=== PATIENT | male | born 1935 | race Caucasian/White ===

== ENCOUNTER → 2017-07-13 | Outpatient (CLI) | payer MEDICARE, OTHER ==
[~2017-07-13] MED LIST: ACTOS15 MG; ALPHA LIPOIC ACID; COD LIVER OIL; ERYTHROMYCIN500 M1 PO; HYDR-3720 PO; IRBE75TA31; ITRA100C; LIDOCAINE JELLY 2% (XYLOCAINE) 5 ML TUBE TOP ONE; MAGNESIUM; MULT-418; NFAMINITAB; OIL OF OREGANO; OMG1KC; TRIVITA; UBID100C8; ZOLP12.5
--- NOTE | 2017-07-13 14:23 | Diagnostic Imaging Report ---
EXAM: Retrograde urethrogram INDICATION: Ureteric stricture Fluoroscopy time: One minute and one second 25 cc of Omnipaque 300 is administered retrogradely show the external meatus. FINDINGS: There are multiple strictures seen in the penile urethra with severe focal strictures in the distal aspect of the penile urethra and areas of dilatation in between. In the posterior aspect of the penile urethra there is a long moderately severe stricture approximately 7 cm in length. The bulbar urethra appears patent. No contrast is seen through the valve in the prostatic urethra segment. 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 Report was faxed to office of Dr. Darden by landen at 2:25 p.m. Dictated by: Dictated on workstation # [id number]
== END ==
LOC: RAD 08:47
PROVIDERS: ATTEND Urology
DX: N35.9 Urethral stricture, unspecified (principal)
CPT/HCPCS: 74450

== ENCOUNTER 2020-01-12 18:52 | Inpatient (IN) | payer MEDICARE, OTHER ==
[~2020-01-12] VITALS: Ht 180.3 cm; Wt 90.5 kg
[2020-01-12] VITALS (11 sets, daily range): BP systolic 101–126; BP diastolic 55–71
[~2020-01-12 18:52] MED LIST changes: -LIDOCAINE JELLY 2% (XYLOCAINE) 5 ML TUBE TOP ONE
--- OUTSIDE RECORDS SUMMARY | 2020-01-12 18:58 | XMS REPORT ---
Author Author Igor FAROOQ Organization [facility] Address [address] [place] [address] Care Team Providers Care [employer] Licensee Name Role Phone PRANAV FAROOQ Unavailable PROBLEMS Unknown Problems ALLERGIES No Information ENCOUNTERS Encounter Location Date Diagnosis [facility] [address] [facility] [id number], [place] [address] Dec, Encounter for immunization Z 23 IMMUNIZATIONS Vaccine Route Administration Date Status TDAP (BOOSTRIX) IM Intramuscular January 17, 2017 Administered SOCIAL HISTORY Never Assessed REASON FOR VISIT Tdap -- jonathan xiao PLAN OF CARE VITAL SIGNS MEDICATIONS Unknown Medications RESULTS No Results PROCEDURES Procedure Date Ordered Result Body Site TDAP (BOOSTRIX) January 17, 2017 SINGLE IMMUNIZATION ADMIN January 17, 2017 INSTRUCTIONS MEDICATIONS ADMINISTERED No Known Medications
--- OUTSIDE RECORDS SUMMARY | 2020-01-12 18:59 | XMS REPORT | Continuity of Care Document ---
Author Organization Unknown Address Unknown Phone Unavailable Allergies Active Description Code Type Severity Reaction Onset Reported/Identified Relationship to Patient Clinical Status Yes NO KNOWN DRUG ALLERGIES UNKNOWN NO KNOWN DRUG ALLERG Yes NO KNOWN DRUG ALLERGIES UNKNOWN UNKNOWN Yes No Known Drug Allergies [id number] Drug Allergy Unknown N/A 07/13/2017 Medications Medication Packaging Start Date St op Date Route Dosage Sig NORMAL SALINE 1000CC IV BAG INJ 0.9 % (NS 1000CC IV BAG) ml 11/27/2018 12/12/2018 CONTINUOUSEVERY 0 Hour Problems Date Dx Coded Attending Type Code Diagnosis Diagnosed By 02/22/2017 Brittani KAY 715.16 OSTEOARTHROSIS, LOCALIZED, PRIMARY, INVOLVING LOWER LEG 02/22/2017 Brittani KAY M17.11 UNILATERAL PRIMARY OSTEOARTHRITIS, RIGHT KNEE 02/22/2017 Brittani KAY V43.65 KNEE JOINT REPLACED BY OTHER MEANS 02/22/2017 Brittani KAY V54.89 OTHER ORTHOPEDIC AFTERCARE 02/22/2017 Brittani KAY Z47.89 ENCOUNTER FOR OTHER ORTHOPEDIC AFTERCARE 02/22/2017 Brittani KAY Z96.651 PRESENCE OF RIGHT ARTIFICIAL KNEE JOINT 07/14/2017 CELINE WREN MD Ot N35.9 URETHRAL STRICTURE, UNSPECIFIED 08/04/2017 CELINE WREN MD Ot N35.9 URETHRAL STRICTURE, UNSPECIFIED 04/19/2018 W 724.2 LUMBAGO 04/19/2018 W M54.5 LOW BACK PAIN 02/09/2019 AYLEEN HIDALGO APRN 780 .2 SYNCOPE AND COLLAPSE 02/09/2019 AYLEEN HIDALGO APRN R55 SYNCOPE AND COLLAPSE 12/19/2019 CELINE WREN MD Ot N35.9 URETHRAL STRICTURE, UNSPECIFIED Procedures There is no data. Results Test Result Range Lipid Panel - 07/03/16 06:33 C/HDL 4.8 3.7-6.7 Cholesterol 168 mg/dL 100-240 HDL 35 mg/dL 30-85 LDL-Calculated 107 mg/dL 0-100 Trig 132 mg/dL 35-160 VLDL 26 mg/dL 0-42 Thyroid Stimulating Hormone - 07/05/17 0 7:11 TSH 2.45 mIU/mL 0.32-5.00 Holter Montor 24 Hour - 08/26/17 15:23 Holter Monitor 24 Hour Complete Thyroid Stimulating Hormone - 12/26/17 0 6:24 TSH 1.41 mIU/mL 0.32-5.00 Testosterone - 10/31/18 07:20 Testosterone 431.52 ng/dL 127.18-1020.36 Thyroid Stimulating Hormone - 10/31/18 0 7:20 TSH 2.32 mIU/mL 0.32-5.00 MRSA Screen - 11/23/18 12:02 FINAL CULTURE RESULTS MRSA Negative Nasal Culture MEDIA PLATED Setup at 12:10 on 11/23/2018 EKG - 11/23/18 12:02 EKG Complete Surgical Pathology - 11/27/18 12:13 Surg Path Sent to [facility] Pathology Cardiac Panel - 02/09/19 11:20 CK 159 U/L 26-174 CK-MB 2.7 ng/ml 0.0-9.2 Myoglobin 134.7 ng/ml 1.6-154.9 Troponin <0.020 ng/mL 0.0-0.4 Encounters ACCT No. Visit Date/Time Discharge Status Pt. Type Provider Facility Loc./Unit Complaint [id number] 01/11/2020 15:40:00 [facility] [id number] 07/13/2017 08:47:00 017 23:59:59 CLS Outpatient SIENA HANSEN, CELINE Mckeon [facility] RAD STRICTURES [id number] 05/21/2019 12:03:00 05/21/2019 23:59: 00 DIS Outpatient JOHN LAWRENCE [id number] 05/21/2019 12:01:00 05/21/2019 23:59: 00 DIS Outpatient JOHN LAWRENCE [id number] 04/02/2019 07:19:00 04/02/2019 23:59: 00 DIS Outpatient JOHN LAWRENCE [id number] 02/09/2019 10:56:00 02/09/2019 13:17: 00 DIS Outpatient AYLEEN HIDALGO APRN [facility] [id number] 11/27/2018 00:00:00 11/27/2018 13:35: 00 DIS Outpatient Viridiana Newsomevanessa [id number] 11/23/2018 10:30:00 11/23/2018 23:59: 00 DIS Outpatient Viridiana Newsomevanessa [id number] 10/31/2018 07:14:00 10/31/2018 23:59: 00 DIS Outpatient NATHANIEL OLIVA [id number] 04/11/2018 08:18:00 04/11/2018 23:59: 00 DIS Outpatient NATHANIEL OLIVA [id number] 12/26/2017 06:08:00 12/26/2017 23:59: 00 DIS Outpatient NATHANIEL OLIVA [id number] 08/26/2017 15:15:00 08/26/2017 23:59: 00 DIS Outpatient Igor Clements [id number] 07/05/2017 07:08:00 07/05/2017 23:59: 00 DIS Outpatient NATHANIEL OLIVA [id number] 02/25/2017 13:41:00 04/19/2017 09:45: 00 DIS Outpatient Brittani KAY [id number] 10/01/2016 07:23:00 10/01/2016 23:59: 00 DIS Outpatient NATHANIEL OLIVA [id number] 07/03/2016 06:32:00 07/03/2016 23:59: 00 DIS Outpatient NATHANIEL OLIVA [id number] 11/23/2018 12:43:19 Document Registration [id number] 04/13/2018 12:43:00 Document Registration
[2020-01-12] MEDS ORDERED: LACTATED RINGERS 1,000 ML IV ONE (19:07)
--- NOTE | 2020-01-12 19:15 | NUR ---
NASAL SWAB COMPLETED FOR COVID TESTING PER DR HANEY
[2020-01-12 19:24] LABS: BASOPHILS % (AUTO) 0 % (0-10); EOSINOPHILS % (AUTO) 0 % (0-10); HEMATOCRIT 36 % (40-54); HEMOGLOBIN 12.1 G/DL (13.3-17.7); LYMPHOCYTES # (AUTO) 0.3 X 10^3 (1.0-4.0); LYMPHOCYTES % (AUTO) 3 % (12-44); MEAN CORPUSCULAR HEMOGLOBIN 30 PG (25-34); MEAN CORPUSCULAR HGB CONC 34 G/DL (32-36); MEAN CORPUSCULAR VOLUME 90 FL (80-99); MONOCYTES # (AUTO) 0.6 X 10^3 (0.0-1.0); MONOCYTES % (AUTO) 6 % (0-12); NEUTROPHILS # (AUTO) 8.2 X 10^3 (1.8-7.8); NEUTROPHILS % (AUTO) 90 % (42-75); PLATELET COUNT 157 10^3/uL (130-400); RED CELL DISTRIBUTION WIDTH 14.9 % (10.0-14.5)
[2020-01-12] MEDS ORDERED: ACETAMINOPHEN 500 MG TAB (TYLENOL) PO ONE (19:30)
[2020-01-12 19:37] LABS: ALBUMIN 3.6 GM/DL (3.2-4.5); POTASSIUM 4.2 MMOL/L (3.6-5.0)
[2020-01-12 19:38] LABS: CALCIUM 8.7 MG/DL (8.5-10.1)
[2020-01-12 19:39] LABS: TOTAL PROTEIN 6.8 GM/DL (6.4-8.2)
[2020-01-12 19:41] LABS: BILIRUBIN,TOTAL 1.4 MG/DL (0.1-1.0)
[2020-01-12 19:43] LABS: CREATININE SERUM 2.23 MG/DL (0.60-1.30)
[2020-01-12 19:46] LABS: MAGNESIUM 2.1 MG/DL (1.6-2.4)
[2020-01-12 19:47] LABS: ERYTHROCYTE SEDIMENTATION RATE 76 MM/HR (0-30)
--- NOTE | 2020-01-12 19:48 | ED General ---
General Chief Complaint: Trauma-Non Activation Stated Complaint: COUGH,FALL Nursing Triage Note: PATIENT FELL BACKWARDS HIT TV, DENIES PAIN Nursing Sepsis Screen: No Definite Risk Source of Information: Patient (VERY LIMITED HISTORIAN AND HARD OF HEARING) History of Present Illness Date Seen by Provider: Jan 12, 2020 Time Seen by Provider: 19:00 Initial Comments PT ARRIVES VIA POV FROM HOME PT HAS NOT FELT WELL FOR THE LAST FEW DAYS STARTED OUT WITH LOW GRADE TEMP OF 99 THAT IS NOW 102.8 HAS HAD A NON-PRODUCTIVE COUGH HAS HAD INCREASING DIZZINESS AND GENERALIZED WEAKNESS, WORSE TODAY\\ TODAY, HE HAD BEEN SITTING IN HIS CHAIR, AND STOOD UP, GOT DIZZY, LOST BALANCE/GOT WEAK AND "FELL BACKWARD"--FAMILY DESCRIBES NEAR-SYNCOPAL EPISODE. PT CANNOT RECALL EVENTS. PT WITH GENERALIZED WEAKNESS AND WAS NOT ABLE TO GET UP FROM THE FLOOR--MULTI-PERSON ASSIST TO GET UP. NO HEAD INJURY NO INCONTINENCE NO HEADACHE NO VISION CHANGES NO CHEST PAIN NO SHORTNESS OF BREATH NO NAUSEA/VOMITING NO PARESTHESIAS OR MOTOR DEFICITS NO SEIZURE ACTIVITY PT HAD AN APPOINTMENT WITH DR. OLIVA ON TUESDAY, BUT WAS ADVISED TO GO TO [facility] AND BE TESTED FOR COVID, WHICH HE DID YESTERDAY. RESULTS ARE NOT BACK OF YET. 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 PT IS NON INSULIN DEPENDENT DIABETIC, AND HAS HAD A BOVINE AORTIC VALVE REPLACEMENT--ON ASPIRIN HAD "MILD" DE IN --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/NO INTERVENTION NO CARDIAC STENTS OR ANGIOPLASTY PCP: DR. OLIVA PROVER: [facility]--REPLACED DR. Magalys BRANDT. Allergies and Home Medications Allergies Coded Allergies: No Known Drug Allergies (Unverified , 07/13/17) Patient Home Medication List Home Medication List Reviewed: Yes Review of Systems Review of Systems Constitutional: see HPI, fever, malaise, weakness EENTM: no symptoms reported Respiratory: see HPI, cough; No short of breath Cardiovascular: see HPI; No chest pain, No edema; other (NEAR-SYNCOPE) Gastrointestinal: no symptoms reported Genitourinary: no symptoms reported Musculoskeletal: no symptoms reported Skin: other (SKIN TEAR ON RIGHT ELBOW) Psychiatric/Neurological: See HPI (NEAR-SYNCOPE); Denies Headache, Denies Numbness, Denies Paresthesia, Denies Seizure, Denies Tingling Past Nckdftz-Wojvnc-Fuacmy Hx Past Med/Social Hx: Reviewed and Corrections made Patient Social History Alcohol Use: Rarely Uses Recreational Drug Use: No Smoking Status: Former Smoker Type Used: Cigarettes 2nd Hand Smoke Exposure: No Recent Foreign Travel: No Contact w/Someone Who Travel: No Recent Infectious Disease Expo: No Recent Hopitalizations: No Physical Abuse: No Sexual Abuse: No Mistreated: No Fear: No Immunizations Up To Date Tetanus Booster (TDap): Unknown Past Medical History Surgeries: Yes (BOVINE AORTIC VALVE REPLACEMENT; CARDIAC CATHS; APPY; KNEE REPLACEMENT) Appendectomy, Joint Replacement, Orthopedic, Valve Replacement Respiratory: No Cardiac: Yes (MILD DE -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;CARDIAC CATHS-NO INTERVENTION;BOVINE AORTIC RAKEL) High Cholesterol, Hypertension, Valvular Heart Disease Neurological: Yes (POSSIBLE TIA YEARS AGO) Genitourinary: Yes Prostate Problems Gastrointestinal: No Musculoskeletal: Yes (KNEE REPLACEMENT) Arthritis Endocrine: Yes Diabetes, 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 oz. kg; 31.00 BMI Method: General Appearance: No Apparent Distress, WD/WN, Other (GENERALIZED WEAKNESS) HEENT: PERRL/EOMI, Normal ENT Inspection Neck: Full Range of Motion, Normal Inspection, Non Tender, Supple; No Carotid Bruit; JVD Respiratory: Normal Breath Sounds, No Accessory Muscle Use, No Respiratory Distress Cardiovascular: No Edema, No JVD, Normal Peripheral Pulses, Systolic Murmur (2/6), Irregularly Irregular Gastrointestinal: Normal Bowel Sounds, No Organomegaly, No Pulsatile Mass, Non Tender, Soft Back: No CVA Tenderness Extremity: Normal Capillary Refill, Normal Inspection, Normal Range of Motion, Non Tender, No Calf Tenderness, No Pedal Edema, Other (MINOR ABRASION/SKIN TEAR RIGHT ELBOW) Neurologic/Psychiatric: Alert, Oriented x3 (BUT POOR MEMORY), No Motor/Sensory Deficits, 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 Norm as Tested Skin: Normal Color, Warm/Dry; No Rash Focused Exam Sepsis Stage: Sepsis Possible Source: Pulmonary Lactate Level 01/12/20 19:10: Lactic Acid Level 1.43 01/12/20 23:10: Lactic Acid Level 0.84 Time of Focused Exam: 20:00 Respiratory: Normal Breath Sounds, No Accessory Muscle Use, No Respiratory Distress Cardiovascular: Regular Rate, Rhythm, Normal Peripheral Pulses Peripheral Pulses: 2+ Dorsalis Pedis (R), 2+ Left Dors-Pedis (L) Skin: normal color, warm/dry Lactic Acid Level Laboratory Tests Test 01/12/20 23:10 Lactic Acid Level 0.84 MMOL/L (0.50-2.00) Within 3hrs of presentation: Admin fluids, Admin ABX, Blood cultures prior to ABX's, Focus exam, Lactate level Progress/Results/Core Measures Suspected Sepsis Recent Fever Within 48 Hours: Yes Infection Criteria Present: Suspected New Infection New/Unexplained Altered Menta: No Sepsis Screen: No Definite Risk SIRS Temperature: Pulse: 60 Respiratory Rate: 20 Laboratory Tests 01/12/20 19:10: White Blood Count 9.0 Blood Pressure 99 /46 Mean: 63 01/12/20 19:10: Lactic Acid Level 1.43 01/12/20 23:10: Lactic Acid Level 0.84 Laboratory Tests 01/12/20 19:10: Creatinine 2.23H, INR Comment 1.1, Platelet Count 157, Total Bilirubin 1.4H Results/Orders Lab Results Laboratory Tests Test 01/12/20 19:10 01/12/20 19:15 01/12/20 19:20 01/12/20 23:10 Range/Units White Blood Count 9.0 4.3-11.0 10^3/uL Red Blood Count 4.03 L 4.35-5.85 10^6/uL Hemoglobin 12.1 L 13.3-17.7 G/DL Hematocrit 36 L 40-54 % Mean Corpuscular Volume 90 80-99 FL Mean Corpuscular Hemoglobin 30 25-34 PG Mean Corpuscular Hemoglobin Concent 34 32-36 G/DL Red Cell Distribution Width 14.9 H 10.0-14.5 % Platelet Count 157 130-400 10^3/uL Mean Platelet Volume 11.0 H 7.4-10.4 FL Neutrophils (%) (Auto) 90 H 42-75 % Lymphocytes (%) (Auto) 3 L 12-44 % Monocytes (%) (Auto) 6 0-12 % Eosinophils (%) (Auto) 0 0-10 % Basophils (%) (Auto) 0 0-10 % Neutrophils # (Auto) 8.2 H 1.8-7.8 X 10^3 Lymphocytes # (Auto) 0.3 L 1.0-4.0 X 10^3 Monocytes # (Auto) 0.6 0.0-1.0 X 10^3 Eosinophils # (Auto) 0.0 0.0-0.3 10^3/uL Basophils # (Auto) 0.0 0.0-0.1 10^3/uL Erythrocyte Sedimentation Rate 76 H 0-30 MM/HR Prothrombin Time 14.5 12.2-14.7 SEC INR Comment 1.1 0.8-1.4 Activated Partial Thromboplast Time 40 H 24-35 SEC D-Dimer 1.42 H 0.00-0.49 UG/ML Sodium Level 135 135-145 MMOL/L Potassium Level 4.2 3.6-5.0 MMOL/L Chloride Level 103 98-107 MMOL/L Carbon Dioxide Level 22 21-32 MMOL/L Anion Gap 10 5-14 MMOL/L Blood Urea Nitrogen 38 H 7-18 MG/DL Creatinine 2.23 H 0.60-1.30 MG/DL Estimat Glomerular Filtration Rate 28 BUN/Creatinine Ratio 17 Glucose Level 163 H 70-105 MG/DL Lactic Acid Level 1.43 0.84 0.50-2.00 MMOL/L Calcium Level 8.7 8.5-10.1 MG/DL Corrected Calcium 9.0 8.5-10.1 MG/DL Magnesium Level 2.1 1.6-2.4 MG/DL Total Bilirubin 1.4 H 0.1-1.0 MG/DL Aspartate Amino Transf (AST/SGOT) 22 5-34 U/L Alanine Aminotransferase (ALT/SGPT) 14 0-55 U/L Alkaline Phosphatase 60 40-136 U/L Lactate Dehydrogenase 200 125-220 U/L Total Creatine Kinase 227 H 30-200 U/L Creatine Kinase MB 1.9 <6.6 NG/ML Myoglobin 353.5 H 10.0-92.0 NG/ML Troponin I 0.190 H <0.028 NG/ML C-Reactive Protein High Sensitivity 15.84 H 0.00-0.50 MG/DL B-Type Natriuretic Peptide 924.7 H <100.0 PG/ML Total Protein 6.8 6.4-8.2 GM/DL Albumin 3.6 3.2-4.5 GM/DL Procalcitonin 0.40 H <0.10 NG/ML TSH Warren Testing 2.46 0.35-4.94 UIU/ML Glucometer 161 H 70-110 MG/DL My Orders Orders - BENJAMÍN HANEY DO Accucheck Stat ONCE (01/12/20 19:07) Ed Iv/Invasive Line Start (01/12/20:07) Ekg Tracing (01/12/20:07) Monitor-Rhythm Ecg Trace Only (01/12/20:07) Chest 1 View, Ap/Pa Only (01/12/20:07) BNP (01/12/20:07) Cbc With Automated Diff (01/12/20:07) Comprehensive Metabolic Panel (01/12/20:07) Creatine Kinase (01/12/20 19:07) Creatine Kinase Mb (01/12/20:07) Lactic Acid Analyzer (01/12/20 19:07) Magnesium (01/12/20 19:07) Procalcitonin (Pct) (01/12/20 19:07) Protime With Inr (01/12/20:07) Partial Thromboplastin Time (01/12/20:07) Thyroid Analyzer (01/12/20 19:07) Ua Culture If Indicated (01/12/20 19:07) Blood Culture (01/12/20 19:07) Myoglobin Serum (01/12/20 19:07) Troponin I (01/12/20 19:07) Ed Iv/Invasive Line Start (01/12/20 19:07) Lactated Ringers (Lr 1000 Ml Iv Solution (01/12/20 19:07) Fibrin Degradation Products (01/12/20 19:07) Hs C Reactive Protein (01/12/20 19:07) Erythrocyte Sedimentation Rate (01/12/20 19:07) LDH (01/12/20 19:07) Coronavirus Sars-Cov-2 So 2019 (01/12/20 19:07) Acetaminophen Tablet (Tylenol Tablet) (01/12/20 19:30) Ekg Tracing (01/12/20 19:25) Ekg Tracing (01/12/20 20:00) Ekg Tracing (01/12/20 20:00) Ekg Tracing (01/12/20 20:00) Vital Signs Adult Sepsis Patie Q15M (01/12/20 20:13) Remove Rings In Anticipation O (01/12/20 20:13) Ceftriaxone For Iv Use (Rocephin For I (01/12/20 20:15) Azithromycin Injection (Zithromax Inject (01/12/20 20:15) Magnesium 1 Gm/100 Ml Ivpb (Magnesium Vasquez (01/12/20 20:30) Enoxaparin Injection (Lovenox Injection) (01/12/20 20:30) Ed Iv/Invasive Line Start (01/12/20 20:56) Ns Iv 1000 Ml (Sodium Chloride 0.9%) (01/12/20 20:56) 1/2 Ns Iv Solution (0.45% Sodium Chlorid (01/12/20 22:00) Medications Given in ED Current Medications Medications Dose Ordered Sig/Mary Kate Route Start Time Stop Time Status Last Admin Dose Admin Acetaminophen 1,000 mg ONCE ONCE PO 01/12/20 19:30 01/12/20 19:31 DC 01/12/20 19:35 1,000 MG Azithromycin 500 mg/Sodium Chloride 250 ml @ 250 mls/hr ONCE ONCE IV 01/12/20 20:15 01/12/20 21:14 DC 01/12/20 20:35 250 MLS/HR Ceftriaxone Sodium 1000 mg/ Sterile Water 10 ml @ 200 mls/hr ONCE ONCE IV 01/12/20 20:15 01/12/20 20:17 DC 01/12/20 20:24 200 MLS/HR Enoxaparin Sodium 100 mg ONCE ONCE SC 01/12/20 20:30 01/12/20 20:31 DC 01/12/20 20:35 100 MG Lactated Ringer's 1,000 ml @ 0 mls/hr Q0M ONCE IV 01/12/20 19:07 01/12/20 19:11 DC 01/12/20 19:22 0 MLS/HR Vital Signs/I&O 01/12/20 01/12/20 01/12/20 01/12/20 18:58 19:35 19:50 20:13 Temp 39.3 39.3 38.0 Pulse 60 61 59 Resp 20 22 18 B/P (MAP) 99/46 (63) 126/64 (84) 113/56 (75) Pulse Ox 97 95 93 O2 Delivery Room Air Room Air Room Air 01/12/20 01/12/20 01/12/20 01/12/20 20:30 20:53 21:00 21:30 Temp 36.9 Pulse 57 62 54 58 Resp 18 21 23 18 B/P (MAP) 114/59 (77) 107/68 (81) 110/55 (73) 103/57 (72) Pulse Ox 94 96 94 95 O2 Delivery Room Air Room Air Room Air Room Air 01/12/20 01/12/20 01/12/20 01/12/20 22:11 22:15 22:21 22:30 Temp 36.9 37.0 Pulse 50 60 60 60 Resp 24 B/P (MAP) 96/41 107/61 (76) 102/60 (74) Pulse Ox 94 91 91 O2 Delivery Room Air Room Air Room Air 01/12/20 01/12/20 01/12/20 01/12/20 22:45 23:00 23:13 23:30 Pulse 54 53 52 Resp 10 26 25 B/P (MAP) 105/64 (78) 101/64 (76) 108/71 (83) Pulse Ox 94 90 93 O2 Delivery Room Air Room Air Room Air Room Air 01/13/20 01/13/20 01/13/20 00:21 01:00 02:25 Temp 39.3 36.4 Pulse 60 51 Pulse Ox 97 O2 Delivery Room Air 01/13/20 00:00 Intake Total 10 ml Balance 10 ml Capillary Refill : Less Than 3 Seconds Blood Pressure Mean: 63 Point of Care Testing Finger Stick Blood Glucose: 161 Progress Note : Progress Note PT SEEN IN COVID UNIT. PPE WORN AT ALL TIMES GIVEN IV FLUIDS AND TYLENOL--TEMP DOWN NO DETERIORATION IN PT'S CONDITION VITALS STABLE--O2 SATS IN MID 90'S ON ROOM AIR THROUGHOUT STAY. PT APPEARS TO HAVE NSR WITH INTERMITTENT TYPE 2 HEART BLOCK ECG Initial ECG Impression Date: Jan 12, 2020 Initial ECG Impression Time: 18:57 Initial ECG Rate: 64 Initial ECG Comparisson: No Previous ECG Available Comment SECOND DEGREE HEART BLOCK EKG : EKG Time: 19:14 Rate: 62 Rhythm: Normal Sinus Comment EKG #3 AT 1949--RATE 60--IRREGULAR RATE, NO P-WAVES VISIBLE. NO ST SEGMENT CHANGES EKG #4 AT 1950--RATE 63--IRREGULAR RATE, NO P-WAVES VISIBLE. NO ST SEGMENT CHANGES EKG #5 AT 1951--RATE 60--IRREGULAR RATE, NO P WAVES VISIBLE, NO ST SEGMENT CHANGES Diagnostic Imaging Comments CXR--PER RADIOLOGIST REPORT AT 2009 IMPRESSION: There is cardiomegaly and evidence of prior cardiac surgery. There also appears to be mild pneumonia/atelectasis in the left retrocardiac region and there may be a small amount of fluid in the right lung base. If further study is desired, then a follow-up PA and lateral chest would be recommended. Reviewed: Reviewed by Me Departure Communication (Admissions) Family Conversation SPOKE WITH PT'S DAUGHTER, GRAHAM NICE, AND UPDATED HER ON PT'S CONDITION AND SHE WAS ABLE TO GIVE ADDITIONAL PAST MEDICAL HISTORY 2032--SPOKE WITH PT'S , INFORMED HER OF NEED FOR ADMIT AND UPDATED HER ON PT'S CONDITION. 2019--SPOKE WITH DR. ESCALANTE, PROVER, WILL SEE PT IN CONSULT. NO ADDITIONAL RECOMMENDATIONS AT THIS TIME 2026--SPOKE WITH DR. MOSES, HOSPITALIST. ACCEPTS PT FOR ADMIT. Impression Primary Impression: COVID P.U.I. Additional Impressions: LLL pneumonia Sepsis Elevated troponin Arrhythmia RENAL FAILURE/INSUFFICIENCY Near syncope Generalized weakness Disposition: ADMITTED INPATIENT Condition: Stable Admissions Decision to Admit Reason: Admit from ER (General) Decision to Admit/Date: Jan 12, 2020 Time/Decision to Admit Time: 20:20 Departure-Patient Inst. Referrals: NATHANIEL OLIVA MD (PCP/Family) Primary Care Physician BENJAMÍN HANEY DO Jan 12, 2020 19:48
[2020-01-12 19:55] LABS: CREATINE KINASE MB 1.9 NG/ML (<6.6)
--- NOTE | 2020-01-12 20:01 | Diagnostic Imaging Report ---
INDICATION: Cough. EXAMINATION: Portable erect AP chest at 7:33 p.m. COMPARISON: There is no prior study available for comparison. FINDINGS: The heart is enlarged and there are sternotomy wires and surgical clips evident consistent with prior coronary artery bypass procedure. There is elevation of the right hemidiaphragm and there may be a small amount of fluid and/or pleural thickening involving the right lung base. The right lung, where visualized, is clear. There are a few crowded bronchovascular markings in the left retrocardiac region. There could be an element of mild pneumonia/atelectasis in this area as well. The left upper lung is generally clear. The mediastinum is not widened. The osseous structures are intact. There is an orthopedic plate and screw fixation device overlying the mid cervical spine. IMPRESSION: There is cardiomegaly and evidence of prior cardiac surgery. There also appears to be mild pneumonia/atelectasis in the left retrocardiac region and there may be a small amount of fluid in the right lung base. If further study is desired, then a follow-up PA and lateral chest would be recommended. Dictated by: Dictated on workstation # [id number]
[2020-01-12 20:07] LABS: TSH (THYROID ANALYZER) 2.46 UIU/ML (0.35-4.94)
[2020-01-12] MEDS ORDERED: cefTRIAXone FOR IV USE 1,000 MG in WATER (STERILE) FOR INJECTION 10 ML IV ONE (20:15)
[2020-01-12] MEDS ORDERED: AZITHROMYCIN INJECTION 500 MG in NS (IVPB) 250 ML IV ONE (20:15)
[2020-01-12] MEDS ORDERED: MAGNESIUM 1 GM/100 ML IVPB 100 ML IV SCH (20:30)
[2020-01-12] MEDS ORDERED: ENOXAPARIN 100 MG/1 ML (LOVENOX) SYR SC ONE (20:30)
[2020-01-12 20:44] LABS: FIBRIN DEGRADATION PRODUCTS 1.42 UG/ML (0.00-0.49); INR 1.1 (0.8-1.4); PROTHROMBIN TIME PATIENT 14.5 SEC (12.2-14.7)
[2020-01-12] MEDS ORDERED: NS IV 1000 ML 1,000 ML IV SCH (20:56)
[2020-01-12] MEDS ORDERED: 1/2 NS IV SOLUTION 1,000 ML IV ONE (22:00)
--- OUTSIDE RECORDS SUMMARY | 2020-01-12 22:16 | XMS REPORT | Continuity of Care Document ---
Author Organization Unknown Address Unknown Phone Unavailable Allergies Active Description Code Type Severity Reaction Onset Reported/Identified Relationship to Patient Clinical Status Yes NO KNOWN DRUG ALLERGIES UNKNOWN NO KNOWN DRUG ALLERG Yes NO KNOWN DRUG ALLERGIES UNKNOWN UNKNOWN Yes No Known Drug Allergies [id number] Drug Allergy Unknown N/A 07/13/2017 Medications Medication [...] - 11/27/18 12:13 Surg Path Sent to [facility] Pathology Cardiac Panel - 02/09/19 11:20 CK 159 U/L 26-174 CK-MB 2.7 ng/ml 0.0-9.2 Myoglobin 134.7 ng/ml 1.6-154.9 Troponin <0.020 ng/mL 0.0-0.4 Complete blood count (CBC) with automate d white blood cell (WBC) differential - 01/12/20 19:10 Blood leukocytes automated count (number/volume) 9.0 10*3/uL 4.3-11.0 Blood erythrocytes automated count (number/volume) 4.03 10*6/uL 4.35-5.85 Venous blood hemoglobin measurement (mass/volume) 12.1 g/dL 13.3-17.7 Blood hematocrit (volume fraction) 36 % 40-54 Automated erythrocyte mean corpuscular volume 90 [ foz_us] 80-99 Automated erythrocyte mean corpuscular h emoglobin (mass per erythrocyte) 30 pg 25-34 Automated erythrocyte mean corpuscular h emoglobin concentration measurement (mass/volume) 34 g/dL 32-36 Automated erythrocyte distribution width ratio 14. 9 % 10.0- 14.5 Automated blood platelet count (count/volume) 157 10*3/uL 130-400 Automated blood platelet mean volume measurement 11.0 [foz_us] 7.4-10.4 Automated blood neutrophils/100 leukocytes 90 % 42-75 Automated blood lymphocytes/100 leukocytes 3 % 12-44 Blood monocytes/100 leukocytes 6 % 0-12 Automated blood eosinophils/100 leukocytes 0 % 0-10 Automated blood basophils/100 leukocytes 0 % 0-10 Blood neutrophils automated count (number/volume) 8.2 10*3 1.8-7.8 Blood lymphocytes automated count (number/volume) 0.3 10*3 1.0-4.0 Blood monocytes automated count (number/volume) 0. 6 10*3 0.0-1.0 Automated eosinophil count 0.0 10*3/uL 0 .0-0.3 Automated blood basophil count (count/volume) 0.0 10*3/uL 0.0-0.1 Comprehensive metabolic panel - 01/12/20 19:10 Serum or plasma sodium measurement (moles/volume) 135 mmol/L 135-145 Serum or plasma potassium measurement (moles/volume) 4.2 mmol/L 3.6-5.0 Serum or plasma chloride measurement (moles/volume) 103 mmol/L 98-107 Carbon dioxide 22 mmol/L 21-32 Serum or plasma anion gap determination (moles/volume) 10 mmol/L 5-14 Serum or plasma urea nitrogen measurement (mass/volume ) 38 mg/dL 7-18 Serum or plasma creatinine measurement (mass/volume) 2.23 mg/dL 0.60-1.30 Serum or plasma urea nitrogen/creatinine mass ratio 17 NRG Serum or plasma creatinine measurement w ith calculation of estimated glomerular filtration rate 28 NRG Serum or plasma glucose measurement (mass/volume) 163 mg/dL 70-105 Serum or plasma calcium measurement (mass/volume) 8.7 mg/dL 8.5-10.1 Serum or plasma total bilirubin measurement (mass/volu me) 1.4 mg/dL 0.1-1.0 Serum or plasma alkaline phosphatase nancy surement (enzymatic activity/volume) 60 U/L 40-136 Serum or plasma aspartate aminotransfera se measurement (enzymatic activity/volume) 22 U/L 5-34 Serum or plasma alanine aminotransferase measurement (enzymatic activity/volume) 14 U/L 0-55 Serum or plasma protein measurement (mass/volume) 6.8 g/dL 6.4-8.2 Serum or plasma albumin measurement (mass/volume) 3.6 g/dL 3.2-4.5 CALCIUM CORRECTED 9.0 mg/dL 8.5-10.1 Magnesium - 01/12/20 19:10 Magnesium 2.1 mg/dL 1.6-2.4 Serum ragweed IgE antibody assay - 01/11 19:10 Serum ragweed IgE antibody assay 200 U/L 125-220 PROCALCITONIN (PCT) - 01/12/20 19:10 PROCALCITONIN (PCT) 0.40 ng/mL <0.10 Erythrocyte sedimentation rate by roxanne gren method - 01/12/20 19:10 Erythrocyte sedimentation rate by westergren method 76 mm 0- 30 Blood lactic acid measurement (moles/vol ume) - 01/12/20 19:10 Blood lactic acid measurement (moles/volume) 1.43 mmol/L 0.50-2.00 Serum or plasma creatine kinase measurem ent (enzymatic activity/volume) - 01/12/20 19:10 Serum or plasma creatine kinase measurem ent (enzymatic activity/volume) 227 U/L 30-200 Serum or plasma creatine kinase MB measu rement (enzymatic activity/volume) - 01/12/20 19:10 Serum or plasma creatine kinase MB measu rement (enzymatic activity/volume) 1.9 ng/mL <6.6 Serum or plasma troponin i.cardiac measu rement (mass/volume) - 01/12/20 19:10 Serum or plasma troponin i.cardiac measurement (mass/v olume) 0.190 ng/mL <0.028 Myoglobin, serum - 01/12/20 19:10 Myoglobin, serum 353.5 ng/mL 10.0-92.0 Serum or plasma lithium measurement (mol es/volume) - 01/12/20 19:10 BNP PT 924.7 pg/mL <100.0 Serum or plasma thyrotropin measurement by detection limit <=0.05 miu/l (units/volume) - 01/12/20 19:10 Serum or plasma thyrotropin measurement by detection limit <=0.05 miu/l (units/volume) 2.46 u[iU]/mL 0.35-4.94 Serum or plasma C reactive protein measu rement (mass/volume) - 01/12/20 19:10 Serum or plasma C reactive protein measurement (mass/v olume) 15.84 mg/dL 0.00-0.50 PT panel in platelet poor plasma by coag ulation assay - 01/12/20 19:10 Prothrombin time (PT) in platelet poor plasma by coagu lation assay 14.5 s 12.2-14.7 INR in platelet poor plasma or blood by coagulation as say 1.1 0.8-1.4 Activated partial thromboplastin time (a PTT) in platelet poor plasma bycoagulation assay - 01/12/20 19:10 Activated partial thromboplastin time (a PTT) in platelet poor plasma bycoagulation assay 40 s 24-35 Fibrin D-dimer FEU measurement in platel et poor plasma (mass/volume) - 01/12/20 19:10 Fibrin D-dimer FEU measurement in platelet poor plasma (mass/volume) 1.42 ug/mL 0.00-0.49 Capillary blood glucose measurement by g lucometer (mass/volume) - 01/12/20 19:20 Capillary blood glucose measurement by glucometer (mas s/volume) 161 mg/dL 70-110 Encounters ACCT No. Visit Date/Time Discharge Status Pt. Type Provider Facility Loc./Unit Complaint [id number] 01/11/2020 15:40:00 ACT [facility] [id number] 07/13/2017 08:47:00 017 23:59:59 CLS Outpatient CELINE WREN MD [facility] RAD CHRISTIANACARES [id number] 01/12/2020 19:31:00 Document Registration [id number] 05/21/2019 12:03:00 05/21/2019 23:59: 00 DIS Outpatient JOHN LAWRENCE [id number] 05/21/2019 12:01:00 05/21/2019 23:59: 00 DIS Outpatient JOHN LAWRENCE [id number] 04/02/2019 07:19:00 04/02/2019 23:59: 00 DIS Outpatient JOHN LAWRENCE [id number] 02/09/2019 10:56:00 02/09/2019 13:17: 00 DIS Outpatient AYLEEN HIDALGO APRN [facility] [id number] 11/27/2018 00:00:00 11/27/2018 13:35: 00 DIS Outpatient Aryan Newsome [id number] 11/23/2018 10:30:00 11/23/2018 23:59: 00 DIS Outpatient Aryan Newsome [id number] 10/31/2018 07:14:00 10/31/2018 23:59: 00 DIS Outpatient NATHANIEL OLIVA [id number] 04/11/2018 08:18:00 04/11/2018 23:59: 00 DIS Outpatient NATHANIEL OLIVA [id number] 12/26/2017 06:08:00 12/26/2017 23:59: 00 DIS Outpatient NATHANIEL OLIVA [id number] 08/26/2017 15:15:00 08/26/2017 23:59: 00 DIS Outpatient Igor Clements [id number] 07/05/2017 07:08:00 07/05/2017 23:59: 00 DIS Outpatient NATHANIEL OLIVA [id number] 02/25/2017 13:41:00 04/19/2017 09:45: 00 DIS Outpatient Brittani KAY [id number] 10/01/2016 07:23:00 10/01/2016 23:59: 00 DIS Outpatient NATHANIEL OLIVA [id number] 07/03/2016 06:32:00 07/03/2016 23:59: 00 DIS Outpatient NATHANIEL OLIVA [id number] 11/23/2018 12:43:19 Document Registration [id number] 04/13/2018 12:43:00 Document Registration
[2020-01-12] MEDS: 1/2 NS IV SOLUTION 1,000 ML IV SCH (22:41)
[2020-01-12] MEDS ORDERED: VANCOMYCIN INJECTION 1,000 MG in NS (IVPB) 250 ML IV SCH (22:45)
[2020-01-13] VITALS (25 sets, daily range): BP systolic 89–162; BP diastolic 46–97
[2020-01-13] MEDS ORDERED: RT-ALBUTEROL INHALER HFA (VENTOLIN HFA) 8 GM IH PRN (00:45)
[2020-01-13] MEDS ORDERED: VANCOMYCIN 1000 MG/VIAL ONE (02:22)
[2020-01-13] MEDS ORDERED: NS (IVPB) 250 ML ONE (02:23)
[2020-01-13 02:55] LABS: BASOPHILS % (AUTO) 0 % (0-10); EOSINOPHILS % (AUTO) 0 % (0-10); HEMATOCRIT 35 % (40-54); HEMOGLOBIN 11.7 G/DL (13.3-17.7); LYMPHOCYTES # (AUTO) 0.5 X 10^3 (1.0-4.0); LYMPHOCYTES % (AUTO) 7 % (12-44); MEAN CORPUSCULAR HEMOGLOBIN 30 PG (25-34); MEAN CORPUSCULAR HGB CONC 33 G/DL (32-36); MEAN CORPUSCULAR VOLUME 91 FL (80-99); MEAN PLATELET VOLUME 11.3 FL (7.4-10.4); MONOCYTES # (AUTO) 0.6 X 10^3 (0.0-1.0); MONOCYTES % (AUTO) 7 % (0-12); NEUTROPHILS % (AUTO) 87 % (42-75); PLATELET COUNT 149 10^3/uL (130-400); RED CELL DISTRIBUTION WIDTH 14.9 % (10.0-14.5); WHITE BLOOD COUNT 8.1 10^3/uL (4.3-11.0)
[2020-01-13] MEDS ORDERED: RT-ALBUTEROL SULF 2.5 MG/3 ML PRE-MIX VIAL IH PRN (03:00)
[2020-01-13 03:07] LABS: ALBUMIN 3.3 GM/DL (3.2-4.5)
[2020-01-13 03:08] LABS: POTASSIUM 3.9 MMOL/L (3.6-5.0)
[2020-01-13 03:09] LABS: CALCIUM 8.4 MG/DL (8.5-10.1)
[2020-01-13 03:10] LABS: TOTAL PROTEIN 6.3 GM/DL (6.4-8.2)
[2020-01-13 03:12] LABS: BILIRUBIN,TOTAL 1.1 MG/DL (0.1-1.0)
[2020-01-13 03:13] LABS: PHOSPHORUS 3.7 MG/DL (2.3-4.7)
[2020-01-13 03:14] LABS: CREATININE SERUM 1.86 MG/DL (0.60-1.30)
[2020-01-13 03:16] LABS: MAGNESIUM 2.1 MG/DL (1.6-2.4)
[2020-01-13] MEDS: MAGNESIUM 1 GM/100 ML IVPB 100 ML IV SCH (05:50)
[2020-01-13] MEDS: POTASSIUM CL 10MEQ/50ML IVPB 50 ML IV SCH (05:50)
[2020-01-13] MEDS: KCL 20 MEQ TAB (K-DUR) PO SCH (05:51)
[2020-01-13] MEDS: inSUlin ASPART (NovoLOG) 1 UNIT/0.01 ML (CHARGE PER UNIT) SC SCH ×4 (05:51→20:04)
--- NOTE | 2020-01-13 07:09 | NUR ---
pt is in the bathroom. 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 pt is on room air with a o2 saturation of 98% Addendum: 01/13/20 at 0710 by MITCHELL CASTLE RT Amended: Links added.
[2020-01-13] MEDS ORDERED: ENOXAPARIN 100 MG/1 ML (LOVENOX) SYR SC SCH (08:00)
[2020-01-13] MEDS: AZITHROMYCIN 250 MG TAB (ZITHROMAX) PO SCH (09:13)
[2020-01-13] MEDS: CEFEPIME INJECTION 2,000 MG in WATER (STERILE) FOR INJECTION 20 ML IV SCH ×2 (09:13→20:06)
[2020-01-13] MEDS: 1/2 NS IV SOLUTION 1,000 ML IV SCH ×2 (09:14→20:04)
--- NOTE | 2020-01-13 09:23 | NUR ---
PATIENT HEIGHT ENTERED 71.00CM (PREVIOUSLY ENTERED 180.30CM) REQUESTED CORRECTION FROM RN 01/11 APPROX [id number] Addendum: 01/13/20 at 0926 by STEPHANIE COOLEY [facility] 01/12
--- NOTE | 2020-01-13 09:52 | History & Physical-Hospitalist ---
History of Present Illness HPI/Chief Complaint Pt is an 84yoCm with a PMH of HTN, aortic valve replacement, and NIDDMII who presented to the ER due to weakness. He is very hard of hearing and unfortunately with all of the COVID precautions conversation with patient is limited. He seems slightly confused as he did not know that he was in the hospital. I did speak to his daughter who is an RN here. All history if obtained from her and the ER note. Apparently he has not felt well for the past few days and yesterday was more weak and had a near syncopal episode. It took multiple family members to get him up so he was brought in for evaluation. He was found to be febrile and had a LLL PNA on CXR along with a mild RUSTAM. He does have an indirect exposure to COVID19 and per his daughter has been going to the grocery store and out regularly. She believes he does wear a mask and wash his hands though. Today he denies any complaints and is feeling a bit better. Source: patient Date Seen 01/13/20 Time Seen by a Provider: 09:38 Attending Physician Cleve Keating MD PCP Rosario Barrientos MD Referring Physician Date of Admission Jan 12, 2020 at 20:30 Home Medications & Allergies Home Medications Reviewed patient Home Medication Reconciliation performed by pharmacy medication reconciliations iv technician and/or nursing. Patients Allergies have been reviewed. Allergies Allergies Coded Allergies No Known Drug Allergies (Crlrkubefc06/20/17) Past Hjhgekk-Vxnupi-Yzblfw Hx Past Med/Social Hx: Reviewed and Corrections made Patient Social History Marrital Status: Alcohol Use: Rarely Uses Recreational Drug Use: No Smoking Status: Former Smoker Type Used: Cigarettes 2nd Hand Smoke Exposure: No Recent Foreign Travel: No Contact w/other who traveled: No Recent Hopitalizations: No Recent Infectious Disease Expo: No Immunizations Up To Date Tetanus Booster (TDap): Unknown Past Medical History Surgeries: Appendectomy, Joint Replacement, Orthopedic, Valve Replacement Cardiac: High Cholesterol, Hypertension, Valvular Heart Disease Genitourinary: Prostate Problems Musculoskeletal: Arthritis Endocrine: Diabetes, Non-Insulin dep Hearing Impairment: Hard of Hearing History of Blood Disorders: No Family History Reviewed Nursing Family Hx No Pertinent Family Hx Review of Systems ROS-Unable to Obtain: limited due to difficulty hearing Constitutional: fever, weakness Cardiovascular: No chest pain Gastrointestinal: No abdominal pain; loss of appetite Physical Exam Physical Exam Vital Signs Vital Signs - First Documented 01/12/20 18:58 Temp 39.3 Pulse 60 Resp 20 B/P (MAP) 99/46 (63) Pulse Ox 97 O2 Delivery Room Air Capillary Refill : Less Than 3 Seconds Height, Weight, BMI Height: '" Weight: lbs. oz. kg; 201.74 BMI Method: General Appearance: No Apparent Distress, WD/WN Eyes: Bilateral Eye PERRL HEENT: Moist Mucous Membranes, Other (hard of hearing) Neck: Normal Inspection, Supple Respiratory: Lungs Clear, No Accessory Muscle Use, No Respiratory Distress Cardiovascular: Systolic Murmur, Irregularly Irregular Gastrointestinal: Normal Bowel Sounds, Soft Extremity: Normal Capillary Refill, No Calf Tenderness, No Pedal Edema Neurologic/Psychiatric: Alert; No Facial Droop; Other (oriented to person and situation) Skin: Normal Color, Warm/Dry Results Results/Procedures Labs Laboratory Tests 01/12/20 19:10 01/13/20 02:45 Patient resulted labs reviewed. Imaging: Reviewed Imaging Report Imaging [facility], [place] NAME: AGUSTÍN BARAKAT [facility] REC#: [id number] PT STATUS: REG ER : 1935 PHYSICIAN: BENJAMÍN HANEY DO ADMIT DATE: 01/12/20/ER Signed Date of Exam:01/12/20 CHEST 1 VIEW, AP/PA ONLY INDICATION: Cough. EXAMINATION: Portable erect AP chest at 7:33 p.m. COMPARISON: There is no prior study available for comparison. FINDINGS: The heart is enlarged and there are sternotomy wires and surgical clips evident consistent with prior coronary artery bypass procedure. There is elevation of the right hemidiaphragm and there may be a small amount of fluid and/or pleural thickening involving the right lung base. The right lung, where visualized, is clear. There are a few crowded bronchovascular markings in the left retrocardiac region. There could be an element of mild pneumonia/atelectasis in this area as well. The left upper lung is generally clear. The mediastinum is not widened. The osseous structures are intact. There is an orthopedic plate and screw fixation device overlying the mid cervical spine. IMPRESSION: There is cardiomegaly and evidence of prior cardiac surgery. There also appears to be mild pneumonia/atelectasis in the left retrocardiac region and there may be a small amount of fluid in the right lung base. If further study is desired, then a follow-up PA and lateral chest would be recommended. Dictated by: Dictated on workstation # [id number] Dict: 01/12/201943 Trans: 01/12/202120 PJE [id number] Interpreted by: LAYO PRUETT MD Electronically signed by: LAYO PRUETT MD 01/12/202120 Assessment/Plan Admission Diagnosis Severe Sepsis (present on arrival) RUSTAM LLL PNA PNA noted on CXR Febrile and tachypneic/tachycardiac Lactic normal MAP of 63 on arrival and RUSTAM- meets severe criteria- received 30cc/kg bolus per IBW (which would be 2250ml) Continue on broad spectrum abx Await cultures had indirect COVID exposure and is febrile and lymphopenic so PCR sent, also had testing done as an outpatient on 01/10, maintain in isolation until results back HTN Bovine Aortic valve Replacement ?heart block Cardiology consulted, appreciate recs DC therapeutic Lovenox as daughter confirmed he is not on anticoagulation resume ASA tomorrow NIDDMII SSI DVT ppx: Received therapeutic dose of lovenox today already, resume ppx dose tomorrow Admission Status: Inpatient Order (span 2 midnights) Reason for Inpatient Admission: Svere sepsis, IV abx needed, will take more than two midnights to stabilize for DC Clinical Quality Measures DVT/VTE Risk/Contraindication: Risk Factor Score Per Nursin RFS Level Per Nursing on Admit: 3=High CLEVE KEATING MD Jan 13, 2020 09:52
--- NOTE | 2020-01-13 10:46 | Consultation-Cardiology ---
HPI-Cardiology Cardiology Consultation Date of Consultation 01/13/20 Date of Admission Time Seen by Provider: 09:38 Indication: Shortness of breath HPI 84 years old gentleman with history of aortic valve replacement using porcine valve, diabetes mellitus, hypertension. Patient presented to the emergency room then he was admitted, it was reported that he did not feel well for the past few days. Became more weak and had an episode where he fell backward while trying to stand up. He has been having low-grade fever became worse when he was checked in the hospital, appeared to have left lower lobe pneumonia on chest x- ray, he had exposure indirectly to COVID 19 patients, he was noted to have elevated BNP and minimal elevation in troponin. I was called for evaluation of his cardiac status, during my evaluation patient denied any active chest pain, no significant dyspnea, generalized malaise Home Medications & Allergies Allergies: Coded Allergies: No Known Drug Allergies (Unverified , 07/13/17) Home Medication List Reviewed: Yes IVN-Hnpjrj-Hsawcz Hx Patient Social History Marital Status: Alcohol Use: Rarely Uses Recreational Drug Use: No Smoking Status: Former Smoker Type Used: Cigarettes 2nd Hand Smoke Exposure: No Recent Foreign Travel: No Recent Infectious Disease Expo: No Recent Hopitalizations: No Immunizations Up To Date Tetanus Booster (TDap): Unknown Past Medical History Discussed below Family Medical History Significant Family History: No Pertinent Family Hx Family Medical Hx Noncontributory to his current condition Review of Systems-General Review of Systems Constitutional: see HPI, fever, weakness EENTM: see HPI, no symptoms reported Respiratory: see HPI, cough; No dyspnea on exertion, No hemoptysis, No orthopnea, No phlegm; short of breath; No stridor, No wheezing, No other Cardiovascular: see HPI; No chest pain, No edema, No Hx of Intervention, No palpitations, No syncope, No vascular heart diseas, No other Gastrointestinal: see HPI; No abdominal pain; loss of appetite Genitourinary: no symptoms reported, see HPI Musculoskeletal: no symptoms reported, see HPI Skin: see HPI, other (SKIN TEAR ON RIGHT ELBOW) Psychiatric/Neurological: See HPI (NEAR-SYNCOPE); Denies Headache, Denies Numbness, Denies Paresthesia, Denies Seizure, Denies Tingling Reviewed Test Results Reviewed Test Results Lab Laboratory Tests Test 01/12/20 19:10 01/12/20 19:15 01/12/20 19:20 01/12/20 23:10 Range/Units White Blood Count 9.0 4.3-11.0 10^3/uL Red Blood Count 4.03 L 4.35-5.85 10^6/uL Hemoglobin 12.1 L 13.3-17.7 G/DL Hematocrit 36 L 40-54 % Mean Corpuscular Volume 90 80-99 FL Mean Corpuscular Hemoglobin 30 25-34 PG Mean Corpuscular Hemoglobin Concent 34 32-36 G/DL Red Cell Distribution Width 14.9 H 10.0-14.5 % Platelet Count 157 130-400 10^3/uL Mean Platelet Volume 11.0 H 7.4-10.4 FL Neutrophils (%) (Auto) 90 H 42-75 % Lymphocytes (%) (Auto) 3 L 12-44 % Monocytes (%) (Auto) 6 0-12 % Eosinophils (%) (Auto) 0 0-10 % Basophils (%) (Auto) 0 0-10 % Neutrophils # (Auto) 8.2 H 1.8-7.8 X 10^3 Lymphocytes # (Auto) 0.3 L 1.0-4.0 X 10^3 Monocytes # (Auto) 0.6 0.0-1.0 X 10^3 Eosinophils # (Auto) 0.0 0.0-0.3 10^3/uL Basophils # (Auto) 0.0 0.0-0.1 10^3/uL Erythrocyte Sedimentation Rate 76 H 0-30 MM/HR Prothrombin Time 14.5 12.2-14.7 SEC INR Comment 1.1 0.8-1.4 Activated Partial Thromboplast Time 40 H 24-35 SEC D-Dimer 1.42 H 0.00-0.49 UG/ML Sodium Level 135 135-145 MMOL/L Potassium Level 4.2 3.6-5.0 MMOL/L Chloride Level 103 98-107 MMOL/L Carbon Dioxide Level 22 21-32 MMOL/L Anion Gap 10 5-14 MMOL/L Blood Urea Nitrogen 38 H 7-18 MG/DL Creatinine 2.23 H 0.60-1.30 MG/DL Estimat Glomerular Filtration Rate 28 BUN/Creatinine Ratio 17 Glucose Level 163 H 70-105 MG/DL Lactic Acid Level 1.43 0.84 0.50-2.00 MMOL/L Calcium Level 8.7 8.5-10.1 MG/DL Corrected Calcium 9.0 8.5-10.1 MG/DL Magnesium Level 2.1 1.6-2.4 MG/DL Total Bilirubin 1.4 H 0.1-1.0 MG/DL Aspartate Amino Transf (AST/SGOT) 22 5-34 U/L Alanine Aminotransferase (ALT/SGPT) 14 0-55 U/L Alkaline Phosphatase 60 40-136 U/L Lactate Dehydrogenase 200 125-220 U/L Total Creatine Kinase 227 H 30-200 U/L Creatine Kinase MB 1.9 <6.6 NG/ML Myoglobin 353.5 H 10.0-92.0 NG/ML Troponin I 0.190 H <0.028 NG/ML C-Reactive Protein High Sensitivity 15.84 H 0.00-0.50 MG/DL B-Type Natriuretic Peptide 924.7 H <100.0 PG/ML Total Protein 6.8 6.4-8.2 GM/DL Albumin 3.6 3.2-4.5 GM/DL Procalcitonin 0.40 H <0.10 NG/ML TSH [place] Testing 2.46 0.35-4.94 UIU/ML Coronavirus (COVID-19)(PCR) Negative Negative Glucometer 161 H 70-110 MG/DL Test 01/13/20 02:45 01/13/20 12:02 Range/Units White Blood Count 8.1 4.3-11.0 10^3/uL Red Blood Count 3.90 L 4.35-5.85 10^6/uL Hemoglobin 11.7 L 13.3-17.7 G/DL Hematocrit 35 L 40-54 % Mean Corpuscular Volume 91 80-99 FL Mean Corpuscular Hemoglobin 30 25-34 PG Mean Corpuscular Hemoglobin Concent 33 32-36 G/DL Red Cell Distribution Width 14.9 H 10.0-14.5 % Platelet Count 149 130-400 10^3/uL Mean Platelet Volume 11.3 H 7.4-10.4 FL Neutrophils (%) (Auto) 87 H 42-75 % Lymphocytes (%) (Auto) 7 L 12-44 % Monocytes (%) (Auto) 7 0-12 % Eosinophils (%) (Auto) 0 0-10 % Basophils (%) (Auto) 0 0-10 % Neutrophils # (Auto) 7.0 1.8-7.8 X 10^3 Lymphocytes # (Auto) 0.5 L 1.0-4.0 X 10^3 Monocytes # (Auto) 0.6 0.0-1.0 X 10^3 Eosinophils # (Auto) 0.0 0.0-0.3 10^3/uL Basophils # (Auto) 0.0 0.0-0.1 10^3/uL Sodium Level 136 135-145 MMOL/L Potassium Level 3.9 3.6-5.0 MMOL/L Chloride Level 105 98-107 MMOL/L Carbon Dioxide Level 19 L 21-32 MMOL/L Anion Gap 12 5-14 MMOL/L Blood Urea Nitrogen 36 H 7-18 MG/DL Creatinine 1.86 H 0.60-1.30 MG/DL Estimat Glomerular Filtration Rate 35 BUN/Creatinine Ratio 19 Glucose Level 128 H 70-105 MG/DL Calcium Level 8.4 L 8.5-10.1 MG/DL Corrected Calcium 9.0 8.5-10.1 MG/DL Phosphorus Level 3.7 2.3-4.7 MG/DL Magnesium Level 2.1 1.6-2.4 MG/DL Total Bilirubin 1.1 H 0.1-1.0 MG/DL Aspartate Amino Transf (AST/SGOT) 24 5-34 U/L Alanine Aminotransferase (ALT/SGPT) 15 0-55 U/L Alkaline Phosphatase 55 40-136 U/L Total Protein 6.3 L 6.4-8.2 GM/DL Albumin 3.3 3.2-4.5 GM/DL Glucometer 118 H 70-110 MG/DL Physical Exam Physical Exam Vital Signs Vital Signs - First Documented 01/12/20 18:58 Temp 39.3 Pulse 60 Resp 20 B/P (MAP) 99/46 (63) Pulse Ox 97 O2 Delivery Room Air Capillary Refill : Less Than 3 Seconds Height, Weight, BMI Height: '" Weight: lbs. oz. kg; 31.28 BMI Method: General Appearance: No Apparent Distress, WD/WN Eyes: Bilateral Eye PERRL HEENT: Moist Mucous Membranes, Other (hard of hearing) Neck: Normal Inspection, Supple Respiratory: Lungs Clear, No Accessory Muscle Use, No Respiratory Distress Cardiovascular: Regular Rate, Rhythm, Systolic Murmur, Irregularly Irregular Gastrointestinal: Normal Bowel Sounds, Soft Back: No CVA Tenderness Extremity: Normal Capillary Refill, No Calf Tenderness, No Pedal Edema Neurologic/Psychiatric: Alert; No Facial Droop; Other (oriented to person and situation) Skin: Normal Color, Warm/Dry A/P-Cardiology Admission Diagnosis Pneumonia Type II NV Sepsis Acute renal failure Assessment/Plan Pneumonia, shortness of breath, improving. Receiving antibiotic. 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 Mild elevation in troponin level. Probably secondary to hypoxemia and sepsis. Type II NV. Continue to monitor the trend. History of bovine aortic valve replacement. Planning to evaluate echocardiogram Acute on chronic renal failure. Continue with hydration and monitor renal function Hypertension, monitor blood pressure Questionable history of second-degree [place] 1 block. Asymptomatic at this time. COVID exposure, tested negative, being repeated Clinical Quality Measures DVT/VTE Risk/Contraindication: Risk Factor Score Per Nursin RFS Level Per Nursing on Admit: 3=High WHIT ESCALANTE MD Jan 13, 2020 10:46
[2020-01-13] MEDS ORDERED: VANCOMYCIN INJECTION 0.1 MG in NS (IVPB) 250 ML IV SCH (11:00)
--- NOTE | 2020-01-13 11:44 | NUR ---
pt is unable to perform IS and Aerobika due to hearing loss. Addendum: 01/13/20 at 1145 by MITCHELL CASTLE RT Amended: Links added.
--- NOTE | 2020-01-13 11:56 | NUR ---
PHARMACY TO DOSE VANCOMYCIN: PATIENT WEIGHT 101.7KG, SCr 1.86, CrCl 35.9, BMI 31.3; E-ICU ORDER: PATIENT RECEIVED 1G LOADING DOSE (INSTEAD OF 2G) 01/10 @ 0230; MAINTENANCE DOSE 15MG/KG X 101.7KG = 1525.5 ~ 1500MG Q24H STARTING 01/13 @ 0230; VANCOMYCIN TROUGH DUE 01/15 @ 0130; IF TROUGH IS <20, HOLD DOSE AND CONTACT PHARMACY FOR ADJUSTMENTS.
[2020-01-13] MEDS ORDERED: cefTRIAXone 1,000 MG/SWFI 10 ML IV PUSH IV SCH ×2 (21:00)
[2020-01-13 23:24] LABS: BILIRUBIN,URINE NEGATIVE (NEGATIVE); CLARITY,URINE CLEAR; COLOR,URINE YELLOW; GLUCOSE, URINE (UA) NEGATIVE (NEGATIVE); KETONES,URINE 1+ (NEGATIVE); LEUKOCYTE ESTERASE ,URINE NEGATIVE (NEGATIVE); NITRITE,URINE NEGATIVE (NEGATIVE); PH,URINE 5.5 (5-9); PROTEIN,URINE 1+ (NEGATIVE)
[2020-01-13 23:46] LABS: BACTERIA,URINE TRACE /HPF; RBC,URINE 0-2 /HPF; SQUAMOUS EPITHELIAL CELL,UR RARE /HPF; WBC,URINE 0-2 /HPF
[2020-01-13 23:47] LABS: GRANULAR CASTS,URINE 0-2 /LPF
[2020-01-13] MEDS ORDERED: RX-ALBUTEROL INHALER 8 GM HFA (VENTOLIN) IH ONE (23:48)
[2020-01-14] VITALS (29 sets, daily range): BP systolic 104–160; BP diastolic 52–150
[2020-01-14] MEDS: RT-ALBUTEROL INHALER HFA (VENTOLIN HFA) 8 GM IH PRN
[2020-01-14 00:30] LABS: ABG OXYGEN SATURATION 93 % (94-100); ABG PCO2 31 MMHG (35-45); ABG PO2 66 MMHG (79-93); ABG TCO2 19.8 MMOL/L (21.0-31.0)
--- NOTE | 2020-01-14 00:30 | NUR ---
TeleICU doctor notified of patient's increased work of breathing as well as increase in oxygen needs. Order for Bipap given. Patient refused to keep bipap on, patient is very [place] and has to be redirected to keep on. ABG done and discussed with teleICU doctor. Patient placed on high flow NC, as patient keeps it on. Will continue to monitor.
[2020-01-14 00:32] LABS: ALLENS TEST POSITIVE; INSPIRED O2 7; PATIENT TEMP 37.1; VENTILATOR NO
[2020-01-14] MEDS: ACETAMINOPHEN 500 MG TAB (TYLENOL) PO PRN (00:45)
[2020-01-14] MEDS ORDERED: HALOPERIDOL 5 MG/ML (HALDOL) VIAL ONE (01:45)
[2020-01-14] MEDS: VANCOMYCIN 1500 MG/NS 500 ML IVPB IV SCH ×2 (01:59)
[2020-01-14] MEDS ORDERED: HALOPERIDOL 5 MG/ML (HALDOL) VIAL IV ONE (02:00)
--- NOTE | 2020-01-14 02:00 | NUR ---
Patient consistently taking oxygen off and sats drop to 85%. TeleICU notified and order received for 5mg haldol given one time. Will continue to monitor.
[2020-01-14 03:49] LABS: BASOPHILS % (AUTO) 0 % (0-10); EOSINOPHILS % (AUTO) 0 % (0-10); HEMATOCRIT 33 % (40-54); HEMOGLOBIN 10.9 G/DL (13.3-17.7); LYMPHOCYTES # (AUTO) 0.5 X 10^3 (1.0-4.0); LYMPHOCYTES % (AUTO) 5 % (12-44); MEAN CORPUSCULAR HEMOGLOBIN 30 PG (25-34); MEAN CORPUSCULAR HGB CONC 33 G/DL (32-36); MEAN CORPUSCULAR VOLUME 90 FL (80-99); MEAN PLATELET VOLUME 11.9 FL (7.4-10.4); MONOCYTES % (AUTO) 11 % (0-12); NEUTROPHILS % (AUTO) 84 % (42-75); PLATELET COUNT 159 10^3/uL (130-400); WHITE BLOOD COUNT 9.4 10^3/uL (4.3-11.0)
[2020-01-14 04:08] LABS: POTASSIUM 3.9 MMOL/L (3.6-5.0)
[2020-01-14 04:10] LABS: CALCIUM 8.3 MG/DL (8.5-10.1)
[2020-01-14 04:14] LABS: CREATININE SERUM 1.55 MG/DL (0.60-1.30); PHOSPHORUS 3.1 MG/DL (2.3-4.7)
[2020-01-14 04:16] LABS: MAGNESIUM 2.1 MG/DL (1.6-2.4)
[2020-01-14] MEDS: MAGNESIUM 1 GM/100 ML IVPB 100 ML IV SCH (04:59)
[2020-01-14] MEDS: KCL 20 MEQ TAB (K-DUR) PO SCH (04:59)
[2020-01-14] MEDS: POTASSIUM CL 10MEQ/50ML IVPB 50 ML IV SCH (04:59)
[2020-01-14] MEDS: 1/2 NS IV SOLUTION 1,000 ML IV SCH ×3 (05:00→16:03)
--- NOTE | 2020-01-14 05:08 | Pulmonary Consultation ---
History of Present Illness History of Present Illness Date Seen by Provider: Jan 14, 2020 Time Seen by Provider: 05:01 Date of Admission Reason for Visit: Shortness of breath History of Present Illness 84 years old with history of aortic valve replacement using porcine valve, and DM patient presented to secondary to progressive weakness, low grade fevers, and not feeling well for the past few days. Pt was dx with left lower lobe pneumonia in ED and has had exposure indirectly to COVID 19 patients, he was noted to have elevated BNP and minimal elevation in troponin. Allergies and Home Medications Allergies Coded Allergies: No Known Drug Allergies (Unverified , 07/13/17) Home Medications Aspirin 81 Mg Tablet.dr, 81 MG PO BID, (Reported) Lactobac Cmb #3/Fos/Pantethine 1 Each Capsule, 1 EACH PO HS, (Reported) Lorazepam 0.5 Mg Tablet, 0.25 MG PO TID PRN for ANXIETY Prescribed by: NATHANIEL OLIVA on 01/28/20 09 Melatonin 5 Mg Tablet, 5 MG PO HS Prescribed by: NATHANIEL OLIVA on 01/28/20 0904 Mirabegron 50 Mg Tab.er.24h, 50 MG PO HS, (Reported) Omeprazole 20 Mg Capsule.dr, 20 MG PO DAILY, (Reported) Tamsulosin HCl 0.4 Mg Cap, 0.4 MG PO HS, (Reported) Past Fviuwiv-Txjnyf-Kzclyh Hx Past Med/Social Hx: Reviewed and Corrections made Patient Social History Alcohol Use: Rarely Uses Recreational Drug Use: No Smoking Status: Former Smoker Type Used: Cigarettes 2nd Hand Smoke Exposure: No Recent Foreign Travel: No Contact w/Someone Who Travel: No Recent Infectious Disease Expo: No Recent Hopitalizations: No Physical Abuse: No Sexual Abuse: No Mistreated: No Fear: No Immunizations Up To Date Tetanus Booster (TDap): Unknown Past Medical History Surgeries: Yes (BOVINE AORTIC VALVE REPLACEMENT; CARDIAC CATHS; APPY; KNEE REPLACEMENT) Appendectomy, Joint Replacement, Orthopedic, Valve Replacement Respiratory: No Cardiac: Yes (MILD [place] -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;CARDIAC CATHS-NO INTERVENTION;BOVINE AORTIC RAKEL) High Cholesterol, Hypertension, Valvular Heart Disease Neurological: Yes (POSSIBLE TIA YEARS AGO) Genitourinary: Yes Prostate Problems Gastrointestinal: No Musculoskeletal: Yes (KNEE REPLACEMENT) Arthritis Endocrine: Yes Diabetes, 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) Hearing Impairment: Hard of Hearing Cancer: No Psychosocial: No Integumentary: No Blood Disorders: No Family Medical History Reviewed Nursing Family Hx No Pertinent Family Hx Review of Systems Time Seen by Provider: 05:13 Constitutional: Fever, Chills, Sweats, Weakness, Malaise, Other Eyes: No: Pain, Vision change, Conjunctivae inflammation, Eyelid inflammation, Other, Redness ENT: Nose congestion; No: Ear pain, Ear discharge, Nose pain, Nose discharge, Mouth pain, Mouth swelling, Throat pain, Throat swelling, Other Respiratory: Cough, Dry, Shortness of breath, SOB with excertion, Wheezing Cardiovascular: No: Chest Pain, Palpitations, Orthopnea, Paroxysmal Noc. Dyspnea, Edema, Lt Headedness, Other Gastrointestinal: No: Nausea, Vomiting, Abdominal Pain, Diarrhea, Constipation, Melena, Hematochezia, Other Sepsis Event Evaluation Height, Weight, BMI Height: '" Weight: lbs. oz. kg; 31.28 BMI Method: Exam Exam Vital Signs Date Time Temp Pulse Resp B/P (MAP) Pulse Ox O2 Delivery O2 Flow Rate FiO2 01/14/20 02:00 79 23 110/78 (89) 95 High Flow N/C 6.00 01/14/20 01:15 37.0 01/14/20 01:00 89 01/14/20 01:00 89 146/65 (92) 89 High Flow N/C 6.00 01/14/20 00:45 37.9 01/14/20 00:04 91 21 146/99 (115) 94 NIV Bilevel 30.00 01/14/20 00:01 90 34 95 30.00 01/14/20 00:00 89 15 95 NIV Bilevel 30.00 01/14/20 00:00 94 High Flow N/C 6.00 01/13/20 23:15 37.7 01/13/20 23:00 110 15 162/80 (107) Nasal Cannula 3.00 01/13/20 22:38 96 19 92 Nasal Cannula 3.00 01/13/20 22:00 96 15 145/76 (99) 92 Nasal Cannula 2.00 01/13/20 21:00 98 145/56 (85) 89 Nasal Cannula 2.00 01/13/20 20:11 36.2 95 24 145/76 (99) 91 Nasal Cannula 2.00 01/13/20 20:00 91 Nasal Cannula 2.00 01/13/20 19:00 84 37 161/97 (118) 92 Nasal Cannula 2.00 01/13/20 19:00 84 01/13/20 18:00 90 40 102/95 (97) 92 Room Air 01/13/20 18:00 Nasal Cannula 2.00 01/13/20 17:00 89 22 156/86 (109) 90 Room Air 01/13/20 16:21 37.0 01/13/20 16:00 86 36 109/75 (86) 90 Room Air 01/13/20 15:00 74 27 133/76 (95) 92 Room Air 01/13/20 14:00 68 28 140/59 (86) 94 Room Air 01/13/20 13:17 76 01/13/20 13:00 81 10 137/62 (87) 93 Room Air 01/13/20 12:09 37.4 01/13/20 12:00 73 9 137/62 (87) 93 Room Air 01/13/20 11:00 60 29 130/69 (89) 97 Room Air 01/13/20 10:00 56 17 127/75 (92) 92 Room Air 01/13/20 09:00 58 14 124/55 (78) Room Air 01/13/20 09:00 37.2 01/13/20 08:00 76 29 119/59 (79) 95 Room Air 01/13/20 07:03 117 01/13/20 07:00 66 27 134/96 (109) 91 Room Air 01/13/20 06:00 89/65 (73) 96 Room Air I & O 01/14/20 07:00 Intake Total 1050 ml Output Total 50 ml Balance 1000 ml Height & Weight Height: '" Weight: lbs. oz. kg; 31.28 BMI Method: General Appearance: No Apparent Distress, WD/WN HEENT: Moist Mucous Membranes, Other (hard of hearing) Neck: Normal Inspection, Supple Respiratory: Lungs Clear, No Accessory Muscle Use, No Respiratory Distress Cardiovascular: Regular Rate, Rhythm, Systolic Murmur, Irregularly Irregular Capillary Refill: Less Than 3 Seconds Peripheral Pulses: 2+ Dorsalis Pedis (R), 2+ Left Dors-Pedis (L) Extremity: Normal Capillary Refill, No Calf Tenderness, No Pedal Edema Neurologic/Psychiatric: Alert; No Facial Droop; Other (oriented to person and situation) Skin: Normal Color, Warm/Dry Results Lab Laboratory Tests 01/12/20 19:10 01/13/20 02:45 01/14/20 01:55 Assessment/Plan Assessment/Plan Acute respiratory failure Severe sepsis with bacteremia probably strep pneumonia -Repeat COVID testing -Mckeon cultures pending -had indirect COVID exposure and is febrile and lymphopenic. Maintain in isolation until results back NSTEMI -Cardiology following RUSTAM -IVF -Monitor Bovine Aortic valve Replacement NIDDMII MYKE JACKSON DO Jan 14, 2020 05:08
[2020-01-14] MEDS: inSUlin ASPART (NovoLOG) 1 UNIT/0.01 ML (CHARGE PER UNIT) SC SCH ×4 (06:15→21:00)
[2020-01-14] MEDS: DEXAMETHASONE 4 MG/ML SDV (DECADRON) IV SCH ×3 (06:26→21:00)
[2020-01-14] MEDS: FLUTICASONE 110 MCG INHALER (FLOVENT) 12 GM INH SCH ×2 (07:14→19:12)
[2020-01-14] MEDS: ALBUTEROL/IPRATROP (COMBIVENT RESPIMAT) 4 GM INHALER IH SCH ×5 (07:14→21:45)
[2020-01-14] MEDS: AZITHROMYCIN 250 MG TAB (ZITHROMAX) PO SCH (08:08)
[2020-01-14] MEDS: CEFEPIME INJECTION 2,000 MG in WATER (STERILE) FOR INJECTION 20 ML IV SCH (08:08)
--- NOTE | 2020-01-14 08:28 | Progress Note ---
Subjective Subjective Date Seen by Provider: Jan 14, 2020 Time Seen by Provider: 08:20 PER STAFF, PT HAS BEEN UNABLE TO LEAVE ON HIS OXYGEN, BIPAP, AND JUST CLIMBED OVER THE RAILING TO GET UP TO USE THE RESTROOM AT THE SIDE OF HIS BED. HE USED THE TRASH CAN TO HAVE A BOWEL MOVEMENT EARLIER TODAY. THE PATIENT IS HARD OF HEARING AND I HAD TO WRITE DOWN MY QUESTIONS. HE DENIES CHEST PAIN, SHORTNESS OF BREATH, ABDOMINAL PAIN, OR ANY CONCERNS OTHER THAN HE WANTS TO GO HOME. Review of Systems ROS Unable to Obtain: limited due to difficulty hearing General: No Chills; Fatigue HEENT: No Dysphasia, No Sore Throat Pulmonary: No Dyspnea, No Cough Cardiovascular: No: Chest Pain, Palpitations Gastrointestinal: No: Nausea, Abdominal Pain Genitourinary: Frequency Musculoskeletal: No: back pain Neurological: Weakness, Confusion All Other Systems Reviewed All Other Systems Reviewed: Yes Objective Exam Vital Signs Vital Signs - First Documented 01/12/20 18:58 Temp 39.3 Pulse 60 Resp 20 B/P (MAP) 99/46 (63) Pulse Ox 97 O2 Delivery Room Air Capillary Refill : Less Than 3 Seconds General Appearance: No Apparent Distress, WD/WN Eyes: Bilateral Eye PERRL HEENT: Moist Mucous Membranes, Other (hard of hearing) Neck: Normal Inspection, Supple Respiratory: Accessory Muscle Use, Decreased Breath Sounds, Other (CONVERSATIONAL DYSPNEA) Cardiovascular: Regular Rate, Rhythm, Systolic Murmur, Irregularly Irregular Gastrointestinal: Normal Bowel Sounds, Soft, Other (ROUNDED, PROTUBERANT, USING ABD MUSCLES TO BREATHE) Back: No CVA Tenderness Extremity: Normal Capillary Refill, No Calf Tenderness, No Pedal Edema Neurologic/Psychiatric: Alert; No Facial Droop; Other (ORIENTED TO PERSON AND PLACE, NOT TIME) Skin: Normal Color, Warm/Dry Results Lab Laboratory Tests 01/13/20 12:02: Glucometer 118H 01/13/20 16:21: Glucometer 126H 01/13/20 19:56: Glucometer 112H 01/13/20 23:10: Urine Color YELLOW, Urine Clarity CLEAR, Urine pH 5.5, Urine Specific [place] >=1.030, Urine Protein 1+H, Urine Glucose (UA) NEGATIVE, Urine Ketones 1+H, Urine Nitrite NEGATIVE, Urine Bilirubin NEGATIVE, Urine Urobilinogen 1.0, Urine Leukocyte Esterase NEGATIVE, Urine RBC (Auto) 1+H, Urine RBC 0-2, Urine WBC 0-2, Urine Squamous Epithelial Cells RARE, Urine Crystals NONE, Urine Bacteria TRACE, Urine Casts PRESENT, Urine Granular Casts 0-2H, Urine Mucus SMALLH, Urine Culture Indicated NO 01/14/20 00:10: Blood Gas Puncture Site LEFT BRACHIAL, Blood Gas Patient Temperature 37.1, Arterial Blood pH 7.40, Arterial Blood Partial Pressure CO2 31L, Arterial Blood Partial Pressure O2 66L, Arterial Blood HCO3 19L, Arterial Blood Total CO2 19.8L , Arterial Blood Oxygen Saturation 93L, Arterial Blood Base Excess -5.0L, Ramses Test POSITIVE, Blood Gas Ventilator Setting NO, Blood Gas Inspired Oxygen 7 01/14/20 01:55: White Blood Count 9.4, Red Blood Count 3.63L, Hemoglobin 10.9L, Hematocrit 33L, Mean Corpuscular Volume 90, Mean Corpuscular Hemoglobin 30, Mean Corpuscular Hemoglobin Concent 33, Red Cell Distribution Width 15.0H, Platelet Count 159, Mean Platelet Volume 11.9H, Neutrophils (%) (Auto) 84H, Lymphocytes (%) (Auto) 5L, Monocytes (%) (Auto) 11, Eosinophils (%) (Auto) 0, Basophils (%) (Auto) 0, Neutrophils # (Auto) 8.0H, Lymphocytes # (Auto) 0.5L, Monocytes # (Auto) 1.0, Eosinophils # (Auto) 0.0, Basophils # (Auto) 0.0, Sodium Level 135, Potassium Level 3.9, Chloride Level 105, Carbon Dioxide Level 18L, Anion Gap 12, Blood Urea Nitrogen 37H, Creatinine 1.55H, Estimat Glomerular Filtration Rate 43, BUN/Creatinine Ratio 24, Glucose Level 110H, Calcium Level 8.3L, Phosphorus Level 3.1, Magnesium Level 2.1, Troponin I 1.073*H 01/14/20 05:30: Microbiology 01/12/20 MRSA Screen - Final, Complete MRSA not isolated 01/12/20 Blood Culture - Preliminary, Resulted Gram Positive Cocci in Chains Assessment/Plan Assessment/Plan Admission Dx RESPIRATORY DISTRESS LYMPHOCYTOSIS ACUTE ON CHRONIC RENAL INSUFFICIENCY ELEVATED TROPONIN ANEMIA HYPERTENSION DIABETES MELLITUS HARD OF HEARING RESPIRATORY DISTRESS - DISCUSSED WITH PT AND DR. CORREIA - PT TO BE PLACED ON BIPAP WITH PRECEDEX FOR MILD SEDATION SINCE PT IS HAVING INCREASE IN ACCESSORY MUSCLE USE WITH INCREASED WORK OF BREATHING, WILL MONITOR SYMPTOMS CLOSELY. - USE OF PRECEDEX DUE TO PT'S INABILITY TO LEAVE BIPAP IN PLACE AND PT PUTTING HIMSELF AT RISK BY CLIMBING OVER BED RAILS. LYMPHOCYTOSIS - SLIGHTLY IMPROVED - CONTINUE TO MONITOR ACUTE ON CHRONIC RENAL INSUFFICIENCY - SUPPORTIVE CARE WITH FLUIDS - RENAL FUNCTION IMPROVED. ELEVATED TROPONIN - TROPONIN - INCREASING - CONTINUE WITH SUPPORTIVE CARE, WAITING ON COVID TESTING PRIOR TO FURTHER WORK-UP. ANEMIA - CONTINUE TO MONITOR. HYPERTENSION - STABLE - CONTINUE TO MONITOR DIABETES MELLITUS - PT ON SLIDING SCALE HARD OF HEARING - COULD USE WHITE BOARD IN ROOM FOR PATIENT TO HELP FACILITATE COMMUNICATION. COVID-19 STATUS PENDING - INITIAL TEST NEGATIVE, PATIENT'S ANTIBODY TEST PENDING -REPEAT ANTIGEN PENDING WELL. Clinical Quality Measures DVT/VTE Risk/Contraindication: Risk Factor Score Per Nursin RFS Level Per Nursing on Admit: 3=High NATHANIEL OLIVA MD Jan 14, 2020 08:28
--- NOTE | 2020-01-14 09:02 | Physical Therapy Progress Note ---
Therapy Progress Note Per Dr. Barrientos, hold off on seeing this patient for PT/OT this date. Re check tomorrow. VANITA MIRANDA PT Jan 14, 2020 09:02
[2020-01-14] MEDS ORDERED: DexMEDEtomidine 250 ML DRIP 250 ML IV SCH (09:15)
[2020-01-14] MEDS ORDERED: DexMEDEtomidine 250 ML DRIP 250 ML IV ONE (09:27)
--- NOTE | 2020-01-14 10:04 | Cardiology Progress Note ---
Subjective Date Seen by Provider: Jan 14, 2020 Time Seen by Provider: 09:59 Subjective/Events-last exam Patient is laying down in bed on BiPAP, has been having shortness of breath, denied any chest pain Review of Systems General: No Chills, No Night Sweats; Fatigue; No Malaise, No Appetite, No Other HEENT: No Head Aches, No Visual Changes, No Eye Pain, No Ear Pain, No Dysphasia, No Sinus Congestion, No Post Nasal Drip, No Sore Throat, No Other Pulmonary: Dyspnea; No Cough, No Pleuritic Chest Pain, No Other Cardiovascular: Chest Pain; No: Palpitations, Orthopnea, Paroxysmal Noc. Dyspnea, Edema, Lt Headedness, Other Focused Exam Lactate Level 01/12/20 19:10: Lactic Acid Level 1.43 01/12/20 23:10: Lactic Acid Level 0.84 Time of Focused Exam: 20:00 Objective-Cardiology Exam Last Set of Vital Signs Vital Signs 01/14/20 01/14/20 01/14/20 01/14/20 08:13 08:45 09:00 09:37 Temp 35.2 Pulse 73 Resp 28 B/P (MAP) 142/95 Pulse Ox 97 O2 Delivery NIV Bilevel O2 Flow Rate 30.00 FiO2 30 Capillary Refill : Less Than 3 Seconds I&O Intake and Output 01/14/20 00:00 Intake Total 1100 ml Balance 1100 ml Intake Oral 100 ml IV Total 1000 ml # Voids 6 # Urine Diapers 2 # Bowel Movements 5 General: Alert, Oriented X3, Cooperative HEENT: Atraumatic, PERRLA Neck: Supple, No JVD, No Thyromegaly Lungs: Normal Air Movement, Other (Bilateral rhonchi) Heart: Regular Rate, Normal S1, Normal S2, No Murmurs Abdomen: Normal Bowel Sounds, Soft, No Tenderness, No Hepatosplenomegaly, No Masses Extremities: No Clubbing, No Cyanosis, No Edema, Normal Pulses, No Tenderness/Swelling Skin: No Rashes, No Breakdown, No Significant Lesion Neuro: Normal Speech, Normal Tone, Sensation Intact Psych/Mental Status: Mood NL Results Lab Laboratory Tests 01/14/20 01:55 A/P-Cardiology Admission Diagnosis Pneumonia Type II NH Sepsis Acute renal failure Assessment/Plan Acute respiratory failure on BiPAP at this time due to decompensation Pneumonia, Streptococcus in the blood culture, managed by primary care team Sepsis, managed by primary care team and editor dictionary. Mild elevation in troponin level, worsening today, patient has worsening respiratory failure and shortness of breath no active chest pain. Continue with conservative management for now and monitor. History of bovine aortic valve replacement, gram-positive in chains that his blood culture, on empiric treatment for endocarditis and once COVID is ruled out we will need to do MARCY Acute on chronic renal failure. Continue with hydration and monitor renal function Hypertension, monitor blood pressure Questionable history of second-degree Mobitz 1 block. Asymptomatic at this time. COVID exposure, tested negative, being repeated, I will evaluate IgG Clinical Quality Measures DVT/VTE Risk/Contraindication: Risk Factor Score Per Nursin RFS Level Per Nursing on Admit: 3=High WHIT ESCALANTE MD Jan 14, 2020 10:04
--- NOTE | 2020-01-14 12:00 | NUR ---
PT UP TO BSC TO URINATE, BECAME SOB WHILE ON BIPAP, BREATHING LABORED AND PT BECOMING MORE ANXIOUS. PRECEDEX INFUSING-SEE IV SPREADSHEET. O2 SATS DURING THIS TIME HIGH 80'S-LOW 90'S. PT ASSISTED BACK TO BED, THIS RN INQUIRED ABOUT [facility] CATHETER D/T RESP STATUS WHILE GETTING UP. PT REPORTS URINARY SURGERY IN PAST AND DOES NOT KNOW IF HE CAN HAVE CATHETER. THIS RN SPOKE TO PT'S AND DAUGHTER, PER FAMILY, SURGERY WAS DONE AT W/ DR BRUCE. THIS RN FAXED [facility] AND LEFT MESSAGE W/ 'S OFFICE FOR CALL BACK. DURING THIS TIME PT WAS RESTING IN BED W/ BIPAP ON, HEART RATE DECREASED TO LOW 40'S AND PT WENT INTO A FLUTTER. PRECEDEX PUT ON STANDBY. BOTH DR OLIVA AND DR ESCALANTE NOTIFIED. PT CONVERTED BACK TO SB WHILE ON THE PHONE W/ DR ESCALANTE. NO FURTHER ORDERS RECEIVED.
--- NOTE | 2020-01-14 12:57 | Physician Query Clarification ---
"Physician Query-General Query to Physician: The medical record reflects the following clinical scenario: History/Risk factors: Pneumonia, Clinical Findings: Pos blood cultures, elevated temp and WBC, RUSTAM, NSTEMI Treatment: IVF and IV ABX, ICU monitoring Question: Do you agree with the impression of Severe Sepsis per Dr. Arvizu? If you agree, please document in Progress Notes or Discharge Summary. 1. Yes; will document Severe Sepsis in the Progress Notes 2. No; will continue to document Lymphocytosis in the Progress Notes 3. Other; will document explanation of clinical findings 4. Clinically undetermined; no explanation for clinical findings Please remember a lack of response to the above will prompt a phone page by CDI/coding staff. In responding to this query, please exercise your independent professional judgment. The purpose of this communication is to more accurately reflect the complexity of your patients condition. The fact that a question is asked does not imply that any particular answer is desired or expected. Thank you for timely response to this clarification. Melvina Gonzalez, MSN, RN RN Specialist-Clinical Doc Improvement CD -Health Info Mgmt Operations [address] [facility] t: [phone] | f: [phone] If you are unable to reach me at my extension, I may be working from home. Satish oakes contact me at [phone] PHYSICIAN RESPONSE: Based on the clinical findings in the record, please respond to the query above on this document as an addendum. Physician Response: Physician Response yes If you have questions please contact: Leaf Coverer: Ext: Thank you for your time and cooperation. Clinical Soils Analyst/Leaf Coverer This is a permanent part of the medical record MELVINA GONZALEZ Jan 14, 2020 12:57 NATHANIEL OLIVA MD Jan 18, 2020 12:39"
[2020-01-14] MEDS ORDERED: PIOG45TA65 PO (15:06)
[2020-01-14] MEDS ORDERED: MIRA50TA PO (15:06)
[2020-01-14] MEDS ORDERED: TMSL.4C PO (15:06)
[2020-01-14] MEDS ORDERED: OMEP20CA18 PO (15:06)
[2020-01-14] MEDS ORDERED: PRAV10TA PO (15:06)
[2020-01-14] MEDS ORDERED: ZOLP6.2525 PO (15:06)
[2020-01-14] MEDS ORDERED: VITA10007 PO (15:08)
[2020-01-14] MEDS ORDERED: CHOL10007 PO (15:08)
[2020-01-14] MEDS ORDERED: MULT-1136 PO (15:08)
[2020-01-14] MEDS ORDERED: LACT1CAP57 PO (15:08)
[2020-01-14] MEDS ORDERED: ASPI-983 PO (15:08)
--- NOTE | 2020-01-14 15:09 | NUR ---
SPOKE WITH THE PATIENTS JOAO AND WENT THRU THE EXT MED HISTORY TO COMPLETE THE MED REC ALL PRESCRIPTIONS ARE ON THE EXT MED HISTORY AND THE PTS SETS THEM UP IN A MED ORGANIZER- ALL INFORMATION SHE GAVE ME MATCHED THE EXT MED HISTORY OTC MEDS: VIT D3 MTV VIT E ASPIRIN 81 PROBIOTIC
--- NOTE | 2020-01-14 21:30 | NUR ---
Spoke with Dr. Barrientos and informed her that COVID-19 and Antibody test both came back negative. Received the okay to take pt out of airborne precautions and place in standard precautions at this time.
[2020-01-15] VITALS (26 sets, daily range): BP systolic 96–160; BP diastolic 60–91
[2020-01-15] MEDS: ALBUTEROL/IPRATROP (COMBIVENT RESPIMAT) 4 GM INHALER IH SCH ×6 (02:05→21:40)
[2020-01-15] MEDS: VANCOMYCIN 1500 MG/NS 500 ML IVPB IV SCH ×2 (02:30)
[2020-01-15] MEDS: 1/2 NS IV SOLUTION 1,000 ML IV SCH ×2 (02:54→14:55)
[2020-01-15 02:58] LABS: BASOPHILS % (AUTO) 0 % (0-10); EOSINOPHILS % (AUTO) 0 % (0-10); HEMATOCRIT 31 % (40-54); HEMOGLOBIN 10.2 G/DL (13.3-17.7); LYMPHOCYTES # (AUTO) 0.3 X 10^3 (1.0-4.0); LYMPHOCYTES % (AUTO) 4 % (12-44); MEAN CORPUSCULAR HEMOGLOBIN 29 PG (25-34); MEAN CORPUSCULAR HGB CONC 33 G/DL (32-36); MEAN CORPUSCULAR VOLUME 89 FL (80-99); MEAN PLATELET VOLUME 11.1 FL (7.4-10.4); MONOCYTES # (AUTO) 0.4 X 10^3 (0.0-1.0); MONOCYTES % (AUTO) 5 % (0-12); NEUTROPHILS # (AUTO) 6.4 X 10^3 (1.8-7.8); NEUTROPHILS % (AUTO) 90 % (42-75); PLATELET COUNT 160 10^3/uL (130-400); RED CELL DISTRIBUTION WIDTH 15.1 % (10.0-14.5); WHITE BLOOD COUNT 7.1 10^3/uL (4.3-11.0)
[2020-01-15 02:59] LABS: ABG BASE EXCESS -4.3 MMOL/L (-2.5-2.5); ABG OXYGEN SATURATION 98 % (94-100); ABG PCO2 33 MMHG (35-45); ABG PH 7.39 (7.37-7.43); ABG PO2 106 MMHG (79-93); ABG TCO2 20.9 MMOL/L (21.0-31.0)
[2020-01-15 03:00] LABS: ALLENS TEST POSITIVE; INSPIRED O2 30; PATIENT TEMP 36.7; VENTILATOR NO
[2020-01-15 03:10] LABS: POTASSIUM 4.3 MMOL/L (3.6-5.0)
[2020-01-15 03:11] LABS: CALCIUM 8.7 MG/DL (8.5-10.1)
[2020-01-15 03:15] LABS: PHOSPHORUS 3.4 MG/DL (2.3-4.7)
[2020-01-15 03:16] LABS: CREATININE SERUM 1.17 MG/DL (0.60-1.30)
[2020-01-15 03:18] LABS: MAGNESIUM 2.5 MG/DL (1.6-2.4)
[2020-01-15] MEDS: inSUlin ASPART (NovoLOG) 1 UNIT/0.01 ML (CHARGE PER UNIT) SC SCH ×4 (03:21→20:25)
[2020-01-15] MEDS: MAGNESIUM 1 GM/100 ML IVPB 100 ML IV SCH (03:21)
[2020-01-15] MEDS: POTASSIUM CL 10MEQ/50ML IVPB 50 ML IV SCH (03:21)
[2020-01-15] MEDS: KCL 20 MEQ TAB (K-DUR) PO SCH (03:21)
[2020-01-15 03:31] LABS: BAND NEUTROPHILS 6 %; LYMPHOCYTES % (MANUAL) 4 %; MONOCYTES % (MANUAL) 3 %; NEUTROPHILS % (MANUAL) 87 %
[2020-01-15 03:32] LABS: ANISOCYTOSIS SLIGHT
[2020-01-15] MEDS: DEXAMETHASONE 4 MG/ML SDV (DECADRON) IV SCH ×3 (05:58→20:25)
[2020-01-15] MEDS: FLUTICASONE 110 MCG INHALER (FLOVENT) 12 GM INH SCH ×2 (06:55→18:08)
--- NOTE | 2020-01-15 07:29 | Cardiology Progress Note ---
Subjective Date Seen by Provider: Jan 15, 2020 Time Seen by Provider: 07:27 Subjective/Events-last exam Patient is sitting in bed, eating breakfast, feeling better, on Vapotherm. Review of Systems General: No Chills, No Night Sweats, No Fatigue, No Malaise, No Appetite, No Other HEENT: No Head Aches, No Visual Changes, No Eye Pain, No Ear Pain, No Dysphasia, No Sinus Congestion, No Post Nasal Drip, No Sore Throat, No Other Pulmonary: Dyspnea; No Cough, No Pleuritic Chest Pain, No Other Cardiovascular: No: Chest Pain, Palpitations, Orthopnea, Paroxysmal Noc. Dyspnea, Edema, Lt Headedness, Other Focused Exam Lactate Level 01/12/20 19:10: Lactic Acid Level 1.43 01/12/20 23:10: Lactic Acid Level 0.84 Time of Focused Exam: 20:00 Objective-Cardiology Exam Last Set of Vital Signs Vital Signs 01/15/20 01/15/20 01/15/20 01/15/20 02:56 06:00 06:56 07:11 Temp 36.7 Pulse 63 Resp 24 B/P (MAP) 119/82 (94) Pulse Ox 97 O2 Delivery Vapotherm O2 Flow Rate 20.00 FiO2 35 Capillary Refill : Less Than 3 Seconds I&O Intake and Output 01/15/20 00:00 Intake Total 2685 ml Output Total 253 ml Balance 2432 ml Intake Oral 150 ml IV Total 2535 ml Output Urine Total 250 ml Stool Total 3 ml # Voids 7 # Urine Diapers 1 General: Alert, Oriented X3, Cooperative HEENT: Atraumatic, PERRLA Neck: Supple, No JVD, No Thyromegaly Lungs: Normal Air Movement, Other (Bilateral rhonchi) Heart: Regular Rate, Normal S1, Normal S2, No Murmurs Abdomen: Normal Bowel Sounds, Soft, No Tenderness, No Hepatosplenomegaly, No Masses Extremities: No Clubbing, No Cyanosis, No Edema, Normal Pulses, No Tenderness/Swelling Skin: No Rashes, No Breakdown, No Significant Lesion Neuro: Normal Speech, Normal Tone, Sensation Intact Psych/Mental Status: Mood NL Results Lab Laboratory Tests 01/15/20 02:48 A/P-Cardiology Admission Diagnosis Pneumonia Type II ID Sepsis Acute renal failure Assessment/Plan Status post respiratory failure, currently on Vapotherm, feeling better. Gram-positive bacteremia, on empiric antibiotic, I will evaluate MARCY tomorrow Pneumonia, Streptococcus in the blood culture, managed by primary care team Sepsis, managed by primary care team and teachers aide. Mild elevation in troponin level, worsening today, patient has worsening respiratory failure and shortness of breath no active chest pain. Type II ID, secondary to respiratory failure. Continue with conservative management History of bovine aortic valve replacement, gram-positive in chains that his blood culture, on empiric treatment for endocarditis, planning for MARCY tomorrow Acute on chronic renal failure. Continue with hydration and monitor renal function Hypertension, monitor blood pressure Questionable history of second-degree Mobitz 1 block. Asymptomatic at this time. COVID exposure, tested negative Clinical Quality Measures DVT/VTE Risk/Contraindication: Risk Factor Score Per Nursin RFS Level Per Nursing on Admit: 3=High WHIT ESCALANTE MD Jan 15, 2020 07:29
--- NOTE | 2020-01-15 08:10 | Pulmonary Progress Note ---
Subjective Date Seen by a Provider: Jan 15, 2020 Time Seen by a Provider: 08:07 Sepsis Event Evaluation Height, Weight, BMI Height: '" Weight: lbs. oz. kg; 31.28 BMI Method: Focused Exam Lactate Level 01/12/20 19:10: Lactic Acid Level 1.43 01/12/20 23:10: Lactic Acid Level 0.84 Time of Focused Exam: 20:00 Exam Exam Vital Signs Date Time Temp Pulse Resp B/P (MAP) Pulse Ox O2 Delivery O2 Flow Rate FiO2 01/15/20 07:11 97 Vapotherm 20.00 35 01/15/20 07:00 71 24 134/78 (96) 93 NIV Bilevel 30.00 01/15/20 06:56 63 24 94 30.00 01/15/20 06:00 56 24 119/82 (94) 97 NIV Bilevel 30.00 01/15/20 05:00 61 26 124/71 (88) 96 NIV Bilevel 30.00 01/15/20 04:00 70 38 139/79 (99) 97 NIV Bilevel 30.00 01/15/20 04:00 NIV Bilevel 30 01/15/20 03:00 64 22 124/79 (94) 95 NIV Bilevel 30.00 01/15/20 02:56 36.7 NIV Bilevel 30.00 01/15/20 02:05 64 25 95 30.00 01/15/20 02:00 53 23 117/82 (94) 94 NIV Bilevel 30.00 01/15/20 01:00 55 25 117/60 (79) 94 NIV Bilevel 30.00 01/15/20 01:00 55 01/15/20 00:00 67 23 100/73 (82) 97 NIV Bilevel 30.00 01/14/20 23:34 NIV Bilevel 30 01/14/20 23:33 36.2 NIV Bilevel 30.00 01/14/20 23:00 56 19 113/62 (79) 94 NIV Bilevel 30.00 01/14/20 22:08 61 24 122/63 (82) 93 NIV Bilevel 30.00 01/14/20 21:45 68 25 95 30.00 01/14/20 21:03 37.0 NIV Bilevel 30.00 01/14/20 21:00 79 16 137/68 (91) 95 NIV Bilevel 30.00 01/14/20 21:00 NIV Bilevel 30 01/14/20 20:00 59 24 122/66 (84) 96 NIV Bilevel 30.00 01/14/20 19:13 66 26 96 30.00 01/14/20 19:00 67 32 144/92 (109) 94 NIV Bilevel 30.00 01/14/20 19:00 67 01/14/20 18:00 79 25 129/85 (100) 95 NIV Bilevel 30.00 01/14/20 17:00 79 25 121/71 (88) 96 NIV Bilevel 30.00 01/14/20 16:13 NIV Bilevel 30 01/14/20 16:00 56 24 120/73 (89) 94 NIV Bilevel 30.00 01/14/20 15:06 36.6 01/14/20 15:04 54 23 96 30.00 01/14/20 15:00 69 22 113/52 (72) 95 NIV Bilevel 30.00 01/14/20 14:00 77 36 127/84 (98) 96 NIV Bilevel 30.00 01/14/20 13:00 54 27 104/68 (80) 93 NIV Bilevel 30.00 01/14/20 12:53 35.3 01/14/20 12:34 41 01/14/20 12:00 59 25 104/65 (78) 96 NIV Bilevel 30.00 01/14/20 12:00 NIV Bilevel 30 01/14/20 11:00 60 23 124/76 (92) 95 NIV Bilevel 30.00 01/14/20 10:58 61 22 95 30.00 01/14/20 10:00 64 22 132/75 (94) 96 NIV Bilevel 30.00 01/14/20 09:37 73 142/95 01/14/20 09:00 85 28 142/95 (111) 97 NIV Bilevel 30.00 01/14/20 08:52 NIV Bilevel 30.00 01/14/20 08:45 NIV Bilevel 30 01/14/20 08:13 35.2 I & O 01/15/20 07:00 Intake Total 2190 ml Output Total 452 ml Balance 1738 ml Height & Weight Height: '" Weight: lbs. oz. kg; 31.28 BMI Method: General Appearance: No Apparent Distress, WD/WN HEENT: Moist Mucous Membranes, Other (hard of hearing) Neck: Normal Inspection, Supple Respiratory: Accessory Muscle Use, Decreased Breath Sounds, Other (CONV ERSATIONAL DYSPNEA) Cardiovascular: Regular Rate, Rhythm, Systolic Murmur, Irregularly Irregular Capillary Refill: Less Than 3 Seconds Peripheral Pulses: 2+ Dorsalis Pedis (R), 2+ Left Dors-Pedis (L) Extremity: Normal Capillary Refill, No Calf Tenderness, No Pedal Edema Neurologic/Psychiatric: Alert; No Facial Droop; Other (ORIENTED TO PERSON AND PLACE, NOT TIME) Skin: Normal Color, Warm/Dry Results Lab Laboratory Tests 01/14/20 01:55 01/15/20 02:48 Assessment/Plan Assessment/Plan Acute respiratory failure Severe sepsis with bacteremia with suspected endocarditis -Vanco and rocephin -Repeat COVID testing- Negative -Mckeon cultures pending NSTEMI -Cardiology following RUSTAM -IVF -Monitor 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
--- NOTE | 2020-01-15 08:19 | Progress Note ---
Subjective Subjective Date Seen by Provider: Jan 15, 2020 Time Seen by Provider: 08:10 PT ALERT, LYING IN BED, DTR AT BEDSIDE. PATIENT IS ON VAPOTHERM HE DENIES FEELING SHORT OF BREATH, HAVING CHEST PAIN, HAVING ABDOMINAL PAIN. HOWEVER UPON LITTLE MOVEMENT TO SIT UP IN BED, PT OBVIOUSLY QUITE SHORT OF BREATH AND RED IN THE FACE. Review of Systems General: No Chills, No Night Sweats; Fatigue; No Malaise, No Appetite, No Other HEENT: No Head Aches, No Visual Changes, No Eye Pain, No Ear Pain, No Dysphasia, No Sinus Congestion, No Post Nasal Drip, No Sore Throat; Other (HARD OF HEARING) Pulmonary: Dyspnea; No Cough, No Pleuritic Chest Pain, No Other Cardiovascular: No: Chest Pain, Palpitations, Orthopnea, Edema Gastrointestinal: No: Nausea, Abdominal Pain, Diarrhea, Constipation Genitourinary: Frequency Musculoskeletal: No: back pain Neurological: Weakness, Confusion All Other Systems Reviewed All Other Systems Reviewed: Yes Objective Exam Vital Signs Vital Signs - First Documented 01/12/20 01/14/20 18:58 08:45 Temp 39.3 Pulse 60 Resp 20 B/P (MAP) 99/46 (63) Pulse Ox 97 O2 Delivery Room Air FiO2 30 Capillary Refill : Less Than 3 Seconds General Appearance: No Apparent Distress, WD/WN Eyes: Bilateral Eye PERRL HEENT: Moist Mucous Membranes, Other (hard of hearing) Neck: Normal Inspection, Supple Respiratory: Accessory Muscle Use, Decreased Breath Sounds, Other (CONVERSATIONAL DYSPNEA) Cardiovascular: Regular Rate, Rhythm, Systolic Murmur, Irregularly Irregular Gastrointestinal: Normal Bowel Sounds, Soft, Other (ROUNDED, PROTUBERANT, USING ABD MUSCLES TO BREATHE) Back: No CVA Tenderness Extremity: Normal Capillary Refill, No Calf Tenderness, No Pedal Edema Neurologic/Psychiatric: Alert, Oriented x3, Normal Mood/Affect; No Facial Droop Skin: Normal Color, Warm/Dry Results Lab Laboratory Tests 01/14/20 11:24: Glucometer 133H 01/14/20 14:58: Glucometer 163H 01/14/20 20:52: Glucometer 114H 01/15/20 02:48: White Blood Count 7.1, Red Blood Count 3.47L, Hemoglobin 10.2L, Hematocrit 31L, Mean Corpuscular Volume 89, Mean Corpuscular Hemoglobin 29, Mean Corpuscular H emoglobin Concent 33, Red Cell Distribution Width 15.1H, Platelet Count 160, Mean Platelet Volume 11.1H, Neutrophils (%) (Auto) 90H, Lymphocytes (%) (Auto) 4L, Monocytes (%) (Auto) 5, Eosinophils (%) (Auto) 0, Basophils (%) (Auto) 0, Neutrophils # (Auto) 6.4, Lymphocytes # (Auto) 0.3L, Monocytes # (Auto) 0.4, Eosinophils # (Auto) 0.0, Basophils # (Auto) 0.0, Neutrophils % (Manual) 87, Lymphocytes % (Manual) 4, Monocytes % (Manual) 3, Band Neutrophils 6, Anisocytosis SLIGHT, Blood Gas Puncture Site RIGHT RADIAL, Blood Gas Patient Temperature 36.7, Arterial Blood pH 7.39, Arterial Blood Partial Pressure CO2 33L, Arterial Blood Partial Pressure O2 106H, Arterial Blood HCO3 20L, Arterial Blood Total CO2 20.9L, Arterial Blood Oxygen Saturation 98, Arterial Blood Base Excess -4.3L, Ramses Test POSITIVE, Blood Gas Ventilator Setting NO, Blood Gas Inspired Oxygen 30, Sodium Level 135, Potassium Level 4.3, Chloride Level 107, C arbon Dioxide Level 17L, Anion Gap 11, Blood Urea Nitrogen 34H, Creatinine 1.17, Estimat Glomerular Filtration Rate 59, BUN/Creatinine Ratio 29, Glucose Level 126H, Calcium Level 8.7, Phosphorus Level 3.4, Magnesium Level 2.5H Microbiology 01/12/20 Blood Culture - Preliminary, Resulted No growth 01/12/20 MRSA Screen - Final, Complete MRSA not isolated Assessment/Plan Assessment/Plan Admission Dx RESPIRATORY DISTRESS LYMPHOCYTOSIS PNEUMONIA ACUTE ON CHRONIC RENAL INSUFFICIENCY POSSIBLE ENDOCARDITIS ELEVATED TROPONIN ANEMIA HYPERTENSION DIABETES MELLITUS HARD OF HEARING RESPIRATORY DISTRESS WITH PNEUMONIA ON CXR - ON IV ANTIBIOTICS, CONTINUE WITH SERIAL CHEST XRAYS - IMPROVED SLIGHTLY- PT NOW ON VAPOTHERM, BUT GETS QUITE SHORT OF BREATH AND IS IN SLIGHT DISTRESS WITH ANY MOVEMENT IN BED LYMPHOCYTOSIS - SLIGHTLY IMPROVED - CONTINUE TO MONITOR POSSIBLE ENDOCARDITIS - ON BROAD SPECTRUM ANTIBIOTICS - MARCY PLANNED FOR TOMORROW ACUTE ON CHRONIC RENAL INSUFFICIENCY - SUPPORTIVE CARE WITH FLUIDS - RENAL FUNCTION IMPROVED. ELEVATED TROPONIN - DEFER TO CARDIOLOGY - WORK-UP PENDING. ANEMIA - CONTINUE TO MONITOR. HYPERTENSION - STABLE - CONTINUE TO MONITOR DIABETES MELLITUS - PT ON SLIDING SCALE HARD OF HEARING - COULD USE WHITE BOARD IN ROOM FOR PATIENT TO HELP FACILITATE COMMUNICATION. COVID-19 STATUS PENDING - INITIAL TEST NEGATIVE, ANTIBODY TEST AND REPEAT ANTIGEN NEGATIVE. Admission Dx RESPIRATORY DISTRESS LYMPHOCYTOSIS ACUTE ON CHRONIC RENAL INSUFFICIENCY ELEVATED TROPONIN ANEMIA HYPERTENSION DIABETES MELLITUS HARD OF HEARING RESPIRATORY DISTRESS - DISCUSSED WITH PT AND DR. CORREIA - PT TO BE PLACED ON BIPAP WITH PRECEDEX FOR MILD SEDATION SINCE PT IS HAVING INCREASE IN ACCESSORY MUSCLE USE WITH INCREASED WORK OF BREATHING, WILL MONITOR SYMPTOMS CLOSELY. - USE OF PRECEDEX DUE TO PT'S INABILITY TO LEAVE BIPAP IN PLACE AND PT PUTTING HIMSELF AT RISK BY CLIMBING OVER BED RAILS. LYMPHOCYTOSIS - SLIGHTLY IMPROVED - CONTINUE TO MONITOR ACUTE ON CHRONIC RENAL INSUFFICIENCY - SUPPORTIVE CARE WITH FLUIDS - RENAL FUNCTION IMPROVED. ELEVATED TROPONIN - TROPONIN - INCREASING - CONTINUE WITH SUPPORTIVE CARE, WAITING ON COVID TESTING PRIOR TO FURTHER WORK-UP. ANEMIA - CONTINUE TO MONITOR. HYPERTENSION - STABLE - CONTINUE TO MONITOR DIABETES MELLITUS - PT ON SLIDING SCALE HARD OF HEARING - COULD USE WHITE BOARD IN ROOM FOR PATIENT TO HELP FACILITATE COMMUNICATION. COVID-19 STATUS PENDING - INITIAL TEST NEGATIVE, PATIENT'S ANTIBODY TEST PENDING -REPEAT ANTIGEN PENDING WELL. Clinical Quality Measures Admission Status Admission Dx RESPIRATORY DISTRESS LYMPHOCYTOSIS ACUTE ON CHRONIC RENAL INSUFFICIENCY ELEVATED TROPONIN ANEMIA HYPERTENSION DIABETES MELLITUS HARD OF HEARING RESPIRATORY DISTRESS - DISCUSSED WITH PT AND DR. CORREIA - PT TO BE PLACED ON BIPAP WITH PRECEDEX FOR MILD SEDATION SINCE PT IS HAVING INCREASE IN ACCESSORY MUSCLE USE WITH INCREASED WORK OF BREATHING, WILL MONITOR SYMPTOMS CLOSELY. - USE OF PRECEDEX DUE TO PT'S INABILITY TO LEAVE BIPAP IN PLACE AND PT PUTTING HIMSELF AT RISK BY CLIMBING OVER BED RAILS. LYMPHOCYTOSIS - SLIGHTLY IMPROVED - CONTINUE TO MONITOR ACUTE ON CHRONIC RENAL INSUFFICIENCY - SUPPORTIVE CARE WITH FLUIDS - RENAL FUNCTION IMPROVED. ELEVATED TROPONIN - TROPONIN - INCREASING - CONTINUE WITH SUPPORTIVE CARE, WAITING ON COVID TESTING PRIOR TO FURTHER WORK-UP. ANEMIA - CONTINUE TO MONITOR. HYPERTENSION - STABLE - CONTINUE TO MONITOR DIABETES MELLITUS - PT ON SLIDING SCALE HARD OF HEARING - COULD USE WHITE BOARD IN ROOM FOR PATIENT TO HELP FACILITATE COMMUNICATION. COVID-19 STATUS PENDING - INITIAL TEST NEGATIVE, PATIENT'S ANTIBODY TEST PENDING -REPEAT ANTIGEN PENDING WELL. DVT/VTE Risk/Contraindication: Risk Factor Score Per Nursin RFS Level Per Nursing on Admit: 3=High NATHANIEL OLIVA MD Jan 15, 2020 08:19
--- NOTE | 2020-01-15 08:30 | Diagnostic Imaging Report ---
INDICATION: Sepsis, pneumonia. TECHNIQUE: Single view chest 3:18 AM. CORRELATION STUDY: 01/12/2020 FINDINGS: Poststernotomy changes. Cardiac enlargement and prominent mediastinum are stable. Some degree of vascular congestion appears slightly increased from prior study. Additionally, there is increased density over the lateral left mid lung field. Continued infiltrate left lung base. Question minimal developing infiltrate right perihilar region. IMPRESSION: 1. Cardiac enlargement with pulmonary vascular congestion appearing slightly increased from prior study. 2. Continued infiltrate left lung base with new area of density at the lateral left mid lung field perhaps developing infiltrate in the right perihilar region as well. Follow-up imaging recommended. Dictated by: Dictated on workstation # [id number]
[2020-01-15] MEDS ORDERED: CEFEPIME INJECTION 2,000 MG in WATER (STERILE) FOR INJECTION 20 ML IV SCH (09:00)
[2020-01-15] MEDS: AZITHROMYCIN 250 MG TAB (ZITHROMAX) PO SCH (09:04)
--- NOTE | 2020-01-15 10:19 | Physical Therapy Evaluation ---
PT Evaluation-General Medical Diagnosis Admission Date Jan 12, 2020 at 20:30 Medical Diagnosis: pneumonia/sepsis Onset Date: Jan 12, 2020 Therapy Diagnosis Therapy Diagnosis: debility/weakness Precautions Precautions/Isolations: Airborne Isolation, Fall Prevention Weight Bear Status Right Lower Extremity: Right Weight Bearing/Tolerated Left Lower Extremity: Left Weight Bearing/Tolerated Referral Physician: Rishabh Reason for Referral: Evaluation/Treatment Medical History Pertinent Medical History: DM, HTN, [place], Renal Insufficiency Current History ER secondary to fell backward secondary to dizziness/cough/fever Reviewed History: Yes Social History Home: Single Level Current Living Status: Spouse Prior Prior Level of Function SCALE: Activities may be completed with or without assistive devices. 4-Cjxlbdjqzf-pcxiple completes the activity by him/herself with no assistance from a helper. 5-Set-up or Clean-up Assistance-helper sets up or cleans up; patient completes activity. [place] assists only prior to or following the activity. 4-Supervision or Touching Assistance-helper provides verbal cues and/or touching/steadying and/or contact guard assistance as patient completes activity. Assistance may be provided throughout the activity or intermittently. 3-Partial/Moderate Assistance-helper does LESS THAN HALF the effort. [place] lifts, holds or supports trunk or limbs, but provides less than half the effort. 2-Substantial/Maximal Assistance-helper does MORE THAN HALF the effort. [place] lifts or holds trunk or limbs and provides more than half the effort. 2-Rgyaustal-rjqtdy does ALL the effort. Patient does none of the effort to complete the activity. Or, the assistance of 2 or more helpers is required for the patient to complete the activity. If activity was not attempted, code reason: 7-Patient Refused. 9-Not Applicable-not attempted and the patient did not perform the activity before the current illness, exacerbation or injury. 10-Not Attempted due to Environmental Limitations-(lack of equipment, weather restraints, etc.). 88-Not Attempted due to Medical Conditions or Safety Concerns. Bed Mobility: 6 Transfers (B,C,W/C): 6 Gait: 6 Indoor Mobility (Ambulation): Independent Stairs: Independent Prior Devices Use: None PT Evaluation-Current Subjective Patient is in bed and agrees to PT. Currently on Vapotherm 35%/20L. Pain Numeric Pain Scale: 0-No Pain Location: No Pain Reported Objective Patient Orientation: Normal For Age Attachments: Oxygen (Vapotherm) ROM/Strength ROM Lower Extremities bilateral LE WFL Strength Lower Extremities 4-/5 grossly bilateral LE Integumentary/Posture Integumentary refer to nursing notes Bladder Incontinence: Yes Posture WFL Neuromuscular (Tone, Coordination, Reflexes) grossly intact Sensory Vision: Functional Hearing: Impaired Sensation Right Lower Extremit: Impaired Sensation Left Lower Extremity: Impaired Transfers Roll Left to Right (QC): 5 Sit to Lying (QC): 5 Lying to Sitting/Side of Bed(Q: 5 Patient is able to perform bed mobility without difficulty, however, he does hold his breath and SAO2 decrease to 80% on Vapotherm. Patient sat EOB x 5 min independently for recovery. Unable to perform sit to stand due to decreased SAO2 at rest. Gait Does the Patient Walk?: No and Walking Goal IS indicated Balance Sitting Static: Normal Sitting Dynamic: Normal Assessment/Needs 84 y.o. male, with severe pulmonary issued, will benefit from skilled PT to address pulmonary function with functional mobility and strengthening. From a PT standpoint, patient would benefit from ARU when medically stable and able to participate off of vapotherm. Rehab Potential: Guarded PT Custodial Goals Sales Correspondent Goals PT Custodial Goals Time Frame: Feb 02, 2020 Roll Left & Right (QC): 6 Sit to Lying (QC): 6 Lying-Sitting on Side/Bed(QC): 6 Sit to Stand (QC): 6 Chair/Zrw-oq-Mqpyx Xfer(QC): 6 Toilet Transfer (QC): 6 Does the Patient Walk: Yes Walk 10 feet (QC): 6 Walk 50ft with 2 Turns (QC): 6 Walk 150 ft (QC): 6 Walking 10ft on Uneven Surface: 6 1 Step (curb) (QC): 6 4 Steps (QC): 6 PT Plan Problem List Problem List: Activity Tolerance, Gait, Transfer, Other (pulmonary function) Treatment/Plan Treatment Plan: Continue Plan of Care Treatment Plan: Bed Mobility, Education, Functional Activity Jean, Functional Strength, Gait, Safety, Therapeutic Exercise, Transfers Treatment Duration: Feb 02, 2020 Frequency: 6 times per week Estimated Hrs Per Day: .25 hour per day Patient and/or Family Agrees t: Yes Discharge Recommendations Therapy Discharge Recommendati: Other, See Comments (ARU) Time/GCodes Time In: 930 Time Out: 947 Total Billed Treatment Time: 17 Total Billed Treatment 1 visit [facility] 17 min TORI OLIVAS PT Jan 15, 2020 10:19
[2020-01-15] MEDS: cefTRIAXone FOR IV USE 2,000 MG in WATER (STERILE) FOR INJECTION 20 ML IV SCH (14:58)
--- NOTE | 2020-01-15 15:06 | Occupational Therapy Eval ---
OT Evaluation-General/PLF Medical Diagnosis Admission Date Jan 12, 2020 at 20:30 Medical Diagnosis: pneumonia/sepsis Onset Date: Jan 12, 2020 Therapy Diagnosis Therapy Diagnosis: Weakness Precautions Precautions/Isolations: Airborne Isolation, Fall Prevention Weight Bear Status Weight Bearing Restriction: Weight Bearing/Tolerated Referral Physician: Rishabh Referral Reason: Activity Tolerance, Self Care, Evaluation/Treatment, Strengthening/ROM Medical History Pertinent Medical History: DM, HTN, [place], Renal Insufficiency Additional Medical History Joint replacement, valve replacement. Current History Pt. came to hospital with pneumonia, ARF. COVID test negative. Reviewed History: Yes Social History Home: Single Level Current Living Status: Spouse ADL-Prior Level of Function SCALE: Activities may be completed with or without assistive devices. 7-Ohimhnhwaa-ybpibfm completes the activity by him/herself with no assistance from a helper. 5-Set-up or Clean-up Assistance-helper sets up or cleans up; patient completes activity. [place] assists only prior to or following the activity. 4-Supervision or Touching Assistance-helper provides verbal cues and/or touching/steadying and/or contact guard assistance as patient completes activity. Assistance may be provided throughout the activity or intermittently. 3-Partial/Moderate Assistance-helper does LESS THAN HALF the effort. [place] lifts, holds or supports trunk or limbs, but provides less than half the effort. 2-Substantial/Maximal Assistance-helper does MORE THAN HALF the effort. [place] lifts or holds trunk or limbs and provides more than half the effort. 1-Xyohmvnzj-ncrjej does ALL the effort. Patient does none of the effort to complete the activity. Or, the assistance of 2 or more helpers is required for the patient to complete the activity. If activity was not attempted, code reason: 7-Patient Refused. 9-Not Applicable-not attempted and the patient did not perform the activity before the current illness, exacerbation or injury. 10-Not Attempted due to Environmental Limitations-(lack of equipment, weather restraints, etc.). 88-Not Attempted due to Medical Conditions or Safety Concerns. ADL PLOF Comments Pt. is able to indicate that he is independent at home. Self Care: Unknown Functional Cognition: Unknown OT Current Status Subjective No pain reported. Pt. very [place]. Difficult to communicate. Current Upper Extremity ROM WFL ADL-Treatment Toileting Hygiene (QC): 4 (CGA) Other Treatments Pt. on BSC when OT entered room. Pt. able to indicate that he was done using toilet. Pt. handed wipes and is able to cleanse rear marvin area after BM. OT attempts to communicate with pt, but this is very difficult due to hearing. Pt. requests to transfer back to bed. Pt. stands with CGA, and transfers to bed. Pt. able to transfer into bed with SBA. All needs met. Education OT Patient Education: Correct positioning, Modified ADL techniques, Progress toward Goal/Update tx plan, Purpose of tx/functional activities, Reviewed precautions, Rehab process, Transfer techniques Teaching Recipient: Patient Teaching Methods: Demonstration, Discussion Response to Teaching: Verbalize Understanding, Return Demonstration OT Locate Technician Goals Intermediate Goals Time Frame: Jan 22, 2020 Eating (QC): 6 Oral Hygiene (QC): 6 Toileting Hygiene (QC): 6 Shower/Bathe Self (QC): 4 Upper Body Dressing (QC): 5 Lower Body Dressing (QC): 5 On/Off Footwear (QC): 5 Additional Goals: 1-Demonstrate ADL Tasks, 2-Verbalize Understanding, 3- ImproveStrength/Jean 1=Demonstrate adherence to instructed precautions during ADL tasks. 2=Patient will verbalize/demonstrate understanding of assistive de vices/modifications for ADL. 3=Patient will improve strength/tolerance for activity to enable patient to perform ADL's. OT Education/Plan Problem List/Assessment Assessment: Decreased Activ Tolerance, Impaired I ADL's, Impaired Self-Care Skills Discharge Recommendations Plan/Recommendations: Continue POC Treatment Plan/Plan of Care Treatment,Training & Education: Yes Patient would benefit from OT for education, treatment and training to promote independence in ADL's, mobility, safety and/or upper extremity function for A DL's. Plan of Care: ADL Retraining, Functional Mobility Treatment Duration: Jan 22, 2020 Frequency: 5 times per week Estimated Hrs Per Day: .25 hour per day Agreement: Yes Rehab Potential: Fair Time/GCodes Start Time: 10:35 Stop Time: 10:50 Total Time Billed (hr/min): 15 Billed Treatment Time 1, AMANDA LEONE OT Jan 15, 2020 15:06
--- NOTE | 2020-01-15 18:00 | NUR ---
PT TAKING VITAL LINES OFF REGULAR. SOME VITALS NOT OBTAINED DUE TO PT REMOVING LINES.
--- NOTE | 2020-01-15 18:50 | NUR ---
DURING REPORT WITH NOC SHIFT RN, PATIENT HAD REMOVED ALL LINES ET MONITORING DEVICES ET WAS WALKING UP TO UNIT DESK WITH ALL BELONGINGS. THIS NURSE, ET 2 NOC SHIFT RN'S RAN TO PATIENT. PATIENT STATED HE WAS LEAVING. PATIENT WAS REORIENTED, PLACED IN WHEELCHAIR ET ASSISTED BACK TO ROOM. PATIENT CONFUSED, BUT IN GOOD SPIRITS, JOKING WITH NURSES. PATIENT WAS HOOKED BACK UP TO OXYGEN, IV, ET MONITORING. PATIENT WAS COMFORTABLE WITH NO COMPLAINTS AT THIS TIME. PATIENT WAS PLACED ON BIPAP, GIVEN WARM BLANKETS. BED ALARM SET.
--- NOTE | 2020-01-15 22:20 | NUR ---
PT HAS TAKEN OF BIPAP MULTIPLE TIMES. PT TRYING TO GET OUT OF BED AT THIS TIME. VAPOTHERM PLACED ON PT AT THIS TIME. PT APPEARS ANXIOUS, SOB AND WHEEZING. PRECEDEX STARTED AT THIS TIME. PCT AT BEDSIDE WHILE PT SITS ON SIDE OF BED TO CATCH HIS BREATH. WILL CONTINUE TO MONITOR PT.
[2020-01-15] MEDS: RT-ALBUTEROL INHALER HFA (VENTOLIN HFA) 8 GM IH PRN (23:00)
[2020-01-16] VITALS (23 sets, daily range): BP systolic 108–171; BP diastolic 65–114
[2020-01-16] MEDS: 1/2 NS IV SOLUTION 1,000 ML IV SCH (01:11)
[2020-01-16] MEDS ORDERED: TROUGH ORDER-PHARMACY XX NR (01:30)
[2020-01-16] MEDS: ALBUTEROL/IPRATROP (COMBIVENT RESPIMAT) 4 GM INHALER IH SCH ×5 (01:50→22:11)
[2020-01-16 03:39] LABS: BASOPHILS % (AUTO) 0 % (0-10); EOSINOPHILS % (AUTO) 0 % (0-10); HEMATOCRIT 31 % (40-54); HEMOGLOBIN 10.4 G/DL (13.3-17.7); LYMPHOCYTES # (AUTO) 0.4 X 10^3 (1.0-4.0); LYMPHOCYTES % (AUTO) 5 % (12-44); MEAN CORPUSCULAR HEMOGLOBIN 30 PG (25-34); MEAN CORPUSCULAR HGB CONC 33 G/DL (32-36); MEAN CORPUSCULAR VOLUME 90 FL (80-99); MEAN PLATELET VOLUME 11.3 FL (7.4-10.4); MONOCYTES # (AUTO) 0.4 X 10^3 (0.0-1.0); MONOCYTES % (AUTO) 5 % (0-12); NEUTROPHILS # (AUTO) 7.1 X 10^3 (1.8-7.8); NEUTROPHILS % (AUTO) 90 % (42-75); PLATELET COUNT 194 10^3/uL (130-400); RED CELL DISTRIBUTION WIDTH 14.9 % (10.0-14.5); WHITE BLOOD COUNT 7.9 10^3/uL (4.3-11.0)
[2020-01-16 03:55] LABS: POTASSIUM 4.5 MMOL/L (3.6-5.0)
[2020-01-16 03:56] LABS: CALCIUM 8.6 MG/DL (8.5-10.1)
[2020-01-16 04:00] LABS: PHOSPHORUS 3.6 MG/DL (2.3-4.7)
[2020-01-16 04:01] LABS: CREATININE SERUM 1.31 MG/DL (0.60-1.30)
[2020-01-16] MEDS: RT-ALBUTEROL INHALER HFA (VENTOLIN HFA) 8 GM IH PRN (04:02)
[2020-01-16 04:03] LABS: MAGNESIUM 2.8 MG/DL (1.6-2.4)
[2020-01-16] MEDS: inSUlin ASPART (NovoLOG) 1 UNIT/0.01 ML (CHARGE PER UNIT) SC SCH ×4 (04:40→20:48)
[2020-01-16] MEDS: MAGNESIUM 1 GM/100 ML IVPB 100 ML IV SCH (04:40)
[2020-01-16] MEDS: POTASSIUM CL 10MEQ/50ML IVPB 50 ML IV SCH (04:40)
[2020-01-16] MEDS: KCL 20 MEQ TAB (K-DUR) PO SCH (04:40)
[2020-01-16 04:58] LABS: ABG BASE EXCESS -4.4 MMOL/L (-2.5-2.5); ABG OXYGEN SATURATION 97 % (94-100); ABG PCO2 33 MMHG (35-45); ABG PH 7.39 (7.37-7.43); ABG PO2 95 MMHG (79-93); ABG TCO2 20.8 MMOL/L (21.0-31.0)
[2020-01-16 05:00] LABS: ALLENS TEST POSITIVE; INSPIRED O2 35; PATIENT TEMP 36.5; VENTILATOR NO
[2020-01-16] MEDS: DEXAMETHASONE 4 MG/ML SDV (DECADRON) IV SCH ×3 (05:17→19:45)
[2020-01-16] MEDS ORDERED: FUROSEMIDE 40 MG/4 ML INJ (LASIX) IVP NR (06:00)
--- NOTE | 2020-01-16 06:00 | Pulmonary Progress Note ---
Subjective Time Seen by a Provider: 05:55 Subjective/Events-last exam Pt is on Precedex. Plan is for MARCY today. Sepsis Event Evaluation Height, Weight, BMI Height: '" Weight: lbs. oz. kg; 31.28 BMI Method: Focused Exam Time of Focused Exam: 20:00 Exam Exam Vital Signs Date Time Temp Pulse Resp B/P (MAP) Pulse Ox O2 Delivery O2 Flow Rate FiO2 01/16/20 05:00 61 26 124/71 (88) 96 Vapotherm 25.00 35.00 01/16/20 04:03 Vapotherm 25.00 35 01/16/20 04:00 70 139/88 (105) 97 Vapotherm 25.00 35.00 01/16/20 03:55 36.3 01/16/20 03:47 60 116/80 (92) 97 Vapotherm 25.00 35.00 01/16/20 02:00 53 128/86 (100) 95 Vapotherm 25.00 35.00 01/16/20 01:50 97 Vapotherm 25.00 35 01/16/20 01:00 48 123/71 (88) 96 Vapotherm 25.00 35.00 01/16/20 01:00 48 01/16/20 00:00 50 118/76 (90) 96 Vapotherm 25.00 35.00 01/15/20 23:17 Vapotherm 25.00 35 01/15/20 23:14 36.0 01/15/20 23:00 70 130/76 (94) 95 Vapotherm 25.00 35.00 01/15/20 23:00 95 Vapotherm 20.00 35 01/15/20 22:50 64 96 Vapotherm 25.00 35.00 01/15/20 22:00 59 28 123/79 (94) 97 NIV Bilevel 30.00 01/15/20 21:23 57 27 98 30.00 01/15/20 21:00 70 19 126/72 (90) 94 NIV Bilevel 30.00 01/15/20 20:01 36.0 01/15/20 20:00 59 26 137/79 (98) 98 NIV Bilevel 30.00 01/15/20 20:00 NIV Bilevel 30 01/15/20 19:05 62 01/15/20 19:00 80 160/86 (110) NIV Bilevel 30.00 01/15/20 18:12 94 Vapotherm 20.00 35 01/15/20 18:08 94 Vapotherm 20.00 35 01/15/20 18:00 82 22 96/ 92 Vapotherm 20.00 35.00 01/15/20 17:00 81 11 6 Vapotherm 20.00 35.00 01/15/20 16:00 80 27 141/81 (101) 99 Vapotherm 20.00 35.00 01/15/20 15:49 35.6 01/15/20 15:08 Vapotherm 35 01/15/20 15:00 91 23 144/70 (94) 96 Vapotherm 20.00 35.00 01/15/20 14:19 94 Vapotherm 20.00 35 01/15/20 14:00 88 126/68 (87) 98 Vapotherm 20.00 35.00 01/15/20 13:00 69 136/86 (103) 98 NIV Bilevel 30.00 01/15/20 12:24 82 01/15/20 12:00 75 35 143/72 (95) 95 NIV Bilevel 30.00 01/15/20 12:00 35.8 01/15/20 12:00 Vapotherm 35 01/15/20 11:00 71 37 141/80 (100) 98 NIV Bilevel 30.00 01/15/20 10:55 96 Vapotherm 20.00 35 01/15/20 10:00 87 24 146/80 (102) 97 NIV Bilevel 30.00 01/15/20 09:45 01/15/20 09:00 88 32 92 NIV Bilevel 30.00 01/15/20 08:00 Vapotherm 35 01/15/20 08:00 36.2 01/15/20 08:00 75 27 121/66 (84) 93 NIV Bilevel 30.00 01/15/20 07:11 97 Vapotherm 20.00 35 01/15/20 07:00 71 24 134/78 (96) 93 NIV Bilevel 30.00 01/15/20 07:00 72 01/15/20 06:56 63 24 94 30.00 01/15/20 06:00 56 24 119/82 (94) 97 NIV Bilevel 30.00 I & O 01/16/20 07:00 Intake Total 2070 ml Output Total 300 ml Balance 1770 ml Height & Weight Height: '" Weight: lbs. oz. kg; 31.28 BMI Method: General Appearance: No Apparent Distress, WD/WN HEENT: Moist Mucous Membranes, Other (hard of hearing) Neck: Normal Inspection, Supple Respiratory: Accessory Muscle Use, Decreased Breath Sounds, Other (CONVERSATIONAL DYSPNEA) Cardiovascular: Regular Rate, Rhythm, Systolic Murmur, Irregularly Irregular Capillary Refill: Less Than 3 Seconds Peripheral Pulses: 2+ Dorsalis Pedis (R), 2+ Left Dors-Pedis (L) Extremity: Normal Capillary Refill, No Calf Tenderness, No Pedal Edema Neurologic/Psychiatric: Alert; No Facial Droop; Other (ORIENTED TO PERSON AND PLACE, NOT TIME) Skin: Normal Color, Warm/Dry Results Lab Laboratory Tests 01/15/20 02:48 01/16/20 03:05 Assessment/Plan Assessment/Plan Acute respiratory failure - improved -CXR shows improvement -ABG reviewed -Give Lasix x 1 and check BNP -Change IVF to LR at 30cc/hr Severe sepsis with Strep bacteremia with suspected endocarditis -rocephin 2gms IV daily, and azithromycin -Repeat COVID testing- Negative -Mckeon cultures pending Anxiety -Start Respiradol -Morphine PRN for air hunger -d/c precedex gtt Metabolic acidosis -Give 1 amp of bicarb secondary to air hunger NSTEMI -Cardiology following RUSTAM -IVF -Monitor Bovine Aortic valve Replacement -suspected endocarditis -MARCY is planned for today NIDDMII MYKE JACKSNO DO Jan 16, 2020 06:00
[2020-01-16] MEDS ORDERED: SODIUM BICARB 8.4% 50 MEQ/50 ML VIAL IV NR (06:15)
[2020-01-16] MEDS: LACTATED RINGERS 1,000 ML IV SCH (06:38)
--- NOTE | 2020-01-16 08:20 | Progress Note ---
Subjective Subjective Date Seen by Provider: Jan 16, 2020 Time Seen by Provider: 08:10 PT ALERT, LYING IN BED,PATIENT IS ON VAPOTHERM. HE DENIES CONCERNS AT THIS TIME. HE DENIES CHEST PAIN, SHORTNESS OF BREATH, ABDOMINAL PAIN, NAUSEA, GI UPSET. Review of Systems General: No Chills, No Night Sweats; Fatigue; No Malaise, No Appetite, No Other HEENT: No Head Aches, No Visual Changes, No Eye Pain, No Ear Pain, No Dysphasia, No Sinus Congestion, No Post Nasal Drip, No Sore Throat; Other (HARD OF HEARING) Pulmonary: Dyspnea; No Cough, No Pleuritic Chest Pain, No Other Cardiovascular: No: Chest Pain, Palpitations, Orthopnea, Edema Gastrointestinal: No: Nausea, Abdominal Pain, Diarrhea, Constipation Genitourinary: Frequency Musculoskeletal: No: back pain Neurological: Weakness, Confusion All Other Systems Reviewed All Other Systems Reviewed: Yes Objective Exam Vital Signs Vital Signs - First Documented 01/12/20 01/14/20 18:58 08:45 Temp 39.3 Pulse 60 Resp 20 B/P (MAP) 99/46 (63) Pulse Ox 97 O2 Delivery Room Air FiO2 30 Capillary Refill : Less Than 3 Seconds General Appearance: No Apparent Distress, WD/WN Eyes: Bilateral Eye PERRL HEENT: Moist Mucous Membranes, Other (hard of hearing) Neck: Normal Inspection, Supple Respiratory: Accessory Muscle Use, Decreased Breath Sounds, Other (CONVERSATIONAL DYSPNEA) Cardiovascular: Regular Rate, Rhythm, Systolic Murmur, Irregularly Irregular Gastrointestinal: Normal Bowel Sounds, Soft, Other (ROUNDED, PROTUBERANT, USING ABD MUSCLES TO BREATHE) Back: No CVA Tenderness Extremity: Normal Capillary Refill, No Calf Tenderness, No Pedal Edema Neurologic/Psychiatric: Alert, Oriented x3, Normal Mood/Affect; No Facial Droop Skin: Normal Color, Warm/Dry Results Lab Laboratory Tests 01/15/20 10:50: Glucometer 136H 01/15/20 15:12: Glucometer 119H 01/15/20 20:24: Glucometer 133H 01/16/20 03:05: White Blood Count 7.9, Red Blood Count 3.49L, Hemoglobin 10.4L, Hematocrit 31L, Mean Corpuscular Volume 90, Mean Corpuscular Hemoglobin 30, Mean Corpuscular Hemoglobin Concent 33, Red Cell Distribution Width 14.9H, Platelet Count 194, Mean Platelet Volume 11.3H, Neutrophils (%) (Auto) 90H, Lymphocytes (%) (Auto) 5L, Monocytes (%) (Auto) 5, Eosinophils (%) (Auto) 0, Basophils (%) (Auto) 0, Neutrophils # (Auto) 7.1, Lymphocytes # (Auto) 0.4L, Monocytes # (Auto) 0.4, Eosinophils # (Auto) 0.0, Basophils # (Auto) 0.0, Sodium Level 137, Potassium Level 4.5, Chloride Level 107, Carbon Dioxide Level 20L, Anion Gap 10, Blood Urea Nitrogen 41H, Creatinine 1.31H, Estimat Glomerular Filtration Rate 52, BUN/Creatinine Ratio 31, Glucose Level 135H, Calcium Level 8.6, Phosphorus Level 3.6, Magnesium Level 2.8H, B-Type Natriuretic Peptide 948.5H 01/16/20 04:50: Blood Gas Puncture Site RIGHT RADIAL, Blood Gas Patient Temperature 36.5, Arterial Blood pH 7.39, Arterial Blood Partial Pressure CO2 33L, Arterial Blood Partial Pressure O2 95H, Arterial Blood HCO3 20L, Arterial Blood Total CO2 20.8L , Arterial Blood Oxygen Saturation 97, Arterial Blood Base Excess -4.4L, Ramses Test POSITIVE, Blood Gas Ventilator Setting NO, Blood Gas Inspired Oxygen 35 Microbiology 01/14/20 MRSA Screen - Final, Complete MRSA not isolated 01/12/20 Blood Culture - Preliminary, Resulted No growth Assessment/Plan Assessment/Plan Admission Dx RESPIRATORY DISTRESS LYMPHOCYTOSIS SEPSIS PNEUMONIA ACUTE ON CHRONIC RENAL INSUFFICIENCY POSSIBLE ENDOCARDITIS ELEVATED TROPONIN ANEMIA HYPERTENSION DIABETES MELLITUS HARD OF HEARING RESPIRATORY DISTRESS WITH PNEUMONIA ON CXR - ON IV ANTIBIOTICS, CONTINUE WITH SERIAL CHEST XRAYS - IMPROVED SLIGHTLY- PT NOW ON VAPOTHERM, BUT GETS QUITE SHORT OF BREATH AND IS IN SLIGHT DISTRESS WITH ANY MOVEMENT IN BED LYMPHOCYTOSIS SEPSIS - SLIGHTLY IMPROVED - CONTINUE TO MONITOR POSSIBLE ENDOCARDITIS - ON BROAD SPECTRUM ANTIBIOTICS - MARCY PLANNED FOR TOMORROW ACUTE ON CHRONIC RENAL INSUFFICIENCY - SUPPORTIVE CARE WITH FLUIDS - RENAL FUNCTION IMPROVED. ELEVATED TROPONIN - DEFER TO CARDIOLOGY - WORK-UP PENDING. ANEMIA - CONTINUE TO MONITOR. HYPERTENSION - STABLE - CONTINUE TO MONITOR DIABETES MELLITUS - PT ON SLIDING SCALE HARD OF HEARING - COULD USE WHITE BOARD IN ROOM FOR PATIENT TO HELP FACILITATE COMMUNICATION. COVID-19 STATUS PENDING - INITIAL TEST NEGATIVE, ANTIBODY TEST AND REPEAT ANTIGEN NEGATIVE. Admission Dx RESPIRATORY DISTRESS LYMPHOCYTOSIS PNEUMONIA ACUTE ON CHRONIC RENAL INSUFFICIENCY POSSIBLE ENDOCARDITIS ELEVATED TROPONIN ANEMIA HYPERTENSION DIABETES MELLITUS HARD OF HEARING RESPIRATORY DISTRESS WITH PNEUMONIA ON CXR - ON IV ANTIBIOTICS, CONTINUE WITH SERIAL CHEST XRAYS - IMPROVED SLIGHTLY- PT NOW ON VAPOTHERM, BUT GETS QUITE SHORT OF BREATH AND IS IN SLIGHT DISTRESS WITH ANY MOVEMENT IN BED LYMPHOCYTOSIS - SLIGHTLY IMPROVED - CONTINUE TO MONITOR POSSIBLE ENDOCARDITIS - ON BROAD SPECTRUM ANTIBIOTICS - MARCY PLANNED FOR TOMORROW ACUTE ON CHRONIC RENAL INSUFFICIENCY - SUPPORTIVE CARE WITH FLUIDS - RENAL FUNCTION IMPROVED. ELEVATED TROPONIN - DEFER TO CARDIOLOGY - WORK-UP PENDING. ANEMIA - CONTINUE TO MONITOR. HYPERTENSION - STABLE - CONTINUE TO MONITOR DIABETES MELLITUS - PT ON SLIDING SCALE HARD OF HEARING - COULD USE WHITE BOARD IN ROOM FOR PATIENT TO HELP FACILITATE COMMUNICATION. COVID-19 STATUS PENDING - INITIAL TEST NEGATIVE, ANTIBODY TEST AND REPEAT ANTIGEN NEGATIVE. Clinical Quality Measures Admission Status Admission Dx RESPIRATORY DISTRESS LYMPHOCYTOSIS PNEUMONIA ACUTE ON CHRONIC RENAL INSUFFICIENCY POSSIBLE ENDOCARDITIS ELEVATED TROPONIN ANEMIA HYPERTENSION DIABETES MELLITUS HARD OF HEARING RESPIRATORY DISTRESS WITH PNEUMONIA ON CXR - ON IV ANTIBIOTICS, CONTINUE WITH SERIAL CHEST XRAYS - IMPROVED SLIGHTLY- PT NOW ON VAPOTHERM, BUT GETS QUITE SHORT OF BREATH AND IS IN SLIGHT DISTRESS WITH ANY MOVEMENT IN BED LYMPHOCYTOSIS - SLIGHTLY IMPROVED - CONTINUE TO MONITOR POSSIBLE ENDOCARDITIS - ON BROAD SPECTRUM ANTIBIOTICS - MARCY PLANNED FOR TOMORROW ACUTE ON CHRONIC RENAL INSUFFICIENCY - SUPPORTIVE CARE WITH FLUIDS - RENAL FUNCTION IMPROVED. ELEVATED TROPONIN - DEFER TO CARDIOLOGY - WORK-UP PENDING. ANEMIA - CONTINUE TO MONITOR. HYPERTENSION - STABLE - CONTINUE TO MONITOR DIABETES MELLITUS - PT ON SLIDING SCALE HARD OF HEARING - COULD USE WHITE BOARD IN ROOM FOR PATIENT TO HELP FACILITATE COMMUNICATION. COVID-19 STATUS PENDING - INITIAL TEST NEGATIVE, ANTIBODY TEST AND REPEAT ANTIGEN NEGATIVE. DVT/VTE Risk/Contraindication: Risk Factor Score Per Nursin RFS Level Per Nursing on Admit: 3=High NATHANIEL OLIVA MD Jan 16, 2020 08:20
--- NOTE | 2020-01-16 08:33 | Diagnostic Imaging Report ---
INDICATION: Sepsis and pneumonia. Time of exam 4:13 AM Correlation is made with prior chest from one day earlier. The heart size is stable. There are changes of median sternotomy. There is some patchy airspace infiltrate left mid to upper lung field, improved since yesterday. Right lung is fairly clear. No effusion or pneumothorax is seen. IMPRESSION: There is mild improved aeration left lung when compared to examination one day earlier. Dictated by: Dictated on workstation # [id number]
[2020-01-16] MEDS ORDERED: fentaNYL INJECTION 100 MCG/2 ML AMP ONE (08:40)
[2020-01-16] MEDS ORDERED: MIDAZOLAM 5 MG/5 ML (VERSED) VIAL ONE (08:40)
[2020-01-16] MEDS ORDERED: LIDOCAINE 2% VISCOUS 15 ML UDC ONE (08:41)
--- NOTE | 2020-01-16 09:18 | Physical Therapy Progress Note ---
Therapy Progress Note Nurse states patient just got through with a medical procedure and cannot participate in physical therapy for a while. Will check back this afternoon. AMINTA ANDRADE PT Jan 16, 2020 09:18
--- NOTE | 2020-01-16 09:23 | Occ Therapy Progress Note ---
Therapy Progress Note Pt. had medical procedure this a.m. Will check back later for therapy. [id number] AMANDA ARAUJO OT Jan 16, 2020 09:23
--- NOTE | 2020-01-16 09:47 | Cardiac Procedure Note-CS/ASA ---
Pre-Procedure Note Pre-Op Procedure Note H&P Reviewed The H&P was reviewed, patient examined and no changes noted. Date H&P Reviewed: Jan 16, 2020 Time H&P Reviewed: 08:00 Conscious Sedation Pre-Proced Time 08:00 ASA Score 3 For ASA 3 and 4: Consider anesthesia and medical clearance. Also, for patients with a history of failed moderate sedation consider anesthesia. Airway Lungs Heart ASA score ASA 1: a normal healthy patient ASA 2: a patient with a mild systemic disease (mid diabetes, controlled hypertension, obesity x ASA 3: a patient with a severe systemic disease that limits activity (angina, COPD, prior Myocardial infarction) ASA 4: a patient with an incapacitating disease that is a constant threat to life (CHF, renal failure) ASA 5: a moribund patient not expected to survive 24 hrs. (ruptured aneurysm) ASA 6: a declared brain- patient whose organs are being harvested. For emergent operations, add the letter E after the classification Mallampati Classification Grade 3 Sedation Plan Analgesia, Amnesia, Plan communicated to team members, Discussed options with patient/fam, Discussed risks with patient/fam The patient is an appropriate candidate to undergo the planned procedure, sedation, and anesthesia. The patient immediately re-assessed prior to indication. WIHT ESCALANTE MD Jan 16, 2020 09:47
--- NOTE | 2020-01-16 09:51 | Cardiology Progress Note ---
Subjective Date Seen by Provider: Jan 16, 2020 Time Seen by Provider: 09:49 Subjective/Events-last exam Patient was seen at bedside laying down comfortably no new complaint Review of Systems General: No Chills, No Night Sweats, No Fatigue, No Malaise, No Appetite, No Other HEENT: No Head Aches, No Visual Changes, No Eye Pain, No Ear Pain, No Dysphasia, No Sinus Congestion, No Post Nasal Drip, No Sore Throat, No Other Pulmonary: Dyspnea; No Cough, No Pleuritic Chest Pain, No Other Cardiovascular: No: Chest Pain, Palpitations, Orthopnea, Paroxysmal Noc. Dyspnea, Edema, Lt Headedness, Other Focused Exam Time of Focused Exam: 20:00 Objective-Cardiology Exam Last Set of Vital Signs Vital Signs 01/16/20 01/16/20 01/16/20 01/16/20 04:03 07:17 08:00 09:00 Temp 35.7 Pulse 62 Resp 41 B/P (MAP) 146/75 (98) Pulse Ox 89 O2 Delivery Vapotherm O2 Flow Rate 25.00 35.00 FiO2 35 Capillary Refill : Less Than 3 Seconds I&O Intake and Output 01/16/20 00:00 Intake Total 2040 ml Output Total 250 ml Balance 1790 ml Intake Oral 1020 ml IV Total 1020 ml Output Urine Total 250 ml # Urine Diapers 8 # Bowel Movements 2 General: Alert, Oriented X3, Cooperative HEENT: Atraumatic, PERRLA Neck: Supple, No JVD, No Thyromegaly Lungs: Normal Air Movement, Other (Bilateral rhonchi) Heart: Regular Rate, Normal S1, Normal S2 Abdomen: Normal Bowel Sounds, Soft, No Tenderness, No Hepatosplenomegaly, No Masses Extremities: No Clubbing, No Cyanosis, No Edema, Normal Pulses, No Tenderness/Swelling Skin: No Rashes, No Breakdown, No Significant Lesion Neuro: Normal Speech, Normal Tone, Sensation Intact Psych/Mental Status: Mood NL Results Lab Laboratory Tests 01/16/20 03:05 A/P-Cardiology Admission Diagnosis Pneumonia Type II CT Sepsis Acute renal failure Assessment/Plan Status post respiratory failure, improving, receiving antibiotics. Gram-positive bacteremia, MARCY was done on January 16, 2020 showing normal LV size and function, no vegetation on any valvular structure, heavily calcified mitral valve with moderate to severe mitral regurgitation, prosthetic valve in the aortic position functioning normally with no vegetation, tricuspid and pulmonic valve are normal, normal aorta Pneumonia, Streptococcus in the blood culture, managed by primary care team Sepsis, managed by primary care team and program proposals coordinator. Type II CT, secondary to respiratory failure. Continue with conservative management History of bovine aortic valve replacement, MARCY was done on January 16, 2020, prosthetic valve is functioning normally. Congestive heart failure, acute on chronic left ventricular diastolic dysfunction, normal systolic function. Acute on chronic renal failure. Continue with hydration and monitor renal function Hypertension, monitor blood pressure Questionable history of second-degree Mobitz 1 block. Asymptomatic at this time. COVID exposure, tested negative Clinical Quality Measures DVT/VTE Risk/Contraindication: Risk Factor Score Per Nursin RFS Level Per Nursing on Admit: 3=High WHIT ESCALANTE MD Jan 16, 2020 09:51
[2020-01-16] MEDS: FLUTICASONE 110 MCG INHALER (FLOVENT) 12 GM INH SCH ×2 (09:52→18:29)
[2020-01-16] MEDS: risperiDONE 1 MG (RisperDAL) TAB PO SCH ×2 (10:03→19:45)
[2020-01-16] MEDS: AZITHROMYCIN 250 MG TAB (ZITHROMAX) PO SCH (10:03)
--- NOTE | 2020-01-16 11:20 | NUR ---
Pastoral care visit.
--- NOTE | 2020-01-16 13:04 | NUR ---
RD ASSESSMENT PMHx: HTN; DM; hypercholesterolemia; PT INTERACTION: Pt was awake and pleasant during nutrition assessment. Note pt has had states of confusion and is hard of hearing, per chart review. Pt states current appetite is not great and has been this way for about 1w. Note pt has been refusing meals, and avg PO intake of meals consumed is 62% x2meal, per chart review. Pt states following a regular diet at home, and has no issues with chewing/swallowing food. Pt states no recent issues with nausea, vomiting, constipation, or diarrhea. Note last BM was 01/14, and pt not currently on bowel regimen per chart review. Pt states recent wt loss, but unsure of amount/timeframe. Note unable to determine recent wt hx, per chart review. Pt states current DM management is "fairly good" and he is unsure of avg blood glucose levels. Note unable to determine recent HbA1c, per chart review. ABNORMAL NUTRITION-RELATED LAB VALUES LOW: HIGH: BUN 41; cr 1.31; glu 135; Mg 2.8 Est. kcal needs: 4211-1631 kcal | 15-20 kcal/kg Est. Pro needs: 83-104 g Pro | 0.8-1.0 g Pro/kg PES STATEMENT: Inadequate oral intake (NI-2.1) related to loss of appetite as evidenced by pt interview | pt refusing meals | avg PO intake 62% x2meal INTERVENTION: Continue with current diet order of CHO 45g/m 1snack diet. Add Glucerna (vary) to meals TID, for increased kcal intake. Provides 220 kcal and 10 g Pro per serving. Did not offer diet education on DM management at this time d/t pt confusion. May attempt to offer again with family present at bedside. Will continue to follow and reassess as pt needs, intake, and status change. MONITOR/EVALUATE: PO Intake; Plan of Care; Hydration Status; Weight Status; Lab Values Haylee Acuña, MS, RD, LD
--- NOTE | 2020-01-16 14:47 | Physical Therapy Daily Note ---
PT Daily Note-Current Subjective Pt laying Supine in bed upon arrival. Pt agrees to PT. Mental Status Patient Orientation: Person, Confused Attachments: Oxygen, Other-See Comments (Telelmetry & Purewick) Transfers SCALE: Activities may be completed with or without assistive devices. 7-[id number] completes the activity by him/herself with no assistance from a helper. 5-Set-up or Clean-up Assistance-helper sets up or cleans up; patient completes activity. [place] assists only prior to or following the activity. 4-Supervision or Touching Assistance-helper provides verbal cues and/or touching/steadying and/or contact guard assistance as patient completes activity. Assistance may be provided throughout the activity or intermittently. 3-Partial/Moderate Assistance-helper does LESS THAN HALF the effort. Montgomery lifts, holds or supports trunk or limbs, but provides less than half the effort. 2-Substantial/Maximal Assistance-helper does MORE THAN HALF the effort. [place] lifts or holds trunk or limbs and provides more than half the effort. 0-[id number] does ALL the effort. Patient does none of the effort to complete the activity. Or, the assistance of 2 or more helpers is required for the patient to complete the activity. If activity was not attempted, code reason: 7-Patient Refused. 9-Not Applicable-not attempted and the patient did not perform the activity before the current illness, exacerbation or injury. 10-Not Attempted due to Environmental Limitations-(lack of equipment, weather restraints, etc.). 88-Not Attempted due to Medical Conditions or Safety Concerns. Sit to Lying (QC): 5 Lying to Sitting/Side of Bed(Q: 5 Pt is able to complete Supine to Sit TF and vice versa but is very confused and not safe, needing VC. Weight Bearing Right Lower Extremity: Right Weight Bearing/Tolerated Left Lower Extremity: Left Weight Bearing/Tolerated Treatments Pt transfers from Supine to EOB then O2 Sats drop to 74% so SOLAR SALES REPRESENTATIVE lets pt rest before continuing. O2 jumps from 74-88% and in between but does not get above 88%. Pt returns to bed after sitting ~ 7m. Pt resting in bed at end of Rx. Pt has all needs met, call light next to pt. Assessment Current Status: Fair Progress Pt cannot tolerate extended time sitting. O2 level does not stay at appropriate level to continue. PT Fdc Goals Corporate Strategist Goals PT Fdc Goals Time Frame: Feb 02, 2020 Roll Left & Right (QC): 6 Sit to Lying (QC): 6 Lying-Sitting on Side/Bed(QC): 6 Sit to Stand (QC): 6 Chair/[id number] Xfer(QC): 6 Toilet Transfer (QC): 6 Does the Patient Walk: Yes Walk 10 feet (QC): 6 Walk 50ft with 2 Turns (QC): 6 Walk 150 ft (QC): 6 Walking 10ft on Uneven Surface: 6 1 Step (curb) (QC): 6 4 Steps (QC): 6 PT Plan Problem List Problem List: Activity Tolerance, Functional Strength, Safety, Balance Treatment/Plan Treatment Plan: Continue Plan of Care Treatment Plan: Bed Mobility, Education, Functional Activity Jean, Functional Strength, Gait, Safety, Therapeutic Exercise, Transfers Treatment Duration: Feb 02, 2020 Frequency: 6 times per week Estimated Hrs Per Day: .25 hour per day Patient and/or Family Agrees t: Yes Safety Risks/Education Patient Education: Correct Positioning, Safety Issues Teaching Recipient: Patient Teaching Methods: Discussion Response to Teaching: Reinforcement Needed Time/GCodes Time In: 1410 Time Out: 1420 Total Billed Treatment Time: 10 Total Billed Treatment 1, FA (10m) LUIS FELIPE MCGRAW PTA Jan 16, 2020 14:47
--- NOTE | 2020-01-16 14:56 | Occupational Ther Daily Note ---
OT Current Status-Daily Note Subjective No pain reported. Appearance Pt. in bed. Nursing reports that pt. has been trying to undo cords and lines. Mental Status/Objective Patient Orientation: Unable to Assess Attachments: IV, Oxygen, Telemetry ADL-Treatment Therapy Code Descriptions/Definitions Functional [place] Measure: 0=Not Assessed/NA 4=Minimal Assistance 1=Total Assistance 5=Supervision or Setup 2=Maximal Assistance 6=Modified [place] 3=Moderate Assistance 7=Complete IndependenceSCALE: Activities may be completed with or without assistive devices. 3-Vrxkvzytby-wijsqhk completes the activity by him/herself with no assistance from a helper. 5-Set-up or Clean-up Assistance-helper sets up or cleans up; patient completes activity. Okay assists only prior to or following the activity. 4-Supervision or Touching Assistance-helper provides verbal cues and/or touching/steadying and/or contact guard assistance as patient completes activity. Assistance may be provided throughout the activity or intermittently. 3-Partial/Moderate Assistance-helper does LESS THAN HALF the effort. Okay lifts, holds or supports trunk or limbs, but provides less than half the effort. 2-Substantial/Maximal Assistance-helper does MORE THAN HALF the effort. Okay lifts or holds trunk or limbs and provides more than half the effort. 7-Lmbxyonkm-dxurpz does ALL the effort. Patient does none of the effort to complete the activity. Or, the assistance of 2 or more helpers is required for the patient to complete the activity. If activity was not attempted, code reason: 7-Patient Refused. 9-Not Applicable-not attempted and the patient did not perform the activity before the current illness, exacerbation or injury. 10-Not Attempted due to Environmental Limitations-(lack of equipment, weather restraints, etc.). 88-Not Attempted due to Medical Conditions or Safety Concerns. Other Treatment PT/OT co-treated briefly due to reported confusion and need for two clinicians. OT addressed sitting balance and endurance while PT focused on transfer. Pt. is very [place]. OT talked in loud, low voice. Pt. able to understand some questions. Pt. transferred supine-sit with min assist. Multiple lines in place and had to be adjusted. Pt. on vapotherm and oxygen sats monitored. Saturation levels waivered between 82% and 75%. Pt. encouraged to breathe deep. Pt. was offered to be assisted to chair, but he declines. OT gave pt. warm washcloth to wash face, but he said, "I don't need that." Pt. requests to lay down. Transferred sit-supine with SBA. Pt. requests for lights to be turned out. Bed alarm set and nursing notified that pt. back in bed. All needs met. Education OT Patient Education: Correct positioning, Modified ADL techniques, Progress toward Goal/Update tx plan, Purpose of tx/functional activities, Reviewed precautions, Rehab process, Transfer techniques Teaching Recipient: Patient Teaching Methods: Demonstration, Discussion Response to Teaching: Verbalize Understanding, Return Demonstration OT Blackjack Supervisor Goals [facility] Goals Time Frame: Jan 22, 2020 Eating (QC): 6 Oral Hygiene (QC): 6 Toileting Hygiene (QC): 6 Shower/Bathe Self (QC): 4 Upper Body Dressing (QC): 5 Lower Body Dressing (QC): 5 On/Off Footwear (QC): 5 Additional Goals: 1-Demonstrate ADL Tasks, 2-Verbalize Understanding, 3- ImproveStrength/Jean 1=Demonstrate adherence to instructed precautions during ADL tasks. 2=Patient will verbalize/demonstrate understanding of assistive devices/modifications for ADL. 3=Patient will improve strength/tolerance for activity to enable patient to perform ADL's. OT Education/Plan Problem List/Assessment Assessment: Decreased Activ Tolerance, Decreased Safety Aware, Dependent Transf ers, Impaired I ADL's, Impaired Self-Care Skills Discharge Recommendations Plan/Recommendations: Continue POC Therapy Discharge Recommendati: 24 Hour Supervision Treatment Plan/Plan of Care Treatment,Training & Education: Yes Patient would benefit from OT for education, treatment and training to promote independence in ADL's, mobility, safety and/or upper extremity function for ADL's. Plan of Care: ADL Retraining, Functional Mobility, UE Funct Exercise/Act Treatment Duration: Jan 22, 2020 Frequency: 5 times per week Estimated Hrs Per Day: .25 hour per day Agreement: Yes Rehab Potential: Fair Time/GCodes Start Time: 14:10 Stop Time: 14:30 Total Time Billed (hr/min): 10 (Co-treatment 20 minutes) Billed Treatment Time Co-treatment with PT. Please see above note for designated roles. AMANDA ARAUJO OT Jan 16, 2020 14:56
[2020-01-16 15:30] LABS: ABG BASE EXCESS -2.3 MMOL/L (-2.5-2.5); ABG OXYGEN SATURATION 97 % (94-100); ABG PCO2 37 MMHG (35-45); ABG PH 7.39 (7.37-7.43); ABG PO2 102 MMHG (79-93); ABG TCO2 22.9 MMOL/L (21.0-31.0)
[2020-01-16 15:32] LABS: INSPIRED O2 30%; PATIENT TEMP 37.1; VENTILATOR NO
[2020-01-16] MEDS ORDERED: diphenhydrAMINE 50 MG/ML INJ (BENADRYL) IVP NR (15:45)
--- NOTE | 2020-01-16 15:46 | NUR ---
PATIENT BECAME AGITATED ET ANXIOUS. STAFF IN ROOM WITH PATIENT FOR 1 HOUR, ATTEMPTING TO CALM PATIENT, ASSIST PATIENT WITH NEEDS. RECEIVED ORDERS FOR ABG BLOOD DRAW FROM EICU. LAB RESULTS WNL, RECEIVED NEW ORDERS FOR MEDICATION. SEE EMAR. DR. OLIVA NOTIFIED OF PATIENT CHANGES ET AGITATION. GRAHAM, PT DAUGHTER IN ROOM WITH PATIENT AT THIS TIME.
[2020-01-16] MEDS ORDERED: diphenhydrAMINE 50 MG/ML INJ (BENADRYL) ONE (15:48)
[2020-01-16] MEDS: cefTRIAXone FOR IV USE 2,000 MG in WATER (STERILE) FOR INJECTION 20 ML IV SCH (16:00)
[2020-01-16] MEDS ORDERED: HALOPERIDOL 5 MG/ML (HALDOL) VIAL IM NR (17:00)
[2020-01-16] MEDS: morphine INJ 4 MG/ML 1 ML (VIAL/SYRINGE) IVP PRN (19:45)
[2020-01-16] MEDS: LORazepam INJ 2 MG/ML (ATIVAN) VIAL IVP PRN (22:04)
[2020-01-17] VITALS (20 sets, daily range): BP systolic 90–150; BP diastolic 61–112
[2020-01-17] MEDS: ALBUTEROL/IPRATROP (COMBIVENT RESPIMAT) 4 GM INHALER IH SCH ×2 (02:11→02:13)
[2020-01-17 03:19] LABS: BASOPHILS % (AUTO) 0 % (0-10); EOSINOPHILS % (AUTO) 0 % (0-10); HEMATOCRIT 31 % (40-54); HEMOGLOBIN 10.2 G/DL (13.3-17.7); LYMPHOCYTES # (AUTO) 0.3 X 10^3 (1.0-4.0); LYMPHOCYTES % (AUTO) 4 % (12-44); MEAN CORPUSCULAR HEMOGLOBIN 30 PG (25-34); MEAN CORPUSCULAR HGB CONC 33 G/DL (32-36); MEAN CORPUSCULAR VOLUME 90 FL (80-99); MEAN PLATELET VOLUME 11.3 FL (7.4-10.4); MONOCYTES # (AUTO) 0.5 X 10^3 (0.0-1.0); MONOCYTES % (AUTO) 6 % (0-12); NEUTROPHILS # (AUTO) 6.6 X 10^3 (1.8-7.8); NEUTROPHILS % (AUTO) 90 % (42-75); PLATELET COUNT 226 10^3/uL (130-400); RED CELL DISTRIBUTION WIDTH 15.2 % (10.0-14.5); WHITE BLOOD COUNT 7.4 10^3/uL (4.3-11.0)
[2020-01-17] MEDS: morphine INJ 4 MG/ML 1 ML (VIAL/SYRINGE) IVP PRN ×2 (03:22→14:41)
[2020-01-17 03:33] LABS: POTASSIUM 4.3 MMOL/L (3.6-5.0)
[2020-01-17 03:34] LABS: CALCIUM 8.4 MG/DL (8.5-10.1)
[2020-01-17 03:38] LABS: CREATININE SERUM 1.31 MG/DL (0.60-1.30); PHOSPHORUS 3.5 MG/DL (2.3-4.7)
[2020-01-17 03:40] LABS: MAGNESIUM 2.8 MG/DL (1.6-2.4)
[2020-01-17] MEDS: KCL 20 MEQ TAB (K-DUR) PO SCH ×2 (04:08→06:26)
[2020-01-17] MEDS: POTASSIUM CL 10MEQ/50ML IVPB 50 ML IV SCH (04:08)
[2020-01-17] MEDS: MAGNESIUM 1 GM/100 ML IVPB 100 ML IV SCH (04:08)
[2020-01-17] MEDS: inSUlin ASPART (NovoLOG) 1 UNIT/0.01 ML (CHARGE PER UNIT) SC SCH ×4 (04:09→21:02)
[2020-01-17] MEDS: LACTATED RINGERS 1,000 ML IV SCH (05:11)
[2020-01-17] MEDS: DEXAMETHASONE 4 MG/ML SDV (DECADRON) IV SCH ×3 (05:11→20:44)
--- NOTE | 2020-01-17 06:02 | Pulmonary Progress Note ---
Subjective Time Seen by a Provider: 05:54 Subjective/Events-last exam PT has been agitated through the night. Sepsis Event Evaluation Height, Weight, BMI Height: '" Weight: lbs. oz. kg; 31.28 BMI Method: Focused Exam Time of Focused Exam: 20:00 Exam Exam Vital Signs Date Time Temp Pulse Resp B/P (MAP) Pulse Ox O2 Delivery O2 Flow Rate FiO2 01/17/20 05:00 57 18 105/68 (80) 93 Vapotherm 25.00 50.00 01/17/20 04:01 36.1 01/17/20 04:00 70 95 Vapotherm 25.00 50.00 01/17/20 04:00 Vapotherm 25.00 50 01/17/20 03:00 60 109/85 (93) 95 Vapotherm 25.00 50.00 01/17/20 02:14 35.8 Vapotherm 25.00 50.00 01/17/20 02:14 96 Vapotherm 25.00 50 01/17/20 02:00 64 90/61 (71) 96 NIV Bilevel 35.00 01/17/20 01:00 60 133/81 (98) 97 NIV Bilevel 35.00 01/17/20 01:00 67 01/17/20 00:24 35.4 01/17/20 00:00 65 125/85 (98) 97 NIV Bilevel 35.00 01/16/20 23:56 NIV Bilevel 35 01/16/20 23:00 68 112/77 (89) 95 NIV Bilevel 35.00 01/16/20 22:23 NIV Bilevel 35.00 01/16/20 22:18 73 26 35.00 01/16/20 22:00 63 89 Vapotherm 25.00 50.00 01/16/20 21:00 69 127/71 (89) 93 Vapotherm 25.00 50.00 01/16/20 20:00 Vapotherm 25.00 50.00 01/16/20 20:00 65 128/67 (87) 97 Vapotherm 25.00 50.00 01/16/20 20:00 35.6 01/16/20 19:57 Vapotherm 25.00 50 01/16/20 19:00 64 01/16/20 19:00 66 114/80 (91) 95 Vapotherm 25.00 35.00 01/16/20 18:38 97 Vapotherm 25.00 50 01/16/20 18:32 97 Vapotherm 25.00 50 01/16/20 18:00 70 35 118/70 (86) 89 Vapotherm 25.00 35.00 01/16/20 17:00 62 31 121/72 (88) Vapotherm 25.00 35.00 01/16/20 16:00 36.7 01/16/20 16:00 63 27 123/69 (87) 97 Vapotherm 25.00 35.00 01/16/20 16:00 Vapotherm 25.00 35 01/16/20 15:00 62 27 119/114 (116) 98 Vapotherm 25.00 35.00 01/16/20 14:00 67 39 108/98 (101) 90 Vapotherm 25.00 35.00 01/16/20 13:00 78 37 124/83 (97) 100 Vapotherm 25.00 35.00 01/16/20 12:44 77 01/16/20 12:00 70 27 171/97 (121) 100 Vapotherm 25.00 35.00 01/16/20 12:00 Vapotherm 25.00 35 01/16/20 11:10 35.7 01/16/20 11:00 54 123/90 (101) 99 NIV Bilevel 30.00 01/16/20 10:00 64 123/65 (84) 98 Vapotherm 25.00 35.00 01/16/20 09:54 96 Vapotherm 25.00 35 01/16/20 09:54 96 Vapotherm 25.00 35 01/16/20 09:00 62 146/75 (98) 89 Vapotherm 25.00 35.00 01/16/20 08:00 58 41 117/74 (88) 96 Vapotherm 25.00 35.00 01/16/20 08:00 Vapotherm 25.00 35 01/16/20 07:17 35.7 01/16/20 07:00 51 22 145/71 (95) 94 Vapotherm 25.00 35.00 01/16/20 06:38 50 01/16/20 06:00 58 26 132/77 (95) 95 Vapotherm 25.00 35.00 I & O 01/17/20 07:00 Intake Total 2140 ml Output Total 2000 ml Balance 140 ml Height & Weight Height: '" Weight: lbs. oz. kg; 31.28 BMI Method: General Appearance: No Apparent Distress, WD/WN HEENT: Moist Mucous Membranes, Other (hard of hearing) Neck: Normal Inspection, Supple Respiratory: Accessory Muscle Use, Decreased Breath Sounds, Other (CONVERSATIONAL DYSPNEA) Cardiovascular: Regular Rate, Rhythm, Systolic Murmur, Irregularly Irregular Capillary Refill: Less Than 3 Seconds Peripheral Pulses: 2+ Dorsalis Pedis (R), 2+ Left Dors-Pedis (L) Extremity: Normal Capillary Refill, No Calf Tenderness, No Pedal Edema Neurologic/Psychiatric: Alert, Oriented x3, Normal Mood/Affect; No Facial Droop Skin: Normal Color, Warm/Dry Results Lab Laboratory Tests 01/16/20 03:05 01/17/20 02:51 Assessment/Plan Assessment/Plan Acute respiratory failure - improved -CXR shows improvement -ABG does not look bad, SP02 is good. -Continue to titrate oxygen down -Pt has increased WOB however Sp02 and ABG look good. 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
[2020-01-17] MEDS: FUROSEMIDE 40 MG/4 ML INJ (LASIX) IVP SCH (06:26)
[2020-01-17] MEDS ORDERED: RT-ALBUTEROL/IPRATROPIUM 3 ML (DUONEB) VIAL ONE (06:52)
[2020-01-17] MEDS: RT-ALBUTEROL/IPRATROPIUM 3 ML (DUONEB) VIAL INH SCH ×4 (07:01→22:34)
--- NOTE | 2020-01-17 07:24 | Diagnostic Imaging Report ---
INDICATION: Sepsis. Comparison made with prior examination 01/16/2020. FINDINGS: There is a left upper lobe pneumonia. There is cardiomegaly. There has been previous median sternotomy. There is no pleural effusion or pneumothorax. IMPRESSION: Increasing left upper lobe pneumonia. Cardiomegaly. Dictated by: Dictated on workstation # [id number]
--- NOTE | 2020-01-17 07:42 | Cardiology Progress Note ---
Subjective Date Seen by Provider: Jan 17, 2020 Time Seen by Provider: 07:41 Subjective/Events-last exam Patient is sitting in a chair, short of breath on Vapotherm. Still in respiratory failure Review of Systems General: No Chills, No Night Sweats, No Fatigue, No Malaise, No Appetite, No Other HEENT: No Head Aches, No Visual Changes, No Eye Pain, No Ear Pain, No Dy sphasia, No Sinus Congestion, No Post Nasal Drip, No Sore Throat, No Other Pulmonary: Dyspnea; No Cough, No Pleuritic Chest Pain, No Other Cardiovascular: No: Chest Pain, Palpitations, Orthopnea, Paroxysmal Noc. Dyspnea, Edema, Lt Headedness, Other Focused Exam Time of Focused Exam: 20:00 Objective-Cardiology Exam Last Set of Vital Signs Vital Signs 01/17/20 01/17/20 01/17/20 05:00 07:02 07:05 Temp 35.6 Pulse 57 Resp 18 B/P (MAP) 105/68 (80) Pulse Ox 90 O2 Delivery Vapotherm O2 Flow Rate 25.00 FiO2 50 Capillary Refill : Less Than 3 Seconds I&O Intake and Output 01/17/20 00:00 Intake Total 3690 ml Output Total 2100 ml Balance 1590 ml Intake Oral 2190 ml IV Total 1500 ml Output Urine Total 2100 ml # Urine Diapers 5 General: Alert, Oriented X3, Cooperative HEENT: Atraumatic, PERRLA Neck: Supple, No JVD, No Thyromegaly Lungs: Normal Air Movement, Other (Bilateral rhonchi) Heart: Regular Rate, Normal S1, Normal S2 Abdomen: Normal Bowel Sounds, Soft, No Tenderness, No Hepatosplenomegaly, No M asses Extremities: No Clubbing, No Cyanosis, No Edema, Normal Pulses, No Tende rness/Swelling Skin: No Rashes, No Breakdown, No Significant Lesion Neuro: Normal Speech, Normal Tone, Sensation Intact Psych/Mental Status: Mood NL Results Lab Laboratory Tests 01/17/20 02:51 A/P-Cardiology Admission Diagnosis Pneumonia Type II CT Sepsis Acute renal failure Assessment/Plan Status post respiratory failure, improving, back on Vapotherm, managed by primary care team Gram-positive bacteremia, MARCY was done on January 16, 2020 showing normal LV size and function, no vegetation on any valvular structure, heavily calcified mitral valve with moderate to severe mitral regurgitation, prosthetic valve in the aortic position functioning normally with no vegetation, tricuspid and pulmonic valve are normal, normal aorta Pneumonia, Streptococcus in the blood culture, managed by primary care team Sepsis, managed by primary care team and carpet jack. Type II CT, secondary to respiratory failure. Continue with conservative manag ement History of bovine aortic valve replacement, MARCY was done on January 16, 2020, prosthetic valve is functioning normally. Congestive heart failure, acute on chronic left ventricular diastolic dysfu nction, normal systolic function. Acute on chronic renal failure. Continue with hydration and monitor renal function Hypertension, monitor blood pressure Questionable history of second-degree Mob[place] 1 block. Asymptomatic at this time. COVID exposure, tested negative Dr. Parikh is covering starting tomorrow Clinical Quality Measures DVT/VTE Risk/Contraindication: Risk Factor Score Per Nursin RFS Level Per Nursing on Admit: 3=High WHIT ESCALANTE MD Jan 17, 2020 07:42
[2020-01-17] MEDS: risperiDONE 1 MG (RisperDAL) TAB PO SCH ×3 (07:44→20:44)
--- NOTE | 2020-01-17 08:50 | Progress Note ---
Subjective Subjective Date Seen by Provider: Jan 17, 2020 Time Seen by Provider: 08:50 PT IS AGITATED, HE DENIES CHEST PAIN, SHORTNESS OF BREATH, ABDOMINAL PAIN, HOWEVER HE IS MORE CONFUSED THAN ON PREVIOUS DAYS. HE HAS HAD TO HAVE A SITTER INTERMITTENTLY DUE TO HIS CONFUSION. STAFF NOTES MORE ABDOMINAL BREATHING WELL. Review of Systems General: No Chills, No Night Sweats; Fatigue, Malaise; No Appetite, No Other HEENT: No Head Aches, No Visual Changes, No Eye Pain, No Ear Pain, No Dysphasia, No Sinus Congestion, No Post Nasal Drip, No Sore Throat, No Other Pulmonary: Dyspnea; No Cough, No Pleuritic Chest Pain, No Other Cardiovascular: No: Chest Pain, Palpitations, Orthopnea, Paroxysmal Noc. Dyspnea, Edema, Lt Headedness, Other Gastrointestinal: No: Nausea, Abdominal Pain, Diarrhea, Constipation Genitourinary: Frequency Musculoskeletal: No: back pain Neurological: Weakness, Confusion All Other Systems Reviewed All Other Systems Reviewed: Yes Objective Exam Vital Signs Vital Signs - First Documented 01/12/20 01/14/20 18:58 08:45 Temp 39.3 Pulse 60 Resp 20 B/P (MAP) 99/46 (63) Pulse Ox 97 O2 Delivery Room Air FiO2 30 Capillary Refill : Less Than 3 Seconds General Appearance: WD/WN, Mild Distress (RESPIRATORY) Eyes: Bilateral Eye PERRL HEENT: Moist Mucous Membranes, Other (hard of hearing) Neck: Normal Inspection, Supple Respiratory: Accessory Muscle Use, Decreased Breath Sounds, Other (CONVERSA TIONAL DYSPNEA, USE OF ACCESSORY MUSCLES, ABDOMINAL BREATHING) Cardiovascular: Regular Rate, Rhythm, Systolic Murmur, Irregularly Irregular Gastrointestinal: Normal Bowel Sounds, Soft, Other (ROUNDED, PROTUBERANT, USING ABD MUSCLES TO BREATHE) Back: No CVA Tenderness Extremity: Normal Capillary Refill, No Calf Tenderness, No Pedal Edema Neurologic/Psychiatric: Alert, Oriented x3, Normal Mood/Affect; No Facial Droop Skin: Normal Color, Warm/Dry Results Lab Laboratory Tests 01/16/20 11:12: Glucometer 131H 01/16/20 15:20: Blood Gas Puncture Site UNK, Blood Gas Patient Temperature 37.1, Arterial Blood pH 7.39, Arterial Blood Partial Pressure CO2 37, Arterial Blood Partial Pressure O2 102H, Arterial Blood HCO3 22L, Arterial Blood Total CO2 22.9, Arterial Blood Oxygen Saturation 97, Arterial Blood Base Excess -2.3, Ramses Test UNK, Blood Gas Ventilator Setting NO, Blood Gas Inspired Oxygen 30% 01/16/20 16:09: Glucometer 165H 01/16/20 20:39: Glucometer 207H 01/17/20 02:51: White Blood Count 7.4, Red Blood Count 3.43L, Hemoglobin 10.2L, Hematocrit 31L, Mean Corpuscular Volume 90, Mean Corpuscular Hemoglobin 30, Mean Corpuscular Hemoglobin Concent 33, Red Cell Distribution Width 15.2H, Platelet Count 226, M mara Platelet Volume 11.3H, Neutrophils (%) (Auto) 90H, Lymphocytes (%) (Auto) 4L , Monocytes (%) (Auto) 6, Eosinophils (%) (Auto) 0, Basophils (%) (Auto) 0, Neutrophils # (Auto) 6.6, Lymphocytes # (Auto) 0.3L, Monocytes # (Auto) 0.5, Eosinophils # (Auto) 0.0, Basophils # (Auto) 0.0, Sodium Level 139, Potassium Level 4.3, Chloride Level 108H, Carbon Dioxide Level 22, Anion Gap 9, Blood Urea Nitrogen 45H, Creatinine 1.31H, Estimat Glomerular Filtration Rate 52, BUN/Creatinine Ratio 34, Glucose Level 186H, Calcium Level 8.4L, Phosphorus Level 3.5, Magnesium Level 2.8H Microbiology 01/14/20 MRSA Screen - Final, Complete MRSA not isolated 01/12/20 Blood Culture - Preliminary, Resulted No growth Assessment/Plan Assessment/Plan Admission Dx RESPIRATORY DISTRESS LYMPHOCYTOSIS SEPSIS PNEUMONIA ACUTE ON CHRONIC RENAL INSUFFICIENCY POSSIBLE ENDOCARDITIS ELEVATED TROPONIN ANEMIA HYPERTENSION DIABETES MELLITUS HARD OF HEARING RESPIRATORY DISTRESS WITH PNEUMONIA ON CXR - ON IV ANTIBIOTICS - CHANGED TO ZOSYN, PT ON STEROIDS, CONTINUE WITH INHALED TREATMENTS, LASIX GIVEN TO PATIENT IV WELL. - HE CONTINUES TO BE TENUOUS FROM A RESPIRATORY STANDPOINT. LYMPHOCYTOSIS SEPSIS - SLIGHTLY IMPROVED - CONTINUE TO MONITOR ACUTE ON CHRONIC RENAL INSUFFICIENCY - SUPPORTIVE CARE WITH FLUIDS - RENAL FUNCTION IMPROVED. ELEVATED TROPONIN - DEFER TO CARDIOLOGY - WORK-UP PENDING. ANEMIA - CONTINUE TO MONITOR. HYPERTENSION - STABLE - CONTINUE TO MONITOR DIABETES MELLITUS - PT ON SLIDING SCALE HARD OF HEARING - COULD USE WHITE BOARD IN ROOM FOR PATIENT TO HELP FACILITATE COMMUNICATION. COVID-19 STATUS PENDING - INITIAL TEST NEGATIVE, ANTIBODY TEST AND REPEAT ANTIGEN NEGATIVE. Admission Dx RESPIRATORY DISTRESS LYMPHOCYTOSIS PNEUMONIA ACUTE ON CHRONIC RENAL INSUFFICIENCY POSSIBLE ENDOCARDITIS ELEVATED TROPONIN ANEMIA HYPERTENSION DIABETES MELLITUS HARD OF HEARING RESPIRATORY DISTRESS WITH PNEUMONIA ON CXR - ON IV ANTIBIOTICS, CONTINUE WITH SERIAL CHEST XRAYS - IMPROVED SLIGHTLY- PT NOW ON VAPOTHERM, BUT GETS QUITE SHORT OF BREATH AND IS IN SLIGHT DISTRESS WITH ANY MOVEMENT IN BED LYMPHOCYTOSIS - SLIGHTLY IMPROVED - CONTINUE TO MONITOR POSSIBLE ENDOCARDITIS - ON BROAD SPECTRUM ANTIBIOTICS - MARCY PLANNED FOR TOMORROW ACUTE ON CHRONIC RENAL INSUFFICIENCY - SUPPORTIVE CARE WITH FLUIDS - RENAL FUNCTION IMPROVED. ELEVATED TROPONIN - DEFER TO CARDIOLOGY - WORK-UP PENDING. ANEMIA - CONTINUE TO MONITOR. HYPERTENSION - STABLE - CONTINUE TO MONITOR DIABETES MELLITUS - PT ON SLIDING SCALE HARD OF HEARING - COULD USE WHITE BOARD IN ROOM FOR PATIENT TO HELP FACILITATE COMMUNICATION. COVID-19 STATUS PENDING - INITIAL TEST NEGATIVE, ANTIBODY TEST AND REPEAT ANTIGEN NEGATIVE. Clinical Quality Measures Admission Status Admission Dx RESPIRATORY DISTRESS LYMPHOCYTOSIS PNEUMONIA ACUTE ON CHRONIC RENAL INSUFFICIENCY POSSIBLE ENDOCARDITIS ELEVATED TROPONIN ANEMIA HYPERTENSION DIABETES MELLITUS HARD OF HEARING RESPIRATORY DISTRESS WITH PNEUMONIA ON CXR - ON IV ANTIBIOTICS, CONTINUE WITH SERIAL CHEST XRAYS - IMPROVED SLIGHTLY- PT NOW ON VAPOTHERM, BUT GETS QUITE SHORT OF BREATH AND IS IN SLIGHT DISTRESS WITH ANY MOVEMENT IN BED LYMPHOCYTOSIS - SLIGHTLY IMPROVED - CONTINUE TO MONITOR POSSIBLE ENDOCARDITIS - ON BROAD SPECTRUM ANTIBIOTICS - MARCY PLANNED FOR TOMORROW ACUTE ON CHRONIC RENAL INSUFFICIENCY - SUPPORTIVE CARE WITH FLUIDS - RENAL FUNCTION IMPROVED. ELEVATED TROPONIN - DEFER TO CARDIOLOGY - WORK-UP PENDING. ANEMIA - CONTINUE TO MONITOR. HYPERTENSION - STABLE - CONTINUE TO MONITOR DIABETES MELLITUS - PT ON SLIDING SCALE HARD OF HEARING - COULD USE WHITE BOARD IN ROOM FOR PATIENT TO HELP FACILITATE COMMUNICATION. COVID-19 STATUS PENDING - INITIAL TEST NEGATIVE, ANTIBODY TEST AND REPEAT ANTIGEN NEGATIVE. DVT/VTE Risk/Contraindication: Risk Factor Score Per Nursin RFS Level Per Nursing on Admit: 3=High NATHANIEL OLIVA MD Jan 17, 2020 08:50
[2020-01-17] MEDS ORDERED: PIPERACILLIN/TAZOBACTAM (BULK) 4.5 GM in NS (IVPB) 100 ML IV ONE (09:32)
[2020-01-17] MEDS: LACTOBACILLUS ACIDOPHILUS (PROBIOTIC) CAPSULE PO SCH ×3 (09:45→18:12)
--- NOTE | 2020-01-17 10:24 | Physical Therapy Daily Note ---
PT Daily Note-Current Subjective Patient in recliner with chair alarm and sitter present due to increase confusion. Pain Numeric Pain Scale: 0-No Pain Location: No Pain Reported Mental Status Patient Orientation: Confused Attachments: Oxygen (vapotherm) Transfers SCALE: Activities may be completed with or without assistive devices. 3-Dpkfwsrrbm-vbehxop completes the activity by him/herself with no assistance from a helper. 5-Set-up or Clean-up Assistance-helper sets up or cleans up; patient completes activity. [place] assists only prior to or following the activity. 4-Supervision or Touching Assistance-helper provides verbal cues and/or touching/steadying and/or contact guard assistance as patient completes activity. Assistance may be provided throughout the activity or intermittently. 3-Partial/Moderate Assistance-helper does LESS THAN HALF the effort. [place] lifts, holds or supports trunk or limbs, but provides less than half the effort. 2-Substantial/Maximal Assistance-helper does MORE THAN HALF the effort. [place] lifts or holds trunk or limbs and provides more than half the effort. 6-Whiwmewyg-lfysqr does ALL the effort. Patient does none of the effort to complete the activity. Or, the assistance of 2 or more helpers is required for the patient to complete the activity. If activity was not attempted, code reason: 7-Patient Refused. 9-Not Applicable-not attempted and the patient did not perform the activity before the current illness, exacerbation or injury. 10-Not Attempted due to Environmental Limitations-(lack of equipment, weather restraints, etc.). 88-Not Attempted due to Medical Conditions or Safety Concerns. Sit to Stand (QC): 5 Weight Bearing Right Lower Extremity: Right Weight Bearing/Tolerated Left Lower Extremity: Left Weight Bearing/Tolerated Exercises Standing: Marching, Sit to Stand (3 sets) Standing Reps: 15 (3 sets) Assessment SAO2 decreases to 77% on Vapotherm 50%/20L with standing activity. Patient does recover in sit after 1 min to 98%. Patient appears lethargic due to medications due to agitation in night. PT to increase activity as tolerated by patient. 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 Metalizing Machine Operator Goals 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 Time Frame: Feb 02, 2020 Roll Left & Right (QC): 6 Sit to Lying (QC): 6 Lying-Sitting on Side/Bed(QC): 6 Sit to Stand (QC): 6 Chair/Gbd-uh-Gctve Xfer(QC): 6 Toilet Transfer (QC): 6 Does the Patient Walk: Yes Walk 10 feet (QC): 6 Walk 50ft with 2 Turns (QC): 6 Walk 150 ft (QC): 6 Walking 10ft on Uneven Surface: 6 1 Step (curb) (QC): 6 4 Steps (QC): 6 PT Plan Treatment/Plan Treatment Plan: Continue Plan of Care Treatment Plan: Bed Mobility, Education, Functional Activity Jean, Functional Strength, Gait, Safety, Therapeutic Exercise, Transfers Treatment Duration: Feb 02, 2020 Frequency: 6 times per week Estimated Hrs Per Day: .25 hour per day Patient and/or Family Agrees t: Yes Time/GCodes Time In: 942 Time Out: 955 Total Billed Treatment Time: 13 Total Billed Treatment 1 visit EX 15 min TORI OLIVAS PT Jan 17, 2020 10:24
[2020-01-17] MEDS: FLUTICASONE 110 MCG INHALER (FLOVENT) 12 GM INH SCH ×2 (10:25→18:44)
[2020-01-17] MEDS ORDERED: PIPERACILLIN/TAZOBACTAM (BULK) 4.5 GM in NS (IVPB) 100 ML IV NR (10:27)
[2020-01-17] MEDS: LORazepam INJ 2 MG/ML (ATIVAN) VIAL IVP PRN ×2 (11:13→20:44)
--- NOTE | 2020-01-17 13:26 | Occupational Ther Daily Note ---
OT Current Status-Daily Note Subjective No pain reported. Appearance Pt. is sitting up in room. Sitter is in room with him. Mental Status/Objective Patient Orientation: Unable to Assess ADL-Treatment Therapy Code Descriptions/Definitions Functional Bibb Measure: 0=Not Assessed/NA 4=Minimal Assistance 1=Total Assistance 5=Supervision or Setup 2=Maximal Assistance 6=Modified Bibb 3=Moderate Assistance 7=Complete IndependenceSCALE: Activities may be completed with or without assistive devices. 5-Yuzqvqrwvq-qopqvqr completes the activity by him/herself with no assistance from a helper. 5-Set-up or Clean-up Assistance-helper sets up or cleans up; patient completes activity. [place] assists only prior to or following the activity. 4-Supervision or Touching Assistance-helper provides verbal cues and/or touching/steadying and/or contact guard assistance as patient completes activity. Assistance may be provided throughout the activity or intermittently. 3-Partial/Moderate Assistance-helper does LESS THAN HALF the effort. [place] lifts, holds or supports trunk or limbs, but provides less than half the effort. 2-Substantial/Maximal Assistance-helper does MORE THAN HALF the effort. [place] lifts or holds trunk or limbs and provides more than half the effort. 1-Vfpdjxcnh-qaoejb does ALL the effort. Patient does none of the effort to complete the activity. Or, the assistance of 2 or more helpers is required for the patient to complete the activity. If activity was not attempted, code reason: 7-Patient Refused. 9-Not Applicable-not attempted and the patient did not perform the activity before the current illness, exacerbation or injury. 10-Not Attempted due to Environmental Limitations-(lack of equipment, weather restraints, etc.). 88-Not Attempted due to Medical Conditions or Safety Concerns. Shower/Bathe Self (QC): 3 (Min assist to thoroughly cleanse rear marvin area in stance. Pt. able to cleanse all other parts.) On/Off Footwear: 4 (SBA to don slipper socks.) Toileting Hygiene (QC): 1 (Pt. has brief on and pure wick in place due to incontinence. Sitter reports that pt. had been incontinent of urine earlier in brief, and changed/cleansed.) Other Treatment Pt. sitting in chair. Agrees to work with OT. Pt. very [place]. Sponge bathes to best of ability. Pt. has ear pulse ox on, which does not stay on well. Difficulty determining oxygen saturations during ADLs. Pt. on vapotherm and required cues to keep it on during ADLs. After tasks, pt. up in chair with all needs met. Education OT Patient Education: Correct positioning, Modified ADL techniques, Progress toward Goal/Update tx plan, Purpose of tx/functional activities, Reviewed precautions, Rehab process, Transfer techniques Teaching Recipient: Patient Teaching Methods: Demonstration, Discussion Response to Teaching: Verbalize Understanding, Return Demonstration OT [employer] Goals [employer] Goals Time Frame: Jan 22, 2020 Eating (QC): 6 Oral Hygiene (QC): 6 Toileting Hygiene (QC): 6 Shower/Bathe Self (QC): 4 Upper Body Dressing (QC): 5 Lower Body Dressing (QC): 5 On/Off Footwear (QC): 5 Additional Goals: 1-Demonstrate ADL Tasks, 2-Verbalize Understanding, 3- ImproveStrength/Jean 1=Demonstrate adherence to instructed precautions during ADL tasks. 2=Patient will verbalize/demonstrate understanding of assistive devices/modifications for ADL. 3=Patient will improve strength/tolerance for activity to enable patient to perform ADL's. OT Education/Plan Problem List/Assessment Assessment: Decreased Activ Tolerance, Impaired Cognition, Impaired I ADL's, Impaired Self-Care Skills Discharge Recommendations Plan/Recommendations: Continue POC Therapy Discharge Recommendati: 24 Hour Supervision Treatment Plan/Plan of Care Treatment,Training & Education: Yes Patient would benefit from OT for education, treatment and training to promote independence in ADL's, mobility, safety and/or upper extremity function for ADL's. Plan of Care: ADL Retraining, Functional Mobility, UE Funct Exercise/Act Treatment Duration: Jan 22, 2020 Frequency: 5 times per week Estimated Hrs Per Day: .25 hour per day Agreement: Yes Rehab Potential: Fair Time/GCodes Start Time: 08:35 Stop Time: 09:00 Total Time Billed (hr/min): 25 Billed Treatment Time 1, ADL x 2 AMANDA ARAUJO OT Jan 17, 2020 13:26
[2020-01-17] MEDS ORDERED: HALOPERIDOL 5 MG/ML (HALDOL) VIAL IM/IV NR (15:00)
--- NOTE | 2020-01-17 15:30 | NUR ---
Pt anxious et increased work of breathing. Dr. Arvizu in to see pt et new orders received
[2020-01-17] MEDS ORDERED: FUROSEMIDE 40 MG/4 ML INJ (LASIX) IVP NR (16:15)
[2020-01-17 16:56] LABS: ABG BASE EXCESS -0.1 MMOL/L (-2.5-2.5); ABG OXYGEN SATURATION 98 % (94-100); ABG PCO2 42 MMHG (35-45); ABG PH 7.38 (7.37-7.43); ABG PO2 99 MMHG (79-93); ABG TCO2 25.6 MMOL/L (21.0-31.0)
[2020-01-17 16:58] LABS: ALLENS TEST YES-POS
[2020-01-17 16:59] LABS: INSPIRED O2 50%; PATIENT TEMP 36.9; VENTILATOR NO
[2020-01-17] MEDS: PIPERACILLIN/TAZO 4.5 GM/NS 100 ML IV SCH ×2 (17:50)
[2020-01-18] VITALS (28 sets, daily range): BP systolic 105–163; BP diastolic 63–109
[2020-01-18] MEDS: PIPERACILLIN/TAZO 4.5 GM/NS 100 ML IV SCH ×6 (00:16→16:47)
[2020-01-18] MEDS: RT-ALBUTEROL/IPRATROPIUM 3 ML (DUONEB) VIAL INH SCH ×6 (02:49→22:49)
[2020-01-18 03:39] LABS: BASOPHILS % (AUTO) 0 % (0-10); EOSINOPHILS % (AUTO) 0 % (0-10); HEMATOCRIT 36 % (40-54); HEMOGLOBIN 11.6 G/DL (13.3-17.7); LYMPHOCYTES # (AUTO) 0.5 X 10^3 (1.0-4.0); LYMPHOCYTES % (AUTO) 5 % (12-44); MEAN CORPUSCULAR HEMOGLOBIN 30 PG (25-34); MEAN CORPUSCULAR HGB CONC 32 G/DL (32-36); MEAN CORPUSCULAR VOLUME 92 FL (80-99); MEAN PLATELET VOLUME 11.5 FL (7.4-10.4); MONOCYTES # (AUTO) 0.5 X 10^3 (0.0-1.0); MONOCYTES % (AUTO) 5 % (0-12); NEUTROPHILS # (AUTO) 8.9 X 10^3 (1.8-7.8); NEUTROPHILS % (AUTO) 89 % (42-75); PLATELET COUNT 244 10^3/uL (130-400); RED CELL DISTRIBUTION WIDTH 15.2 % (10.0-14.5); WHITE BLOOD COUNT 9.9 10^3/uL (4.3-11.0)
[2020-01-18 03:59] LABS: CALCIUM 8.9 MG/DL (8.5-10.1); CREATININE SERUM 1.52 MG/DL (0.60-1.30); MAGNESIUM 2.6 MG/DL (1.6-2.4); PHOSPHORUS 3.9 MG/DL (2.3-4.7)
--- NOTE | 2020-01-18 05:28 | Diagnostic Imaging Report ---
Indication: Sepsis Portable chest 3:30 AM There are postoperative changes from median sternotomy. Heart is enlarged but stable. There is been interval clearing of the left upper lobe infiltrate. There are no effusions or pneumothoraces. IMPRESSION: Interval clearing of left upper lobe consolidation. There is a mild underlying interstitial prominence remaining. Dictated by: Dictated on workstation # [id number]
[2020-01-18] MEDS: DEXAMETHASONE 4 MG/ML SDV (DECADRON) IV SCH (05:30)
[2020-01-18] MEDS: POTASSIUM CL 10MEQ/50ML IVPB 50 ML IV SCH (06:07)
[2020-01-18] MEDS: MAGNESIUM 1 GM/100 ML IVPB 100 ML IV SCH (06:07)
[2020-01-18] MEDS: inSUlin ASPART (NovoLOG) 1 UNIT/0.01 ML (CHARGE PER UNIT) SC SCH ×4 (06:08→21:47)
[2020-01-18] MEDS: KCL 20 MEQ TAB (K-DUR) PO SCH ×2 (06:08→08:11)
--- NOTE | 2020-01-18 06:15 | NUR ---
This RN clarified when solu-medrol is to start. 0600 dose of decadron given previously to solu-medrol order. Per Dr Arvizu, begin solu-medrol at 1200.
[2020-01-18] MEDS: methylPREDNISolone 40 MG/ML (Solu-MEDROL) VIAL IV SCH ×3 (06:22→18:36)
[2020-01-18] MEDS: FLUTICASONE 110 MCG INHALER (FLOVENT) 12 GM INH SCH ×2 (06:47→20:00)
[2020-01-18] MEDS: FUROSEMIDE 40 MG/4 ML INJ (LASIX) IVP SCH (08:12)
[2020-01-18] MEDS: risperiDONE 1 MG (RisperDAL) TAB PO SCH ×3 (08:12→21:00)
[2020-01-18] MEDS: LACTOBACILLUS ACIDOPHILUS (PROBIOTIC) CAPSULE PO SCH ×3 (08:12→18:36)
--- NOTE | 2020-01-18 08:30 | NUR ---
Called Dr. Barrientos regarding assessment this Am. Noted increased work of breathing, increased abd muscle use, and lungs are tight et diminshed with decreased air movement since the last time this RN did an assessment yesterday, also noted increased confusion. Floyd Gonzalez stated to give ativan et attempt to put BiPAP on, she will be here to see pt shortly.
[2020-01-18] MEDS: LORazepam INJ 2 MG/ML (ATIVAN) VIAL IVP PRN ×2 (08:46→18:56)
--- NOTE | 2020-01-18 09:20 | NUR ---
Dr. Barrientos here, stated she will order abd x-ray et may place NG due to abd distention. Dr. Barrientos gave verbal order for soft wrist restraints if needed to maintain BiPAP and NG
--- NOTE | 2020-01-18 09:23 | Progress Note ---
Subjective Subjective Date Seen by Provider: Jan 18, 2020 Time Seen by Provider: 10:00 PT SITTING IN CHAIR AT BEDSIDE WITH SITTER IN ATTENDANCE. HE IS CONFUSED AND HE IS UNABLE TO ANSWER QUESTIONS TODAY. I HAVE TALKED HIS DTR - GRAHAM - AND INFORMED HER OF HIS DECLINING STATUS. HIS NUMBERS DO NOT LOOK WORSE, BUT HIS AGITATION AND CONFUSION WITH WORSENING WORK OF BREATHING IS CONCERNING. SHE HAS VOCALIZED THAT SHE IS GOING TO TALK TO HER MOM ABOUT HIM AND SHE WILL DISCUSS HIS CODE STATUS WITH FAMILY WELL. HER MOM IS GOING TO VISIT HIM TODAY AFTER 3PM. Review of Systems General: No Chills, No Night Sweats; Fatigue, Malaise; No Appetite, No Other HEENT: No Head Aches, No Visual Changes, No Eye Pain, No Ear Pain, No Dysphasia, No Sinus Congestion, No Post Nasal Drip, No Sore Throat, No Other Pulmonary: Dyspnea; No Cough, No Pleuritic Chest Pain, No Other Cardiovascular: Edema; No: Chest Pain, Palpitations, Orthopnea, Paroxysmal Noc. Dyspnea, Lt Headedness, Other Gastrointestinal: Other (DISTENDED ABDOMEN); No: Nausea, Abdominal Pain, Diarrhea, Constipation Genitourinary: Frequency, Incontinence Musculoskeletal: No: back pain Neurological: Weakness, Confusion All Other Systems Reviewed All Other Systems Reviewed: Yes Objective Exam Vital Signs Vital Signs - First Documented 01/12/20 01/14/20 18:58 08:45 Temp 39.3 Pulse 60 Resp 20 B/P (MAP) 99/46 (63) Pulse Ox 97 O2 Delivery Room Air FiO2 30 Capillary Refill : Less Than 3 Seconds General Appearance: WD/WN, Moderate Distress (INCREASED WORK OF BREATHING) Eyes: Bilateral Eye PERRL HEENT: Moist Mucous Membranes, Other (hard of hearing) Neck: Normal Inspection, Supple Respiratory: Accessory Muscle Use, Decreased Breath Sounds, Other (INCREASED WORK OF BREATHING, USE OF ABDOMINAL MUSCLES ) Cardiovascular: Regular Rate, Rhythm, Systolic Murmur, Irregularly Irregular Gastrointestinal: Normal Bowel Sounds, Soft, Other (ROUNDED, PROTUBERANT, USING ABD MUSCLES TO BREATHE) Back: No CVA Tenderness Extremity: Normal Capillary Refill, Pedal Edema Neurologic/Psychiatric: No Facial Droop; Other (CONFUSION, WEAKNESS, AGITATED) Skin: Normal Color, Warm/Dry Results Lab Laboratory Tests 01/17/20 11:45: Glucometer 190H 01/17/20 15:56: Glucometer 183H 01/17/20 16:43: Blood Gas Puncture Site R RAD, Blood Gas Patient Temperature 36.9, Arterial Blood pH 7.38, Arterial Blood Partial Pressure CO2 42, Arterial Blood Partial Pressure O2 99H, Arterial Blood HCO3 24, Arterial Blood Total CO2 25.6, Arterial Blood Oxygen Saturation 98, Arterial Blood Base Excess -0.1, Ramses Test YES-POS, Blood Gas Ventilator Setting NO, Blood Gas Inspired Oxygen 50% 01/17/20 20:34: Glucometer 179H 01/18/20 02:42: White Blood Count 9.9, Red Blood Count 3.92L, Hemoglobin 11.6L, Hematocrit 36L, Mean Corpuscular Volume 92, Mean Corpuscular Hemoglobin 30, Mean Corpuscular Hemoglobin Concent 32, Red Cell Distribution Width 15.2H, Platelet Count 244, Mean Platelet Volume 11.5H, Neutrophils (%) (Auto) 89H, Lymphocytes (%) (Auto) 5L, Monocytes (%) (Auto) 5, Eosinophils (%) (Auto) 0, Basophils (%) (Auto) 0, Neutrophils # (Auto) 8.9H, Lymphocytes # (Auto) 0.5L, Monocytes # (Auto) 0.5, Eosinophils # (Auto) 0.0, Basophils # (Auto) 0.0, Sodium Level 140, Potassium Level 4.0, Chloride Level 102, Carbon Dioxide Level 26, Anion Gap 12, Blood Urea Nitrogen 44H, Creatinine 1.52H, Estimat Glomerular Filtration Rate 44, BUN/Creatinine Ratio 29, Glucose Level 176H, Calcium Level 8.9, Phosphorus Level 3.9, Magnesium Level 2.6H, B-Type Natriuretic Peptide 678.0H, Procalcitonin 0.08 Microbiology 01/14/20 MRSA Screen - Final, Complete MRSA not isolated 01/12/20 Blood Culture - Preliminary, Resulted No growth Assessment/Plan Assessment/Plan Admission Dx RESPIRATORY DISTRESS LYMPHOCYTOSIS SEPSIS PNEUMONIA ACUTE ON CHRONIC RENAL INSUFFICIENCY ELEVATED TROPONIN ANEMIA HYPERTENSION DIABETES MELLITUS HARD OF HEARING RESPIRATORY DISTRESS WITH PNEUMONIA ON CXR - ON IV ZOSYN, CONTINUE WITH SERIAL CHEST XRAYS - ON BIPAP, ON STEROIDS, DISCUSSED WITH HIS DTR - WILL HAVE THEM PLACE NG TUBE TO DECREASE GASTRIC DISTENTION AHND HOPEFULLY EASE SOME OF THE TROUBLE WITH BREATHING. - CONTINUE WITH SUPPORTIVE CARE - FAMILY TO REPEAT DISCUSSION OF THE PATIENT'S CODE STATUS. LYMPHOCYTOSIS SEPSIS - SLIGHTLY IMPROVED - CONTINUE TO MONITOR ACUTE ON CHRONIC RENAL INSUFFICIENCY - SUPPORTIVE CARE WITH FLUIDS - RENAL FUNCTION IMPROVED. ELEVATED TROPONIN - DEFER TO CARDIOLOGY - WORK-UP PENDING. ANEMIA - CONTINUE TO MONITOR. HYPERTENSION - STABLE - CONTINUE TO MONITOR DIABETES MELLITUS - PT ON SLIDING SCALE COVID-19 NEGATIVE. Admission Dx RESPIRATORY DISTRESS LYMPHOCYTOSIS PNEUMONIA ACUTE ON CHRONIC RENAL INSUFFICIENCY POSSIBLE ENDOCARDITIS ELEVATED TROPONIN ANEMIA HYPERTENSION DIABETES MELLITUS HARD OF HEARING RESPIRATORY DISTRESS WITH PNEUMONIA ON CXR - ON IV ANTIBIOTICS, CONTINUE WITH SERIAL CHEST XRAYS - IMPROVED SLIGHTLY- PT NOW ON VAPOTHERM, BUT GETS QUITE SHORT OF BREATH AND IS IN SLIGHT DISTRESS WITH ANY MOVEMENT IN BED LYMPHOCYTOSIS - SLIGHTLY IMPROVED - CONTINUE TO MONITOR POSSIBLE ENDOCARDITIS - ON BROAD SPECTRUM ANTIBIOTICS - MARCY PLANNED FOR TOMORROW ACUTE ON CHRONIC RENAL INSUFFICIENCY - SUPPORTIVE CARE WITH FLUIDS - RENAL FUNCTION IMPROVED. ELEVATED TROPONIN - DEFER TO CARDIOLOGY - WORK-UP PENDING. ANEMIA - CONTINUE TO MONITOR. HYPERTENSION - STABLE - CONTINUE TO MONITOR DIABETES MELLITUS - PT ON SLIDING SCALE HARD OF HEARING - COULD USE WHITE BOARD IN ROOM FOR PATIENT TO HELP FACILITATE COMMUNICATION. COVID-19 STATUS PENDING - INITIAL TEST NEGATIVE, ANTIBODY TEST AND REPEAT ANTIGEN NEGATIVE. Clinical Quality Measures Admission Status Admission Dx RESPIRATORY DISTRESS LYMPHOCYTOSIS PNEUMONIA ACUTE ON CHRONIC RENAL INSUFFICIENCY POSSIBLE ENDOCARDITIS ELEVATED TROPONIN ANEMIA HYPERTENSION DIABETES MELLITUS HARD OF HEARING RESPIRATORY DISTRESS WITH PNEUMONIA ON CXR - ON IV ANTIBIOTICS, CONTINUE WITH SERIAL CHEST XRAYS - IMPROVED SLIGHTLY- PT NOW ON VAPOTHERM, BUT GETS QUITE SHORT OF BREATH AND IS IN SLIGHT DISTRESS WITH ANY MOVEMENT IN BED LYMPHOCYTOSIS - SLIGHTLY IMPROVED - CONTINUE TO MONITOR POSSIBLE ENDOCARDITIS - ON BROAD SPECTRUM ANTIBIOTICS - MARCY PLANNED FOR TOMORROW ACUTE ON CHRONIC RENAL INSUFFICIENCY - SUPPORTIVE CARE WITH FLUIDS - RENAL FUNCTION IMPROVED. ELEVATED TROPONIN - DEFER TO CARDIOLOGY - WORK-UP PENDING. ANEMIA - CONTINUE TO MONITOR. HYPERTENSION - STABLE - CONTINUE TO MONITOR DIABETES MELLITUS - PT ON SLIDING SCALE HARD OF HEARING - COULD USE WHITE BOARD IN ROOM FOR PATIENT TO HELP FACILITATE COMMUNICATION. COVID-19 STATUS PENDING - INITIAL TEST NEGATIVE, ANTIBODY TEST AND REPEAT ANTIGEN NEGATIVE. DVT/VTE Risk/Contraindication: Risk Factor Score Per Nursin RFS Level Per Nursing on Admit: 3=High NATHANIEL OLIVA MD Jan 18, 2020 09:23
--- NOTE | 2020-01-18 10:12 | Physical Therapy Progress Note ---
Therapy Progress Note Patient is currently on Bipap and very confused and agitated. Per RN, patient is declined in pulmonary function. Patient on hold per RN due to decline in status. PT will continue to monitor patient status and resume when medically stable and able to actively participate with skilled therapy. TORI OLIVAS PT Jan 18, 2020 10:12
--- NOTE | 2020-01-18 10:38 | Diagnostic Imaging Report ---
EXAM: Abdomen, flat and upright at 10:25 AM INDICATION: Abdominal distention COMPARISON: There are no prior studies available for comparison. FINDINGS: There is some gas in both the large and small bowel in a nonspecific fashion. There is no evidence for a bowel obstruction. There is no mass, organomegaly or pathological calcification evident. There is no sign of a pneumoperitoneum on the erect film. The osseous structures are intact. There is fairly severe degenerative disc and bone disease at L4-L5. IMPRESSION: 1. The bowel gas pattern is nonspecific. There is no acute abnormality identified. Dictated by: Dictated on workstation # [id number]
--- NOTE | 2020-01-18 10:38 | Occ Therapy Progress Note ---
Therapy Progress Note Hold per nursing on this date due to decline in pulmonary status. OT to continue to monitor and initiate tx on later date. FERMIN REID OTR Jan 18, 2020 10:38
--- NOTE | 2020-01-18 11:00 | NUR ---
NG placed to Rt nare. Texted Dr. Barrientos et asked if we could start pt on Geodon or Zyprexa prior to placing soft wrist restraints if pt started pulling at BiPAP et NG. Dr. Barrientos replied that she did not feel this is helpful becaucse he already had haldol as a prn et to utilize soft wrist restraints if needed.
--- NOTE | 2020-01-18 11:53 | Cardiology Progress Note ---
Cardiology SOAP Progress Note Subjective: Still shortness of breath. Objective: I&O/Vital Signs 01/20/20 01/20/20 01/20/20 01/20/20 06:42 07:30 10:03 11:27 Temp 36.6 36.8 Pulse 98 80 Resp 16 16 B/P (MAP) 141/65 (90) 126/58 (80) Pulse Ox 97 97 97 95 O2 Delivery Vapotherm Vapotherm Vapotherm Vapotherm O2 Flow Rate 30.00 30.00 30.00 30.00 40.00 40.00 FiO2 40 40 01/20/20 01/20/20 13:54 15:11 Temp 36.2 Pulse 98 Resp 18 B/P (MAP) 162/73 (102) Pulse Ox 87 97 O2 Delivery Vapotherm Vapotherm O2 Flow Rate 30.00 30.00 40.00 FiO2 40 01/20/20 00:00 Intake Total 0 ml Output Total 450 ml Balance -450 ml Constitutional: AAO x 3, apparent distress Respiratory: accessory muscle use, respiratory distress, chest is bilaterally symmetric, other (decreased breath sounds bilaterally.) Cardiovascular: regular rate-rhythm, S1 and S2 Gastrointestional: soft, audible bowel sounds Extremities: normal inspection, pedal edema Neurologic/Psychiatric: no motor/sensory deficits, alert, normal mood/affect, oriented x 3 Skin: normal color, warm/dry Results/Procedures: Labs Laboratory Tests 01/19/20 17:49: Glucometer 191H 01/20/20 00:11: Glucometer 217H 01/20/20 05:35: White Blood Count 11.2H, Red Blood Count 3.87L, Hemoglobin 11.7L, Hematocrit 36L , Mean Corpuscular Volume 93, Mean Corpuscular Hemoglobin 30, Mean Corpuscular Hemoglobin Concent 33, Red Cell Distribution Width 15.7H, Platelet Count 232, Mean Platelet Volume 11.1H, Neutrophils (%) (Auto) 91H, Lymphocytes (%) (Auto) 4L, Monocytes (%) (Auto) 5, Eosinophils (%) (Auto) 0, Basophils (%) (Auto) 0, Neutrophils # (Auto) 10.2H, Lymphocytes # (Auto) 0.4L, Monocytes # (Auto) 0.6, Eosinophils # (Auto) 0.0, Basophils # (Auto) 0.0, Sodium Level 145, Potassium Level 3.9, Chloride Level 104, Carbon Dioxide Level 28, Anion Gap 13, Blood Urea Nitrogen 43H, Creatinine 1.53H, Estimat Glomerular Filtration Rate 44, BUN/Creatinine Ratio 28, Glucose Level 210H, Calcium Level 8.5, Phosphorus Level 3.4, Magnesium Level 2.7H 01/20/20 11:11: Glucometer 184H 01/20/20 11:26: Glucometer 169H Microbiology 01/14/20 MRSA Screen - Final, Complete MRSA not isolated 01/12/20 Blood Culture - Final, Complete No growth A/P: Assessment/Dx: Pneumonia Type II ME Sepsis Acute renal failure Plan: Status post respiratory failure, improving, back on Vapotherm, managed by primary care team Gram-positive bacteremia, MARCY was done on January 16, 2020 showing normal LV size and function, no vegetation on any valvular structure, heavily calcified mitral valve with moderate to severe mitral regurgitation, prosthetic valve in the aortic position functioning normally with no vegetation, tricuspid and pulmonic valve are normal, normal aorta Pneumonia, Streptococcus in the blood culture, managed by primary care team Sepsis, 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 Type II ME, secondary to respiratory failure. Continue with conservative management History of bovine aortic valve replacement, MARCY was done on January 16, 2020, prosthetic valve is functioning normally. Congestive heart failure, acute on chronic left ventricular diastolic dysfunction, normal systolic function. Acute on chronic renal failure. Continue with hydration and monitor renal function Hypertension, monitor blood pressure Questionable history of second-degree Mobitz 1 block. Asymptomatic at this time. COVID exposure, tested negative Thank you for your consultation. Please call me if you have any questions. Dontrell Parikh MD, FACP, FACC, FSCAI, FHRS, CCDS Interventional Cardiology Cardiac Electrophysiology Vascular Medicine and Endovascular Interventions Focused Exam Time of Focused Exam: 20:00 Phyllis PARIKH MD Jan 18, 2020 11:53
--- NOTE | 2020-01-18 12:43 | Diagnostic Imaging Report ---
Clinical indication: Evaluate nasogastric tube placement. Exam: Limited portable supine x-ray of the abdomen. Comparison: X-ray chest and abdomen dated 01/18/2020. Findings and impression: 1: There is interval placement of a nasogastric tube with tip overlying the expected region of the gastric fundus. 2: The remainder of this exam shows no significant interval change compared to the prior study of comparison. Dictated by: Dictated on workstation # [id number]
[2020-01-18] MEDS: HALOPERIDOL 5 MG/ML (HALDOL) VIAL IM PRN (13:51)
--- NOTE | 2020-01-18 16:30 | NUR ---
Pt at bedside. She expressed she has spoken with the pt in the past et he does not want to be intubated. wants to honor these wishes and make pt DNI. does still want compressions and medications given if pt codes, but states she is going to have a "meeting of the minds" with her children and that may change. She will let us know if that changes.
[2020-01-18] MEDS: morphine INJ 4 MG/ML 1 ML (VIAL/SYRINGE) IVP PRN (21:00)
[2020-01-19] VITALS (16 sets, daily range): BP systolic 125–156; BP diastolic 75–95
[2020-01-19] MEDS: methylPREDNISolone 40 MG/ML (Solu-MEDROL) VIAL IV SCH ×4 (00:26→16:50)
[2020-01-19] MEDS: PIPERACILLIN/TAZO 4.5 GM/NS 100 ML IV SCH ×6 (00:27→17:06)
[2020-01-19] MEDS: RT-ALBUTEROL/IPRATROPIUM 3 ML (DUONEB) VIAL INH SCH ×6 (02:30→21:32)
[2020-01-19 03:18] LABS: BASOPHILS % (AUTO) 0 % (0-10); EOSINOPHILS % (AUTO) 0 % (0-10); HEMATOCRIT 36 % (40-54); HEMOGLOBIN 11.6 G/DL (13.3-17.7); LYMPHOCYTES # (AUTO) 0.6 X 10^3 (1.0-4.0); LYMPHOCYTES % (AUTO) 6 % (12-44); MEAN CORPUSCULAR HEMOGLOBIN 30 PG (25-34); MEAN CORPUSCULAR HGB CONC 32 G/DL (32-36); MEAN CORPUSCULAR VOLUME 92 FL (80-99); MEAN PLATELET VOLUME 10.8 FL (7.4-10.4); MONOCYTES # (AUTO) 0.7 X 10^3 (0.0-1.0); MONOCYTES % (AUTO) 7 % (0-12); NEUTROPHILS # (AUTO) 8.6 X 10^3 (1.8-7.8); NEUTROPHILS % (AUTO) 87 % (42-75); PLATELET COUNT 237 10^3/uL (130-400); RED CELL DISTRIBUTION WIDTH 15.4 % (10.0-14.5); WHITE BLOOD COUNT 9.9 10^3/uL (4.3-11.0)
[2020-01-19 03:36] LABS: CALCIUM 8.6 MG/DL (8.5-10.1); CREATININE SERUM 1.48 MG/DL (0.60-1.30); MAGNESIUM 2.8 MG/DL (1.6-2.4); PHOSPHORUS 3.5 MG/DL (2.3-4.7); POTASSIUM 3.9 MMOL/L (3.6-5.0)
[2020-01-19] MEDS: POTASSIUM CL 10MEQ/50ML IVPB 50 ML IV SCH (06:12)
[2020-01-19] MEDS: MAGNESIUM 1 GM/100 ML IVPB 100 ML IV SCH (06:13)
[2020-01-19] MEDS: inSUlin ASPART (NovoLOG) 1 UNIT/0.01 ML (CHARGE PER UNIT) SC SCH ×3 (06:13→16:49)
[2020-01-19] MEDS: KCL 20 MEQ TAB (K-DUR) PO SCH ×2 (06:13→09:15)
[2020-01-19] MEDS: FLUTICASONE 110 MCG INHALER (FLOVENT) 12 GM INH SCH ×2 (06:45→21:32)
--- NOTE | 2020-01-19 07:49 | Diagnostic Imaging Report ---
INDICATION: Pneumonia COMPARISON: 01/18/2020 FINDINGS: Single view of the chest demonstrates continued cardiac enlargement with central vascular congestion. Infiltrates in the left upper lobe and hilum persists but has decreased significantly. There is no pneumothorax. Sternal wires midline. An NG tube is seen folded on itself in the distal esophagus GE junction. IMPRESSION: 1. Improving aeration as described. 2. NG tube distal esophagus GE junction. Dictated by: Dictated on workstation # [id number]
[2020-01-19] MEDS: risperiDONE 1 MG (RisperDAL) TAB PO SCH ×4 (09:15→21:00)
[2020-01-19] MEDS: LACTOBACILLUS ACIDOPHILUS (PROBIOTIC) CAPSULE PO SCH ×3 (09:15→16:49)
[2020-01-19] MEDS: FUROSEMIDE 40 MG/4 ML INJ (LASIX) IVP SCH (09:16)
[2020-01-19] MEDS: HALOPERIDOL 5 MG/ML (HALDOL) VIAL IM PRN ×2 (10:21→17:26)
--- NOTE | 2020-01-19 11:26 | Progress Note ---
Subjective Subjective Date Seen by Provider: Jan 19, 2020 Time Seen by Provider: 10:45 No overnight events- still restless- tries to get up. Takes the BiPAP off. Sitter at bedtime redirecting. -Family agreed to make him DNI last night. -He does follow simple commands such as open your eyes, move your feet. Review of Systems General: No Chills, No Night Sweats; Fatigue, Malaise; No Appetite, No Other HEENT: No Head Aches, No Visual Changes, No Eye Pain, No Ear Pain, No Dysphasia, No Sinus Congestion, No Post Nasal Drip, No Sore Throat, No Other Pulmonary: Dyspnea; No Cough, No Pleuritic Chest Pain, No Other Cardiovascular: Edema; No: Chest Pain, Palpitations, Orthopnea, Paroxysmal Noc. Dyspnea, Lt Headedness, Other Gastrointestinal: Other (DISTENDED ABDOMEN); No: Nausea, Abdominal Pain, Diarrhea, Constipation Genitourinary: Frequency, Incontinence Musculoskeletal: No: back pain Neurological: Weakness, Confusion All Other Systems Reviewed All Other Systems Reviewed: Yes Objective Exam Vital Signs Vital Signs Date Time Temp Pulse Resp B/P (MAP) Pulse Ox O2 Delivery O2 Flow Rate FiO2 01/19/20 11:00 77 12 87 NIV Bilevel 24.00 01/19/20 10:23 NIV Bilevel 24.00 01/19/20 10:18 81 19 100 30.00 01/19/20 10:00 70 14 133/95 (108) 92 NIV Bilevel 30.00 01/19/20 09:00 75 16 156/85 (108) 75 NIV Bilevel 30.00 01/19/20 08:00 74 12 137/89 (105) 94 NIV Bilevel 30.00 01/19/20 07:48 36.4 01/19/20 07:32 NIV Bilevel 30 01/19/20 07:00 77 13 141/91 (108) 95 NIV Bilevel 30.00 01/19/20 07:00 84 01/19/20 06:47 68 18 95 30.00 01/19/20 06:00 75 14 138/89 (105) 95 NIV Bilevel 30.00 01/19/20 05:00 75 7 134/75 (94) 96 NIV Bilevel 30.00 01/19/20 04:00 75 16 126/85 (99) 93 NIV Bilevel 30.00 01/19/20 04:00 NIV Bilevel 30 01/19/20 03:57 36.2 01/19/20 03:00 86 24 155/92 (113) 96 NIV Bilevel 30.00 01/19/20 02:30 65 18 95 30.00 01/19/20 02:00 60 15 138/78 (98) 93 NIV Bilevel 30.00 01/19/20 01:00 69 01/19/20 01:00 79 16 133/86 (102) 97 NIV Bilevel 30.00 01/19/20 00:00 67 13 145/77 (99) 98 NIV Bilevel 30.00 01/19/20 00:00 NIV Bilevel 30 01/18/20 23:42 36.0 01/18/20 23:00 64 17 120/75 (90) 96 NIV Bilevel 30.00 01/18/20 22:50 65 17 95 30.00 01/18/20 22:00 67 25 115/74 (88) 93 NIV Bilevel 30.00 01/18/20 21:00 73 18 105/63 (77) 93 NIV Bilevel 30.00 01/18/20 20:00 35.8 01/18/20 20:00 80 31 135/90 (105) 97 NIV Bilevel 30.00 01/18/20 20:00 NIV Bilevel 30 01/18/20 19:19 74 18 94 30.00 01/18/20 19:00 80 16 132/80 (97) 95 NIV Bilevel 30.00 01/18/20 19:00 70 01/18/20 18:00 76 24 125/74 (91) 98 NIV Bilevel 30.00 01/18/20 17:00 76 13 147/84 (105) 94 NIV Bilevel 30.00 01/18/20 16:00 67 12 129/100 (110) 92 NIV Bilevel 30.00 01/18/20 16:00 36.3 01/18/20 15:55 NIV Bilevel 35 01/18/20 15:00 87 16 106/91 (96) 98 NIV Bilevel 30.00 01/18/20 14:00 82 16 149/90 (109) 94 NIV Bilevel 30.00 01/18/20 13:51 83 18 98 30.00 01/18/20 13:00 84 28 163/98 (119) 90 NIV Bilevel 30.00 01/18/20 12:25 82 01/18/20 12:12 NIV Bilevel 35 01/18/20 12:00 82 16 157/92 (113) 92 NIV Bilevel 30.00 I & O 01/19/20 07:00 Intake Total 460 ml Output Total 2400 ml Balance -1940 ml General Appearance: WD/WN, Moderate Distress (INCREASED WORK OF BREATHING- better with BIPAP) Eyes: Bilateral Eye PERRL HEENT: Moist Mucous Membranes, Other (hard of hearing) Neck: Normal Inspection, Supple Respiratory: Accessory Muscle Use, Decreased Breath Sounds, Other Cardiovascular: Regular Rate, Rhythm, Systolic Murmur Gastrointestinal: Normal Bowel Sounds, Soft, Other (ROUNDED, PROTUBERANT, USING ABD MUSCLES TO BREATHE) Back: No CVA Tenderness Extremity: Normal Capillary Refill, Pedal Edema Neurologic/Psychiatric: No Facial Droop; Other (CONFUSION, WEAKNESS, AGITATED) Skin: Normal Color, Warm/Dry Results Lab Laboratory Tests 01/18/20 15:23: Glucometer 185H 01/18/20 20:20: Glucometer 202H 01/19/20 02:55: White Blood Count 9.9, Red Blood Count 3.90L, Hemoglobin 11.6L, Hematocrit 36L, Mean Corpuscular Volume 92, Mean Corpuscular Hemoglobin 30, Mean Corpuscular Hemoglobin Concent 32, Red Cell Distribution Width 15.4H, Platelet Count 237, Mean Platelet Volume 10.8H, Neutrophils (%) (Auto) 87H, Lymphocytes (%) (Auto) 6L, Monocytes (%) (Auto) 7, Eosinophils (%) (Auto) 0, Basophils (%) (Auto) 0, Neutrophils # (Auto) 8.6H, Lymphocytes # (Auto) 0.6L, Monocytes # (Auto) 0.7, Eosinophils # (Auto) 0.0, Basophils # (Auto) 0.0, Sodium Level 143, Potassium Level 3.9, Chloride Level 103, Carbon Dioxide Level 29, Anion Gap 11, Blood Urea Nitrogen 43H, Creatinine 1.48H, Estimat Glomerular Filtration Rate 45, BUN/Crea tinine Ratio 29, Glucose Level 159H, Calcium Level 8.6, Phosphorus Level 3.5, Magnesium Level 2.8H 01/19/20 05:46: Glucometer 166H Microbiology 01/14/20 MRSA Screen - Final, Complete MRSA not isolated 01/12/20 Blood Culture - Final, Complete No growth Assessment/Plan Assessment/Plan Problems: (1) Acute respiratory failure with hypoxia Assessment & Plan: due to pneumonia and pulmonary congestion -improved (2) Sepsis (3) Generalized weakness (4) Acute on chronic kidney failure (5) DMII (diabetes mellitus, type 2) (6) HTN (hypertension) Clinical Quality Measures DVT/VTE Risk/Contraindication: Risk Factor Score Per Nursin RFS Level Per Nursing on Admit: 3=High KEHINDE KITCHEN MD Jan 19, 2020 11:26
--- NOTE | 2020-01-19 12:14 | Physical Therapy Daily Note ---
PT Daily Note-Current Subjective Pt non verbal. Pt had sitter present. Transfers SCALE: Activities may be completed with or without assistive devices. 4-Dgdrlvardt-jandppi completes the activity by him/herself with no assistance from a helper. 5-Set-up or Clean-up Assistance-helper sets up or cleans up; patient completes activity. [place] assists only prior to or following the activity. 4-Supervision or Touching Assistance-helper provides verbal cues and/or touching/steadying and/or contact guard assistance as patient completes activity. Assistance may be provided throughout the activity or intermittently. 3-Partial/Moderate Assistance-helper does LESS THAN HALF the effort. [place] lifts, holds or supports trunk or limbs, but provides less than half the effort. 2-Substantial/Maximal Assistance-helper does MORE THAN HALF the effort. [place] lifts or holds trunk or limbs and provides more than half the effort. 7-Qxrlrtetv-pnqkxa does ALL the effort. Patient does none of the effort to complete the activity. Or, the assistance of 2 or more helpers is required for the patient to complete the activity. If activity was not attempted, code reason: 7-Patient Refused. 9-Not Applicable-not attempted and the patient did not perform the activity before the current illness, exacerbation or injury. 10-Not Attempted due to Environmental Limitations-(lack of equipment, weather restraints, etc.). 88-Not Attempted due to Medical Conditions or Safety Concerns. Weight Bearing Right Lower Extremity: Right Weight Bearing/Tolerated Left Lower Extremity: Left Weight Bearing/Tolerated Treatments Pt seen for ABIODUN HANSEN (Venu) LE all planes all joints x 20 each. Hands continually pulling at attachments, control of hands necessary at times. Pt was rolled and changed, repositioned on side with assist of 2. Assessment Current Status: Poor Progress, Fair Progress Pt appeared to altagracia treatment well. His hands were busy pulling at attachments until he was changed and repositioned. Pt appeared to be resting comfortably at end of treatment. PT Prison Goals Prison Goals PT Prison Goals Time Frame: Feb 02, 2020 Roll Left & Right (QC): 6 Sit to Lying (QC): 6 Lying-Sitting on Side/Bed(QC): 6 Sit to Stand (QC): 6 Chair/Rjw-tk-Vgktv Xfer(QC): 6 Toilet Transfer (QC): 6 Does the Patient Walk: Yes Walk 10 feet (QC): 6 Walk 50ft with 2 Turns (QC): 6 Walk 150 ft (QC): 6 Walking 10ft on Uneven Surface: 6 1 Step (curb) (QC): 6 4 Steps (QC): 6 PT Plan Treatment/Plan Treatment Plan: Continue Plan of Care Treatment Plan: Bed Mobility, Education, Functional Activity Jean, Functional Strength, Gait, Safety, Therapeutic Exercise, Transfers Treatment Duration: Feb 02, 2020 Frequency: 6 times per week Estimated Hrs Per Day: .25 hour per day Patient and/or Family Agrees t: Yes Time/GCodes Time In: 1030 Time Out: 1050 Total Billed Treatment Time: 20 Total Billed Treatment 1, ther ex 20' IVETTE JOHNSON CPTA Jan 19, 2020 12:14
--- NOTE | 2020-01-19 12:30 | NUR ---
PATIENT ARRIVED TO ROOM FROM ICU 9. LIVE SITTER AT BEDSIDE. I AGREE WITH PREVIOUS RN'S ASSESSMENT AND WILL ASSUME CARE AT THIS TIME.
[2020-01-19] MEDS: LORazepam INJ 2 MG/ML (ATIVAN) VIAL IVP PRN ×2 (13:46→21:12)
--- NOTE | 2020-01-19 17:20 | NUR ---
ASSISTED PTS NURSE NICKOLAS RN. PT AGITATED AND PULLING AT TUBES. ARMS HELD BY 2 STAFF TO PREVENT REMOVAL OF NG TUBE AND OXYGEN. UNABLE TO REORIENT OR CALM. MS AND HALDOL GIVEN ORDERED. CONTINUES TO FIGHT STAFF AND PULL AT TUBES. ABLE TO GRAB NG TUBE AND PULL OUT. DR. KITCHEN CALLED AND ORDER FOR LIMB RESTRAINTS X 24 HOURS NEEDED TO PREVENT SELF INJURY. RESTRAINTS APPLIED PER PROTOCOL AND SITTER REMAINS AT BEDSIDE TO MONITOR.
[2020-01-19] MEDS: morphine INJ 4 MG/ML 1 ML (VIAL/SYRINGE) IVP PRN (17:26)
--- NOTE | 2020-01-19 21:54 | Cardiology Progress Note ---
Cardiology SOAP Progress Note Subjective: Mild shortness of breath. Objective: I&O/Vital Signs 01/20/20 01/20/20 01/20/20 01/20/20 06:42 07:30 10:03 11:27 Temp 36.6 36.8 Pulse 98 80 Resp 16 16 B/P (MAP) 141/65 (90) 126/58 (80) Pulse Ox 97 97 97 95 O2 Delivery Vapotherm Vapotherm Vapotherm Vapotherm O2 Flow Rate 30.00 30.00 30.00 30.00 40.00 40.00 FiO2 40 40 01/20/20 01/20/20 13:54 15:11 Temp 36.2 Pulse 98 Resp 18 B/P (MAP) 162/73 (102) Pulse Ox 87 97 O2 Delivery Vapotherm Vapotherm O2 Flow Rate 30.00 30.00 40.00 FiO2 40 01/20/20 00:00 Intake Total 0 ml Output Total 450 ml Balance -450 ml Constitutional: AAO x 3, apparent distress Respiratory: respiratory distress, chest is bilaterally symmetric, other (decreased breath sounds bilaterally.) Cardiovascular: regular rate-rhythm, S1 and S2; No diastolic murmur, No systolic murmur Gastrointestional: soft, audible bowel sounds Extremities: normal inspection, pedal edema Neurologic/Psychiatric: no motor/sensory deficits, alert, normal mood/affect, oriented x 3 Skin: normal color, warm/dry Results/Procedures: Labs Laboratory Tests 01/19/20 17:49: Glucometer 191H 01/20/20 00:11: Glucometer 217H 01/20/20 05:35: White Blood Count 11.2H, Red Blood Count 3.87L, Hemoglobin 11.7L, Hematocrit 36L , Mean Corpuscular Volume 93, Mean Corpuscular Hemoglobin 30, Mean Corpuscular Hemoglobin Concent 33, Red Cell Distribution Width 15.7H, Platelet Count 232, Mean Platelet Volume 11.1H, Neutrophils (%) (Auto) 91H, Lymphocytes (%) (Auto) 4L, Monocytes (%) (Auto) 5, Eosinophils (%) (Auto) 0, Basophils (%) (Auto) 0, Neutrophils # (Auto) 10.2H, Lymphocytes # (Auto) 0.4L, Monocytes # (Auto) 0.6, Eosinophils # (Auto) 0.0, Basophils # (Auto) 0.0, Sodium Level 145, Potassium Level 3.9, Chloride Level 104, Carbon Dioxide Level 28, Anion Gap 13, Blood Urea Nitrogen 43H, Creatinine 1.53H, Estimat Glomerular Filtration Rate 44, BUN/Creatinine Ratio 28, Glucose Level 210H, Calcium Level 8.5, Phosphorus Level 3.4, Magnesium Level 2.7H 01/20/20 11:11: Glucometer 184H 01/20/20 11:26: Glucometer 169H Microbiology 01/14/20 MRSA Screen - Final, Complete MRSA not isolated 01/12/20 Blood Culture - Final, Complete No growth A/P: Assessment/Dx: Pneumonia Type II SD Sepsis Acute renal failure Plan: Status post respiratory failure, improving, back on Vapotherm, managed by primary care team Gram-positive bacteremia, MARCY was done on January 16, 2020 showing normal LV size and function, no vegetation on any valvular structure, heavily calcified mitral valve with moderate to severe mitral regurgitation, prosthetic valve in the aortic position functioning normally with no vegetation, tricuspid and pulmonic valve are normal, normal aorta Pneumonia, Streptococcus in the blood culture, managed by primary care team Sepsis, managed by primary care team and service center specialist. Type II SD, secondary to respiratory failure. Continue with conservative management History of bovine aortic valve replacement, MARCY was done on January 16, 2020, prosthetic valve is functioning normally. Congestive heart failure, acute on chronic left ventricular diastolic dysfunction, normal systolic function. Acute on chronic renal failure. Continue with hydration and monitor renal function Hypertension, monitor blood pressure Questionable history of second-degree Mobitz 1 block. Asymptomatic at this time. COVID exposure, tested negative Thank you for your consultation. Please call me if you have any questions. Dontrell Parikh MD, FACP, FACC, FSCAI, FHRS, CCDS Interventional Cardiology Cardiac Electrophysiology Vascular Medicine and Endovascular Interventions Focused Exam Time of Focused Exam: 20:00 Phyllis PARIKH MD Jan 19, 2020 21:54
[2020-01-20] VITALS (7 sets, daily range): BP systolic 126–164; BP diastolic 58–88
[2020-01-20] MEDS: methylPREDNISolone 40 MG/ML (Solu-MEDROL) VIAL IV SCH ×4 (00:14→17:11)
[2020-01-20] MEDS: PIPERACILLIN/TAZO 4.5 GM/NS 100 ML IV SCH ×6 (00:14→16:58)
[2020-01-20] MEDS: inSUlin ASPART (NovoLOG) 1 UNIT/0.01 ML (CHARGE PER UNIT) SC SCH ×4 (00:24→18:28)
[2020-01-20] MEDS: RT-ALBUTEROL/IPRATROPIUM 3 ML (DUONEB) VIAL INH SCH ×6 (02:57→23:18)
[2020-01-20 05:52] LABS: BASOPHILS % (AUTO) 0 % (0-10); EOSINOPHILS % (AUTO) 0 % (0-10); HEMATOCRIT 36 % (40-54); HEMOGLOBIN 11.7 G/DL (13.3-17.7); LYMPHOCYTES # (AUTO) 0.4 X 10^3 (1.0-4.0); LYMPHOCYTES % (AUTO) 4 % (12-44); MEAN CORPUSCULAR HEMOGLOBIN 30 PG (25-34); MEAN CORPUSCULAR HGB CONC 33 G/DL (32-36); MEAN CORPUSCULAR VOLUME 93 FL (80-99); MEAN PLATELET VOLUME 11.1 FL (7.4-10.4); MONOCYTES # (AUTO) 0.6 X 10^3 (0.0-1.0); MONOCYTES % (AUTO) 5 % (0-12); NEUTROPHILS # (AUTO) 10.2 X 10^3 (1.8-7.8); NEUTROPHILS % (AUTO) 91 % (42-75); PLATELET COUNT 232 10^3/uL (130-400); RED CELL DISTRIBUTION WIDTH 15.7 % (10.0-14.5); WHITE BLOOD COUNT 11.2 10^3/uL (4.3-11.0)
[2020-01-20 06:11] LABS: POTASSIUM 3.9 MMOL/L (3.6-5.0)
[2020-01-20 06:12] LABS: CALCIUM 8.5 MG/DL (8.5-10.1)
[2020-01-20 06:16] LABS: CREATININE SERUM 1.53 MG/DL (0.60-1.30); PHOSPHORUS 3.4 MG/DL (2.3-4.7)
[2020-01-20] MEDS: KCL 20 MEQ TAB (K-DUR) PO SCH ×2 (06:16→06:46)
[2020-01-20] MEDS: POTASSIUM CL 10MEQ/50ML IVPB 50 ML IV SCH (06:16)
[2020-01-20 06:19] LABS: MAGNESIUM 2.7 MG/DL (1.6-2.4)
[2020-01-20] MEDS: MAGNESIUM 1 GM/100 ML IVPB 100 ML IV SCH (06:23)
[2020-01-20] MEDS: morphine INJ 4 MG/ML 1 ML (VIAL/SYRINGE) IVP PRN ×3 (06:33→22:10)
[2020-01-20] MEDS: FLUTICASONE 110 MCG INHALER (FLOVENT) 12 GM INH SCH ×2 (06:39→18:32)
[2020-01-20] MEDS: HALOPERIDOL 5 MG/ML (HALDOL) VIAL IM PRN ×2 (06:46→18:21)
[2020-01-20] MEDS: risperiDONE 1 MG (RisperDAL) TAB PO SCH ×3 (08:11→23:17)
--- NOTE | 2020-01-20 08:12 | NUR ---
Pt refusing to take oral medication at this time.
[2020-01-20] MEDS: LACTOBACILLUS ACIDOPHILUS (PROBIOTIC) CAPSULE PO SCH ×3 (08:15→17:11)
[2020-01-20] MEDS: FUROSEMIDE 40 MG/4 ML INJ (LASIX) IVP SCH (08:16)
[2020-01-20] MEDS: LORazepam INJ 2 MG/ML (ATIVAN) VIAL IVP PRN ×3 (10:35→22:11)
--- NOTE | 2020-01-20 10:42 | Progress Note ---
Subjective Subjective Date Seen by Provider: Jan 20, 2020 Time Seen by Provider: 11:10 Yesterday afternoon patient became active and pulled out his NG tube despite 2 staff trying to re-orient and stop him. He can move and has strength when he wants to. Today he is asleep in his bed- he refused to take his risperidone today. Nursing to try again when he wakes up. Review of Systems ROS Unable to Obtain: asleep Gastrointestinal: Other (DISTENDED ABDOMEN) Musculoskeletal: No: back pain All Other Systems Reviewed All Other Systems Reviewed: Yes Objective Exam Vital Signs Vital Signs Date Time Temp Pulse Resp B/P (MAP) Pulse Ox O2 Delivery O2 Flow Rate FiO2 01/20/20 10:03 97 Vapotherm 30.00 40 01/20/20 07:30 36.6 98 16 141/65 (90) 97 Vapotherm 30.00 40.00 01/20/20 06:42 97 Vapotherm 30.00 40 01/20/20 03:59 35.8 87 22 164/73 (103) 95 Vapotherm 30.00 01/20/20 02:57 94 Vapotherm 30.00 40 01/20/20 00:00 35.8 95 24 148/80 (102) 94 Vapotherm 30.00 01/19/20 21:34 94 Vapotherm 30.00 40 01/19/20 20:55 94 Vapotherm 30.00 40 01/19/20 19:12 36.2 110 22 139/88 (105) 96 Vapotherm 30.00 01/19/20 18:42 94 Vapotherm 30.00 40 01/19/20 15:33 35.9 94 24 125/79 (94) 95 Vapotherm 30.00 01/19/20 14:53 91 Vapotherm 30.00 40 01/19/20 11:32 35.2 01/19/20 11:00 77 12 87 NIV Bilevel 24.00 I & O 01/20/20 07:00 Intake Total 0 ml Output Total 600 ml Balance -600 ml General Appearance: WD/WN Eyes: Bilateral Eye PERRL HEENT: Moist Mucous Membranes, Other (hard of hearing) Neck: Normal Inspection, Supple Respiratory: Accessory Muscle Use, Decreased Breath Sounds, Other Cardiovascular: Systolic Murmur, Other (irregular) Gastrointestinal: Normal Bowel Sounds, Soft, Other (distended, soft) Back: No CVA Tenderness Extremity: Normal Capillary Refill, Pedal Edema Neurologic/Psychiatric: No Facial Droop; Other (CONFUSION, WEAKNESS, AGITATED) Skin: Normal Color, Warm/Dry Results Lab Laboratory Tests 01/19/20 11:34: Glucometer 202H 01/19/20 15:29: Glucometer 204H 01/19/20 17:49: Glucometer 191H 01/20/20 00:11: Glucometer 217H 01/20/20 05:35: White Blood Count 11.2H, Red Blood Count 3.87L, Hemoglobin 11.7L, Hematocrit 36L , Mean Corpuscular Volume 93, Mean Corpuscular Hemoglobin 30, Mean Corpuscular Hemoglobin Concent 33, Red Cell Distribution Width 15.7H, Platelet Count 232, Mean Platelet Volume 11.1H, Neutrophils (%) (Auto) 91H, Lymphocytes (%) (Auto) 4L, Monocytes (%) (Auto) 5, Eosinophils (%) (Auto) 0, Basophils (%) (Auto) 0, Neutrophils # (Auto) 10.2H, Lymphocytes # (Auto) 0.4L, Monocytes # (Auto) 0.6, Eosinophils # (Auto) 0.0, Basophils # (Auto) 0.0, Sodium Level 145, Potassium Level 3.9, Chloride Level 104, Carbon Dioxide Level 28, Anion Gap 13, Blood Urea Nitrogen 43H, Creatinine 1.53H, Estimat Glomerular Filtration Rate 44, BUN/Creatinine Ratio 28, Glucose Level 210H, Calcium Level 8.5, Phosphorus Level 3.4, Magnesium Level 2.7H Microbiology 01/14/20 MRSA Screen - Final, Complete MRSA not isolated 01/12/20 Blood Culture - Final, Complete No growth Assessment/Plan Assessment/Plan Assessment and Plan 01/20/20- monitor abdomen distention and respiratory status- may need to place the NG tube again. Continue current medication regimen. -Continue zosyn, continue steroids. Dispo: continue to monitor- not currently making much improvement. Problems: (1) Acute respiratory failure with hypoxia Assessment & Plan: due to pneumonia and pulmonary congestion -improved (2) Sepsis (3) Generalized weakness (4) Acute on chronic kidney failure (5) DMII (diabetes mellitus, type 2) (6) HTN (hypertension) Clinical Quality Measures DVT/VTE Risk/Contraindication: Risk Factor Score Per Nursin RFS Level Per Nursing on Admit: 3=High KEHINDE KITCHEN MD Jan 20, 2020 10:42
--- NOTE | 2020-01-20 17:22 | Cardiology Progress Note ---
Cardiology SOAP Progress Note Subjective: My shortness of breath. Gradually improving. Still on Vapotherm. Objective: I&O/Vital Signs 01/20/20 01/20/20 01/20/20 01/20/20 06:42 07:30 10:03 11:27 Temp 36.6 36.8 Pulse 98 80 Resp 16 16 B/P (MAP) 141/65 (90) 126/58 (80) Pulse Ox 97 97 97 95 O2 Delivery Vapotherm Vapotherm Vapotherm Vapotherm O2 Flow Rate 30.00 30.00 30.00 30.00 40.00 40.00 FiO2 40 40 01/20/20 01/20/20 13:54 15:11 Temp 36.2 Pulse 98 Resp 18 B/P (MAP) 162/73 (102) Pulse Ox 87 97 O2 Delivery Vapotherm Vapotherm O2 Flow Rate 30.00 30.00 40.00 FiO2 40 01/20/20 00:00 Intake Total 0 ml Output Total 450 ml Balance -450 ml Constitutional: AAO x 3, apparent distress Respiratory: respiratory distress, chest is bilaterally symmetric, other (decreased breath sounds bilaterally.) Cardiovascular: regular rate-rhythm, S1 and S2; No diastolic murmur, No systolic murmur Gastrointestional: soft, audible bowel sounds Extremities: normal inspection, pedal edema Neurologic/Psychiatric: no motor/sensory deficits, alert, normal mood/affect, oriented x 3 Skin: normal color, warm/dry Results/Procedures: Labs Laboratory Tests 01/19/20 17:49: Glucometer 191H 01/20/20 00:11: Glucometer 217H 01/20/20 05:35: White Blood Count 11.2H, Red Blood Count 3.87L, Hemoglobin 11.7L, Hematocrit 36L , Mean Corpuscular Volume 93, Mean Corpuscular Hemoglobin 30, Mean Corpuscular Hemoglobin Concent 33, Red Cell Distribution Width 15.7H, Platelet Count 232, Mean Platelet Volume 11.1H, Neutrophils (%) (Auto) 91H, Lymphocytes (%) (Auto) 4L, Monocytes (%) (Auto) 5, Eosinophils (%) (Auto) 0, Basophils (%) (Auto) 0, Neutrophils # (Auto) 10.2H, Lymphocytes # (Auto) 0.4L, Monocytes # (Auto) 0.6, Eosinophils # (Auto) 0.0, Basophils # (Auto) 0.0, Sodium Level 145, Potassium L evel 3.9, Chloride Level 104, Carbon Dioxide Level 28, Anion Gap 13, Blood Urea Nitrogen 43H, Creatinine 1.53H, Estimat Glomerular Filtration Rate 44, BUN/Creatinine Ratio 28, Glucose Level 210H, Calcium Level 8.5, Phosphorus Level 3.4, Magnesium Level 2.7H 01/20/20 11:11: Glucometer 184H 01/20/20 11:26: Glucometer 169H Microbiology 01/14/20 MRSA Screen - Final, Complete MRSA not isolated 01/12/20 Blood Culture - Final, Complete No growth A/P: Assessment/Dx: Pneumonia Type II GA Sepsis Acute renal failure Plan: Status post respiratory failure, gradually improving. On Vapotherm, FiO2 40 percent. Managed by primary care team Gram-positive bacteremia, MARCY was done on January 16, 2020 showing normal LV size and function, no vegetation on any valvular structure, heavily calcified mitral valve with moderate to severe mitral regurgitation, prosthetic valve in the aortic position functioning normally with no vegetation, tricuspid and pulmonic valve are normal, normal aorta Pneumonia, Streptococcus in the blood culture, managed by primary care team Sepsis, managed by primary care team and provider engagement executive. Type II GA, secondary to respiratory failure. Continue with conservative management History of bovine aortic valve replacement, MARCY was done on January 16, 2020, prosthetic valve is functioning normally. Congestive heart failure, acute on chronic left ventricular diastolic dysfunction, normal systolic function. Acute on chronic renal failure. Continue with hydration and monitor renal function Hypertension, monitor blood pressure Questionable history of second-degree Mobitz 1 block. Asymptomatic at this time. COVID exposure, tested negative Thank you for your consultation. Please call me if you have any questions. Dontrell Parikh MD, FACP, FACC, FSCAI, FHRS, CCDS Interventional Cardiology Cardiac Electrophysiology Vascular Medicine and Endovascular Interventions Focused Exam Time of Focused Exam: 20:00 Phyllis PARIKH MD Jan 20, 2020 17:22
--- NOTE | 2020-01-20 21:00 | NUR ---
RECEIVED CALL FROM PT'S . WOULD LIKE IT NOTED THAT SHE FEELS THAT GIVING THE PT HALDOL IS NOT IN HIS BEST INTEREST. SHE STATES, "I WOULD LIKE TO HAVE HIS AGITATION CONTROLLED USING SOMETHING OTHER THAN HALDOL." THIS RN ASSURES THAT HER CONCERNS WILL BE PASSED ON TO THE PHYSICIAN.
--- NOTE | 2020-01-20 21:02 | NUR ---
PT IS "FIGHTING" THE VAPOTHERM AT THIS TIME. PT CONTINUALLY PULLS VAPOTHERM CANULA OFF. THIS RN AND PCT AT BEDSIDE ATTEMPT TO REDIRECT PT MULTIPLE TIME WITH NO SUCCESS. THIS RN THEN PUTS PT ON BIPAP TO SEE IF HE WILL TOLERATE THIS BETTER. PT STILL ATTEMPTS TO PULL BIPAP MASK OFF. 02 SATS ARE MONITORED VIA VITALS MACHINE PT'S SATS REMAIN BETWEEN 91-95%. DURING AUSCULTATION OF HEART THIS RN NOTES THAT PT'S HEARTBEAT IS IRREGULAR AND PT'S LIPS APPEAR TO BE SLIGHTLY CYANOTIC. IMTIAZ NOTIFIED OF ALL THE ABOVE VIA PHONE. NEW ORDERS OBTAINED AT THIS TIME.
[2020-01-20 21:27] LABS: ABG BASE EXCESS 10.4 MMOL/L (-2.5-2.5); ABG OXYGEN SATURATION 93 % (94-100); ABG PCO2 46 MMHG (35-45); ABG PH 7.48 (7.37-7.43); ABG PO2 73 MMHG (79-93); ABG TCO2 35.8 MMOL/L (21.0-31.0); ALLENS TEST YES-POS
[2020-01-20 21:28] LABS: INSPIRED O2 NOT INDICATED; PATIENT TEMP 36.4; VENTILATOR NO
--- NOTE | 2020-01-20 21:38 | Diagnostic Imaging Report ---
EXAMINATION: Chest 1 view. HISTORY: Shortness of breath, atrial fibrillation. COMPARISON: 01/19/2020. FINDINGS: Median sternotomy wires are aligned. Aortic valve replacement is present. There is cervical spine fusion. There is new moderate pulmonary edema. No pleural effusion or pneumothorax. Heart is enlarged. IMPRESSION: New moderate pulmonary edema. Dictated by: Dictated on workstation # [id number]
--- NOTE | 2020-01-20 22:02 | NUR ---
IMTIAZ NOTIFIED OF ABG AND EKG RESULTS. THIS RN ALSO NOTIFIES IMTIAZ THAT OF PT REQUESTS NO HALDOL BE GIVEN. ORDERS TO CHANGE CURRENT ATIVAN DOSE AND TIME OBTAINED AT THIS TIME.
--- NOTE | 2020-01-20 22:30 | NUR ---
PT RESTING PEACEFULLY AFTER MORPHINE GIVEN. THIS RN SWITCHES PT FROM VAPOTHER TO BIPAP AT THIS TIME. PT TOLERATED WELL. WILL CONTINUE TO MONITOR.
--- NOTE | 2020-01-20 23:30 | NUR ---
PT CONTINUES TO REST PEACEFULLY ON THE BIPAP AT THIS TIME. NO S/S OF DISTRESS NOTED. WILL CONTINUE TO MONITOR.
[2020-01-21] VITALS (12 sets, daily range): BP systolic 121–161; BP diastolic 60–95
[2020-01-21] MEDS: methylPREDNISolone 40 MG/ML (Solu-MEDROL) VIAL IV SCH ×5 (00:57→23:50)
[2020-01-21] MEDS: inSUlin ASPART (NovoLOG) 1 UNIT/0.01 ML (CHARGE PER UNIT) SC SCH ×5 (00:57→23:43)
[2020-01-21] MEDS: PIPERACILLIN/TAZO 4.5 GM/NS 100 ML IV SCH ×6 (00:58→17:37)
[2020-01-21] MEDS: RT-ALBUTEROL/IPRATROPIUM 3 ML (DUONEB) VIAL INH SCH ×6 (01:11→20:59)
[2020-01-21] MEDS: LORazepam INJ 2 MG/ML (ATIVAN) VIAL IVP PRN ×4 (03:29→23:54)
[2020-01-21] MEDS: morphine INJ 4 MG/ML 1 ML (VIAL/SYRINGE) IVP PRN ×2 (03:37→10:26)
--- NOTE | 2020-01-21 04:35 | NUR ---
PCT NOTIFIED THIS RN THAT PT'S ABDOMINAL RETRACTIONS WERE WORSENING. UPON ASSESSMENT THIS RN NOTES MULTIPLE 15-30SEC APNEIC EPISODES AND WILL NOT LEAVE BIPAP IN PLACE. PRN MEDS HAVE ALREADY BEEN GIVEN.
--- NOTE | 2020-01-21 04:41 | NUR ---
RT NOTIFIED OF PT'S RESPIRATORY CONDITION AT THIS TIME.
--- NOTE | 2020-01-21 04:43 | NUR ---
RT AT BEDSIDE ASSESSING PT AT THIS TIME. Dontrell RODRIGUES RN, THIS RN, AND PCT ESMER AT BEDSIDE ATTEMPTING TO REDIRECT PT SO THAT RT CAN ADJUST BIPAP MASK.
--- NOTE | 2020-01-21 04:45 | NUR ---
PT NOT TOLERATING BIPAP WELL AND SEEMS TO BE HOLDING MOUTH SHUT PREVENTING INSPIRATORY PRESSURE FROM OPENING AIRWAY. BIPAP SETTINGS INCREASED TO 20/10 RR15 BY RT AT THIS TIME TO ATTEMPT TO COMBAT PT HOLDING MOUTH CLOSED.
--- NOTE | 2020-01-21 04:51 | NUR ---
IMTIAZ NOTIFIED OF CHANGE IN PT'S CONDITION, CHEST XRAY RESULTS, AND NEW BIPAP SETTINGS AT THIS TIME. ORDERS TO MOVE PT TO UNIT FOR HIGHER LEVEL OF CARE.
--- NOTE | 2020-01-21 05:00 | NUR ---
[employer]BER [employer] OPERATOR NOTIFIED OF NEED FOR BED IN ICU AT THIS TIME.
[2020-01-21 05:27] LABS: BASOPHILS % (AUTO) 0 % (0-10); EOSINOPHILS % (AUTO) 0 % (0-10); HEMATOCRIT 37 % (40-54); LYMPHOCYTES # (AUTO) 0.5 X 10^3 (1.0-4.0); LYMPHOCYTES % (AUTO) 5 % (12-44); MEAN CORPUSCULAR HEMOGLOBIN 30 PG (25-34); MEAN CORPUSCULAR HGB CONC 32 G/DL (32-36); MEAN CORPUSCULAR VOLUME 93 FL (80-99); MEAN PLATELET VOLUME 10.5 FL (7.4-10.4); MONOCYTES # (AUTO) 0.4 X 10^3 (0.0-1.0); MONOCYTES % (AUTO) 4 % (0-12); NEUTROPHILS # (AUTO) 9.6 X 10^3 (1.8-7.8); NEUTROPHILS % (AUTO) 91 % (42-75); PLATELET COUNT 229 10^3/uL (130-400); WHITE BLOOD COUNT 10.5 10^3/uL (4.3-11.0)
[2020-01-21] MEDS ORDERED: FUROSEMIDE 40 MG/4 ML INJ (LASIX) IVP ONE (05:30)
--- NOTE | 2020-01-21 05:40 | NUR ---
pt transferred to icu at this time. this rn to assume care. pt resting comfortably and vitals stable. sitter at bedside. will continue to monitor
[2020-01-21 05:46] LABS: POTASSIUM 3.8 MMOL/L (3.6-5.0)
[2020-01-21 05:47] LABS: CALCIUM 8.8 MG/DL (8.5-10.1)
--- NOTE | 2020-01-21 05:47 | Pulmonary Progress Note ---
Subjective Time Seen by a Provider: 05:42 Subjective/Events-last exam Pt is currently sedated on BiPAP. Sepsis Event Evaluation Height, Weight, BMI Height: '" Weight: lbs. oz. kg; 31.28 BMI Method: Focused Exam Time of Focused Exam: 20:00 Exam Exam Vital Signs Date Time Temp Pulse Resp B/P (MAP) Pulse Ox O2 Delivery O2 Flow Rate FiO2 01/21/20 05:32 36.3 98 12 146/85 (105) 98 NIV Bilevel 24.00 01/21/20 04:27 35.7 91 12 123/60 (81) 93 NIV Bilevel 01/21/20 01:11 88 14 100 24.00 01/20/20 23:10 36.6 97 14 136/67 (90) 95 NIV Bilevel 01/20/20 19:52 36.4 96 20 127/88 (101) 94 Vapotherm 30.00 40.00 01/20/20 18:32 92 Vapotherm 30.00 40 01/20/20 15:11 36.2 98 18 162/73 (102) 97 Vapotherm 30.00 40.00 01/20/20 13:54 87 Vapotherm 30.00 40 01/20/20 11:27 36.8 80 16 126/58 (80) 95 Vapotherm 30.00 40.00 01/20/20 10:03 97 Vapotherm 30.00 40 01/20/20 07:30 36.6 98 16 141/65 (90) 97 Vapotherm 30.00 40.00 01/20/20 06:42 97 Vapotherm 30.00 40 I & O 01/21/20 07:00 Intake Total 0 ml Output Total 120 ml Balance -120 ml Height & Weight Height: '" Weight: lbs. oz. kg; 31.28 BMI Method: General Appearance: WD/WN, Other (Pt is currenlty sedated. ) HEENT: Moist Mucous Membranes, Other (hard of hearing) Neck: Normal Inspection, Supple Respiratory: Accessory Muscle Use, Decreased Breath Sounds, Other Cardiovascular: Systolic Murmur, Other (irregular) Capillary Refill: Less Than 3 Seconds Peripheral Pulses: 2+ Dorsalis Pedis (R), 2+ Left Dors-Pedis (L) Extremity: Normal Capillary Refill, Pedal Edema Neurologic/Psychiatric: No Facial Droop; Other (CONFUSION, WEAKNESS, AGITATED) Skin: Normal Color, Warm/Dry Results Lab Laboratory Tests 01/20/20 05:35 01/21/20 05:15 Assessment/Plan Assessment/Plan Acute respiratory failure -transferred to ICU this AM -I suspect respiratory distress was mostly from agitation secondary to Vapotherm and BiPAP. -Labs, ABG, and vitals reviewed -Last ABG shows respiratory alkalosis. Repeat ABG and will probably need to decrease BiPAP settings. -Currently pt is sedated from meds -Once pt is awake and fighting change to high flow NC to keep sp02 90- 94% -Lasix -Repeat CXR, BNP, PCT and ABG -Labs pending -BiPAP PRN CHF with pulmonary edema -Continue Lasix Severe sepsis with Strep -Currently on Zosyn -Repeat COVID testing- Negative -Mckeon cultures pending Anxiety/agitation -Risperadol -Haldol PRN, Morphine PRN Metabolic acidosis-- resolved NSTEMI -Cardiology following Acute on chronic renal failure -Monitor Bovine Aortic valve Replacement -No signs of endocarditits noted on MARCY NIDDMII MYKE JACKSON DO Jan 21, 2020 05:47
[2020-01-21 05:51] LABS: CREATININE SERUM 1.71 MG/DL (0.60-1.30); PHOSPHORUS 2.9 MG/DL (2.3-4.7)
[2020-01-21 05:54] LABS: MAGNESIUM 2.9 MG/DL (1.6-2.4)
[2020-01-21] MEDS: MAGNESIUM 1 GM/100 ML IVPB 100 ML IV SCH (06:21)
[2020-01-21] MEDS: POTASSIUM CL 10MEQ/50ML IVPB 50 ML IV SCH (06:21)
[2020-01-21] MEDS: KCL 20 MEQ TAB (K-DUR) PO SCH ×2 (06:21)
[2020-01-21 06:22] LABS: ABG BASE EXCESS 10.8 MMOL/L (-2.5-2.5); ABG OXYGEN SATURATION 97 % (94-100); ABG PCO2 41 MMHG (35-45); ABG PH 7.53 (7.37-7.43); ABG PO2 85 MMHG (79-93); ABG TCO2 35.8 MMOL/L (21.0-31.0)
[2020-01-21 06:28] LABS: ALLENS TEST YES-POS; INSPIRED O2 24%; PATIENT TEMP 36.1; VENTILATOR NO
[2020-01-21] MEDS: FLUTICASONE 110 MCG INHALER (FLOVENT) 12 GM INH SCH ×2 (06:40→17:58)
--- NOTE | 2020-01-21 06:56 | Diagnostic Imaging Report ---
INDICATION: Shortness of air COMPARISON: 01/20/2020 Sternal wires midline. Elevation of the right diaphragm present. There is cardiomegaly. There is some vascular congestion. Pulmonary opacities bilaterally substantially improved from the prior. Unclear if this is resolving edema or pneumonia. Correlate clinically. No effusion or pneumothorax. IMPRESSION: Substantial clearing of the chest with decreased vascular distention and likely improvements in pulmonary edema resolved. Resolving pneumonia could not be excluded. There is no adverse development or convincing pleural fluid. Dictated by: Dictated on workstation # [id number]
[2020-01-21] MEDS: LACTOBACILLUS ACIDOPHILUS (PROBIOTIC) CAPSULE PO SCH ×3 (08:07→17:38)
[2020-01-21] MEDS: risperiDONE 1 MG (RisperDAL) TAB PO SCH ×3 (08:07→23:38)
--- NOTE | 2020-01-21 08:46 | Progress Note ---
Subjective Subjective Date Seen by Provider: Jan 21, 2020 Time Seen by Provider: 08:20 NURSING STAFF REPORTS THAT THE PATIENT HAD BEEN ON 4TH FLOOR, AND WAS TRANSFERRED BACK UP TO THE ICU DUE TO RESPIRATORY DISTRESS AND SEVERE AGITATION. HE WAS ON BIPAP AND THIS WAS WEANED DOWN TO 5 LITERS HIGH FLOW NASAL CANULA. NURSING STAFF REPORTS THAT THEY DO NOT FEEL IF HE CONTINUES TO NEED TO BE IN THE ICU. Review of Systems General: Fatigue, Malaise HEENT: No Head Aches Pulmonary: Dyspnea; No Cough Cardiovascular: No: Chest Pain, Palpitations Gastrointestinal: Other (DISTENDED ABDOMEN); No: Nausea, Abdominal Pain Genitourinary: No Dysuria Musculoskeletal: No: back pain Neurological: Weakness, Confusion All Other Systems Reviewed All Other Systems Reviewed: Yes Objective Exam Vital Signs Vital Signs - First Documented 01/15/20 01/15/20 01/15/20 00:00 02:56 04:00 Temp 36.7 Pulse 67 Resp 23 B/P (MAP) 100/73 (82) Pulse Ox 97 O2 Delivery NIV Bilevel O2 Flow Rate 30.00 FiO2 30 Capillary Refill : Less Than 3 Seconds General Appearance: WD/WN, Other (PT WEAK, PT CONFUSED, OBTUNDED) Eyes: Bilateral Eye PERRL HEENT: Moist Mucous Membranes, Other (hard of hearing) Neck: Normal Inspection, Supple Respiratory: Accessory Muscle Use, Decreased Breath Sounds, Other Cardiovascular: Systolic Murmur, Other (irregular) Gastrointestinal: Normal Bowel Sounds, Soft Extremity: Normal Capillary Refill, Pedal Edema Neurologic/Psychiatric: No Facial Droop; Other (CONFUSION, WEAKNESS, AGITATED) Skin: Normal Color, Warm/Dry Results Lab Laboratory Tests 01/20/20 11:11: Glucometer 184H 01/20/20 11:26: Glucometer 169H 01/20/20 17:36: Glucometer 208H 01/20/20 21:20: Blood Gas Puncture Site LEFT RADIAL, Blood Gas Patient Temperature 36.4, Arterial Blood pH 7.48H, Arterial Blood Partial Pressure CO2 46H, Arterial Blood Partial Pressure O2 73L, Arterial Blood HCO3 34H, Arterial Blood Total CO2 35.8H , Arterial Blood Oxygen Saturation 93L, Arterial Blood Base Excess 10.4H, Ramses Test YES-POS, Blood Gas Ventilator Setting NO, Blood Gas Inspired Oxygen NOT INDICATED 01/20/20 23:14: Glucometer 214H 01/21/20 05:05: Glucometer 195H 01/21/20 05:15: White Blood Count 10.5, Red Blood Count 4.01L, Hemoglobin 12.0L, Hematocrit 37L, Mean Corpuscular Volume 93, Mean Corpuscular Hemoglobin 30, Mean Corpuscular Hemoglobin Concent 32, Red Cell Distribution Width 16.0H, Platelet Count 229, Mean Platelet Volume 10.5H, Neutrophils (%) (Auto) 91H, Lymphocytes (%) (Auto) 5L, Monocytes (%) (Auto) 4, Eosinophils (%) (Auto) 0, Basophils (%) (Auto) 0, Neutrophils # (Auto) 9.6H, Lymphocytes # (Auto) 0.5L, Monocytes # (Auto) 0.4, Eosinophils # (Auto) 0.0, Basophils # (Auto) 0.0, Sodium Level 148H, Potassium Level 3.8, Chloride Level 104, Carbon Dioxide Level 31, Anion Gap 13, Blood Urea Nitrogen 49H, Creatinine 1.71H, Estimat Glomerular Filtration Rate 38, BUN/Creatinine Ratio 29, Glucose Level 213H, Calcium Level 8.8, Phosphorus Level 2.9, Magnesium Level 2.9H, B-Type Natriuretic Peptide 296.0H, Procalcitonin 0.05 01/21/20 06:03: Blood Gas Puncture Site RIGHT RADIAL, Blood Gas Patient Temperature 36.1, Arterial Blood pH 7.53H, Arterial Blood Partial Pressure CO2 41, Arterial Blood Partial Pressure O2 85, Arterial Blood HCO3 35H, Arterial Blood Total CO2 35.8H, Arterial Blood Oxygen Saturation 97, Arterial Blood Base Excess 10.8H, Ramses Test YES-POS, Blood Gas Ventilator Setting NO, Blood Gas Inspired Oxygen 24% Microbiology 01/14/20 MRSA Screen - Final, Complete MRSA not isolated 01/12/20 Blood Culture - Final, Complete No growth Assessment/Plan Assessment/Plan Admission Dx RESPIRATORY DISTRESS LYMPHOCYTOSIS SEPSIS PNEUMONIA ACUTE ON CHRONIC RENAL INSUFFICIENCY ELEVATED TROPONIN ANEMIA HYPERTENSION DIABETES MELLITUS HARD OF HEARING RESPIRATORY DISTRESS WITH PNEUMONIA ON CXR - ON IV ZOSYN, - ON HIGH FLOW OXYGEN VIA NASAL CANNULA, PT IS ON STEROIDS - CONTINUE WITH SUPPORTIVE CARE LYMPHOCYTOSIS SEPSIS - SLIGHTLY IMPROVED - CONTINUE TO MONITOR ACUTE ON CHRONIC RENAL INSUFFICIENCY - SUPPORTIVE CARE WITH FLUIDS - RENAL FUNCTION IMPROVED. ELEVATED TROPONIN - DEFER TO CARDIOLOGY - WORK-UP PENDING. ANEMIA - CONTINUE TO MONITOR. HYPERTENSION - STABLE - CONTINUE TO MONITOR DIABETES MELLITUS - PT ON SLIDING SCALE PT NEEDS THERAPY - I HAVE DISCUSSED WITH THE PATIENT'S DTR THE NEED FOR HIM TO GO TO THE [facility] ON DISCHARGE. HIS WANTS HIM TO GO TO SWING BED STATUS AT [facility]. COVID-19 NEGATIVE. Problems: (1) Acute respiratory failure with hypoxia Assessment & Plan: due to pneumonia and pulmonary congestion -improved (2) Sepsis (3) Generalized weakness (4) Acute on chronic kidney failure (5) DMII (diabetes mellitus, type 2) (6) HTN (hypertension) Admission Dx RESPIRATORY DISTRESS LYMPHOCYTOSIS SEPSIS PNEUMONIA ACUTE ON CHRONIC RENAL INSUFFICIENCY ELEVATED TROPONIN ANEMIA HYPERTENSION DIABETES MELLITUS HARD OF HEARING RESPIRATORY DISTRESS WITH PNEUMONIA ON CXR - ON IV ZOSYN, CONTINUE WITH SERIAL CHEST XRAYS - ON BIPAP, ON STEROIDS, DISCUSSED WITH HIS DTR - WILL HAVE THEM PLACE NG TUBE TO DECREASE GASTRIC DISTENTION AHND HOPEFULLY EASE SOME OF THE TROUBLE WITH BREATHING. - CONTINUE WITH SUPPORTIVE CARE - FAMILY TO REPEAT DISCUSSION OF THE PATIENT'S CODE STATUS. LYMPHOCYTOSIS SEPSIS - SLIGHTLY IMPROVED - CONTINUE TO MONITOR ACUTE ON CHRONIC RENAL INSUFFICIENCY - SUPPORTIVE CARE WITH FLUIDS - RENAL FUNCTION IMPROVED. ELEVATED TROPONIN - DEFER TO CARDIOLOGY - WORK-UP PENDING. ANEMIA - CONTINUE TO MONITOR. HYPERTENSION - STABLE - CONTINUE TO MONITOR DIABETES MELLITUS - PT ON SLIDING SCALE COVID-19 NEGATIVE. Clinical Quality Measures Admission Status Admission Dx RESPIRATORY DISTRESS LYMPHOCYTOSIS SEPSIS PNEUMONIA ACUTE ON CHRONIC RENAL INSUFFICIENCY ELEVATED TROPONIN ANEMIA HYPERTENSION DIABETES MELLITUS HARD OF HEARING RESPIRATORY DISTRESS WITH PNEUMONIA ON CXR - ON IV ZOSYN, CONTINUE WITH SERIAL CHEST XRAYS - ON BIPAP, ON STEROIDS, DISCUSSED WITH HIS DTR - WILL HAVE THEM PLACE NG TUBE TO DECREASE GASTRIC DISTENTION AHND HOPEFULLY EASE SOME OF THE TROUBLE WITH BREATHING. - CONTINUE WITH SUPPORTIVE CARE - FAMILY TO REPEAT DISCUSSION OF THE PATIENT'S CODE STATUS. LYMPHOCYTOSIS SEPSIS - SLIGHTLY IMPROVED - CONTINUE TO MONITOR ACUTE ON CHRONIC RENAL INSUFFICIENCY - SUPPORTIVE CARE WITH FLUIDS - RENAL FUNCTION IMPROVED. ELEVATED TROPONIN - DEFER TO CARDIOLOGY - WORK-UP PENDING. ANEMIA - CONTINUE TO MONITOR. HYPERTENSION - STABLE - CONTINUE TO MONITOR DIABETES MELLITUS - PT ON SLIDING SCALE COVID-19 NEGATIVE. DVT/VTE Risk/Contraindication: Risk Factor Score Per Nursin RFS Level Per Nursing on Admit: 3=High NATHANIEL OLIVA MD Jan 21, 2020 08:46
[2020-01-21] MEDS: FUROSEMIDE 40 MG/4 ML INJ (LASIX) IVP SCH (08:52)
--- NOTE | 2020-01-21 08:54 | NUR ---
This RN spoke with Dr. Barrientos regarding 0900 Lasix order. Pt received 40 of lasix at 0530 as a one time order. Pt labs elevated. Dr. Barrientos gave order to hold 0900 lasix. This RN non-admin medication per
--- NOTE | 2020-01-21 09:35 | Cardiology Progress Note ---
Subjective Date Seen by Provider: Jan 21, 2020 Time Seen by Provider: 09:34 Subjective/Events-last exam Patient asleep in bed, appears to be in NAD. Review of Systems General: No Chills, No Night Sweats, No Fatigue, No Malaise, No Appetite, No Other HEENT: No Head Aches, No Visual Changes, No Eye Pain, No Ear Pain, No Dysphasia, No Sinus Congestion, No Post Nasal Drip, No Sore Throat, No Other Pulmonary: No Dyspnea, No Cough, No Pleuritic Chest Pain, No Other Cardiovascular: No: Chest Pain, Palpitations, Orthopnea, Paroxysmal Noc. Dyspnea, Edema, Lt Headedness, Other Focused Exam Time of Focused Exam: 20:00 Objective-Cardiology Exam Last Set of Vital Signs Vital Signs 01/21/20 05:40 FiO2 24 Capillary Refill : Less Than 3 Seconds I&O Intake and Output 01/21/20 00:00 Intake Total 0 ml Output Total 270 ml Balance -270 ml Intake Oral 0 ml Output Urine Total 270 ml # Voids 4 General: Alert, Oriented X3, Cooperative HEENT: Atraumatic, PERRLA Neck: Supple, No JVD, No Thyromegaly Lungs: Normal Air Movement, Other (Bilateral rhonchi) Heart: Regular Rate, Normal S1, Normal S2 Abdomen: Normal Bowel Sounds, Soft, No Tenderness, No Hepatosplenomegaly, No Masses Extremities: No Clubbing, No Cyanosis, No Edema, Normal Pulses, No Tenderness/Swelling Skin: No Rashes, No Breakdown, No Significant Lesion Neuro: Normal Speech, Normal Tone, Sensation Intact Psych/Mental Status: Mood NL Results Lab Laboratory Tests 01/21/20 05:15 A/P-Cardiology Admission Diagnosis Pneumonia Type II AK Sepsis Acute renal failure Assessment/Plan Status post respiratory failure, improving, managed by primary care team Gram-positive bacteremia, MARCY was done on January 16, 2020 showing normal LV size and function, no vegetation on any valvular structure, heavily calcified mitral valve with moderate to severe mitral regurgitation, prosthetic valve in the aortic position functioning normally with no vegetation, tricuspid and pulmonic valve are normal, normal aorta Pneumonia, Streptococcus in the blood culture, managed by primary care team Sepsis, managed by primary care team and training assistant. Type II AK, secondary to respiratory failure. Continue with conservative management History of bovine aortic valve replacement, MARCY was done on January 16, 2020, prosthetic valve is functioning normally. Congestive heart failure, acute on chronic left ventricular diastolic dysfunction, normal systolic function. Acute on chronic renal failure. Continue with hydration and monitor renal function Hypertension, monitor blood pressure Questionable history of second-degree Mobitz 1 block. Asymptomatic at this time. COVID exposure, tested negative Patient was seen and evaluated with Ember, examination performed, management plan was discussed, agree with the current scribed note, I made few changes to the note using Italic font Patient is laying down in bed, sleepy, arousable, still confused On nasal cannula at this time Bilateral rhonchi, Gram-positive bacteremia with Streptococcus, no signs of endocarditis Still having significant hypoxemia waxing and waning in addition to anxiety on the BiPAP, managed by primary care team Clinical Quality Measures DVT/VTE Risk/Contraindication: Risk Factor Score Per Nursin RFS Level Per Nursing on Admit: 3=High EBMER ORNELAS Jan 21, 2020 9:35 am WHIT ESCALANTE MD Jan 21, 2020 12:57 pm
--- NOTE | 2020-01-21 09:47 | Physical Therapy Progress Note ---
Therapy Progress Note No PT per Dr. Barrientos due to patient current status. Physician is aware of need for new orders when deemed appropriate. TORI OLIVAS PT Jan 21, 2020 09:47
--- NOTE | 2020-01-21 12:03 | NUR ---
CM DISCHARGE PLANNING: Visited with patient's daughter Arely askew then his reached out to also visit about his POC. Dr. Barrientos has visited with the patient's Gwen. Gwen has indicated that she would like to have a referral sent to [facility]. Referral faxed as requested. We also visited about the possibility of needing short term [facility] home placement. Gwen has indicated that she would like a referral sent to [facility] if Jonnathan is unable to go to [facility] in [place]. Awaiting determination.
--- NOTE | 2020-01-21 12:55 | NUR ---
PATIENT TO ROOM 409 VIA BED ACCOMPANIED BY PIANO MAKER CALLIE AND PCT HEIKE. PATIENT HAS A SITTER(HEIKE) AT BEDSIDE. VITALS TAKEN. PATIENT DRESSED IN GOWN. WILL CONTINUE TO MONITOR.
--- NOTE | 2020-01-21 13:20 | Occupational Ther Daily Note ---
OT Current Status-Daily Note Subjective Pt. has sitter in room. Sitter/nurse report that pt. has had sedation medication, but okay to attempt treatment. No pain reported. Appearance Pt. in bed asleep. Does awaken with cueing. Mental Status/Objective Patient Orientation: Unable to Assess Attachments: IV, Oxygen, Telemetry ADL-Treatment Therapy Code Descriptions/Definitions Functional [place] Measure: 0=Not Assessed/NA 4=Minimal Assistance 1=Total Assistance 5=Supervision or Setup 2=Maximal Assistance 6=Modified [place] 3=Moderate Assistance 7=Complete IndependenceSCALE: Activities may be completed with or without assistive devices. 4-Nvkedjsmal-ksfojtc completes the activity by him/herself with no assistance from a helper. 5-Set-up or Clean-up Assistance-helper sets up or cleans up; patient completes activity. [place] assists only prior to or following the activity. 4-Supervision or Touching Assistance-helper provides verbal cues and/or touching/steadying and/or contact guard assistance as patient completes activity. Assistance may be provided throughout the activity or intermittently. 3-Partial/Moderate Assistance-helper does LESS THAN HALF the effort. [place] lifts, holds or supports trunk or limbs, but provides less than half the effort. 2-Substantial/Maximal Assistance-helper does MORE THAN HALF the effort. [place] lifts or holds trunk or limbs and provides more than half the effort. 1-Mxqsrxfui-uvxuxj does ALL the effort. Patient does none of the effort to complete the activity. Or, the assistance of 2 or more helpers is required for the patient to complete the activity. If activity was not attempted, code reason: 7-Patient Refused. 9-Not Applicable-not attempted and the patient did not perform the activity before the current illness, exacerbation or injury. 10-Not Attempted due to Environmental Limitations-(lack of equipment, weather restraints, etc.). 88-Not Attempted due to Medical Conditions or Safety Concerns. Other Treatment Pt. asleep but does wake up. Pt. does participate briefly in UE AROM, but becomes distracted with IV lines. Pt. is handed warm washcloth and cued to wash face. Pt. attempts to, but stops. OT washes face for him. Pt. closes eyes and says, "no" when asked if he can participate more. Pt. rolls self over. Pt. is m klaus comfortable with blankets and lines. All needs met and sitter in room when OT left. Education OT Patient Education: Correct positioning, Exercise program Teaching Recipient: Patient Teaching Methods: Demonstration, Discussion Response to Teaching: Reinforcement Needed OT Yard Assistant Goals Prison Goals Time Frame: Jan 22, 2020 Eating (QC): 6 Oral Hygiene (QC): 6 Toileting Hygiene (QC): 6 Shower/Bathe Self (QC): 4 Upper Body Dressing (QC): 5 Lower Body Dressing (QC): 5 On/Off Footwear (QC): 5 Additional Goals: 1-Demonstrate ADL Tasks, 2-Verbalize Understanding, 3- ImproveStrength/Jean 1=Demonstrate adherence to instructed precautions during ADL tasks. 2=Patient will verbalize/demonstrate understanding of assistive devices/modifications for ADL. 3=Patient will improve strength/tolerance for activity to enable patient to perform ADL's. OT Education/Plan Problem List/Assessment Assessment: Decreased Activ Tolerance, Decreased Safety Aware, Decreased UE Strength, Dependent Transfers, Impaired Bed Mobility, Impaired I ADL's, Impaired Self-Care Skills Discharge Recommendations Plan/Recommendations: Continue POC Therapy Discharge Recommendati: 24 Hour Supervision, Post Acute OT Treatment Plan/Plan of Care Treatment,Training & Education: Yes Patient would benefit from OT for education, treatment and training to promote independence in ADL's, mobility, safety and/or upper extremity function for ADL's. Plan of Care: ADL Retraining, Functional Mobility, UE Funct Exercise/Act Treatment Duration: Jan 29, 2020 Frequency: 5 times per week Estimated Hrs Per Day: .25 hour per day Agreement: Yes Rehab Potential: Fair Time/GCodes Start Time: 09:20 Stop Time: 09:30 Total Time Billed (hr/min): 10 Billed Treatment Time 1, EX AMANDA ARAUJO OT Jan 21, 2020 13:20
--- NOTE | 2020-01-21 16:42 | NUR ---
Called [facility] to get an update on acceptance/denial. Message left will f/u with them tomorrow morning.
[2020-01-22] VITALS: BP 159/77
[2020-01-22] MEDS: morphine INJ 4 MG/ML 1 ML (VIAL/SYRINGE) IVP PRN ×4 (01:07→18:32)
[2020-01-22] MEDS: PIPERACILLIN/TAZO 4.5 GM/NS 100 ML IV SCH ×6 (01:23→17:21)
[2020-01-22] MEDS: RT-ALBUTEROL/IPRATROPIUM 3 ML (DUONEB) VIAL INH SCH ×6 (01:57→21:39)
[2020-01-22 03:45] VITALS: BP 128/80
--- NOTE | 2020-01-22 05:05 | Diagnostic Imaging Report ---
Indication: Sepsis Portable chest 3:47 AM There is a patchy wedge-shaped infiltrate in the right upper lobe. There may be a patchy wedge-shaped infiltrate in the mid left lung and left lung base. There is no effusion or pneumothorax IMPRESSION: Postoperative changes from a median sternotomy. Patchy infiltrates of the lungs consistent with pneumonia. Dictated by: Dictated on workstation # [id number]
[2020-01-22] MEDS: inSUlin ASPART (NovoLOG) 1 UNIT/0.01 ML (CHARGE PER UNIT) SC SCH ×4 (05:21→23:39)
[2020-01-22] MEDS: methylPREDNISolone 40 MG/ML (Solu-MEDROL) VIAL IV SCH ×4 (06:18→23:39)
--- NOTE | 2020-01-22 07:24 | Pulmonary Progress Note ---
Subjective Time Seen by a Provider: 07:18 Subjective/Events-last exam No complications noted. Sepsis Event Evaluation Height, Weight, BMI Height: '" Weight: lbs. oz. kg; 31.28 BMI Method: Focused Exam Time of Focused Exam: 20:00 Exam Exam Vital Signs Date Time Temp Pulse Resp B/P (MAP) Pulse Ox O2 Delivery O2 Flow Rate FiO2 01/22/20 03:45 88 19 128/80 (96) 94 NIV Bilevel 01/22/20 02:14 77 23 93 30.00 01/22/20 01:57 89 Nasal Cannula 5.00 01/22/20 00:00 81 16 159/77 (104) 91 High Flow N/C 6.00 01/21/20 21:00 91 Nasal Cannula 5.00 01/21/20 19:55 High Flow N/C 5.00 01/21/20 19:06 36.8 93 15 161/73 (102) 97 High Flow N/C 6.00 01/21/20 18:04 99 6.00 01/21/20 17:58 94 Nasal Cannula 5.00 01/21/20 15:14 36.0 108 15 142/71 (94) 99 High Flow N/C 6.00 01/21/20 14:30 97 Nasal Cannula 5.00 01/21/20 12:00 36.2 85 18 149/89 (109) 98 High Flow N/C 5.00 01/21/20 12:00 95 High Flow N/C 5.00 01/21/20 10:45 94 Nasal Cannula 5.00 01/21/20 10:00 77 12 126/82 (97) 95 High Flow N/C 5.00 01/21/20 09:00 92 13 149/89 (109) 96 High Flow N/C 5.00 01/21/20 08:21 High Flow N/C 5.00 01/21/20 08:01 95 High Flow N/C 6.00 01/21/20 08:00 87 14 148/92 (110) 97 High Flow N/C 6.00 01/21/20 08:00 36.6 I & O 01/22/20 07:00 Intake Total 100 ml Balance 100 ml Height & Weight Height: '" Weight: lbs. oz. kg; 31.28 BMI Method: General Appearance: WD/WN, Other (PT WEAK, PT CONFUSED, OBTUNDED) HEENT: Moist Mucous Membranes, Other (hard of hearing) Neck: Normal Inspection, Supple Respiratory: Accessory Muscle Use, Decreased Breath Sounds, Other Cardiovascular: Systolic Murmur, Other (irregular) Capillary Refill: Less Than 3 Seconds Peripheral Pulses: 2+ Dorsalis Pedis (R), 2+ Left Dors-Pedis (L) Extremity: Normal Capillary Refill, Pedal Edema Neurologic/Psychiatric: No Facial Droop; Other (CONFUSION, WEAKNESS, AGITATED) Skin: Normal Color, Warm/Dry Results Lab Laboratory Tests 01/21/20 05:15 Assessment/Plan Assessment/Plan Acute respiratory failure -BiPAP -- D/C -NC and titrate for Sp02 90-92%. CHF with pulmonary edema - Lasix Severe sepsis with Strep -Currently on Zosyn -Repeat COVID testing- Negative -Mckeon cultures pending Anxiety/agitation -Risperadol -Haldol PRN, Morphine PRN Metabolic acidosis-- resolved NSTEMI -Cardiology following Acute on chronic renal failure -Monitor Bovine Aortic valve Replacement -No signs of endocarditits noted on MARCY NIDDMII MYKE JACKSON DO Jan 22, 2020 07:24
[2020-01-22] MEDS: FLUTICASONE 110 MCG INHALER (FLOVENT) 12 GM INH SCH ×2 (07:33→18:04)
[2020-01-22] MEDS: LORazepam INJ 2 MG/ML (ATIVAN) VIAL IVP PRN ×3 (07:42→18:27)
[2020-01-22] MEDS: KCL 20 MEQ TAB (K-DUR) PO SCH (07:45)
[2020-01-22 08:00] VITALS: BP 169/89
[2020-01-22] MEDS: LACTOBACILLUS ACIDOPHILUS (PROBIOTIC) CAPSULE PO SCH ×3 (08:00→17:52)
--- NOTE | 2020-01-22 08:42 | Cardiology Progress Note ---
Subjective Date Seen by Provider: Jan 22, 2020 Time Seen by Provider: 08:41 Subjective/Events-last exam Patient asleep in bed, NAD. Review of Systems General: Other (unable to provide review of systems) Focused Exam Time of Focused Exam: 20:00 Objective-Cardiology Exam Last Set of Vital Signs Vital Signs 01/21/20 01/22/20 01/22/20 05:40 08:00 08:15 Temp 36.0 Pulse 93 Resp 15 B/P (MAP) 169/89 (115) Pulse Ox 90 O2 Delivery High Flow N/C O2 Flow Rate 3.00 FiO2 24 Capillary Refill : Less Than 3 Seconds I&O Intake and Output 01/22/20 00:00 Intake Total 100 ml Balance 100 ml Intake Oral 100 ml # Voids 5 # Urine Diapers 1 General: Alert, Oriented X3, Cooperative HEENT: Atraumatic, PERRLA Neck: Supple, No JVD, No Thyromegaly Lungs: Clear to Auscultation, Normal Air Movement Heart: Regular Rate, Normal S1, Normal S2, Other (systolic murmur at the left sternal border) Abdomen: Normal Bowel Sounds, Soft, No Tenderness, No Hepatosplenomegaly, No Masses Extremities: No Clubbing, No Cyanosis, No Edema, Normal Pulses, No Tenderness/Swelling Skin: No Rashes, No Breakdown, No Significant Lesion Neuro: Normal Speech, Normal Tone, Sensation Intact Psych/Mental Status: Mood NL Results Lab Laboratory Tests Test 01/21/20 10:40 01/21/20 18:00 01/21/20 23:42 01/22/20 05:20 Range/Units Glucometer 200 H 173 H 192 H 190 H 70-110 MG/DL A/P-Cardiology Admission Diagnosis Pneumonia Type II MT Sepsis Acute renal failure Assessment/Plan Agitation, currently sedated. Sleeping. Probably due to hypoxemia. Managed by primary care team Status post respiratory failure, improving, managed by primary care team Gram-positive bacteremia, MARCY was done on January 16, 2020 showing normal LV size and function, no vegetation on any valvular structure, heavily calcified mitral valve with moderate to severe mitral regurgitation, prosthetic valve in the aortic position functioning normally with no vegetation, tricuspid and pulmonic valve are normal, normal aorta Pneumonia, Streptococcus in the blood culture, managed by primary care team Sepsis, managed by primary care team and cyber special agent. Type II MT, secondary to respiratory failure. Continue with conservative management History of bovine aortic valve replacement, MARCY was done on January 16, 2020, prosthetic valve is functioning normally. Congestive heart failure, acute on chronic left ventricular diastolic dysfunction, normal systolic function. Acute on chronic renal failure. Continue to monitor renal function Hypertension, monitor blood pressure Questionable history of second-degree Mobitz 1 block. Asymptomatic at this time. COVID exposure, tested negative Patient was seen and evaluated with Ember, examination performed, management plan was discussed, agree with the current scribed note, I made few changes to the note using Italic font Patient was seen and evaluated with Ember, he was sleeping. Examination did not show any significant abnormality other than the heart murmur of the prosthetic valve. He is sedated, his mental status change and agitation is probably due to hypoxemia, currently on nasal cannula. Continue current medication and continue to monitor Clinical Quality Measures DVT/VTE Risk/Contraindication: Risk Factor Score Per Nursin RFS Level Per Nursing on Admit: 3=High EMBER ORNELAS Jan 22, 2020 08:42 WHIT ESCALANTE MD Jan 22, 2020 09:01
[2020-01-22 09:12] LABS: BASOPHILS % (AUTO) 0 % (0-10); EOSINOPHILS % (AUTO) 0 % (0-10); HEMATOCRIT 39 % (40-54); LYMPHOCYTES # (AUTO) 0.3 X 10^3 (1.0-4.0); LYMPHOCYTES % (AUTO) 3 % (12-44); MEAN CORPUSCULAR HEMOGLOBIN 29 PG (25-34); MEAN CORPUSCULAR HGB CONC 31 G/DL (32-36); MEAN CORPUSCULAR VOLUME 95 FL (80-99); MEAN PLATELET VOLUME 10.9 FL (7.4-10.4); MONOCYTES # (AUTO) 0.7 X 10^3 (0.0-1.0); MONOCYTES % (AUTO) 6 % (0-12); NEUTROPHILS # (AUTO) 10.7 X 10^3 (1.8-7.8); NEUTROPHILS % (AUTO) 91 % (42-75); PLATELET COUNT 227 10^3/uL (130-400); RED CELL DISTRIBUTION WIDTH 16.1 % (10.0-14.5); WHITE BLOOD COUNT 11.8 10^3/uL (4.3-11.0)
[2020-01-22 09:35] LABS: ALBUMIN 3.4 GM/DL (3.2-4.5); CALCIUM 8.8 MG/DL (8.5-10.1); CREATININE SERUM 1.57 MG/DL (0.60-1.30); PHOSPHORUS 3.4 MG/DL (2.3-4.7); POTASSIUM 4.3 MMOL/L (3.6-5.0)
[2020-01-22 09:58] LABS: BAND NEUTROPHILS 2 %; BASOPHILS % (MANUAL) 0 %; EOSINOPHILS % (MANUAL) 0 %; LYMPHOCYTES % (MANUAL) 2 %; MONOCYTES % (MANUAL) 2 %; NEUTROPHILS % (MANUAL) 94 %
[2020-01-22 09:59] LABS: ANISOCYTOSIS SLIGHT
[2020-01-22] MEDS: risperiDONE 1 MG (RisperDAL) TAB PO SCH ×3 (10:08→23:39)
[2020-01-22] MEDS: FUROSEMIDE 40 MG/4 ML INJ (LASIX) IVP SCH (10:08)
--- NOTE | 2020-01-22 10:42 | Progress Note ---
Subjective Subjective Date Seen by Provider: Jan 22, 2020 Time Seen by Provider: 07:35 Restless until he got ativan which helped calm him down. Review of Systems General: Other (unable to provide review of systems) HEENT: No Head Aches Pulmonary: Dyspnea; No Cough Cardiovascular: No: Chest Pain, Palpitations Gastrointestinal: Other; No: Nausea, Abdominal Pain Genitourinary: No Dysuria Musculoskeletal: No: back pain Neurological: Weakness, Confusion All Other Systems Reviewed All Other Systems Reviewed: Yes Objective Exam Vital Signs Vital Signs Date Time Temp Pulse Resp B/P (MAP) Pulse Ox O2 Delivery O2 Flow Rate FiO2 01/22/20 08:15 36.0 01/22/20 08:00 36.0 93 15 169/89 (115) 90 High Flow N/C 3.00 01/22/20 07:33 99 Nasal Cannula 5.00 01/22/20 03:45 88 19 128/80 (96) 94 NIV Bilevel 01/22/20 02:14 77 23 93 30.00 01/22/20 01:57 89 Nasal Cannula 5.00 01/22/20 00:00 81 16 159/77 (104) 91 High Flow N/C 6.00 01/21/20 21:00 91 Nasal Cannula 5.00 01/21/20 19:55 High Flow N/C 5.00 01/21/20 19:06 36.8 93 15 161/73 (102) 97 High Flow N/C 6.00 01/21/20 18:04 99 6.00 01/21/20 17:58 94 Nasal Cannula 5.00 01/21/20 15:14 36.0 108 15 142/71 (94) 99 High Flow N/C 6.00 01/21/20 14:30 97 Nasal Cannula 5.00 01/21/20 12:00 36.2 85 18 149/89 (109) 98 High Flow N/C 5.00 01/21/20 12:00 95 High Flow N/C 5.00 01/21/20 10:45 94 Nasal Cannula 5.00 I & O 01/22/20 07:00 Intake Total 100 ml Balance 100 ml General Appearance: WD/WN, Other (PT WEAK, PT CONFUSED, OBTUNDED) Eyes: Bilateral Eye PERRL HEENT: Moist Mucous Membranes, Other (hard of hearing) Neck: Normal Inspection, Supple Respiratory: Accessory Muscle Use, Decreased Breath Sounds, Other Cardiovascular: Systolic Murmur, Other (irregular) Gastrointestinal: Normal Bowel Sounds, Soft, Distended Extremity: Normal Capillary Refill, Pedal Edema Neurologic/Psychiatric: No Facial Droop; Other (CONFUSION, WEAKNESS, AGITATED) Skin: Normal Color, Warm/Dry Results Lab Laboratory Tests 01/21/20 18:00: Glucometer 173H 01/21/20 23:42: Glucometer 192H 01/22/20 05:20: Glucometer 190H 01/22/20 09:03: White Blood Count 11.8H, Red Blood Count 4.10L, Hemoglobin 12.0L, Hematocrit 39L , Mean Corpuscular Volume 95, Mean Corpuscular Hemoglobin 29, Mean Corpuscular Hemoglobin Concent 31L, Red Cell Distribution Width 16.1H, Platelet Count 227, Mean Platelet Volume 10.9H, Neutrophils (%) (Auto) 91H, Lymphocytes (%) (Auto) 3L, Monocytes (%) (Auto) 6, Eosinophils (%) (Auto) 0, Basophils (%) (Auto) 0, Neutrophils # (Auto) 10.7H, Lymphocytes # (Auto) 0.3L, Monocytes # (Auto) 0.7, Eosinophils # (Auto) 0.0, Basophils # (Auto) 0.0, Neutrophils % (Manual) 94, Lymphocytes % (Manual) 2, Monocytes % (Manual) 2, Eosinophils % (Manual) 0, Basophils % (Manual) 0, Band Neutrophils 2, Anisocytosis SLIGHT, Sodium Level 149H, Potassium Level 4.3, Chloride Level 106, Carbon Dioxide Level 32, Anion Gap 11, Blood Urea Nitrogen 53H, Creatinine 1.57H, Estimat Glomerular Filtration Rate 42, BUN/Creatinine Ratio 34, Glucose Level 181H, Calcium Level 8.8, Phosphorus Level 3.4, Albumin 3.4 Microbiology 01/14/20 MRSA Screen - Final, Complete MRSA not isolated 01/12/20 Blood Culture - Final, Complete No growth Assessment/Plan Assessment/Plan Assessment and Plan 01/20/20- monitor abdomen distention and respiratory status- may need to place the NG tube again. Continue current medication regimen. -Continue zosyn, continue steroids. 01/22/20- no significant changes- not improving though so prognosis is worsening. Cr about the same- Lasix is causing his sodium level to increase. Dispo: consider making him DNR as he is not likely to recover if he codes. continue to monitor- plan for NH placement or transfer to Swing Bed. Problems: (1) Acute respiratory failure with hypoxia Assessment & Plan: due to pneumonia and pulmonary congestion -improved (2) Sepsis (3) Generalized weakness (4) Acute on chronic kidney failure (5) DMII (diabetes mellitus, type 2) (6) HTN (hypertension) Clinical Quality Measures DVT/VTE Risk/Contraindication: Risk Factor Score Per Nursin RFS Level Per Nursing on Admit: 3=High KEHINDE KITCHEN MD Jan 22, 2020 10:42
--- NOTE | 2020-01-22 11:09 | Occ Therapy Progress Note ---
Therapy Progress Note Pt. in room asleep. Pt. has sitter with him. Sitter reports that pt. has had medication. OT attempts treatment. Pt. keeps eyes closed. Attempts PROM to bilateral UE. Pt. allows this briefly, but then rolls over. Keeps eyes closed. Unable to engage pt. Sitter came back into room. All needs met. 1, visit x 10minutes [id number] AMANDA ARAUJO OT Jan 22, 2020 11:09
[2020-01-22 12:00] VITALS: BP 161/86
--- NOTE | 2020-01-22 14:30 | NUR ---
CM/SS follow up. CM/SS contacted [facility] to follow up on referral made by MARIUSZ Funk. CM/SS spoke with Radha ([phone]) at [facility] who stated they have looked over the referral and felt that the patient is not ready to discharge to them. This is based from his ICU observation stay, Bipap, and Vapotherm recent use. CM/SS informed Radha that patient was on 5L nasal canula but they were still concerned and reported that he would need his sitter discharged and be medically stable. CM/SS contacted the patients Shyla who appeared to be very upset with this information. She stated that if "we" cannot get him medically ready to go and into a facility she is going to have him transferred to . CM/SS asked if patient has or wanted to speak with physician regarding this. She stated she hasn't but will tomorrow. CM/SS asked if she wanted this ss to send a referral to a skilled facility. [facility] CM/SS contacted [facility] and faxed a referral. Awaiting acceptance/denial. CM/SS will continue to follow.
--- NOTE | 2020-01-22 15:08 | NUR ---
NOTE THAT PT'S CALLED AND DEMANDED THAT THIS RN PUT IN NURSING NOTE THAT IF PT HAVING RESP. PROBLEMS AND CAN NOT BE TRANSFERRED TO [facility] FOR REHAP SHE WILL BE CALLED DR OLIVA'S OFFICE TO REQUEST PT BE TRANSFERRED TO
[2020-01-22 15:26] VITALS: BP 146/82
--- NOTE | 2020-01-22 16:00 | NUR ---
CM/SS: Qiana Joshi, [facility], [facility] had called and denied pt for placement. Upon calling back to determine reason for denial. Qiana reports pt is on bipap and they are unable to meet his needs. Clarification is given that pt is on 5 liters of oxygen per nasal cannula. Qiana request new information on the 5 liters of oxygen be faxed to her. Information faxed to her for reconsideration for placement.
[2020-01-22 20:02] VITALS: BP 172/95
[2020-01-23] VITALS (7 sets, daily range): BP systolic 127–155; BP diastolic 59–96
[2020-01-23] MEDS: LORazepam INJ 2 MG/ML (ATIVAN) VIAL IVP PRN ×5 (00:21→23:55)
[2020-01-23] MEDS: PIPERACILLIN/TAZO 4.5 GM/NS 100 ML IV SCH ×6 (01:26→17:26)
[2020-01-23] MEDS: RT-ALBUTEROL/IPRATROPIUM 3 ML (DUONEB) VIAL INH SCH ×7 (01:43→21:46)
[2020-01-23] MEDS: methylPREDNISolone 40 MG/ML (Solu-MEDROL) VIAL IV SCH (05:39)
[2020-01-23] MEDS: inSUlin ASPART (NovoLOG) 1 UNIT/0.01 ML (CHARGE PER UNIT) SC SCH ×3 (06:38→18:38)
[2020-01-23] MEDS: FLUTICASONE 110 MCG INHALER (FLOVENT) 12 GM INH SCH ×2 (07:03→18:49)
[2020-01-23] MEDS: morphine INJ 4 MG/ML 1 ML (VIAL/SYRINGE) IVP PRN ×2 (07:13→22:13)
--- NOTE | 2020-01-23 08:49 | Pulmonary Progress Note ---
Subjective Time Seen by a Provider: 08:46 Subjective/Events-last exam pt is doing better. Sepsis Event Evaluation Height, Weight, BMI Height: '" Weight: lbs. oz. kg; 31.28 BMI Method: Focused Exam Time of Focused Exam: 20:00 Exam Exam Vital Signs Date Time Temp Pulse Resp B/P (MAP) Pulse Ox O2 Delivery O2 Flow Rate FiO2 01/23/20 07:30 35.7 100 20 142/96 (111) 94 High Flow N/C 3.00 01/23/20 07:06 Nasal Cannula 2.00 01/23/20 07:03 93 Nasal Cannula 2.00 01/23/20 04:00 36.1 98 18 155/76 (102) 95 High Flow N/C 3.00 01/23/20 01:43 93 Nasal Cannula 3.00 01/23/20 00:00 35.7 94 18 148/80 (102) 92 High Flow N/C 3.00 01/22/20 21:39 91 Nasal Cannula 3.00 01/22/20 20:02 36.0 85 18 172/95 (120) 95 High Flow N/C 3.00 01/22/20 19:20 High Flow N/C 3.00 01/22/20 18:32 35.8 01/22/20 18:04 93 Nasal Cannula 3.00 01/22/20 15:26 35.8 93 16 146/82 (103) 93 High Flow N/C 3.00 01/22/20 13:47 94 Nasal Cannula 3.00 01/22/20 12:35 36.0 01/22/20 12:00 35.8 92 16 161/86 (111) 90 High Flow N/C 3.00 01/22/20 10:56 92 Nasal Cannula 3.00 I & O 01/23/20 07:00 Intake Total 480 ml Balance 480 ml Height & Weight Height: '" Weight: lbs. oz. kg; 31.28 BMI Method: General Appearance: WD/WN, Other (PT WEAK, PT CONFUSED, OBTUNDED) HEENT: Moist Mucous Membranes, Other (hard of hearing) Neck: Normal Inspection, Supple Respiratory: Accessory Muscle Use, Decreased Breath Sounds, Other Cardiovascular: Systolic Murmur, Other (irregular) Capillary Refill: Less Than 3 Seconds Peripheral Pulses: 2+ Dorsalis Pedis (R), 2+ Left Dors-Pedis (L) Extremity: Normal Capillary Refill, Pedal Edema Neurologic/Psychiatric: No Facial Droop; Other (CONFUSION, WEAKNESS, AGITATED) Skin: Normal Color, Warm/Dry Results Lab Laboratory Tests 01/22/20 09:03 Assessment/Plan Assessment/Plan Acute respiratory failure -NC and titrate for Sp02 90-92%. -Repeat CXR CHF with pulmonary edema - Lasix Severe sepsis with Strep -Currently on Zosyn -Repeat COVID testing- Negative -Mckeon cultures pending Anxiety/agitation -Risperadol -Haldol PRN, Morphine PRN Metabolic acidosis-- resolved NSTEMI -Cardiology following Acute on chronic renal failure -Monitor Bovine Aortic valve Replacement -No signs of endocarditits noted on MARCY NIDDMII SSI Pt is doing better I am going to sign off please call with any questions. MYKE CORREIA DO Jan 23, 2020 08:49
--- NOTE | 2020-01-23 08:56 | Cardiology Progress Note ---
Subjective Date Seen by Provider: Jan 23, 2020 Time Seen by Provider: 08:54 Subjective/Events-last exam Patient is resting at bedside. NAD. Review of Systems General: Other (unable to provide review of systems) Focused Exam Time of Focused Exam: 20:00 Objective-Cardiology Exam Last Set of Vital Signs Vital Signs 01/21/20 01/23/20 01/23/20 05:40 12:00 14:41 Temp 36.0 Pulse 95 Resp 18 B/P (MAP) 151/80 (103) Pulse Ox 95 O2 Delivery Nasal Cannula O2 Flow Rate 2.00 FiO2 24 Capillary Refill : Less Than 3 Seconds I&O Intake and Output 01/23/20 00:00 Intake Total 480 ml Balance 480 ml IV Total 480 ml # Voids 13 General: Cooperative, No Acute Distress HEENT: Atraumatic, PERRLA Neck: Supple, No JVD, No Thyromegaly Lungs: Clear to Auscultation, Normal Air Movement Heart: Regular Rate, Normal S1, Normal S2, Other (systolic murmur at the left sternal border) Abdomen: Normal Bowel Sounds, Soft, No Tenderness, No Hepatosplenomegaly, No Masses Extremities: No Clubbing, No Cyanosis, No Edema, Normal Pulses, No Tenderness/Swelling Skin: No Rashes, No Breakdown, No Significant Lesion Neuro: Normal Speech, Normal Tone, Sensation Intact Results Lab A/P-Cardiology Admission Diagnosis Pneumonia Type II IL Sepsis Acute renal failure Assessment/Plan Agitation, currently sedated. Sleeping. Probably due to hypoxemia. Managed by primary care team Status post respiratory failure, improving, managed by primary care team Gram-positive bacteremia, MARCY was done on January 16, 2020 showing normal LV size and function, no vegetation on any valvular structure, heavily calcified mitral valve with moderate to severe mitral regurgitation, prosthetic valve in the aortic position functioning normally with no vegetation, tricuspid and pulmonic valve are normal, normal aorta Pneumonia, Streptococcus in the blood culture, managed by primary care team Sepsis, managed by primary care team and ehs engineer. Type II IL, secondary to respiratory failure. Continue with conservative management History of bovine aortic valve replacement, MARCY was done on January 16, 2020, prosthetic valve is functioning normally. Congestive heart failure, acute on chronic left ventricular diastolic dysfunction, normal systolic function. Hypernatremia, I will decrease lasix, continue to monitor. Acute on chronic renal failure. Continue to monitor renal function Hypertension, monitor blood pressure Questionable history of second-degree Mobitz 1 block. Asymptomatic at this time . COVID exposure, tested negative Patient was seen and evaluated with Ember, examination performed, management plan was discussed, agree with the current scribed note, I made few changes to the note using Italic font Patient was laying down in bed, not following commands, not responding to verbal stimuli Awaiting snf placement. Continue on current treatment continue to monitor Clinical Quality Measures DVT/VTE Risk/Contraindication: Risk Factor Score Per Nursin RFS Level Per Nursing on Admit: 3=High EMBER ORNELAS Jan 23, 2020 8:56 am WHIT ESCALANTE MD Jan 23, 2020 3:21 pm
[2020-01-23] MEDS ORDERED: BISACODYL 10 MG SUPP (DULCOLAX) PR NR (09:15)
--- NOTE | 2020-01-23 09:17 | Progress Note ---
Subjective Subjective Date Seen by Provider: Jan 23, 2020 Time Seen by Provider: 08:45 PT'S FAMILY REPORTS THAT HE IS PRETTY SOMNOLENT. HE REPORTEDLY HAS BEEN QUITE COMBATIVE IN THE EVENINGS AND MORE SOMNOLENT DURING THE DAY. HE HAS NOT HAD A BOWEL MOVEMENT SINCE 01/15/2020 Review of Systems General: Other (unable to provide review of systems) HEENT: No Head Aches Pulmonary: No Dyspnea, No Cough Cardiovascular: No: Chest Pain, Palpitations Gastrointestinal: Constipation; No: Nausea, Abdominal Pain Genitourinary: No Dysuria Musculoskeletal: No: back pain Neurological: Weakness, Confusion All Other Systems Reviewed All Other Systems Reviewed: Yes Objective Exam Vital Signs Vital Signs - First Documented 01/17/20 01/17/20 01/17/20 00:00 00:24 05:00 Temp 35.4 Pulse 65 Resp 18 B/P (MAP) 125/85 (98) Pulse Ox 97 O2 Delivery NIV Bilevel O2 Flow Rate 35.00 Capillary Refill : Less Than 3 Seconds General Appearance: WD/WN, Other (PT WEAK, PT CONFUSED) Eyes: Bilateral Eye PERRL HEENT: Moist Mucous Membranes, Other (hard of hearing) Neck: Normal Inspection, Supple Respiratory: Accessory Muscle Use, Decreased Breath Sounds Cardiovascular: Systolic Murmur, Other (irregular) Gastrointestinal: Soft, Abnormal Bowel Sounds (DECREASED BOWEL SOUNDS) Extremity: Normal Capillary Refill, No Pedal Edema; No Pedal Edema Neurologic/Psychiatric: No Facial Droop; Other (CONFUSION, WEAKNESS) Skin: Normal Color, Warm/Dry Results Lab Laboratory Tests 01/22/20 11:28: Glucometer 175H 01/22/20 17:33: Glucometer 166H 01/22/20 23:37: Glucometer 182H 01/23/20 05:44: Glucometer 184H Microbiology 01/14/20 MRSA Screen - Final, Complete MRSA not isolated 01/12/20 Blood Culture - Final, Complete No growth Assessment/Plan Assessment/Plan Admission Dx RESPIRATORY DISTRESS LYMPHOCYTOSIS SEPSIS PNEUMONIA ACUTE ON CHRONIC RENAL INSUFFICIENCY ELEVATED TROPONIN ANEMIA HYPERTENSION DIABETES MELLITUS HARD OF HEARING HYPERNATREMIA RESPIRATORY DISTRESS WITH PNEUMONIA ON CXR - ON IV ZOSYN, - ON HIGH FLOW OXYGEN VIA NASAL CANNULA, PT IS ON STEROIDS - STOPPING TODAY - CONTINUE WITH SUPPORTIVE CARE LYMPHOCYTOSIS SEPSIS - SLIGHTLY IMPROVED - CONTINUE TO MONITOR ACUTE ON CHRONIC RENAL INSUFFICIENCY - SUPPORTIVE CARE WITH FLUIDS - RENAL FUNCTION IMPROVED. HYPERNATREMIA - HOLD LASIX TODAY - DISCUSSED WITH DR. ESCALANTE'S PA - WILL HOLD TODAY AND MONITOR NEED - IF NEEDS LASIX WILL DECREASE TO 20MG DAILY. ANEMIA -STABLE - CONTINUE TO MONITOR. HYPERTENSION - STABLE - CONTINUE TO MONITOR DIABETES MELLITUS - PT ON SLIDING SCALE PT NEEDS THERAPY - I HAVE DISCUSSED WITH THE PATIENT'S DTR THE NEED FOR HIM TO GO TO THE HALF-WAY ON DISCHARGE. HIS WANTS HIM TO GO TO SWING BED STATUS AT [facility]. - BUT [facility] DECLINED ACCEPTANCE OF PATIENT. WAITING ON [facility] TO DETERMINE ACCEPTANCE - PT'S DTR - GRAHAM - REPORTS THAT SHE AND HER BROTHER TALKED TO THEIR MOM - CECILIA - AND THEY ARE ALL IN AGREEMENT THAT HE NEEDS TO GO TO THE HALF-WAY. COVID-19 NEGATIVE. Problems: (1) Acute respiratory failure with hypoxia Assessment & Plan: due to pneumonia and pulmonary congestion -improved (2) Sepsis (3) Generalized weakness (4) Acute on chronic kidney failure (5) DMII (diabetes mellitus, type 2) (6) HTN (hypertension) Admission Dx RESPIRATORY DISTRESS LYMPHOCYTOSIS SEPSIS PNEUMONIA ACUTE ON CHRONIC RENAL INSUFFICIENCY ELEVATED TROPONIN ANEMIA HYPERTENSION DIABETES MELLITUS HARD OF HEARING RESPIRATORY DISTRESS WITH PNEUMONIA ON CXR - ON IV ZOSYN, - ON HIGH FLOW OXYGEN VIA NASAL CANNULA, PT IS ON STEROIDS - CONTINUE WITH SUPPORTIVE CARE LYMPHOCYTOSIS SEPSIS - SLIGHTLY IMPROVED - CONTINUE TO MONITOR ACUTE ON CHRONIC RENAL INSUFFICIENCY - SUPPORTIVE CARE WITH FLUIDS - RENAL FUNCTION IMPROVED. ELEVATED TROPONIN - DEFER TO CARDIOLOGY - WORK-UP PENDING. ANEMIA - CONTINUE TO MONITOR. HYPERTENSION - STABLE - CONTINUE TO MONITOR DIABETES MELLITUS - PT ON SLIDING SCALE PT NEEDS THERAPY - I HAVE DISCUSSED WITH THE PATIENT'S DTR THE NEED FOR HIM TO GO TO THE HALF-WAY ON DISCHARGE. HIS WANTS HIM TO GO TO SWING BED STATUS AT [facility]. COVID-19 NEGATIVE. Clinical Quality Measures Admission Status Admission Dx RESPIRATORY DISTRESS LYMPHOCYTOSIS SEPSIS PNEUMONIA ACUTE ON CHRONIC RENAL INSUFFICIENCY ELEVATED TROPONIN ANEMIA HYPERTENSION DIABETES MELLITUS HARD OF HEARING RESPIRATORY DISTRESS WITH PNEUMONIA ON CXR - ON IV ZOSYN, - ON HIGH FLOW OXYGEN VIA NASAL CANNULA, PT IS ON STEROIDS - CONTINUE WITH SUPPORTIVE CARE LYMPHOCYTOSIS SEPSIS - SLIGHTLY IMPROVED - CONTINUE TO MONITOR ACUTE ON CHRONIC RENAL INSUFFICIENCY - SUPPORTIVE CARE WITH FLUIDS - RENAL FUNCTION IMPROVED. ELEVATED TROPONIN - DEFER TO CARDIOLOGY - WORK-UP PENDING. ANEMIA - CONTINUE TO MONITOR. HYPERTENSION - STABLE - CONTINUE TO MONITOR DIABETES MELLITUS - PT ON SLIDING SCALE PT NEEDS THERAPY - I HAVE DISCUSSED WITH THE PATIENT'S DTR THE NEED FOR HIM TO GO TO THE HALF-WAY ON DISCHARGE. HIS WANTS HIM TO GO TO SWING BED STATUS AT [facility]. COVID-19 NEGATIVE. DVT/VTE Risk/Contraindication: Risk Factor Score Per Nursin RFS Level Per Nursing on Admit: 3=High NATHANIEL OLIVA MD Jan 23, 2020 09:17
--- NOTE | 2020-01-23 09:21 | Diagnostic Imaging Report ---
INDICATION: Short of breath Upright portable chest shows cardiomegaly with mild pulmonary venous distention. There remains peribronchial infiltrates in the left infrahilar region similar to the 01/22/2020 study. There is no effusion or pneumothorax. IMPRESSION: Stable chest. Dictated by: Dictated on workstation # [id number]
[2020-01-23] MEDS: KCL 20 MEQ TAB (K-DUR) PO SCH (09:45)
--- NOTE | 2020-01-23 13:27 | NUR ---
"RD ASSESSMENT PMHx: HTN; DM; hypercholesterolemia; PT INTERACTION: Note pt has confusion, per chart review. All diet information is per chart review. Note avg PO intake <25% x1d. Note last BM was 01/14, and pt not currently on bowel regimen. Note recent 28# wt loss x4d, which could be attributed to fluid losses, per chart review. ABNORMAL NUTRITION-RELATED LAB VALUES LOW: HIGH: Na 149; BUN 53; cr 1.57; glu 181 Est. kcal needs: 3441-7478 kcal | 20-25 kcal/kg Est. Pro needs: 72-90 g Pro | 0.8-1.0 g Pro/kg PES STATEMENT: Inadequate oral intake (NI-2.1) related to loss of appetite | confusion as evidenced by chart review | avg PO intake <25% x1d INTERVENTION: Continue with current diet order of DYS1 Pureed diet, with modifier of Gustavus-Thick Liquids. Continue with current supplementation order of Ensure HP, for increased kcal intake. Provides 160 kcal and 16 g Pro per serving. Will continue to follow and reassess as pt needs, intake, and status change. MONITOR/EVALUATE: PO Intake; Plan of Care; Hydration Status; Weight Status; Lab Values Haylee Acuña, MS, RD, LD"
--- NOTE | 2020-01-23 13:58 | Occ Therapy Progress Note ---
Therapy Progress Note OT entered room to complete treatment. Pt. in bed with sitter present. Pt. asleep but is moving in bed. Sitter reports that pt. was agitated this morning, and is starting to become agitated again. Will hold therapy at this time as to not agitate further. Will allow pt. to rest. 1, visit [id number] AMANDA ARAUJO OT Jan 23, 2020 13:58
--- NOTE | 2020-01-23 14:49 | NUR ---
CM/SS follow up. CM/SS contacted [facility] this a.m. and left a message for Qiana regarding acceptance/denial for skilled admission. Qiana contacted this back with follow up questions (combative, confused, oxygen need, NG tube) in regards to acceptance. The answers were provided to the best of this ability. Qiana stated that due to his combativeness and need for a sitter he was denied admissions to the facility. CM/SS contacted the patients Shyla ([phone]) to inform her of patients denial. CM/SS asked if she would like a referral sent to a locked skilled facility at [facility] [place]. Shyla stated, "no" and she would like to talk with family and discuss options. Shyla contacted this back stating she would like the patient to be sent to [facility]. SEBASTIAN/SS informed the patients physician of long-term denial and request by Shyla. She verbalized understanding and gave permission for this to send referral. CM/SS contacted [facility] and faxed referral. Awaiting acceptance or denial. The patients daughter gave this sw her cell number of [phone]. CM/SS will continue to follow for discharge planning. Addendum: 01/24/20 at 1045 by HANNAH VAN Late Entry: SEBASTIAN/RAOUL was contacted by Kaelyn at [facility] regarding placement. She stated that after reviewing the clinical information they are denying patient due to combative behaviors and medical needs.
--- NOTE | 2020-01-23 15:10 | NUR ---
Pastoral care visit.
[2020-01-24] MEDS: inSUlin ASPART (NovoLOG) 1 UNIT/0.01 ML (CHARGE PER UNIT) SC SCH ×4 (00:41→17:14)
[2020-01-24] MEDS: PIPERACILLIN/TAZO 4.5 GM/NS 100 ML IV SCH ×4 (01:46→08:16)
[2020-01-24] MEDS: morphine INJ 4 MG/ML 1 ML (VIAL/SYRINGE) IVP PRN (02:00)
[2020-01-24] MEDS: RT-ALBUTEROL/IPRATROPIUM 3 ML (DUONEB) VIAL INH SCH ×6 (02:51→21:08)
[2020-01-24 03:47] VITALS: BP 142/81
[2020-01-24] MEDS: KCL 20 MEQ TAB (K-DUR) PO SCH (07:41)
--- NOTE | 2020-01-24 07:54 | Progress Note ---
Subjective Subjective Date Seen by Provider: Jan 24, 2020 Time Seen by Provider: 07:05 PT REMAINS SOMNOLENT AND DOES NOT RESPOND TO QUESTIONS. SITTER REPORTS HE GETS AGITATED AT TIMES TRYING TO GET OUT OF BED, BUT THEN RETURNS TO A SLEEPING STATE AFTER. HE HAD A SMALL BOWEL MOVEMENT YESTERDAY AND WAS ABLE TO DRINK WITHOUT COUGHING WHEN SAT UP IN BED. Review of Systems General: Other (unable to provide review of systems) HEENT: No Head Aches Pulmonary: No Dyspnea, No Cough Cardiovascular: No: Chest Pain, Palpitations Gastrointestinal: Constipation (IMPROVING, SMALL BOWEL MOVEMENT YESTERADAY); No: Nausea, Abdominal Pain Genitourinary: No Dysuria Musculoskeletal: No: back pain Neurological: Weakness, Confusion All Other Systems Reviewed All Other Systems Reviewed: Yes Objective Exam Vital Signs Vital Signs - First Documented 01/18/20 01/18/20 00:00 07:10 Temp 35.1 Pulse 73 Resp 17 B/P (MAP) 129/101 (110) Pulse Ox 90 O2 Delivery Vapotherm O2 Flow Rate 25.00 40.00 FiO2 40 Capillary Refill : Less Than 3 Seconds General Appearance: WD/WN, Other (PT WEAK, PT CONFUSED) Eyes: Bilateral Eye PERRL HEENT: Moist Mucous Membranes, Other (hard of hearing) Neck: Normal Inspection, Supple Respiratory: Accessory Muscle Use, Decreased Breath Sounds Cardiovascular: Systolic Murmur, Other (irregular WITH 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) Gastrointestinal: Soft, Abnormal Bowel Sounds (DECREASED BOWEL SOUNDS) Extremity: Normal Capillary Refill, No Pedal Edema; No Pedal Edema Neurologic/Psychiatric: No Facial Droop; Other (CONFUSION, WEAKNESS) Skin: Normal Color, Warm/Dry Results Lab Laboratory Tests 01/23/20 11:33: Glucometer 197H 01/23/20 18:25: Glucometer 180H 01/23/20 23:07: Glucometer 109 01/23/20 23:36: Glucometer 100 01/24/20 05:28: Glucometer 127H Microbiology 01/14/20 MRSA Screen - Final, Complete MRSA not isolated 01/12/20 Blood Culture - Final, Complete No growth Assessment/Plan Assessment/Plan Assessment and Plan RESPIRATORY DISTRESS WITH PNEUMONIA ON CXR - ON IV ZOSYN, - ON HIGH FLOW OXYGEN VIA NASAL CANNULA, ATTEMPTING TO WEAN O2 LEVEL CURRENTLY DOWN TO 3L - CONTINUE WITH SUPPORTIVE CARE LYMPHOCYTOSIS SEPSIS - SLIGHTLY IMPROVED - CONTINUE TO MONITOR ACUTE ON CHRONIC RENAL INSUFFICIENCY - SUPPORTIVE CARE WITH FLUIDS - RENAL FUNCTION IMPROVED. HYPERNATREMIA - CONTINUE TO HOLD LASIX, WILL MONITOR FOR FLUID OVERLOAD CHANGES - IF NEEDED LASIX WILL INITIATE 20MG DAILY. ANEMIA -STABLE - CONTINUE TO MONITOR. HYPERTENSION - STABLE - CONTINUE TO MONITOR DIABETES MELLITUS - PT ON SLIDING SCALE PT NEEDS THERAPY - I HAVE DISCUSSED WITH THE PATIENT'S DTR THE NEED FOR HIM TO GO TO THE [facility] ON DISCHARGE. HIS WANTS HIM TO GO TO SWING BED STATUS AT [facility]. - BUT [facility] DECLINED ACCEPTANCE OF PATIENT. [facility]- PT WAS DENIED [facility] CONTACTED [facility] AND WILL ACCEPT PT IF FAMILY IS WILLING TO PROVIDE A SITTER WILL PLAN FOR DISCHARGE TOMORROW TO [facility] COVID-19 NEGATIVE. Problems: (1) Acute respiratory failure with hypoxia Assessment & Plan: due to pneumonia and pulmonary congestion -improved (2) Sepsis (3) Generalized weakness (4) Acute on chronic kidney failure (5) DMII (diabetes mellitus, type 2) (6) HTN (hypertension) Clinical Quality Measures DVT/VTE Risk/Contraindication: Risk Factor Score Per Nursin RFS Level Per Nursing on Admit: 3=High Supervisory-Addendum Brief Verification & Attestation Participated in pt care: history, MDM, physical Personally performed: exam, MDM, supervision of care Care discussed with: Medical Student Procedures: n/a Results interpretation: Verified all documentation THE PATIENT IS GROGGY FROM SEDATIVE MEDICATION GIVEN LAST NIGHT. I HAVE TALKED TO [facility] AND SAWING MACHINE OPERATOR AND THEY HAVE CONDITIONALLY ACCEPTED THE PATIENT IF THE FAMILY CAN PROVIDE SITTER COVERAGE. WE WILL WORK TOWARD DISCHARGE ON TUESDAY IF THE SITTERS CAN BE ARRANGED IN TIME. I AM CONCERNED ABOUT OVER SEDATION AND HAVE STOPPED THE HIGHER DOSE ATIVAN AND GIVEN ORDERS FOR 0.25MG Q 12 HOURS PRN ANXIETY WITH ORDERS FOR NURSING STAFF TO CALL ME PRIOR TO ADMINISTRATION OF THE ATIVAN. HALDOL HAS BEEN DC'D - LAST USE ON 01/19. LABS TO BE DRAWN TODAY. ENCOURAGE INTAKE WELL. I AGREE WITH MED STUDENT DOCUMENTATION. CASIMIRO MITCHELL STUDMINESH Jan 24, 2020 07:54 NATHANIEL OLIVA MD Jan 24, 2020 09:11
[2020-01-24 08:08] VITALS: BP 138/72
--- NOTE | 2020-01-24 08:35 | Cardiology Progress Note ---
Subjective Date Seen by Provider: Jan 24, 2020 Time Seen by Provider: 08:32 Subjective/Events-last exam Patient is asleep in bed, no apparent distress. Review of Systems General: Fatigue, Malaise, Other (unable to provide review of systems) Focused Exam Time of Focused Exam: 20:00 Objective-Cardiology Exam Last Set of Vital Signs Vital Signs 01/21/20 01/24/20 05:40 08:08 Temp 36.2 Pulse 90 Resp 16 B/P (MAP) 138/72 (94) Pulse Ox 94 O2 Delivery High Flow N/C O2 Flow Rate 3.00 FiO2 24 Capillary Refill : Less Than 3 Seconds I&O Intake and Output 01/23/20 23:59 Intake Total 2160 ml Balance 2160 ml Intake Oral 1920 ml IV Total 240 ml # Voids 11 # Bowel Movements 2 General: Cooperative, No Acute Distress HEENT: Atraumatic, PERRLA Neck: Supple, No JVD, No Thyromegaly Lungs: Clear to Auscultation, Normal Air Movement Heart: Regular Rate, Normal S1, Normal S2, Other (systolic murmur at the left sternal border) Abdomen: Normal Bowel Sounds, Soft, No Tenderness, No Hepatosplenomegaly, No Masses Extremities: No Clubbing, No Cyanosis, No Edema, Normal Pulses, No Tenderness/Swelling Skin: No Rashes, No Breakdown, No Significant Lesion Neuro: Normal Speech, Normal Tone, Sensation Intact A/P-Cardiology Admission Diagnosis Pneumonia Type II [place] Sepsis Acute renal failure Assessment/Plan Agitation, currently sedated. Sleeping. Probably due to hypoxemia. Managed by primary care team Status post respiratory failure, improving, managed by primary care team Gram-positive bacteremia, AMRCY was done on January 16, 2020 showing normal LV size and function, no vegetation on any valvular structure, heavily calcified mitral valve with moderate to severe mitral regurgitation, prosthetic valve in the aortic position functioning normally with no vegetation, tricuspid and pulmonic valve are normal, normal aorta Pneumonia, Streptococcus in the blood culture, managed by primary care team Sepsis, managed by primary care team and put in beat adjuster. Type II ME, secondary to respiratory failure. Continue with conservative management History of bovine aortic valve replacement, MARCY was done on January 16, 2020, prosthetic valve is functioning normally. Congestive heart failure, acute on chronic left ventricular diastolic dysfunction, normal systolic function. Hypernatremia, continue to hold lasix, continue to monitor. Acute on chronic renal failure. Continue to monitor renal function Hypertension, monitor blood pressure Questionable history of second-degree Mobitz 1 block. Asymptomatic at this time. COVID exposure, tested negative Patient was seen and evaluated with Ember, examination performed, management plan was discussed, agree with the current scribed note, I made few changes to the note using Italic font Patient is in bed, lethargic, no change in status Awaiting transfer to long-term facility Clinical Quality Measures DVT/VTE Risk/Contraindication: Risk Factor Score Per Nursin RFS Level Per Nursing on Admit: 3=High EMBER ORNELAS Jan 24, 2020 8:35 am WHIT ESCALANTE MD Jan 24, 2020 8:59 am
--- NOTE | 2020-01-24 09:30 | NUR ---
Patient lying in bed with eyes closed at this time. Sitter at bedside. Sitter reports she was unable to awaken patient enough to get patient to eat breakfast. Sitter reports patient frequently tosses and turns in bed, hangs legs out of bed, and pulls off oxygen tubing. Patient becomes slightly agitated with staff redirection but does not become combative at this time. Will continue to monitor.
[2020-01-24] MEDS: FLUTICASONE 110 MCG INHALER (FLOVENT) 12 GM INH SCH ×2 (10:07→21:08)
[2020-01-24 10:12] LABS: HEMOGLOBIN 11.9 G/DL (13.3-17.7); RED CELL DISTRIBUTION WIDTH 15.6 % (10.0-14.5); WHITE BLOOD COUNT 12.5 10^3/uL (4.3-11.0)
--- NOTE | 2020-01-24 10:26 | NUR ---
CM/SS follow up. CM/SS received notice from patients physician that [facility] is now willing to accept patient after the physician called them and spoke with ABNER Edwards. They discussed having the family hire a private sitter due to low staffing at [facility]. CM/SS emailed the patients daughter Arely with private caregivers and companies. She stated she would call this morning. CM/SS contacted [facility] and spoke with Grace regarding admission to skilled facility. She stated that after further discussion they have decided an outside sitter would not be allowed. Grace reports she will call daughter Arely to inform her on this. Grace was also setting up a meeting with Arely and Shyla to sign paper work for admission. Grace and this sw discussed what would be needed for planned discharge tomorrow 01/24. She stated they will need pending skilled discharge orders, ambulance set up, and family to sign paper work today. CM/SS notified the patients physician. CM/SS filled out the Non-emergent EMS transport paperwork with face sheet and insurance card present. residential mental health worker Florentino will contact EMS tomorrow to set up pickle solution maker for patient. CM/SS will contact [facility] with update. CM/SS faxed progress notes and labs. Addendum: 01/24/20 at 1414 by HANNAH VAN CM/SS spoke with Qiana from [facility]. They will accept patient for Tuesday01/28/20. The patients family and physician are notified.
[2020-01-24 10:27] LABS: POTASSIUM 3.5 MMOL/L (3.6-5.0)
[2020-01-24 10:28] LABS: CALCIUM 8.2 MG/DL (8.5-10.1)
[2020-01-24 10:29] LABS: TOTAL PROTEIN 5.1 GM/DL (6.4-8.2)
[2020-01-24 10:33] LABS: CREATININE SERUM 1.22 MG/DL (0.60-1.30)
[2020-01-24 10:36] LABS: MAGNESIUM 2.7 MG/DL (1.6-2.4)
--- NOTE | 2020-01-24 10:36 | Occ Therapy Progress Note ---
Therapy Progress Note Nrsg reports that pt. has been agitated this morning and is now sleeping. Also reports all meds are put on hold so nrsg request to hold therapy at this time as to not agitate further. Will allow pt. to rest. [id number] VANITA ELLINGTON Jan 24, 2020 10:36
[2020-01-24 11:44] VITALS: BP 146/88
--- NOTE | 2020-01-24 13:00 | NUR ---
Sitter reports patient consumed 25% of noon meal and took sips of ensure.
[2020-01-24 15:28] VITALS: BP 151/69
--- NOTE | 2020-01-24 18:13 | NUR ---
Patient's son at bedside. Patient is more alert and responsive to son. Son was asking multiple questions to assess patient's orientation, patient answered son but most of his answers were not correct. For example when asked what his address was patient responded with address he resided at previously but not currently. Son was able to get patient to eat 30% of meal. Patient now resting with eyes closed.
[2020-01-24 20:11] VITALS: BP 139/65
--- NOTE | 2020-01-24 20:30 | NUR ---
pt currently has a live sitter at bedside. however the pt is very combative with sitter and other staff. pt has been changed offered the urinal and did void, lotion applied and backrub given.. po fluids given. lights have been turned off and left on.. same with the tv.. nothing has worked to calm the pt.. pt has tried to climb out of bed.. dr vaca notified and she okayed giving the ativan.. this was given as ordered. 2129 pt has settled down some however pt still continues to be impulsive and angry at staff.. siderails up x4 bed in low position and sitter at bedside. pt will not do the is q2h and will not leave the o2 in place.. pox is 93 on room air and is in no resp distress noted. we will leave off at this time sl patent and is wrapped with kerlex so the pt will not bother.. pt is frequently offered po fluids and did eat 25% of evening meal.
[2020-01-24] MEDS: LORazepam INJ 2 MG/ML (ATIVAN) VIAL IVP PRN (20:51)
[2020-01-24 23:19] VITALS: BP 154/78
[2020-01-25] MEDS: RT-ALBUTEROL/IPRATROPIUM 3 ML (DUONEB) VIAL INH SCH ×3 (02:00→10:42)
[2020-01-25 04:06] VITALS: BP 164/79
[2020-01-25 07:26] LABS: CHLORIDE 112 MMOL/L (98-107); POTASSIUM 3.4 MMOL/L (3.6-5.0); SODIUM 150 MMOL/L (135-145)
[2020-01-25 07:27] LABS: CALCIUM 8.7 MG/DL (8.5-10.1)
[2020-01-25 07:28] LABS: GLUCOSE 108 MG/DL (70-105)
[2020-01-25 07:29] LABS: CARBON DIOXIDE 27 MMOL/L (21-32)
[2020-01-25 07:32] LABS: CREATININE SERUM 1.02 MG/DL (0.60-1.30); GFR ESTIMATED > 60
[2020-01-25 07:33] LABS: BUN/CREATININE RATIO 37
[2020-01-25] MEDS: inSUlin ASPART (NovoLOG) 1 UNIT/0.01 ML (CHARGE PER UNIT) SC SCH ×4 (07:38→18:38)
[2020-01-25 08:11] VITALS: BP 137/86
--- NOTE | 2020-01-25 08:28 | Progress Note ---
Subjective Subjective Date Seen by Provider: Jan 25, 2020 Time Seen by Provider: 08:10 PT REQUIRED SOME MEDICATION LAST NIGHT TO HELP CALM HIM DOWN - STAFF REPORTS THAT LATE LAST NIGHT HE GOT A DOSE OF ATIVAN AND HAS BEEN A LITTLE GROGGY THIS MORNING, BUT IT HAS BEEN BETTER COMPARED TO PREVIOUS DAY. HE ATE A LITTLE LAST NIGHT WITH HIS SON FEEDING. JAKE WOKE UP A LITTLE WHEN I SAW HIM THIS MORNING, DID NOT IMMEDIATELY RECOGNIZE ME, BUT DID KNOW I WAS A DOCTOR. Review of Systems General: Other (GROGGY, BUT MORE ALERT THAN 01/24/2020) HEENT: No Head Aches Pulmonary: No Dyspnea, No Cough Cardiovascular: No: Chest Pain, Palpitations Gastrointestinal: Constipation (IMPROVING, SMALL BOWEL MOVEMENT YESTERADAY); No: Nausea, Abdominal Pain Genitourinary: No Dysuria Musculoskeletal: No: back pain Neurological: Weakness, Confusion All Other Systems Reviewed All Other Systems Reviewed: Yes Objective Exam Vital Signs Vital Signs - First Documented 01/19/20 01/19/20 00:00 03:57 Temp 36.2 Pulse 67 Resp 13 B/P (MAP) 145/77 (99) Pulse Ox 98 O2 Delivery NIV Bilevel O2 Flow Rate 30.00 FiO2 30 Capillary Refill : Less Than 3 SecondsLess Than 3 Seconds General Appearance: No Apparent Distress, WD/WN, Other (PT WEAK, PT CONFUSED) Eyes: Bilateral Eye PERRL HEENT: Moist Mucous Membranes, Other (hard of hearing) Neck: Normal Inspection, Supple Respiratory: Accessory Muscle Use, Decreased Breath Sounds Cardiovascular: Systolic Murmur, Other (irregular WITH 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) Gastrointestinal: Normal Bowel Sounds, Non Tender, Soft Extremity: Normal Capillary Refill, No Pedal Edema; No Pedal Edema Neurologic/Psychiatric: No Facial Droop; Other (CONFUSION, WEAKNESS) Skin: Normal Color, Warm/Dry Results Lab Laboratory Tests 01/24/20 10:04: White Blood Count 12.5H, Red Blood Count 4.03L, Hemoglobin 11.9L, Hematocrit 38L , Mean Corpuscular Volume 95, Mean Corpuscular Hemoglobin 30, Mean Corpuscular Hemoglobin Concent 31L, Red Cell Distribution Width 15.6H, Platelet Count 143, Mean Platelet Volume 11.0H, Sodium Level 150H, Potassium Level 3.5L, Chloride Level 110H, Carbon Dioxide Level 29, Anion Gap 11, Blood Urea Nitrogen 47H, Creatinine 1.22, Estimat Glomerular Filtration Rate 57, BUN/Creatinine Ratio 39, Glucose Level 132H, Calcium Level 8.2L, Corrected Calcium 9.0, Magnesium Level 2.7H, Total Bilirubin 2.0H, Aspartate Amino Transf (AST/SGOT) 69H, Alanine Aminotransferase (ALT/SGPT) 153H, Alkaline Phosphatase 54, Total Protein 5.1L, Albumin 3.0L 01/24/20 11:49: Glucometer 128H 01/24/20 17:13: Glucometer 113H 01/24/20 23:14: Glucometer 114H 01/25/20 05:25: Sodium Level 150H, Potassium Level 3.4L, Chloride Level 112H, Carbon Dioxide Level 27, Anion Gap 11, Blood Urea Nitrogen 38H, Creatinine 1.02, Estimat Glomerular Filtration Rate > 60, BUN/Creatinine Ratio 37, Glucose Level 108H, Calcium Level 8.7 Microbiology 01/14/20 MRSA Screen - Final, Complete MRSA not isolated 01/12/20 Blood Culture - Final, Complete No growth Assessment/Plan Assessment/Plan Admission Dx RESPIRATORY DISTRESS LYMPHOCYTOSIS SEPSIS PNEUMONIA ACUTE ON CHRONIC RENAL INSUFFICIENCY ELEVATED TROPONIN ANEMIA HYPERTENSION DIABETES MELLITUS HARD OF HEARING HYPERNATREMIA ELEVATED LIVER ENZYMES RESPIRATORY DISTRESS WITH PNEUMONIA AND SEPSIS - COMPLETED COURSE OF IV ZOSYN WITH MEDICATION ENDING ON 01/24/2020 WITH CLEARING OF CHEST XRAY. - CONTINUE WITH SUPPORTIVE CARE LYMPHOCYTOSIS - SLIGHTLY IMPROVED - CONTINUE TO MONITOR ACUTE ON CHRONIC RENAL INSUFFICIENCY - SUPPORTIVE CARE WITH FLUIDS - RENAL FUNCTION STABLE HYPERNATREMIA - LASIX ON HOLD - START D5 1/2 NS WITH 20MEQK ANEMIA -STABLE - CONTINUE TO MONITOR. HYPERTENSION - STABLE - CONTINUE TO MONITOR DIABETES MELLITUS - PT ON SLIDING SCALE - POOR PO INTAKE ELEVATED LIVER ENZYMES - START FLUIDS, INCREASE FOOD INTAKE, MONITOR LABS PT NEEDS THERAPY - I HAVE DISCUSSED WITH THE PATIENT'S DTR THE NEED FOR HIM TO GO TO THE [facility] ON DISCHARGE. WILL PLAN ON DISCHARGE TO [facility] ON TUESDAY - DUE TO THIS BEING A HOLIDAY WEEKEND PATIENT WILL BE HELD AT HOSPITAL UNTIL TUESDAY. COVID-19 NEGATIVE. Problems: (1) Acute respiratory failure with hypoxia Assessment & Plan: due to pneumonia and pulmonary congestion -improved (2) Sepsis (3) Generalized weakness (4) Acute on chronic kidney failure (5) DMII (diabetes mellitus, type 2) (6) HTN (hypertension) Admission Dx RESPIRATORY DISTRESS LYMPHOCYTOSIS SEPSIS PNEUMONIA ACUTE ON CHRONIC RENAL INSUFFICIENCY ELEVATED TROPONIN ANEMIA HYPERTENSION DIABETES MELLITUS HARD OF HEARING HYPERNATREMIA RESPIRATORY DISTRESS WITH PNEUMONIA ON CXR - ON IV ZOSYN, - ON HIGH FLOW OXYGEN VIA NASAL CANNULA, PT IS ON STEROIDS - STOPPING TODAY - CONTINUE WITH SUPPORTIVE CARE LYMPHOCYTOSIS SEPSIS - SLIGHTLY IMPROVED - CONTINUE TO MONITOR ACUTE ON CHRONIC RENAL INSUFFICIENCY - SUPPORTIVE CARE WITH FLUIDS - RENAL FUNCTION IMPROVED. HYPERNATREMIA - HOLD LASIX TODAY - DISCUSSED WITH DR. ESCALANTE'S PA - WILL HOLD TODAY AND MONITOR NEED - IF NEEDS LASIX WILL DECREASE TO 20MG DAILY. ANEMIA -STABLE - CONTINUE TO MONITOR. HYPERTENSION - STABLE - CONTINUE TO MONITOR DIABETES MELLITUS - PT ON SLIDING SCALE PT NEEDS THERAPY - I HAVE DISCUSSED WITH THE PATIENT'S DTR THE NEED FOR HIM TO GO TO THE [facility] ON DISCHARGE. HIS WANTS HIM TO GO TO SWING BED STATUS AT [facility]. - BUT [facility] DECLINED ACCEPTANCE OF PATIENT. [facility] - PT'S DTR - GRAHAM - REPORTS THAT SHE AND HER BROTHER TALKED TO THEIR MOM - CECILIA - AND THEY ARE ALL IN AGREEMENT THAT HE NEEDS TO GO TO THE [facility]. COVID-19 NEGATIVE. Clinical Quality Measures Admission Status Admission Dx RESPIRATORY DISTRESS LYMPHOCYTOSIS SEPSIS PNEUMONIA ACUTE ON CHRONIC RENAL INSUFFICIENCY ELEVATED TROPONIN ANEMIA HYPERTENSION DIABETES MELLITUS HARD OF HEARING HYPERNATREMIA RESPIRATORY DISTRESS WITH PNEUMONIA ON CXR - ON IV ZOSYN, - ON HIGH FLOW OXYGEN VIA NASAL CANNULA, PT IS ON STEROIDS - STOPPING TODAY - CONTINUE WITH SUPPORTIVE CARE LYMPHOCYTOSIS SEPSIS - SLIGHTLY IMPROVED - CONTINUE TO MONITOR ACUTE ON CHRONIC RENAL INSUFFICIENCY - SUPPORTIVE CARE WITH FLUIDS - RENAL FUNCTION IMPROVED. HYPERNATREMIA - HOLD LASIX TODAY - DISCUSSED WITH DR. ESCALANTE'S PA - WILL HOLD TODAY AND MONITOR NEED - IF NEEDS LASIX WILL DECREASE TO 20MG DAILY. ANEMIA -STABLE - CONTINUE TO MONITOR. HYPERTENSION - STABLE - CONTINUE TO MONITOR DIABETES MELLITUS - PT ON SLIDING SCALE PT NEEDS THERAPY - I HAVE DISCUSSED WITH THE PATIENT'S DTR THE NEED FOR HIM TO GO TO THE [facility] ON DISCHARGE. HIS WANTS HIM TO GO TO SWING BED STATUS AT [facility]. - BUT [facility] DECLINED ACCEPTANCE OF PATIENT. [facility] - PT'S DTR - GRAHAM - REPORTS THAT SHE AND HER BROTHER TALKED TO THEIR MOM - CECILIA - AND THEY ARE ALL IN AGREEMENT THAT HE NEEDS TO GO TO THE [facility]. COVID-19 NEGATIVE. DVT/VTE Risk/Contraindication: Risk Factor Score Per Nursin RFS Level Per Nursing on Admit: 3=High NATHANIEL OLIVA MD Jan 25, 2020 08:28
[2020-01-25 08:36] LABS: ALBUMIN 3.2 GM/DL (3.2-4.5)
[2020-01-25 08:38] LABS: TOTAL PROTEIN 5.5 GM/DL (6.4-8.2)
[2020-01-25 08:40] LABS: BILIRUBIN,TOTAL 2.1 MG/DL (0.1-1.0)
[2020-01-25 08:44] LABS: BILIRUBIN,DIRECT 0.8 MG/DL (0.0-0.3); BILIRUBIN,INDIRECT 1.3 MG/DL
[2020-01-25] MEDS: D5 1/2 NS W/KCL 20 MEQ/L 1,000 ML IV SCH ×2 (08:50→19:43)
[2020-01-25] MEDS: FLUTICASONE 110 MCG INHALER (FLOVENT) 12 GM INH SCH (10:49)
[2020-01-25] MEDS: LORazepam INJ 2 MG/ML (ATIVAN) VIAL IVP PRN ×2 (10:50→23:43)
--- NOTE | 2020-01-25 10:53 | Cardiology Progress Note ---
Subjective Date Seen by Provider: Jan 25, 2020 Time Seen by Provider: 10:52 Subjective/Events-last exam Patient is laying down in bed, lethargic, not using oxygen at this time. No new complaint. Review of Systems General: Fatigue, Malaise Pulmonary: Dyspnea Cardiovascular: Edema; No: Chest Pain, Palpitations, Orthopnea, Paroxysmal Noc. Dyspnea, Lt Headedness, Other Focused Exam Time of Focused Exam: 20:00 Objective-Cardiology Exam Last Set of Vital Signs Vital Signs 01/21/20 01/24/20 01/25/20 01/25/20 05:40 21:19 08:11 10:42 Temp 35.0 Pulse 100 Resp 20 B/P (MAP) 137/86 (103) Pulse Ox 98 O2 Delivery Room Air O2 Flow Rate 2.00 FiO2 24 Capillary Refill : Less Than 3 SecondsLess Than 3 Seconds I&O Intake and Output 01/25/20 00:00 Intake Total 640 ml Output Total 5 ml Balance 635 ml Intake Oral 400 ml IV Total 240 ml Output Urine Total 5 ml # Voids 7 # Bowel Movements 1 General: Cooperative, No Acute Distress HEENT: Atraumatic, PERRLA Neck: Supple, No JVD, No Thyromegaly Lungs: Clear to Auscultation, Normal Air Movement Heart: Regular Rate, Normal S1, Normal S2, Other (systolic murmur at the left sternal border) Abdomen: Normal Bowel Sounds, Soft, No Tenderness, No Hepatosplenomegaly, No Masses Extremities: No Clubbing, No Cyanosis, No Edema, Normal Pulses, No Tenderness/Swelling Skin: No Rashes, No Breakdown, No Significant Lesion Neuro: Normal Speech, Normal Tone, Sensation Intact Results Lab Laboratory Tests 01/25/20 05:25 A/P-Cardiology Admission Diagnosis Pneumonia Type II [place] Sepsis Acute renal failure Assessment/Plan Agitation, receiving sedation, better at this time. Managed by primary care team Status post respiratory failure, improving, managed by primary care team Mild elevation in liver enzymes. Continue to monitor, followed by primary care team Gram-positive bacteremia, MARCY was done on January 16, 2020 showing normal LV size and function, no vegetation on any valvular structure, heavily calcified mitral valve with moderate to severe mitral regurgitation, prosthetic valve in the aortic position functioning normally with no vegetation, tricuspid and pulmonic valve are normal, normal aorta Pneumonia, Streptococcus in the blood culture, managed by primary care team Sepsis, managed by primary care team and equipment service lead. Type II [place], secondary to respiratory failure. Continue with conservative management History of bovine aortic valve replacement, MARCY was done on January 16, 2020, pro sthetic valve is functioning normally. Congestive heart failure, acute on chronic left ventricular diastolic dysfunction, normal systolic function. Hypernatremia, continue to hold lasix, continue to monitor. Acute on chronic renal failure. Continue to monitor renal function Hypertension, monitor blood pressure Questionable history of second-degree Mobitz 1 block. Asymptomatic at this time . COVID exposure, tested negative Clinical Quality Measures DVT/VTE Risk/Contraindication: Risk Factor Score Per Nursin RFS Level Per Nursing on Admit: 3=High WHIT ESCALANTE MD Jan 25, 2020 10:53 am
--- NOTE | 2020-01-25 10:53 | NUR ---
PRN Ativan given at this time due to patient kicking, swinging at staff. Yelling at staff to leave him alone and attempting to crawl out of bed. Continuously trying to pull out IV. Prior to administering PRN medication staff attempted to change patient, reposition, use of soft velcro arm splint, and offered food and liquids none of which were effective.
--- NOTE | 2020-01-25 11:39 | Occ Therapy Progress Note ---
Therapy Progress Note 1113 Pt agitated and unable to participate with OT. Will continue to follow. MARCO BRIGGS OT Jan 25, 2020 11:38
[2020-01-25 12:00] VITALS: BP 139/82
--- NOTE | 2020-01-25 13:25 | NUR ---
Shyla spoke to this RN at this time and requested for patient to have an MRI of brain due to changes in mentation. I contacted Dr. Barrientos and received telephone orders for MRI of brain w/o contrast. Radiology called this RN after orders placed, no MRI staff available until Tuesday. Orders changed to have MRI done Tuesday at 0700.
[2020-01-25] MEDS ORDERED: RT-ALBUTEROL/IPRATROPIUM 3 ML (DUONEB) VIAL INH PRN (14:45)
[2020-01-25] MEDS ORDERED: FLUTICASONE 110 MCG INHALER (FLOVENT) 12 GM INH PRN (14:45)
[2020-01-25 15:06] VITALS: BP 139/78
[2020-01-25 19:06] VITALS: BP 147/72
[2020-01-25] MEDS: ACETAMINOPHEN 500 MG TAB (TYLENOL) PO PRN (19:43)
--- NOTE | 2020-01-26 00:06 | NUR ---
1215 pt trying to get out of bed hitting at staff no attempts to reorientate or given care successful in settling pt down. pt also pulling at iv tubing and iv site.. pr ativan given as ordered sitter at bedisde
[2020-01-26 05:46] LABS: HEMOGLOBIN 12.4 G/DL (13.3-17.7); MEAN PLATELET VOLUME 11.5 FL (7.4-10.4); RED CELL DISTRIBUTION WIDTH 15.2 % (10.0-14.5); WHITE BLOOD COUNT 10.9 10^3/uL (4.3-11.0)
[2020-01-26] MEDS: inSUlin ASPART (NovoLOG) 1 UNIT/0.01 ML (CHARGE PER UNIT) SC SCH ×4 (05:53→17:40)
[2020-01-26 05:59] LABS: CHLORIDE 114 MMOL/L (98-107); POTASSIUM 3.4 MMOL/L (3.6-5.0); SODIUM 147 MMOL/L (135-145)
[2020-01-26 06:00] LABS: CALCIUM 8.2 MG/DL (8.5-10.1)
[2020-01-26 06:01] LABS: GLUCOSE 129 MG/DL (70-105); TOTAL PROTEIN 5.1 GM/DL (6.4-8.2)
[2020-01-26 06:02] LABS: CARBON DIOXIDE 24 MMOL/L (21-32)
[2020-01-26 06:03] LABS: BILIRUBIN,TOTAL 2.2 MG/DL (0.1-1.0)
[2020-01-26 06:04] LABS: ALKALINE PHOSPHATASE 50 U/L (40-136)
[2020-01-26 06:05] LABS: CREATININE SERUM 0.95 MG/DL (0.60-1.30); GFR ESTIMATED > 60
[2020-01-26 06:06] LABS: BUN/CREATININE RATIO 36
[2020-01-26 06:08] LABS: ALANINE AMINOTRANSFERASE 122 U/L (0-55)
[2020-01-26] MEDS: D5 1/2 NS W/KCL 20 MEQ/L 1,000 ML IV SCH ×2 (06:11→18:49)
[2020-01-26 08:09] VITALS: BP 148/84
--- NOTE | 2020-01-26 11:18 | Progress Note - Hospitalist ---
Subjective HPI/CC On Admission Date Seen by Provider: Jan 26, 2020 Time Seen by Provider: 09:00 Pt is an 84yoCm with a PMH of HTN, aortic valve replacement, and NIDDMII who presented to the ER due to weakness. He is very hard of hearing and unfortunately with all of the COVID precautions conversation with patient is limited. He seems slightly confused as he did not know that he was in the hospital. I did speak to his daughter who is an RN here. All history if obtained from her and the ER note. Apparently he has not felt well for the past few days and yesterday was more weak and had a near syncopal episode. It took multiple family members to get him up so he was brought in for evaluation. He was found to be febrile and had a LLL PNA on CXR along with a mild RUSTAM. He does have an indirect exposure to COVID19 and per his daughter has been going to the grocery store and out regularly. She believes he does wear a mask and wash his hands though. Today he denies any complaints and is feeling a bit better. Subjective/Events-last exam He is sleeping upon my arrival but is easily aroused. He denies any complaints this morning. He denies any pain. He denies any shortness of breath. He seems to be in an agreeable mood. Focused Exam Time of Focused Exam: 20:00 Objective Exam Vital Signs Vital Signs Date Time Temp Pulse Resp B/P (MAP) Pulse Ox O2 Delivery O2 Flow Rate FiO2 01/26/20 08:09 36.2 88 20 148/84 (105) 94 Room Air 01/26/20 08:00 2.00 01/21/20 05:40 24 Capillary Refill : Less Than 3 SecondsLess Than 3 Seconds General Appearance: No Apparent Distress, WD/WN, Chronically ill Respiratory: Lungs Clear, Normal Breath Sounds, No Respiratory Distress Cardiovascular: Regular Rate, Rhythm, No Edema, No Murmur Gastrointestinal: Normal Bowel Sounds, Non Tender, Soft Extremity: Normal Inspection, Non Tender, No Pedal Edema Neurologic/Psychiatric: Alert, Normal Mood/Affect, Disoriented Skin: Normal Color, Warm/Dry Results/Procedures Lab Laboratory Tests 01/26/20 05:30 Patient resulted labs reviewed. Imaging: Reviewed Imaging Report Assessment/Plan Assessment and Plan Assess & Plan/Chief Complaint Debility PT/OT Planning for transfer to long-term on Tuesday Pneumonia completed course of Zosyn Leukocytosis WBC 10.9 today Resolved RUSTAM on CKD Creatinine 0.95 RUSTAM resolved Hypernatremia Improving, continue IV fluids Elevated LFTs Improving, continue to monitor Anemia Hemoglobin 12.4, stable Type II diabetes mellitus Sliding scale insulin Hypertension BP well-controlled on no meds, continue to monitor DVT prophylaxis: SCDs Diagnosis/Problems Diagnosis/Problems (1) Debility Status: Acute (2) Hypernatremia Status: Acute (3) Anemia Status: Chronic (4) Elevated LFTs Status: Acute (5) T2DM (type 2 diabetes mellitus) Status: Chronic (6) Pneumonia Status: Chronic (7) Leukocytosis Status: Resolved Resolution Date/Time: 01/26/20 @ 11:18 (8) Acute kidney injury superimposed on chronic kidney disease Status: Acute Clinical Quality Measures DVT/VTE Risk/Contraindication: Risk Factor Score Per Nursin RFS Level Per Nursing on Admit: 3=High HEATHER VALDEZ MD Jan 26, 2020 11:18
[2020-01-26 11:29] VITALS: BP 128/70
--- NOTE | 2020-01-26 11:57 | Cardiology Progress Note ---
Subjective Date Seen by Provider: Jan 26, 2020 Time Seen by Provider: 11:56 Subjective/Events-last exam Patient is more awake, still confused Review of Systems General: No Chills, No Night Sweats, No Fatigue, No Malaise, No Appetite, No Other HEENT: No Head Aches, No Visual Changes, No Eye Pain, No Ear Pain, No Dysphasia, No Sinus Congestion, No Post Nasal Drip, No Sore Throat, No Other Pulmonary: No Dyspnea, No Cough, No Pleuritic Chest Pain, No Other Cardiovascular: No: Chest Pain, Palpitations, Orthopnea, Paroxysmal Noc. Dyspnea, Edema, Lt Headedness, Other Focused Exam Time of Focused Exam: 20:00 Objective-Cardiology Exam Last Set of Vital Signs Vital Signs 01/21/20 01/26/20 01/26/20 05:40 08:00 11:29 Temp 36.0 Pulse 90 Resp 22 B/P (MAP) 128/70 (89) Pulse Ox 95 O2 Delivery Room Air O2 Flow Rate 2.00 FiO2 24 Capillary Refill : Less Than 3 SecondsLess Than 3 Seconds I&O Intake and Output 01/26/20 00:00 Intake Total 750 ml Balance 750 ml Intake Oral 750 ml # Voids 8 # Urine Diapers 5 # Bowel Movements 1 General: Cooperative, No Acute Distress, Other (confused) HEENT: Atraumatic, PERRLA Neck: Supple, No JVD, No Thyromegaly Lungs: Clear to Auscultation, Normal Air Movement Heart: Regular Rate, Normal S1, Normal S2, Other (systolic murmur at the left sternal border) Abdomen: Normal Bowel Sounds, Soft, No Tenderness, No Hepatosplenomegaly, No Masses Extremities: No Clubbing, No Cyanosis, No Edema, Normal Pulses, No Tenderness/Swelling Skin: No Rashes, No Breakdown, No Significant Lesion Neuro: Normal Speech, Normal Tone, Sensation Intact, Other (confused) Results Lab Laboratory Tests 01/26/20 05:30 A/P-Cardiology Admission Diagnosis Pneumonia Type II [place] Sepsis Acute renal failure Assessment/Plan Confusion, agitation, receiving sedation, some improvement today, managed by primary care team Status post respiratory failure, improving, managed by primary care team Mild elevation in liver enzymes. Continue to monitor, followed by primary care team Gram-positive bacteremia, MARCY was done on January 16, 2020 showing normal LV size and function, no vegetation on any valvular structure, heavily calcified mitral valve with moderate to severe mitral regurgitation, prosthetic valve in the aortic position functioning normally with no vegetation, tricuspid and pulmonic valve are normal, normal aorta Pneumonia, Streptococcus in the blood culture, managed by primary care team Sepsis, managed by primary care team and auto technician. Type II [place], secondary to respiratory failure. Continue with conservative management History of bovine aortic valve replacement, MARCY was done on January 16, 2020, p rosthetic valve is functioning normally. Congestive heart failure, acute on chronic left ventricular diastolic dysfunction, normal systolic function. Hypernatremia, continue to hold lasix, continue to monitor. Acute on chronic renal failure. Continue to monitor renal function Hypertension, monitor blood pressure Questionable history of second-degree Mobitz 1 block. Asymptomatic at this ti me. COVID exposure, tested negative Clinical Quality Measures DVT/VTE Risk/Contraindication: Risk Factor Score Per Nursin RFS Level Per Nursing on Admit: 3=High WHIT ESCALANTE MD Jan 26, 2020 11:57 am
[2020-01-26 15:35] VITALS: BP 146/69
[2020-01-26] MEDS: LORazepam INJ 2 MG/ML (ATIVAN) VIAL IVP PRN (18:45)
[2020-01-26] MEDS: ACETAMINOPHEN 500 MG TAB (TYLENOL) PO PRN (20:10)
[2020-01-26 23:28] VITALS: BP 145/84
[2020-01-27] MEDS: LORazepam INJ 2 MG/ML (ATIVAN) VIAL IVP PRN (01:28)
[2020-01-27 05:48] LABS: HEMOGLOBIN 11.6 G/DL (13.3-17.7); MEAN PLATELET VOLUME 11.9 FL (7.4-10.4); RED CELL DISTRIBUTION WIDTH 15.3 % (10.0-14.5); WHITE BLOOD COUNT 12.4 10^3/uL (4.3-11.0)
[2020-01-27] MEDS: inSUlin ASPART (NovoLOG) 1 UNIT/0.01 ML (CHARGE PER UNIT) SC SCH ×4 (06:00→17:46)
[2020-01-27 06:01] LABS: ALBUMIN 2.7 GM/DL (3.2-4.5)
[2020-01-27 06:02] LABS: CHLORIDE 111 MMOL/L (98-107); POTASSIUM 3.9 MMOL/L (3.6-5.0); SODIUM 139 MMOL/L (135-145)
[2020-01-27 06:03] LABS: CALCIUM 7.8 MG/DL (8.5-10.1)
[2020-01-27 06:04] LABS: GLUCOSE 143 MG/DL (70-105); TOTAL PROTEIN 4.7 GM/DL (6.4-8.2)
[2020-01-27 06:05] LABS: CARBON DIOXIDE 20 MMOL/L (21-32)
[2020-01-27 06:06] LABS: BILIRUBIN,TOTAL 1.8 MG/DL (0.1-1.0)
[2020-01-27 06:07] LABS: ALKALINE PHOSPHATASE 50 U/L (40-136)
[2020-01-27 06:08] LABS: GFR ESTIMATED > 60
[2020-01-27 06:09] LABS: BUN/CREATININE RATIO 30
[2020-01-27 06:10] LABS: ALANINE AMINOTRANSFERASE 95 U/L (0-55)
[2020-01-27 08:01] VITALS: BP 144/90
--- NOTE | 2020-01-27 12:26 | Progress Note - Hospitalist ---
Subjective HPI/CC On Admission Date Seen by Provider: Jan 27, 2020 Time Seen by Provider: 09:20 Pt is an 84yoCm with a PMH of HTN, aortic valve replacement, and NIDDMII who presented to the ER due to weakness. He is very hard of hearing and unfortunately with all of the COVID precautions conversation with patient is limited. He seems slightly confused as he did not know that he was in the hospital. I did speak to his daughter who is an RN here. All history if obtained from her and the ER note. Apparently he has not felt well for the past few days and yesterday was more weak and had a near syncopal episode. It took multiple family members to get him up so he was brought in for evaluation. He was found to be febrile and had a LLL PNA on CXR along with a mild RUSTAM. He does have an indirect exposure to COVID19 and per his daughter has been going to the grocery store and out regularly. She believes he does wear a mask and wash his hands though. Today he denies any complaints and is feeling a bit better. Subjective/Events-last exam he denies any complaints or concerns. He was sleeping upon my arrival but easily awakens. He denies any pain. Focused Exam Time of Focused Exam: 20:00 Objective Exam Vital Signs Vital Signs Date Time Temp Pulse Resp B/P (MAP) Pulse Ox O2 Delivery O2 Flow Rate FiO2 01/27/20 08:01 35.7 81 24 144/90 (108) 95 Room Air 01/27/20 08:00 2.00 01/21/20 05:40 24 Capillary Refill : Less Than 3 SecondsLess Than 3 Seconds General Appearance: No Apparent Distress, Chronically ill Respiratory: Lungs Clear, Normal Breath Sounds, No Respiratory Distress Cardiovascular: Regular Rate, Rhythm, No Edema, No Murmur Gastrointestinal: Normal Bowel Sounds, Non Tender, Soft Extremity: Normal Inspection, Non Tender, No Pedal Edema Neurologic/Psychiatric: Alert, Normal Mood/Affect Skin: Warm/Dry, Pallor Results/Procedures Lab Laboratory Tests 01/27/20 05:12 Patient resulted labs reviewed. Imaging: Reviewed Imaging Report Assessment/Plan Assessment and Plan Assess & Plan/Chief Complaint Debility PT/OT Planning for transfer to nursing home on Tuesday Anemia Hemoglobin trending down slowly, 11.6 this morning Delirium reorient as needed Ativan as needed Leukocytosis mild, WBC stable CKD Creatinine 0.95 RUSTAM resolved Elevated LFTs Improving, near normal Type II diabetes mellitus Sliding scale insulin Hypertension BP well-controlled on no meds, continue to monitor DVT prophylaxis: SCDs Pneumonia, resolved Hypernatremia, resolved RUSTAM on CKD, resolved Diagnosis/Problems Diagnosis/Problems (1) Debility Status: Acute (2) Hypernatremia Status: Acute (3) Anemia Status: Chronic (4) Elevated LFTs Status: Acute (5) T2DM (type 2 diabetes mellitus) Status: Chronic (6) Pneumonia Status: Resolved Resolution Date/Time: 01/27/20 @ 12:25 (7) Leukocytosis Status: Resolved Resolution Date/Time: 01/26/20 @ 11:18 (8) Acute kidney injury superimposed on chronic kidney disease Status: Acute Clinical Quality Measures DVT/VTE Risk/Contraindication: Risk Factor Score Per Nursin RFS Level Per Nursing on Admit: 3=High HEATHER VALDEZ MD Jan 27, 2020 12:26
[2020-01-27] MEDS ORDERED: LORazepam INJ 2 MG/ML (ATIVAN) VIAL IM PRN (12:30)
--- NOTE | 2020-01-27 12:47 | Cardiology Progress Note ---
Subjective Date Seen by Provider: Jan 27, 2020 Time Seen by Provider: 12:46 Subjective/Events-last exam Patient is sitting in bed, eating lunch, still confused but overall appeared to be improving Review of Systems General: No Chills, No Night Sweats, No Fatigue, No Malaise, No Appetite, No Other HEENT: No Head Aches, No Visual Changes, No Eye Pain, No Ear Pain, No D ysphasia, No Sinus Congestion, No Post Nasal Drip, No Sore Throat, No Other Pulmonary: No Dyspnea, No Cough, No Pleuritic Chest Pain, No Other Cardiovascular: No: Chest Pain, Palpitations, Orthopnea, Paroxysmal Noc. Dyspnea, Edema, Lt Headedness, Other Focused Exam Time of Focused Exam: 20:00 Objective-Cardiology Exam Last Set of Vital Signs Vital Signs 01/21/20 01/27/20 01/27/20 05:40 08:00 08:01 Temp 35.7 Pulse 81 Resp 24 B/P (MAP) 144/90 (108) Pulse Ox 95 O2 Delivery Room Air O2 Flow Rate 2.00 FiO2 24 Capillary Refill : Less Than 3 SecondsLess Than 3 Seconds I&O Intake and Output 01/27/20 00:00 Intake Total 2940 ml Balance 2940 ml Intake Oral 1940 ml IV Total 1000 ml # Voids 12 # Bowel Movements 1 General: Alert, Cooperative, No Acute Distress, Other (confused) HEENT: Atraumatic, PERRLA Neck: Supple, No JVD, No Thyromegaly Lungs: Clear to Auscultation, Normal Air Movement Heart: Regular Rate, Normal S1, Normal S2, Other (systolic murmur at the left sternal border) Abdomen: Normal Bowel Sounds, Soft, No Tenderness, No Hepatosplenomegaly, No Masses Extremities: No Clubbing, No Cyanosis, No Edema, Normal Pulses, No Tenderness/Swelling Skin: No Rashes, No Breakdown, No Significant Lesion Neuro: Normal Speech, Normal Tone, Sensation Intact, Other (confused) Results Lab Laboratory Tests 01/27/20 05:12 A/P-Cardiology Admission Diagnosis Pneumonia Type II [place] Sepsis Acute renal failure Assessment/Plan Confusion, agitation, receiving sedation, continue to have some improvement today, managed by primary care team Status post respiratory failure, better at this time, managed by primary care team Mild elevation in liver enzymes. Some improvement today. Continue to monitor Gram-positive bacteremia, MARCY was done on January 16, 2020 showing normal LV size and function, no vegetation on any valvular structure, heavily calcified mitral valve with moderate to severe mitral regurgitation, prosthetic valve in the aortic position functioning normally with no vegetation, tricuspid and pulmonic valve are normal, normal aorta Pneumonia, Streptococcus in the blood culture, managed by primary care team Sepsis, managed by primary care team and painter plate. Type II [place], secondary to respiratory failure. Continue with conservative m anagement History of bovine aortic valve replacement, MARCY was done on January 16, 2020, prosthetic valve is functioning normally. Congestive heart failure, acute on chronic left ventricular diastolic d ysfunction, normal systolic function. Hypernatremia, continue to hold lasix, continue to monitor. Acute on chronic renal failure. Continue to monitor renal function Hypertension, monitor blood pressure Questionable history of second-degree Mobitz 1 block. Asymptomatic at this time. COVID exposure, tested negative Clinical Quality Measures DVT/VTE Risk/Contraindication: Risk Factor Score Per Nursin RFS Level Per Nursing on Admit: 3=High WHIT ESCALANTE MD Jan 27, 2020 12:47 pm
[2020-01-27 15:54] VITALS: BP 133/80
[2020-01-27 19:08] VITALS: BP 103/58
[2020-01-28 04:47] VITALS: BP 130/78
[2020-01-28 05:43] LABS: HEMOGLOBIN 11.8 G/DL (13.3-17.7); MEAN PLATELET VOLUME 12.1 FL (7.4-10.4); RED CELL DISTRIBUTION WIDTH 15.4 % (10.0-14.5); WHITE BLOOD COUNT 12.2 10^3/uL (4.3-11.0)
[2020-01-28] MEDS: inSUlin ASPART (NovoLOG) 1 UNIT/0.01 ML (CHARGE PER UNIT) SC SCH ×3 (06:00→12:45)
[2020-01-28 06:07] LABS: ALBUMIN 2.9 GM/DL (3.2-4.5); CHLORIDE 109 MMOL/L (98-107); POTASSIUM 3.6 MMOL/L (3.6-5.0); SODIUM 139 MMOL/L (135-145)
[2020-01-28 06:08] LABS: CALCIUM 8.3 MG/DL (8.5-10.1)
[2020-01-28 06:09] LABS: GLUCOSE 109 MG/DL (70-105)
[2020-01-28 06:10] LABS: TOTAL PROTEIN 5.1 GM/DL (6.4-8.2)
[2020-01-28 06:11] LABS: BILIRUBIN,TOTAL 2.1 MG/DL (0.1-1.0); CARBON DIOXIDE 21 MMOL/L (21-32)
[2020-01-28 06:13] LABS: ALKALINE PHOSPHATASE 57 U/L (40-136); CREATININE SERUM 0.99 MG/DL (0.60-1.30); GFR ESTIMATED > 60
[2020-01-28 06:14] LABS: BUN/CREATININE RATIO 25
[2020-01-28 06:16] LABS: ALANINE AMINOTRANSFERASE 109 U/L (0-55)
--- NOTE | 2020-01-28 08:00 | Progress Note ---
Subjective Subjective Date Seen by Provider: Jan 28, 2020 Time Seen by Provider: 07:56 PT WAS RESTING BUT EASILY AROUSED. HE DID RESPOND TO A FEW QUESTIONS DENYING ANY PAIN. SITTER REPORTS HE GETS AGITATED AT TIMES TRYING TO GET OUT OF BED, AND IS RESTLESS THROUGH THE NIGHT. HE HAS HAD SEVERAL BOWEL MOVEMENTS AND HAS BEEN ABLE TO EAT SMALL PORTIONS OF HIS MEALS. SITTER REPORTS THAT HE WAS SITTING IN THE CHAIR YESTERDAY AND A NURSE REPORTS THAT HE WAS ABLE TO TALK SOME WITH HIS SON LAST NIGHT. THE NURSE REPORTS THAT HE GETS AGGRESSIVE IN THE EVENING AND NIGHTS. SHE STATES THAT THE ATIVAN HAS NOT HELPED MUCH. Review of Systems ROS Unable to Obtain: PT CONFUSED, BUT DENIES ANY ISSUES Neurological: Weakness, Confusion All Other Systems Reviewed All Other Systems Reviewed: Yes Objective Exam Vital Signs Vital Signs - First Documented 01/22/20 01/22/20 00:00 08:00 Temp 36.0 Pulse 81 Resp 16 B/P (MAP) 159/77 (104) Pulse Ox 91 O2 Delivery High Flow N/C O2 Flow Rate 6.00 Capillary Refill : Less Than 3 SecondsLess Than 3 Seconds General Appearance: WD/WN, Other (PT WEAK, PT CONFUSED,) Eyes: Bilateral Eye PERRL HEENT: Moist Mucous Membranes, Other (hard of hearing) Neck: Normal Inspection, Supple Respiratory: Lungs Clear, Decreased Breath Sounds, Other Cardiovascular: Regular Rate, Rhythm, Normal Peripheral Pulses, Systolic Murmur, Other (irregular) Gastrointestinal: Normal Bowel Sounds, Non Tender, Soft Extremity: Normal Capillary Refill Neurologic/Psychiatric: No Facial Droop; Other (CONFUSION, WEAKNESS, AGITATED) Skin: Normal Color, Warm/Dry Results Lab Laboratory Tests 01/27/20 12:19: Glucometer 103 01/27/20 17:38: Glucometer 108 01/28/20 05:07: White Blood Count 12.2H, Red Blood Count 3.89L, Hemoglobin 11.8L, Hematocrit 36L , Mean Corpuscular Volume 91, Mean Corpuscular Hemoglobin 30, Mean Corpuscular Hemoglobin Concent 33, Red Cell Distribution Width 15.4H, Platelet Count 152, Mean Platelet Volume 12.1H, Sodium Level 139, Potassium Level 3.6, Chloride Level 109H, Carbon Dioxide Level 21, Anion Gap 9, Blood Urea Nitrogen 25H, Creatinine 0.99, Estimat Glomerular Filtration Rate > 60, BUN/Creatinine Ratio 25, Glucose Level 109H, Calcium Level 8.3L, Corrected Calcium 9.2, Total Bilirubin 2.1H, Aspartate Amino Transf (AST/SGOT) 65H, Alanine Aminotransferase (ALT/SGPT) 109H, Alkaline Phosphatase 57, Total Protein 5.1L, Albumin 2.9L Microbiology 01/14/20 MRSA Screen - Final, Complete MRSA not isolated 01/12/20 Blood Culture - Final, Complete No growth Assessment/Plan Assessment/Plan Assessment and Plan RESPIRATORY DISTRESS WITH PNEUMONIA ON CXR - ON IV ZOSYN, - OXYGEN DISCONTINUED, PT O2 SATURATION GOOD ON ROOM AIR - CONTINUE WITH SUPPORTIVE CARE LYMPHOCYTOSIS SEPSIS - IMPROVED - CONTINUE TO MONITOR ACUTE ON CHRONIC RENAL INSUFFICIENCY - SUPPORTIVE CARE WITH FLUIDS - RENAL FUNCTION IMPROVED. HYPERNATREMIA - CONTINUE TO HOLD LASIX, WILL MONITOR FOR FLUID OVERLOAD CHANGES - IF NEEDED LASIX WILL INITIATE 20MG DAILY. ANEMIA -STABLE - CONTINUE TO MONITOR. HYPERTENSION - STABLE - CONTINUE TO MONITOR DIABETES MELLITUS - PT ON SLIDING SCALE CONFUSION -MEDICATIONS WERE DISCONTINUED WITH SLIGHT IMPROVEMENT IN MENTATION SINCE -PT APPEARS TO BE SUNDOWNING AND MAY REQUIRE SCHEDULED MEDICATION -CONSIDER MRI TO RULE OUT NEUROLOGICAL CAUSES PT NEEDS THERAPY - TO BE DISCHARGED TODAY TO [facility] WITH FAMILY PROVIDED SITTER FOR PT UNTIL CONFUSION AND AGITATION IMPROVE. COVID-19 NEGATIVE. Problems: (1) Debility (2) Hypernatremia (3) Anemia (4) Elevated LFTs (5) T2DM (type 2 diabetes mellitus) (6) Pneumonia Qualifiers: Qualified Codes: J18.1 - Lobar pneumonia, unspecified organism (7) Leukocytosis Qualifiers: Qualified Codes: D72.823 - Leukemoid reaction (8) Acute kidney injury superimposed on chronic kidney disease Clinical Quality Measures DVT/VTE Risk/Contraindication: Risk Factor Score Per Nursin RFS Level Per Nursing on Admit: 3=High [facility] Jan 28, 2020 08:00
[2020-01-28 08:38] VITALS: BP 148/86
--- NOTE | 2020-01-28 08:47 | Cardiology Progress Note ---
Subjective Date Seen by Provider: Jan 28, 2020 Time Seen by Provider: 08:46 Subjective/Events-last exam Patient is resting comfortably in bed, NAD. Review of Systems General: No Chills, No Night Sweats; Fatigue, Malaise; No Appetite, No Other HEENT: No Head Aches, No Visual Changes, No Eye Pain, No Ear Pain, No Dysphasia, No Sinus Congestion, No Post Nasal Drip, No Sore Throat, No Other Pulmonary: Dyspnea; No Cough, No Pleuritic Chest Pain, No Other Cardiovascular: No: Chest Pain, Palpitations, Orthopnea, Paroxysmal Noc. Dyspnea, Edema, Lt Headedness, Other Focused Exam Time of Focused Exam: 20:00 Objective-Cardiology Exam Last Set of Vital Signs Vital Signs 01/27/20 01/28/20 01/28/20 19:16 08:38 08:48 Temp 36.1 Pulse 84 Resp 22 B/P (MAP) 148/86 (106) Pulse Ox 95 O2 Delivery Room Air O2 Flow Rate 2.00 Capillary Refill : Less Than 3 SecondsLess Than 3 Seconds I&O Intake and Output 01/28/20 00:00 Intake Total 900 ml Balance 900 ml Intake Oral 900 ml # Voids 11 # Bowel Movements 1 General: Alert, Cooperative, No Acute Distress, Other (confused) HEENT: Atraumatic, PERRLA Neck: Supple, No JVD, No Thyromegaly Lungs: Clear to Auscultation, Normal Air Movement Heart: Regular Rate, Normal S1, Normal S2, Other (systolic murmur at the left sternal border) Abdomen: Normal Bowel Sounds, Soft, No Tenderness, No Hepatosplenomegaly, No Masses Extremities: No Clubbing, No Cyanosis, No Edema, Normal Pulses, No Tenderness/Swelling Skin: No Rashes, No Breakdown, No Significant Lesion Neuro: Normal Speech, Normal Tone, Sensation Intact, Other (confused) Results Lab Laboratory Tests 01/28/20 05:07 A/P-Cardiology Admission Diagnosis Pneumonia Type II [place] Sepsis Acute renal failure Assessment/Plan Confusion, agitation, continue to have some improvement, managed by primary care team Status post respiratory failure, better at this time, managed by primary care team Mild elevation in liver enzymes. Continue to monitor Gram-positive bacteremia, MARCY was done on January 16, 2020 showing normal LV size and function, no vegetation on any valvular structure, heavily calcified mitral valve with moderate to severe mitral regurgitation, prosthetic valve in the aortic position functioning normally with no vegetation, tricuspid and pulmonic valve are normal, normal aorta Pneumonia, Streptococcus in the blood culture, improving, managed by primary care team Sepsis, improved, managed by primary care team and principal biostatistician. Type II [place], secondary to respiratory failure. Continue with conservative management History of bovine aortic valve replacement, MARCY was done on January 16, 2020, prosthetic valve is functioning normally. Congestive heart failure, acute on chronic left ventricular diastolic dysfunction, normal systolic function. Hypernatremia, improved, continue to hold lasix, continue to monitor. Acute on chronic renal failure. Continue to monitor renal function Hypertension, monitor blood pressure Questionable history of second-degree Mobitz 1 block. Asymptomatic at this time. COVID exposure, tested negative Clinical Quality Measures DVT/VTE Risk/Contraindication: Risk Factor Score Per Nursin RFS Level Per Nursing on Admit: 3=High RHONA ORNELAS Jan 28, 2020 8:47 am WHIT ESCALANTE MD Jan 28, 2020 9:58 am
[2020-01-28] MEDS ORDERED: MELA5TAB14 PO (09:04)
[2020-01-28] MEDS ORDERED: LORA-404 PO (09:04)
--- NOTE | 2020-01-28 09:07 | Discharge Inst-Skilled Nursing ---
Discharge Inst-Skilled NF Reconcile Patient Problems Problems Reviewed?: Yes Patient Instructions Patient Problems: DELIRIUM DIABETES INSOMNIA SUNDOWNING HX AORTIC STENOSIS WITH VALVE REPLACEMENT ADVANCED AGE WEAKNESS Consult/Follow Up/Orders Follow Up Appt.: 1 WK [employer] [facility] Skilled NF [facility]: [facility] (SNF) I certify that SNF services are required to be given on an inpatient basis because of the above named patient's need for long term care on a continuing basis for the conditions(s) for which he/she was receiving inpatient hospital services prior to his/her transfer to the SNF. [facility] Facility Order: Nursing Services, Director Technical-Evaluate & Treat, Physical Therapy-Evaluate & Treat, Speech Language-Evaluate & Treat Oxygen Delivery Method: Room Air Discharge Diet: Regular Diet Daily Activity as Tolerated: Yes Resuscitation Status: Partial Code (DO NOT INTUBATE) New & Resume Previous Orders Nathaniel A Floyd Jan 28, 2020 09:05 Pneu Vac Indicated: Yes Medication List: Active Scripts Active Melatonin 5 Mg Tablet 5 Mg PO HS Ativan (Lorazepam) 0.5 Mg Tablet 0.25 Mg PO TID PRN Reported Vitamin E 1,000 Unit Capsule 1,000 Unit PO HS Probiotic & Acidophilus Cap (Lactobac Cmb #3/Fos/Pantethine) 1 Each Capsule 1 Each PO HS Aspirin EC (Aspirin) 81 Mg Tablet. 81 Mg PO BID Multivitamin 1 Each Tablet 1 Each PO DAILY Vitamin D3 (Cholecalciferol (Vitamin D3)) 25 Mcg Capsule 25 Mcg PO DAILY Pravastatin Sodium 10 Mg Tablet 10 Mg PO HS Pioglitazone HCl 45 Mg Tablet 45 Mg PO DAILY Flomax (Tamsulosin HCl) 0.4 Mg Cap 0.4 Mg PO HS Myrbetriq (Mirabegron) 50 Mg Tab.er.24h 50 Mg PO HS Omeprazole 20 Mg Capsule. 20 Mg PO DAILY Zolpidem Tartrate ER (Zolpidem Tartrate) 6.25 Mg Tab.mphase 6.25 Mg PO HS Lab results: Laboratory Tests Test 01/27/20 12:19 01/27/20 17:38 01/28/20 05:07 Range/Units Glucometer 103 108 70-110 MG/DL White Blood Count 12.2 H 4.3-11.0 10^3/uL Red Blood Count 3.89 L 4.35-5.85 10^6/uL Hemoglobin 11.8 L 13.3-17.7 G/DL Hematocrit 36 L 40-54 % Mean Corpuscular Volume 91 80-99 FL Mean Corpuscular Hemoglobin 30 25-34 PG Mean Corpuscular Hemoglobin Concent 33 32-36 G/DL Red Cell Distribution Width 15.4 H 10.0-14.5 % Platelet Count 152 130-400 10^3/uL Mean Platelet Volume 12.1 H 7.4-10.4 FL Sodium Level 139 135-145 MMOL/L Potassium Level 3.6 3.6-5.0 MMOL/L Chloride Level 109 H 98-107 MMOL/L Carbon Dioxide Level 21 21-32 MMOL/L Anion Gap 9 5-14 MMOL/L Blood Urea Nitrogen 25 H 7-18 MG/DL Creatinine 0.99 0.60-1.30 MG/DL Estimat Glomerular Filtration Rate > 60 BUN/Creatinine Ratio 25 Glucose Level 109 H 70-105 MG/DL Calcium Level 8.3 L 8.5-10.1 MG/DL Corrected Calcium 9.2 8.5-10.1 MG/DL Total Bilirubin 2.1 H 0.1-1.0 MG/DL Aspartate Amino Transf (AST/SGOT) 65 H 5-34 U/L Alanine Aminotransferase (ALT/SGPT) 109 H 0-55 U/L Alkaline Phosphatase 57 40-136 U/L Total Protein 5.1 L 6.4-8.2 GM/DL Albumin 2.9 L 3.2-4.5 GM/DL My orders: Orders - NATHANIEL OLIVA MD Attending Discharge Inpt/Inobs (01/28/20 09:01) NATHANIEL OLIVA MD Jan 28, 2020 09:07
--- NOTE | 2020-01-28 09:09 | Discharge Summary ---
Diagnosis/Chief Complaint Date of Admission Jan 12, 2020 at 20:30 Date of Discharge Discharge Date: Jan 28, 2020 Discharge Time: 1300 Discharge Summary Discharge Physical Examination Allergies: Coded Allergies: No Known Drug Allergies (Unverified , 07/13/17) Vitals & I&Os Vital Signs Date Time Temp Pulse Resp B/P (MAP) Pulse Ox O2 Delivery O2 Flow Rate FiO2 01/28/20 08:48 Room Air 01/28/20 08:38 36.1 84 22 148/86 (106) 95 01/27/20 19:16 2.00 Hospital Course Pending Labs Laboratory Tests 01/28/20 05:07: White Blood Count 12.2, Red Blood Count 3.89, Hemoglobin 11.8, Hematocrit 36, Mean Corpuscular Volume 91, Mean Corpuscular Hemoglobin 30, Mean Corpuscular Hemoglobin Concent 33, Red Cell Distribution Width 15.4, Platelet Count 152, Mean Platelet Volume 12.1, Sodium Level 139, Potassium Level 3.6, Chloride Level 109, Carbon Dioxide Level 21, Anion Gap 9, Blood Urea Nitrogen 25, Creatinine 0. 99, Estimat Glomerular Filtration Rate > 60, BUN/Creatinine Ratio 25, Glucose Level 109, Calcium Level 8.3, Corrected Calcium 9.2, Total Bilirubin 2.1, Aspartate Amino Transf (AST/SGOT) 65, Alanine Aminotransferase (ALT/SGPT) 109, Alkaline Phosphatase 57, Total Protein 5.1, Albumin 2.9 Discharge Instructions to patient/family Please see electronic discharge instructions given to patient. Discharge Medications Reviewed and agree with Discharge Medication list on patient's Discharge Instruction sheet Clinical Quality Measures DVT/VTE Risk/Contraindication: Risk Factor Score Per Nursin RFS Level Per Nursing on Admit: 3=High NATHANIEL OLIVA MD Jan 28, 2020 09:09
[2020-01-28] MEDS ORDERED: LORazepam INJ 2 MG/ML (ATIVAN) VIAL IM ONE (11:30)
--- NOTE | 2020-01-28 11:42 | NUR ---
FLORENTIN discharge. Plan: [facility]emergent EMS. SEBASTIAN/RAOUL faxed finalized discharge, updated clinical, and script to the facility. FLORENTIN spoke with Qiana and informed her of patient getting an MRI today; therefore, discharge may happen later in the afternoon. She verbalized understanding and asked for a call when patient will be heading over. SEBASTIAN/RAOUL contacted the patients Shyla to inform her of plans for discharge. She verbalized understanding and wanted to discuss skilled Medicare benefits. FLORENTIN answered questions to best ability. Shyla reports she would like a call at time of discharge to meet patient at facility. Addendum: 01/28/20 at 1324 by HANNAH VAN Non-emergent EMS was contacted for pharmacy picking technician. SEBASTIAN/RAOUL contacted [facility] and patients Shyla to give update. No further needs at this time.
--- NOTE | 2020-01-28 12:48 | NUR ---
CALLED KRISTY HERNANDEZ AT [facility].
--- NOTE | 2020-01-28 13:09 | Diagnostic Imaging Report ---
PROCEDURE: MR imaging of the brain without contrast. TECHNIQUE: Multiplanar, multisequence MR imaging of the brain was performed without contrast. INDICATION: Altered mental status. FINDINGS: The study is extremely compromised and nearly uninterpretable due to patient motion. There is a questionable tiny area of diffusion restriction in the high left posterior parietal lobe. No large territory diffusion restriction is seen. No midline shift is identified. Normal expected flow-voids in the carotid siphons are noted. Only limited sequences were performed. No gradient sequences were obtained to evaluate for hemorrhage. IMPRESSION: Extremely compromised and limited noncontrast MRI of the brain. There are findings suspicious for an acute/subacute microinfarcts in the high left posterior parietal lobe. Repeat MRI could be performed once the patient is more clinically able to tolerate. Results were discussed with Dr. Barrientos prior to this dictation. Dictated by: Dictated on workstation # [id number]
[2020-01-28 13:20] VITALS: BP 148/86
[2020-01-29] MEDS ORDERED: CARVEDILOL 12.5 MG (COREG) TABLET ONE (00:36)
== END 2020-01-28 13:10 | DRG 871 ==
LOC: EDUNIT# 18:52 → ER 18:53 → ICU 20:30 → 4TH 01-19 12:28 → ICU 01-21 05:18 → 4TH 01-21 12:52
PROVIDERS: ADMIT Family Medicine; ATTEND Family Medicine
DX: A41.9 Sepsis, unspecified organism (principal); J96.00 Acute respiratory failure, unspecified whether with hypoxia or hypercapnia; J13 Pneumonia due to Streptococcus pneumoniae; I21.A1 Myocardial infarction type 2; I50.33 Acute on chronic diastolic (congestive) heart failure; N17.9 Acute kidney failure, unspecified; E87.0 Hyperosmolality and hypernatremia; E87.2 Acidosis; I13.0 Hypertensive heart and chronic kidney disease with heart failure and stage 1 through stage 4 chronic kidney disease, or unspecified chronic kidney disease; R65.20 Severe sepsis without septic shock; N18.9 Chronic kidney disease, unspecified; R55 Syncope and collapse; E78.00 Pure hypercholesterolemia, unspecified; E11.22 Type 2 diabetes mellitus with diabetic chronic kidney disease; M19.91 Primary osteoarthritis, unspecified site; H91.90 Unspecified hearing loss, unspecified ear; Z20.828 Contact with and (suspected) exposure to other viral communicable diseases; S51.011A Laceration without foreign body of right elbow, initial encounter; F41.9 Anxiety disorder, unspecified; W19.XXXA Unspecified fall, initial encounter; Y92.009 Unspecified place in unspecified non-institutional (private) residence as the place of occurrence of the external cause; I25.2 Old myocardial infarction; Z95.2 Presence of prosthetic heart valve; Z87.891 Personal history of nicotine dependence
CPT/HCPCS: 36415; 36600; 70551; 71045; 74018; 74019; 80048; 80053; 80069; 80076; 81000; 82550; 82553; 82805; 82962; 83605; 83615; 83735; 83874; 83880; 84100; 84145; 84443; 84484; 85007; 85025; 85027; 85379; 85610; 85652; 85730; 86141; 86769; 87040; 87077; 87081; 87181; 87184; 87635; 93005; 93041; 93312; 93320; 93325; 94640; 94660; 94664; 94760; 96361; 96365; 96372; 96375

== ENCOUNTER 2020-02-13 08:45 | Inpatient (IN) | payer MEDICARE, OTHER ==
[~2020-02-13] VITALS: Ht 180.3 cm; Wt 91.6 kg
[~2020-02-13 08:45] MED LIST changes: +ASPI-983 PO; +CHOL10007 PO; +LACT1CAP57 PO; +LORA-404 PO; +MELA5TAB14 PO; +MIRA50TA PO; +MULT-1136 PO; +OMEP20CA18 PO; +PIOG45TA65 PO; +PRAV10TA PO; +TMSL.4C PO; +VITA10007 PO; +ZOLP6.2525 PO
[2020-02-13] MEDS ORDERED: BISACODYL 10 MG SUPP (DULCOLAX) PR PRN (09:45)
[2020-02-13] MEDS ORDERED: ONDANSETRON 4 MG (ZOFRAN) ORAL DISSOLVE TAB PO PRN (09:45)
[2020-02-13] MEDS ORDERED: LOPERAMIDE 2 MG (IMODIUM) TABLET PO PRN (09:45)
[2020-02-13] MEDS ORDERED: DOCUSATE SODIUM 100 MG (COLACE) CAP PO PRN (09:45)
[2020-02-13] MEDS ORDERED: MELATONIN 3 MG TABLET PO PRN (09:45)
[2020-02-13] MEDS ORDERED: diphenhydrAMINE 25 MG TAB (BENADRYL) PO PRN (09:45)
[2020-02-13] MEDS ORDERED: CALCIUM CARBONATE 500 MG (TUMS) TAB.CHEW PO PRN (09:45)
[2020-02-13] MEDS ORDERED: LACTULOSE SYRUP 10GM/15ML (ENULOSE) 30ML UDC PO PRN (09:45)
[2020-02-13] MEDS ORDERED: guaiFENesin/CODEINE (ROBITUSSIN AC) 10ML UDC PO PRN (09:45)
[2020-02-13] MEDS ORDERED: ALPRAZolam 0.25 MG (XANAX) TAB PO PRN (09:45)
[2020-02-13] MEDS ORDERED: FLEET ENEMA ADULT 1 EA BTL PR PRN (09:45)
[2020-02-13] MEDS ORDERED: ACETAMINOPHEN 500 MG TAB (TYLENOL) PO PRN (09:45)
--- NOTE | 2020-02-13 10:35 | NUR ---
RigobertoIgor rodriguez admitted to room 229-1, with an admitting diagnosis of critical illness myopathy, on 02/13/20 from [facility] via private vehicle, accompanied by . IGOR BARAKAT introduced to surroundings, call light, bed controls, phone, TV, temperature control, lights, meal times, smoking policy, visitor policy, side rail policy, bathrooms and showers. Patient Rights given to patient in the handbook.IGOR BARAKAT verbalizes understanding that [facility] is not responsible for the loss or damage to any personal effects or valuables that are kept in the patients posession during their hospitalization. IGOR BARAKAT verbalizes understanding of Interdisciplinary Patient Education. Patient and/or family were informed about the Rapid Response Team and its purpose. Patient received Patient Rights Booklet, which includes Privacy Act Statement and Data Collection Information Summary.
[2020-02-13 10:57] VITALS: BP 104/58
--- NOTE | 2020-02-13 11:21 | Physical Therapy Evaluation ---
PT Evaluation-General Medical Diagnosis Admission Date Medical Diagnosis: critical illness myopathy Onset Date: Feb 13, 2020 Therapy Diagnosis Therapy Diagnosis: impaired mobility, strength, endurane, balance Referral Physician: Little Adamson DO Reason for Referral: Evaluation/Treatment Medical History Pertinent Medical History: DM, HTN, [place], Renal Insufficiency Additional Medical History aortic valve replacement Reviewed History: Yes Social History Home: [facility] Current Living Status: Spouse Entry Into Home: Stairs With Railing PT Steps Into Home: 5 Prior Prior Level of Function SCALE: Activities may be completed with or without assistive devices. 0-Rhlcboefnt-jfcyxry completes the activity by him/herself with no assistance from a helper. 5-Set-up or Clean-up Assistance-helper sets up or cleans up; patient completes activity. [place] assists only prior to or following the activity. 4-Supervision or Touching Assistance-helper provides verbal cues and/or touching/steadying and/or contact guard assistance as patient completes activity. Assistance may be provided throughout the activity or intermittently. 3-Partial/Moderate Assistance-helper does LESS THAN HALF the effort. [place] lifts, holds or supports trunk or limbs, but provides less than half the effort. 2-Substantial/Maximal Assistance-helper does MORE THAN HALF the effort. [place] lifts or holds trunk or limbs and provides more than half the effort. 6-Wisocdnlw-hdhxnp does ALL the effort. Patient does none of the effort to com plete the activity. Or, the assistance of 2 or more helpers is required for the patient to complete the activity. If activity was not attempted, code reason: 7-Patient Refused. 9-Not Applicable-not attempted and the patient did not perform the activity before the current illness, exacerbation or injury. 10-Not Attempted due to Environmental Limitations-(lack of equipment, weather restraints, etc.). 88-Not Attempted due to Medical Conditions or Safety Concerns. Bed Mobility: 6 Transfers (B,C,W/C): 6 Gait: 6 Stairs: 6 Indoor Mobility (Ambulation): Independent Stairs: Independent Patient was previously independent with mobility but has been in a facility for an extended time with impaired mobility. PT Evaluation-Current Subjective Patient in WC pre tx, agrees to PT, has no complaints of pain. Pt/Family Goals to be independent at home Objective Patient Orientation: Person, Confused, Place Patient has trouble answering questions about his health or history, wants his to answer. ROM/Strength ROM Lower Extremities WNL Strength Lower Extremities 4/5 gross BLE Sensory Hearing: Impaired Sensation Right Lower Extremit: Intact Sensation Left Lower Extremity: Intact Transfers Roll Left to Right (QC): 4 Sit to Lying (QC): 4 Lying to Sitting/Side of Bed(Q: 4 Sit to Stand (QC): 4 Chair/Whi-mg-Kvlgd Xfer(QC): 4 Toilet Transfer (QC): 4 Car Transfer (QC): 4 Patient performs bed mobility with SBA, supine <-> sit CGA, sit <-> stand CGA, transfers CGA, car transfer CGA. Patient needs occasional cues for direction or safety, some unsteadiness. Gait Does the Patient Walk?: Yes Mode of Locomotion: Walk Anticipated Mode of Locomotion: Walk Walk 10 feet (QC): 4 Walk 50 ft with 2 Turns(QC): 4 Walk 150 ft (QC): 4 Walking 10ft/uneven surface-QC: 4 Distance: 120', 150' Gait Assistive Device: FWW Comments/Gait Description Patient can ambulate 150' with a rolling walker with CGA (including 50' with at least 2 turns of 90 degrees and 10' over an uneven surface). Ambulation is slow and slightly unsteady but had no simon LOB. Wheelchair Training Does the Pt Use a Wheelchair?: No Wheel 50 ft with 2 turns (QC): 9 Wheel 150 ft (QC): 9 Stairs #of Steps: 1 1 Step (curb) (QC): 4 4 Steps (QC): 88 12 Steps (QC): 88 Walking Assistive Device: Walker Patient can go up and down 1 step using a rolling walker with CGA. Cues for foot placement and safety. Balance Sitting Static: Normal Sitting Dynamic: Normal Standing Static: Fair Standing Dynamic: Fair Picking up an Object (QC): 88 Assessment/Needs Patient has impaired mobility, strength, endurance, balance. He is unsteady with ambulation, needs CGA and a rolling walker. OT here to perform eval right after PT. Rehab Potential: Fair PT Short Term Goals Short Term Goals Time Frame: Feb 20, 2020 Roll Left & Right: 5 Sit to lyin Lying to sitting on side of be: 5 Sit to stand: 5 Chair/asd-us-ayetk transfer: 5 Walk 10 feet: 5 Walk 50 feet with two turns: 5 Walk 150 feet: 5 PT Custodial Goals Custodial Goals PT Custodial Goals Time Frame: Mar 05, 2020 Roll Left & Right (QC): 6 Sit to Lying (QC): 6 Lying-Sitting on Side/Bed(QC): 6 Sit to Stand (QC): 6 Chair/Dca-bl-Skkxk Xfer(QC): 6 Toilet Transfer (QC): 6 Car Transfer (QC): 6 Does the Patient Walk: Yes Walk 10 feet (QC): 6 Walk 50ft with 2 Turns (QC): 6 Walk 150 ft (QC): 6 Walking 10ft on Uneven Surface: 6 1 Step (curb) (QC): 4 4 Steps (QC): 4 12 Steps (QC): 4 Picking up an Object (QC): 4 Wheel 50 feet with 2 turns (QC: 9 Wheel 150 feet: 9 PT Plan Problem List Problem List: Activity Tolerance, Functional Strength, Safety, Balance, Gait, Transfer, Bed Mobility, ROM Treatment/Plan Treatment Plan: Continue Plan of Care Treatment Plan: Bed Mobility, Education, Functional Activity Jean, Functional Strength, Group Therapy, Gait, Safety, Therapeutic Exercise, Transfers Treatment Duration: Mar 05, 2020 Frequency: At least 5 of 7 days/Wk (IRF) Estimated Hrs Per Day: 1.5 hours per day Patient and/or Family Agrees t: Yes Safety Risks/Education Patient Education: Gait Training, Transfer Techniques, Steps, Correct Positioning, Safety Issues Teaching Recipient: Patient Teaching Methods: Demonstration, Discussion Response to Teaching: Reinforcement Needed Discharge Recommendations Plan Patient will perform bed mobility and transfer training, balance and endurance training, functional strengthening, stair training, gait training, and education, to improve functional mobility and independence at home. Therapy Discharge Recommendati: Home & Family Time/GCodes Time In: 1035 Time Out: 1045 Total Billed Treatment Time: 10 Total Billed Treatment 1 visit AMINTA CARBAJAL PT Feb 13, 2020 11:21
--- NOTE | 2020-02-13 11:45 | Occupational Therapy Eval ---
OT Evaluation-General/PLF Medical Diagnosis Admission Date Medical Diagnosis: critical illness myopathy Onset Date: Feb 13, 2020 Therapy Diagnosis Therapy Diagnosis: Decreased ADL status Precautions Precautions/Isolations: Fall Prevention, Standard Precautions Referral Physician: Little Adamson DO Referral Reason: Activity Tolerance, Self Care, Evaluation/Treatment, Strengthening/ROM Medical History Pertinent Medical History: DM, HTN, DC, Renal Insufficiency Additional Medical History sizure disorder, high cholesterol, HTN, valvular heart disease, CHF, CBP, neuropathy, DMII, OA, aortic valve replacement. Current History Pt admitted to ER from home 01/11 with c/o weakness. Pt admitted to [facility] post-acute care, admits to ARU 02/12 with critical illness myopathy. Reviewed History: Yes Social History Home: Multilevel Current Living Status: Spouse Entry Into Home: Stairs With Railing Steps Into Home: 5 Steps Inside Home: 17 states must learn to take 17 steps to bedroom. ADL-Prior Level of Function SCALE: Activities may be completed with or without assistive devices. 1-Fxwyyaktsg-lrwbfkq completes the activity by him/herself with no assistance from a helper. 5-Set-up or Clean-up Assistance-helper sets up or cleans up; patient completes activity. [place] assists only prior to or following the activity. 4-Supervision or Touching Assistance-helper provides verbal cues and/or touching/steadying and/or contact guard assistance as patient completes activity. Assistance may be provided throughout the activity or intermittently. 3-Partial/Moderate Assistance-helper does LESS THAN HALF the effort. [place] lifts, holds or supports trunk or limbs, but provides less than half the effort. 2-Substantial/Maximal Assistance-helper does MORE THAN HALF the effort. [place] lifts or holds trunk or limbs and provides more than half the effort. 3-Zrhwyjmar-oozobn does ALL the effort. Patient does none of the effort to comp lete the activity. Or, the assistance of 2 or more helpers is required for the patient to complete the activity. If activity was not attempted, code reason: 7-Patient Refused. 9-Not Applicable-not attempted and the patient did not perform the activity before the current illness, exacerbation or injury. 10-Not Attempted due to Environmental Limitations-(lack of equipment, weather restraints, etc.). 88-Not Attempted due to Medical Conditions or Safety Concerns. ADL PLOF Comments Pt states IND with I/ADLs with use of walker "sometimes". Self Care: Independent Functional Cognition: Independent DME/Equipment: Bath Chair, Grab Bars, Tub/Shower DME/Equipment Comments walker, tub/shower down stairs with sc and gbs. Upstairs= master bedroom. 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 Drive Self: Yes OT Current Status Subjective Pt brought to ARU by therapy/ accompanies. Pt admits from [facility] with myopathy. Pt denies pain, agreeable to OT/ PT co-treat. Pt alert/ oriented. Pt has word finding problems through session, states tired and requests to lay down 3x during treatment. Pt very SAMISH. PT eval: [id number] OT eval: [id number] OT/ PT cotreat: [id number] OT individual tx: [id number] OT individual tx: [id number]: Pt seen in bed asleep. Pt wakes with verbal entry. Pt reluctantly agreeable to therapy, requires reeducation on purpose of therpy. Pt oriented, though not able to remember what OT/ pt did this am. Pt is reminded of activities, pt states, "Oh ya," and requests back to bed. Pt given schedule for OT tx session for reminder of time remaining and this is referenced 2x during session. Mental Status/Objective Patient Orientation: Person, Place, Situation Current Glasses/Contacts: Yes (reading) Hearing Aids: Yes (bilateral, not wearing but encouraged to wear.) Dentures/Partials: Yes (at home.) Hand Dominance: Right Upper Extremity ROM WFL BUE Upper Extremity Coordination WFL BUE Upper Extremity Sensation WFL BUE per pt. Upper Extremity Strength WFL BUE (4/5) ADL-Treatment Eating (QC): 6 (completes drinking/ bringing items to mouth with IND.) Oral Hygiene (QC): 7 (denies at this time due to no dentation. ) Shower/Bathe Self (QC): 7 (denies at this time as he "doesn't feel like showering right now," due to fatigue. ) Upper Body Dressing (QC): 5 (based on clinical judgmenet and UE movement, pt s/u for shirt don/ doffing. ) Lower Body Dressing (QC): 3 (Pt requires Jass for UB jacket donning EOB. ) On/Off Footwear (QC): 4 (Pt is SBA with sock/ shoe donning and doffing. ) Toileting Hygiene (QC): 4 (Pt completes BM during session (CGA for toilet transfer with cues for safety), pt states "I think I got it all wiped up," requires cues for continuation.) Other Treatments Pt pushed from ER entrance to ARU. Pt educated on OT role and ARU expectations. Pt denies pain. Pt agrees to tx. PT eval: [id number] OT eval: [id number]: Pt completes ambulation with CGA/ use of 4WW. Pt has minimal episodes of LOB. Pt provides hx with accuracy, assists with some environmental details of home. Pt's ROM/ MMT WFL. Pt becomes slightly SOB with ambulation tasks. OT/ PT cotreat: [id number]: Pt requests to lie down, denies dizziness. Pt's BP assessed in supine: 130/64, in sit: 128/59, and in stance: 90/51. Pt denies dizzy/ lightheadedness. Pt returns to sit. completes LB/ UE ther ex. Pt educated on use of theraband for functional activity strengthening and endurance training. Pt understands, completes 15 reps bilaterally of back flies and bicep curls. Pt able to maintain attention with min cues in distractible environment. Pt has glasses and hearing aides in room. OT requests pt utilizes hearing aides. Pt attempts to place without batteries in. Pt educated on no batteries, pt given with batteries in- pt denies use. Pt maintains conversation during session, searches for words multiple times, stating, "You'll have to ask ()." Pt requests to lie down again, returns to supine on mat. Pt states he takes multiple naps during the day, does not abide by set sleeping schedule. Pt states, "I'm 84, I don't need anyone telling me what to do. I do whatever." Pt educated on continued benefits of therapy and ultimate goals of returning to PLOF and home. pt nods, then later states, "If you tell me what your job includes, I may do something." Pt re-educated on therapy role and goals. Pt requests bed, pt's standing BP assessed once more: 85/55. Pt wheeled back to room. OT individual tx: [id number]: Pt completes BM (CGA for toilet transfer, education on safety and use of call light for use of bathroom/ standing." Pt nods, present. provides additional environmental barriers, states must learn to take 17 steps to bedroom. Pt returns to bed with SBA, immediately closes eyes. All needs met, call light in reach. Pt educated on OT return at 1. 5381-1149: Pt seen in bed. Completes bed mob with SBA, dons jacket with min A. Pt sits EOB to complete functional cognitive task: pt is asked to find what he is eating for dinner on menu. Pt able to scan menu, then states, "I don't know what I'm doing." Pt asked to see what was for dinner for Tuesday night. Pt states, "where?" Gestural cues given to "Dinner" menu. Pt able to locate and state what is for dinner tonight. Pt educated on alternate menu if desire different meal. Pt given theraband and cues; pt completes horizontal ab/ adduction ex with cues and back flies bilaterally (15 reps each). Pt states he is tired and wants to go back to sleep. pt encouraged to participate in skilled session as he needs to get stronger to return home. Pt is agreeable. pt states desire to walk to "door and back," completes 2x with CGA and walker. pt denies bathroom need at this time. Placement of chair alarm in chair, pt sits in chair. Pt completes 2 sets of 15 reps of BUE exercises with cues for continuation of task throughout. Pt able to maintain conversation but requires increased time for though process. Pt left in chair with call light in reach, all needs met, chair alarm on, pt educated on use of call light again. Education OT Patient Education: Correct positioning, Exercise program, Home exercise program, Modified ADL techniques, Purpose of tx/functional activities, Rehab process, Safety issues, Transfer techniques Teaching Recipient: Patient Teaching Methods: Demonstration, Discussion Response to Teaching: Verbalize Understanding, Return Demonstration, Reinforcement Needed OT Short Term Goals Short Term Goals Time Frame: Feb 20, 2020 Upper body dressin Lower body dressin Putting on/taking off footwear: 6 OT Water Regulator And Valve Repairer Goals Water Regulator And Valve Repairer Goals Time Frame: Feb 27, 2020 Eating (QC): 6 Oral Hygiene (QC): 6 Toileting Hygiene (QC): 6 Shower/Bathe Self (QC): 6 Upper Body Dressing (QC): 6 Lower Body Dressing (QC): 6 On/Off Footwear (QC): 6 Additional Goals: 1-Demonstrate ADL Tasks, 2-Verbalize Understanding, 3- ImproveStrength/Jean 1=Demonstrate adherence to instructed precautions during ADL tasks. 2=Patient will verbalize/demonstrate understanding of assistive devices/modifications for ADL. 3=Patient will improve strength/tolerance for activity to enable patient to perform ADL's. OT Education/Plan Problem List/Assessment Assessment: Decreased Activ Tolerance, Decreased UE Strength, Impaired Funct Balance, Impaired I ADL's, Impaired Self-Care Skills Discharge Recommendations Plan/Recommendations: Continue POC Therapy Discharge Recommendati: Home & Family Treatment Plan/Plan of Care Treatment,Training & Education: Yes Patient would benefit from OT for education, treatment and training to promote independence in ADL's, mobility, safety and/or upper extremity function for ADL's. Plan of Care: ADL Retraining, Caregiver Training, Concurrent Therapy, Functional Mobility, Group Exercise/Act as Ind, UE Funct Exercise/Act, UE Neurom us Re-Ed/Coord Treatment Duration: Feb 27, 2020 Frequency: At least 5 of 7 days/Wk (IRF) Estimated Hrs Per Day: 1.5 hours per day Rehab Potential: Fair Time/GCodes Start Time: 10:45 Stop Time: 11:40 Total Time Billed (hr/min): 55 Billed Treatment Time PT eval: [id number] OT eval: 0532-8392 (10) OT/ PT cotreat: 6284-8388 (35) OT individual tx: 5689-4561 (10) 1, EVL (10), ADL (15), FA 2 (30)= 55 OT individual tx: 1448-1618 (35) 1, ADL, EX (35) Total: 90 min. FERMIN REID OTR Feb 13, 2020 11:45
--- NOTE | 2020-02-13 12:13 | Progress Note ---
CHRISTOPHER FRANCISCO MED STUDENT 02/13/20 1213: Progress Note History: Mr. Glez is an 84 year old male arriving in the IRF after being transferred from [facility]. He has a past medical history of HTN, bovine aortic valve replacement, and non insulin dependent DMII. He was transferred from [facility] to [facility] 01/27 after initially being admitted to [facility] 01/11 with fever and non-productive cough, dizziness, weakness, and a near-syncopal episode. He was admitted and diagnosed with pneumonia, acute respiratory failure, sepsis, and RUSTAM, and confusion was noted. He was found to have strep bacteremia. Tested negative for COVID. 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 He had abdominal distension requiring NG tube, which was removed 01/17. He was agitated and at times aggressive, particularly in the evenings and night time, requiring a sitter, and he was diagnosed with delirium prior to discharge. While at [facility], his delirium improved, but he experienced multiple falls. Several times he was found lying on the floor, and did not recall how he got there, but on one occasion he recalled sliding to the floor off the bed. He sustained no injuries due to these falls. [facility] reports that his cognition and strength improved during his stay, he advanced to a PO diet with good appetite, and he is able to ambulate with a walker. When seen today, he was alert and oriented, but hard of hearing leading to some confusion. He has no complaints, denies any fever, chills, CP, SOB, cough, abdominal pain, constipation, diarrhea, dysuria, hematuria, numbness, tingling, or paresthesias. Physical Exam: Alert and oriented, in no apparent distress -Eyes- PERRL/EOMI bilaterally -ENT- no neck tenderness, no lymphadenopathy -Cardiac- RRR, no murmur -Pulmonary- CTAB, no wheezes, no crackles -GI- normal bowel sounds, no abdominal tenderness, no masses palpated -Extremity- 2+ radial and pedal pulses, no LE edema -Neuro- special effects person strength 5+, 5+ strength pushing and pulling, 5+ ankle flexion/extension Assessment/Plan: Critical illness myopathy continue OT/PT DMII not on any medications at home at this time, monitor glucose HTN hypotensive today, not on any medications at home at this time CKD3 RUSTAM from prior hospitalization resolved, most recent creatinine at acceptable range. monitor kidney function HLPD not on any lipid lowering medication at this time Anemia stable when discharged, monitor if symptoms such as fatigue/pallor develop GERD taking omeprazole at home, consider giving as needed Neuropathy no complaints today Aortic valve replacement on aspirin 81 mg, MARCY January 15 showed valve was functioning appropriately hx of type II WA on aspirin 81 mg, monitor CP, SOB hx of near-syncopal event monitor BP, monitor for signs of orthostatic hypotension leading to dizziness, syncope LITTLE KOWALSKI DO 02/13/205: Supervisory-Addendum Brief Verification & Attestation Participated in pt care: history, MDM, physical Personally performed: exam, history, MDM, supervision of care Care discussed with: Medical Student Procedures: n/a Results interpretation: Verified all documentation Verification and Attestation of Medical Student E/M Service A medical student performed and documented this service in my presence. I reviewed and verified all information documented by the medical student and made modifications to such information, when appropriate. I personally performed the physical exam and medical decision making. Little Kowalski, Feb 13, 2020,21:34 CHRISTOPHER FRANCISCO MED STUDENT Feb 13, 2020 12:13 LITTLE KOWALSKI DO Feb 13, 2020 21:35
--- NOTE | 2020-02-13 12:59 | Physical Therapy Daily Note ---
PT Daily Note-Current Subjective Pt in therapy gym with OT upon arrival and agrees to co-treat. Pt is extremely tired, repeatedly stating he wants to nap. Pt very hard of hearing and didn't want to put in hearing aids. Mental Status Patient Orientation: Person, Place, Time, Situation Transfers SCALE: Activities may be completed with or without assistive devices. 8-Jlfrgcjrbx-anripsj completes the activity by him/herself with no assistance from a helper. 5-Set-up or Clean-up Assistance-helper sets up or cleans up; patient completes activity. [place] assists only prior to or following the activity. 4-Supervision or Touching Assistance-helper provides verbal cues and/or touching/steadying and/or contact guard assistance as patient completes activity. Assistance may be provided throughout the activity or intermittently. 3-Partial/Moderate Assistance-helper does LESS THAN HALF the effort. [place] lifts, holds or supports trunk or limbs, but provides less than half the effort. 2-Substantial/Maximal Assistance-helper does MORE THAN HALF the effort. [place] lifts or holds trunk or limbs and provides more than half the effort. 8-Kmoyjfgib-clcjte does ALL the effort. Patient does none of the effort to complete the activity. Or, the assistance of 2 or more helpers is required for the patient to complete the activity. If activity was not attempted, code reason: 7-Patient Refused. 9-Not Applicable-not attempted and the patient did not perform the activity before the current illness, exacerbation or injury. 10-Not Attempted due to Environmental Limitations-(lack of equipment, weather restraints, etc.). 88-Not Attempted due to Medical Conditions or Safety Concerns. Sit to Lying (QC): 5 Lying to Sitting/Side of Bed(Q: 5 Sit to Stand (QC): 5 Toilet Transfer (QC): 5 Wheelchair Training Does the Pt Use a Wheelchair?: Yes Exercises Seated Therapy Exercises: Long arc quads, Hip flexion Seated Reps: 12 Treatments Pt in gym upon arrival. Pt laid down on mat and BP was taken reading 130/64. Pt then sat up and BP was taken again reading at 128/59. Pt began UE and LE seated exercises. Pt doffed/donned shoe and sock as instructed by OT. Pt sit to stand, BP taken a third time reading at 90/51. Pt instructed to sit back down, pt per formed rest of seated exercises followed by standing again. BP was taken a final time at 88/55. Pt then transferred to SBA to be taken back to room instead of amb d/t decreased BP reading in stance. Co-treating OT decided this was best at this time. Pt uses restroom SBA then goes to bed at end of tx. PT focused on LE strengthening, positioning, and balance. OT focused on UE strengthening, positioning, and dressing. Assessment Current Status: Good Progress Pt has fair standing balance, strength, and endurance. Pt displayed orthostatic hypotension in standing and tx was stopped at that time. PT Short Term Goals Short Term Goals Time Frame: Feb 20, 2020 Roll Left & Right: 5 Sit to lyin Lying to sitting on side of be: 5 Sit to stand: 5 Chair/tzk-kj-lisuq transfer: 5 Walk 10 feet: 5 Walk 50 feet with two turns: 5 Walk 150 feet: 5 PT Panel Cutter Goals Panel Cutter Goals PT Panel Cutter Goals Time Frame: Mar 05, 2020 Roll Left & Right (QC): 6 Sit to Lying (QC): 6 Lying-Sitting on Side/Bed(QC): 6 Sit to Stand (QC): 6 Chair/Pvp-jn-Hernv Xfer(QC): 6 Toilet Transfer (QC): 6 Car Transfer (QC): 6 Does the Patient Walk: Yes Walk 10 feet (QC): 6 Walk 50ft with 2 Turns (QC): 6 Walk 150 ft (QC): 6 Walking 10ft on Uneven Surface: 6 1 Step (curb) (QC): 4 4 Steps (QC): 4 12 Steps (QC): 4 Picking up an Object (QC): 4 Wheel 50 feet with 2 turns (QC: 9 Wheel 150 feet: 9 PT Plan Problem List Problem List: Activity Tolerance, Functional Strength, Balance Treatment/Plan Treatment Plan: Continue Plan of Care Treatment Plan: Bed Mobility, Education, Functional Activity Jean, Functional Strength, Group Therapy, Gait, Safety, Therapeutic Exercise, Transfers Treatment Duration: Mar 05, 2020 Frequency: At least 5 of 7 days/Wk (IRF) Estimated Hrs Per Day: 1.5 hours per day Patient and/or Family Agrees t: Yes Safety Risks/Education Patient Education: Gait Training, Transfer Techniques, Correct Positioning, Safety Issues Teaching Recipient: Patient Teaching Methods: Demonstration, Discussion Response to Teaching: Verbalize Understanding, Return Demonstration Time/GCodes Time In: 1055 Time Out: 1130 Total Billed Treatment Time: 35 Total Billed Treatment 1, Ex (15m), FA (20m) EVELIA VALERIO GAS OR WATER METER INSTALLER Feb 13, 2020 12:58
--- OUTSIDE RECORDS SUMMARY | 2020-02-13 13:18 | XMS REPORT | Continuity of Care Document ---
Author Organization Unknown Address Unknown Phone Unavailable Allergies Active Description Code Type Severity Reaction Onset Reported/Identified Relationship to Patient Clinical Status Yes NO KNOWN DRUG ALLERGIES UNKNOWN NO KNOWN DRUG ALLERG Yes NO KNOWN DRUG ALLERGIES UNKNOWN UNKNOWN Yes No Known Drug Allergies [id number] Drug Allergy Unknown N/A 07/13/2017 Medications Medication [...] N35.9 URETHRAL STRICTURE, UNSPECIFIED 08/04/2017 CELINE WREN MD, Ot N35.9 URETHRAL STRICTURE, UNSPECIFIED 04/19/2018 W 724.2 LUMBAGO 04/19/2018 W M54.5 LOW BACK PAIN 02/09/2019 AYLEEN HIDALGO APRN 780 .2 SYNCOPE AND COLLAPSE 02/09/2019 AYLEEN HIDALGO APRN R55 SYNCOPE AND COLLAPSE 12/19/2019 CELINE WREN MD, Ot N35.9 URETHRAL STRICTURE, UNSPECIFIED 01/12/2020 CELINE WREN MD, Ot N35.9 URETHRAL STRICTURE, UNSPECIFIED 01/14/2020 SIENA MD, CELINE A Ot N35.9 URETHRAL STRICTURE, UNSPECIFIED 01/14/2020 PJ HANSEN, NATHANIEL Machado Ot A41.9 SEPSIS, UNSPECIFIED ORGANISM 01/14/2020 PJ HANSEN, NATHANIEL Machado Ot E11.9 TYPE 2 DIABETES MELLITUS WITHOUT COMPLIC 01/14/2020 PJ HANSEN, NATHANIEL Machado Ot E78.00 PURE HYPERCHOLESTEROLEMIA, UNSPECIFIED 01/14/2020 PJ HANSEN, NATHANIEL Machado Ot H91.90 UNSPECIFIED HEARING LOSS, UNSPECIFIED EA 01/14/2020 PJ HANSEN, NATHANIEL Machado Ot I12.9 HYPERTENSIVE CHRONIC KIDNEY DISEASE W ST 01/14/2020 PJ HANSEN, NATHANIEL Machado Ot I25.2 OLD MYOCARDIAL INFARCTION 01/14/2020 PJ HANSEN, NATHANIEL Machado Ot J18.9 PNEUMONIA, UNSPECIFIED ORGANISM 01/14/2020 PJ HANSEN, NATHANIEL Machado Ot M19.91 PRIMARY OSTEOARTHRITIS, UNSPECIFIED SITE 01/14/2020 NATHANIEL OLIVA MD Ot N17.9 ACUTE KIDNEY FAILURE, UNSPECIFIED 01/14/2020 PJ HANESN, NATHANIEL Machado Ot N18.9 CHRONIC KIDNEY DISEASE, UNSPECIFIED 01/14/2020 NATHANIEL OLIVA MD Ot R5 5 SYNCOPE AND COLLAPSE 01/14/2020 PJ HANSEN, NATHANIEL Machado Ot R65.20 SEVERE SEPSIS WITHOUT SEPTIC SHOCK 01/14/2020 NATHANIEL OLIVA MD Ot S51.011A LACERATION WITHOUT FOREIGN BODY OF RIGHT 01/14/2020 NATHANIEL OLIVA MD Ot W19.XXXA UNSPECIFIED FALL, INITIAL ENCOUNTER 01/14/2020 NATHANIEL OLIVA MD Ot Y92.009 [facility] PLACE IN [facility] NON-INSTITUT (PRIVATE 01/14/2020 NATHANIEL OLIVA MD Ot Z20.828 CONTACT W AND EXPOSURE TO OTH VIRAL COMM 01/14/2020 NATHANIEL OLIVA MD Ot Z87.891 PERSONAL HISTORY OF NICOTINE DEPENDENCE 01/14/2020 NATHANIEL OLIVA MD Ot Z95.2 PRESENCE OF PROSTHETIC HEART VALVE 01/15/2020 NATHANIEL OLIVA MD Ot A41.9 SEPSIS, UNSPECIFIED ORGANISM 01/15/2020 NATHANIEL OLIVA MD Ot E11.9 TYPE 2 DIABETES MELLITUS WITHOUT COMPLIC 01/15/2020 NATHANIEL OLIVA MD Ot E78.00 PURE HYPERCHOLESTEROLEMIA, UNSPECIFIED 01/15/2020 NATHANIEL OLIVA MD Ot H91.90 UNSPECIFIED HEARING LOSS, UNSPECIFIED EA 01/15/2020 NATHANIEL OLIVA MD Ot I12.9 HYPERTENSIVE CHRONIC KIDNEY DISEASE W ST 01/15/2020 NATHANIEL OLIVA MD Ot I25.2 OLD MYOCARDIAL INFARCTION 01/15/2020 NATHANIEL OLIVA MD Ot J18.9 PNEUMONIA, UNSPECIFIED ORGANISM 01/15/2020 NATHANIEL OLIVA MD Ot M19.91 PRIMARY OSTEOARTHRITIS, UNSPECIFIED SITE 01/15/2020 NATHANIEL OLIVA MD Ot N17.9 ACUTE KIDNEY FAILURE, UNSPECIFIED 01/15/2020 NATHANIEL OLIVA MD Ot N18.9 CHRONIC KIDNEY DISEASE, UNSPECIFIED 01/15/2020 NATHANIEL OLIVA MD Ot R5 5 SYNCOPE AND COLLAPSE 01/15/2020 NATHANIEL OLIVA MD Ot R65.20 SEVERE SEPSIS WITHOUT SEPTIC SHOCK 01/15/2020 NATHANIEL OLIVA MD Ot S51.011A LACERATION WITHOUT FOREIGN BODY OF RIGHT 01/15/2020 NATHANIEL OLIVA MD Ot W19.XXXA UNSPECIFIED FALL, INITIAL ENCOUNTER 01/15/2020 NATHANIEL OLIVA MD Ot Y92.009 [facility] PL[facility] IN [facility] NON-INSTITUT (PRIVATE 01/15/2020 NATHANIEL OLIVA MD Ot Z20.828 CONTACT W AND EXPOSURE TO OTH VIRAL COMM 01/15/2020 NATHANIEL OLIVA MD Ot Z87.891 PERSONAL HISTORY OF NICOTINE DEPENDENCE 01/15/2020 NATHANIEL OLIVA MD Ot Z95.2 PRESENCE OF PROSTHETIC HEART VALVE 01/15/2020 NATHANIEL OLIVA MD Ot A41.9 SEPSIS, UNSPECIFIED ORGANISM 01/15/2020 NATHANIEL OLIVA MD Ot E11.9 TYPE 2 DIABETES MELLITUS WITHOUT COMPLIC 01/15/2020 NATHANIEL OLIVA MD Ot E78.00 PURE HYPERCHOLESTEROLEMIA, UNSPECIFIED 01/15/2020 NATHANIEL OLIVA MD Ot H91.90 UNSPECIFIED HEARING LOSS, UNSPECIFIED EA 01/15/2020 NATHANIEL OLIVA MD Ot I12.9 HYPERTENSIVE CHRONIC KIDNEY DISEASE W ST 01/15/2020 NATHANIEL OLIVA MD Ot I25.2 OLD MYOCARDIAL INFARCTION 01/15/2020 NATHANIEL OLIVA MD Ot J18.9 PNEUMONIA, UNSPECIFIED ORGANISM 01/15/2020 NATHANIEL OLIVA MD Ot M19.91 PRIMARY OSTEOARTHRITIS, UNSPECIFIED SITE 01/15/2020 NATHANIEL OLIVA MD Ot N17.9 ACUTE KIDNEY FAILURE, UNSPECIFIED 01/15/2020 NATHANIEL OLIVA MD Ot N18.9 CHRONIC KIDNEY DISEASE, UNSPECIFIED 01/15/2020 NATHANIEL OLIVA MD Ot R5 5 SYNCOPE AND COLLAPSE 01/15/2020 NATHANIEL OLIVA MD Ot R65.20 SEVERE SEPSIS WITHOUT SEPTIC SHOCK 01/15/2020 NATHANIEL OLIVA MD Ot S51.011A LACERATION WITHOUT FOREIGN BODY OF RIGHT 01/15/2020 NATHANIEL OLIVA MD Ot W19.XXXA UNSPECIFIED FALL, INITIAL ENCOUNTER 01/15/2020 NATHANIEL OLIVA MD Ot Y92.009 [facility] PL[facility] IN [facility] NON-INSTITUT (PRIVATE 01/15/2020 NATHANIEL OLIVA MD Ot Z20.828 CONTACT W AND EXPOSURE TO OTH VIRAL COMM 01/15/2020 NATHANIEL OLIVA MD Ot Z87.891 PERSONAL HISTORY OF NICOTINE DEPENDENCE 01/15/2020 NATHANIEL OLIVA MD Ot Z95.2 PRESENCE OF PROSTHETIC HEART VALVE 01/16/2020 NATHANIEL OLIVA MD Ot A41.9 SEPSIS, UNSPECIFIED ORGANISM 01/16/2020 NATHANIEL OLIVA MD Ot E11.9 TYPE 2 DIABETES MELLITUS WITHOUT COMPLIC 01/16/2020 NATHANIEL OLIVA MD Ot E78.00 PURE HYPERCHOLESTEROLEMIA, UNSPECIFIED 01/16/2020 NATHANIEL OLIVA MD Ot H91.90 UNSPECIFIED HEARING LOSS, UNSPECIFIED EA 01/16/2020 NATHANIEL OLIVA MD Ot I12.9 HYPERTENSIVE CHRONIC KIDNEY DISEASE W ST 01/16/2020 NATHANIEL OLIVA MD Ot I25.2 OLD MYOCARDIAL INFARCTION 01/16/2020 NATHANIEL OLIVA MD Ot J18.9 PNEUMONIA, UNSPECIFIED ORGANISM 01/16/2020 NATHANIEL OLIVA MD Ot M19.91 PRIMARY OSTEOARTHRITIS, UNSPECIFIED SITE 01/16/2020 NATHANIEL OLIVA MD Ot N17.9 ACUTE KIDNEY FAILURE, UNSPECIFIED 01/16/2020 NATHANILE OLIVA MD Ot N18.9 CHRONIC KIDNEY DISEASE, UNSPECIFIED 01/16/2020 NATHANIEL OLIVA MD Ot R5 5 SYNCOPE AND COLLAPSE 01/16/2020 NATHANIEL OLIVA MD Ot R65.20 SEVERE SEPSIS WITHOUT SEPTIC SHOCK 01/16/2020 NATHANIEL OLIVA MD Ot S51.011A LACERATION WITHOUT FOREIGN BODY OF RIGHT 01/16/2020 NATHANIEL OLIVA MD Ot W19.XXXA UNSPECIFIED FALL, INITIAL ENCOUNTER 01/16/2020 NATHANIEL OLIVA MD Ot Y92.[address] IN [facility] NON-INSTITUT (PRIVATE 01/16/2020 NATHANIEL OLIVA MD Ot Z20.828 CONTACT W AND EXPOSURE TO OTH VIRAL COMM 01/16/2020 NATHANIEL OLIVA MD Ot Z87.891 PERSONAL HISTORY OF NICOTINE DEPENDENCE 01/16/2020 NATHANIEL OLIVA MD Ot Z95.2 PRESENCE OF PROSTHETIC HEART VALVE 01/17/2020 NATHANIEL OLIVA MD Ot A41.9 SEPSIS, UNSPECIFIED ORGANISM 01/17/2020 NATHANIEL OLIVA MD Ot E11.9 TYPE 2 DIABETES MELLITUS WITHOUT COMPLIC 01/17/2020 NATHANIEL OLIVA MD Ot E78.00 PURE HYPERCHOLESTEROLEMIA, UNSPECIFIED 01/17/2020 NATHANIEL OLIVA MD Ot H91.90 UNSPECIFIED HEARING LOSS, UNSPECIFIED EA 01/17/2020 NATHANIEL OLIVA MD Ot I12.9 HYPERTENSIVE CHRONIC KIDNEY DISEASE W ST 01/17/2020 NATHANIEL OLIVA MD Ot I25.2 OLD MYOCARDIAL INFARCTION 01/17/2020 NATHANIEL OLIVA MD Ot J18.9 PNEUMONIA, UNSPECIFIED ORGANISM 01/17/2020 NATHANIEL OLIVA MD Ot M19.91 PRIMARY OSTEOARTHRITIS, UNSPECIFIED SITE 01/17/2020 NATHANIEL OLIVA MD Ot N17.9 ACUTE KIDNEY FAILURE, UNSPECIFIED 01/17/2020 NATHANIEL OLIVA MD Ot N18.9 CHRONIC KIDNEY DISEASE, UNSPECIFIED 01/17/2020 NATHANIEL OLIVA MD Ot R5 5 SYNCOPE AND COLLAPSE 01/17/2020 NATHANIEL OLIVA MD Ot R65.20 SEVERE SEPSIS WITHOUT SEPTIC SHOCK 01/17/2020 NATHANIEL OLIVA MD Ot S51.011A LACERATION WITHOUT FOREIGN BODY OF RIGHT 01/17/2020 NATHANIEL OLIVA MD Ot W19.XXXA UNSPECIFIED FALL, INITIAL ENCOUNTER 01/17/2020 NATHANIEL OLIVA MD Ot Y92.009 [facility] PL[facility] IN [facility] NON-INSTITUT (PRIVATE 01/17/2020 NATHANIEL OLIVA MD Ot Z20.828 CONTACT W AND EXPOSURE TO OTH VIRAL COMM 01/17/2020 NATHANIEL OLIVA MD Ot Z87.891 PERSONAL HISTORY OF NICOTINE DEPENDENCE 01/17/2020 NATHANIEL OLIVA MD Ot Z95.2 PRESENCE OF PROSTHETIC HEART VALVE 01/17/2020 NATHANIEL OLIVA MD Ot A41.9 SEPSIS, UNSPECIFIED ORGANISM 01/17/2020 PJ HANSEN, NATHANIEL Machado Ot E11.9 TYPE 2 DIABETES MELLITUS WITHOUT COMPLIC 01/17/2020 PJ HANSEN, NATHANIEL Machado Ot E78.00 PURE HYPERCHOLESTEROLEMIA, UNSPECIFIED 01/17/2020 PJ HANSEN, NATHANIEL Machado Ot H91.90 UNSPECIFIED HEARING LOSS, UNSPECIFIED EA 01/17/2020 PJ HANSEN, NATHANIEL Machado Ot I12.9 HYPERTENSIVE CHRONIC KIDNEY DISEASE W ST 01/17/2020 PJ HANSEN, NATHANIEL Machado Ot I25.2 OLD MYOCARDIAL INFARCTION 01/17/2020 NATHANIEL OLIVA MD Ot J18.9 PNEUMONIA, UNSPECIFIED ORGANISM 01/17/2020 PJ HANSEN, NATHANIEL Machado Ot M19.91 PRIMARY OSTEOARTHRITIS, UNSPECIFIED SITE 01/17/2020 NATHANIEL OLIVA MD Ot N17.9 ACUTE KIDNEY FAILURE, UNSPECIFIED 01/17/2020 NATHANIEL OLIVA MD Ot N18.9 CHRONIC KIDNEY DISEASE, UNSPECIFIED 01/17/2020 NATHANIEL OLIVA MD Ot R5 5 SYNCOPE AND COLLAPSE 01/17/2020 NATHANIEL OLIVA MD Ot R65.20 SEVERE SEPSIS WITHOUT SEPTIC SHOCK 01/17/2020 NATHANIEL OLIVA MD Ot S51.011A LACERATION WITHOUT FOREIGN BODY OF RIGHT 01/17/2020 NATHANIEL OLIVA MD Ot W19.XXXA UNSPECIFIED FALL, INITIAL ENCOUNTER 01/17/2020 NATHANIEL OLIVA MD Ot Y92.009 [facility] PLACE IN [facility] NON-INSTITUT (PRIVATE 01/17/2020 NATHANIEL OLIVA MD Ot Z20.828 CONTACT W AND EXPOSURE TO OTH VIRAL COMM 01/17/2020 NATHANIEL OLIVA MD Ot Z87.891 PERSONAL HISTORY OF NICOTINE DEPENDENCE 01/17/2020 NATHANIEL OLIVA MD Ot Z95.2 PRESENCE OF PROSTHETIC HEART VALVE 01/19/2020 PJ HANSEN, NATHANIEL Machado Ot A41.9 SEPSIS, UNSPECIFIED ORGANISM 01/19/2020 PJ HANSEN, NATHANIEL Machado Ot E11.9 TYPE 2 DIABETES MELLITUS WITHOUT COMPLIC 01/19/2020 PJ HANSEN, NATHANIEL Machado Ot E78.00 PURE HYPERCHOLESTEROLEMIA, UNSPECIFIED 01/19/2020 PJ HANSEN, NATHANIEL aMchado Ot H91.90 UNSPECIFIED HEARING LOSS, UNSPECIFIED EA 01/19/2020 PJ HANSEN, NATHANIEL Machado Ot I12.9 HYPERTENSIVE CHRONIC KIDNEY DISEASE W ST 01/19/2020 PJ HANSEN, NATHANIEL Machado Ot I25.2 OLD MYOCARDIAL INFARCTION 01/19/2020 PJ HANSEN, NATHANIEL Machado Ot J18.9 PNEUMONIA, UNSPECIFIED ORGANISM 01/19/2020 PJ HANSEN, NATHANIEL Machado Ot M19.91 PRIMARY OSTEOARTHRITIS, UNSPECIFIED SITE 01/19/2020 PJ HANSEN, NATHANIEL Machado Ot N17.9 ACUTE KIDNEY FAILURE, UNSPECIFIED 01/19/2020 NATHANIEL OLIVA MD Ot N18.9 CHRONIC KIDNEY DISEASE, UNSPECIFIED 01/19/2020 NATHANIEL OLIVA MD Ot R5 5 SYNCOPE AND COLLAPSE 01/19/2020 NATHANIEL OLIVA MD Ot R65.20 SEVERE SEPSIS WITHOUT SEPTIC SHOCK 01/19/2020 NATHANIEL OLIVA MD Ot S51.011A LACERATION WITHOUT FOREIGN BODY OF RIGHT 01/19/2020 NATHANIEL OLIVA MD Ot W19.XXXA UNSPECIFIED FALL, INITIAL ENCOUNTER 01/19/2020 NATHANIEL OLIVA MD Ot Y92.009 [facility] PLACE IN [facility] NON-INSTITUT (PRIVATE 01/19/2020 NATHANIEL OLIVA MD Ot Z20.828 CONTACT W AND EXPOSURE TO OTH VIRAL COMM 01/19/2020 NATHANIEL OLIVA MD Ot Z87.891 PERSONAL HISTORY OF NICOTINE DEPENDENCE 01/19/2020 NATHANIEL OLIVA MD Ot Z95.2 PRESENCE OF PROSTHETIC HEART VALVE 01/19/2020 NATHANIEL OLIVA MD Ot A41.9 SEPSIS, UNSPECIFIED ORGANISM 01/19/2020 NATHANIEL OLIVA MD Ot E11.9 TYPE 2 DIABETES MELLITUS WITHOUT COMPLIC 01/19/2020 NATHANIEL OLIVA MD Ot E78.00 PURE HYPERCHOLESTEROLEMIA, UNSPECIFIED 01/19/2020 NATHANIEL OLIVA MD Ot H91.90 UNSPECIFIED HEARING LOSS, UNSPECIFIED EA 01/19/2020 NATHANIEL OLIVA MD Ot I12.9 HYPERTENSIVE CHRONIC KIDNEY DISEASE W ST 01/19/2020 NATHANIEL OLIVA MD Ot I25.2 OLD MYOCARDIAL INFARCTION 01/19/2020 NATHANIEL OLIVA MD Ot J18.9 PNEUMONIA, UNSPECIFIED ORGANISM 01/19/2020 NATHANIEL OLIVA MD Ot M19.91 PRIMARY OSTEOARTHRITIS, UNSPECIFIED SITE 01/19/2020 NATHANIEL OLIVA MD Ot N17.9 ACUTE KIDNEY FAILURE, UNSPECIFIED 01/19/2020 NATHANIEL OLIVA MD Ot N18.9 CHRONIC KIDNEY DISEASE, UNSPECIFIED 01/19/2020 NATHANIEL OLIVA MD Ot R5 5 SYNCOPE AND COLLAPSE 01/19/2020 NATHANIEL OLIVA MD Ot R65.20 SEVERE SEPSIS WITHOUT SEPTIC SHOCK 01/19/2020 NATHANIEL OLIVA MD Ot S51.011A LACERATION WITHOUT FOREIGN BODY OF RIGHT 01/19/2020 NATHANIEL OLIVA MD Ot W19.XXXA UNSPECIFIED FALL, INITIAL ENCOUNTER 01/19/2020 NATHANIEL OLIVA MD Ot Y92.009 [facility] PLACE IN [facility] NON-INSTITUT (PRIVATE 01/19/2020 ANTHANIEL OLIVA MD Ot Z20.828 CONTACT W AND EXPOSURE TO OTH VIRAL COMM 01/19/2020 NATHANIEL OLIVA MD Ot Z87.891 PERSONAL HISTORY OF NICOTINE DEPENDENCE 01/19/2020 NATHANIEL OLIVA MD Ot Z95.2 PRESENCE OF PROSTHETIC HEART VALVE 01/20/2020 NATHANIEL OLIVA MD Ot A41.9 SEPSIS, UNSPECIFIED ORGANISM 01/20/2020 NATHANIEL OLIVA MD Ot E11.9 TYPE 2 DIABETES MELLITUS WITHOUT COMPLIC 01/20/2020 NATHANIEL OLIVA MD Ot E78.00 PURE HYPERCHOLESTEROLEMIA, UNSPECIFIED 01/20/2020 NATHANIEL OLIVA MD Ot H91.90 UNSPECIFIED HEARING LOSS, UNSPECIFIED EA 01/20/2020 NATHANIEL OLIVA MD Ot I12.9 HYPERTENSIVE CHRONIC KIDNEY DISEASE W ST 01/20/2020 NATHANIEL OLIVA MD Ot I25.2 OLD MYOCARDIAL INFARCTION 01/20/2020 NATHANIEL OLIVA MD Ot J18.9 PNEUMONIA, UNSPECIFIED ORGANISM 01/20/2020 NATHANIEL OLIVA MD Ot M19.91 PRIMARY OSTEOARTHRITIS, UNSPECIFIED SITE 01/20/2020 NATHANIEL OLIVA MD Ot N17.9 ACUTE KIDNEY FAILURE, UNSPECIFIED 01/20/2020 NATHANIEL OLIVA MD Ot N18.9 CHRONIC KIDNEY DISEASE, UNSPECIFIED 01/20/2020 NATHANIEL OLIVA MD Ot R5 5 SYNCOPE AND COLLAPSE 01/20/2020 NATHANIEL OLIVA MD Ot R65.20 SEVERE SEPSIS WITHOUT SEPTIC SHOCK 01/20/2020 NATHANIEL OLIVA MD Ot S51.011A LACERATION WITHOUT FOREIGN BODY OF RIGHT 01/20/2020 NATHANIEL OLIVA MD Ot W19.XXXA UNSPECIFIED FALL, INITIAL ENCOUNTER 01/20/2020 NATHANIEL OLIVA MD Ot Y92.[address] [facility] [address] IN [facility] NON-INSTITUT (PRIVATE 01/20/2020 NATHANIEL OLIVA MD Ot Z20.828 CONTACT W AND EXPOSURE TO OTH VIRAL COMM 01/20/2020 NATHANIEL OLIVA MD Ot Z87.891 PERSONAL HISTORY OF NICOTINE DEPENDENCE 01/20/2020 NATHANIEL OLIVA MD Ot Z95.2 PRESENCE OF PROSTHETIC HEART VALVE 01/21/2020 NATHANIEL OLIVA MD Ot A41.9 SEPSIS, UNSPECIFIED ORGANISM 01/21/2020 NATHANIEL OLIVA MD Ot E11.9 TYPE 2 DIABETES MELLITUS WITHOUT COMPLIC 01/21/2020 NATHANIEL OLIVA MD Ot E78.00 PURE HYPERCHOLESTEROLEMIA, UNSPECIFIED 01/21/2020 NATHANIEL OLIVA MD Ot H91.90 UNSPECIFIED HEARING LOSS, UNSPECIFIED EA 01/21/2020 NATHANIEL OLIVA MD Ot I12.9 HYPERTENSIVE CHRONIC KIDNEY DISEASE W ST 01/21/2020 NATHANIEL OLIVA MD Ot I25.2 OLD MYOCARDIAL INFARCTION 01/21/2020 NATHANIEL OLIVA MD Ot J18.9 PNEUMONIA, UNSPECIFIED ORGANISM 01/21/2020 NATHANIEL OLIVA MD Ot M19.91 PRIMARY OSTEOARTHRITIS, UNSPECIFIED SITE 01/21/2020 NATHANIEL OLIVA MD Ot N17.9 ACUTE KIDNEY FAILURE, UNSPECIFIED 01/21/2020 NATHANIEL OLIVA MD Ot N18.9 CHRONIC KIDNEY DISEASE, UNSPECIFIED 01/21/2020 NATHANIEL OLIVA MD Ot R5 5 SYNCOPE AND COLLAPSE 01/21/2020 NATHANIEL OLIVA MD Ot R65.20 SEVERE SEPSIS WITHOUT SEPTIC SHOCK 01/21/2020 NATHANIEL OLIVA MD Ot S51.011A LACERATION WITHOUT FOREIGN BODY OF RIGHT 01/21/2020 NATHANIEL OLIVA MD Ot W19.XXXA UNSPECIFIED FALL, INITIAL ENCOUNTER 01/21/2020 NATHANIEL OLIVA MD Ot Y92.[address] IN [facility] NON-[facility] (PRIVATE 01/21/2020 NATHANIEL OLIVA MD Ot Z20.828 CONTACT W AND EXPOSURE TO OTH VIRAL COMM 01/21/2020 NATHANIEL OLIVA MD Ot Z87.891 PERSONAL HISTORY OF NICOTINE DEPENDENCE 01/21/2020 NATHANIEL OLIVA MD Ot Z95.2 PRESENCE OF PROSTHETIC HEART VALVE 01/21/2020 NATHANIEL OLIVA MD Ot A41.9 SEPSIS, UNSPECIFIED ORGANISM 01/21/2020 NATHANIEL OLIVA MD Ot E11.9 TYPE 2 DIABETES MELLITUS WITHOUT COMPLIC 01/21/2020 NATHANIEL OLIVA MD Ot E78.00 PURE HYPERCHOLESTEROLEMIA, UNSPECIFIED 01/21/2020 NATHANIEL OLIVA MD Ot H91.90 UNSPECIFIED HEARING LOSS, UNSPECIFIED EA 01/21/2020 NATHANIEL OLIVA MD Ot I12.9 HYPERTENSIVE CHRONIC KIDNEY DISEASE W ST 01/21/2020 NATHANIEL OLIVA MD Ot I25.2 OLD MYOCARDIAL INFARCTION 01/21/2020 NATHANIEL OLIVA MD Ot J18.9 PNEUMONIA, UNSPECIFIED ORGANISM 01/21/2020 NATHANIEL OLIVA MD Ot M19.91 PRIMARY OSTEOARTHRITIS, UNSPECIFIED SITE 01/21/2020 NATHANIEL OLIVA MD Ot N17.9 ACUTE KIDNEY FAILURE, UNSPECIFIED 01/21/2020 NATHANIEL OLIVA MD Ot N18.9 CHRONIC KIDNEY DISEASE, UNSPECIFIED 01/21/2020 NATHANIEL OLIVA MD Ot R5 5 SYNCOPE AND COLLAPSE 01/21/2020 NATHANIEL OLIVA MD Ot R65.20 SEVERE SEPSIS WITHOUT SEPTIC SHOCK 01/21/2020 NATHANIEL OLIVA MD Ot S51.011A LACERATION WITHOUT FOREIGN BODY OF RIGHT 01/21/2020 NATHANIEL OLIVA MD Ot W19.XXXA UNSPECIFIED FALL, INITIAL ENCOUNTER 01/21/2020 NATHANIEL OLIVA MD Ot Y92.[address] IN [facility] NON-[facility] (PRIVATE 01/21/2020 NATHANIEL OLIVA MD Ot Z20.828 CONTACT W AND EXPOSURE TO OTH VIRAL COMM 01/21/2020 NATHANIEL OLIVA MD Ot Z87.891 PERSONAL HISTORY OF NICOTINE DEPENDENCE 01/21/2020 NATHANIEL OLIVA MD Ot Z95.2 PRESENCE OF PROSTHETIC HEART VALVE 01/21/2020 NATHANIEL OLIVA MD Ot A41.9 SEPSIS, UNSPECIFIED ORGANISM 01/21/2020 PJ HANSEN, NATHANIEL Machado Ot E11.9 TYPE 2 DIABETES MELLITUS WITHOUT COMPLIC 01/21/2020 NATHANIEL OLIVA MD Ot E78.00 PURE HYPERCHOLESTEROLEMIA, UNSPECIFIED 01/21/2020 NATHANIEL OLIVA MD Ot H91.90 UNSPECIFIED HEARING LOSS, UNSPECIFIED EA 01/21/2020 NATHANIEL OLIVA MD Ot I12.9 HYPERTENSIVE CHRONIC KIDNEY DISEASE W ST 01/21/2020 NATHANIEL OLIVA MD Ot I25.2 OLD MYOCARDIAL INFARCTION 01/21/2020 NATHANIEL OLIVA MD Ot J18.9 PNEUMONIA, UNSPECIFIED ORGANISM 01/21/2020 NATHANIEL OLIVA MD Ot M19.91 PRIMARY OSTEOARTHRITIS, UNSPECIFIED SITE 01/21/2020 NATHANIEL OLIVA MD Ot N17.9 ACUTE KIDNEY FAILURE, UNSPECIFIED 01/21/2020 NATHANIEL OLIVA MD Ot N18.9 CHRONIC KIDNEY DISEASE, UNSPECIFIED 01/21/2020 NATHANIEL OLIVA MD Ot R5 5 SYNCOPE AND COLLAPSE 01/21/2020 NATHANIEL OLIVA MD Ot R65.20 SEVERE SEPSIS WITHOUT SEPTIC SHOCK 01/21/2020 NATHANIEL OLIVA MD Ot S51.011A LACERATION WITHOUT FOREIGN BODY OF RIGHT 01/21/2020 NATHANIEL OLIVA MD Ot W19.XXXA UNSPECIFIED FALL, INITIAL ENCOUNTER 01/21/2020 NATHANIEL OLIVA MD Ot Y92.009 [facility] PLACE IN [facility] NON-INSTITUT (PRIVATE 01/21/2020 NATHANIEL OLIVA MD Ot Z20.828 CONTACT W AND EXPOSURE TO OTH VIRAL COMM 01/21/2020 NATHANIEL OLIVA MD Ot Z87.891 PERSONAL HISTORY OF NICOTINE DEPENDENCE 01/21/2020 NATHANIEL OLIVA MD Ot Z95.2 PRESENCE OF PROSTHETIC HEART VALVE 01/21/2020 NATHANIEL OLIVA MD Ot A41.9 SEPSIS, UNSPECIFIED ORGANISM 01/21/2020 PJ HANSEN, NATHANIEL Machado Ot E11.9 TYPE 2 DIABETES MELLITUS WITHOUT COMPLIC 01/21/2020 PJ HANSEN, NATHANIEL Machado Ot E78.00 PURE HYPERCHOLESTEROLEMIA, UNSPECIFIED 01/21/2020 PJ HANSEN, NATHANIEL Machado Ot H91.90 UNSPECIFIED HEARING LOSS, UNSPECIFIED EA 01/21/2020 PJ HANSEN, NATHANIEL Machado Ot I12.9 HYPERTENSIVE CHRONIC KIDNEY DISEASE W ST 01/21/2020 PJ HANSEN, NATHANIEL Machado Ot I25.2 OLD MYOCARDIAL INFARCTION 01/21/2020 PJ HANSEN, NATHANIEL Machado Ot J18.9 PNEUMONIA, UNSPECIFIED ORGANISM 01/21/2020 PJ HANSEN, NATHANIEL Machado Ot M19.91 PRIMARY OSTEOARTHRITIS, UNSPECIFIED SITE 01/21/2020 PJ HANSEN, NATHANIEL Machado Ot N17.9 ACUTE KIDNEY FAILURE, UNSPECIFIED 01/21/2020 PJ HANSEN, NATHANIEL Macahdo Ot N18.9 CHRONIC KIDNEY DISEASE, UNSPECIFIED 01/21/2020 NATHANIEL OLIVA MD Ot R5 5 SYNCOPE AND COLLAPSE 01/21/2020 PJ HANSEN, NATHANIEL Machado Ot R65.20 SEVERE SEPSIS WITHOUT SEPTIC SHOCK 01/21/2020 NATHANIEL OLIVA MD Ot S51.011A LACERATION WITHOUT FOREIGN BODY OF RIGHT 01/21/2020 NATHANIEL OLIVA MD Ot W19.XXXA UNSPECIFIED FALL, INITIAL ENCOUNTER 01/21/2020 NATHANIEL OLIVA MD Ot Y92.009 [facility] PL[facility] IN [facility] NON-INSTITUT (PRIVATE 01/21/2020 NATHANIEL OLIVA MD Ot Z20.828 CONTACT W AND EXPOSURE TO OTH VIRAL COMM 01/21/2020 NATHANIEL OLIVA MD Ot Z87.891 PERSONAL HISTORY OF NICOTINE DEPENDENCE 01/21/2020 NATHANIEL OLIVA MD Ot Z95.2 PRESENCE OF PROSTHETIC HEART VALVE 01/22/2020 NATHANIEL OLIVA MD Ot A41.9 SEPSIS, UNSPECIFIED ORGANISM 01/22/2020 NATHANIEL OLIVA MD Ot E11.9 TYPE 2 DIABETES MELLITUS WITHOUT COMPLIC 01/22/2020 NATHANIEL OLIVA MD Ot E78.00 PURE HYPERCHOLESTEROLEMIA, UNSPECIFIED 01/22/2020 NATHANIEL OLIVA MD Ot H91.90 UNSPECIFIED HEARING LOSS, UNSPECIFIED EA 01/22/2020 NATHANIEL OLIVA MD Ot I12.9 HYPERTENSIVE CHRONIC KIDNEY DISEASE W ST 01/22/2020 NATHANIEL OLIVA MD Ot I25.2 OLD MYOCARDIAL INFARCTION 01/22/2020 NATHANIEL OLIVA MD Ot J18.9 PNEUMONIA, UNSPECIFIED ORGANISM 01/22/2020 NATHANIEL OLIVA MD Ot M19.91 PRIMARY OSTEOARTHRITIS, UNSPECIFIED SITE 01/22/2020 NATHANIEL OLIVA MD Ot N17.9 ACUTE KIDNEY FAILURE, UNSPECIFIED 01/22/2020 NATHANIEL OLIVA MD Ot N18.9 CHRONIC KIDNEY DISEASE, UNSPECIFIED 01/22/2020 NATHANIEL OLIVA MD Ot R5 5 SYNCOPE AND COLLAPSE 01/22/2020 NATHANIEL OLIVA MD Ot R65.20 SEVERE SEPSIS WITHOUT SEPTIC SHOCK 01/22/2020 NATHANIEL OLIVA MD Ot S51.011A LACERATION WITHOUT FOREIGN BODY OF RIGHT 01/22/2020 NATHANIEL OLIVA MD Ot W19.XXXA UNSPECIFIED FALL, INITIAL ENCOUNTER 01/22/2020 NATHANIEL OLIVA MD Ot Y92.009 [facility] PL[facility] IN [facility] NON-INSTITUT (PRIVATE 01/22/2020 NATHANIEL OLIVA MD Ot Z20.828 CONTACT W AND EXPOSURE TO OTH VIRAL COMM 01/22/2020 NATHANIEL OLIVA MD Ot Z87.891 PERSONAL HISTORY OF NICOTINE DEPENDENCE 01/22/2020 NATHANIEL OLIVA MD Ot Z95.2 PRESENCE OF PROSTHETIC HEART VALVE 01/23/2020 NATHANIEL OLIVA MD Ot A41.9 SEPSIS, UNSPECIFIED ORGANISM 01/23/2020 NATHANIEL OLIVA MD Ot E11.9 TYPE 2 DIABETES MELLITUS WITHOUT COMPLIC 01/23/2020 NATHANIEL OLIVA MD Ot E78.00 PURE HYPERCHOLESTEROLEMIA, UNSPECIFIED 01/23/2020 NATHANIEL OLIVA MD Ot H91.90 UNSPECIFIED HEARING LOSS, UNSPECIFIED EA 01/23/2020 NATHANIEL OLIVA MD Ot I12.9 HYPERTENSIVE CHRONIC KIDNEY DISEASE W ST 01/23/2020 NATHANIEL OLIVA MD Ot I25.2 OLD MYOCARDIAL INFARCTION 01/23/2020 NATHANIEL OLIVA MD Ot J18.9 PNEUMONIA, UNSPECIFIED ORGANISM 01/23/2020 NATHANIEL OLIVA MD Ot M19.91 PRIMARY OSTEOARTHRITIS, UNSPECIFIED SITE 01/23/2020 NATHANIEL OLIVA MD Ot N17.9 ACUTE KIDNEY FAILURE, UNSPECIFIED 01/23/2020 NATHANIEL OLIVA MD Ot N18.9 CHRONIC KIDNEY DISEASE, UNSPECIFIED 01/23/2020 NATHANIEL OLIVA MD Ot R5 5 SYNCOPE AND COLLAPSE 01/23/2020 NATHANIEL OLIVA MD Ot R65.20 SEVERE SEPSIS WITHOUT SEPTIC SHOCK 01/23/2020 NATHANIEL OLIVA MD Ot S51.011A LACERATION WITHOUT FOREIGN BODY OF RIGHT 01/23/2020 NATHANIEL OLIVA MD Ot W19.XXXA UNSPECIFIED FALL, INITIAL ENCOUNTER 01/23/2020 NATHANIEL OLIVA MD Ot Y92.[address] IN [facility] NON-[facility] (PRIVATE 01/23/2020 NATHANIEL OLIVA MD Ot Z20.828 CONTACT W AND EXPOSURE TO OTH VIRAL COMM 01/23/2020 NATHANIEL OLIVA MD Ot Z87.891 PERSONAL HISTORY OF NICOTINE DEPENDENCE 01/23/2020 NATHANIEL OLIVA MD Ot Z95.2 PRESENCE OF PROSTHETIC HEART VALVE 01/24/2020 NATHANIEL OLIVA MD Ot A41.9 SEPSIS, UNSPECIFIED ORGANISM 01/24/2020 NATHANIEL OLIVA MD Ot E11.9 TYPE 2 DIABETES MELLITUS WITHOUT COMPLIC 01/24/2020 NATHANIEL OLIVA MD Ot E78.00 PURE HYPERCHOLESTEROLEMIA, UNSPECIFIED 01/24/2020 NATHANIEL OLIVA MD Ot H91.90 UNSPECIFIED HEARING LOSS, UNSPECIFIED EA 01/24/2020 NATHANIEL OLIVA MD Ot I12.9 HYPERTENSIVE CHRONIC KIDNEY DISEASE W ST 01/24/2020 NATHANIEL OLIVA MD Ot I25.2 OLD MYOCARDIAL INFARCTION 01/24/2020 NATHANIEL OLIVA MD Ot J18.9 PNEUMONIA, UNSPECIFIED ORGANISM 01/24/2020 NATHANIEL OLIVA MD Ot M19.91 PRIMARY OSTEOARTHRITIS, UNSPECIFIED SITE 01/24/2020 NATHANIEL OLIVA MD Ot N17.9 ACUTE KIDNEY FAILURE, UNSPECIFIED 01/24/2020 NATHANIEL OLIVA MD Ot N18.9 CHRONIC KIDNEY DISEASE, UNSPECIFIED 01/24/2020 NATHANIEL OLIVA MD Ot R5 5 SYNCOPE AND COLLAPSE 01/24/2020 NATHANIEL OLIVA MD Ot R65.20 SEVERE SEPSIS WITHOUT SEPTIC SHOCK 01/24/2020 NATHANIEL OLIVA MD Ot S51.011A LACERATION WITHOUT FOREIGN BODY OF RIGHT 01/24/2020 NATHANIEL OLIVA MD Ot W19.XXXA UNSPECIFIED FALL, INITIAL ENCOUNTER 01/24/2020 NATHANIEL OLIVA MD Ot Y92.[address] IN [facility] NON-INSTITUT (PRIVATE 01/24/2020 PJ HANSEN, NATHANIEL Machado Ot Z20.828 CONTACT W AND EXPOSURE TO OTH VIRAL COMM 01/24/2020 PJ HANSEN, NATHANIEL Machado Ot Z87.891 PERSONAL HISTORY OF NICOTINE DEPENDENCE 01/24/2020 PJ HANSEN, NATHANIEL Machado Ot Z95.2 PRESENCE OF PROSTHETIC HEART VALVE 01/24/2020 PJ HANSEN, NATHANIEL Machado Ot A41.9 SEPSIS, UNSPECIFIED ORGANISM 01/24/2020 PJ HANSEN, NATHANIEL Machado Ot E11.9 TYPE 2 DIABETES MELLITUS WITHOUT COMPLIC 01/24/2020 PJ HANSEN, NATHANIEL Machado Ot E78.00 PURE HYPERCHOLESTEROLEMIA, UNSPECIFIED 01/24/2020 PJ HANSEN, NATHANIEL Machado Ot H91.90 UNSPECIFIED HEARING LOSS, UNSPECIFIED EA 01/24/2020 PJ HANSEN, NATHANIEL Machado Ot I12.9 HYPERTENSIVE CHRONIC KIDNEY DISEASE W ST 01/24/2020 PJ HANSEN, NATHANIEL Machado Ot I25.2 OLD MYOCARDIAL INFARCTION 01/24/2020 PJ HANSEN, NATHANIEL Machado Ot J18.9 PNEUMONIA, UNSPECIFIED ORGANISM 01/24/2020 PJ HANSEN, NATHANIEL Machado Ot M19.91 PRIMARY OSTEOARTHRITIS, UNSPECIFIED SITE 01/24/2020 NATHANIEL OLIVA MD Ot N17.9 ACUTE KIDNEY FAILURE, UNSPECIFIED 01/24/2020 NATHANIEL OLIVA MD Ot N18.9 CHRONIC KIDNEY DISEASE, UNSPECIFIED 01/24/2020 NATHANIEL OLIVA MD Ot R5 5 SYNCOPE AND COLLAPSE 01/24/2020 NATHANIEL OLIVA MD Ot R65.20 SEVERE SEPSIS WITHOUT SEPTIC SHOCK 01/24/2020 NATHANIEL OLIVA MD Ot S51.011A LACERATION WITHOUT FOREIGN BODY OF RIGHT 01/24/2020 NATHANIEL OLIVA MD Ot W19.XXXA UNSPECIFIED FALL, INITIAL ENCOUNTER 01/24/2020 NATHANIEL OLIVA MD Ot Y92.[address] IN [facility] NON-INSTITUT (PRIVATE 01/24/2020 NATHANIEL OLIVA MD Ot Z20.828 CONTACT W AND EXPOSURE TO OTH VIRAL COMM 01/24/2020 NATHANIEL OLIVA MD Ot Z87.891 PERSONAL HISTORY OF NICOTINE DEPENDENCE 01/24/2020 NATHANIEL OLIVA MD Ot Z95.2 PRESENCE OF PROSTHETIC HEART VALVE 01/25/2020 NATHANIEL OLIVA MD Ot A41.9 SEPSIS, UNSPECIFIED ORGANISM 01/25/2020 PJ HANSEN, NATHANIEL Machado Ot E11.9 TYPE 2 DIABETES MELLITUS WITHOUT COMPLIC 01/25/2020 PJ HANSEN, NATHANIEL Machado Ot E78.00 PURE HYPERCHOLESTEROLEMIA, UNSPECIFIED 01/25/2020 PJ HANSEN, NATHANIEL Machado Ot H91.90 UNSPECIFIED HEARING LOSS, UNSPECIFIED EA 01/25/2020 NATHANIEL OLIVA MD Ot I12.9 HYPERTENSIVE CHRONIC KIDNEY DISEASE W ST 01/25/2020 PJ HANSEN, NATHANIEL Machado Ot I25.2 OLD MYOCARDIAL INFARCTION 01/25/2020 NATHANIEL OLIVA MD Ot J18.9 PNEUMONIA, UNSPECIFIED ORGANISM 01/25/2020 PJ HANSEN, NATHANIEL Machado Ot M19.91 PRIMARY OSTEOARTHRITIS, UNSPECIFIED SITE 01/25/2020 NATHANIEL OLIVA MD Ot N17.9 ACUTE KIDNEY FAILURE, UNSPECIFIED 01/25/2020 NATHANIEL OLIVA MD Ot N18.9 CHRONIC KIDNEY DISEASE, UNSPECIFIED 01/25/2020 NATHANIEL OLIVA MD Ot R5 5 SYNCOPE AND COLLAPSE 01/25/2020 NATHANIEL OLIVA MD Ot R65.20 SEVERE SEPSIS WITHOUT SEPTIC SHOCK 01/25/2020 NATHANIEL OLIVA MD Ot S51.011A LACERATION WITHOUT FOREIGN BODY OF RIGHT 01/25/2020 NATHANIEL OLIVA MD Ot W19.XXXA UNSPECIFIED FALL, INITIAL ENCOUNTER 01/25/2020 NATHANIEL OLIVA MD Ot Y92.009 [facility] PL[facility] IN [facility] NON-INSTITUT (PRIVATE 01/25/2020 NATHANIEL OLIVA MD Ot Z20.828 CONTACT W AND EXPOSURE TO OTH VIRAL COMM 01/25/2020 NATHANIEL OLIVA MD Ot Z87.891 PERSONAL HISTORY OF NICOTINE DEPENDENCE 01/25/2020 NATHANIEL OLIVA MD Ot Z95.2 PRESENCE OF PROSTHETIC HEART VALVE 01/26/2020 NATHANIEL OLIVA MD Ot A41.9 SEPSIS, UNSPECIFIED ORGANISM 01/26/2020 PJ HANSEN, NATHANIEL Machado Ot E11.9 TYPE 2 DIABETES MELLITUS WITHOUT COMPLIC 01/26/2020 PJ HANSEN, NATHANIEL Machado Ot E78.00 PURE HYPERCHOLESTEROLEMIA, UNSPECIFIED 01/26/2020 PJ HANSEN, NATHANIEL Machado Ot H91.90 UNSPECIFIED HEARING LOSS, UNSPECIFIED EA 01/26/2020 PJ HANSEN, NATHANEIL Machado Ot I12.9 HYPERTENSIVE CHRONIC KIDNEY DISEASE W ST 01/26/2020 PJ HANSEN, NATHANIEL Machado Ot I25.2 OLD MYOCARDIAL INFARCTION 01/26/2020 PJ HANSEN, NATHANIEL Machado Ot J18.9 PNEUMONIA, UNSPECIFIED ORGANISM 01/26/2020 PJ HANSEN, NATHANIEL Machado Ot M19.91 PRIMARY OSTEOARTHRITIS, UNSPECIFIED SITE 01/26/2020 NATHANIEL OLIVA MD Ot N17.9 ACUTE KIDNEY FAILURE, UNSPECIFIED 01/26/2020 NATHANIEL OLIVA MD Ot N18.9 CHRONIC KIDNEY DISEASE, UNSPECIFIED 01/26/2020 NATHANIEL OLIVA MD Ot R5 5 SYNCOPE AND COLLAPSE 01/26/2020 NATHANIEL OLIVA MD Ot R65.20 SEVERE SEPSIS WITHOUT SEPTIC SHOCK 01/26/2020 NATHANIEL OLIVA MD Ot S51.011A LACERATION WITHOUT FOREIGN BODY OF RIGHT 01/26/2020 NATHANIEL OLIVA MD Ot W19.XXXA UNSPECIFIED FALL, INITIAL ENCOUNTER 01/26/2020 NATHANIEL OLIVA MD Ot Y92.009 [facility] PL[facility] IN [facility] NON-INSTITUT (PRIVATE 01/26/2020 NATHANIEL OLIVA MD Ot Z20.828 CONTACT W AND EXPOSURE TO OTH VIRAL COMM 01/26/2020 NATHANIEL OLIVA MD Ot Z87.891 PERSONAL HISTORY OF NICOTINE DEPENDENCE 01/26/2020 NATHANIEL OLIVA MD Ot Z95.2 PRESENCE OF PROSTHETIC HEART VALVE 01/26/2020 NATHANIEL OLIVA MD Ot A41.9 SEPSIS, UNSPECIFIED ORGANISM 01/26/2020 NATHANIEL OLIVA MD Ot E11.9 TYPE 2 DIABETES MELLITUS WITHOUT COMPLIC 01/26/2020 NATHANIEL OLIVA MD Ot E78.00 PURE HYPERCHOLESTEROLEMIA, UNSPECIFIED 01/26/2020 NATHANIEL OLIVA MD Ot H91.90 UNSPECIFIED HEARING LOSS, UNSPECIFIED EA 01/26/2020 NATHANIEL OLIVA MD Ot I12.9 HYPERTENSIVE CHRONIC KIDNEY DISEASE W ST 01/26/2020 PJ HANSEN, NATHANIEL Machado Ot I25.2 OLD MYOCARDIAL INFARCTION 01/26/2020 PJ HANSEN, NATHANIEL Machado Ot J18.9 PNEUMONIA, UNSPECIFIED ORGANISM 01/26/2020 PJ HANSEN, NATHANIEL Machado Ot M19.91 PRIMARY OSTEOARTHRITIS, UNSPECIFIED SITE 01/26/2020 NATHANIEL OLIVA MD Ot N17.9 ACUTE KIDNEY FAILURE, UNSPECIFIED 01/26/2020 PJ HANSEN, NATHANIEL Machado Ot N18.9 CHRONIC KIDNEY DISEASE, UNSPECIFIED 01/26/2020 NATHANIEL OLIVA MD Ot R5 5 SYNCOPE AND COLLAPSE 01/26/2020 NATHANIEL OLIVA MD Ot R65.20 SEVERE SEPSIS WITHOUT SEPTIC SHOCK 01/26/2020 NATHANIEL OLIVA MD Ot S51.011A LACERATION WITHOUT FOREIGN BODY OF RIGHT 01/26/2020 NATHANIEL OLIVA MD Ot W19.XXXA UNSPECIFIED FALL, INITIAL ENCOUNTER 01/26/2020 NATHANIEL OLIVA MD Ot Y92.009 [facility] PL[facility] IN [facility] NON-INSTITUT (PRIVATE 01/26/2020 NATHANIEL OLIVA MD Ot Z20.828 CONTACT W AND EXPOSURE TO OTH VIRAL COMM 01/26/2020 NATHANIEL OLIVA MD Ot Z87.891 PERSONAL HISTORY OF NICOTINE DEPENDENCE 01/26/2020 NATHANIEL OLIVA MD Ot Z95.2 PRESENCE OF PROSTHETIC HEART VALVE 01/27/2020 NATHANIEL OLIVA MD Ot A41.9 SEPSIS, UNSPECIFIED ORGANISM 01/27/2020 NATHANIEL OLIVA MD Ot E11.9 TYPE 2 DIABETES MELLITUS WITHOUT COMPLIC 01/27/2020 NATHANIEL OLIVA MD Ot E78.00 PURE HYPERCHOLESTEROLEMIA, UNSPECIFIED 01/27/2020 NATHANIEL OLIVA MD Ot H91.90 UNSPECIFIED HEARING LOSS, UNSPECIFIED EA 01/27/2020 NATHANIEL OLIVA MD Ot I12.9 HYPERTENSIVE CHRONIC KIDNEY DISEASE W ST 01/27/2020 NATHANIEL OLIVA MD Ot I25.2 OLD MYOCARDIAL INFARCTION 01/27/2020 NATHANIEL OLIVA MD Ot J18.9 PNEUMONIA, UNSPECIFIED ORGANISM 01/27/2020 NATHANIEL OLIVA MD Ot M19.91 PRIMARY OSTEOARTHRITIS, UNSPECIFIED SITE 01/27/2020 NATHANIEL OLIVA MD Ot N17.9 ACUTE KIDNEY FAILURE, UNSPECIFIED 01/27/2020 NATHANIEL OLIVA MD Ot N18.9 CHRONIC KIDNEY DISEASE, UNSPECIFIED 01/27/2020 NATHANIEL OLIVA MD Ot R5 5 SYNCOPE AND COLLAPSE 01/27/2020 NATHANIEL OLIVA MD Ot R65.20 SEVERE SEPSIS WITHOUT SEPTIC SHOCK 01/27/2020 NATHANIEL OLIVA MD Ot S51.011A LACERATION WITHOUT FOREIGN BODY OF RIGHT 01/27/2020 NATHANIEL OLIVA MD Ot W19.XXXA UNSPECIFIED FALL, INITIAL ENCOUNTER 01/27/2020 NATHANIEL OLIVA MD Ot Y92.[address] IN [facility] NON-INSTITUT (PRIVATE 01/27/2020 NATHANIEL OLIVA MD Ot Z20.828 CONTACT W AND EXPOSURE TO OTH VIRAL COMM 01/27/2020 NATHANIEL OLIVA MD Ot Z87.891 PERSONAL HISTORY OF NICOTINE DEPENDENCE 01/27/2020 NATHANIEL OLIVA MD Ot Z95.2 PRESENCE OF PROSTHETIC HEART VALVE 01/28/2020 NATHANIEL OLIVA MD Ot A41.9 SEPSIS, UNSPECIFIED ORGANISM 01/28/2020 NATHANIEL OLIVA MD Ot E11.9 TYPE 2 DIABETES MELLITUS WITHOUT COMPLIC 01/28/2020 NATHANIEL OLIVA MD Ot E78.00 PURE HYPERCHOLESTEROLEMIA, UNSPECIFIED 01/28/2020 NATHANIEL OLIVA MD Ot H91.90 UNSPECIFIED HEARING LOSS, UNSPECIFIED EA 01/28/2020 NATHANIEL OLIVA MD Ot I12.9 HYPERTENSIVE CHRONIC KIDNEY DISEASE W ST 01/28/2020 NATHANIEL OLIVA MD Ot I25.2 OLD MYOCARDIAL INFARCTION 01/28/2020 NATHANIEL OLIVA MD Ot J18.9 PNEUMONIA, UNSPECIFIED ORGANISM 01/28/2020 NATHANIEL OLIVA MD Ot M19.91 PRIMARY OSTEOARTHRITIS, UNSPECIFIED SITE 01/28/2020 NATHANIEL OLIVA MD Ot N17.9 ACUTE KIDNEY FAILURE, UNSPECIFIED 01/28/2020 NATHANIEL OLIVA MD Ot N18.9 CHRONIC KIDNEY DISEASE, UNSPECIFIED 01/28/2020 NATHANIEL OLIVA MD Ot R5 5 SYNCOPE AND COLLAPSE 01/28/2020 NATHANIEL OLIVA MD Ot R65.20 SEVERE SEPSIS WITHOUT SEPTIC SHOCK 01/28/2020 NATHANIEL OLIVA MD Ot S51.011A LACERATION WITHOUT FOREIGN BODY OF RIGHT 01/28/2020 NATHANIEL OLIVA MD Ot W19.XXXA UNSPECIFIED FALL, INITIAL ENCOUNTER 01/28/2020 NATHANIEL OLIVA MD Ot Y92.[address] IN [facility] NON-INSTITUT (PRIVATE 01/28/2020 NATHANIEL OLIVA MD Ot Z20.828 CONTACT W AND EXPOSURE TO OTH VIRAL COMM 01/28/2020 NATHANIEL OLIVA MD Ot Z87.891 PERSONAL HISTORY OF NICOTINE DEPENDENCE 01/28/2020 PJ HANSEN, NATHANIEL Machado Ot Z95.2 PRESENCE OF PROSTHETIC HEART VALVE 01/28/2020 NATHANIEL OLIVA MD Ot A41.9 SEPSIS, UNSPECIFIED ORGANISM 01/28/2020 NATHANIEL OLIVA MD Ot E11.9 TYPE 2 DIABETES MELLITUS WITHOUT COMPLIC 01/28/2020 NATHANIEL OLIVA MD Ot E78.00 PURE HYPERCHOLESTEROLEMIA, UNSPECIFIED 01/28/2020 NATHANIEL OLIVA MD Ot H91.90 UNSPECIFIED HEARING LOSS, UNSPECIFIED EA 01/28/2020 NATHANIEL OLIVA MD Ot I12.9 HYPERTENSIVE CHRONIC KIDNEY DISEASE W ST 01/28/2020 PJ HANSEN, NATHANIEL Machado Ot I25.2 OLD MYOCARDIAL INFARCTION 01/28/2020 NATHANIEL OLIVA MD Ot J18.9 PNEUMONIA, UNSPECIFIED ORGANISM 01/28/2020 PJ HANSEN, NATHANIEL Machado Ot M19.91 PRIMARY OSTEOARTHRITIS, UNSPECIFIED SITE 01/28/2020 NATHANIEL OLIVA MD Ot N17.9 ACUTE KIDNEY FAILURE, UNSPECIFIED 01/28/2020 NATHANIEL OLIVA MD Ot N18.9 CHRONIC KIDNEY DISEASE, UNSPECIFIED 01/28/2020 NATHANIEL OLIVA MD Ot R5 5 SYNCOPE AND COLLAPSE 01/28/2020 NATHANIEL OLIVA MD Ot R65.20 SEVERE SEPSIS WITHOUT SEPTIC SHOCK 01/28/2020 NATHANIEL OLIVA MD Ot S51.011A LACERATION WITHOUT FOREIGN BODY OF RIGHT 01/28/2020 NATHANIEL OLIVA MD Ot W19.XXXA UNSPECIFIED FALL, INITIAL ENCOUNTER 01/28/2020 NATHANIEL OLIVA MD Ot Y92.[address] IN [facility] NON-INSTITUT (PRIVATE 01/28/2020 NATHANIEL OLIVA MD Ot Z20.828 CONTACT W AND EXPOSURE TO OTH VIRAL COMM 01/28/2020 PJ HANSEN, NATHANIEL Machado Ot Z87.891 PERSONAL HISTORY OF NICOTINE DEPENDENCE 01/28/2020 PJ HANSEN, NATHANIEL Machado Ot Z95.2 PRESENCE OF PROSTHETIC HEART VALVE 01/28/2020 PJ HANSEN, NATHANIEL Machado Ot A41.9 SEPSIS, UNSPECIFIED ORGANISM 01/28/2020 PJ HANSEN, NATHANIEL Machado Ot 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 01/28/2020 PJ HANSEN, NATHANIEL Machado Ot E11.9 TYPE 2 DIABETES MELLITUS WITHOUT COMPLIC 01/28/2020 PJ HANSEN, NATHANIEL Machado Ot E78.00 PURE HYPERCHOLESTEROLEMIA, UNSPECIFIED 01/28/2020 NATHANIEL OLIVA MD Ot E87.0 HYPEROSMOLALITY AND HYPERNATREMIA 01/28/2020 NATHANIEL OLIVA MD Ot E87.2 ACIDOSIS 01/28/2020 NATHANIEL OLIVA MD Ot F41.9 ANXIETY DISORDER, UNSPECIFIED 01/28/2020 PJ HANSEN, NATHANIEL Machado Ot H91.90 UNSPECIFIED HEARING LOSS, UNSPECIFIED EA 01/28/2020 NATHANIEL OLIVA MD Ot I12.9 HYPERTENSIVE CHRONIC KIDNEY DISEASE W ST 01/28/2020 PJ HANSEN, NATHANIEL Machado Ot I13.0 HYP HRT CHR KDNY DIS W HRT FAIL AND ST 01/28/2020 NATHANIEL OLIVA MD Ot I21.A1 MYOCARDIAL INFARCTION TYPE 2 01/28/2020 NATHANIEL OLIVA MD Ot I25.2 OLD MYOCARDIAL INFARCTION 01/28/2020 NATHANIEL OLIVA MD Ot I50.33 ACUTE ON CHRONIC DIASTOLIC (CONGESTIVE) 01/28/2020 NATHANIEL OLIVA MD Ot J1 3 PNEUMONIA DUE TO STREPTOCOCCUS PNEUMONIA 01/28/2020 NATHANIEL OLIVA MD Ot J18.9 PNEUMONIA, UNSPECIFIED ORGANISM 01/28/2020 NATHANIEL OLIVA MD Ot J96.00 ACUTE RESPIRATORY FAILURE, UNSP W HYPOXI 01/28/2020 NATHANIEL OLIVA MD Ot M19.91 PRIMARY OSTEOARTHRITIS, UNSPECIFIED SITE 01/28/2020 NATHANIEL OLIVA MD Ot N17.9 ACUTE KIDNEY FAILURE, UNSPECIFIED 01/28/2020 NATHANIEL OLIVA MD Ot N18.9 CHRONIC KIDNEY DISEASE, UNSPECIFIED 01/28/2020 NATHANIEL OLIVA MD Ot R5 5 SYNCOPE AND COLLAPSE 01/28/2020 NATHANIEL OLIVA MD Ot R65.20 SEVERE SEPSIS WITHOUT SEPTIC SHOCK 01/28/2020 NATHANIEL OLIVA MD Ot S51.011A LACERATION WITHOUT FOREIGN BODY OF RIGHT 01/28/2020 NATHANIEL OLIVA MD Ot W19.XXXA UNSPECIFIED FALL, INITIAL ENCOUNTER 01/28/2020 NATHANIEL OLIVA MD Ot Y92.009 [facility] PLACE IN [facility] NON-INSTITUT (PRIVATE 01/28/2020 NATHANIEL OLIVA MD Ot Z20.828 CONTACT W AND EXPOSURE TO OTH VIRAL COMM 01/28/2020 NATHANIEL OLIVA MD Ot Z87.891 PERSONAL HISTORY OF NICOTINE DEPENDENCE 01/28/2020 NATHANIEL OLIVA MD Ot Z95.2 PRESENCE OF PROSTHETIC HEART VALVE Procedures There is no data. Results Test [...] - 11/27/18 12:13 Surg Path Sent to [facility] Pathology Cardiac Panel - 02/09/19 11:20 CK 159 U/L 26-174 CK-MB 2.7 ng/ml 0.0-9.2 Myoglobin 134.7 ng/ml 1.6-154.9 Troponin <0.020 ng/mL 0.0-0.4 COVID-19 ([facility]) - 01/11/20 16:01 Complete blood count (CBC) with automate d [...] platelet poor plasma (mass/volume) 1.42 ug/mL 0.00-0.49 Bacterial blood culture - 01/12/20 19:13 QUANTITY OF GROWTH Isolated NRG Bacterial blood culture [id number] NRG SUSCEPTIBILITY SUSCEPTIBILITY REPORTED 01/14 ON OTH ER NRG MRSA SCREEN OTHER BLOOD CULTURE OF 6/20 NRG Coronavirus SARS-CoV-2 SO 2019 - 0 19:15 Coronavirus Ab [Units/volume] in Serum Negative Negative Capillary blood glucose measurement by g lucometer (mass/volume) - 01/12/20 19:20 Capillary blood glucose measurement by glucometer (mas s/volume) 161 mg/dL 70-110 Bacterial blood culture - 01/12/20 19:35 QUANTITY OF GROWTH Isolated NRG Bacterial blood culture [id number] NR SUSCEPTIBILITY KB (DISC) SUSCEPTIBILITY REPORTED NRG RAPID ID ID CONFIRMED BY [facility] 01-14-20, [id number] NR Methicillin resistant Staphylococcus aur eus (MRSA) screening culture - 01/12/20 22:30 Methicillin resistant Staphylococcus aureus (MRSA) scr eening culture NEG NRG Blood lactic acid measurement (moles/vol ume) - 01/12/20 23:10 Blood lactic acid measurement (moles/volume) 0.84 mmol/L 0.50-2.00 Bacterial blood culture - 01/12/20 23:12 Bacterial blood culture NG NRG Complete blood count (CBC) with automate d white blood cell (WBC) differential - 01/13/20 02:45 Blood leukocytes automated count (number/volume) 8.1 10*3/uL 4.3-11.0 Blood erythrocytes automated count (number/volume) 3.90 10*6/uL 4.35-5.85 Venous blood hemoglobin measurement (mass/volume) 11.7 g/dL 13.3-17.7 Blood hematocrit (volume fraction) 35 % 40-54 Automated erythrocyte mean corpuscular volume 91 [ foz_us] 80-99 Automated erythrocyte mean corpuscular h emoglobin (mass per erythrocyte) 30 pg 25-34 Automated erythrocyte mean corpuscular h emoglobin concentration measurement (mass/volume) 33 g/dL 32-36 Automated erythrocyte distribution width ratio 14. 9 % 10.0- 14.5 Automated blood platelet count (count/volume) 149 10*3/uL 130-400 Automated blood platelet mean volume measurement 11.3 [foz_us] 7.4-10.4 Automated blood neutrophils/100 leukocytes 87 % 42-75 Automated blood lymphocytes/100 leukocytes 7 % 12-44 Blood monocytes/100 leukocytes 7 % 0-12 Automated blood eosinophils/100 leukocytes 0 % 0-10 Automated blood basophils/100 leukocytes 0 % 0-10 Blood neutrophils automated count (number/volume) 7.0 10*3 1.8-7.8 Blood lymphocytes automated count (number/volume) 0.5 10*3 1.0-4.0 Blood monocytes automated count (number/volume) 0. 6 10*3 0.0-1.0 Automated eosinophil count 0.0 10*3/uL 0 .0-0.3 Automated blood basophil count (count/volume) 0.0 10*3/uL 0.0-0.1 Comprehensive metabolic panel - 01/13/20 02:45 Serum or plasma sodium measurement (moles/volume) 136 mmol/L 135-145 Serum or plasma potassium measurement (moles/volume) 3.9 mmol/L 3.6-5.0 Serum or plasma chloride measurement (moles/volume) 105 mmol/L 98-107 Carbon dioxide 19 mmol/L 21-32 Serum or plasma anion gap determination (moles/volume) 12 mmol/L 5-14 Serum or plasma urea nitrogen measurement (mass/volume ) 36 mg/dL 7-18 Serum or plasma creatinine measurement (mass/volume) 1.86 mg/dL 0.60-1.30 Serum or plasma urea nitrogen/creatinine mass ratio 19 NRG Serum or plasma creatinine measurement w ith calculation of estimated glomerular filtration rate 35 NRG Serum or plasma glucose measurement (mass/volume) 128 mg/dL 70-105 Serum or plasma calcium measurement (mass/volume) 8.4 mg/dL 8.5-10.1 Serum or plasma total bilirubin measurement (mass/volu me) 1.1 mg/dL 0.1-1.0 Serum or plasma alkaline phosphatase nancy surement (enzymatic activity/volume) 55 U/L 40-136 Serum or plasma aspartate aminotransfera se measurement (enzymatic activity/volume) 24 U/L 5-34 Serum or plasma alanine aminotransferase measurement (enzymatic activity/volume) 15 U/L 0-55 Serum or plasma protein measurement (mass/volume) 6.3 g/dL 6.4-8.2 Serum or plasma albumin measurement (mass/volume) 3.3 g/dL 3.2-4.5 CALCIUM CORRECTED 9.0 mg/dL 8.5-10.1 Serum or plasma phosphate measurement (m ass/volume) - 01/13/20 02:45 Serum or plasma phosphate measurement (mass/volume) 3.7 mg/dL 2.3-4.7 Magnesium - 01/13/20 02:45 Magnesium 2.1 mg/dL 1.6-2.4 Capillary blood glucose measurement by g lucometer (mass/volume) - 01/13/20 12:02 Capillary blood glucose measurement by glucometer (mas s/volume) 118 mg/dL 70-110 Capillary blood glucose measurement by g lucometer (mass/volume) - 01/13/20 16:21 Capillary blood glucose measurement by glucometer (mas s/volume) 126 mg/dL 70-110 Capillary blood glucose measurement by g lucometer (mass/volume) - 01/13/20 19:56 Capillary blood glucose measurement by glucometer (mas s/volume) 112 mg/dL 70-110 Complete urinalysis with reflex to cultu re - 01/13/20 23:10 Urine color determination YELLOW NRG Urine clarity determination CLEAR NR G Urine pH measurement by test strip 5.5 5-9 Specific gravity of urine by test strip >= 1.016-1.022 Urine protein assay by test strip, semi-quantitative 1+ NEGATIVE Urine glucose detection by automated test strip NE GATIVE NEGATIVE Erythrocytes detection in urine sediment by light micr oscopy 1+ NEGATIVE Urine ketones detection by automated test strip 1+ NEGATIVE Urine nitrite detection by test strip NEGATIVE NEGATIVE Urine total bilirubin detection by test strip NEGA TIVE NEGATIVE Urine urobilinogen measurement by automated test strip (mass/volume) 1.0 mg/dL < = 1.0 Urine leukocyte esterase detection by dipstick NEG ATIVE NEGATIVE Automated urine sediment erythrocyte cou nt by microscopy (number/high power field) [HPF] NRG Automated urine sediment leukocyte count by microscopy (number/high power field) [HPF] NRG Bacteria detection in urine sediment by light microsco py TRACE NRG Squamous epithelial cells detection in u rine sediment by light microscopy RARE NRG Crystals detection in urine sediment by light microsco py NONE NRG Casts detection in urine sediment by light microscopy PRESENT NRG Mucus detection in urine sediment by light microscopy SMALL NRG Complete urinalysis with reflex to culture NO NRG Granular casts detection in urine sediment by light mi croscopy 0-2 NRG Arterial blood gas measurement - 0 00:10 Blood pCO2 31 mm[Hg] 35-45 Blood pO2 66 mm[Hg] 79-93 Arterial blood bicarbonate measurement (moles/volume) 19 mmol/L 23-27 Arterial blood base excess by calculation -5.0 mmo l/L -2.5-2.5 Arterial blood oxygen saturation measurement 93 % 94-100 * Inhaled oxygen flow rate 7 NRG Arterial blood pH measurement with patient temperature correction 7.40 7.37-7.43 Arterial blood carbon dioxide, total measurement (mole s/volume) 19.8 mmol/L 21.0-31.0 Body site LEFT BRACHIAL NRG Assessment of wrist artery patency prior to arterial p uncture POSITIVE NRG Setting of ventilation mode NO NR G Measurement of body temperature 37.1 NRG Complete blood count (CBC) with automate d white blood cell (WBC) differential - 01/14/20 01:55 Blood leukocytes automated count (number/volume) 9.4 10*3/uL 4.3-11.0 Blood erythrocytes automated count (number/volume) 3.63 10*6/uL 4.35-5.85 Venous blood hemoglobin measurement (mass/volume) 10.9 g/dL 13.3-17.7 Blood hematocrit (volume fraction) 33 % 40-54 Automated erythrocyte mean corpuscular volume 90 [ foz_us] 80-99 Automated erythrocyte mean corpuscular h emoglobin (mass per erythrocyte) 30 pg 25-34 Automated erythrocyte mean corpuscular h emoglobin concentration measurement (mass/volume) 33 g/dL 32-36 Automated erythrocyte distribution width ratio 15. 0 % 10.0- 14.5 Automated blood platelet count (count/volume) 159 10*3/uL 130-400 Automated blood platelet mean volume measurement 11.9 [foz_us] 7.4-10.4 Automated blood neutrophils/100 leukocytes 84 % 42-75 Automated blood lymphocytes/100 leukocytes 5 % 12-44 Blood monocytes/100 leukocytes 11 % 0-12 Automated blood eosinophils/100 leukocytes 0 % 0-10 Automated blood basophils/100 leukocytes 0 % 0-10 Blood neutrophils automated count (number/volume) 8.0 10*3 1.8-7.8 Blood lymphocytes automated count (number/volume) 0.5 10*3 1.0-4.0 Blood monocytes automated count (number/volume) 1. 0 10*3 0.0-1.0 Automated eosinophil count 0.0 10*3/uL 0 .0-0.3 Automated blood basophil count (count/volume) 0.0 10*3/uL 0.0-0.1 Whole blood basic metabolic panel - 12/24 09/13 01:55 Serum or plasma sodium measurement (moles/volume) 135 mmol/L 135-145 Serum or plasma potassium measurement (moles/volume) 3.9 mmol/L 3.6-5.0 Serum or plasma chloride measurement (moles/volume) 105 mmol/L 98-107 Carbon dioxide 18 mmol/L 21-32 Serum or plasma anion gap determination (moles/volume) 12 mmol/L 5-14 Serum or plasma urea nitrogen measurement (mass/volume ) 37 mg/dL 7-18 Serum or plasma creatinine measurement (mass/volume) 1.55 mg/dL 0.60-1.30 Serum or plasma urea nitrogen/creatinine mass ratio 24 NRG Serum or plasma creatinine measurement w ith calculation of estimated glomerular filtration rate 43 NRG Serum or plasma glucose measurement (mass/volume) 110 mg/dL 70-105 Serum or plasma calcium measurement (mass/volume) 8.3 mg/dL 8.5-10.1 Serum or plasma phosphate measurement (m ass/volume) - 01/14/20 01:55 Serum or plasma phosphate measurement (mass/volume) 3.1 mg/dL 2.3-4.7 Magnesium - 01/14/20 01:55 Magnesium 2.1 mg/dL 1.6-2.4 Serum or plasma troponin i.cardiac measu rement (mass/volume) - 01/14/20 01:55 Serum or plasma troponin i.cardiac measurement (mass/v olume) 1.073 ng/mL <0.028 Coronavirus SARS-CoV-2 SO 2018 0 05:30 Coronavirus Ab [Units/volume] in Serum Negative Negative COVID-19 IgG Only SO - 01/14/20 05:30 Coronavirus Ab [Units/volume] in Serum Negative Negative Methicillin resistant Staphylococcus aur eus (MRSA) screening culture - 01/14/20 05:30 Methicillin resistant Staphylococcus aureus (MRSA) scr eening culture NEG NRG Capillary blood glucose measurement by g lucometer (mass/volume) - 01/14/20 11:24 Capillary blood glucose measurement by glucometer (mas s/volume) 133 mg/dL 70-110 Capillary blood glucose measurement by g lucometer (mass/volume) - 01/14/20 14:58 Capillary blood glucose measurement by glucometer (mas s/volume) 163 mg/dL 70-110 Capillary blood glucose measurement by g lucometer (mass/volume) - 01/14/20 20:52 Capillary blood glucose measurement by glucometer (mas s/volume) 114 mg/dL 70-110 Complete blood count (CBC) with automate d white blood cell (WBC) differential - 01/15/20 02:48 Blood leukocytes automated count (number/volume) 7.1 10*3/uL 4.3-11.0 Blood erythrocytes automated count (number/volume) 3.47 10*6/uL 4.35-5.85 Venous blood hemoglobin measurement (mass/volume) 10.2 g/dL 13.3-17.7 Blood hematocrit (volume fraction) 31 % 40-54 Automated erythrocyte mean corpuscular volume 89 [ foz_us] 80-99 Automated erythrocyte mean corpuscular h emoglobin (mass per erythrocyte) 29 pg 25-34 Automated erythrocyte mean corpuscular h emoglobin concentration measurement (mass/volume) 33 g/dL 32-36 Automated erythrocyte distribution width ratio 15. 1 % 10.0- 14.5 Automated blood platelet count (count/volume) 160 10*3/uL 130-400 Automated blood platelet mean volume measurement 11.1 [foz_us] 7.4-10.4 Automated blood neutrophils/100 leukocytes 90 % 42-75 Automated blood lymphocytes/100 leukocytes 4 % 12-44 Blood monocytes/100 leukocytes 5 % 0-12 Automated blood eosinophils/100 leukocytes 0 % 0-10 Automated blood basophils/100 leukocytes 0 % 0-10 Blood neutrophils automated count (number/volume) 6.4 10*3 1.8-7.8 Blood lymphocytes automated count (number/volume) 0.3 10*3 1.0-4.0 Blood monocytes automated count (number/volume) 0. 4 10*3 0.0-1.0 Automated eosinophil count 0.0 10*3/uL 0 .0-0.3 Automated blood basophil count (count/volume) 0.0 10*3/uL 0.0-0.1 Arterial blood gas measurement - 0 02:48 Blood pCO2 33 mm[Hg] 35-45 Blood pO2 106 mm[Hg] 79-93 Arterial blood bicarbonate measurement (moles/volume) 20 mmol/L 23-27 Arterial blood base excess by calculation -4.3 mmo l/L -2.5-2.5 Arterial blood oxygen saturation measurement 98 % 94-100 * Inhaled oxygen flow rate 30 NRG Arterial blood pH measurement with patient temperature correction 7.39 7.37-7.43 Arterial blood carbon dioxide, total measurement (mole s/volume) 20.9 mmol/L 21.0-31.0 Body site RIGHT RADIAL NRG Assessment of wrist artery patency prior to arterial p uncture POSITIVE NRG Setting of ventilation mode NO NR G Measurement of body temperature 36.7 NRG Whole blood basic metabolic panel - 12/24 10/11 02:48 Serum or plasma sodium measurement (moles/volume) 135 mmol/L 135-145 Serum or plasma potassium measurement (moles/volume) 4.3 mmol/L 3.6-5.0 Serum or plasma chloride measurement (moles/volume) 107 mmol/L 98-107 Carbon dioxide 17 mmol/L 21-32 Serum or plasma anion gap determination (moles/volume) 11 mmol/L 5-14 Serum or plasma urea nitrogen measurement (mass/volume ) 34 mg/dL 7-18 Serum or plasma creatinine measurement (mass/volume) 1.17 mg/dL 0.60-1.30 Serum or plasma urea nitrogen/creatinine mass ratio 29 NRG Serum or plasma creatinine measurement w ith calculation of estimated glomerular filtration rate 59 NRG Serum or plasma glucose measurement (mass/volume) 126 mg/dL 70-105 Serum or plasma calcium measurement (mass/volume) 8.7 mg/dL 8.5-10.1 Serum or plasma phosphate measurement (m ass/volume) - 01/15/20 02:48 Serum or plasma phosphate measurement (mass/volume) 3.4 mg/dL 2.3-4.7 Magnesium - 01/15/20 02:48 Magnesium 2.5 mg/dL 1.6-2.4 Manual absolute plasma cell count - 12/24 10/11 02:48 Blood monocytes/100 leukocytes 3 % NRG Manual blood segmented neutrophils/100 leukocytes 87 % NRG Blood band neutrophils/100 leukocytes 6 % NRG Manual blood lymphocytes/100 leukocytes 4 % NRG Blood anisocytosis detection by light microscopy S LIGHT NRG Capillary blood glucose measurement by g lucometer (mass/volume) - 01/15/20 10:50 Capillary blood glucose measurement by glucometer (mas s/volume) 136 mg/dL 70-110 Capillary blood glucose measurement by g lucometer (mass/volume) - 01/15/20 15:12 Capillary blood glucose measurement by glucometer (mas s/volume) 119 mg/dL 70-110 Capillary blood glucose measurement by g lucometer (mass/volume) - 01/15/20 20:24 Capillary blood glucose measurement by glucometer (mas s/volume) 133 mg/dL 70-110 Complete blood count (CBC) with automate d white blood cell (WBC) differential - 01/16/20 03:05 Blood leukocytes automated count (number/volume) 7.9 10*3/uL 4.3-11.0 Blood erythrocytes automated count (number/volume) 3.49 10*6/uL 4.35-5.85 Venous blood hemoglobin measurement (mass/volume) 10.4 g/dL 13.3-17.7 Blood hematocrit (volume fraction) 31 % 40-54 Automated erythrocyte mean corpuscular volume 90 [ foz_us] 80-99 Automated erythrocyte mean corpuscular h emoglobin (mass per erythrocyte) 30 pg 25-34 Automated erythrocyte mean corpuscular h emoglobin concentration measurement (mass/volume) 33 g/dL 32-36 Automated erythrocyte distribution width ratio 14. 9 % 10.0- 14.5 Automated blood platelet count (count/volume) 194 10*3/uL 130-400 Automated blood platelet mean volume measurement 11.3 [foz_us] 7.4-10.4 Automated blood neutrophils/100 leukocytes 90 % 42-75 Automated blood lymphocytes/100 leukocytes 5 % 12-44 Blood monocytes/100 leukocytes 5 % 0-12 Automated blood eosinophils/100 leukocytes 0 % 0-10 Automated blood basophils/100 leukocytes 0 % 0-10 Blood neutrophils automated count (number/volume) 7.1 10*3 1.8-7.8 Blood lymphocytes automated count (number/volume) 0.4 10*3 1.0-4.0 Blood monocytes automated count (number/volume) 0. 4 10*3 0.0-1.0 Automated eosinophil count 0.0 10*3/uL 0 .0-0.3 Automated blood basophil count (count/volume) 0.0 10*3/uL 0.0-0.1 Whole blood basic metabolic panel - 12/24 11/11 03:05 Serum or plasma sodium measurement (moles/volume) 137 mmol/L 135-145 Serum or plasma potassium measurement (moles/volume) 4.5 mmol/L 3.6-5.0 Serum or plasma chloride measurement (moles/volume) 107 mmol/L 98-107 Carbon dioxide 20 mmol/L 21-32 Serum or plasma anion gap determination (moles/volume) 10 mmol/L 5-14 Serum or plasma urea nitrogen measurement (mass/volume ) 41 mg/dL 7-18 Serum or plasma creatinine measurement (mass/volume) 1.31 mg/dL 0.60-1.30 Serum or plasma urea nitrogen/creatinine mass ratio 31 NRG Serum or plasma creatinine measurement w ith calculation of estimated glomerular filtration rate 52 NRG Serum or plasma glucose measurement (mass/volume) 135 mg/dL 70-105 Serum or plasma calcium measurement (mass/volume) 8.6 mg/dL 8.5-10.1 Serum or plasma phosphate measurement (m ass/volume) - 01/16/20 03:05 Serum or plasma phosphate measurement (mass/volume) 3.6 mg/dL 2.3-4.7 Magnesium - 01/16/20 03:05 Magnesium 2.8 mg/dL 1.6-2.4 Serum or plasma lithium measurement (mol es/volume) - 01/16/20 03:05 BNP PT 948.5 pg/mL <100.0 Arterial blood gas measurement - 0 04:50 Blood pCO2 33 mm[Hg] 35-45 Blood pO2 95 mm[Hg] 79-93 Arterial blood bicarbonate measurement (moles/volume) 20 mmol/L 23-27 Arterial blood base excess by calculation -4.4 mmo l/L -2.5-2.5 Arterial blood oxygen saturation measurement 97 % 94-100 * Inhaled oxygen flow rate 35 NRG Arterial blood pH measurement with patient temperature correction 7.39 7.37-7.43 Arterial blood carbon dioxide, total measurement (mole s/volume) 20.8 mmol/L 21.0-31.0 Body site RIGHT RADIAL NRG Assessment of wrist artery patency prior to arterial p uncture POSITIVE NRG Setting of ventilation mode NO NR G Measurement of body temperature 36.5 NRG Capillary blood glucose measurement by g lucometer (mass/volume) - 01/16/20 11:12 Capillary blood glucose measurement by glucometer (mas s/volume) 131 mg/dL 70-110 Arterial blood gas measurement - 0 15:20 Blood pCO2 37 mm[Hg] 35-45 Blood pO2 102 mm[Hg] 79-93 Arterial blood bicarbonate measurement (moles/volume) 22 mmol/L 23-27 Arterial blood base excess by calculation -2.3 mmo l/L -2.5-2.5 Arterial blood oxygen saturation measurement 97 % 94-100 * Inhaled oxygen flow rate 30% NRG Arterial blood pH measurement with patient temperature correction 7.39 7.37-7.43 Arterial blood carbon dioxide, total measurement (mole s/volume) 22.9 mmol/L 21.0-31.0 Body site UNK NRG Assessment of wrist artery patency prior to arterial p uncture UNK NRG Setting of ventilation mode NO NR G Measurement of body temperature 37.1 NRG Capillary blood glucose measurement by g lucometer (mass/volume) - 01/16/20 16:09 Capillary blood glucose measurement by glucometer (mas s/volume) 165 mg/dL 70-110 Capillary blood glucose measurement by g lucometer (mass/volume) - 01/16/20 20:39 Capillary blood glucose measurement by glucometer (mas s/volume) 207 mg/dL 70-110 Complete blood count (CBC) with automate d white blood cell (WBC) differential - 01/17/20 02:51 Blood leukocytes automated count (number/volume) 7.4 10*3/uL 4.3-11.0 Blood erythrocytes automated count (number/volume) 3.43 10*6/uL 4.35-5.85 Venous blood hemoglobin measurement (mass/volume) 10.2 g/dL 13.3-17.7 Blood hematocrit (volume fraction) 31 % 40-54 Automated erythrocyte mean corpuscular volume 90 [ foz_us] 80-99 Automated erythrocyte mean corpuscular h emoglobin (mass per erythrocyte) 30 pg 25-34 Automated erythrocyte mean corpuscular h emoglobin concentration measurement (mass/volume) 33 g/dL 32-36 Automated erythrocyte distribution width ratio 15. 2 % 10.0- 14.5 Automated blood platelet count (count/volume) 226 10*3/uL 130-400 Automated blood platelet mean volume measurement 11.3 [foz_us] 7.4-10.4 Automated blood neutrophils/100 leukocytes 90 % 42-75 Automated blood lymphocytes/100 leukocytes 4 % 12-44 Blood monocytes/100 leukocytes 6 % 0-12 Automated blood eosinophils/100 leukocytes 0 % 0-10 Automated blood basophils/100 leukocytes 0 % 0-10 Blood neutrophils automated count (number/volume) 6.6 10*3 1.8-7.8 Blood lymphocytes automated count (number/volume) 0.3 10*3 1.0-4.0 Blood monocytes automated count (number/volume) 0. 5 10*3 0.0-1.0 Automated eosinophil count 0.0 10*3/uL 0 .0-0.3 Automated blood basophil count (count/volume) 0.0 10*3/uL 0.0-0.1 Whole blood basic metabolic panel - 12/24 12/11 02:51 Serum or plasma sodium measurement (moles/volume) 139 mmol/L 135-145 Serum or plasma potassium measurement (moles/volume) 4.3 mmol/L 3.6-5.0 Serum or plasma chloride measurement (moles/volume) 108 mmol/L 98-107 Carbon dioxide 22 mmol/L 21-32 Serum or plasma anion gap determination (moles/volume) 9 mmol/L 5-14 Serum or plasma urea nitrogen measurement (mass/volume ) 45 mg/dL 7-18 Serum or plasma creatinine measurement (mass/volume) 1.31 mg/dL 0.60-1.30 Serum or plasma urea nitrogen/creatinine mass ratio 34 NRG Serum or plasma creatinine measurement w ith calculation of estimated glomerular filtration rate 52 NRG Serum or plasma glucose measurement (mass/volume) 186 mg/dL 70-105 Serum or plasma calcium measurement (mass/volume) 8.4 mg/dL 8.5-10.1 Serum or plasma phosphate measurement (m ass/volume) - 01/17/20 02:51 Serum or plasma phosphate measurement (mass/volume) 3.5 mg/dL 2.3-4.7 Magnesium - 01/17/20 02:51 Magnesium 2.8 mg/dL 1.6-2.4 Capillary blood glucose measurement by g lucometer (mass/volume) - 01/17/20 11:45 Capillary blood glucose measurement by glucometer (mas s/volume) 190 mg/dL 70-110 Capillary blood glucose measurement by g lucometer (mass/volume) - 01/17/20 15:56 Capillary blood glucose measurement by glucometer (mas s/volume) 183 mg/dL 70-110 Arterial blood gas measurement - 0 16:43 Blood pCO2 42 mm[Hg] 35-45 Blood pO2 99 mm[Hg] 79-93 Arterial blood bicarbonate measurement (moles/volume) 24 mmol/L 23-27 Arterial blood base excess by calculation -0.1 mmo l/L -2.5-2.5 Arterial blood oxygen saturation measurement 98 % 94-100 * Inhaled oxygen flow rate 50% NRG Arterial blood pH measurement with patient temperature correction 7.38 7.37-7.43 Arterial blood carbon dioxide, total measurement (mole s/volume) 25.6 mmol/L 21.0-31.0 Body site R RAD NRG Assessment of wrist artery patency prior to arterial p uncture YES-POS NRG Setting of ventilation mode NO NR G Measurement of body temperature 36.9 NRG Capillary blood glucose measurement by g lucometer (mass/volume) - 01/17/20 20:34 Capillary blood glucose measurement by glucometer (mas s/volume) 179 mg/dL 70-110 Complete blood count (CBC) with automate d white blood cell (WBC) differential - 01/18/20 02:42 Blood leukocytes automated count (number/volume) 9.9 10*3/uL 4.3-11.0 Blood erythrocytes automated count (number/volume) 3.92 10*6/uL 4.35-5.85 Venous blood hemoglobin measurement (mass/volume) 11.6 g/dL 13.3-17.7 Blood hematocrit (volume fraction) 36 % 40-54 Automated erythrocyte mean corpuscular volume 92 [ foz_us] 80-99 Automated erythrocyte mean corpuscular h emoglobin (mass per erythrocyte) 30 pg 25-34 Automated erythrocyte mean corpuscular h emoglobin concentration measurement (mass/volume) 32 g/dL 32-36 Automated erythrocyte distribution width ratio 15. 2 % 10.0- 14.5 Automated blood platelet count (count/volume) 244 10*3/uL 130-400 Automated blood platelet mean volume measurement 11.5 [foz_us] 7.4-10.4 Automated blood neutrophils/100 leukocytes 89 % 42-75 Automated blood lymphocytes/100 leukocytes 5 % 12-44 Blood monocytes/100 leukocytes 5 % 0-12 Automated blood eosinophils/100 leukocytes 0 % 0-10 Automated blood basophils/100 leukocytes 0 % 0-10 Blood neutrophils automated count (number/volume) 8.9 10*3 1.8-7.8 Blood lymphocytes automated count (number/volume) 0.5 10*3 1.0-4.0 Blood monocytes automated count (number/volume) 0. 5 10*3 0.0-1.0 Automated eosinophil count 0.0 10*3/uL 0 .0-0.3 Automated blood basophil count (count/volume) 0.0 10*3/uL 0.0-0.1 Whole blood basic metabolic panel - 12/24 01/11 02:42 Serum or plasma sodium measurement (moles/volume) 140 mmol/L 135-145 Serum or plasma potassium measurement (moles/volume) 4.0 mmol/L 3.6-5.0 Serum or plasma chloride measurement (moles/volume) 102 mmol/L 98-107 Carbon dioxide 26 mmol/L 21-32 Serum or plasma anion gap determination (moles/volume) 12 mmol/L 5-14 Serum or plasma urea nitrogen measurement (mass/volume ) 44 mg/dL 7-18 Serum or plasma creatinine measurement (mass/volume) 1.52 mg/dL 0.60-1.30 Serum or plasma urea nitrogen/creatinine mass ratio 29 NRG Serum or plasma creatinine measurement w ith calculation of estimated glomerular filtration rate 44 NRG Serum or plasma glucose measurement (mass/volume) 176 mg/dL 70-105 Serum or plasma calcium measurement (mass/volume) 8.9 mg/dL 8.5-10.1 Serum or plasma phosphate measurement (m ass/volume) - 01/18/20 02:42 Serum or plasma phosphate measurement (mass/volume) 3.9 mg/dL 2.3-4.7 Magnesium - 01/18/20 02:42 Magnesium 2.6 mg/dL 1.6-2.4 Serum or plasma lithium measurement (mol es/volume) - 01/18/20 02:42 BNP PT 678.0 pg/mL <100.0 PROCALCITONIN (PCT) - 01/18/20 02:42 PROCALCITONIN (PCT) 0.08 ng/mL <0.10 Capillary blood glucose measurement by g lucometer (mass/volume) - 01/18/20 11:18 Capillary blood glucose measurement by glucometer (mas s/volume) 183 mg/dL 70-110 Capillary blood glucose measurement by g lucometer (mass/volume) - 01/18/20 15:23 Capillary blood glucose measurement by glucometer (mas s/volume) 185 mg/dL 70-110 Capillary blood glucose measurement by g lucometer (mass/volume) - 01/18/20 20:20 Capillary blood glucose measurement by glucometer (mas s/volume) 202 mg/dL 70-110 Complete blood count (CBC) with automate d white blood cell (WBC) differential - 01/19/20 02:55 Blood leukocytes automated count (number/volume) 9.9 10*3/uL 4.3-11.0 Blood erythrocytes automated count (number/volume) 3.90 10*6/uL 4.35-5.85 Venous blood hemoglobin measurement (mass/volume) 11.6 g/dL 13.3-17.7 Blood hematocrit (volume fraction) 36 % 40-54 Automated erythrocyte mean corpuscular volume 92 [ foz_us] 80-99 Automated erythrocyte mean corpuscular h emoglobin (mass per erythrocyte) 30 pg 25-34 Automated erythrocyte mean corpuscular h emoglobin concentration measurement (mass/volume) 32 g/dL 32-36 Automated erythrocyte distribution width ratio 15. 4 % 10.0- 14.5 Automated blood platelet count (count/volume) 237 10*3/uL 130-400 Automated blood platelet mean volume measurement 10.8 [foz_us] 7.4-10.4 Automated blood neutrophils/100 leukocytes 87 % 42-75 Automated blood lymphocytes/100 leukocytes 6 % 12-44 Blood monocytes/100 leukocytes 7 % 0-12 Automated blood eosinophils/100 leukocytes 0 % 0-10 Automated blood basophils/100 leukocytes 0 % 0-10 Blood neutrophils automated count (number/volume) 8.6 10*3 1.8-7.8 Blood lymphocytes automated count (number/volume) 0.6 10*3 1.0-4.0 Blood monocytes automated count (number/volume) 0. 7 10*3 0.0-1.0 Automated eosinophil count 0.0 10*3/uL 0 .0-0.3 Automated blood basophil count (count/volume) 0.0 10*3/uL 0.0-0.1 Whole blood basic metabolic panel - 12/24 02/10 02:55 Serum or plasma sodium measurement (moles/volume) 143 mmol/L 135-145 Serum or plasma potassium measurement (moles/volume) 3.9 mmol/L 3.6-5.0 Serum or plasma chloride measurement (moles/volume) 103 mmol/L 98-107 Carbon dioxide 29 mmol/L 21-32 Serum or plasma anion gap determination (moles/volume) 11 mmol/L 5-14 Serum or plasma urea nitrogen measurement (mass/volume ) 43 mg/dL 7-18 Serum or plasma creatinine measurement (mass/volume) 1.48 mg/dL 0.60-1.30 Serum or plasma urea nitrogen/creatinine mass ratio 29 NRG Serum or plasma creatinine measurement w ith calculation of estimated glomerular filtration rate 45 NRG Serum or plasma glucose measurement (mass/volume) 159 mg/dL 70-105 Serum or plasma calcium measurement (mass/volume) 8.6 mg/dL 8.5-10.1 Serum or plasma phosphate measurement (m ass/volume) - 01/19/20 02:55 Serum or plasma phosphate measurement (mass/volume) 3.5 mg/dL 2.3-4.7 Magnesium - 01/19/20 02:55 Magnesium 2.8 mg/dL 1.6-2.4 Capillary blood glucose measurement by g lucometer (mass/volume) - 01/19/20 05:46 Capillary blood glucose measurement by glucometer (mas s/volume) 166 mg/dL 70-110 Capillary blood glucose measurement by g lucometer (mass/volume) - 01/19/20 11:34 Capillary blood glucose measurement by glucometer (mas s/volume) 202 mg/dL 70-110 Capillary blood glucose measurement by g lucometer (mass/volume) - 01/19/20 15:29 Capillary blood glucose measurement by glucometer (mas s/volume) 204 mg/dL 70-110 Capillary blood glucose measurement by g lucometer (mass/volume) - 01/19/20 17:49 Capillary blood glucose measurement by glucometer (mas s/volume) 191 mg/dL 70-110 Capillary blood glucose measurement by g lucometer (mass/volume) - 01/20/20 00:11 Capillary blood glucose measurement by glucometer (mas s/volume) 217 mg/dL 70-110 Complete blood count (CBC) with automate d white blood cell (WBC) differential - 01/20/20 05:35 Blood leukocytes automated count (number/volume) 11.2 10*3/uL 4.3-11.0 Blood erythrocytes automated count (number/volume) 3.87 10*6/uL 4.35-5.85 Venous blood hemoglobin measurement (mass/volume) 11.7 g/dL 13.3-17.7 Blood hematocrit (volume fraction) 36 % 40-54 Automated erythrocyte mean corpuscular volume 93 [ foz_us] 80-99 Automated erythrocyte mean corpuscular h emoglobin (mass per erythrocyte) 30 pg 25-34 Automated erythrocyte mean corpuscular h emoglobin concentration measurement (mass/volume) 33 g/dL 32-36 Automated erythrocyte distribution width ratio 15. 7 % 10.0- 14.5 Automated blood platelet count (count/volume) 232 10*3/uL 130-400 Automated blood platelet mean volume measurement 11.1 [foz_us] 7.4-10.4 Automated blood neutrophils/100 leukocytes 91 % 42-75 Automated blood lymphocytes/100 leukocytes 4 % 12-44 Blood monocytes/100 leukocytes 5 % 0-12 Automated blood eosinophils/100 leukocytes 0 % 0-10 Automated blood basophils/100 leukocytes 0 % 0-10 Blood neutrophils automated count (number/volume) 10.2 10*3 1.8-7.8 Blood lymphocytes automated count (number/volume) 0.4 10*3 1.0-4.0 Blood monocytes automated count (number/volume) 0. 6 10*3 0.0-1.0 Automated eosinophil count 0.0 10*3/uL 0 .0-0.3 Automated blood basophil count (count/volume) 0.0 10*3/uL 0.0-0.1 Whole blood basic metabolic panel - 12/24 03/13 05:35 Serum or plasma sodium measurement (moles/volume) 145 mmol/L 135-145 Serum or plasma potassium measurement (moles/volume) 3.9 mmol/L 3.6-5.0 Serum or plasma chloride measurement (moles/volume) 104 mmol/L 98-107 Carbon dioxide 28 mmol/L 21-32 Serum or plasma anion gap determination (moles/volume) 13 mmol/L 5-14 Serum or plasma urea nitrogen measurement (mass/volume ) 43 mg/dL 7-18 Serum or plasma creatinine measurement (mass/volume) 1.53 mg/dL 0.60-1.30 Serum or plasma urea nitrogen/creatinine mass ratio 28 NRG Serum or plasma creatinine measurement w ith calculation of estimated glomerular filtration rate 44 NRG Serum or plasma glucose measurement (mass/volume) 210 mg/dL 70-105 Serum or plasma calcium measurement (mass/volume) 8.5 mg/dL 8.5-10.1 Serum or plasma phosphate measurement (m ass/volume) - 01/20/20 05:35 Serum or plasma phosphate measurement (mass/volume) 3.4 mg/dL 2.3-4.7 Magnesium - 01/20/20 05:35 Magnesium 2.7 mg/dL 1.6-2.4 Capillary blood glucose measurement by g lucometer (mass/volume) - 01/20/20 11:11 Capillary blood glucose measurement by glucometer (mas s/volume) 184 mg/dL 70-110 Capillary blood glucose measurement by g lucometer (mass/volume) - 01/20/20 11:26 Capillary blood glucose measurement by glucometer (mas s/volume) 169 mg/dL 70-110 Capillary blood glucose measurement by g lucometer (mass/volume) - 01/20/20 17:36 Capillary blood glucose measurement by glucometer (mas s/volume) 208 mg/dL 70-110 Arterial blood gas measurement - 0 21:20 Blood pCO2 46 mm[Hg] 35-45 Blood pO2 73 mm[Hg] 79-93 Arterial blood bicarbonate measurement (moles/volume) 34 mmol/L 23-27 Arterial blood base excess by calculation 10.4 mmo l/L -2.5-2.5 Arterial blood oxygen saturation measurement 93 % 94-100 * Inhaled oxygen flow rate NOT INDICATED NRG Arterial blood pH measurement with patient temperature correction 7.48 7.37-7.43 Arterial blood carbon dioxide, total measurement (mole s/volume) 35.8 mmol/L 21.0-31.0 Body site LEFT RADIAL NRG Assessment of wrist artery patency prior to arterial p uncture YES-POS NRG Setting of ventilation mode NO NR G Measurement of body temperature 36.4 NRG Capillary blood glucose measurement by g lucometer (mass/volume) - 01/20/20 23:14 Capillary blood glucose measurement by glucometer (mas s/volume) 214 mg/dL 70-110 Capillary blood glucose measurement by g lucometer (mass/volume) - 01/21/20 05:05 Capillary blood glucose measurement by glucometer (mas s/volume) 195 mg/dL 70-110 Complete blood count (CBC) with automate d white blood cell (WBC) differential - 01/21/20 05:15 Blood leukocytes automated count (number/volume) 10.5 10*3/uL 4.3-11.0 Blood erythrocytes automated count (number/volume) 4.01 10*6/uL 4.35-5.85 Venous blood hemoglobin measurement (mass/volume) 12.0 g/dL 13.3-17.7 Blood hematocrit (volume fraction) 37 % 40-54 Automated erythrocyte mean corpuscular volume 93 [ foz_us] 80-99 Automated erythrocyte mean corpuscular h emoglobin (mass per erythrocyte) 30 pg 25-34 Automated erythrocyte mean corpuscular h emoglobin concentration measurement (mass/volume) 32 g/dL 32-36 Automated erythrocyte distribution width ratio 16. 0 % 10.0- 14.5 Automated blood platelet count (count/volume) 229 10*3/uL 130-400 Automated blood platelet mean volume measurement 10.5 [foz_us] 7.4-10.4 Automated blood neutrophils/100 leukocytes 91 % 42-75 Automated blood lymphocytes/100 leukocytes 5 % 12-44 Blood monocytes/100 leukocytes 4 % 0-12 Automated blood eosinophils/100 leukocytes 0 % 0-10 Automated blood basophils/100 leukocytes 0 % 0-10 Blood neutrophils automated count (number/volume) 9.6 10*3 1.8-7.8 Blood lymphocytes automated count (number/volume) 0.5 10*3 1.0-4.0 Blood monocytes automated count (number/volume) 0. 4 10*3 0.0-1.0 Automated eosinophil count 0.0 10*3/uL 0 .0-0.3 Automated blood basophil count (count/volume) 0.0 10*3/uL 0.0-0.1 Whole blood basic metabolic panel - 12/24 04/13 05:15 Serum or plasma sodium measurement (moles/volume) 148 mmol/L 135-145 Serum or plasma potassium measurement (moles/volume) 3.8 mmol/L 3.6-5.0 Serum or plasma chloride measurement (moles/volume) 104 mmol/L 98-107 Carbon dioxide 31 mmol/L 21-32 Serum or plasma anion gap determination (moles/volume) 13 mmol/L 5-14 Serum or plasma urea nitrogen measurement (mass/volume ) 49 mg/dL 7-18 Serum or plasma creatinine measurement (mass/volume) 1.71 mg/dL 0.60-1.30 Serum or plasma urea nitrogen/creatinine mass ratio 29 NRG Serum or plasma creatinine measurement w ith calculation of estimated glomerular filtration rate 38 NRG Serum or plasma glucose measurement (mass/volume) 213 mg/dL 70-105 Serum or plasma calcium measurement (mass/volume) 8.8 mg/dL 8.5-10.1 Serum or plasma phosphate measurement (m ass/volume) - 01/21/20 05:15 Serum or plasma phosphate measurement (mass/volume) 2.9 mg/dL 2.3-4.7 Magnesium - 01/21/20 05:15 Magnesium 2.9 mg/dL 1.6-2.4 Serum or plasma lithium measurement (mol es/volume) - 01/21/20 05:15 BNP PT 296.0 pg/mL <100.0 PROCALCITONIN (PCT) - 01/21/20 05:15 PROCALCITONIN (PCT) 0.05 ng/mL <0.10 Arterial blood gas measurement - 0 06:03 Blood pCO2 41 mm[Hg] 35-45 Blood pO2 85 mm[Hg] 79-93 Arterial blood bicarbonate measurement (moles/volume) 35 mmol/L 23-27 Arterial blood base excess by calculation 10.8 mmo l/L -2.5-2.5 Arterial blood oxygen saturation measurement 97 % 94-100 * Inhaled oxygen flow rate 24% NRG Arterial blood pH measurement with patient temperature correction 7.53 7.37-7.43 Arterial blood carbon dioxide, total measurement (mole s/volume) 35.8 mmol/L 21.0-31.0 Body site RIGHT RADIAL NRG Assessment of wrist artery patency prior to arterial p uncture YES-POS NRG Setting of ventilation mode NO NR G Measurement of body temperature 36.1 NRG Capillary blood glucose measurement by g lucometer (mass/volume) - 01/21/20 10:40 Capillary blood glucose measurement by glucometer (mas s/volume) 200 mg/dL 70-110 Capillary blood glucose measurement by g lucometer (mass/volume) - 01/21/20 18:00 Capillary blood glucose measurement by glucometer (mas s/volume) 173 mg/dL 70-110 Capillary blood glucose measurement by g lucometer (mass/volume) - 01/21/20 23:42 Capillary blood glucose measurement by glucometer (mas s/volume) 192 mg/dL 70-110 Capillary blood glucose measurement by g lucometer (mass/volume) - 01/22/20 05:20 Capillary blood glucose measurement by glucometer (mas s/volume) 190 mg/dL 70-110 Blood CBC with ordered manual differenti al panel - 01/22/20 09:03 Blood leukocytes automated count (number/volume) 11.8 10*3/uL 4.3-11.0 Blood erythrocytes automated count (number/volume) 4.10 10*6/uL 4.35-5.85 Venous blood hemoglobin measurement (mass/volume) 12.0 g/dL 13.3-17.7 Blood hematocrit (volume fraction) 39 % 40-54 Automated erythrocyte mean corpuscular volume 95 [ foz_us] 80-99 Automated erythrocyte mean corpuscular h emoglobin (mass per erythrocyte) 29 pg 25-34 Automated erythrocyte mean corpuscular h emoglobin concentration measurement (mass/volume) 31 g/dL 32-36 Automated erythrocyte distribution width ratio 16. 1 % 10.0- 14.5 Automated blood platelet count (count/volume) 227 10*3/uL 130-400 Automated blood platelet mean volume measurement 10.9 [foz_us] 7.4-10.4 Automated blood neutrophils/100 leukocytes 91 % 42-75 Automated blood lymphocytes/100 leukocytes 3 % 12-44 Blood monocytes/100 leukocytes 2 % NRG Automated blood eosinophils/100 leukocytes 0 % 0-10 Automated blood basophils/100 leukocytes 0 % 0-10 Blood neutrophils automated count (number/volume) 10.7 10*3 1.8-7.8 Blood lymphocytes automated count (number/volume) 0.3 10*3 1.0-4.0 Blood monocytes automated count (number/volume) 0. 7 10*3 0.0-1.0 Automated eosinophil count 0.0 10*3/uL 0 .0-0.3 Automated blood basophil count (count/volume) 0.0 10*3/uL 0.0-0.1 Manual blood segmented neutrophils/100 leukocytes 94 % NRG Blood band neutrophils/100 leukocytes 2 % NRG Manual blood lymphocytes/100 leukocytes 2 % NRG Manual eosinophils/100 leukocytes in nose 0 % NRG Manual blood basophils/100 leukocytes 0 % NRG Blood anisocytosis detection by light microscopy S LIGHT NRG Serum or plasma renal function panel (Na , K, Cl, CO2, BUN, Cr, glucose,Ca, phos, alb) - 01/22/20 09:03 Serum or plasma sodium measurement (moles/volume) 149 mmol/L 135-145 Serum or plasma potassium measurement (moles/volume) 4.3 mmol/L 3.6-5.0 Serum or plasma chloride measurement (moles/volume) 106 mmol/L 98-107 Carbon dioxide 32 mmol/L 21-32 Serum or plasma anion gap determination (moles/volume) 11 mmol/L 5-14 Serum or plasma urea nitrogen measurement (mass/volume ) 53 mg/dL 7-18 Serum or plasma creatinine measurement (mass/volume) 1.57 mg/dL 0.60-1.30 Serum or plasma urea nitrogen/creatinine mass ratio 34 NRG Serum or plasma creatinine measurement w ith calculation of estimated glomerular filtration rate 42 NRG Serum or plasma glucose measurement (mass/volume) 181 mg/dL 70-105 Serum or plasma calcium measurement (mass/volume) 8.8 mg/dL 8.5-10.1 Serum or plasma albumin measurement (mass/volume) 3.4 g/dL 3.2-4.5 Serum or plasma phosphate measurement (mass/volume) 3.4 mg/dL 2.3-4.7 Capillary blood glucose measurement by g lucometer (mass/volume) - 01/22/20 11:28 Capillary blood glucose measurement by glucometer (mas s/volume) 175 mg/dL 70-110 Capillary blood glucose measurement by g lucometer (mass/volume) - 01/22/20 17:33 Capillary blood glucose measurement by glucometer (mas s/volume) 166 mg/dL 70-110 Capillary blood glucose measurement by g lucometer (mass/volume) - 01/22/20 23:37 Capillary blood glucose measurement by glucometer (mas s/volume) 182 mg/dL 70-110 Capillary blood glucose measurement by g lucometer (mass/volume) - 01/23/20 05:44 Capillary blood glucose measurement by glucometer (mas s/volume) 184 mg/dL 70-110 Capillary blood glucose measurement by g lucometer (mass/volume) - 01/23/20 11:33 Capillary blood glucose measurement by glucometer (mas s/volume) 197 mg/dL 70-110 Capillary blood glucose measurement by g lucometer (mass/volume) - 01/23/20 18:25 Capillary blood glucose measurement by glucometer (mas s/volume) 180 mg/dL 70-110 Capillary blood glucose measurement by g lucometer (mass/volume) - 01/23/20 23:07 Capillary blood glucose measurement by glucometer (mas s/volume) 109 mg/dL 70-110 Capillary blood glucose measurement by g lucometer (mass/volume) - 01/23/20 23:36 Capillary blood glucose measurement by glucometer (mas s/volume) 100 mg/dL 70-110 Capillary blood glucose measurement by g lucometer (mass/volume) - 01/24/20 05:28 Capillary blood glucose measurement by glucometer (mas s/volume) 127 mg/dL 70-110 Automated blood complete blood count (he mogram) panel - 01/24/20 10:04 Blood leukocytes automated count (number/volume) 12.5 10*3/uL 4.3-11.0 Blood erythrocytes automated count (number/volume) 4.03 10*6/uL 4.35-5.85 Venous blood hemoglobin measurement (mass/volume) 11.9 g/dL 13.3-17.7 Blood hematocrit (volume fraction) 38 % 40-54 Automated erythrocyte mean corpuscular volume 95 [ foz_us] 80-99 Automated erythrocyte mean corpuscular h emoglobin (mass per erythrocyte) 30 pg 25-34 Automated erythrocyte mean corpuscular h emoglobin concentration measurement (mass/volume) 31 g/dL 32-36 Automated erythrocyte distribution width ratio 15. 6 % 10.0- 14.5 Automated blood platelet count (count/volume) 143 10*3/uL 130-400 Automated blood platelet mean volume measurement 11.0 [foz_us] 7.4-10.4 Comprehensive metabolic panel - 01/24/20 10:04 Serum or plasma sodium measurement (moles/volume) 150 mmol/L 135-145 Serum or plasma potassium measurement (moles/volume) 3.5 mmol/L 3.6-5.0 Serum or plasma chloride measurement (moles/volume) 110 mmol/L 98-107 Carbon dioxide 29 mmol/L 21-32 Serum or plasma anion gap determination (moles/volume) 11 mmol/L 5-14 Serum or plasma urea nitrogen measurement (mass/volume ) 47 mg/dL 7-18 Serum or plasma creatinine measurement (mass/volume) 1.22 mg/dL 0.60-1.30 Serum or plasma urea nitrogen/creatinine mass ratio 39 NRG Serum or plasma creatinine measurement w ith calculation of estimated glomerular filtration rate 57 NRG Serum or plasma glucose measurement (mass/volume) 132 mg/dL 70-105 Serum or plasma calcium measurement (mass/volume) 8.2 mg/dL 8.5-10.1 Serum or plasma total bilirubin measurement (mass/volu me) 2.0 mg/dL 0.1-1.0 Serum or plasma alkaline phosphatase nancy surement (enzymatic activity/volume) 54 U/L 40-136 Serum or plasma aspartate aminotransfera se measurement (enzymatic activity/volume) 69 U/L 5-34 Serum or plasma alanine aminotransferase measurement (enzymatic activity/volume) 153 U/L 0-55 Serum or plasma protein measurement (mass/volume) 5.1 g/dL 6.4-8.2 Serum or plasma albumin measurement (mass/volume) 3.0 g/dL 3.2-4.5 CALCIUM CORRECTED 9.0 mg/dL 8.5-10.1 Magnesium - 01/24/20 10:04 Magnesium 2.7 mg/dL 1.6-2.4 Capillary blood glucose measurement by g lucometer (mass/volume) - 01/24/20 11:49 Capillary blood glucose measurement by glucometer (mas s/volume) 128 mg/dL 70-110 Capillary blood glucose measurement by g lucometer (mass/volume) - 01/24/20 17:13 Capillary blood glucose measurement by glucometer (mas s/volume) 113 mg/dL 70-110 Capillary blood glucose measurement by g lucometer (mass/volume) - 01/24/20 23:14 Capillary blood glucose measurement by glucometer (mas s/volume) 114 mg/dL 70-110 Whole blood basic metabolic panel - 10/11 05:25 Serum or plasma sodium measurement (moles/volume) 150 mmol/L 135-145 Serum or plasma potassium measurement (moles/volume) 3.4 mmol/L 3.6-5.0 Serum or plasma chloride measurement (moles/volume) 112 mmol/L 98-107 Carbon dioxide 27 mmol/L 21-32 Serum or plasma anion gap determination (moles/volume) 11 mmol/L 5-14 Serum or plasma urea nitrogen measurement (mass/volume ) 38 mg/dL 7-18 Serum or plasma creatinine measurement (mass/volume) 1.02 mg/dL 0.60-1.30 Serum or plasma urea nitrogen/creatinine mass ratio 37 NRG Serum or plasma creatinine measurement w ith calculation of estimated glomerular filtration rate > NRG Serum or plasma glucose measurement (mass/volume) 108 mg/dL 70-105 Serum or plasma calcium measurement (mass/volume) 8.7 mg/dL 8.5-10.1 Liver function panel (serum or plasma al k phos, alb, total and direct bili, total protein, ALT, AST) - 01/25/20 05:25 Serum or plasma total bilirubin measurement (mass/volu me) 2.1 mg/dL 0.1-1.0 Serum or plasma alkaline phosphatase nancy surement (enzymatic activity/volume) 53 U/L 40-136 Serum or plasma aspartate aminotransfera se measurement (enzymatic activity/volume) 69 U/L 5-34 Serum or plasma alanine aminotransferase measurement (enzymatic activity/volume) 151 U/L 0-55 Serum or plasma protein measurement (mass/volume) 5.5 g/dL 6.4-8.2 Serum or plasma albumin measurement (mass/volume) 3.2 g/dL 3.2-4.5 Bilirubin direct 0.8 mg/dL 0.0-0.3 Serum or plasma indirect bilirubin measurement (mass/v olume) 1.3 mg/dL NRG Capillary blood glucose measurement by g lucometer (mass/volume) - 01/25/20 11:58 Capillary blood glucose measurement by glucometer (mas s/volume) 128 mg/dL 70-110 Capillary blood glucose measurement by g lucometer (mass/volume) - 01/25/20 18:03 Capillary blood glucose measurement by glucometer (mas s/volume) 121 mg/dL 70-110 Capillary blood glucose measurement by g lucometer (mass/volume) - 01/25/20 23:56 Capillary blood glucose measurement by glucometer (mas s/volume) 143 mg/dL 70-110 Capillary blood glucose measurement by g lucometer (mass/volume) - 01/26/20 05:29 Capillary blood glucose measurement by glucometer (mas s/volume) 128 mg/dL 70-110 Automated blood complete blood count (he mogram) panel - 01/26/20 05:30 Blood leukocytes automated count (number/volume) 10.9 10*3/uL 4.3-11.0 Blood erythrocytes automated count (number/volume) 4.19 10*6/uL 4.35-5.85 Venous blood hemoglobin measurement (mass/volume) 12.4 g/dL 13.3-17.7 Blood hematocrit (volume fraction) 39 % 40-54 Automated erythrocyte mean corpuscular volume 92 [ foz_us] 80-99 Automated erythrocyte mean corpuscular h emoglobin (mass per erythrocyte) 30 pg 25-34 Automated erythrocyte mean corpuscular h emoglobin concentration measurement (mass/volume) 32 g/dL 32-36 Automated erythrocyte distribution width ratio 15. 2 % 10.0- 14.5 Automated blood platelet count (count/volume) 115 10*3/uL 130-400 Automated blood platelet mean volume measurement 11.5 [foz_us] 7.4-10.4 Comprehensive metabolic panel - 01/26/20 05:30 Serum or plasma sodium measurement (moles/volume) 147 mmol/L 135-145 Serum or plasma potassium measurement (moles/volume) 3.4 mmol/L 3.6-5.0 Serum or plasma chloride measurement (moles/volume) 114 mmol/L 98-107 Carbon dioxide 24 mmol/L 21-32 Serum or plasma anion gap determination (moles/volume) 9 mmol/L 5-14 Serum or plasma urea nitrogen measurement (mass/volume ) 34 mg/dL 7-18 Serum or plasma creatinine measurement (mass/volume) 0.95 mg/dL 0.60-1.30 Serum or plasma urea nitrogen/creatinine mass ratio 36 NRG Serum or plasma creatinine measurement w ith calculation of estimated glomerular filtration rate > NRG Serum or plasma glucose measurement (mass/volume) 129 mg/dL 70-105 Serum or plasma calcium measurement (mass/volume) 8.2 mg/dL 8.5-10.1 Serum or plasma total bilirubin measurement (mass/volu me) 2.2 mg/dL 0.1-1.0 Serum or plasma alkaline phosphatase nancy surement (enzymatic activity/volume) 50 U/L 40-136 Serum or plasma aspartate aminotransfera se measurement (enzymatic activity/volume) 50 U/L 5-34 Serum or plasma alanine aminotransferase measurement (enzymatic activity/volume) 122 U/L 0-55 Serum or plasma protein measurement (mass/volume) 5.1 g/dL 6.4-8.2 Serum or plasma albumin measurement (mass/volume) 3.0 g/dL 3.2-4.5 CALCIUM CORRECTED 9.0 mg/dL 8.5-10.1 Capillary blood glucose measurement by g lucometer (mass/volume) - 01/26/20 11:27 Capillary blood glucose measurement by glucometer (mas s/volume) 146 mg/dL 70-110 Capillary blood glucose measurement by g lucometer (mass/volume) - 01/26/20 17:20 Capillary blood glucose measurement by glucometer (mas s/volume) 129 mg/dL 70-110 Capillary blood glucose measurement by g lucometer (mass/volume) - 01/26/20 23:36 Capillary blood glucose measurement by glucometer (mas s/volume) 162 mg/dL 70-110 Automated blood complete blood count (he mogram) panel - 01/27/20 05:12 Blood leukocytes automated count (number/volume) 12.4 10*3/uL 4.3-11.0 Blood erythrocytes automated count (number/volume) 4.03 10*6/uL 4.35-5.85 Venous blood hemoglobin measurement (mass/volume) 11.6 g/dL 13.3-17.7 Blood hematocrit (volume fraction) 37 % 40-54 Automated erythrocyte mean corpuscular volume 91 [ foz_us] 80-99 Automated erythrocyte mean corpuscular h emoglobin (mass per erythrocyte) 29 pg 25-34 Automated erythrocyte mean corpuscular h emoglobin concentration measurement (mass/volume) 32 g/dL 32-36 Automated erythrocyte distribution width ratio 15. 3 % 10.0- 14.5 Automated blood platelet count (count/volume) 108 10*3/uL 130-400 Automated blood platelet mean volume measurement 11.9 [foz_us] 7.4-10.4 Comprehensive metabolic panel - 01/27/20 05:12 Serum or plasma sodium measurement (moles/volume) 139 mmol/L 135-145 Serum or plasma potassium measurement (moles/volume) 3.9 mmol/L 3.6-5.0 Serum or plasma chloride measurement (moles/volume) 111 mmol/L 98-107 Carbon dioxide 20 mmol/L 21-32 Serum or plasma anion gap determination (moles/volume) 8 mmol/L 5-14 Serum or plasma urea nitrogen measurement (mass/volume ) 27 mg/dL 7-18 Serum or plasma creatinine measurement (mass/volume) 0.90 mg/dL 0.60-1.30 Serum or plasma urea nitrogen/creatinine mass ratio 30 NRG Serum or plasma creatinine measurement w ith calculation of estimated glomerular filtration rate > NRG Serum or plasma glucose measurement (mass/volume) 143 mg/dL 70-105 Serum or plasma calcium measurement (mass/volume) 7.8 mg/dL 8.5-10.1 Serum or plasma total bilirubin measurement (mass/volu me) 1.8 mg/dL 0.1-1.0 Serum or plasma alkaline phosphatase nancy surement (enzymatic activity/volume) 50 U/L 40-136 Serum or plasma aspartate aminotransfera se measurement (enzymatic activity/volume) 45 U/L 5-34 Serum or plasma alanine aminotransferase measurement (enzymatic activity/volume) 95 U/L 0-55 Serum or plasma protein measurement (mass/volume) 4.7 g/dL 6.4-8.2 Serum or plasma albumin measurement (mass/volume) 2.7 g/dL 3.2-4.5 CALCIUM CORRECTED 8.8 mg/dL 8.5-10.1 Capillary blood glucose measurement by g lucometer (mass/volume) - 01/27/20 12:19 Capillary blood glucose measurement by glucometer (mas s/volume) 103 mg/dL 70-110 Capillary blood glucose measurement by g lucometer (mass/volume) - 01/27/20 17:38 Capillary blood glucose measurement by glucometer (mas s/volume) 108 mg/dL 70-110 Automated blood complete blood count (he mogram) panel - 01/28/20 05:07 Blood leukocytes automated count (number/volume) 12.2 10*3/uL 4.3-11.0 Blood erythrocytes automated count (number/volume) 3.89 10*6/uL 4.35-5.85 Venous blood hemoglobin measurement (mass/volume) 11.8 g/dL 13.3-17.7 Blood hematocrit (volume fraction) 36 % 40-54 Automated erythrocyte mean corpuscular volume 91 [ foz_us] 80-99 Automated erythrocyte mean corpuscular h emoglobin (mass per erythrocyte) 30 pg 25-34 Automated erythrocyte mean corpuscular h emoglobin concentration measurement (mass/volume) 33 g/dL 32-36 Automated erythrocyte distribution width ratio 15. 4 % 10.0- 14.5 Automated blood platelet count (count/volume) 152 10*3/uL 130-400 Automated blood platelet mean volume measurement 12.1 [foz_us] 7.4-10.4 Comprehensive metabolic panel - 01/28/20 05:07 Serum or plasma sodium measurement (moles/volume) 139 mmol/L 135-145 Serum or plasma potassium measurement (moles/volume) 3.6 mmol/L 3.6-5.0 Serum or plasma chloride measurement (moles/volume) 109 mmol/L 98-107 Carbon dioxide 21 mmol/L 21-32 Serum or plasma anion gap determination (moles/volume) 9 mmol/L 5-14 Serum or plasma urea nitrogen measurement (mass/volume ) 25 mg/dL 7-18 Serum or plasma creatinine measurement (mass/volume) 0.99 mg/dL 0.60-1.30 Serum or plasma urea nitrogen/creatinine mass ratio 25 NRG Serum or plasma creatinine measurement w ith calculation of estimated glomerular filtration rate > NRG Serum or plasma glucose measurement (mass/volume) 109 mg/dL 70-105 Serum or plasma calcium measurement (mass/volume) 8.3 mg/dL 8.5-10.1 Serum or plasma total bilirubin measurement (mass/volu me) 2.1 mg/dL 0.1-1.0 Serum or plasma alkaline phosphatase nancy surement (enzymatic activity/volume) 57 U/L 40-136 Serum or plasma aspartate aminotransfera se measurement (enzymatic activity/volume) 65 U/L 5-34 Serum or plasma alanine aminotransferase measurement (enzymatic activity/volume) 109 U/L 0-55 Serum or plasma protein measurement (mass/volume) 5.1 g/dL 6.4-8.2 Serum or plasma albumin measurement (mass/volume) 2.9 g/dL 3.2-4.5 CALCIUM CORRECTED 9.2 mg/dL 8.5-10.1 Capillary blood glucose measurement by g lucometer (mass/volume) - 01/28/20 12:50 Capillary blood glucose measurement by glucometer (mas s/volume) 124 mg/dL 70-110 Encounters ACCT No. Visit Date/Time Discharge Status Pt. Type Provider Facility Loc./Unit Complaint [id number] 01/11/2020 15:40:00 01/11/2020 23:59: 59 CLS Outpatient [facility] [id number] 01/11/2020 15:40:00 Document Registration [id number] 01/12/2020 20:30:00 020 13:10:00 DIS Inpatient NATHANIEL OLIVA MD [facility] 4TH COVID PUI,SEPSIS,PNEUMONIA,ARRYTHMIA, RENAL FAIL [id number] 07/13/2017 08:47:00 017 23:59:59 CLS Outpatient CELINE WREN MD [facility] [id number] 05/21/2019 12:03:00 05/21/2019 23:59: 00 DIS Outpatient JOHN LAWRENCE [id number] 05/21/2019 12:01:00 05/21/2019 23:59: 00 DIS Outpatient JOHN LAWRENCE [id number] 04/02/2019 07:19:00 04/02/2019 23:59: 00 DIS Outpatient JOHN LAWRENCE [id number] 02/09/2019 10:56:00 02/09/2019 13:17: 00 DIS Outpatient AYLEEN HIDALGO APRN [facility] [id number] 11/27/2018 00:00:00 11/27/2018 13:35: 00 DIS Outpatient Aryan Newsome [id number] 11/23/2018 10:30:00 11/23/2018 23:59: 00 DIS Outpatient Aryan Newsome [id number] 10/31/2018 07:14:00 10/31/2018 23:59: 00 DIS Outpatient NATHANIEL OLIVA [id number] 04/11/2018 08:18:00 04/11/2018 23:59: 00 DIS Outpatient NATHANIEL OLIVA [id number] 12/26/2017 06:08:00 12/26/2017 23:59: 00 DIS Outpatient NATHANIEL OLIVA [id number] 08/26/2017 15:15:00 08/26/2017 23:59: 00 DIS Outpatient Igor Clements [id number] 07/05/2017 07:08:00 07/05/2017 23:59: 00 DIS Outpatient NATHANIEL OLIVA [id number] 02/25/2017 13:41:00 04/19/2017 09:45: 00 DIS Outpatient Brittani KAY [id number] 10/01/2016 07:23:00 10/01/2016 23:59: 00 DIS Outpatient NATHANIEL OLIVA [id number] 07/03/2016 06:32:00 07/03/2016 23:59: 00 DIS Outpatient NATHANIEL OLIVA [id number] 11/23/2018 12:43:19 Document Registration [id number] 04/13/2018 12:43:00 Document Registration
[2020-02-13] MEDS ORDERED: VIT E (14:13)
[2020-02-13] MEDS ORDERED: PIOG45TA7 PO (14:13)
[2020-02-13] MEDS ORDERED: DICL100G18 TP (14:13)
[2020-02-13] MEDS ORDERED: ZOLP6.252 PO (14:13)
[2020-02-13] MEDS ORDERED: FERR160T5 PO (14:13)
[2020-02-13] MEDS ORDERED: PRAV10TA PO (14:13)
--- NOTE | 2020-02-13 14:32 | ST Cognitive Linguistic Eval ---
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 Adamson Medical History Pertinent Medical History: DM, HTN, [place], Renal Insufficiency Reviewed History: Yes Social History Current Living Status: Spouse Speech PLF-Current Status Prior Level of Function Patient was admitted from home initially, where he lived with his . Subjective Patient was cooperative with the cognitive assessment. Language Eval: Auditory Comprehends Simple Yes/No Ques: Functional Indent/Objects Multiple [place]: Functional Ident/Pics in Multiple [place]: Functional Follows 1-Step Commands: Functional Follows Complex Directions: Mild Follows General Conversations: Mild Patient is NISQUALLY and requires repetitions of directions. Language Eval: Verbal Language Completes Spontaneous Greeting: Functional Produces Auto, Serial Info: Functional Imitates Simple Words/Phrases: Functional Word Finding: Mild Requests Basic Needs: Functional States Basic Personal Info: Functional Expresses Complex Ideas: Mild Objective Cognitive Domain Attention: WNL Memory: Mild Problem Solving: Functional Executive Functions: Mild Visuospatial Skills: Mild Composite Severity Rating: Mild Clock Drawing Severity Rating: Mild Objective Formal/Standardized Tests 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 He was given the [facility] with a score of 22/30 obtained. Patient is noted to be NISQUALLY and requires repetitions of directions. Patient's level of function is within the MNCD range. Patient will receive skilled ST with focus on safety and communication so that he will be able to discharge at a higher functional level. Speech Patient Assess Expression of Ideas/Wants: Exhibits (3) Understanding Verbal Content: Usually Understands (3) Brief Interview-Mental Status: Yes Repetition of Three Words: Three (3) Temporal Orientation: Year: Correct (3) Temporal Orientation: Month: Accurate within 5 days(2) Temporal Orientation: Day: Correct (1) Recall : Wear to say "Sock": Yes,after cueing (1) Recall : Color: No, could not recall (0) Recall : Bed: Yes,after cueing (1) Memory/Recall Ability: Current season, That he or she is in a hsp/hsp unit Speech Short Term Goals Short Term Goals Short Term Goals 1) Patient will complete memory tasks related to his daily needs at 90% or greater with minimal cuing. 2) Patient will complete safety awareness tasks related to his daily needs at 90% or greater with minimal cuing. 3) Patient will complete problem solving tasks related to his daily needs at 90% or greater with minimal cuing. Speech Bench Lathe Operator Goals Bench Lathe Operator Goals Patient will improve cognitive-communication necessary for safety and daily living tasks with minimal assist. Speech-Plan Patient/Family Goals Patient/Family Goals: Patient plans on returning to his home, however discharge planning will be determined with the input of the team, patient and patient's progress. Treatment Plan Speech Therapy Treatment Plan: Continue Plan of Care Treatment Duration: Feb 22, 2020 Frequency: 5 times per week Estimated Hrs Per Day: .5 hour per day Rehab Potential: Fair Barriers to Learning: Patient's recent illness Pt/Family Agrees to Plan: Yes Safety Risks/Education Teaching Recipient: Patient Teaching Methods: Discussion Response to Teaching: Verbalize Understanding Education Topics Provided: Safety within his room and communication of wants/needs Time Speech Therapy Time In: 15:30 Speech Therapy Time Out: 15:45 Total Billed Time: 15 Billed Treatment Time 1, ARIADNE Spear Feb 13, 2020 14:32
--- NOTE | 2020-02-13 14:41 | Physical Therapy Daily Note ---
PT Daily Note-Current Subjective Pt. up in recliner asleep when this FASHION INTERN arrived. Pt. difficult yo awaken as he is [place] and doesnt wear his hearing aides. Pt. playfully resistant to therapy then agrees . Pt. states during Rx that he is not dizzy but does have some low back pain during sit to stand that he rates at 6/10 but is alleviated by change of position Pain Numeric Pain Scale: 6 Location: Medial Location Body Site: Back Pain Description: Stabbing Appearance pale, frail, weak Mental Status Attachments: Other-See Comments (aspen cervical collar) Transfers SCALE: Activities may be completed with or without assistive devices. 8-Hlygrqvvid-monrsfa completes the activity by him/herself with no assistance from a helper. 5-Set-up or Clean-up Assistance-helper sets up or cleans up; patient completes activity. Patterson assists only prior to or following the activity. 4-Supervision or Touching Assistance-helper provides verbal cues and/or touching/steadying and/or contact guard assistance as patient completes activity . Assistance may be provided throughout the activity or intermittently. 3-Partial/Moderate Assistance-helper does LESS THAN HALF the effort. Patterson lifts, holds or supports trunk or limbs, but provides less than half the effort. 2-Substantial/Maximal Assistance-helper does MORE THAN HALF the effort. Patterson lifts or holds trunk or limbs and provides more than half the effort. 8-Rftcpflmn-gjfkai does ALL the effort. Patient does none of the effort to complete the activity. Or, the assistance of 2 or more helpers is required for the patient to complete the activity. If activity was not attempted, code reason: 7-Patient Refused. 9-Not Applicable-not attempted and the patient did not perform the activity before the current illness, exacerbation or injury. 10-Not Attempted due to Environmental Limitations-(lack of equipment, weather restraints, etc.). 88-Not Attempted due to Medical Conditions or Safety Concerns. Roll Left & Right (QC): 6 Sit to Lying (QC): 6 Sit to Stand (QC): 5 Chair/Zse-dx-Xkigi Xfer(QC): 4 Gait Training Gait Assistive Device: FWW only a few feet recliner to bed approx 7 ft with CGA and some instruction for turning Exercises Supine Ex: Bridging, Rolling (x2), Heel Slides, Straight leg raise, Hip abd/add Supine Reps: 10 Seated Therapy Exercises: Ankle pumps, Sit to stand (x5), Long arc quads, Hip flexion, Hip abd/add Seated Reps: 12 seated UE shoulder flexion and abduction x 12 ea Treatments Pt. with orthostatic hypotension in AM RX was monitored this Rx : seated BP:107/66, HR 98, O2 sats 97%, standin/50 after in stance approx 45 sec. HR 99. Pt. then layed down and did LE exercises after short rest. Assessment Current Status: Fair Progress Pt. with orthostatic hypotension in stance, as well as c/o fatigue and a need to rest . PT Short Term Goals Short Term Goals Time Frame: Feb 20, 2020 Roll Left & Right: 5 Sit to lyin Lying to sitting on side of be: 5 Sit to stand: 5 Chair/bcd-yr-aoera transfer: 5 Walk 10 feet: 5 Walk 50 feet with two turns: 5 Walk 150 feet: 5 PT Assisted Goals Geomorphology Teacher Goals PT Assisted Goals Time Frame: Mar 05, 2020 Roll Left & Right (QC): 6 Sit to Lying (QC): 6 Lying-Sitting on Side/Bed(QC): 6 Sit to Stand (QC): 6 Chair/Igu-em-Wvxee Xfer(QC): 6 Toilet Transfer (QC): 6 Car Transfer (QC): 6 Does the Patient Walk: Yes Walk 10 feet (QC): 6 Walk 50ft with 2 Turns (QC): 6 Walk 150 ft (QC): 6 Walking 10ft on Uneven Surface: 6 1 Step (curb) (QC): 4 4 Steps (QC): 4 12 Steps (QC): 4 Picking up an Object (QC): 4 Wheel 50 feet with 2 turns (QC: 9 Wheel 150 feet: 9 PT Plan Treatment/Plan Treatment Plan: Continue Plan of Care Treatment Plan: Bed Mobility, Education, Functional Activity Jean, Functional Strength, Group Therapy, Gait, Safety, Therapeutic Exercise, Transfers Treatment Duration: Mar 05, 2020 Frequency: At least 5 of 7 days/Wk (IRF) Estimated Hrs Per Day: 1.5 hours per day Patient and/or Family Agrees t: Yes Safety Risks/Education Patient Education: Transfer Techniques, Correct Positioning, Safety Issues Teaching Recipient: Patient Teaching Methods: Demonstration, Discussion Response to Teaching: Verbalize Understanding, Return Demonstration, Reinforcement Needed Time/GCodes Time In: 1400 Time Out: 1445 Total Billed Treatment Time: 45 Total Billed Treatment 1,EX25m,FA20m EVELIA VALERIO FASHION INTERN Feb 13, 2020 14:40
[2020-02-13] MEDS: DICLOFENAC 1% GEL 100 GM (VOLTAREN) TUBE TP SCH ×2 (17:00→21:03)
--- NOTE | 2020-02-13 18:00 | NUR ---
NOTIFIED DR. OLIVA AT THIS TIME, THAT NO DVT OR PPX ON EMAR. DR. OLIVA SCD'S ONLY NO BLOOD THINNERS.
[2020-02-13 18:49] VITALS: BP 121/62
--- NOTE | 2020-02-13 19:25 | NUR ---
bedside report received from MIKE VEE, assume care of pt
[2020-02-13] MEDS: TAMSULOSIN 0.4 MG (FLOMAX) CAP PO SCH (21:00)
[2020-02-13] MEDS: LACTOBACILLUS ACIDOPHILUS (PROBIOTIC) CAPSULE PO SCH (21:00)
[2020-02-13] MEDS: ASPIRIN E.C. 81 MG (ECOTRIN) TAB PO SCH (21:00)
[2020-02-13] MEDS: SIMvastatin 10 MG (ZOCOR) TAB PO SCH (21:00)
--- NOTE | 2020-02-13 21:00 | NUR ---
pt refused Senokot & miralax, pt refused Voltaren gel states I do not hurt, side rails up x4, call light within reach, bed alarm on
[2020-02-13] MEDS: SENNA W/DOCUSATE (SENOKOT S) TABLET PO SCH (21:02)
[2020-02-13] MEDS: polyethylene glycoL POWDER 17 GM (MIRALAX) PACK PO SCH (21:02)
--- NOTE | 2020-02-13 21:42 | PM&R Post Admission Assessment ---
PM&R HP Date of Visit: Feb 13, 2020 Time of Visit: 15:15 History of Present Illness CC: Debility HPI: This is an 84yoWM clinic patient of Dr Barrietnos who was transferred to IRF from [facility] after a lengthy stay for delirium following a complex stay at [facility] which included PNA, ARF, NM, SBO and severe debility requiring supportive care at the MO prior to tolerating structured PT OT in IRF. PLOF was using a walker. Currently he is sleeping but he did wake up enough for me to introduce myself and perform exam. BP has been varied giving rise to poor exercise stamina. Per Mauricio Morgan, MSIV: History: Mr. Glez is an 84 year old male arriving in the IRF after being transferred from [facility]. He has a past medical history of HTN, bovine aortic valve replacement, and non insulin dependent DMII. He was transferred from [facility] to [facility] 01/27 after initially being admitted to [facility] 01/11 with fever and non-productive cough, dizziness, weakness, and a near-syncopal episode. He was admitted and diagnosed with pneumonia, acute respiratory failure, sepsis, and RUSTAM, and confusion was noted. He was found to have strep bacteremia. Tested negative for COVID. 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 He had abdominal distension requiring NG tube, which was removed 01/17. He was agitated and at times aggressive, particularly in the evenings and night time, requiring a sitter, and he was diagnosed with delirium prior to discharge. While at [facility], his delirium improved, but he experienced multiple falls. Several times he was found lying on the floor, and did not recall how he got there, but on one occasion he recalled sliding to the floor off the bed. He sustained no injuries due to these falls. [facility] reports that his cognition and strength improved during his stay, he advanced to a PO diet with good appetite, and he is able to ambulate with a walker. When seen today, he was alert and oriented, but hard of hearing leading to some confusion. He has no complaints, denies any fever, chills, CP, SOB, cough, abdominal pain, constipation, diarrhea, dysuria, hematuria, numbness, tingling, or paresthesias. Physical Exam: Alert and oriented, in no apparent distress -Eyes- PERRL/EOMI bilaterally -ENT- no neck tenderness, no lymphadenopathy -Cardiac- RRR, no murmur -Pulmonary- CTAB, no wheezes, no crackles -GI- normal bowel sounds, no abdominal tenderness, no masses palpated -Extremity- 2+ radial and pedal pulses, no LE edema -Neuro- field cane scale clerk strength 5+, 5+ strength pushing and pulling, 5+ ankle flexion/extension Assessment/Plan: Critical illness myopathy continue OT/PT DMII not on any medications at home at this time, monitor glucose HTN hypotensive today, not on any medications at home at this time CKD3 RUSTAM from prior hospitalization resolved, most recent creatinine at acceptable range. monitor kidney function HLPD not on any lipid lowering medication at this time Anemia stable when discharged, monitor if symptoms such as fatigue/pallor develop GERD taking omeprazole at home, consider giving as needed Neuropathy no complaints today Aortic valve replacement on aspirin 81 mg, MARCY January 15 showed valve was functioning appropriately hx of type II NM on aspirin 81 mg, monitor CP, SOB hx of near-syncopal event monitor BP, monitor for signs of orthostatic hypotension leading to dizziness, syncope Past Plcslqj-Qwkptn-Bxawsn Hx Past Med/Social Hx: Reviewed Nursing Past Med/Soc Hx, Reviewed and Corrections made Patient Social History Marrital Status: Employed/Student: retired Alcohol Use: Denies Use Recreational Drug Use: No Smoking Status: Former Smoker Former Smoker, Quit: Feb 12, 1990 Type Used: Cigarettes 2nd Hand Smoke Exposure: No Physical Abuse Screen: No Sexual Abuse: No Recent Foreign Travel: No (N) Contact w/other who traveled: No (N) Recent Hopitalizations: Yes (1 month ago) Recent Infectious Disease Expo: No Immunizations Up To Date Tetanus Booster (TDap): Unknown Date of Pneumonia Vaccine: Feb 13, 2016 Seasonal Allergies Seasonal Allergies: No Past Medical History Surgeries: Appendectomy, Joint Replacement, Orthopedic, Valve Replacement Respiratory: Pneumonia Currently Using CPAP: No Currently Using BIPAP: No Cardiac: High Cholesterol, Hypertension, Valvular Heart Disease Neurological: Dementia Sexually Transmitted Disease: No HIV/AIDS: No Genitourinary: Prostate Problems, Epi/Hypospadias Gastrointestinal: Gastroesophageal Reflux Musculoskeletal: Arthritis Endocrine: Diabetes, Non-Insulin dep Hearing Impairment: Hard of Hearing Cancer: Skin Did You Recieve Any Treatments: Yes What Type of Treatment Did You: Surgical Intervention History of Blood Disorders: No Family History Alcoholism G8 BROTHER Arthritis 19 MOTHER Completed stroke 19 FATHER Diabetes mellitus 19 MOTHER Hypertension 19 FATHER 19 MOTHER Myocardial infarction G8 SISTER No Pertinent Family Hx Prior Level of Function Bed Mobility: 6 Transfers: 6 Gait: 6 Stairs: 6 Indoor Mobility (Ambulation): Independent Stairs: Independent Self Care: Independent Functional Cognition: Independent 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 Drive Self: Yes Current Level of Fuctioning Roll Left to Right: 6 Sit to Lyin Lying to Sitting/Side of Bed: 5 Sit to Stand: 5 Chair/Uvc-kv-Hiwvt Xfer: 4 Car Transfer: 4 Does the Patient Walk: Yes Mode of Locomotion: Walk Anticipated Mode of Locomotion: Walk Walk 10 feet: 4 Walk 50 ft with 2 Turns: 4 Walk 150 ft: 4 Walking 10ft on uneven surface: 4 Gait Assistive Device: FWW Does the Pt Use a Wheelchair: Yes Wheel 50 ft with 2 turns: 9 Wheel 150 ft: 9 #of Steps: 1 1 Step (curb): 4 4 Steps: 88 Walking Assistive Device: Walker 12 Steps: 88 Picking up an Object: 88 Eatin (completes drinking/ bringing items to mouth with IND.) Oral Hygiene: 7 (denies at this time due to no dentation. ) Shower/Bathe Self: 7 (denies at this time as he "doesn't feel like showering right now," due to fatigue. ) Upper Body Dressin (based on clinical judgmenet and UE movement, pt s/u for shirt don/ doffing. ) Lower Body Dressin (Pt requires Jass for UB jacket donning EOB. ) On/Off Footwear: 4 (Pt is SBA with sock/ shoe donning and doffing. ) Toileting Hygiene: 4 (Pt completes BM during session (CGA for toilet transfer with cues for safety), pt states "I think I got it all wiped up," requires cues for continuation.) PM&R Allergy/Meds/Data Review Allergies Coded Allergies: No Known Drug Allergies (Unverified , 07/13/17) Home Medications Scheduled Aspirin (Aspirin EC), 81 MG PO BID, (Reported) Diclofenac Sodium (Voltaren), 4 GM TP QID, (Reported) Lactobac Cmb #3/Fos/Pantethine (Probiotic & Acidophilus Cap), 1 EACH PO HS, (Reported) Omeprazole (Omeprazole), 20 MG PO DAILY, (Reported) Pioglitazone HCl (Actos), 45 MG PO DAILY, (Reported) Pravastatin Sodium (Pravastatin Sodium), 10 MG PO DAILY, (Reported) Tamsulosin HCl (Flomax), 0.4 MG PO HS, (Reported) Zolpidem Tartrate (Ambien Cr), 6.25 MG PO HS, (Reported) Miscellaneous Medications Ferrous Sulfate, Dried (Iron), 160 MG PO, (Reported) [VIT e], (Reported) Discontinued Medications Lorazepam (Ativan), 0.25 MG PO TID PRN for ANXIETY Discontinued Reason: No Longer Taking Melatonin (Melatonin), 5 MG PO HS Discontinued Reason: No Longer Taking Mirabegron (Myrbetriq), 50 MG PO HS, (Reported) Discontinued Reason: No Longer Taking Current Medications Current Medications Reviewed Review of Systems Constitutional: see HPI, weakness EENTM: no symptoms reported Respiratory: no symptoms reported Cardiovascular: no symptoms reported Gastrointestinal: constipation Genitourinary: no symptoms reported Musculoskeletal: back pain, joint pain Skin: no symptoms reported Psychiatric/Neurological: Anxiety, Weakness Physical Exam Physical Exam Vital Signs Vital Signs - First Documented 02/13/20 10:57 Temp 36.4 Pulse 94 Resp 18 B/P (MAP) 104/58 Pulse Ox 95 O2 Delivery Room Air Capillary Refill : Height, Weight, BMI Height: '" Weight: lbs. oz. kg; 28.17 BMI Method: General Appearance: No Apparent Distress, WD/WN, Chronically ill Eyes: Bilateral Eye Normal Inspection, Bilateral Eye PERRL HEENT: PERRL/EOMI, Normal ENT Inspection, Pharynx Normal Neck: Full Range of Motion, Normal Inspection, Non Tender, Supple, Carotid Bruit Respiratory: Chest Non Tender, Lungs Clear, Normal Breath Sounds, No Accessory Muscle Use, No Respiratory Distress Cardiovascular: Regular Rate, Rhythm, No Edema, No Gallop, No JVD, Normal Peripheral Pulses, Systolic Murmur Gastrointestinal: Normal Bowel Sounds, No Organomegaly, No Pulsatile Mass, Non Tender, Soft Back: Normal Inspection, No CVA Tenderness, No Vertebral Tenderness Extremity: Normal Capillary Refill, Normal Inspection, Normal Range of Motion, Non Tender, No Calf Tenderness, No Pedal Edema Neurologic/Psychiatric: Alert, Oriented x3, Normal Mood/Affect, under baster II-XII Norm as Tested, Abnormal Gait, Motor Weakness (generalized legs greater loss than arms 4/5) Skin: Normal Color, Warm/Dry Lymphatic: No Adenopathy PM&R Medical Assessment & Plan REHAB/MEDICAL ASSESSMENT AND PLAN: REHAB IMPAIRMENT GROUP: Debility ETIOLOGIC DIAGNOSIS: Debility The comorbidities that impact the patients function and/or functional outcome by: advanced age, recent delirium, recent NH placement, falls, confusion REHAB PLAN: The patient is being admitted to our comprehensive inpatient rehabilitation facility and can tolerate the intensity of service consisting of at least: 180 minutes of therapy a day, 5 out of 7 days a week Rehab treatment will consist of: PT OT will both focus on regaining function an d strength in order to return home safely and prevent falls and ST will support cognition in order to decrease confusion The patient/family has a good understanding of our discharge process and will benefit from an interdisciplinary inpatient rehabilitation program. The patient has potential to make improvement and is in need of at least two of the following multidisciplinary therapies including but not limited to physical, occupational, speech, and prosthetics and orthotics. Additionally the patient will need services from respiratory, nutritional services, wound care, psychology, etc. (Customize this to each patient). Given the patients complex condition and risk of further medical complications, rehabilitation services cannot be safely or effectively provided at a lower level of care such as a [facility] facility. BARRIERS TO DISCHARGE: Advanced age with recent falls at NH ESTIMATED LOS: 7 days DISPOSITION: Home RELEVANT CHANGES SINCE PREADMISSION SCREENING: I have compared the patients medical and functional status at the time of the preadmission screening and there are: no changes PROGNOSIS: Fair REHABILITATION GOALS: 1. PT OT will both focus on regaining function and strength in order to return home safely and prevent falls and ST will support cognition in order to decrease confusion All the above goals were reviewed with the patient and he/she is in agreement. By signing this document, I acknowledge that I have personally performed a full physical examination on this patient within 24 hours of admission to this inpatient rehabilitation facility and have determined the patient to be able to tolerate the above course of treatment at an intensive level for a reasonable period of time. I will be completing a detailed individualized Plan of Care for this patient by day #4 of the patients stay based upon the Preadmission Screen, the Post-Admission Evaluation, and the therapy evaluations. Admission Dx/Comorbidities: (1) Debility Status: Acute ICD Codes: R53.81 - Other malaise (2) Delirium ICD Codes: R41.0 - Disorientation, unspecified (3) Advanced age ICD Codes: R54 - Age-related physical debility (4) Falls frequently ICD Codes: R29.6 - Repeated falls (5) Heart valve replaced ICD Codes: Z95.2 - Presence of prosthetic heart valve (6) Hypertension ICD Codes: I10 - Essential (primary) hypertension (7) Orthostatic hypotension ICD Codes: I95.1 - Orthostatic hypotension (8) Acute kidney injury superimposed on chronic kidney disease Status: Acute ICD Codes: N17.9 - Acute kidney failure, unspecified; N18.9 - Chronic kidney disease, unspecified (9) T2DM (type 2 diabetes mellitus) Status: Chronic ICD Codes: E11.9 - Type 2 diabetes mellitus without complications (10) Anemia Status: Chronic ICD Codes: D64.9 - Anemia, unspecified (11) HTN (hypertension) ICD Codes: I10 - Essential (primary) hypertension Assessment/Plan Assessment and Plan Assess & Plan/Chief Complaint Assessment: Severe debility Falls Dementia? Valve replacement status HTN Orthostatic hypotension CRI Anemia of kidney disease Plan: Home meds addressed per PCP Fall risk Monitor BP closely Pain control SANJANA KOWALSKI DO Feb 13, 2020 21:42
[2020-02-14 05:25] VITALS: BP 119/56
--- NOTE | 2020-02-14 06:25 | Individualized Plan of Care ---
Individualized Plan of Care Rehab Nursing IPOC Order Admission Date Feb 13, 2020 at 10:35 Current Orders Orders Admission Order(Inpt,Obs,Sdc) (02/13/20 09:34) Vital Signs: Per Unit Policy ( 08,16,00 (02/13/20 09:34) Pyrotechnic Assembler-Inpt Rehab Con (02/13/20 09:34) Rehab Nursing Orders-Ipoc (02/13/20 09:34) Physical Therapy Rehab Orders (02/13/20 09:34) Occupational Therapy Rehab Ord (02/13/20 09:34) Speech Therapy Rehab Orders (02/13/20 09:34) Cbc With Automated Diff (02/14/20 06:00) Comprehensive Metabolic Panel (02/14/20 06:00) General/Regular (02/13/20 Lunch) Intake & Output , (02/13/20 09:34) Precautions (Aru) (02/13/20 09:34) Weekly Weight WEEK (02/13/20 09:34) Rehab-Intensity Of Therapy (02/13/20 09:34) Initiate Admission Nursing Pro .admission (02/13/20 09:34) Acetaminophen Tablet (Tylenol Tablet) (02/13/20 09:45) Alprazolam Tablet (Xanax Tablet) (02/13/20 09:45) Calcium Carbonate Chew Tablet (Antacid C (02/13/20 09:45) Diphenhydramine Tablet (Benadryl Tablet) (02/13/20 09:45) Docusate Sodium Capsule (Colace Capsule) (02/13/20 09:45) Bisacodyl Suppository (Dulcolax Supposit (02/13/20 09:45) Lactulose Oral Solution (Enulose Oral So (02/13/20 09:45) Na Phos/Na Biphos Enema (Fleet Enema Rex (02/13/20 09:45) Guaifenesin/Codeine Syrup (Robitussin Ac (02/13/20 09:45) Loperamide Tablet (Imodium Tablet) (02/13/20 09:45) Melatonin Tablet (Melatonin Tablet) (02/13/20 09:45) Polyethylene Glycol Powder Pkt (Miralax (02/13/20 21:00) Ondansetron Oral Dissolve Tab (Zofran (02/13/20 09:45) Senna S Tablet (Senokot S Tablet) (02/13/20 21:00) Initiate Admission Nursing Pro .admission (02/13/20 09:34) Ambulate 08,12,20 (02/13/20 11:17) Sequential Compression Device Q4H (02/13/20 11:17) Dvt/Vte Risk - Notifiy Physici Q4H (02/13/20 11:17) Ensure Enlive (02/13/20 Lunch) Transfer - Bed/Room/Location (02/13/20 10:35) Aspirin Enteric Coated Tablet (Ecotrin T (02/13/20 21:00) Diclofenac 1% Gel (Voltaren 1% Gel) (02/13/20 17:00) Tamsulosin Capsule (Flomax Capsule) (02/13/20 21:00) Lactobacillus Acidophilus Cap (Acidophil (02/13/20 21:00) Pioglitazone Tablet (Actos Tablet) (02/14/20 07:00) Pantoprazole Tablet (Protonix Tablet) (02/14/20 09:00) Ferrous Sulfate Tablet (Feosol Tablet) (02/14/20 07:00) Dl-Alpha Tochopheryl Capsule (Vitamin E (02/14/20 09:00) Simvastatin Tablet (Zocor Tablet) (02/13/20 21:00) Patient Visit (02/13/20 ) Pt Eval Moderate Complexity (02/13/20 ) Patient Visit (02/13/20 ) Speech Sound Lang Comp (02/13/20 ) Patient Visit (02/13/20 ) Exercise Therap, Ea 15 Min (02/13/20 ) Functional Activities, Ea 15 (02/13/20 ) Patient Visit (02/14/20 ) Treat. Speech/Lang/Voice (02/14/20 ) Patient Visit (02/14/20 ) Exercise Therap, Ea 15 Min (02/14/20 ) Functional Activities, Ea 15 (02/14/20 ) Rehab Nursing Orders: Ongoing Assess. of Function Status, Bladder Management, Bladder Scan, Bladder Training, Bowel Management, Bowel Training, Disease Management & Educaiton, DVT Prophylaxis, Fall Prevention, Fluid/Electrolyte/Nutrition Mgmt, Infection Prevention, Medication Management & Education, Management of Risks & Complications, Management of Skin Intergrity, Nutrition Management, Pain Management, Patient/Family Support, Safety Management Intensity of Therapy to be met Patient to be seen: Min.3h per day/5 of 7d PT IPOC Problem List: Activity Tolerance, Functional Strength, Balance Treatment Plan: Continue Plan of Care Bed Mobility, Education, Functional Activity Jean, Functional Strength, Group Therapy, Gait, Safety, Therapeutic Exercise, Transfers Treatment Duration: Mar 05, 2020 Frequency: At least 5 of 7 days/Wk (IRF) Estimated Hrs Per Day: 1.5 hours per day OT IPOC Problems: Decreased Activ Tolerance, Decreased UE Strength, Impaired Funct Balance, Impaired I ADL's, Impaired Self-Care Skills OT Treatment, Training and Edu: Yes Plan of Care: ADL Retraining, Caregiver Training, Concurrent Therapy, Functional Mobility, Group Exercise/Act as Ind, UE Funct Exercise/Act, UE Neuromus Re-Ed/Coord Treatment Duration: Feb 27, 2020 Frequency: At least 5 of 7 days/Wk (IRF) Estimated Hrs Per Day: 1.[address] IPOC Speech Therapy Treatment Plan: Continue Plan of Care Treatment Duration: Feb 22, 2020 Frequency: 5 times per week Estimated Hrs Per Day: .5 hour per day Pyrotechnic Assembler/Case Mgmt Pyrotechnic Assembler/Case Managemen: Discharge Planning Dietitian/Automotive Sales Professional Dietitian/Automotive Sales Professional to monitor nutritional status and make changes and/or recommendations as needed and work with speech pathology on dietary upgrades as the occur. Physician IPOC Medical Issues being managed closely and that require the 24 hour availability of a physician: Recent prolonged hospital stay with severe delirium requires close monitoring for recurrent decompensation Medical Issues: Bowel/Bladder Function, DVT Prophylaxis, Falls Precautions, Fluid/Electrolyte/Nutrition Balance, Infection Protection, Pain Management Brief Synthesis of Preadmission Screen, Post-Admission Evaluation, and Therapy Evaluations: PT OT will focus on regaining independence in ADL's and ambulation and fall risk prevention and ST will fine tune cognition losses Medical Prognosis: Good Anticipated Length of Stay: 7 days SANJANA KOWALSKI DO Feb 14, 2020 06:25
--- NOTE | 2020-02-14 06:25 | PM&R Progress Note ---
Subjective HPI/CC On Admission Date Seen by Provider: Feb 14, 2020 Time Seen by Provider: 09:45 Subjective/Events-last exam Pt doing pretty well Potassium 3.0 will be supplemented by PCP Very debilitated and chronically ill appearance with paleness Bowels moved yesterday Checked meds and labs Conferred with RN Reviewed therapy notes Review of Systems General: Fatigue, Malaise Neurological: Weakness Objective Exam Vital Signs Vital Signs Date Time Temp Pulse Resp B/P (MAP) Pulse Ox O2 Delivery O2 Flow Rate FiO2 02/14/20 18:14 36.0 92 18 125/68 (87) 93 Room Air Capillary Refill : Less Than 3 Seconds General Appearance: No Apparent Distress, WD/WN, Chronically ill HEENT: PERRL/EOMI, Normal ENT Inspection, Pharynx Normal Neck: Full Range of Motion, Normal Inspection, Non Tender, Supple, Carotid Bruit Respiratory: Chest Non Tender, Lungs Clear, Normal Breath Sounds, No Accessory Muscle Use, No Respiratory Distress Cardiovascular: Regular Rate, Rhythm, No Edema, No Gallop, No JVD, Normal Peripheral Pulses, Systolic Murmur Gastrointestinal: Normal Bowel Sounds, No Organomegaly, No Pulsatile Mass, Non Tender, Soft Back: Normal Inspection, No CVA Tenderness, No Vertebral Tenderness Extremity: Normal Capillary Refill, Normal Inspection, Normal Range of Motion, Non Tender, No Calf Tenderness, No Pedal Edema Neurologic/Psychiatric: Alert, Oriented x3, Normal Mood/Affect, applications packager II-XII Norm as Tested, Abnormal Gait, Motor Weakness (generalized legs greater loss than arms 4/5) Skin: Normal Color, Warm/Dry Lymphatic: No Adenopathy Results/Procedures Lab Laboratory Tests 02/14/20 06:17 Patient resulted labs reviewed. FIM Transfers Therapy Code Descriptions/Definitions Functional [place] Measure: 0=Not Assessed/NA 4=Minimal Assistance 1=Total Assistance 5=Supervision or Setup 2=Maximal Assistance 6=Modified [place] 3=Moderate Assistance 7=Complete IndependenceSCALE: Activities may be completed with or without assistive devices. 7-Lsbugfkdal-yglfsol completes the activity by him/herself with no assistance from a helper. 5-Set-up or Clean-up Assistance-helper sets up or cleans up; patient completes activity. [place] assists only prior to or following the activity. 4-Supervision or Touching Assistance-helper provides verbal cues and/or touching/steadying and/or contact guard assistance as patient completes activity. Assistance may be provided throughout the activity or intermittently. 3-Partial/Moderate Assistance-helper does LESS THAN HALF the effort. [place] lifts, holds or supports trunk or limbs, but provides less than half the effort. 2-Substantial/Maximal Assistance-helper does MORE THAN HALF the effort. [place] lifts or holds trunk or limbs and provides more than half the effort. 5-Gdbnhkquw-gtnvin does ALL the effort. Patient does none of the effort to complete the activity. Or, the assistance of 2 or more helpers is required for the patient to complete the activity. If activity was not attempted, code reason: 7-Patient Refused. 9-Not Applicable-not attempted and the patient did not perform the activity before the current illness, exacerbation or injury. 10-Not Attempted due to Environmental Limitations-(lack of equipment, weather restraints, etc.). 88-Not Attempted due to Medical Conditions or Safety Concerns. Roll Left to Right (QC): 6 Sit to Lying (QC): 6 Sit to Stand (QC): 5 Chair/Ona-fd-Vneyk Xfer(QC): 4 Car Transfer (QC): 4 Gait Training Does the Patient Walk?: Yes Walk 10 feet (QC): 4 Walk 50 ft with 2 Turns(QC): 4 Walk 150 ft (QC): 4 Walking 10ft/uneven surface-QC: 4 Gait Assistive Device: FWW Wheelchair Training Does the Pt Use a Wheelchair?: Yes Wheel 50 ft with 2 turns (QC): 9 Wheel 150 ft (QC): 9 Stair Training #of Steps: 1 1 Step (curb) (QC): 4 4 Steps (QC): 88 12 Steps (QC): 88 Balance Picking up an Object (QC): 88 ADL-Treatment Eating (QC): 6 (completes drinking/ bringing items to mouth with IND.) Oral Hygiene (QC): 7 (denies at this time due to no dentation. ) Shower/Bathe Self (QC): 7 (denies at this time as he "doesn't feel like showe ring right now," due to fatigue. ) Upper Body Dressing (QC): 5 (based on clinical judgmenet and UE movement, pt s/u for shirt don/ doffing. ) Lower Body Dressing (QC): 3 (Pt requires Jass for UB jacket donning EOB. ) On/Off Footwear (QC): 4 (Pt is SBA with sock/ shoe donning and doffing. ) Toileting Hygiene (QC): 4 (Pt completes BM during session (CGA for toilet transfer with cues for safety), pt states "I think I got it all wiped up," requires cues for continuation.) Assessment/Plan Assessment and Plan Assess & Plan/Chief Complaint Assessment: Severe debility Falls Dementia? Valve replacement status HTN Orthostatic hypotension CRI Anemia of kidney disease Plan: Home meds addressed per PCP Fall risk Monitor BP closely Pain control 02/14/20: Replace Potassium per Dr. 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
[2020-02-14 06:28] LABS: BASOPHILS % (AUTO) 0 % (0-10); EOSINOPHILS # (AUTO) 0.1 10^3/uL (0.0-0.3); EOSINOPHILS % (AUTO) 2 % (0-10); HEMATOCRIT 34 % (40-54); HEMOGLOBIN 11.2 G/DL (13.3-17.7); LYMPHOCYTES # (AUTO) 0.7 X 10^3 (1.0-4.0); LYMPHOCYTES % (AUTO) 15 % (12-44); MEAN CORPUSCULAR HEMOGLOBIN 29 PG (25-34); MEAN CORPUSCULAR HGB CONC 33 G/DL (32-36); MEAN CORPUSCULAR VOLUME 89 FL (80-99); MEAN PLATELET VOLUME 9.3 FL (7.4-10.4); MONOCYTES # (AUTO) 0.6 X 10^3 (0.0-1.0); MONOCYTES % (AUTO) 14 % (0-12); NEUTROPHILS # (AUTO) 3.1 X 10^3 (1.8-7.8); NEUTROPHILS % (AUTO) 70 % (42-75); PLATELET COUNT 313 10^3/uL (130-400); RED CELL DISTRIBUTION WIDTH 16.4 % (10.0-14.5); WHITE BLOOD COUNT 4.5 10^3/uL (4.3-11.0)
[2020-02-14] MEDS: FERROUS SULF 325 MG (IRON) TAB PO SCH (06:36)
[2020-02-14] MEDS: PIOGLITAZONE 30MG (ACTOS) TAB PO SCH (06:36)
[2020-02-14 06:49] LABS: ALBUMIN 2.9 GM/DL (3.2-4.5)
[2020-02-14 06:51] LABS: CALCIUM 8.3 MG/DL (8.5-10.1)
[2020-02-14 06:52] LABS: TOTAL PROTEIN 5.6 GM/DL (6.4-8.2)
[2020-02-14 06:56] LABS: CREATININE SERUM 1.25 MG/DL (0.60-1.30)
[2020-02-14] MEDS: ASPIRIN E.C. 81 MG (ECOTRIN) TAB PO SCH ×2 (08:36→21:26)
[2020-02-14] MEDS: PANTOPRAZOLE 20 MG TABLET (PROTONIX) PO SCH (08:36)
[2020-02-14] MEDS: VITAMIN E 180 MG (400 UNITS) CAP PO SCH (08:36)
--- NOTE | 2020-02-14 09:09 | Speech Therapy Daily Note ---
Speech Daily Progress Note Subjective Date Seen by Provider: Feb 14, 2020 Time Seen by Provider: 00:30 Patient was resting in his bed following breakfast when I entered his room. Objective Patient completed a speech task of sentence completion using 2 given unrelated words with 80% given min to mod repetitions. Assessment Assessment Current Status: Good Progress Treatment Plan Continue Plan of Care Speech Short Term Goals Short Term Goals Short Term Goals 1) Patient will complete memory tasks related to his daily needs at 90% or greater with minimal cuing. 2) Patient will complete safety awareness tasks related to his daily needs at 90% or greater with minimal cuing. 3) Patient will complete problem solving tasks related to his daily needs at 90% or greater with minimal cuing. Speech Modern Languages Professor Goals Nursing Home Goals Patient will improve cognitive-communication necessary for safety and daily living tasks with minimal assist. Speech-Plan Patient/Family Goals Patient/Family Goals: Patient plans on returning to his home where he lives with his . Treatment Plan Speech Therapy Treatment Plan: Continue Plan of Care Treatment Duration: Feb 22, 2020 Frequency: 5 times per week Estimated Hrs Per Day: .5 hour per day Rehab Potential: Fair Barriers to Learning: Patient's recent illness status Pt/Family Agrees to Plan: Yes Safety Risks/Education Teaching Recipient: Patient Teaching Methods: Demonstration, Discussion Response to Teaching: Verbalize Understanding, Return Demonstration Education Topics Provided: Continued safety within his room Time Speech Therapy Time In: 08:00 Speech Therapy Time Out: 08:30 Total Billed Time: 30 Billed Treatment Time 1MIKAY[address]ETH[address] ST Feb 14, 2020 09:09
[2020-02-14] MEDS: SENNA W/DOCUSATE (SENOKOT S) TABLET PO SCH ×2 (09:37→19:41)
[2020-02-14] MEDS: DICLOFENAC 1% GEL 100 GM (VOLTAREN) TUBE TP SCH ×4 (09:37→19:41)
[2020-02-14] MEDS: polyethylene glycoL POWDER 17 GM (MIRALAX) PACK PO SCH ×2 (09:37→19:41)
--- NOTE | 2020-02-14 09:41 | History & Physicial ---
History of Present Illness History of Present Illness Reason for visit/HPI PT IS AN 84 Y/O MALE WHO IS WELL KNOWN TO ME FROM CLINIC. JAKE HAD A PROLONGED HOSPITAL STAY AFTER PNEUMONIA WITH CRITICAL CARE MYOPATHY. HE WAS ADMITTED TO THE HOSPITAL, TREATED FOR PNEUMONIA, SPENT TIME IN THE ICU, THEN ON 4TH FLOOR AND WAS EVENTUALLY TRANSFERRED TO [facility] FOR PROLONGED THERAPY. AFTER ABOUT A MONTH AT [facility], JAKE'S DELIRIUM CLEARED, HE WAS MORE ROBUST PHYSICALLY AND WE REACHED OUT TO [facility]IA [facility] FOR MORE AGGRESSIVE THERAPY FOR PATIENT TO HAVE AN EVEN MORE SUCCESSFUL TRANSITION BACK INTO HIS HOME ENVIRONMENT. Date of Admission Feb 13, 2020 at 10:35 Date Seen by a Provider: Feb 14, 2020 Time Seen by a Provider: 08:40 I consulted on this patient on 02/14/20 08:40 Attending Physician Little Adamson DO Admitting Physician Nathaniel Barrientos MD Consult Allergies and Home Medications Allergies Coded Allergies: No Known Drug Allergies (Unverified , 07/13/17) Home Medications Aspirin 81 Mg Tablet.dr, 81 MG PO BID, (Reported) Diclofenac Sodium 100 Gm Gel..gram., 4 GM TP QID, (Reported) Lactobac Cmb #3/Fos/Pantethine 1 Each Capsule, 1 EACH PO HS, (Reported) Omeprazole 20 Mg Capsule.dr, 20 MG PO DAILY, (Reported) Pioglitazone HCl 45 Mg Tablet, 45 MG PO DAILY, (Reported) Pravastatin Sodium 10 Mg Tablet, 10 MG PO DAILY, (Reported) Tamsulosin HCl 0.4 Mg Cap, 0.4 MG PO HS, (Reported) Patient Home Medication List Home Medication List Reviewed: Yes Past Teritkn-Xpdnbo-Elwhae Hx Patient Social History Marrital Status: Living Status: LIVES AT HOME WITH SPOUSE IN [place] Employed/Student: retired Alcohol Use: Denies Use Recreational Drug Use: No Smoking Status: Former Smoker Former Smoker, Quit: Feb 12, 1990 Type Used: Cigarettes 2nd Hand Smoke Exposure: No Physical Abuse Screen: No Sexual Abuse: No Recent Foreign Travel: No (N) Contact w/other who traveled: No (N) Recent Hopitalizations: Yes (1 month ago) Recent Infectious Disease Expo: No Immunizations Up To Date Tetanus Booster (TDap): Unknown Date of Pneumonia Vaccine: Feb 13, 2016 Seasonal Allergies Seasonal Allergies: No Surgeries Yes (BOVINE AORTIC VALVE REPLACEMENT; CARDIAC CATHS; APPY; KNEE REPLACEMENT) Appendectomy, Joint Replacement, Orthopedic, Valve Replacement Respiratory Yes (PNA with Sepsis december of 2019) Pneumonia Currently Using CPAP: No Currently Using BIPAP: No Cardiovascular Yes (MILD DC -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;CARDIAC CATHS-NO INTERVENTION;BOVINE AORTIC RAKEL) High Cholesterol, Valvular Heart Disease Neurological Yes (HOSPITALIZATION RELATED DELIRIUM) Reproductive System Sexually Transmitted Disease: No HIV/AIDS: No Genitourinary Yes Prostate Problems, Epi/Hypospadias Gastrointestinal Yes Gastroesophageal Reflux Musculoskeletal Yes (KNEE REPLACEMENT) Arthritis Endocrine History of Endocrine Disorders: Yes Endocrine Disorders: Diabetes, Non-Insulin dep HEENT History of HEENT Disorders: Yes (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) Hearing Impairment: Hard of Hearing, Bilateral Hearing Aide Cancer Yes Skin Did You Recieve Any Treatments: Yes Type of Treatment: Surgical Intervention Psychosocial History of Psychiatric Problem: No Integumentary History of Skin or Integumenta: No Blood Transfusions History of Blood Disorders: No Reviewed Nursing Assessment Reviewed/Agree w Nursing PMH: Yes Family Medical History Significant Family History: Heart Disease, CAD Over 55 Years Old, Diabetes, Hypertension, Stroke Family Hx: Alcoholism G8 BROTHER Arthritis 19 MOTHER Completed stroke 19 FATHER Diabetes mellitus 19 MOTHER Hypertension 19 FATHER 19 MOTHER Myocardial infarction G8 SISTER Review of Systems Constitutional: No chills, No fever, No malaise; weakness, weight loss EENTM: hearing loss; No hoarseness, No throat pain Respiratory: No cough, No dyspnea on exertion, No short of breath, No wheezing Cardiovascular: No chest pain, No palpitations Gastrointestinal: No abdominal pain, No constipation, No diarrhea, No loss of appetite, No nausea, No vomiting Genitourinary: no symptoms reported Musculoskeletal: muscle weakness Skin: no symptoms reported Psychiatric/Neurological: Denies Anxiety, Denies Depressed; Weakness All Other Systems Reviewed Negative Unless Noted: Yes Physical Exam Vital Signs Vital Signs - First Documented 02/13/20 10:57 Temp 36.4 Pulse 94 Resp 18 B/P (MAP) 104/58 Pulse Ox 95 O2 Delivery Room Air Capillary Refill : Less Than 3 Seconds Height, Weight, BMI Height: '" Weight: lbs. oz. kg; 28.17 BMI Method: General Appearance: No Apparent Distress, WD/WN Eyes: Bilateral Eye Normal Inspection, Bilateral Eye PERRL, Bilateral Eye EOMI HEENT: PERRL/EOMI, Pharynx Normal Neck: Full Range of Motion, Non Tender, Supple Respiratory: Chest Non Tender, Lungs Clear, Normal Breath Sounds, No Accessory Muscle Use, No Respiratory Distress Cardiovascular: Regular Rate, Rhythm, Normal Peripheral Pulses Gastrointestinal: Normal Bowel Sounds, Non Tender, Soft Rectal: Deferred Back: No Vertebral Tenderness Extremity: Normal Capillary Refill, Normal Range of Motion, Non Tender, No Calf Tenderness, No Pedal Edema Neurologic/Psychiatric: Alert, Oriented x3, No Motor/Sensory Deficits, Normal Mood/Affect, cheesemaker II-XII Norm as Tested Skin: Normal Color, Warm/Dry, Other (SCATTERED BRUISING ON ARMS/LEGS) Lymphatic: No Adenopathy Assessment/Plan Assessment and Plan Problems: (1) Debility Status: Acute Assessment & Plan: DEBILITY FROM CRITICAL ILLNESS MYOPATHY - CONTINUE WITH THERAPY PT HAS HAD SIGNIFICANT IMPROVEMENT IN HIS STRENGTH BUT IS NOT YET SAFE ENOUGH FOR DISCHARGE BACK TO HOME. (2) Delirium Status: Resolved Assessment & Plan: DELIRIUM - RESOLVED -CONTINUE TO MONITOR SYMPTOMS CLOSELY DUE TO ENVIRONMENTAL CHANGE POSSIBLY CAUSING INCREASED RISK OF RESUMPTION OF DELIRIUM (3) Advanced age Status: Chronic (4) Falls frequently Status: Chronic (5) Heart valve replaced Status: Chronic (6) Orthostatic hypotension Status: Chronic Assessment & Plan: ORTHOSTATIC HYPOTENSION - INCREASE FLUID INTAKE ORALLY - DEPENDING ON SYMPTOMS - MAY NEED TO CONSIDER FLUDROCORTISONE IF DRAMATIC HYPOTENSION AND SYMPTOMS - HOWEVER PRIOR TO INITIATING FLUDROCORTISONE, WOULD CONSULT CARDIOLOGY (7) Acute kidney injury superimposed on chronic kidney disease Status: Acute (8) T2DM (type 2 diabetes mellitus) Status: Chronic Qualifiers: Qualified Codes: E11.9 - Type 2 diabetes mellitus without complications Assessment & Plan: DM - TYPE II - NON INSULIN DEPENDENT - RESTARTED ACTOS, NEED TO CHECK FSBS AND MAY NEED TO DECREASE ACTOS DUE TO WEIGHT LOSS AND DECREASED APPETITE (9) Anemia Status: Chronic Qualifiers: Qualified Codes: D50.8 - Other iron deficiency anemias Assessment & Plan: IRON DEFICIENCY ANEMIA -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
--- NOTE | 2020-02-14 10:15 | Occupational Ther Daily Note ---
OT Current Status-Daily Note Subjective Pt seen EOB, nursing present for medication management. Pt denies pain, agrees to shower/ shave this am. Pt alert, requires cues for thought completion at times as pt begins sentence and does not end thought. Mental Status/Objective Patient Orientation: Person, Place ADL-Treatment Therapy Code Descriptions/Definitions Functional [place] Measure: 0=Not Assessed/NA 4=Minimal Assistance 1=Total Assistance 5=Supervision or Setup 2=Maximal Assistance 6=Modified [place] 3=Moderate Assistance 7=Complete IndependenceSCALE: Activities may be completed with or without assistive devices. 3-Xuqffsuyxq-hbfslqc completes the activity by him/herself with no assistance from a helper. 5-Set-up or Clean-up Assistance-helper sets up or cleans up; patient completes activity. [place] assists only prior to or following the activity. 4-Supervision or Touching Assistance-helper provides verbal cues and/or touching/steadying and/or contact guard assistance as patient completes activity. Assistance may be provided throughout the activity or intermittently. 3-Partial/Moderate Assistance-helper does LESS THAN HALF the effort. [place] lifts, holds or supports trunk or limbs, but provides less than half the effort. 2-Substantial/Maximal Assistance-helper does MORE THAN HALF the effort. [place] lifts or holds trunk or limbs and provides more than half the effort. 6-Nzopfcihz-nzxtor does ALL the effort. Patient does none of the effort to complete the activity. Or, the assistance of 2 or more helpers is required for the patient to complete the activity. If activity was not attempted, code reason: 7-Patient Refused. 9-Not Applicable-not attempted and the patient did not perform the activity before the current illness, exacerbation or injury. 10-Not Attempted due to Environmental Limitations-(lack of equipment, weather restraints, etc.). 88-Not Attempted due to Medical Conditions or Safety Concerns. Eating (QC): 6 Oral Hygiene (QC): 7 (denies at this time, states willing to rinse mouth out "later") Bathing Location: L Arm, R Arm, L Upper Leg, R Upper Leg, L Lower Leg (including foot), R Lower Leg (including foot), Chest, Abdomen, Buttocks, Perineal Area Shower/Bathe Self (QC): 4 (SBA during shower transfer with cues for hand placementSBA during stance in shower, cues for use of grab bars for safety. ) Upper Body Dressing (QC): 5 (s/u shirt.) Lower Body Dressing (QC): 3 (cues for safety during doffing. min A due to fatigue and SOB post-shower. Requires assist threading over one leg during brief and pant donning. ) On/Off Footwear: 6 (Pt requires max A in shower as pt states fatigue and SOB. Pt recovers, able to complete footwear with IND. Doffs/ dons. ) Toileting Hygiene (QC): 4 (SBA during showering/ bottom hygiene.) Toilet Transfer (QC): 4 (cues for hand/ body placement) Other Treatment Pt's BP assessed in sit: 115/70, then in stance: 97/54. Pt denies lightheadedness/ dizzy. Pt agrees to shower. Pt able to gather clothing from bag, requests new brief. Pt ambulates to front of sink, sits to shave. Pt denies shaving after attempt due to electric razor pulling hair and manual razor no shave gel. Pt completes shower with SBA throughout; pt educated on need for OT to be alerted when pt desires to stand for bottom hygiene, pt able to relay message prior to stance without cues. Pt dresses in shower, increased SOB noted. Pt requires cues for breathing during LB dressing. As pt in shower, OT does not address 02 sats until in sit in recliner: Pt completes sock doff/ donning and 02 assessed at 94%. Pt completes UE theraband ex with min cues: 10 reps bilaterally of back flies, tricep extensions, and back pulls. Pt educated on PT's session post-OT. Pt states, "You keep getting sneakier and sneakier." Pt educated on schedule and this being completed each morning as a way for pt to get idea of outlook on day. Pt able to state when to expect PT. All needs met, call light in reach, pt's chair alarm on post-session. Education OT Patient Education: Correct positioning, Exercise program, Home exercise program, Modified ADL techniques, Progress toward Goal/Update tx plan, Purpose of tx/functional activities, Safety issues, Transfer techniques Teaching Recipient: Patient Teaching Methods: Demonstration, Discussion Response to Teaching: Verbalize Understanding, Return Demonstration, Reinforcement Needed OT Short Term Goals Short Term Goals Time Frame: Feb 20, 2020 Upper body dressin Lower body dressin Putting on/taking off footwear: 6 OT Longterm Goals Printing Worker Supervisor Goals Time Frame: Feb 27, 2020 Eating (QC): 6 Oral Hygiene (QC): 6 Toileting Hygiene (QC): 6 Shower/Bathe Self (QC): 6 Upper Body Dressing (QC): 6 Lower Body Dressing (QC): 6 On/Off Footwear (QC): 6 Additional Goals: 1-Demonstrate ADL Tasks, 2-Verbalize Understanding, 3- ImproveStrength/Jean 1=Demonstrate adherence to instructed precautions during ADL tasks. 2=Patient will verbalize/demonstrate understanding of assistive devices/modifications for ADL. 3=Patient will improve strength/tolerance for activity to enable patient to perform ADL's. OT Education/Plan Problem List/Assessment Assessment: Decreased Activ Tolerance, Decreased UE Strength, Dependent Transfers, Impaired Cognition, Impaired Funct Balance, Impaired I ADL's, Impaired Self-Care Skills Discharge Recommendations Plan/Recommendations: Continue POC Therapy Discharge Recommendati: Home & Family Treatment Plan/Plan of Care Treatment,Training & Education: Yes Patient would benefit from OT for education, treatment and training to promote independence in ADL's, mobility, safety and/or upper extremity function for ADL's. Plan of Care: ADL Retraining, Caregiver Training, Concurrent Therapy, Functional Mobility, Group Exercise/Act as Ind, UE Funct Exercise/Act, UE Neuromus Re-Ed/Coord Treatment Duration: Feb 27, 2020 Frequency: At least 5 of 7 days/Wk (IRF) Estimated Hrs Per Day: 1.5 hours per day Rehab Potential: Fair Time/GCodes Start Time: 08:30 Stop Time: 09:45 Total Time Billed (hr/min): 75 Billed Treatment Time 1, ADL 4 (60), EX (15)= 75 FERMIN REID OTR Feb 14, 2020 10:15
--- NOTE | 2020-02-14 10:49 | Physical Therapy Daily Note ---
PT Daily Note-Current Subjective Pt in recliner upon arrival and agrees to PT. Mental Status Patient Orientation: Person, Place, Time, Situation Transfers SCALE: Activities may be completed with or without assistive devices. 0-Ckgykdicgd-piumabk completes the activity by him/herself with no assistance from a helper. 5-Set-up or Clean-up Assistance-helper sets up or cleans up; patient completes activity. [place] assists only prior to or following the activity. 4-Supervision or Touching Assistance-helper provides verbal cues and/or touching/steadying and/or contact guard assistance as patient completes activity. Assistance may be provided throughout the activity or intermittently. 3-Partial/Moderate Assistance-helper does LESS THAN HALF the effort. [place] lifts, holds or supports trunk or limbs, but provides less than half the effort. 2-Substantial/Maximal Assistance-helper does MORE THAN HALF the effort. [place] lifts or holds trunk or limbs and provides more than half the effort. 9-Ewqiodqqs-khloqp does ALL the effort. Patient does none of the effort to complete the activity. Or, the assistance of 2 or more helpers is required for the patient to complete the activity. If activity was not attempted, code reason: 7-Patient Refused. 9-Not Applicable-not attempted and the patient did not perform the activity before the current illness, exacerbation or injury. 10-Not Attempted due to Environmental Limitations-(lack of equipment, weather restraints, etc.). 88-Not Attempted due to Medical Conditions or Safety Concerns. Sit to Stand (QC): 3 Exercises Supine Ex: Quad Set, Heel Slides, Straight leg raise, Hip abd/add Supine Reps: 20 Seated Therapy Exercises: Biceps, Ankle pumps, Sit to stand (5 reps only), Shoulder Flex, Long arc quads, Chair press-ups, Shoulder Abd, Hip flexion, Hip abd/add, Glut set Seated Reps: 20 Treatments Pt in recliner and BP taken at beginning of tx and read 104/59. Pt performed seated exercises. Pt performed sit to stand and given a rest break. BP taken again reading 86/53. Pt put in reclining position and performed supine exercises. Pt BP taken a third time at end of tx reading 124/ 63. Pt left in recliner with all needs met, call light in hand. Assessment Current Status: Fair Progress Pt unable to perform standing activities d/t orthostatic hypotension. Pt requires frequent rest breaks. PT Short Term Goals Short Term Goals Time Frame: Feb 20, 2020 Roll Left & Right: 5 Sit to lyin Lying to sitting on side of be: 5 Sit to stand: 5 Chair/gkl-sa-fhlbo transfer: 5 Walk 10 feet: 5 Walk 50 feet with two turns: 5 Walk 150 feet: 5 PT Intermediate Goals Intermediate Goals PT Intermediate Goals Time Frame: Mar 05, 2020 Roll Left & Right (QC): 6 Sit to Lying (QC): 6 Lying-Sitting on Side/Bed(QC): 6 Sit to Stand (QC): 6 Chair/Mky-ny-Zaxpt Xfer(QC): 6 Toilet Transfer (QC): 6 Car Transfer (QC): 6 Does the Patient Walk: Yes Walk 10 feet (QC): 6 Walk 50ft with 2 Turns (QC): 6 Walk 150 ft (QC): 6 Walking 10ft on Uneven Surface: 6 1 Step (curb) (QC): 4 4 Steps (QC): 4 12 Steps (QC): 4 Picking up an Object (QC): 4 Wheel 50 feet with 2 turns (QC: 9 Wheel 150 feet: 9 PT Plan Problem List Problem List: Activity Tolerance, Functional Strength, Safety Treatment/Plan Treatment Plan: Continue Plan of Care Treatment Plan: Bed Mobility, Education, Functional Activity Jean, Functional Strength, Group Therapy, Gait, Safety, Therapeutic Exercise, Transfers Treatment Duration: Mar 05, 2020 Frequency: At least 5 of 7 days/Wk (IRF) Estimated Hrs Per Day: 1.5 hours per day Patient and/or Family Agrees t: Yes Safety Risks/Education Patient Education: Correct Positioning, Safety Issues Teaching Recipient: Patient Teaching Methods: Demonstration, Discussion Response to Teaching: Verbalize Understanding, Return Demonstration Time/GCodes Time In: 1000 Time Out: 1045 Total Billed Treatment Time: 45 Total Billed Treatment 1, Ex x2 (35m), FA (10m) LUIS FELIPE MCGRAW PTA Feb 14, 2020 10:49
--- NOTE | 2020-02-14 13:34 | Physical Therapy Daily Note ---
PT Daily Note-Current Subjective Pt in bed upon arrival with in room. Pt very unmotivated and asked to do PT later. Pt agrees to tx with encouragement from PT and . Mental Status Patient Orientation: Person, Place, Time, Situation Transfers SCALE: Activities may be completed with or without assistive devices. 3-Fzqckeexjv-ljsarjb completes the activity by him/herself with no assistance from a helper. 5-Set-up or Clean-up Assistance-helper sets up or cleans up; patient completes activity. [place] assists only prior to or following the activity. 4-Supervision or Touching Assistance-helper provides verbal cues and/or touching/steadying and/or contact guard assistance as patient completes activity. Assistance may be provided throughout the activity or intermittently. 3-Partial/Moderate Assistance-helper does LESS THAN HALF the effort. [place] lifts, holds or supports trunk or limbs, but provides less than half the effort. 2-Substantial/Maximal Assistance-helper does MORE THAN HALF the effort. [place] lifts or holds trunk or limbs and provides more than half the effort. 9-Ykcfgjjwq-irzrld does ALL the effort. Patient does none of the effort to com plete the activity. Or, the assistance of 2 or more helpers is required for the patient to complete the activity. If activity was not attempted, code reason: 7-Patient Refused. 9-Not Applicable-not attempted and the patient did not perform the activity before the current illness, exacerbation or injury. 10-Not Attempted due to Environmental Limitations-(lack of equipment, weather restraints, etc.). 88-Not Attempted due to Medical Conditions or Safety Concerns. Sit to Lying (QC): 6 Lying to Sitting/Side of Bed(Q: 6 Sit to Stand (QC): 5 Exercises Supine Ex: Ankle pumps, Rolling, Straight leg raise Supine Reps: 15 Seated Therapy Exercises: Long arc quads, Hip flexion Seated Reps: 15 Treatments Pt supine to sit and BP was taken reading 101/61. Pt performs seated exercises and BP taken again reading 112/56. Pt lays down and performs supine exercises. Pt supine to sit again with BP taken reading 108/61. Pt trialed standing, BP attempted to take 3 times reading as error. 4th try in stance BP read 82/50. Pt instructed to lay back down in bed at this time. Pt left in bed with all needs met, call light in hand. Assessment Current Status: Fair Progress Pt activity is limited d/t orthostatic hypotension in stance. Pt unmotivated and needs encouragement for tx. PT Short Term Goals Short Term Goals Time Frame: Feb 20, 2020 Roll Left & Right: 5 Sit to lyin Lying to sitting on side of be: 5 Sit to stand: 5 Chair/bns-wh-ioykx transfer: 5 Walk 10 feet: 5 Walk 50 feet with two turns: 5 Walk 150 feet: 5 PT Custodial Goals Brattice Builder Goals PT Brattice Builder Goals Time Frame: Mar 05, 2020 Roll Left & Right (QC): 6 Sit to Lying (QC): 6 Lying-Sitting on Side/Bed(QC): 6 Sit to Stand (QC): 6 Chair/Rxq-up-Ecmxw Xfer(QC): 6 Toilet Transfer (QC): 6 Car Transfer (QC): 6 Does the Patient Walk: Yes Walk 10 feet (QC): 6 Walk 50ft with 2 Turns (QC): 6 Walk 150 ft (QC): 6 Walking 10ft on Uneven Surface: 6 1 Step (curb) (QC): 4 4 Steps (QC): 4 12 Steps (QC): 4 Picking up an Object (QC): 4 Wheel 50 feet with 2 turns (QC: 9 Wheel 150 feet: 9 PT Plan Problem List Problem List: Activity Tolerance, Functional Strength, Safety, Balance, Gait, Transfer Treatment/Plan Treatment Plan: Continue Plan of Care Treatment Plan: Bed Mobility, Education, Functional Activity Jean, Functional Strength, Group Therapy, Gait, Safety, Therapeutic Exercise, Transfers Treatment Duration: Mar 05, 2020 Frequency: At least 5 of 7 days/Wk (IRF) Estimated Hrs Per Day: 1.5 hours per day Patient and/or Family Agrees t: Yes Safety Risks/Education Patient Education: Correct Positioning, Safety Issues Teaching Recipient: Patient, Family Teaching Methods: Demonstration, Discussion Response to Teaching: Verbalize Understanding, Return Demonstration Time/GCodes Time In: 1300 Time Out: 1330 Total Billed Treatment Time: 30 Total Billed Treatment 1, Ex (20m), FA (10m) LUIS FELIPE MCGRAW HORTICULTURALIST Feb 14, 2020 13:34
--- NOTE | 2020-02-14 14:28 | NUR ---
"RD ASSESSMENT PMHx: pneumonia; hypercholesterolemia; dementia; HTN; GERD; DM PT INTERACTION: Pt was awake and pleasant during consult for MST score. Note pt has dementia per chart review. Pt states current appetite is not good, and has been this way for about 2w. Note avg PO intake 25-50% x3meal, per chart review. Pt states following a regular diet at home, and has no issues with chewing/swallowing food. Pt states no recent issues with nausea, vomiting, constipation, or diarrhea. Note last BM was 02/13, and pt currently on bowel regimen of senna BID; and miralax BID, per chart review. Pt states no recent wt changes. Note recent 3# wt gain x3w, per chart review. Pt states current DM management is good. Note unable to determine recent HbA1c, per chart review. Upon visual assessment, pt appears to be adequately nourished with no visible signs of muscle/fat wasting, and a BMI of 28.2. While PO intake is low, given wt hx and visual assessment, pt does not meet criteria for malnutrition per ASPEN guidelines. ABNORMAL NUTRITION-RELATED LAB VALUES LOW: K 3.0; Ca 8.3; Pro 5.6; alb 2.9 HIGH: Est. kcal needs: 1825 kcal | 20 kcal/kg Est. Pro needs: 73 g Pro | 0.8 g Pro/kg PES STATEMENT: Inadequate oral intake (NI-2.1) related to loss of appetite as evidenced by pt interview | avg PO intake 25-50% x3meal INTERVENTION: Continue with current diet order of Regular diet. Pt may benefit from consistent CHO restriction if blood glucose levels become elevated. Pt may benefit from switching current nutrition supplementation from Ensure Enlive to Glucerna, if blood glucose levels become elevated. Glucerna provides 220 kcal and 10 g Pro per serving. Did not offer diet education on DM management at this time. Will attempt to offer when family is present, d/t pt's dementia. Will continue to follow and reassess as pt needs, intake, and status change. MONITOR/EVALUATE: PO Intake; Plan of Care; Hydration Status; Weight Status; Lab Values Haylee Acuña, MS, RD, LD"
--- NOTE | 2020-02-14 14:41 | NUR ---
CM/SS ADMISSION Patient was admitted to ARU 02/13/[address] [facility] for critical illness myopathy. He was inpatient at [facility] 01/11 to 01/28/20, then admitted into [facility] for [place]. He improved to be able to tolerate the ARU structure in order to continue to maximize stamina and performance with the goal of returning home with his . Additional comorbidities are, in part, advanced age, frequent falls, heart valve replacement, HTN, orthostatic hypotension, chronic kidney disease, T2DM, anemia. Patient is hard of hearing and Covid masking protocols are an interference to additional sensory for communication. Patient resides at home with his spouse, their children/families are very supportive and attentive as needed. PCP: Dr. Rosario Barrientos MD, [facility] PHARMACY: [facility], [facility] INSURANCE: Medicare, [employer] DME: Does not have FWW or shower chair for walk in shower. He was using a FWW at the SNF. Will follow with therapy staff regarding assessment for new assistive device needs relative to home performance and safety. They do have a ramp structure, built earlier this year for spouse Shyla after a serious fall with fracture and assistant womens volleyball coach disability regarding daily activities. BARRIERS TO DISCHARGE PLANNING: Patient's advanced age and overall maximum level of functioning relative to the home environment. Patient has continued on a positive continuum of improvement since 01/12/20. They do live in a two-story home and patient prefers using the upstairs bathroom for a walk-in shower. There is, however, a tub/shower on the first level. Anticipated DME would seem to be reasonably acquired. CONTACTS: Shyla Glez, [address] [place] [address] Arely Pereira, Daughter [address] [place], [place] [id number] Patient has a son, Bg Glez, in [place]. Patient and spouse understood the purpose and process of the weekly patient care conference and that patient's first review would be 02/20/20.
--- NOTE | 2020-02-14 15:44 | NUR ---
Initial visit made by JOSE Barney. Doing well and still needs to gain more strength.
[2020-02-14 18:14] VITALS: BP 125/68
[2020-02-14] MEDS: SIMvastatin 10 MG (ZOCOR) TAB PO SCH (21:26)
[2020-02-14] MEDS: TAMSULOSIN 0.4 MG (FLOMAX) CAP PO SCH (21:26)
[2020-02-14] MEDS: LACTOBACILLUS ACIDOPHILUS (PROBIOTIC) CAPSULE PO SCH (21:26)
[2020-02-15 06:00] VITALS: BP 117/50
[2020-02-15] MEDS: PIOGLITAZONE 30MG (ACTOS) TAB PO SCH (06:22)
[2020-02-15] MEDS: FERROUS SULF 325 MG (IRON) TAB PO SCH (06:22)
--- NOTE | 2020-02-15 06:47 | Progress Note ---
Subjective Subjective Date Seen by Provider: Feb 15, 2020 Time Seen by Provider: 08:50 Pt has had trouble with PT due to blood pressure dropping when he stands up from sitting making it hard to participate in therapy outside seated and supine exercises. He states he has been getting stronger and is able to walk a little using the walker. He does report weakness and some initial dizziness/light headiness when standing. He states he is ready to get home. Review of Systems General: Fatigue, Malaise HEENT: No Head Aches, No Visual Changes, No Sinus Congestion Pulmonary: No Dyspnea, No Cough Cardiovascular: No: Chest Pain, Palpitations, Edema Gastrointestinal: No: Nausea, Vomiting, Abdominal Pain, Diarrhea, Constipation Genitourinary: No Dysuria Musculoskeletal: No: leg pain Neurological: Weakness; No: Numbness All Other Systems Reviewed All Other Systems Reviewed: Yes Objective Exam Vital Signs Vital Signs - First Documented 02/13/20 10:57 Temp 36.4 Pulse 94 Resp 18 B/P (MAP) 104/58 Pulse Ox 95 O2 Delivery Room Air Capillary Refill : Less Than 3 Seconds General Appearance: No Apparent Distress, WD/WN, Chronically ill Eyes: Bilateral Eye Normal Inspection, Bilateral Eye PERRL HEENT: PERRL/EOMI, Normal ENT Inspection, Pharynx Normal, Other (HEARING AIDES IN PLACE BILATERALLY) Neck: Full Range of Motion, Normal Inspection, Supple Respiratory: Chest Non Tender, Lungs Clear, Normal Breath Sounds, No Accessory Muscle Use, No Respiratory Distress Cardiovascular: Regular Rate, Rhythm, No Edema, No Gallop, No JVD, Normal Peripheral Pulses, Systolic Murmur Gastrointestinal: Normal Bowel Sounds, No Organomegaly, No Pulsatile Mass, Non Tender, Soft Back: Normal Inspection, No CVA Tenderness, No Vertebral Tenderness Extremity: Normal Capillary Refill, Normal Inspection, Normal Range of Motion, Non Tender, No Calf Tenderness, No Pedal Edema Neurologic/Psychiatric: Alert, Oriented x3, Normal Mood/Affect, vice president of compliance II-XII Norm as Tested, Abnormal Gait, Motor Weakness (generalized legs greater loss than arms 4/5) Skin: Normal Color, Warm/Dry Lymphatic: No Adenopathy Assessment/Plan Assessment/Plan Assessment and Plan DEBILITY -CONTINUE OT/PT/SPEECH -SMALL IMPROVEMENTS WITH PROGRESS LIMITED BY ORTHOSTATIC HYPOTENSION -MONITOR DELIRIUM -IMPROVING ANEMIA -MONITOR HGB/HCT -CONTINUE ORAL IRON SUPPLEMENTATION TYPE 2 DIABETES MELLITUS -CONTINUE PIOGLITAZONE 45MG DAILY -MONITOR BLOOD GLUCOSE HYPERTENSION -MONITOR ORTHOSTATIC HYPOTENSION -ENCOURAGE FLUIDS, SITTING FOR SEVERAL MINUTES BEFORE STANDING -CONTINUE STAND WITH ASSIST -MONITOR Problems: (1) Debility (2) Delirium (3) Advanced age (4) Falls frequently (5) Heart valve replaced (6) Hypertension (7) Orthostatic hypotension (8) Acute kidney injury superimposed on chronic kidney disease (9) T2DM (type 2 diabetes mellitus) Qualifiers: Qualified Codes: E11.9 - Type 2 diabetes mellitus without complications (10) Anemia Qualifiers: Qualified Codes: D50.8 - Other iron deficiency anemias (11) HTN (hypertension) Clinical Quality Measures DVT/VTE Risk/Contraindication: Risk Factor Score Per Nursin RFS Level Per Nursing on Admit: 2=Moderate Supervisory-Addendum Brief Verification & Attestation Participated in pt care: history, MDM, physical Personally performed: exam, history, MDM, supervision of care Care discussed with: Medical Student Procedures: n/a Results interpretation: Verified all documentation JAKE HAS MADE TREMENDOUS IMPROVEMENTS IN THE PAST FEW WEEKS AT THE [facility]. HIS STRENGTH, COGNITION, AND OVERALL HEALTH OUTLOOK HAVE ALL IMPROVED DRASTICALLY SINCE HIS LAST HOSPITAL DISCHARGE. THE STAY AT THE [facility] HAS BEEN OF GREAT BENEFIT AND I BELIEVE THAT THIS HOSPITALIZATION FOR INPATIENT REHAB WILL GIVE US THE TIME AND THERAPY NEEDED TO ALLOW FOR JAKE TO HAVE A SUCCESSFUL TRANSITION TO HOME. DEBILITY FROM CRITICAL ILLNESS MYOPATHY - CONTINUE WITH THERAPY PT HAS HAD SIGNIFICANT IMPROVEMENT IN HIS STRENGTH BUT IS NOT YET SAFE ENOUGH FOR DISCHARGE BACK TO HOME. DELIRIUM - RESOLVED -CONTINUE TO MONITOR SYMPTOMS CLOSELY DUE TO ENVIRONMENTAL CHANGE POSSIBLY CAUSING INCREASED RISK OF RESUMPTION OF DELIRIUM ORTHOSTATIC HYPOTENSION - INCREASE FLUID INTAKE ORALLY - DEPENDING ON SYMPTOMS - MAY NEED TO CONSIDER FLUDROCORTISONE IF DRAMATIC HYPOTENSION AND SYMPTOMS - HOWEVER PRIOR TO INITIATING FLUDROCORTISONE, WOULD CONSULT CARDIOLOGY DM - TYPE II - NON INSULIN DEPENDENT - RESTARTED ACTOS, NEED TO CHECK FSBS AND MAY NEED TO DECREASE ACTOS DUE TO WEIGHT LOSS AND DECREASED APPETITE IRON DEFICIENCY ANEMIA -REPEAT IRON DIRECTOR WEIGHTS AND MEASURES LABS INTERMITTENTLY - CONSIDER RESTARTING ORAL IRON DEPENDING ON PANEL HYPOKALEMIA - ORAL POTASSIUM - CHECK LABS FOR LYTES AND MAG TOMORROW WHEN DRAWING IRON PANEL ADVANCED AGE FREQUENT FALLS HX OF VALVE REPLACEMENT CASIMIRO MITCHELL Feb 15, 2020 06:47 NATHANIEL OLIVA MD Feb 15, 2020 11:14
[2020-02-15] MEDS: PANTOPRAZOLE 20 MG TABLET (PROTONIX) PO SCH (08:33)
[2020-02-15] MEDS: ASPIRIN E.C. 81 MG (ECOTRIN) TAB PO SCH ×2 (08:33→20:11)
[2020-02-15] MEDS: VITAMIN E 180 MG (400 UNITS) CAP PO SCH (08:33)
[2020-02-15] MEDS: SENNA W/DOCUSATE (SENOKOT S) TABLET PO SCH ×2 (08:33→20:11)
[2020-02-15] MEDS: KCL 20 MEQ TAB (K-DUR) PO SCH ×2 (08:57→18:01)
[2020-02-15] MEDS: polyethylene glycoL POWDER 17 GM (MIRALAX) PACK PO SCH ×2 (08:57→19:49)
[2020-02-15] MEDS: DICLOFENAC 1% GEL 100 GM (VOLTAREN) TUBE TP SCH ×4 (08:58→19:49)
--- NOTE | 2020-02-15 09:12 | Physical Therapy Daily Note ---
PT Daily Note-Current Subjective Pt in bed upon arrival, pt agrees to PT with encouragement. Pain Location: No Pain Reported Mental Status Patient Orientation: Person, Place, Time, Situation Transfers SCALE: Activities may be completed with or without assistive devices. 6-Ohwibgxpaf-dnnhavo completes the activity by him/herself with no assistance from a helper. 5-Set-up or Clean-up Assistance-helper sets up or cleans up; patient completes activity. [place] assists only prior to or following the activity. 4-Supervision or Touching Assistance-helper provides verbal cues and/or touching/steadying and/or contact guard assistance as patient completes activity. Assistance may be provided throughout the activity or intermittently. 3-Partial/Moderate Assistance-helper does LESS THAN HALF the effort. [place] lifts, holds or supports trunk or limbs, but provides less than half the effort. 2-Substantial/Maximal Assistance-helper does MORE THAN HALF the effort. [place] lifts or holds trunk or limbs and provides more than half the effort. 6-Kshlejwqs-eutklf does ALL the effort. Patient does none of the effort to comp lete the activity. Or, the assistance of 2 or more helpers is required for the patient to complete the activity. If activity was not attempted, code reason: 7-Patient Refused. 9-Not Applicable-not attempted and the patient did not perform the activity before the current illness, exacerbation or injury. 10-Not Attempted due to Environmental Limitations-(lack of equipment, weather restraints, etc.). 88-Not Attempted due to Medical Conditions or Safety Concerns. Roll Left & Right (QC): 5 Sit to Lying (QC): 5 Lying to Sitting/Side of Bed(Q: 5 Sit to Stand (QC): 4 Chair/Pfs-zi-Dmykf Xfer(QC): 4 Toilet Transfer (QC): 4 Wheelchair Training Does the Pt Use a Wheelchair?: Yes Wheel 50 ft with 2 turns (QC): 6 Wheel 150 ft (QC): 6 Type of Wheelchair: Manual Pt propelled WC from room around unit approx 400' requiring frequent rest breaks. Pt propelled between tables in chairs in smaller spaces. Exercises Supine Ex: Bridging, Ankle pumps, Quad Set, Rolling (2), Glut sets, Heel Slides, Short Arc Quads, Scooting, Straight leg raise, Hip abd/add Supine Reps: 15 Seated Therapy Exercises: Hip flexion Seated Reps: 15 Treatments Pt in bed upon arrival and BP was taken reading 111/62. Pt performs supine exercises. Pt supine to sit and BP was taken at this time, reading 115/61. Pt performs seated exercises followed by standing. Pt BP taken in stance reading 92/50. Pt instructed to sit on EOB. After short rest break, pt BP taken reading at 113/61. Pt transfers to , BP taken 101/60. Pt takes short rest break then transfers to toilet. Pt uses restroom CGA, and returns to as BP was taken again reading 120/62. Pt performs WC mobility around unit. Pt returns to room and BP taken a final time reading 114/64. Pt left in recliner with all needs met, call light in hand. Assessment Current Status: Fair Progress Pt activity is limited d/t orthostatic hypotension in standing. Pt unmotivated requiring encouragement for activity. PT Short Term Goals Short Term Goals Time Frame: Feb 20, 2020 Roll Left & Right: 5 Sit to lyin Lying to sitting on side of be: 5 Sit to stand: 5 Chair/rat-kt-rqkgr transfer: 5 Walk 10 feet: 5 Walk 50 feet with two turns: 5 Walk 150 feet: 5 PT Group Home Goals Wedding Cake Designer Goals PT Group Home Goals Time Frame: Mar 05, 2020 Roll Left & Right (QC): 6 Sit to Lying (QC): 6 Lying-Sitting on Side/Bed(QC): 6 Sit to Stand (QC): 6 Chair/Wqa-gd-Gnloh Xfer(QC): 6 Toilet Transfer (QC): 6 Car Transfer (QC): 6 Does the Patient Walk: Yes Walk 10 feet (QC): 6 Walk 50ft with 2 Turns (QC): 6 Walk 150 ft (QC): 6 Walking 10ft on Uneven Surface: 6 1 Step (curb) (QC): 4 4 Steps (QC): 4 12 Steps (QC): 4 Picking up an Object (QC): 4 Wheel 50 feet with 2 turns (QC: 9 Wheel 150 feet: 9 PT Plan Problem List Problem List: Activity Tolerance, Functional Strength, Safety, Balance, Gait, Transfer Treatment/Plan Treatment Plan: Continue Plan of Care Treatment Plan: Bed Mobility, Education, Functional Activity Jean, Functional Strength, Group Therapy, Gait, Safety, Therapeutic Exercise, Transfers Treatment Duration: Mar 05, 2020 Frequency: At least 5 of 7 days/Wk (IRF) Estimated Hrs Per Day: 1.5 hours per day Patient and/or Family Agrees t: Yes Safety Risks/Education Patient Education: Transfer Techniques, Correct Positioning, Safety Issues Teaching Recipient: Patient Teaching Methods: Demonstration, Discussion Response to Teaching: Verbalize Understanding, Return Demonstration Time/GCodes Time In: 815 Time Out: 915 Total Billed Treatment Time: 60 Total Billed Treatment 1, Ex x2 (30m), FA (10m), [facility] (20m) EVELIA VALERIO CHAIRMAN CEO Feb 15, 2020 09:12
--- NOTE | 2020-02-15 09:12 | PM&R Progress Note ---
Subjective HPI/CC On Admission Date Seen by Provider: Feb 15, 2020 Time Seen by Provider: 09:15 Subjective/Events-last exam Pt doing pretty well Potassium 3.0 is supplemented by PCP 20meq PO BID Very debilitated and chronically ill appearance with paleness but appears to be doing much better Cognition noted at 2230 SLUMS score Bowels moved today Checked meds and labs Conferred with RN Reviewed therapy notes Review of Systems General: Fatigue, Malaise Neurological: Weakness Objective Exam Vital Signs Vital Signs Date Time Temp Pulse Resp B/P (MAP) Pulse Ox O2 Delivery O2 Flow Rate FiO2 02/15/20 09:00 Room Air 02/15/20 06:00 36.0 93 22 117/50 (72) 93 Capillary Refill : Less Than 3 Seconds General Appearance: No Apparent Distress, WD/WN, Chronically ill HEENT: PERRL/EOMI, Normal ENT Inspection, Pharynx Normal Neck: Full Range of Motion, Normal Inspection, Supple Respiratory: Chest Non Tender, Lungs Clear, Normal Breath Sounds, No Accessory Muscle Use, No Respiratory Distress Cardiovascular: Regular Rate, Rhythm, No Edema, No Gallop, No JVD, Normal Peripheral Pulses, Systolic Murmur Gastrointestinal: Normal Bowel Sounds, No Organomegaly, No Pulsatile Mass, Non Tender, Soft Back: Normal Inspection, No CVA Tenderness, No Vertebral Tenderness Extremity: Normal Capillary Refill, Normal Inspection, Normal Range of Motion, Non Tender, No Calf Tenderness, No Pedal Edema Neurologic/Psychiatric: Alert, Oriented x3, Normal Mood/Affect, product safety head II-XII Norm as Tested, Abnormal Gait, Motor Weakness (generalized legs greater loss than arms 4/5) Skin: Normal Color, Warm/Dry Lymphatic: No Adenopathy Results/Procedures Lab Patient resulted labs reviewed. FIM Transfers Therapy Code Descriptions/Definitions Functional [place] Measure: 0=Not Assessed/NA 4=Minimal Assistance 1=Total Assistance 5=Supervision or Setup 2=Maximal Assistance 6=Modified [place] 3=Moderate Assistance 7=Complete IndependenceSCALE: Activities may be completed with or without assistive devices. 9-Cwicbdchzz-iraqajj completes the activity by him/herself with no assistance f rom a helper. 5-Set-up or Clean-up Assistance-helper sets up or cleans up; patient completes activity. [place] assists only prior to or following the activity. 4-Supervision or Touching Assistance-helper provides verbal cues and/or touching/steadying and/or contact guard assistance as patient completes activity. Assistance may be provided throughout the activity or intermittently. 3-Partial/Moderate Assistance-helper does LESS THAN HALF the effort. [place] lifts, holds or supports trunk or limbs, but provides less than half the effort. 2-Substantial/Maximal Assistance-helper does MORE THAN HALF the effort. [place] lifts or holds trunk or limbs and provides more than half the effort. 9-Iqhwmorqb-vfchly does ALL the effort. Patient does none of the effort to complete the activity. Or, the assistance of 2 or more helpers is required for the patient to complete the activity. If activity was not attempted, code reason: 7-Patient Refused. 9-Not Applicable-not attempted and the patient did not perform the activity before the current illness, exacerbation or injury. 10-Not Attempted due to Environmental Limitations-(lack of equipment, weather restraints, etc.). 88-Not Attempted due to Medical Conditions or Safety Concerns. Roll Left to Right (QC): 6 Sit to Lying (QC): 6 Sit to Stand (QC): 5 Chair/Vfn-bs-Ajfhx Xfer(QC): 4 Car Transfer (QC): 4 Gait Training Does the Patient Walk?: Yes Walk 10 feet (QC): 4 Walk 50 ft with 2 Turns(QC): 4 Walk 150 ft (QC): 4 Walking 10ft/uneven surface-QC: 4 Gait Assistive Device: FWW Wheelchair Training Does the Pt Use a Wheelchair?: Yes Wheel 50 ft with 2 turns (QC): 9 Wheel 150 ft (QC): 9 Stair Training #of Steps: 1 1 Step (curb) (QC): 4 4 Steps (QC): 88 12 Steps (QC): 88 Balance Picking up an Object (QC): 88 ADL-Treatment Eating (QC): 6 Oral Hygiene (QC): 7 (denies at this time, states willing to rinse mouth out "later") Bathing Location: L Arm, R Arm, L Upper Leg, R Upper Leg, L Lower Leg (including foot), R Lower Leg (including foot), Chest, Abdomen, Buttocks, Perineal Area Shower/Bathe Self (QC): 4 (SBA during shower transfer with cues for hand placementSBA during stance in shower, cues for use of grab bars for safety. ) Upper Body Dressing (QC): 5 (s/u shirt.) Lower Body Dressing (QC): 3 (cues for safety during doffing. min A due to fatigue and SOB post-shower. Requires assist threading over one leg during brief and pant donning. ) On/Off Footwear (QC): 6 (Pt requires max A in shower as pt states fatigue and SOB. Pt recovers, able to complete footwear with IND. Doffs/ dons. ) Toileting Hygiene (QC): 4 (SBA during showering/ bottom hygiene.) Toilet Transfer (QC): 4 (cues for hand/ body placement) Assessment/Plan Assessment and Plan Assess & Plan/Chief Complaint Assessment: Severe debility Falls Dementia? on SLUMS by ST Valve replacement status HTN Orthostatic hypotension CRI Anemia of kidney disease Hypokalemia Plan: Home meds addressed per PCP Fall risk Monitor BP closely Pain control 02/14/20: Replaced Potassium per Dr. Barrientos Maintain therapies in order to discharge home with Patient appears to be very chronically ill and debilitated prognosis guarded senior care 02/15/20: Doing well Cognitive deficit noted at [facility] Labs stable Potassium tolerated (1) Debility Status: Acute (2) Delirium Status: Resolved Resolution Date/Time: 02/14/20 @ 11:06 (3) Advanced age Status: Chronic (4) Falls frequently Status: Chronic (5) Heart valve replaced Status: Chronic (6) Hypertension (7) Orthostatic hypotension Status: Chronic (8) Acute kidney injury superimposed on chronic kidney disease Status: Acute (9) T2DM (type 2 diabetes mellitus) Status: Chronic Qualifiers: Diabetes mellitus bottom precipitator operator insulin use: without bottom precipitator operator use Diabetes mellitus complication status: without complication Qualified Codes: E11.9 - Type 2 diabetes mellitus without complications (10) Anemia Status: Chronic Qualifiers: Anemia type: iron deficiency Iron deficiency anemia type: other iron deficiency Qualified Codes: D50.8 - Other iron deficiency anemias (11) HTN (hypertension) SANJANA KOWALSKI DO Feb 15, 2020 09:12
--- NOTE | 2020-02-15 10:12 | Occupational Ther Daily Note ---
OT Current Status-Daily Note Subjective Pt seen in recliner, alert/ oriented. Pt denies pain, reluctantly agreeable to therapy. Pt requires reminders through session on purpose of therapy and home goals. Mental Status/Objective Patient Orientation: Person, Place, Situation ADL-Treatment Therapy Code Descriptions/Definitions Functional [place] Measure: 0=Not Assessed/NA 4=Minimal Assistance 1=Total Assistance 5=Supervision or Setup 2=Maximal Assistance 6=Modified [place] 3=Moderate Assistance 7=Complete IndependenceSCALE: Activities may be completed with or without assistive devices. 2-Tzatjzqpmt-kqfdpyq completes the activity by him/herself with no assistance from a helper. 5-Set-up or Clean-up Assistance-helper sets up or cleans up; patient completes activity. [place] assists only prior to or following the activity. 4-Supervision or Touching Assistance-helper provides verbal cues and/or touching/steadying and/or contact guard assistance as patient completes activity. Assistance may be provided throughout the activity or intermittently. 3-Partial/Moderate Assistance-helper does LESS THAN HALF the effort. [place] lifts, holds or supports trunk or limbs, but provides less than half the effort. 2-Substantial/Maximal Assistance-helper does MORE THAN HALF the effort. [place] lifts or holds trunk or limbs and provides more than half the effort. 7-Envqccdyu-xrorzn does ALL the effort. Patient does none of the effort to complete the activity. Or, the assistance of 2 or more helpers is required for the patient to complete the activity. If activity was not attempted, code reason: 7-Patient Refused. 9-Not Applicable-not attempted and the patient did not perform the activity before the current illness, exacerbation or injury. 10-Not Attempted due to Environmental Limitations-(lack of equipment, weather restraints, etc.). 88-Not Attempted due to Medical Conditions or Safety Concerns. Eating (QC): 6 (drinking/ pouring pop into cups.) Oral Hygiene (QC): 7 Shower/Bathe Self (QC): 7 (denies shower, though agreeable to bottom/ marvin hygiene prior to brief change.) Upper Body Dressing (QC): 5 (s/u) Lower Body Dressing (QC): 4 (CGA in stance (pt doffs off of feet in standing), SBA during donning over BLE in sit and completes pulling over hips with SBA.) On/Off Footwear: 6 (IND with slippers on chair. ) Toileting Hygiene (QC): 4 (CGA in stance for bottom/ marvin hygiene. ) Toilet Transfer (QC): 4 (CGA, use of walker.) Other Treatment Pt requires cues and reminders of goals, pt educated on schedule. Pt states he desires nap, pt educated on time between OT/ GRAIN ELEVATOR CLERK designated for free time/ napping. Pt nods in understanding. Pt denies showering/ changing clothes/ shaving. Pt states, "Who put you in charge?" Pt educated that he is in charge of treatment, and as long as his option is therapeutic we will complete activities he desires. After redirection pt states he desires to shave/ change clothes. Pt ambulates to chair in front of mirror- completes shaving with s/u. Pt able to maintain attention to task throughout. Changes/ washes bottom in front of sink, skilled cues for energy conservation during task and safety. Pt doffs LB dressing in stance, educated on benefits/ safety sitting to doff over feet. Pt sits post-LB dressing donning, leaning over (placing elbows on knees). When asked how pt is feeling, pt replies, "Fine." pt then states he just "needs to bend over," pt asked if lightheaded/ tired/ in pain. Pt states, "Tired." Pt returns to tasks after cues. Pt returns to recliner with CGA and use of walker. Pt sits in recliner, BP readin/56 immediately after sit. Assessed after 3 min of sittin/ 71. Then in standing post-exercises (~5 min standing): 114/73, pt states immediate need to sit, stating he is "very tired," denying other symptoms. Pt agrees to continued ther ex edge of chair in standing, use of 4WW and theraband for ther ex for ~2 min in standing with skilled cues for purpose and resistance level: BP reassessed: 82/60. Pt returns to sit, no c/o lightheadedness, nursing aware of BP in standing. Pt requests back to bed EOS, returns with CGA, all needs met, bed alarm on, call light in reach. Pt is encouraged to continue drinking fluids by nursing/ OT. Education OT Patient Education: Energy conservation (LB dressing tasks. ), Exercise program, Home exercise program, Modified ADL techniques, Progress toward Goal/Update tx plan, Purpose of tx/functional activities, Safety issues, Transfer techniques Teaching Recipient: Patient Teaching Methods: Demonstration, Discussion Response to Teaching: Verbalize Understanding, Return Demonstration OT Short Term Goals Short Term Goals Time Frame: Feb 20, 2020 Upper body dressin Lower body dressin Putting on/taking off footwear: 6 OT Deputy Coroner Investigator Goals Deputy Coroner Investigator Goals Time Frame: Feb 27, 2020 Eating (QC): 6 Oral Hygiene (QC): 6 Toileting Hygiene (QC): 6 Shower/Bathe Self (QC): 6 Upper Body Dressing (QC): 6 Lower Body Dressing (QC): 6 On/Off Footwear (QC): 6 Additional Goals: 1-Demonstrate ADL Tasks, 2-Verbalize Understanding, 3-Im proveStrength/Jean 1=Demonstrate adherence to instructed precautions during ADL tasks. 2=Patient will verbalize/demonstrate understanding of assistive devices/modifications for ADL. 3=Patient will improve strength/tolerance for activity to enable patient to perform ADL's. OT Education/Plan Problem List/Assessment Assessment: Decreased Activ Tolerance, Decreased UE Strength, Dependent Transfers, Impaired Funct Balance, Impaired I ADL's, Impaired Self-Care Skills Discharge Recommendations Plan/Recommendations: Continue POC Therapy Discharge Recommendati: Intermittent Supervision, Home & Family Treatment Plan/Plan of Care Treatment,Training & Education: Yes Patient would benefit from OT for education, treatment and training to promote independence in ADL's, mobility, safety and/or upper extremity function for ADL's. Plan of Care: ADL Retraining, Caregiver Training, Concurrent Therapy, Functional Mobility, Group Exercise/Act as Ind, UE Funct Exercise/Act, UE Neuromus Re-Ed/Coord Treatment Duration: Feb 27, 2020 Frequency: At least 5 of 7 days/Wk (IRF) Estimated Hrs Per Day: 1.5 hours per day Rehab Potential: Fair Time/GCodes Start Time: 09:15 Stop Time: 10:05 Total Time Billed (hr/min): 50 Billed Treatment Time [id number]: 1, ADL 2 (30), EX (20) FERMIN REID OTR Feb 15, 2020 10:12
--- NOTE | 2020-02-15 11:30 | Speech Therapy Daily Note ---
Speech Daily Progress Note Subjective Date Seen by Provider: Feb 15, 2020 Time Seen by Provider: 00:30 Patient was resting in his bed when I entered his room. Patient participated with ST for session. Objective Patient completed a series of "what's wrong with this picture?" at 90% with minimal cues. Assessment Assessment Current Status: Good Progress Treatment Plan Continue Plan of Care Speech Short Term Goals Short Term Goals Short Term Goals 1) Patient will complete memory tasks related to his daily needs at 90% or greater with minimal cuing. 2) Patient will complete safety awareness tasks related to his daily needs at 90% or greater with minimal cuing. 3) Patient will complete problem solving tasks related to his daily needs at 90% or greater with minimal cuing. Speech Detention Goals Instrument Setter Goals Patient will improve cognitive-communication necessary for safety and daily living tasks with minimal assist. Speech-Plan Patient/Family Goals Patient/Family Goals: Patient plans on returning to his home upon discharge from rehab. Treatment Plan Speech Therapy Treatment Plan: Continue Plan of Care Treatment Duration: Feb 22, 2020 Frequency: 5 times per week Estimated Hrs Per Day: .5 hour per day Rehab Potential: Fair Barriers to Learning: Patient's recent medical status Pt/Family Agrees to Plan: Yes Safety Risks/Education Teaching Recipient: Patient Teaching Methods: Demonstration, Discussion Response to Teaching: Verbalize Understanding, Return Demonstration Education Topics Provided: Continued safety within his room and communication of wants/needs Time Speech Therapy Time In: 11:00 Speech Therapy Time Out: 11:30 Total Billed Time: 1130 Billed Treatment Time 1, ARIADNE Russo Feb 15, 2020 11:30
--- NOTE | 2020-02-15 13:02 | Occupational Ther Daily Note ---
OT Current Status-Daily Note Subjective Pt up in chair finishing lunch when OT entered room. also in room. No c/o pain. Mental Status/Objective Patient Orientation: Person, Place ADL-Treatment Therapy Code Descriptions/Definitions Functional [place] Measure: 0=Not Assessed/NA 4=Minimal Assistance 1=Total Assistance 5=Supervision or Setup 2=Maximal Assistance 6=Modified [place] 3=Moderate Assistance 7=Complete IndependenceSCALE: Activities may be completed with or without assistive devices. 3-Hqqbzmcdwe-zntzvjg completes the activity by him/herself with no assistance f rom a helper. 5-Set-up or Clean-up Assistance-helper sets up or cleans up; patient completes activity. [place] assists only prior to or following the activity. 4-Supervision or Touching Assistance-helper provides verbal cues and/or touching/steadying and/or contact guard assistance as patient completes activity. Assistance may be provided throughout the activity or intermittently. 3-Partial/Moderate Assistance-helper does LESS THAN HALF the effort. [place] lifts, holds or supports trunk or limbs, but provides less than half the effort. 2-Substantial/Maximal Assistance-helper does MORE THAN HALF the effort. [place] lifts or holds trunk or limbs and provides more than half the effort. 6-Jbudywdfs-mznmxo does ALL the effort. Patient does none of the effort to complete the activity. Or, the assistance of 2 or more helpers is required for the patient to complete the activity. If activity was not attempted, code reason: 7-Patient Refused. 9-Not Applicable-not attempted and the patient did not perform the activity before the current illness, exacerbation or injury. 10-Not Attempted due to Environmental Limitations-(lack of equipment, weather restraints, etc.). 88-Not Attempted due to Medical Conditions or Safety Concerns. On/Off Footwear: 5 Pt. handed clean socks to put on. Pt. doffed socks independently and donned new pair after handed to him. He declined LB dressing. Pt. completed 3 sets of 12 reps of 6 shoulder exercises using yellow (light resistance) theraband while standing in walker to work on standing balance with a sitting rest break after each set. Sit to stand, SBA. Skilled instruction given for correct technique and modifications. No LOB noted. in room, pt. in chair when therapy left room. All needs met. Education OT Patient Education: Correct positioning, Exercise program, Home exercise program, Progress toward Goal/Update tx plan, Purpose of tx/functional activities, Reviewed precautions, Rehab process Teaching Recipient: Patient, Family Teaching Methods: Demonstration, Discussion Response to Teaching: Verbalize Understanding, Return Demonstration OT Short Term Goals Short Term Goals Time Frame: Feb 20, 2020 Upper body dressin Lower body dressin Putting on/taking off footwear: 6 OT Correction Goals Correction Goals Time Frame: Feb 27, 2020 Eating (QC): 6 Oral Hygiene (QC): 6 Toileting Hygiene (QC): 6 Shower/Bathe Self (QC): 6 Upper Body Dressing (QC): 6 Lower Body Dressing (QC): 6 On/Off Footwear (QC): 6 Additional Goals: 1-Demonstrate ADL Tasks, 2-Verbalize Understanding, 3- ImproveStrength/Jean 1=Demonstrate adherence to instructed precautions during ADL tasks. 2=Patient will verbalize/demonstrate understanding of assistive devices/modifications for ADL. 3=Patient will improve strength/tolerance for activity to enable patient to perform ADL's. OT Education/Plan Problem List/Assessment Assessment: Decreased Activ Tolerance, Decreased UE Strength, Impaired Funct Balance, Impaired I ADL's, Impaired Self-Care Skills Discharge Recommendations Plan/Recommendations: Continue POC Treatment Plan/Plan of Care Treatment,Training & Education: Yes Patient would benefit from OT for education, treatment and training to promote independence in ADL's, mobility, safety and/or upper extremity function for ADL's. Plan of Care: ADL Retraining, Caregiver Training, Concurrent Therapy, Functional Mobility, Group Exercise/Act as Ind, UE Funct Exercise/Act, UE Neuromus Re-Ed/Coord Treatment Duration: Feb 27, 2020 Frequency: At least 5 of 7 days/Wk (IRF) Estimated Hrs Per Day: 1.5 hours per day Rehab Potential: Fair Time/GCodes Start Time: 12:30 Stop Time: 13:00 Total Time Billed (hr/min): 30 Billed Treatment Time 1, ADL (15 minutes), EX (15 minutes) VANITA ELLINGTON Feb 15, 2020 13:02
--- NOTE | 2020-02-15 13:12 | Physical Therapy Daily Note ---
PT Daily Note-Current Subjective Reluctant but agrees to Rx with encouragement Pain Location: No Pain Reported Mental Status Patient Orientation: Person, Place Transfers SCALE: Activities may be completed with or without assistive devices. 8-Rpsqozlyju-atpdmws completes the activity by him/herself with no assistance from a helper. 5-Set-up or Clean-up Assistance-helper sets up or cleans up; patient completes activity. [place] assists only prior to or following the activity. 4-Supervision or Touching Assistance-helper provides verbal cues and/or touching/steadying and/or contact guard assistance as patient completes activity. Assistance may be provided throughout the activity or intermittently. 3-Partial/Moderate Assistance-helper does LESS THAN HALF the effort. [place] lifts, holds or supports trunk or limbs, but provides less than half the effort. 2-Substantial/Maximal Assistance-helper does MORE THAN HALF the effort. [place] lifts or holds trunk or limbs and provides more than half the effort. 9-Blwztrleb-cdjyor does ALL the effort. Patient does none of the effort to complete the activity. Or, the assistance of 2 or more helpers is required for the patient to complete the activity. If activity was not attempted, code reason: 7-Patient Refused. 9-Not Applicable-not attempted and the patient did not perform the activity before the current illness, exacerbation or injury. 10-Not Attempted due to Environmental Limitations-(lack of equipment, weather restraints, etc.). 88-Not Attempted due to Medical Conditions or Safety Concerns. Lying to Sitting/Side of Bed(Q: 5 Sit to Stand (QC): 4 Chair/Hco-dx-Sfgcv Xfer(QC): 4 Gait Training Gait Assistive Device: FWW 6ft CGA no LOB Exercises Supine Ex: Bridging, Ankle pumps, Quad Set, Rolling, Glut sets, Heel Slides, Short Arc Quads, Scooting, Straight leg raise, Hip abd/add Supine Reps: 12 Treatments up in chair after Rx, rodriguez at hand Assessment Current Status: Good Progress PT Short Term Goals Short Term Goals Time Frame: Feb 20, 2020 Roll Left & Right: 5 Sit to lyin Lying to sitting on side of be: 5 Sit to stand: 5 Chair/wtd-oz-asrgd transfer: 5 Walk 10 feet: 5 Walk 50 feet with two turns: 5 Walk 150 feet: 5 PT Senior Living Goals Burn Table Operator Goals PT Burn Table Operator Goals Time Frame: Mar 05, 2020 Roll Left & Right (QC): 6 Sit to Lying (QC): 6 Lying-Sitting on Side/Bed(QC): 6 Sit to Stand (QC): 6 Chair/Kzp-bi-Lydok Xfer(QC): 6 Toilet Transfer (QC): 6 Car Transfer (QC): 6 Does the Patient Walk: Yes Walk 10 feet (QC): 6 Walk 50ft with 2 Turns (QC): 6 Walk 150 ft (QC): 6 Walking 10ft on Uneven Surface: 6 1 Step (curb) (QC): 4 4 Steps (QC): 4 12 Steps (QC): 4 Picking up an Object (QC): 4 Wheel 50 feet with 2 turns (QC: 9 Wheel 150 feet: 9 PT Plan Treatment/Plan Treatment Plan: Continue Plan of Care Treatment Plan: Bed Mobility, Education, Functional Activity Jean, Functional Strength, Group Therapy, Gait, Safety, Therapeutic Exercise, Transfers Treatment Duration: Mar 05, 2020 Frequency: At least 5 of 7 days/Wk (IRF) Estimated Hrs Per Day: 1.5 hours per day Patient and/or Family Agrees t: Yes Safety Risks/Education Patient Education: Transfer Techniques Time/GCodes Time In: 1135 Time Out: 1150 Total Billed Treatment Time: 15 Total Billed Treatment 1,EX15m EVELIA VALERIO SENIOR MATERIALS SCIENTIST Feb 15, 2020 13:12
--- NOTE | 2020-02-15 15:30 | NUR ---
VISITING WITH PATIENT. BRINGS IN STRAWBERRY SHORTCAKE FOR PATIENT TO CONSUME. 100% CONSUMED WITH 1 CAN COKE. TOLERATES WELL.
[2020-02-15 18:00] VITALS: BP 124/60
[2020-02-15] MEDS: LACTOBACILLUS ACIDOPHILUS (PROBIOTIC) CAPSULE PO SCH (20:11)
[2020-02-15] MEDS: SIMvastatin 10 MG (ZOCOR) TAB PO SCH (20:11)
[2020-02-15] MEDS: TAMSULOSIN 0.4 MG (FLOMAX) CAP PO SCH (20:11)
[2020-02-16 04:51] LABS: BASOPHILS % (AUTO) 0 % (0-10); EOSINOPHILS # (AUTO) 0.1 10^3/uL (0.0-0.3); EOSINOPHILS % (AUTO) 1 % (0-10); HEMATOCRIT 34 % (40-54); HEMOGLOBIN 10.9 G/DL (13.3-17.7); LYMPHOCYTES # (AUTO) 0.9 X 10^3 (1.0-4.0); LYMPHOCYTES % (AUTO) 17 % (12-44); MEAN CORPUSCULAR HEMOGLOBIN 29 PG (25-34); MEAN CORPUSCULAR HGB CONC 33 G/DL (32-36); MEAN CORPUSCULAR VOLUME 89 FL (80-99); MEAN PLATELET VOLUME 9.3 FL (7.4-10.4); MONOCYTES # (AUTO) 0.7 X 10^3 (0.0-1.0); MONOCYTES % (AUTO) 13 % (0-12); NEUTROPHILS # (AUTO) 3.6 X 10^3 (1.8-7.8); NEUTROPHILS % (AUTO) 69 % (42-75); PLATELET COUNT 278 10^3/uL (130-400); RED CELL DISTRIBUTION WIDTH 16.5 % (10.0-14.5); WHITE BLOOD COUNT 5.2 10^3/uL (4.3-11.0)
[2020-02-16 05:02] VITALS: BP 107/63
[2020-02-16 05:03] LABS: ALBUMIN 2.8 GM/DL (3.2-4.5); POTASSIUM 3.2 MMOL/L (3.6-5.0)
[2020-02-16 05:04] LABS: CALCIUM 8.1 MG/DL (8.5-10.1)
[2020-02-16 05:06] LABS: TOTAL PROTEIN 5.2 GM/DL (6.4-8.2)
[2020-02-16 05:07] LABS: BILIRUBIN,TOTAL 0.8 MG/DL (0.1-1.0)
[2020-02-16 05:09] LABS: CREATININE SERUM 1.2 MG/DL (0.60-1.30)
[2020-02-16 05:12] LABS: MAGNESIUM 2.1 MG/DL (1.6-2.4)
[2020-02-16 05:14] LABS: BAND NEUTROPHILS 1 %; EOSINOPHILS % (MANUAL) 1 %; LYMPHOCYTES % (MANUAL) 12 %; MONOCYTES % (MANUAL) 10 %; NEUTROPHILS % (MANUAL) 76 %
[2020-02-16 05:15] LABS: ANISOCYTOSIS SLIGHT
[2020-02-16] MEDS: PIOGLITAZONE 30MG (ACTOS) TAB PO SCH (06:08)
[2020-02-16] MEDS: KCL 20 MEQ TAB (K-DUR) PO SCH ×2 (06:08→18:08)
[2020-02-16] MEDS: FERROUS SULF 325 MG (IRON) TAB PO SCH (06:08)
--- NOTE | 2020-02-16 07:31 | PM&R Progress Note ---
Subjective HPI/CC On Admission Date Seen by Provider: Feb 16, 2020 Time Seen by Provider: 10:00 Subjective/Events-last exam Pt doing pretty well today and he wants to go home soon Potassium 3.0 is supplemented by PCP 20meq PO BID and tolerated Very debilitated and chronically ill appearance with paleness but appears to be doing much better Cognition noted at 22/30 SLUMS score Not eating enough to help recovery and I talked to him about that Wants DNR so I ordered that Appetite decreased he reports Bowels moved today Checked meds and labs Conferred with RN Reviewed therapy notes Review of Systems General: Fatigue, Malaise Objective Exam Vital Signs Vital Signs Date Time Temp Pulse Resp B/P (MAP) Pulse Ox O2 Delivery O2 Flow Rate FiO2 02/16/20 09:00 Room Air 02/16/20 05:02 36.0 93 18 107/63 (78) 91 Capillary Refill : Less Than 3 Seconds General Appearance: No Apparent Distress, WD/WN, Chronically ill HEENT: PERRL/EOMI, Normal ENT Inspection, Pharynx Normal Neck: Full Range of Motion, Normal Inspection, Supple Respiratory: Chest Non Tender, Lungs Clear, Normal Breath Sounds, No Accessory Muscle Use, No Respiratory Distress Cardiovascular: Regular Rate, Rhythm, No Edema, No Gallop, No JVD, Normal Peripheral Pulses, Systolic Murmur Gastrointestinal: Normal Bowel Sounds, No Organomegaly, No Pulsatile Mass, Non Tender, Soft Rectal: Deferred Back: Normal Inspection, No CVA Tenderness, No Vertebral Tenderness Extremity: Normal Capillary Refill, Normal Inspection, Normal Range of Motion, Non Tender, No Calf Tenderness, No Pedal Edema Neurologic/Psychiatric: Alert, Oriented x3, Normal Mood/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 FIM Transfers Therapy Code Descriptions/Definitions Functional [place] Measure: 0=Not Assessed/NA 4=Minimal Assistance 1=Total Assistance 5=Supervision or Setup 2=Maximal Assistance 6=Modified [place] 3=Moderate Assistance 7=Complete IndependenceSCALE: Activities may be completed with or without assistive devices. 8-Qbflhqkico-aodicbe completes the activity by him/herself with no assistance from a helper. 5-Set-up or Clean-up Assistance-helper sets up or cleans up; patient completes activity. [place] assists only prior to or following the activity. 4-Supervision or Touching Assistance-helper provides verbal cues and/or touching/steadying and/or contact guard assistance as patient completes acti vity. Assistance may be provided throughout the activity or intermittently. 3-Partial/Moderate Assistance-helper does LESS THAN HALF the effort. [place] lifts, holds or supports trunk or limbs, but provides less than half the effort. 2-Substantial/Maximal Assistance-helper does MORE THAN HALF the effort. [place] lifts or holds trunk or limbs and provides more than half the effort. 9-Niyrqsnbm-tapzwy does ALL the effort. Patient does none of the effort to complete the activity. Or, the assistance of 2 or more helpers is required for the patient to complete the activity. If activity was not attempted, code reason: 7-Patient Refused. 9-Not Applicable-not attempted and the patient did not perform the activity before the current illness, exacerbation or injury. 10-Not Attempted due to Environmental Limitations-(lack of equipment, weather restraints, etc.). 88-Not Attempted due to Medical Conditions or Safety Concerns. Roll Left to Right (QC): 5 Sit to Lying (QC): 5 Sit to Stand (QC): 4 Chair/Kco-kz-Vpwlz Xfer(QC): 4 Car Transfer (QC): 4 Gait Training Does the Patient Walk?: Yes Walk 10 feet (QC): 4 Walk 50 ft with 2 Turns(QC): 4 Walk 150 ft (QC): 4 Walking 10ft/uneven surface-QC: 4 Gait Assistive Device: FWW Wheelchair Training Does the Pt Use a Wheelchair?: Yes Wheel 50 ft with 2 turns (QC): 6 Wheel 150 ft (QC): 6 Type of Wheelchair: Manual Stair Training #of Steps: 1 1 Step (curb) (QC): 4 4 Steps (QC): 88 12 Steps (QC): 88 Balance Picking up an Object (QC): 88 ADL-Treatment Eating (QC): 6 (drinking/ pouring pop into cups.) Oral Hygiene (QC): 7 Bathing Location: L Arm, R Arm, L Upper Leg, R Upper Leg, L Lower Leg (including foot), R Lower Leg (including foot), Chest, Abdomen, Buttocks, Perineal Area Shower/Bathe Self (QC): 7 (denies shower, though agreeable to bottom/ marvin h ygiene prior to brief change.) Upper Body Dressing (QC): 5 (s/u) Lower Body Dressing (QC): 4 (CGA in stance (pt doffs off of feet in standing), SBA during donning over BLE in sit and completes pulling over hips with SBA.) On/Off Footwear (QC): 5 Toileting Hygiene (QC): 4 (CGA in stance for bottom/ marvin hygiene. ) Toilet Transfer (QC): 4 (CGA, use of walker.) Assessment/Plan Assessment and Plan Assess & Plan/Chief Complaint Assessment: Severe debility Falls Dementia? on SLUMS by ST Valve replacement status HTN Orthostatic hypotension CRI Anemia of kidney disease Hypokalemia Plan: Home meds addressed per PCP Fall risk Monitor BP closely Pain control 02/14/20: Replaced Potassium per Dr. Barrientos Maintain therapies in order to discharge home with Patient appears to be very chronically ill and debilitated prognosis guarded lo ng term 02/15/20: Doing well Cognitive deficit noted at SLUMS Labs stable Potassium tolerated 02/16/20: Increase PO nutrition Increase activity DC home soon if able DNR ordered placed (1) Debility Status: Acute (2) Delirium Status: Resolved Resolution Date/Time: 02/14/20 @ 11:06 (3) Advanced age Status: Chronic (4) Falls frequently Status: Chronic (5) Heart valve replaced Status: Chronic (6) Hypertension (7) Orthostatic hypotension Status: Chronic (8) Acute kidney injury superimposed on chronic kidney disease Status: Acute (9) T2DM (type 2 diabetes mellitus) Status: Chronic Qualifiers: Diabetes mellitus bed bug exterminator insulin use: without bed bug exterminator use Diabetes mellitus complication status: without complication Qualified Codes: E11.9 - Type 2 diabetes mellitus without complications (10) Anemia Status: Chronic Qualifiers: Anemia type: iron deficiency Iron deficiency anemia type: other iron deficiency Qualified Codes: D50.8 - Other iron deficiency anemias (11) HTN (hypertension) SANJANA KOWALSKI DO Feb 16, 2020 07:31
[2020-02-16] MEDS: SENNA W/DOCUSATE (SENOKOT S) TABLET PO SCH ×2 (08:26→20:08)
[2020-02-16] MEDS: VITAMIN E 180 MG (400 UNITS) CAP PO SCH (08:26)
[2020-02-16] MEDS: ASPIRIN E.C. 81 MG (ECOTRIN) TAB PO SCH ×2 (08:26→20:08)
[2020-02-16] MEDS: polyethylene glycoL POWDER 17 GM (MIRALAX) PACK PO SCH ×2 (08:27→19:51)
[2020-02-16] MEDS: PANTOPRAZOLE 20 MG TABLET (PROTONIX) PO SCH (08:27)
[2020-02-16] MEDS: DICLOFENAC 1% GEL 100 GM (VOLTAREN) TUBE TP SCH ×4 (09:00→19:51)
--- NOTE | 2020-02-16 11:18 | Physical Therapy Daily Note ---
PT Daily Note-Current Subjective Pt agreeable to treatment. Pt without complaint other than "I want to go home." Pt spoke of his dog, misses his dog. Mental Status Patient Orientation: Person, Place, Situation Transfers SCALE: Activities may be completed with or without assistive devices. 5-Aanfdboyqo-zioqoyv completes the activity by him/herself with no assistance from a helper. 5-Set-up or Clean-up Assistance-helper sets up or cleans up; patient completes activity. [employer] assists only prior to or following the activity. 4-Supervision or Touching Assistance-helper provides verbal cues and/or touching/steadying and/or contact guard assistance as patient completes activity. Assistance may be provided throughout the activity or intermittently. 3-Partial/Moderate Assistance-helper does LESS THAN HALF the effort. [employer] lifts, holds or supports trunk or limbs, but provides less than half the effort. 2-Substantial/Maximal Assistance-helper does MORE THAN HALF the effort. [employer] lifts or holds trunk or limbs and provides more than half the effort. 1-Kyrefdlwn-tvfdvb does ALL the effort. Patient does none of the effort to complete the activity. Or, the assistance of 2 or more helpers is required for the patient to complete the activity. If activity was not attempted, code reason: 7-Patient Refused. 9-Not Applicable-not attempted and the patient did not perform the activity before the current illness, exacerbation or injury. 10-Not Attempted due to Environmental Limitations-(lack of equipment, weather restraints, etc.). 88-Not Attempted due to Medical Conditions or Safety Concerns. Transfers mod (I) all levels. Gait Training Gait Assistive Device: FWW Pt amb with FWW x 250ft at steady speed. Pt fatigued post ambulation. Exercises Seated Therapy Exercises: Long arc quads Seated Reps: 10 Treatments Pt used BR mod (I) level post therapy session Assessment Current Status: Good Progress Pt altagracia above well. Pt steady on his feet, good balance with walker and walking in hallway. Pt fatigued easily. Pt up in chair with call light, reclined and all needs met. spoke to Nurse, who was to go in and set up ambu alarm. PT Short Term Goals Short Term Goals Time Frame: Feb 20, 2020 Roll Left & Right: 5 Sit to lyin Lying to sitting on side of be: 5 Sit to stand: 5 Chair/mcw-rs-rulhm transfer: 5 Walk 10 feet: 5 Walk 50 feet with two turns: 5 Walk 150 feet: 5 PT Usp Goals Usp Goals PT Usp Goals Time Frame: Mar 05, 2020 Roll Left & Right (QC): 6 Sit to Lying (QC): 6 Lying-Sitting on Side/Bed(QC): 6 Sit to Stand (QC): 6 Chair/Huj-tt-Ipzyy Xfer(QC): 6 Toilet Transfer (QC): 6 Car Transfer (QC): 6 Does the Patient Walk: Yes Walk 10 feet (QC): 6 Walk 50ft with 2 Turns (QC): 6 Walk 150 ft (QC): 6 Walking 10ft on Uneven Surface: 6 1 Step (curb) (QC): 4 4 Steps (QC): 4 12 Steps (QC): 4 Picking up an Object (QC): 4 Wheel 50 feet with 2 turns (QC: 9 Wheel 150 feet: 9 PT Plan Treatment/Plan Treatment Plan: Continue Plan of Care Treatment Plan: Bed Mobility, Education, Functional Activity Jean, Functional Strength, Group Therapy, Gait, Safety, Therapeutic Exercise, Transfers Treatment Duration: Mar 05, 2020 Frequency: At least 5 of 7 days/Wk (IRF) Estimated Hrs Per Day: 1.5 hours per day Patient and/or Family Agrees t: Yes Time/GCodes Time In: 1025 Time Out: 1045 Total Billed Treatment Time: 20 Total Billed Treatment 1, gait 15', FA 5' IVETTE JOHNSON CPTA Feb 16, 2020 11:18
[2020-02-16 18:53] VITALS: BP 102/55
[2020-02-16] MEDS: TAMSULOSIN 0.4 MG (FLOMAX) CAP PO SCH (20:08)
[2020-02-16] MEDS: LACTOBACILLUS ACIDOPHILUS (PROBIOTIC) CAPSULE PO SCH (20:08)
[2020-02-16] MEDS: SIMvastatin 10 MG (ZOCOR) TAB PO SCH (20:08)
--- NOTE | 2020-02-16 21:20 | NUR ---
Peg tube feeding at 10cc/hr with Jevity. 0 residual noted and pt tolerating well. Rate increased to 20cc/hr. Cont to monitor Addendum: 02/17/20 at 0452 by JAIR CHIU RN wrong chart
[2020-02-17 05:20] VITALS: BP 103/62
[2020-02-17] MEDS: PIOGLITAZONE 30MG (ACTOS) TAB PO SCH (06:02)
[2020-02-17] MEDS: FERROUS SULF 325 MG (IRON) TAB PO SCH (06:03)
[2020-02-17] MEDS: PANTOPRAZOLE 20 MG TABLET (PROTONIX) PO SCH (08:11)
[2020-02-17] MEDS: SENNA W/DOCUSATE (SENOKOT S) TABLET PO SCH ×2 (08:11→20:46)
[2020-02-17] MEDS: KCL 20 MEQ TAB (K-DUR) PO SCH ×2 (08:11→17:07)
[2020-02-17] MEDS: ASPIRIN E.C. 81 MG (ECOTRIN) TAB PO SCH ×2 (08:12→20:46)
[2020-02-17] MEDS: VITAMIN E 180 MG (400 UNITS) CAP PO SCH (08:12)
[2020-02-17] MEDS: DICLOFENAC 1% GEL 100 GM (VOLTAREN) TUBE TP SCH ×4 (08:12→19:31)
[2020-02-17] MEDS: polyethylene glycoL POWDER 17 GM (MIRALAX) PACK PO SCH ×2 (08:13→19:31)
--- NOTE | 2020-02-17 08:49 | PM&R Progress Note ---
Subjective HPI/CC On Admission Date Seen by Provider: Feb 17, 2020 Time Seen by Provider: 12:45 Subjective/Events-last exam Pt doing pretty well today and currently sleeping for a nap Potassium 3.0 is supplemented by PCP 20meq PO BID and tolerated will check labs in am Very debilitated and chronically ill appearance with paleness but appears to be doing much better Cognition noted at 22/30 SLUMS score Not eating enough to help recovery and nurses are talking to him about that too Wants DNR so I ordered that yesterday Iron level a bit low so will defer to PCP Bowels moving daily Checked meds and labs Conferred with RN Reviewed therapy notes Review of Systems General: Fatigue, Malaise Neurological: Weakness Objective Exam Vital Signs Vital Signs Date Time Temp Pulse Resp B/P (MAP) Pulse Ox O2 Delivery O2 Flow Rate FiO2 02/17/20 09:00 Room Air 02/17/20 05:20 36.8 106 18 103/62 (76) 94 Capillary Refill : Less Than 3 Seconds General Appearance: No Apparent Distress, WD/WN, Chronically ill HEENT: PERRL/EOMI, Normal ENT Inspection, Pharynx Normal Neck: Full Range of Motion, Normal Inspection, Supple Respiratory: Chest Non Tender, Lungs Clear, Normal Breath Sounds, No Accessory Muscle Use, No Respiratory Distress Cardiovascular: Regular Rate, Rhythm, No Edema, No Gallop, No JVD, Normal Peripheral Pulses, Systolic Murmur Gastrointestinal: Normal Bowel Sounds, No Organomegaly, No Pulsatile Mass, Non Tender, Soft Rectal: Deferred Back: Normal Inspection, No CVA Tenderness, No Vertebral Tenderness Extremity: Normal Capillary Refill, Normal Inspection, Normal Range of Motion, Non Tender, No Calf Tenderness, No Pedal Edema Neurologic/Psychiatric: Alert, Oriented x3, Normal Mood/Affect, pet trainer II-XII Norm as Tested, Abnormal Gait, Motor Weakness (generalized legs greater loss than arms 4/5) Skin: Normal Color, Warm/Dry Lymphatic: No Adenopathy Results/Procedures Lab Patient resulted labs reviewed. FIM Transfers Therapy Code Descriptions/Definitions Functional [place] Measure: 0=Not Assessed/NA 4=Minimal Assistance 1=Total Assistance 5=Supervision or Setup 2=Maximal Assistance 6=Modified [place] 3=Moderate Assistance 7=Complete IndependenceSCALE: Activities may be completed with or without assistive devices. 0-Gbutrjvmxy-fhvkdkv completes the activity by him/herself with no assistance from a helper. 5-Set-up or Clean-up Assistance-helper sets up or cleans up; patient completes activity. [place] assists only prior to or following the activity. 4-Supervision or Touching Assistance-helper provides verbal cues and/or touching/steadying and/or contact guard assistance as patient completes activity. Assistance may be provided throughout the activity or intermittently. 3-Partial/Moderate Assistance-helper does LESS THAN HALF the effort. [place] lifts, holds or supports trunk or limbs, but provides less than half the effort. 2-Substantial/Maximal Assistance-helper does MORE THAN HALF the effort. [place] lifts or holds trunk or limbs and provides more than half the effort. 9-Bxgnrxrnr-nvnlga does ALL the effort. Patient does none of the effort to complete the activity. Or, the assistance of 2 or more helpers is required for the patient to complete the activity. If activity was not attempted, code reason: 7-Patient Refused. 9-Not Applicable-not attempted and the patient did not perform the activity before the current illness, exacerbation or injury. 10-Not Attempted due to Environmental Limitations-(lack of equipment, weather restraints, etc.). 88-Not Attempted due to Medical Conditions or Safety Concerns. Roll Left to Right (QC): 5 Sit to Lying (QC): 5 Sit to Stand (QC): 4 Chair/Fcj-rl-Dciri Xfer(QC): 4 Car Transfer (QC): 4 Gait Training Does the Patient Walk?: Yes Walk 10 feet (QC): 4 Walk 50 ft with 2 Turns(QC): 4 Walk 150 ft (QC): 4 Walking 10ft/uneven surface-QC: 4 Gait Assistive Device: FWW Wheelchair Training Does the Pt Use a Wheelchair?: Yes Wheel 50 ft with 2 turns (QC): 6 Wheel 150 ft (QC): 6 Type of Wheelchair: Manual Stair Training #of Steps: 1 1 Step (curb) (QC): 4 4 Steps (QC): 88 12 Steps (QC): 88 Balance Picking up an Object (QC): 88 ADL-Treatment Eating (QC): 6 (drinking/ pouring pop into cups.) Oral Hygiene (QC): 7 Bathing Location: L Arm, R Arm, L Upper Leg, R Upper Leg, L Lower Leg (including foot), R Lower Leg (including foot), Chest, Abdomen, Buttocks, Perineal Area Shower/Bathe Self (QC): 7 (denies shower, though agreeable to bottom/ marvin hygiene prior to brief change.) Upper Body Dressing (QC): 5 (s/u) Lower Body Dressing (QC): 4 (CGA in stance (pt doffs off of feet in standing), SBA during donning over BLE in sit and completes pulling over hips with SBA.) On/Off Footwear (QC): 5 Toileting Hygiene (QC): 4 (CGA in stance for bottom/ marvin hygiene. ) Toilet Transfer (QC): 4 (CGA, use of walker.) Assessment/Plan Assessment and Plan Assess & Plan/Chief Complaint Assessment: Severe debility Falls Dementia? on SLUMS by ST Valve replacement status HTN Orthostatic hypotension CRI Anemia of kidney disease Hypokalemia Plan: Home meds addressed per PCP Fall risk Monitor BP closely Pain control 02/14/20: Replaced Potassium per Dr. 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 02/15/20: Doing well Cognitive deficit noted at [facility] Labs stable Potassium tolerated 02/16/20: Increase PO nutrition Increase activity DC home soon if able DNR ordered placed 02/17/20: Check labs in am Maintain potassium supplement Increase PO caloric intake (1) Debility Status: Acute (2) Delirium Status: Resolved Resolution Date/Time: 02/14/20 @ 11:06 (3) Advanced age Status: Chronic (4) Falls frequently Status: Chronic (5) Heart valve replaced Status: Chronic (6) Hypertension Qualifiers: Hypertension type: essential hypertension Qualified Codes: I10 - Essential (primary) hypertension (7) Orthostatic hypotension Status: Chronic (8) Acute kidney injury superimposed on chronic kidney disease Status: Acute (9) T2DM (type 2 diabetes mellitus) Status: Chronic Qualifiers: Diabetes mellitus extermination inspector insulin use: without extermination inspector use Diabetes dede litus complication status: without complication Qualified Codes: E11.9 - Type 2 diabetes mellitus without complications (10) Anemia Status: Chronic Qualifiers: Anemia type: iron deficiency Iron deficiency anemia type: other iron deficiency Qualified Codes: D50.8 - Other iron deficiency anemias (11) HTN (hypertension) SANJANA KOWALSKI DO Feb 17, 2020 08:49
--- NOTE | 2020-02-17 10:16 | Progress Note ---
Subjective Subjective Date Seen by Provider: Feb 17, 2020 Time Seen by Provider: 09:30 No overnight events. Patient reports he is improving every day. Appetite is still down. He states he is ready to go home but knows he has some room to improve prior to getting discharged. Review of Systems General: Fatigue HEENT: No Head Aches, No Visual Changes, No Sinus Congestion Pulmonary: No Dyspnea, No Cough Cardiovascular: No: Chest Pain, Palpitations, Edema Gastrointestinal: No: Nausea, Vomiting, Abdominal Pain, Diarrhea, Constipation Genitourinary: No Dysuria Musculoskeletal: No: leg pain Neurological: Weakness All Other Systems Reviewed All Other Systems Reviewed: Yes Objective Exam Vital Signs Vital Signs Date Time Temp Pulse Resp B/P (MAP) Pulse Ox O2 Delivery O2 Flow Rate FiO2 02/17/20 05:20 36.8 106 18 103/62 (76) 94 Room Air 02/16/20 20:00 Room Air 02/16/20 18:53 36.6 89 18 102/55 (71) 95 Room Air I & O 02/17/20 07:00 Intake Total 1660 ml Balance 1660 ml General Appearance: No Apparent Distress, WD/WN, Chronically ill Eyes: Bilateral Eye Normal Inspection, Bilateral Eye PERRL, Bilateral Eye EOMI HEENT: PERRL/EOMI, Normal ENT Inspection, Pharynx Normal Neck: Full Range of Motion, Normal Inspection, Supple Respiratory: Chest Non Tender, Lungs Clear, Normal Breath Sounds, No Accessory Muscle Use, No Respiratory Distress Cardiovascular: Regular Rate, Rhythm, No Edema, No Gallop, No JVD, Normal Peripheral Pulses, Systolic Murmur Gastrointestinal: Normal Bowel Sounds, No Organomegaly, No Pulsatile Mass, Non Tender, Soft Rectal: Deferred Back: Normal Inspection, No CVA Tenderness, No Vertebral Tenderness Extremity: Normal Capillary Refill, Normal Inspection, Normal Range of Motion, Non Tender, No Calf Tenderness, No Pedal Edema Neurologic/Psychiatric: Alert, Oriented x3, Normal Mood/Affect, underwater welder II-XII Norm as Tested, Abnormal Gait, Motor Weakness (generalized legs greater loss than arms 4/5) Skin: Normal Color, Warm/Dry Lymphatic: No Adenopathy Results Lab Laboratory Tests 02/16/20 11:29: Glucometer 123H 02/16/20 16:21: Glucometer 204H 02/16/20 20:11: Glucometer 103 02/17/20 06:02: Glucometer 125H Assessment/Plan Assessment/Plan Assessment and Plan 02/17/20- keep working with PT/OT rehab program. Encouraged him to try eating a little more. Potassium being replaced. Will recheck in AM. Dispo: plan to discharge to home with with completion of rehab. Problems: (1) Debility (2) Delirium (3) Advanced age (4) Falls frequently (5) Heart valve replaced (6) Hypertension Qualifiers: Qualified Codes: I10 - Essential (primary) hypertension (7) Orthostatic hypotension (8) Acute kidney injury superimposed on chronic kidney disease (9) T2DM (type 2 diabetes mellitus) Qualifiers: Qualified Codes: E11.9 - Type 2 diabetes mellitus without complications (10) Anemia Qualifiers: Qualified Codes: D50.8 - Other iron deficiency anemias (11) HTN (hypertension) (12) Hypokalemia Clinical Quality Measures DVT/VTE Risk/Contraindication: Risk Factor Score Per Nursin RFS Level Per Nursing on Admit: 2=Moderate KEHINDE KITCHEN MD Feb 17, 2020 10:15
[2020-02-17 18:32] VITALS: BP 123/72
[2020-02-17] MEDS: TAMSULOSIN 0.4 MG (FLOMAX) CAP PO SCH (20:46)
[2020-02-17] MEDS: LACTOBACILLUS ACIDOPHILUS (PROBIOTIC) CAPSULE PO SCH (20:46)
[2020-02-17] MEDS: SIMvastatin 10 MG (ZOCOR) TAB PO SCH (20:46)
[2020-02-18 05:08] LABS: BASOPHILS % (AUTO) 0 % (0-10); EOSINOPHILS # (AUTO) 0.1 10^3/uL (0.0-0.3); EOSINOPHILS % (AUTO) 1 % (0-10); HEMATOCRIT 35 % (40-54); HEMOGLOBIN 11.2 G/DL (13.3-17.7); LYMPHOCYTES # (AUTO) 0.9 X 10^3 (1.0-4.0); LYMPHOCYTES % (AUTO) 16 % (12-44); MEAN CORPUSCULAR HEMOGLOBIN 29 PG (25-34); MEAN CORPUSCULAR HGB CONC 32 G/DL (32-36); MEAN CORPUSCULAR VOLUME 90 FL (80-99); MEAN PLATELET VOLUME 9.6 FL (7.4-10.4); MONOCYTES # (AUTO) 0.6 X 10^3 (0.0-1.0); MONOCYTES % (AUTO) 11 % (0-12); NEUTROPHILS # (AUTO) 4.3 X 10^3 (1.8-7.8); NEUTROPHILS % (AUTO) 72 % (42-75); PLATELET COUNT 252 10^3/uL (130-400); RED CELL DISTRIBUTION WIDTH 16.9 % (10.0-14.5); WHITE BLOOD COUNT 5.9 10^3/uL (4.3-11.0)
[2020-02-18 05:10] VITALS: BP 104/65
[2020-02-18 05:16] LABS: ALBUMIN 2.8 GM/DL (3.2-4.5); POTASSIUM 3.9 MMOL/L (3.6-5.0)
[2020-02-18 05:17] LABS: CALCIUM 8.3 MG/DL (8.5-10.1)
[2020-02-18 05:18] LABS: TOTAL PROTEIN 5.2 GM/DL (6.4-8.2)
[2020-02-18 05:20] LABS: BILIRUBIN,TOTAL 0.8 MG/DL (0.1-1.0)
[2020-02-18 05:22] LABS: CREATININE SERUM 1.4 MG/DL (0.60-1.30)
[2020-02-18] MEDS: FERROUS SULF 325 MG (IRON) TAB PO SCH (06:16)
[2020-02-18] MEDS: PIOGLITAZONE 30MG (ACTOS) TAB PO SCH (06:16)
[2020-02-18] MEDS: KCL 20 MEQ TAB (K-DUR) PO SCH ×2 (07:56→18:56)
[2020-02-18] MEDS: VITAMIN E 180 MG (400 UNITS) CAP PO SCH (08:00)
[2020-02-18] MEDS: SENNA W/DOCUSATE (SENOKOT S) TABLET PO SCH ×2 (08:00→20:46)
[2020-02-18] MEDS: PANTOPRAZOLE 20 MG TABLET (PROTONIX) PO SCH (08:00)
[2020-02-18] MEDS: ASPIRIN E.C. 81 MG (ECOTRIN) TAB PO SCH ×2 (08:00→20:37)
[2020-02-18] MEDS: polyethylene glycoL POWDER 17 GM (MIRALAX) PACK PO SCH ×2 (08:01→20:46)
[2020-02-18] MEDS: DICLOFENAC 1% GEL 100 GM (VOLTAREN) TUBE TP SCH ×4 (08:01→20:46)
--- NOTE | 2020-02-18 08:02 | Progress Note ---
Subjective Subjective Date Seen by Provider: Feb 18, 2020 Time Seen by Provider: 07:30 Pt states he feels "lousy today". He did not eat very much of his breakfast and states that is all he wants to eat. He reports not sleeping very good last night. He denies any coughing or trouble breathing. He denies any fever or chills. He appeared very tired today and left to rest before therapy started. Pt has had trouble with PT due to blood pressure dropping when he stands up from sitting making it hard to participate in therapy outside seated and supine exercises. He wants to go home, but understands he must get stronger to have success in going home and not having to come back to the hospital. Review of Systems General: Fatigue, Malaise HEENT: No Head Aches, No Visual Changes, No Sinus Congestion Pulmonary: No Dyspnea, No Cough Cardiovascular: No: Chest Pain, Palpitations, Edema Gastrointestinal: No: Nausea, Vomiting, Abdominal Pain, Diarrhea, Constipation Genitourinary: No Dysuria Musculoskeletal: No: leg pain Neurological: Weakness All Other Systems Reviewed All Other Systems Reviewed: Yes Objective Exam Vital Signs Vital Signs - First Documented 02/13/20 10:57 Temp 36.4 Pulse 94 Resp 18 B/P (MAP) 104/58 Pulse Ox 95 O2 Delivery Room Air Capillary Refill : Less Than 3 Seconds General Appearance: WD/WN, Chronically ill, Mild Distress Eyes: Bilateral Eye Normal Inspection, Bilateral Eye PERRL, Bilateral Eye EOMI HEENT: PERRL/EOMI Neck: Full Range of Motion, Normal Inspection, Supple Respiratory: Chest Non Tender, Lungs Clear, Normal Breath Sounds, No Accessory Muscle Use, No Respiratory Distress Cardiovascular: Regular Rate, Rhythm, No Edema, No Gallop, No JVD, Normal Peripheral Pulses, Systolic Murmur Gastrointestinal: Normal Bowel Sounds, Soft Rectal: Deferred Back: Normal Inspection, No CVA Tenderness, No Vertebral Tenderness Extremity: Normal Capillary Refill, Normal Inspection, Non Tender, No Calf Tenderness, No Pedal Edema Neurologic/Psychiatric: Alert, Oriented x3, Normal Mood/Affect, biological technician II-XII Norm as Tested, Abnormal Gait, Motor Weakness (generalized legs greater than arms ) Skin: Normal Color, Warm/Dry Lymphatic: No Adenopathy Results Lab Laboratory Tests 02/17/20 11:58: Glucometer 128H 02/17/20 16:37: Glucometer 207H 02/18/20 04:43: White Blood Count 5.9, Red Blood Count 3.91L, Hemoglobin 11.2L, Hematocrit 35L, Mean Corpuscular Volume 90, Mean Corpuscular Hemoglobin 29, Mean Corpuscular He moglobin Concent 32, Red Cell Distribution Width 16.9H, Platelet Count 252, Mean Platelet Volume 9.6, Neutrophils (%) (Auto) 72, Lymphocytes (%) (Auto) 16, Monocytes (%) (Auto) 11, Eosinophils (%) (Auto) 1, Basophils (%) (Auto) 0, Neut rophils # (Auto) 4.3, Lymphocytes # (Auto) 0.9L, Monocytes # (Auto) 0.6, Eosinophils # (Auto) 0.1, Basophils # (Auto) 0.0, Sodium Level 140, Potassium Level 3.9, Chloride Level 106, Carbon Dioxide Level 24, Anion Gap 10, Blood Urea Nitrogen 9, Creatinine 1.40H, Estimat Glomerular Filtration Rate 48, BUN/Creatinine Ratio 6, Glucose Level 114H, Calcium Level 8.3L, Corrected Calcium 9.3, Total Bilirubin 0.8, Aspartate Amino Transf (AST/SGOT) 18, Alanine Aminotransferase (ALT/SGPT) 14, Alkaline Phosphatase 119, Total Protein 5.2L, Albumin 2.8L Assessment/Plan Assessment/Plan Assessment and Plan DEBILITY -CONTINUE OT/PT/SPEECH -SMALL IMPROVEMENTS WITH PROGRESS LIMITED BY ORTHOSTATIC HYPOTENSION -MONITOR DELIRIUM -IMPROVED ANEMIA -MONITOR HGB/HCT -CONTINUE ORAL IRON SUPPLEMENTATION TYPE 2 DIABETES MELLITUS -CONTINUE PIOGLITAZONE 45MG DAILY -MONITOR BLOOD GLUCOSE HYPERTENSION -MONITOR ORTHOSTATIC HYPOTENSION -ENCOURAGE FLUIDS -CONTINUE STAND WITH ASSIST -MONITOR Problems: (1) Debility (2) Delirium (3) Advanced age (4) Falls frequently (5) Heart valve replaced (6) Hypertension Qualifiers: Qualified Codes: I10 - Essential (primary) hypertension (7) Orthostatic hypotension (8) Acute kidney injury superimposed on chronic kidney disease (9) T2DM (type 2 diabetes mellitus) Qualifiers: Qualified Codes: E11.9 - Type 2 diabetes mellitus without complications (10) Anemia Qualifiers: Qualified Codes: D50.8 - Other iron deficiency anemias (11) HTN (hypertension) (12) Hypokalemia Clinical Quality Measures DVT/VTE Risk/Contraindication: Risk Factor Score Per Nursin RFS Level Per Nursing on Admit: 2=Moderate CASIMIRO MITCHELL [facility] Feb 18, 2020 08:02
--- NOTE | 2020-02-18 08:29 | Occupational Ther Daily Note ---
OT Current Status-Daily Note Subjective [id number] (20): Pt seen in bed, nursing present. Pt denies pain. Pt drowsy, nursing states pt did not sleep well. Pt does not agree to therapy this am. Consistently requesting to lay down. Pt states stomach pains end of session. [id number] (55): Pt seen in bed asleep. Pt easily wakes with verbal entry. pt sta boni he had 2 BMs this am, reluctantly agreeable to therapy this morning. Pt denies shower, then later states shower need. ADL-Treatment Therapy Code Descriptions/Definitions Functional [place] Measure: 0=Not Assessed/NA 4=Minimal Assistance 1=Total Assistance 5=Supervision or Setup 2=Maximal Assistance 6=Modified [place] 3=Moderate Assistance 7=Complete IndependenceSCALE: Activities may be completed with or without assistive devices. 1-Fddfgtfewz-gtyunmu completes the activity by him/herself with no assistance fr om a helper. 5-Set-up or Clean-up Assistance-helper sets up or cleans up; patient completes activity. [place] assists only prior to or following the activity. 4-Supervision or Touching Assistance-helper provides verbal cues and/or touching/steadying and/or contact guard assistance as patient completes activity. Assistance may be provided throughout the activity or intermittently. 3-Partial/Moderate Assistance-helper does LESS THAN HALF the effort. [place] lifts, holds or supports trunk or limbs, but provides less than half the effort. 2-Substantial/Maximal Assistance-helper does MORE THAN HALF the effort. [place] lifts or holds trunk or limbs and provides more than half the effort. 6-Lfzhdjoqo-tgdxtw does ALL the effort. Patient does none of the effort to complete the activity. Or, the assistance of 2 or more helpers is required for the patient to complete the activity. If activity was not attempted, code reason: 7-Patient Refused. 9-Not Applicable-not attempted and the patient did not perform the activity before the current illness, exacerbation or injury. 10-Not Attempted due to Environmental Limitations-(lack of equipment, weather restraints, etc.). 88-Not Attempted due to Medical Conditions or Safety Concerns. Eating (QC): 4 (Pt is IND with eating, though requires cues for eating/ drinking per nursing over weekend. ) Oral Hygiene (QC): 7 (denies this date. ) Bathing Location: L Arm, R Arm, L Upper Leg, R Upper Leg, L Lower Leg (including foot), R Lower Leg (including foot), Chest, Abdomen, Buttocks, Perineal Area Shower/Bathe Self (QC): 4 (Pt SBA with use of gb and 2WW to shower transfer. Pt denies doffing pants until shower warm. Pt stands to doff, closes curtain, then doffs in stance. SBA in shower, cues to sit for safety. ) Upper Body Dressing (QC): 6 (gathers and dons with IND.) Lower Body Dressing (QC): 4 (gathers and dons with SBA/ cues for safety and energy conservations. ) On/Off Footwear: 4 (SBA as pt dons slippers in stance/ balancing on 1 foot while donning opposite, use of gb for balance during this task. Pt does not sit for safety with cues, continues in stance with SBA) Toileting Hygiene (QC): 4 (SBA during bottom hygiene in shower. ) Toilet Transfer (QC): 4 (SBA) Other Treatment [id number]: Pt seen EOB during medication management. Pt sits up with CGA and encouragement to sit up straight during feeding/ medication task. Pt is questioned if shower sounds good this am. Pt declines. Pt immediately lays back down. Pt given ~3 min for rest while schedule gathered for pt. Pt given schedule and educated on when napping is encouraged, pt states he does not want to work. Pt is asked if therapy is pushed ~30-60 min if he would agree to therapy. Pt states, "I don't know." Pt encouraged to participate, educated on purpose of therapy and safety/ functional activity tolerance concern at home and benefits of therapy, pt states, "I don't want to do anything, my stomach aches." Pt left in bed with safety measures addressed, all needs met, call light in reach. Nursing made aware of pt position and stomach pains. [id number] (55): Pt wakes with ease, agrees to therapy reluctantly and with moderate cues for purpose of activity and pt's ability to direct tx. Pt agrees to shower, then declines, then agrees. Pt gathers clothing from bag. Pt sits EOB with SBA, BP assessed in sit: 113/59, in stand: 98/33, and post-showering in sit: 108/51. Due to pt's hypotension, pt educated on safety concerns/ sitting during shower as much as possible. Pt denies lightheadedness. Pt continues through shower with safety cues, follows safety cues intermittently. Pt dresses in shower, demonstrating SOB: 02 assessed: 99%. Pt educated to continue breathing through nose. Pt returns to chair, all needs met, call light in reach, chair alarm on. Pt Education OT Patient Education: Correct positioning, Energy conservation, Modified ADL techniques, Purpose of tx/functional activities, Safety issues Teaching Recipient: Patient Teaching Methods: Demonstration, Discussion Response to Teaching: Verbalize Understanding, Unable to Return Demonstration, Return Demonstration, Reinforcement Needed OT Short Term Goals Short Term Goals Time Frame: Feb 20, 2020 Upper body dressin Lower body dressin Putting on/taking off footwear: 6 OT Alf Goals Metal Riveting Machine Operator Goals Time Frame: Feb 27, 2020 Eating (QC): 6 Oral Hygiene (QC): 6 Toileting Hygiene (QC): 6 Shower/Bathe Self (QC): 6 Upper Body Dressing (QC): 6 Lower Body Dressing (QC): 6 On/Off Footwear (QC): 6 Additional Goals: 1-Demonstrate ADL Tasks, 2-Verbalize Understanding, 3-Improv eStrength/Jean 1=Demonstrate adherence to instructed precautions during ADL tasks. 2=Patient will verbalize/demonstrate understanding of assistive devices/modifications for ADL. 3=Patient will improve strength/tolerance for activity to enable patient to p erform ADL's. OT Education/Plan Problem List/Assessment Assessment: Decreased Activ Tolerance, Decreased Safety Aware, Decreased UE Strength, Impaired Cognition, Impaired Funct Balance, Impaired I ADL's, Impaired Self-Care Skills Discharge Recommendations Plan/Recommendations: Continue POC Therapy Discharge Recommendati: Home & Family Treatment Plan/Plan of Care Treatment,Training & Education: Yes Patient would benefit from OT for education, treatment and training to promote independence in ADL's, mobility, safety and/or upper extremity function for ADL's. Plan of Care: ADL Retraining, Caregiver Training, Concurrent Therapy, Functional Mobility, Group Exercise/Act as Ind, UE Funct Exercise/Act, UE Neuromus Re-Ed/Coord Treatment Duration: Feb 27, 2020 Frequency: At least 5 of 7 days/Wk (IRF) Estimated Hrs Per Day: 1.5 hours per day Rehab Potential: Fair Time/GCodes Start Time: 08:00 (0900) Stop Time: 08:20 (954) Total Time Billed (hr/min): 75 Billed Treatment Time [id number] (20): 1, ADL [id number] (55): 1, ADL 4 FERMIN REID OTR Feb 18, 2020 08:29
[2020-02-18 08:30] VITALS: BP 123/57
--- NOTE | 2020-02-18 09:12 | PM&R Progress Note ---
Subjective HPI/CC On Admission Date Seen by Provider: Feb 18, 2020 Time Seen by Provider: 09:15 Subjective/Events-last exam Pt has some difficulty motivating PCP was updated about this Up in chair and doing much better No pain is reported Overall feels much better Bowels moving daily Checked meds and labs Conferred with RN Reviewed therapy notes Review of Systems General: Fatigue, Malaise Neurological: Weakness, Incoordination Objective Exam Vital Signs Vital Signs Date Time Temp Pulse Resp B/P (MAP) Pulse Ox O2 Delivery O2 Flow Rate FiO2 02/18/20 18:23 36.4 90 16 98/61 (73) 95 Room Air Capillary Refill : Less Than 3 Seconds General Appearance: WD/WN, Chronically ill, Mild Distress HEENT: PERRL/EOMI Neck: Full Range of Motion, Normal Inspection, Supple Respiratory: Chest Non Tender, Lungs Clear, Normal Breath Sounds, No Accessory Muscle Use, No Respiratory Distress Cardiovascular: Regular Rate, Rhythm, No Edema, No Gallop, No JVD, Normal Peripheral Pulses, Systolic Murmur Gastrointestinal: Normal Bowel Sounds, Soft Rectal: Deferred Back: Normal Inspection, No CVA Tenderness, No Vertebral Tenderness Extremity: Normal Capillary Refill, Normal Inspection, Non Tender, No Calf Tenderness, No Pedal Edema Neurologic/Psychiatric: Alert, Oriented x3, Normal Mood/Affect, assembly lead person II-XII Norm as Tested, Abnormal Gait, Motor Weakness (generalized legs greater than arms ) Skin: Normal Color, Warm/Dry Lymphatic: No Adenopathy Results/Procedures Lab Laboratory Tests 02/18/20 04:43 Patient resulted labs reviewed. FIM Transfers Therapy Code Descriptions/Definitions Functional [place] Measure: 0=Not Assessed/NA 4=Minimal Assistance 1=Total Assistance 5=Supervision or Setup 2=Maximal Assistance 6=Modified [place] 3=Moderate Assistance 7=Complete IndependenceSCALE: Activities may be completed with or without assistive devices. 3-Yomfyvpbbb-hbmjawh completes the activity by him/herself with no assistance from a helper. 5-Set-up or Clean-up Assistance-helper sets up or cleans up; patient completes activity. [place] assists only prior to or following the activity. 4-Supervision or Touching Assistance-helper provides verbal cues and/or touching/steadying and/or contact guard assistance as patient completes activity. Assistance may be provided throughout the activity or intermittently. 3-Partial/Moderate Assistance-helper does LESS THAN HALF the effort. [place] lifts, holds or supports trunk or limbs, but provides less than half the effort. 2-Substantial/Maximal Assistance-helper does MORE THAN HALF the effort. [place] lifts or holds trunk or limbs and provides more than half the effort. 1-Dqakvsgjq-befpps does ALL the effort. Patient does none of the effort to complete the activity. Or, the assistance of 2 or more helpers is required for the patient to complete the activity. If activity was not attempted, code reason: 7-Patient Refused. 9-Not Applicable-not attempted and the patient did not perform the activity before the current illness, exacerbation or injury. 10-Not Attempted due to Environmental Limitations-(lack of equipment, weather restraints, etc.). 88-Not Attempted due to Medical Conditions or Safety Concerns. Roll Left to Right (QC): 5 Sit to Lying (QC): 5 Sit to Stand (QC): 4 Chair/Lrd-nq-Igwit Xfer(QC): 4 Car Transfer (QC): 4 Gait Training Does the Patient Walk?: Yes Walk 10 feet (QC): 4 Walk 50 ft with 2 Turns(QC): 4 Walk 150 ft (QC): 4 Walking 10ft/uneven surface-QC: 4 Gait Assistive Device: FWW Wheelchair Training Does the Pt Use a Wheelchair?: Yes Wheel 50 ft with 2 turns (QC): 6 Wheel 150 ft (QC): 6 Type of Wheelchair: Manual Stair Training #of Steps: 1 1 Step (curb) (QC): 4 4 Steps (QC): 88 12 Steps (QC): 88 Balance Picking up an Object (QC): 88 ADL-Treatment Eating (QC): 6 (drinking/ pouring pop into cups.) Oral Hygiene (QC): 7 Bathing Location: L Arm, R Arm, L Upper Leg, R Upper Leg, L Lower Leg (includin g foot), R Lower Leg (including foot), Chest, Abdomen, Buttocks, Perineal Area Shower/Bathe Self (QC): 7 (denies shower, though agreeable to bottom/ marvin hygiene prior to brief change.) Upper Body Dressing (QC): 5 (s/u) Lower Body Dressing (QC): 4 (CGA in stance (pt doffs off of feet in standing), SBA during donning over BLE in sit and completes pulling over hips with SBA.) On/Off Footwear (QC): 5 Toileting Hygiene (QC): 4 (CGA in stance for bottom/ marvin hygiene. ) Toilet Transfer (QC): 4 (CGA, use of walker.) Assessment/Plan Assessment and Plan Assess & Plan/Chief Complaint Assessment: Severe debility Falls Dementia? on SL[facility] by ST Valve replacement status HTN Orthostatic hypotension CRI Anemia of kidney disease Hypokalemia Plan: Home meds addressed per PCP Fall risk Monitor BP closely Pain control 02/14/20: Replaced Potassium per Dr. Barrientos Maintain therapies in order to discharge home with Patient appears to be very chronically ill and debilitated prognosis guarded long-term 02/15/20: Doing well Cognitive deficit noted at SLU[facility] Labs stable Potassium tolerated 02/16/20: Increase PO nutrition Increase activity DC home soon if able DNR ordered placed 02/17/20: Check labs in am Maintain potassium supplement Increase PO caloric intake 02/18/20: DC planning Monitor BP Potassium tolerated (1) Debility Status: Acute (2) Delirium Status: Resolved Resolution Date/Time: 02/14/20 @ 11:06 (3) Advanced age Status: Chronic (4) Falls frequently Status: Chronic (5) Heart valve replaced Status: Chronic (6) Hypertension Qualifiers: Hypertension type: essential hypertension Qualified Codes: I10 - Essential (primary) hypertension (7) Orthostatic hypotension Status: Chronic (8) Acute kidney injury superimposed on chronic kidney disease Status: Acute (9) T2DM (type 2 diabetes mellitus) Status: Chronic Qualifiers: Diabetes mellitus long-term insulin use: without exterminator termite use Diabetes mellitus complication status: without complication Qualified Codes: E11.9 - Type 2 diabetes mellitus without complications (10) Anemia Status: Chronic Qualifiers: Anemia type: iron deficiency Iron deficiency anemia type: other iron deficiency Qualified Codes: D50.8 - Other iron deficiency anemias (11) HTN (hypertension) (12) Hypokalemia SANJANA KOWALSKI DO Feb 18, 2020 09:12
--- NOTE | 2020-02-18 10:54 | Speech Therapy Daily Note ---
Speech Daily Progress Note Subjective Date Seen by Provider: Feb 18, 2020 Time Seen by Provider: 00:30 Patient was up in his recliner following his OT session. Patient states he had a shower this morning. Objective Patient completed a series of memory tasks for recall of words presented of 3 an d 5 words. Patient was able to recall at 85% at 3 words and 75% for 5 words. Assessment Assessment Current Status: Good Progress Treatment Plan Continue Plan of Care Speech Short Term Goals Short Term Goals Short Term Goals 1) Patient will complete memory tasks related to his daily needs at 90% or greater with minimal cuing. 2) Patient will complete safety awareness tasks related to his daily needs at 90% or greater with minimal cuing. 3) Patient will complete problem solving tasks related to his daily needs at 90% or greater with minimal cuing. Speech Dining Room Server Goals Dining Room Server Goals Patient will improve cognitive-communication necessary for safety and daily living tasks with minimal assist. Speech-Plan Patient/Family Goals Patient/Family Goals: Patient plans on returning to his home upon hospital discharge. Treatment Plan Speech Therapy Treatment Plan: Continue Plan of Care Treatment Duration: Feb 22, 2020 Frequency: 5 times per week Estimated Hrs Per Day: .5 hour per day Rehab Potential: Fair Barriers to Learning: Patient's recent medical status Pt/Family Agrees to Plan: Yes Safety Risks/Education Teaching Recipient: Patient Teaching Methods: Demonstration, Discussion Response to Teaching: Verbalize Understanding, Return Demonstration Education Topics Provided: Safety within his room and continued communication Time Speech Therapy Time In: 09:55 Speech Therapy Time Out: 10:25 Total Billed Time: 30 Billed Treatment Time 1MIKAYLA BETH[address] ST Feb 18, 2020 10:54
--- NOTE | 2020-02-18 12:08 | Physical Therapy Daily Note ---
PT Daily Note-Current Subjective Pt in recliner upon arrival. Pt very unmotivated and doesn't want to do PT, pt agrees with encouragement. Throughout tx, pt repeatedly asked why we were doing therapy and that his will do everything for him when he goes home. Mental Status Patient Orientation: Person, Place, Time, Situation Transfers SCALE: Activities may be completed with or without assistive devices. 9-Znrvhxzveb-snpoczj completes the activity by him/herself with no assistance from a helper. 5-Set-up or Clean-up Assistance-helper sets up or cleans up; patient completes activity. [place] assists only prior to or following the activity. 4-Supervision or Touching Assistance-helper provides verbal cues and/or touching/steadying and/or contact guard assistance as patient completes activity. Assistance may be provided throughout the activity or intermittently. 3-Partial/Moderate Assistance-helper does LESS THAN HALF the effort. [place] lifts, holds or supports trunk or limbs, but provides less than half the effort. 2-Substantial/Maximal Assistance-helper does MORE THAN HALF the effort. [place] lifts or holds trunk or limbs and provides more than half the effort. 6-Urlbocebl-rmppoz does ALL the effort. Patient does none of the effort to complete the activity. Or, the assistance of 2 or more helpers is required for the patient to complete the activity. If activity was not attempted, code reason: 7-Patient Refused. 9-Not Applicable-not attempted and the patient did not perform the activity before the current illness, exacerbation or injury. 10-Not Attempted due to Environmental Limitations-(lack of equipment, weather restraints, etc.). 88-Not Attempted due to Medical Conditions or Safety Concerns. Roll Left & Right (QC): 5 Sit to Lying (QC): 5 Lying to Sitting/Side of Bed(Q: 5 Sit to Stand (QC): 5 Chair/Fbs-cj-Qfqdm Xfer(QC): 5 Toilet Transfer (QC): 5 Pt can performs these activities but is unmotivated to perform them. Gait Training Does the Patient Walk?: Yes Distance: 150 x2 Walk 10 feet (QC): 4 Walk 50 ft with 2 Turns(QC): 4 Walk 150 ft (QC): 4 Gait Persons Needed: 1 Gait Assistive Device: FWW Pt amb around unit with FWW followed by WC. Pt has equal stride length and steady gait, pt had slight LOB during a turn and self corrected. Pt amb to gym and back to room. Wheelchair Training Does the Pt Use a Wheelchair?: Yes Wheel 50 ft with 2 turns (QC): 6 Wheel 150 ft (QC): 6 Type of Wheelchair: Manual Pt is able to maneuver WC throughout hallways and around tight spaces. Stair Training Pt stated he has 10 stairs at home and can do them with one hand rail stating "that's all he needs". Pt unmotivated to performs stairs at this time. Exercises Seated Therapy Exercises: Ankle pumps, Long arc quads, Hip flexion, Hip a bd/add, Glut set Seated Reps: 15 Treatments Pt amb from room to gym and took a seated rest break. Pt performed seated exercises in gym, prior to exercises pt stated he didn't want to do exercises because he is strong enough and his will help him at home. Pt repeatedly expressed he was ready to go back to his room because lunch would be there soon. Pt returned to room and was left with all needs met, call light in hand. Assessment Current Status: Good Progress Pt extremely unmotivated to improve. Pt requires constant encouragement to perform activities. Pt WC skills are efficient for home mobility and are a good alternative to amb secondary to orthostatic hypotension that plagues pt off and on. PT Short Term Goals Short Term Goals Time Frame: Feb 20, 2020 Roll Left & Right: 5 Sit to lyin Lying to sitting on side of be: 5 Sit to stand: 5 Chair/diq-so-hwxgg transfer: 5 Walk 10 feet: 5 Walk 50 feet with two turns: 5 Walk 150 feet: 5 PT Detention Goals 911 Dispatcher Goals PT Detention Goals Time Frame: Mar 05, 2020 Roll Left & Right (QC): 6 Sit to Lying (QC): 6 Lying-Sitting on Side/Bed(QC): 6 Sit to Stand (QC): 6 Chair/Flk-vx-Oykyz Xfer(QC): 6 Toilet Transfer (QC): 6 Car Transfer (QC): 6 Does the Patient Walk: Yes Walk 10 feet (QC): 6 Walk 50ft with 2 Turns (QC): 6 Walk 150 ft (QC): 6 Walking 10ft on Uneven Surface: 6 1 Step (curb) (QC): 4 4 Steps (QC): 4 12 Steps (QC): 4 Picking up an Object (QC): 4 Wheel 50 feet with 2 turns (QC: 9 Wheel 150 feet: 9 PT Plan Treatment/Plan Treatment Plan: Continue Plan of Care Treatment Plan: Bed Mobility, Education, Functional Activity Jean, Functional Strength, Group Therapy, Gait, Safety, Therapeutic Exercise, Transfers Treatment Duration: Mar 05, 2020 Frequency: At least 5 of 7 days/Wk (IRF) Estimated Hrs Per Day: 1.5 hours per day Patient and/or Family Agrees t: Yes Safety Risks/Education Patient Education: Gait Training, Correct Positioning, Safety Issues Teaching Recipient: Patient Teaching Methods: Demonstration, Discussion Response to Teaching: Verbalize Understanding, Return Demonstration, Re inforcement Needed Time/GCodes Time In: 1130 Time Out: 1200 Total Billed Treatment Time: 30 Total Billed Treatment 1, GT (15m), Ex (15m) EVELIA VALERIO PHARMACEUTICAL SALES REPRESENTATIVE Feb 18, 2020 12:08
--- NOTE | 2020-02-18 12:59 | NUR ---
CM/SS CONCURRENT DOCUMENTATION Patient's daughter Arely Pereira brought in updated DPOA-HC and POA documents for patient and spouse Shyla Glez review and signature. Notary and two witnesses present for completion of the documents per legal protocols.
--- NOTE | 2020-02-18 13:15 | NUR ---
PT REFUSES TO DRINK ENSURES, DC'D PER PT'S REQUEST.
--- NOTE | 2020-02-18 14:48 | Physical Therapy Daily Note ---
PT Daily Note-Current Subjective Pt in recliner upon arrival with in room. Pt is hesitant about PT, with encouragement from pt agrees to tx. Pt stated he knows he needs to be doing exercises and getting stronger to go home. Mental Status Patient Orientation: Person, Place, Time, Situation Transfers SCALE: Activities may be completed with or without assistive devices. 8-Zdxkqbpngv-addcdhz completes the activity by him/herself with no assistance from a helper. 5-Set-up or Clean-up Assistance-helper sets up or cleans up; patient completes activity. [place] assists only prior to or following the activity. 4-Supervision or Touching Assistance-helper provides verbal cues and/or touching/steadying and/or contact guard assistance as patient completes activity. Assistance may be provided throughout the activity or intermittently. 3-Partial/Moderate Assistance-helper does LESS THAN HALF the effort. [place] lifts, holds or supports trunk or limbs, but provides less than half the effort. 2-Substantial/Maximal Assistance-helper does MORE THAN HALF the effort. [place] lifts or holds trunk or limbs and provides more than half the effort. 5-Cudwqzdah-niphoz does ALL the effort. Patient does none of the effort to complete the activity. Or, the assistance of 2 or more helpers is required for the patient to complete the activity. If activity was not attempted, code reason: 7-Patient Refused. 9-Not Applicable-not attempted and the patient did not perform the activity before the current illness, exacerbation or injury. 10-Not Attempted due to Environmental Limitations-(lack of equipment, weather restraints, etc.). 88-Not Attempted due to Medical Conditions or Safety Concerns. Sit to Stand (QC): 4 Gait Training Distance: 150 Walk 10 feet (QC): 4 Walk 50 ft with 2 Turns(QC): 4 Walk 150 ft (QC): 4 Gait Assistive Device: FWW Wheelchair Training Does the Pt Use a Wheelchair?: Yes Type of Wheelchair: Manual Pt taken in WC back to room by SHIPPING LEAD PERSON d/t drop in BP. Stair Training Stair Training: Handrails/: 1 handrail #of Steps: 4 1 Step (curb) (QC): 4 4 Steps (QC): 4 Stairs: Pattern: Step to Pt had step to gait, using both hands on L hand rail ascending and R rail descending. Pt did surprisingly well and noted he has his own sequencing on steps. Exercises Seated Therapy Exercises: Long arc quads, Glut set Seated Reps: 10 Standing: Hip Abduction, Hamstring curls, Heel/toe raises, Marching Standing Reps: 10 Treatments Pt in bed and supine to sit SBA and amb to gym followed by . Pt took a seated rest break and performed stairs CGA. Pt took a seated rest break followed by performing standing exercises at the // bars. Pt reported feeling lightheaded, pt instructed to sit down and took a seated rest break. Pt performed seated rest breaks, and stated he still was slightly lightheaded. BP was taken a total of 3 times in seated readinst: 117/49, 2nd: 94/54, 3rd: 87/38. At this time RN was notified and pt was propelled back to room in . Pt transferred to bed and laid down, BP was taken three more times readinst: 99/55, 2nd: 108/52, 3rd: 104/53. Pt was left in bed with RN in room. Assessment Current Status: Good Progress Pt activity is limited d/t low BP and complaints on dizziness/lightheadedness. Pt has 17 steps in house leading to bedroom, pt stated he could sleep downstairs on mail floor if needed. PT Short Term Goals Short Term Goals Time Frame: Feb 20, 2020 Roll Left & Right: 5 Sit to lyin Lying to sitting on side of be: 5 Sit to stand: 5 Chair/fyc-db-hnhdy transfer: 5 Walk 10 feet: 5 Walk 50 feet with two turns: 5 Walk 150 feet: 5 PT Envelope Maker Goals Detention Goals PT Envelope Maker Goals Time Frame: Mar 05, 2020 Roll Left & Right (QC): 6 Sit to Lying (QC): 6 Lying-Sitting on Side/Bed(QC): 6 Sit to Stand (QC): 6 Chair/Ssk-ks-Ztvub Xfer(QC): 6 Toilet Transfer (QC): 6 Car Transfer (QC): 6 Does the Patient Walk: Yes Walk 10 feet (QC): 6 Walk 50ft with 2 Turns (QC): 6 Walk 150 ft (QC): 6 Walking 10ft on Uneven Surface: 6 1 Step (curb) (QC): 4 4 Steps (QC): 4 12 Steps (QC): 4 Picking up an Object (QC): 4 Wheel 50 feet with 2 turns (QC: 9 Wheel 150 feet: 9 PT Plan Treatment/Plan Treatment Plan: Continue Plan of Care Treatment Plan: Bed Mobility, Education, Functional Activity Jean, Functional Strength, Group Therapy, Gait, Safety, Therapeutic Exercise, Transfers Treatment Duration: Mar 05, 2020 Frequency: At least 5 of 7 days/Wk (IRF) Estimated Hrs Per Day: 1.5 hours per day Patient and/or Family Agrees t: Yes Safety Risks/Education Patient Education: Gait Training, Transfer Techniques, Steps, Correct Positioning, Safety Issues Teaching Recipient: Patient Teaching Methods: Demonstration, Discussion Response to Teaching: Verbalize Understanding, Return Demonstration Time/GCodes Time In: 1400 Time Out: 1445 Total Billed Treatment Time: 45 Total Billed Treatment 1, FA x2 (30m), Ex (15m) EVELIA VALERIO SHIPPING LEAD PERSON Feb 18, 2020 14:48
[2020-02-18 18:23] VITALS: BP 98/61
[2020-02-18] MEDS: TAMSULOSIN 0.4 MG (FLOMAX) CAP PO SCH (20:37)
[2020-02-18] MEDS: LACTOBACILLUS ACIDOPHILUS (PROBIOTIC) CAPSULE PO SCH (20:37)
[2020-02-18] MEDS: SIMvastatin 10 MG (ZOCOR) TAB PO SCH (20:37)
[2020-02-19 05:36] VITALS: BP 123/66
--- NOTE | 2020-02-19 06:42 | PM&R Progress Note ---
Subjective HPI/CC On Admission Date Seen by Provider: Feb 19, 2020 Time Seen by Provider: 10:00 Subjective/Events-last exam Pt wants to go home tomorrow Doing very well Ambulating well Overallhaving no problems with delaying DC for tomorrow Checked meds and labs Conferred with RN Reviewed therapy notes Review of Systems General: Fatigue, Malaise Neurological: Weakness Objective Exam Vital Signs Vital Signs Date Time Temp Pulse Resp B/P (MAP) Pulse Ox O2 Delivery O2 Flow Rate FiO2 02/19/20 17:24 36.2 87 16 107/58 (74) 98 Room Air Capillary Refill : Less Than 3 Seconds General Appearance: WD/WN, Chronically ill, Mild Distress HEENT: PERRL/EOMI Neck: Full Range of Motion, Normal Inspection, Supple Respiratory: Chest Non Tender, Lungs Clear, Normal Breath Sounds, No Accessory Muscle Use, No Respiratory Distress Cardiovascular: Regular Rate, Rhythm, No Edema, No Gallop, No JVD, Normal Peripheral Pulses, Systolic Murmur Gastrointestinal: Normal Bowel Sounds, Soft Rectal: Deferred Back: Normal Inspection, No CVA Tenderness, No Vertebral Tenderness Extremity: Normal Capillary Refill, Normal Inspection, Non Tender, No Calf Tenderness, No Pedal Edema Neurologic/Psychiatric: Alert, Oriented x3, Normal Mood/Affect, fibreglass laminator II-XII Norm as Tested, Abnormal Gait, Motor Weakness (generalized legs greater than arms ) Skin: Normal Color, Warm/Dry Lymphatic: No Adenopathy Results/Procedures Lab Patient resulted labs reviewed. FIM Transfers Therapy Code Descriptions/Definitions Functional [place] Measure: 0=Not Assessed/NA 4=Minimal Assistance 1=Total Assistance 5=Supervision or Setup 2=Maximal Assistance 6=Modified [place] 3=Moderate Assistance 7=Complete IndependenceSCALE: Activities may be completed with or without assistive devices. 6-Jlvhtqisuz-stiljhy completes the activity by him/herself with no assistance from a helper. 5-Set-up or Clean-up Assistance-helper sets up or cleans up; patient completes activity. [place] assists only prior to or following the activity. 4-Supervision or Touching Assistance-helper provides verbal cues and/or touching/steadying and/or contact guard assistance as patient completes activity. Assistance may be provided throughout the activity or intermittently. 3-Partial/Moderate Assistance-helper does LESS THAN HALF the effort. [place] lif ts, holds or supports trunk or limbs, but provides less than half the effort. 2-Substantial/Maximal Assistance-helper does MORE THAN HALF the effort. [place] lifts or holds trunk or limbs and provides more than half the effort. 6-Bwaaxmeht-joofow does ALL the effort. Patient does none of the effort to complete the activity. Or, the assistance of 2 or more helpers is required for the patient to complete the activity. If activity was not attempted, code reason: 7-Patient Refused. 9-Not Applicable-not attempted and the patient did not perform the activity before the current illness, exacerbation or injury. 10-Not Attempted due to Environmental Limitations-(lack of equipment, weather restraints, etc.). 88-Not Attempted due to Medical Conditions or Safety Concerns. Roll Left to Right (QC): 5 Sit to Lying (QC): 5 Sit to Stand (QC): 4 Chair/Nwg-ns-Zidsf Xfer(QC): 5 Car Transfer (QC): 4 Gait Training Does the Patient Walk?: Yes Distance: 150 Walk 10 feet (QC): 4 Walk 50 ft with 2 Turns(QC): 4 Walk 150 ft (QC): 4 Walking 10ft/uneven surface-QC: 4 Gait Persons Needed: 1 Gait Assistive Device: FWW Wheelchair Training Does the Pt Use a Wheelchair?: Yes Wheel 50 ft with 2 turns (QC): 6 Wheel 150 ft (QC): 6 Type of Wheelchair: Manual Stair Training Stair Training: Handrails/: 1 handrail #of Steps: 4 1 Step (curb) (QC): 4 4 Steps (QC): 4 12 Steps (QC): 88 Stairs: Pattern: Step to Balance Picking up an Object (QC): 88 ADL-Treatment Eating (QC): 4 (Pt is IND with eating, though requires cues for eating/ drinking per nursing over weekend. ) Oral Hygiene (QC): 7 (denies this date. ) Bathing Location: L Arm, R Arm, L Upper Leg, R Upper Leg, L Lower Leg (including foot), R Lower Leg (including foot), Chest, Abdomen, Buttocks, Perineal Area Shower/Bathe Self (QC): 4 (Pt SBA with use of gb and 2WW to shower transfer. Pt denies doffing pants until shower warm. Pt stands to doff, closes curtain, then doffs in stance. SBA in shower, cues to sit for safety. ) Upper Body Dressing (QC): 6 (gathers and dons with IND.) Lower Body Dressing (QC): 4 (gathers and dons with SBA/ cues for safety and energy conservations. ) On/Off Footwear (QC): 4 (SBA as pt dons slippers in stance/ balancing on 1 foot while donning opposite, use of gb for balance during this task. Pt does not sit for safety with cues, continues in stance with SBA) Toileting Hygiene (QC): 4 (SBA during bottom hygiene in shower. ) Toilet Transfer (QC): 4 (SBA) Assessment/Plan Assessment and Plan Assess & Plan/Chief Complaint Assessment: Severe debility Falls Dementia? on SLUMS by ST Valve replacement status HTN Orthostatic hypotension CRI Anemia of kidney disease Hypokalemia Plan: Home meds addressed per PCP Fall risk Monitor BP closely Pain control 02/14/20: Replaced Potassium per Dr. Barrientos Maintain therapies in order to discharge home with Patient appears to be very chronically ill and debilitated prognosis guarded mcc 02/15/20: Doing well [facility] stable Potassium tolerated 02/16/20: Increase PO nutrition Increase activity DC home soon if able DNR ordered placed 02/17/20: Check labs in am Maintain potassium supplement Increase PO caloric intake 02/18/20: DC planning Monitor BP Potassium tolerated 02/19/20: Discharge plan for tomorrow Ambulating well Over all doing much better (1) Debility Status: Acute (2) Delirium Status: Resolved Resolution Date/Time: 02/14/20 @ 11:06 (3) Advanced age Status: Chronic (4) Falls frequently Status: Chronic (5) Heart valve replaced Status: Chronic (6) Hypertension Qualifiers: Hypertension type: essential hypertension Qualified Codes: I10 - Essential (primary) hypertension (7) Orthostatic hypotension Status: Chronic (8) Acute kidney injury superimposed on chronic kidney disease Status: Acute (9) T2DM (type 2 diabetes mellitus) Status: Chronic Qualifiers: Diabetes mellitus [place] insulin use: without mcc use Diabetes mellitus complication status: without complication Qualified Codes: E11.9 - Type 2 diabetes mellitus without complications (10) Anemia Status: Chronic Qualifiers: Anemia type: iron deficiency Iron deficiency anemia type: other iron deficiency Qualified Codes: D50.8 - Other iron deficiency anemias (11) HTN (hypertension) (12) Hypokalemia SANJANA KOWALSKI DO Feb 19, 2020 06:42
--- NOTE | 2020-02-19 06:49 | Progress Note ---
Subjective Subjective Date Seen by Provider: Feb 19, 2020 Pt repeatedly told staff yesterday that he just wants to go home and has been unmotivated to perform therapy stating that his will do most of it and take care of him at home. He understands and agrees at times that he needs to get stronger to be able to help his at home, but is still insistent on going home. He has had issues with his blood pressure dropping when he stands that has also limited his progress in therapy. Pt is able to use a wheelchair sufficiently for use at home as an secondary option to a four wheeled walker. Review of Systems General: Fatigue, Malaise HEENT: No Head Aches, No Visual Changes, No Sinus Congestion Pulmonary: No Dyspnea, No Cough Cardiovascular: No: Chest Pain, Palpitations, Edema Gastrointestinal: No: Nausea, Vomiting, Abdominal Pain, Diarrhea, Constipation Genitourinary: No Dysuria Musculoskeletal: No: leg pain Neurological: Weakness, Incoordination All Other Systems Reviewed All Other Systems Reviewed: Yes Objective Exam Vital Signs Vital Signs - First Documented 02/13/20 10:57 Temp 36.4 Pulse 94 Resp 18 B/P (MAP) 104/58 Pulse Ox 95 O2 Delivery Room Air Capillary Refill : Less Than 3 Seconds General Appearance: WD/WN, Chronically ill, Mild Distress Eyes: Bilateral Eye Normal Inspection, Bilateral Eye PERRL, Bilateral Eye EOMI HEENT: PERRL/EOMI Neck: Full Range of Motion, Normal Inspection, Supple Respiratory: Chest Non Tender, Lungs Clear, Normal Breath Sounds, No Accessory Muscle Use, No Respiratory Distress Cardiovascular: Regular Rate, Rhythm, No Edema, No Gallop, No JVD, Normal Peripheral Pulses, Systolic Murmur Gastrointestinal: Normal Bowel Sounds, Soft Rectal: Deferred Back: Normal Inspection, No CVA Tenderness, No Vertebral Tenderness Extremity: Normal Capillary Refill, Normal Inspection, Non Tender, No Calf T enderness, No Pedal Edema Neurologic/Psychiatric: Alert, Oriented x3, Normal Mood/Affect, commercial management accountant II-XII Norm as Tested, Abnormal Gait, Motor Weakness (generalized legs greater than arms ) Skin: Normal Color, Warm/Dry Lymphatic: No Adenopathy Results Lab Laboratory Tests 02/18/20 12:02: Glucometer 106 02/18/20 17:31: Glucometer 120H 02/18/20 20:16: Glucometer 110 02/19/20 05:11: Glucometer 100 Assessment/Plan Assessment/Plan Assessment and Plan DEBILITY -CONTINUE OT/PT/SPEECH -SMALL IMPROVEMENTS WITH PROGRESS LIMITED BY ORTHOSTATIC HYPOTENSION -MONITOR DELIRIUM -IMPROVED ANEMIA -MONITOR HGB/HCT -CONTINUE ORAL IRON SUPPLEMENTATION TYPE 2 DIABETES MELLITUS -CONTINUE PIOGLITAZONE 45MG DAILY -MONITOR BLOOD GLUCOSE HYPERTENSION -MONITOR ORTHOSTATIC HYPOTENSION -ENCOURAGE FLUIDS -CONTINUE STAND WITH ASSIST -MONITOR Problems: (1) Debility (2) Delirium (3) Advanced age (4) Falls frequently (5) Heart valve replaced (6) Hypertension Qualifiers: Qualified Codes: I10 - Essential (primary) hypertension (7) Orthostatic hypotension (8) Acute kidney injury superimposed on chronic kidney disease (9) T2DM (type 2 diabetes mellitus) Qualifiers: Qualified Codes: E11.9 - Type 2 diabetes mellitus without complications (10) Anemia Qualifiers: Qualified Codes: D50.8 - Other iron deficiency anemias (11) HTN (hypertension) (12) Hypokalemia Clinical Quality Measures DVT/VTE Risk/Contraindication: Risk Factor Score Per Nursin RFS Level Per Nursing on Admit: 2=Moderate CASIMIRO MITCHELL MED STUDEN Feb 19, 2020 06:49
[2020-02-19] MEDS: PIOGLITAZONE 30MG (ACTOS) TAB PO SCH (07:36)
[2020-02-19] MEDS: FERROUS SULF 325 MG (IRON) TAB PO SCH (07:36)
--- NOTE | 2020-02-19 09:00 | Physical Therapy Daily Note ---
PT Daily Note-Current Subjective Pt in bed upon arrival and agrees to tx. Pt more motivated to perform exercises. Mental Status Patient Orientation: Person, Place, Time, Situation Transfers SCALE: Activities may be completed with or without assistive devices. 8-Ykflvkiagj-rpotawy completes the activity by him/herself with no assistance from a helper. 5-Set-up or Clean-up Assistance-helper sets up or cleans up; patient completes activity. [place] assists only prior to or following the activity. 4-Supervision or Touching Assistance-helper provides verbal cues and/or touching/steadying and/or contact guard assistance as patient completes activity. Assistance may be provided throughout the activity or intermittently. 3-Partial/Moderate Assistance-helper does LESS THAN HALF the effort. [place]ison lifts, holds or supports trunk or limbs, but provides less than half the effort. 2-Substantial/Maximal Assistance-helper does MORE THAN HALF the effort. [place] lifts or holds trunk or limbs and provides more than half the effort. 2-Ewtonxlfq-iholsr does ALL the effort. Patient does none of the effort to complete the activity. Or, the assistance of 2 or more helpers is required for the patient to complete the activity. If activity was not attempted, code reason: 7-Patient Refused. 9-Not Applicable-not attempted and the patient did not perform the activity before the current illness, exacerbation or injury. 10-Not Attempted due to Environmental Limitations-(lack of equipment, weather restraints, etc.). 88-Not Attempted due to Medical Conditions or Safety Concerns. Lying to Sitting/Side of Bed(Q: 5 Sit to Stand (QC): 4 Gait Training Does the Patient Walk?: Yes Distance: 150 Walk 10 feet (QC): 4 Walk 50 ft with 2 Turns(QC): 4 Walk 150 ft (QC): 4 Gait Persons Needed: 1 Gait Assistive Device: FWW Pt amb from room to gym, going between chairs and tables. Pt amb from gym around unit approx 150' with FWW followed by WC. Wheelchair Training Does the Pt Use a Wheelchair?: Yes Type of Wheelchair: Manual Exercises Seated Therapy Exercises: Long arc quads, Glut set Seated Reps: 15 Standing: Hip Abduction, Hamstring curls, Heel/toe raises, Marching Standing Reps: 15 NuStep Minutes: 10 NuStep Workload: 6 Treatments Pt amb from room to gym and BP was taken reading 104/63. Pt performed NuStep followed by standing exercises at // bars. Pt stated he felt lightheaded and BP was taken 3 times each readinst: 102/66, 2nd: 104/56, 3rd: 108/62. Pt performed seated exercises then amb around unit. Pt returned to room in recliner. Pt BP taken a final time reading 120/71. Pt left with all needs met, call light in hand. Assessment Current Status: Good Progress Pt activity limited d/t orthostatic hypotension. Pt seemed more motivated today. PT Short Term Goals Short Term Goals Time Frame: Feb 20, 2020 Roll Left & Right: 5 Sit to lyin Lying to sitting on side of be: 5 Sit to stand: 5 Chair/zai-wd-rbwgt transfer: 5 Walk 10 feet: 5 Walk 50 feet with two turns: 5 Walk 150 feet: 5 PT Care Home Goals Director Of Materials Goals PT Care Home Goals Time Frame: Mar 05, 2020 Roll Left & Right (QC): 6 Sit to Lying (QC): 6 Lying-Sitting on Side/Bed(QC): 6 Sit to Stand (QC): 6 Chair/Efd-sz-Ubimj Xfer(QC): 6 Toilet Transfer (QC): 6 Car Transfer (QC): 6 Does the Patient Walk: Yes Walk 10 feet (QC): 6 Walk 50ft with 2 Turns (QC): 6 Walk 150 ft (QC): 6 Walking 10ft on Uneven Surface: 6 1 Step (curb) (QC): 4 4 Steps (QC): 4 12 Steps (QC): 4 Picking up an Object (QC): 4 Wheel 50 feet with 2 turns (QC: 9 Wheel 150 feet: 9 PT Plan Treatment/Plan Treatment Plan: Continue Plan of Care Treatment Plan: Bed Mobility, Education, Functional Activity Jean, Functional Strength, Group Therapy, Gait, Safety, Therapeutic Exercise, Transfers Treatment Duration: Mar 05, 2020 Frequency: At least 5 of 7 days/Wk (IRF) Estimated Hrs Per Day: 1.5 hours per day Patient and/or Family Agrees t: Yes Safety Risks/Education Patient Education: Gait Training, Correct Positioning, Safety Issues Teaching Recipient: Patient Teaching Methods: Demonstration, Discussion Response to Teaching: Verbalize Understanding, Return Demonstration Time/GCodes Time In: 800 Time Out: 900 Total Billed Treatment Time: 60 Total Billed Treatment 1, Ex x2 (30m), FA (15m), GT (15m) LUIS FELIPE MCGRAW GRAINING PRESS OPERATOR Feb 19, 2020 09:00
[2020-02-19] MEDS: KCL 20 MEQ TAB (K-DUR) PO SCH ×2 (09:45→17:49)
[2020-02-19] MEDS: SENNA W/DOCUSATE (SENOKOT S) TABLET PO SCH ×2 (09:45→20:31)
[2020-02-19] MEDS: PANTOPRAZOLE 20 MG TABLET (PROTONIX) PO SCH (09:45)
[2020-02-19] MEDS: ASPIRIN E.C. 81 MG (ECOTRIN) TAB PO SCH ×2 (09:45→20:31)
[2020-02-19] MEDS: VITAMIN E 180 MG (400 UNITS) CAP PO SCH (09:46)
[2020-02-19] MEDS: DICLOFENAC 1% GEL 100 GM (VOLTAREN) TUBE TP SCH ×4 (09:47→20:35)
[2020-02-19] MEDS: polyethylene glycoL POWDER 17 GM (MIRALAX) PACK PO SCH ×2 (09:52→20:35)
--- NOTE | 2020-02-19 10:08 | Occupational Ther Daily Note ---
OT Current Status-Daily Note Subjective 0900: Pt seen in recliner chair. Pt readily agreeable to therapy, stating, "What do I need to do to get home?" Pt is educated on safety measures during showering and endurance/ balance activities that can be addressed prior to home d/c. Pt agrees to shower. Pt denies pain, denies lightheaded/ dizzy through session. 1255: Pt seen post-lunch. Pt alert/ awake. Pt agrees to OT tx session. ADL-Treatment Therapy Code Descriptions/Definitions Functional [place] Measure: 0=Not Assessed/NA 4=Minimal Assistance 1=Total Assistance 5=Supervision or Setup 2=Maximal Assistance 6=Modified [place] 3=Moderate Assistance 7=Complete IndependenceSCALE: Activities may be completed with or without assistive devices. 6-Lgbnpqeimm-dcbbxyj completes the activity by him/herself with no assistance from a helper. 5-Set-up or Clean-up Assistance-helper sets up or cleans up; patient completes activity. [place]iley assists only prior to or following the activity. 4-Supervision or Touching Assistance-helper provides verbal cues and/or touching/steadying and/or contact guard assistance as patient completes activity. Assistance may be provided throughout the activity or intermittently. 3-Partial/Moderate Assistance-helper does LESS THAN HALF the effort. Dailey lifts, holds or supports trunk or limbs, but provides less than half the effort. 2-Substantial/Maximal Assistance-helper does MORE THAN HALF the effort. Dailey lifts or holds trunk or limbs and provides more than half the effort. 0-Nsuhgfbnh-ldgdwr does ALL the effort. Patient does none of the effort to complete the activity. Or, the assistance of 2 or more helpers is required for the patient to complete the activity. If activity was not attempted, code reason: 7-Patient Refused. 9-Not Applicable-not attempted and the patient did not perform the activity before the current illness, exacerbation or injury. 10-Not Attempted due to Environmental Limitations-(lack of equipment, weather restraints, etc.). 88-Not Attempted due to Medical Conditions or Safety Concerns. Eating (QC): 6 Oral Hygiene (QC): 7 (denies oral rinse, states, "Later.") Bathing Location: L Arm, R Arm, L Upper Leg, R Upper Leg, L Lower Leg (including foot), R Lower Leg (including foot), Chest, Abdomen, Buttocks, Perineal Area Shower/Bathe Self (QC): 4 (SBA throughout. Pt educated prior to shower about recent BP measures and safety within wet/ slick shower- pt educated to sit as much as possible, to doff LE dressing in sit, and utilize gbs. Pt agrees, completes without safety cues this shower.) Upper Body Dressing (QC): 6 (gathers and dons) Lower Body Dressing (QC): 4 (SBA- pt educated on energy conservation and breathing techniques for LB dressing task. Pt understands min energy conservation task, completing briefs/ pants/ socks, then standing to don over hips and stand pivot to w/c with success. Pt requires continued cues through LB dressing for breathing technique- pt ceases breath in bending, requiring max cues. Pt then SOB in sitting upright. Pt able to return demonstrate breathing technique with max cueing.) On/Off Footwear: 4 (Completes with cues for breathing.) Toileting Hygiene (QC): 4 (SBA) Toilet Transfer (QC): 4 (SBA) Other Treatment 0900: Pt agreeable to shower, pt utilizes 2WW to ambulate to shower. Pt places hands on w/c once in bathroom, requires cues to maintain hands on walker and to take with him to shower. Pt places one hand on walker and drags to shower. Pt educated on proper placement inside of walker and safety. Pt abides by safety measures with initial cueing start of session during showering/ dressing. Pt able to return demonstrate energy conservation measures with min cues and breathing techniques with max cues during LB dressing. Pt's 02 99% post- showering, BP unable to be assessed with vitals machine. Pt denies lightheaded/ dizzy, requests to stay in room rather than gym. Pt completes standing UE theraband ex with CGA and 2WW in front of pt for support- 10 reps bilaterally of shoulder extension and back pulls. Pt sits to complete 10 reps bilaterally of horizontal abduction and horizontal adduction bilaterally (10 reps each). Pt left in recliner with LE's elevated, all needs met, call light in reach, chair alarm on. 1255: Pt seen in bed. Pt states desire for bathroom, supine to sit with SBA. Pt sit to stand SBA, ambulates to toilet with 2WW and CGA. Toilet transfer with SBA. pt notifies when done. Pt agreeable to therapy gym, transfers to w/c and pushed to gym. Pt completes arm bike with 5min arm bike ex (mod intensity) to address UE fx strength. Pt returns to room in w/c, returns to chair with SBA, all needs met, call light in reach. Pt's chair alarm on, food placed in front of pt. Pt requests food warmed up- completed and pt initiates feeding. Education OT Patient Education: Correct positioning, Energy conservation, Exercise program, Home exercise program, Modified ADL techniques, Purpose of tx/functiona l activities, Safety issues Teaching Recipient: Patient Teaching Methods: Demonstration, Discussion Response to Teaching: Verbalize Understanding, Return Demonstration, Reinforcement Needed OT Short Term Goals Short Term Goals Time Frame: Feb 20, 2020 Upper body dressin Lower body dressin Putting on/taking off footwear: 6 OT Detention Goals Sales Promotion Coordinator Goals Time Frame: Feb 27, 2020 Eating (QC): 6 Oral Hygiene (QC): 6 Toileting Hygiene (QC): 6 Shower/Bathe Self (QC): 6 Upper Body Dressing (QC): 6 Lower Body Dressing (QC): 6 On/Off Footwear (QC): 6 Additional Goals: 1-Demonstrate ADL Tasks, 2-Verbalize Understanding, 3- ImproveStrength/Jean 1=Demonstrate adherence to instructed precautions during ADL tasks. 2=Patient will verbalize/demonstrate understanding of assistive devices/modifications for ADL. 3=Patient will improve strength/tolerance for activity to enable patient to perform ADL's. OT Education/Plan Problem List/Assessment Assessment: Decreased Activ Tolerance, Decreased Safety Aware, Decreased UE Strength, Impaired Funct Balance, Impaired I ADL's, Impaired Self-Care Skills Discharge Recommendations Plan/Recommendations: Continue POC Therapy Discharge Recommendati: 24 Hour Supervision, Home & Family Treatment Plan/Plan of Care Treatment,Training & Education: Yes Patient would benefit from OT for education, treatment and training to promote independence in ADL's, mobility, safety and/or upper extremity function for ADL's. Plan of Care: ADL Retraining, Caregiver Training, Concurrent Therapy, Functional Mobility, Group Exercise/Act as Ind, UE Funct Exercise/Act, UE Neuromus Re-Ed/Coord Treatment Duration: Feb 27, 2020 Frequency: At least 5 of 7 days/Wk (IRF) Estimated Hrs Per Day: 1.5 hours per day Rehab Potential: Fair Time/GCodes Start Time: 09:00 (1255) Stop Time: 10:00 (1315) Total Time Billed (hr/min): 80 Billed Treatment Time [id number]: 1, ADL 3 (45), EX (15) [id number]: 1, EX (20) FERMIN REID OTR Feb 19, 2020 10:08
--- NOTE | 2020-02-19 13:45 | Physical Therapy Daily Note ---
PT Daily Note-Current Subjective Pt in recliner upon arrival, pt unmotivated to do activity but with encouragement agrees to exercises in recliner. Mental Status Patient Orientation: Person, Place, Time, Situation Transfers SCALE: Activities may be completed with or without assistive devices. 1-Mcbsfpnsmm-gwjgypg completes the activity by him/herself with no assistance from a helper. 5-Set-up or Clean-up Assistance-helper sets up or cleans up; patient completes activity. [place] assists only prior to or following the activity. 4-Supervision or Touching Assistance-helper provides verbal cues and/or touching/steadying and/or contact guard assistance as patient completes activity. Assistance may be provided throughout the activity or intermittently. 3-Partial/Moderate Assistance-helper does LESS THAN HALF the effort. [place] lifts, holds or supports trunk or limbs, but provides less than half the effort. 2-Substantial/Maximal Assistance-helper does MORE THAN HALF the effort. [place] lifts or holds trunk or limbs and provides more than half the effort. 9-Hkuouwcss-yigslw does ALL the effort. Patient does none of the effort to complete the activity. Or, the assistance of 2 or more helpers is required for the patient to complete the activity. If activity was not attempted, code reason: 7-Patient Refused. 9-Not Applicable-not attempted and the patient did not perform the activity before the current illness, exacerbation or injury. 10-Not Attempted due to Environmental Limitations-(lack of equipment, weather restraints, etc.). 88-Not Attempted due to Medical Conditions or Safety Concerns. Exercises Supine Ex: Ankle pumps, Quad Set, Glut sets, Heel Slides, Straight leg raise, Hip abd/add Supine Reps: 12 Seated Therapy Exercises: Long arc quads, Hip flexion Seated Reps: 12 Treatments Pt in recliner, stated he didn't want to get out of recliner and performed exercises in recliner. Pt left with all needs met, call light in hand. Assessment Current Status: Good Progress Pt unmotivated to do activity. Pt limited d/t orthostatic hypotension. PT Short Term Goals Short Term Goals Time Frame: Feb 20, 2020 Roll Left & Right: 5 Sit to lyin Lying to sitting on side of be: 5 Sit to stand: 5 Chair/ayk-pl-dgils transfer: 5 Walk 10 feet: 5 Walk 50 feet with two turns: 5 Walk 150 feet: 5 PT Assisted Goals Assisted Goals PT Light Bulb Tester Goals Time Frame: Mar 05, 2020 Roll Left & Right (QC): 6 Sit to Lying (QC): 6 Lying-Sitting on Side/Bed(QC): 6 Sit to Stand (QC): 6 Chair/Yxh-qw-Sxbaj Xfer(QC): 6 Toilet Transfer (QC): 6 Car Transfer (QC): 6 Does the Patient Walk: Yes Walk 10 feet (QC): 6 Walk 50ft with 2 Turns (QC): 6 Walk 150 ft (QC): 6 Walking 10ft on Uneven Surface: 6 1 Step (curb) (QC): 4 4 Steps (QC): 4 12 Steps (QC): 4 Picking up an Object (QC): 4 Wheel 50 feet with 2 turns (QC: 9 Wheel 150 feet: 9 PT Plan Problem List Problem List: Safety Treatment/Plan Treatment Plan: Continue Plan of Care Treatment Plan: Bed Mobility, Education, Functional Activity Jean, Functional Strength, Group Therapy, Gait, Safety, Therapeutic Exercise, Transfers Treatment Duration: Mar 05, 2020 Frequency: At least 5 of 7 days/Wk (IRF) Estimated Hrs Per Day: 1.5 hours per day Patient and/or Family Agrees t: Yes Safety Risks/Education Patient Education: Correct Positioning, Safety Issues Teaching Recipient: Patient Teaching Methods: Demonstration, Discussion Response to Teaching: Verbalize Understanding, Return Demonstration Time/GCodes Time In: 1330 Time Out: 1345 Total Billed Treatment Time: 15 Total Billed Treatment 1, Ex LUIS FELIPE MCGRAW PATIENT SERVICES SPECIALIST Feb 19, 2020 13:45
--- NOTE | 2020-02-19 14:06 | Speech Therapy Daily Note ---
Speech Daily Progress Note Subjective Date Seen by Provider: Feb 19, 2020 Time Seen by Provider: 00:30 Patient was sitting up in recliner watching television. He was alert and interacted well this date. Objective Patient completed safety awareness scenarios he may encounter upon his return home with 85% given minimal cuing. Assessment Assessment Current Status: Good Progress Treatment Plan Continue Plan of Care Speech Short Term Goals Short Term Goals Short Term Goals 1) Patient will complete memory tasks related to his daily needs at 90% or greater with minimal cuing. 2) Patient will complete safety awareness tasks related to his daily needs at 90% or greater with minimal cuing. 3) Patient will complete problem solving tasks related to his daily needs at 90% or greater with minimal cuing. Speech Shelter Goals Shelter Goals Patient will improve cognitive-communication necessary for safety and daily living tasks with minimal assist. Speech-Plan Patient/Family Goals Patient/Family Goals: Patient plans on returning to his home upon discharge. Treatment Plan Speech Therapy Treatment Plan: Continue Plan of Care Treatment Duration: Feb 22, 2020 Frequency: 5 times per week Estimated Hrs Per Day: .5 hour per day Rehab Potential: Fair Barriers to Learning: Patient's recent medical status Pt/Family Agrees to Plan: Yes Safety Risks/Education Teaching Recipient: Patient Teaching Methods: Demonstration, Discussion Response to Teaching: Verbalize Understanding, Return Demonstration Education Topics Provided: Continued safety and communication of wants/needs Time Speech Therapy Time In: 10:00 Speech Therapy Time Out: 10:30 Total Billed Time: 30 Billed Treatment Time 1MIKAYLA BETHANIA ST Feb 19, 2020 14:06
[2020-02-19 17:24] VITALS: BP 107/58
[2020-02-19] MEDS: SIMvastatin 10 MG (ZOCOR) TAB PO SCH (20:31)
[2020-02-19] MEDS: LACTOBACILLUS ACIDOPHILUS (PROBIOTIC) CAPSULE PO SCH (20:31)
[2020-02-19] MEDS: TAMSULOSIN 0.4 MG (FLOMAX) CAP PO SCH (20:31)
[2020-02-20 05:33] VITALS: BP 118/63
[2020-02-20] MEDS ORDERED: POTA10TA36 PO (05:47)
--- NOTE | 2020-02-20 05:48 | D/C HH Face to Face Order ---
D/C Face to Face Orders Reconcile Patient Problems Problems Reviewed?: Yes Instructions for [place] [facility] Patient Instructions/FollowUp: Dr Barrientos in 1 week Physician to follow Patient: Floyd Discharge Diet for Home: No Restrictions Patient Problems: Severe debility Goals for Patient: Regain strength Patient Data-Allergies,Ht & Wt Patient Allergies: Coded Allergies: No Known Drug Allergies (Unverified , 07/13/17) Home Health Need/Face to Face Date of Face to Face: Feb 20, 2020 Clinical Findings: Generalized weakness and fatigue, Instability, Muscle weakness, Unsteady gait I have seen Pt [id number]: Yes Discharged To: Home Diagnosis/Conditions: Debility Patient is Homebound due to: CognItive deficits, Fara fall risk due to instabilty, Muscle weakness Homebound Status Due to the above stated illness, injury or surgical procedure (medical condition or diagnosis) and associated clinical findings, the patient is homebound because of his/her inability to leave home except with aid of a supportive device and/or person AND leaving the home requires a considerable and taxing effort or is medically contraindicated. Pt req the following assistanc: Walker Home Health Nursing Orders Home Health Services Order: Nursing Services, Historiography Professor-Evaluate & Treat, Physical Therapy-Evaluate & Treat Certify Stmt I certify that this patient is under my care and that I, a nurse practitioner or a physician; a patent legal assistant working with me, had a face to face encounter that - meets the physician face to face encounter requirements with this patient as dated. SANJANA KOWALSKI DO Feb 20, 2020 05:48
--- NOTE | 2020-02-20 05:49 | Discharge Summary ---
Diagnosis/Chief Complaint Date of Admission Feb 13, 2020 at 10:35 Date of Discharge Discharge Date: Feb 20, 2020 Discharge Diagnosis Assessment: Severe debility Falls Dementia? on SLUMS by ST Valve replacement status HTN Orthostatic hypotension CRI Anemia of kidney disease Hypokalemia Plan: Home meds addressed per PCP Fall risk Monitor BP closely Pain control 02/14/20: Replaced Potassium per Dr. 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: Doing well Cognitive deficit noted at SLUMS Labs stable Potassium tolerated 02/16/20: Increase PO nutrition Increase activity DC home soon if able DNR ordered placed 02/17/20: Check labs in am Maintain potassium supplement Increase PO caloric intake 02/18/20: DC planning Monitor BP Potassium tolerated 02/19/20: Discharge plan for tomorrow Ambulating well Over all doing much better Discharge Summary Discharge Physical Examination Allergies: Coded Allergies: No Known Drug Allergies (Unverified , 07/13/17) Vitals & I&Os Vital Signs Date Time Temp Pulse Resp B/P (MAP) Pulse Ox O2 Delivery O2 Flow Rate FiO2 02/20/20 16:49 36.2 93 18 118/63 97 Room Air General Appearance: Alert, Oriented X3 Respiratory: Clear to Auscultation Hospital Course Was the Problem List Reviewed?: Yes Hospital course: Pt had an uneventful hospital course for seven days after he was admitted from [facility] after significant delirium, pneumonia and a small bowel obstruction, Pt overall did well he was able to participate in therapy although motivation was minimal, he was overall doing very well and wished to go home, noted cognitive deficit with a SLUM score of 2230 will monitor closely and I did send in 10 mEQ of potassium that he did require here Labs (last 24 hrs) Laboratory Tests 02/14/20 06:17: White Blood Count 4.5, Red Blood Count 3.85L, Hemoglobin 11.2L, Hematocrit 34L, Mean Corpuscular Volume 89, Mean Corpuscular Hemoglobin 29, Mean Corpuscular Hemoglobin Concent 33, Red Cell Distribution Width 16.4H, Platelet Count 313, Mean Platelet Volume 9.3, Neutrophils (%) (Auto) 70, Lymphocytes (%) (Auto) 15, Monocytes (%) (Auto) 14H, Eosinophils (%) (Auto) 2, Basophils (%) (Auto) 0, Neutrophils # (Auto) 3.1, Lymphocytes # (Auto) 0.7L, Monocytes # (Auto) 0.6, Eosinophils # (Auto) 0.1, Basophils # (Auto) 0.0, Sodium Level 139, Potassium Level 3.0L, Chloride Level 102, Carbon Dioxide Level 26, Anion Gap 11, Blood Urea Nitrogen 10, Creatinine 1.25, Estimat Glomerular Filtration Rate 55, BUN/Creatinine Ratio 8, Glucose Level 137H, Calcium Level 8.3L, Corrected Calcium 9.2, Total Bilirubin 1.0, Aspartate Amino Transf (AST/SGOT) 23, Alanine Aminotransferase (ALT/SGPT) 26, Alkaline Phosphatase 121, Total Protein 5.6L, Albumin 2.9L 02/15/20 16:15: Glucometer 171H 02/15/20 21:23: Glucometer 114H 02/16/20 04:37: White Blood Count 5.2, Red Blood Count 3.76L, Hemoglobin 10.9L, Hematocrit 34L, Mean Corpuscular Volume 89, Mean Corpuscular Hemoglobin 29, Mean Corpuscular Hemoglobin Concent 33, Red Cell Distribution Width 16.5H, Platelet Count 278, Mean Platelet Volume 9.3, Neutrophils (%) (Auto) 69, Lymphocytes (%) (Auto) 17, Monocytes (%) (Auto) 13H, Eosinophils (%) (Auto) 1, Basophils (%) (Auto) 0, Neutrophils # (Auto) 3.6, Lymphocytes # (Auto) 0.9L, Monocytes # (Auto) 0.7, Eosinophils # (Auto) 0.1, Basophils # (Auto) 0.0, Sodium Level 139, Potassium Level 3.2L, Chloride Level 103, Carbon Dioxide Level 25, Anion Gap 11, Blood Urea Nitrogen 9, Creatinine 1.20, Estimat Glomerular Filtration Rate 58, BUN/Creatinine Ratio 8, Glucose Level 121H, Calcium Level 8.1L, Corrected Calcium 9.1, Total Bilirubin 0.8, Aspartate Amino Transf (AST/SGOT) 18, Alanine Aminotransferase (ALT/SGPT) 17, Alkaline Phosphatase 110, Total Protein 5.2L, Albumin 2.8L, Neutrophils % (Manual) 76, Lymphocytes % (Manual) 12, Monocytes % (Manual) 10, Eosinophils % (Manual) 1, Band Neutrophils 1, Anisocytosis SLIGHT, Magnesium Level 2.1, Iron Level 32L, Total Iron Binding Capacity 193L, U nsaturated Iron Binding Capacity 161, Transferrin % Saturation 17, Ferritin 202.6 02/16/20 11:29: Glucometer 123H 02/16/20 16:21: Glucometer 204H 02/16/20 20:11: Glucometer 103 02/17/20 06:02: Glucometer 125H 02/17/20 11:58: Glucometer 128H 02/17/20 16:37: Glucometer 207H 02/18/20 04:43: White Blood Count 5.9, Red Blood Count 3.91L, Hemoglobin 11.2L, Hematocrit 35L, Mean Corpuscular Volume 90, Mean Corpuscular Hemoglobin 29, Mean Corpuscular Hemoglobin Concent 32, Red Cell Distribution Width 16.9H, Platelet Count 252, Mean Platelet Volume 9.6, Neutrophils (%) (Auto) 72, Lymphocytes (%) (Auto) 16, Monocytes (%) (Auto) 11, Eosinophils (%) (Auto) 1, Basophils (%) (Auto) 0, Neutrophils # (Auto) 4.3, Lymphocytes # (Auto) 0.9L, Monocytes # (Auto) 0.6, Eosinophils # (Auto) 0.1, Basophils # (Auto) 0.0, Sodium Level 140, Potassium Level 3.9, Chloride Level 106, Carbon Dioxide Level 24, Anion Gap 10, Blood Urea Nitrogen 9, Creatinine 1.40H, Estimat Glomerular Filtration Rate 48, BUN/Cr eatinine Ratio 6, Glucose Level 114H, Calcium Level 8.3L, Corrected Calcium 9.3, Total Bilirubin 0.8, Aspartate Amino Transf (AST/SGOT) 18, Alanine Aminotransferase (ALT/SGPT) 14, Alkaline Phosphatase 119, Total Protein 5.2L, Albumin 2.8L 02/18/20 12:02: Glucometer 106 02/18/20 17:31: Glucometer 120H 02/18/20 20:16: Glucometer 110 02/19/20 05:11: Glucometer 100 02/19/20 11:02: Glucometer 142H 02/19/20 16:07: Glucometer 121H 02/19/20 20:24: Glucometer 112H 02/20/20 06:17: Glucometer 101 02/20/20 11:15: Glucometer 112H Pending Labs Laboratory Tests 02/14/20 06:17: White Blood Count 4.5, Red Blood Count 3.85, Hemoglobin 11.2, Hematocrit 34, Mean Corpuscular Volume 89, Mean Corpuscular Hemoglobin 29, Mean Corpuscular Hemoglobin Concent 33, Red Cell Distribution Width 16.4, Platelet Count 313, Mean Platelet Volume 9.3, Neutrophils (%) (Auto) 70, Lymphocytes (%) (Auto) 15, Monocytes (%) (Auto) 14, Eosinophils (%) (Auto) 2, Basophils (%) (Auto) 0, Neutrophils # (Auto) 3.1, Lymphocytes # (Auto) 0.7, Monocytes # (Auto) 0.6, Eosinophils # (Auto) 0.1, Basophils # (Auto) 0.0, Sodium Level 139, Potassium Level 3.0, Chloride Level 102, Carbon Dioxide Level 26, Anion Gap 11, Blood Urea Nitrogen 10, Creatinine 1.25, Estimat Glomerular Filtration Rate 55, BUN/Creatinine Ratio 8, Glucose Level 137, Calcium Level 8.3, Corrected Calcium 9.2, Total Bilirubin 1.0, Aspartate Amino Transf (AST/SGOT) 23, Alanine Aminotransferase (ALT/SGPT) 26, Alkaline Phosphatase 121, Total Protein 5.6, Albumin 2.9 02/15/20 16:15: Glucometer 171 02/15/20 21:23: Glucometer 114 02/16/20 04:37: White Blood Count 5.2, Red Blood Count 3.76, Hemoglobin 10.9, Hematocrit 34, Me an Corpuscular Volume 89, Mean Corpuscular Hemoglobin 29, Mean Corpuscular Hemoglobin Concent 33, Red Cell Distribution Width 16.5, Platelet Count 278, Mean Platelet Volume 9.3, Neutrophils (%) (Auto) 69, Lymphocytes (%) (Auto) 17, Monocytes (%) (Auto) 13, Eosinophils (%) (Auto) 1, Basophils (%) (Auto) 0, Neutrophils # (Auto) 3.6, Lymphocytes # (Auto) 0.9, Monocytes # (Auto) 0.7, E osinophils # (Auto) 0.1, Basophils # (Auto) 0.0, Sodium Level 139, Potassium Level 3.2, Chloride Level 103, Carbon Dioxide Level 25, Anion Gap 11, Blood Urea Nitrogen 9, Creatinine 1.20, Estimat Glomerular Filtration Rate 58, BUN/Creatinine Ratio 8, Glucose Level 121, Calcium Level 8.1, Corrected Calcium 9.1, Total Bilirubin 0.8, Aspartate Amino Transf (AST/SGOT) 18, Alanine Aminot ransferase (ALT/SGPT) 17, Alkaline Phosphatase 110, Total Protein 5.2, Albumin 2.8, Neutrophils % (Manual) 76, Lymphocytes % (Manual) 12, Monocytes % (Manual) 10, Eosinophils % (Manual) 1, Band Neutrophils 1, Anisocytosis SLIGHT, Magnesium Level 2.1, Iron Level 32, Total Iron Binding Capacity 193, Unsaturated Iron Binding Capacity 161, Transferrin % Saturation 17, Ferritin 202.6 02/16/20 11:29: Glucometer 123 02/16/20 16:21: Glucometer 204 02/16/20 20:11: Glucometer 103 02/17/20 06:02: Glucometer 125 02/17/20 11:58: Glucometer 128 02/17/20 16:37: Glucometer 207 02/18/20 04:43: White Blood Count 5.9, Red Blood Count 3.91, Hemoglobin 11.2, Hematocrit 35, Mean Corpuscular Volume 90, Mean Corpuscular Hemoglobin 29, Mean Corpuscular Hemoglobin Concent 32, Red Cell Distribution Width 16.9, Platelet Count 252, Mean Platelet Volume 9.6, Neutrophils (%) (Auto) 72, Lymphocytes (%) (Auto) 16, Monocytes (%) (Auto) 11, Eosinophils (%) (Auto) 1, Basophils (%) (Auto) 0, Neutrophils # (Auto) 4.3, Lymphocytes # (Auto) 0.9, Monocytes # (Auto) 0.6, Eosinophils # (Auto) 0.1, Basophils # (Auto) 0.0, Sodium Level 140, Potassium Level 3.9, Chloride Level 106, Carbon Dioxide Level 24, Anion Gap 10, Blood Urea Nitrogen 9, Creatinine 1.40, Estimat Glomerular Filtration Rate 48, BUN/Creatinine Ratio 6, Glucose Level 114, Calcium Level 8.3, Corrected Calcium 9.3, Total Bilirubin 0.8, Aspartate Amino Transf (AST/SGOT) 18, Alanine Aminotransferase (ALT/SGPT) 14, Alkaline Phosphatase 119, Total Protein 5.2, Albumin 2.8 02/18/20 12:02: Glucometer 106 02/18/20 17:31: Glucometer 120 02/18/20 20:16: Glucometer 110 02/19/20 05:11: Glucometer 100 02/19/20 11:02: Glucometer 142 02/19/20 16:07: Glucometer 121 02/19/20 20:24: Glucometer 112 02/20/20 06:17: Glucometer 101 02/20/20 11:15: Glucometer 112 Discharge Home Medications: Active Scripts Active Potassium Chloride 10 Meq Tab.er.prt 10 Meq PO DAILY Reported Actos (Pioglitazone HCl) 45 Mg Tablet 45 Mg PO DAILY Voltaren (Diclofenac Sodium) 100 Gm Gel..gram. 4 Gm TP QID Iron (Ferrous Sulfate, Dried) 160 Mg Tablet.er 160 Mg PO Pravastatin Sodium 10 Mg Tablet 10 Mg PO DAILY Probiotic & Acidophilus Cap (Lactobac Cmb #3/Fos/Pantethine) 1 Each Capsule 1 Each PO HS Aspirin EC (Aspirin) 81 Mg Tablet.dr 81 Mg PO BID Flomax (Tamsulosin HCl) 0.4 Mg Cap 0.4 Mg PO HS Omeprazole 20 Mg Capsule.dr 20 Mg PO DAILY Instructions to patient/family Please see electronic discharge instructions given to patient. Diagnosis/Problems Diagnosis/Problems (1) Debility Status: Acute (2) Delirium Status: Resolved Resolution Date/Time: 02/14/20 @ 11:06 (3) Advanced age Status: Chronic (4) Falls frequently Status: Chronic (5) Heart valve replaced Status: Chronic (6) Hypertension Qualifiers: Qualified Codes: I10 - Essential (primary) hypertension (7) Orthostatic hypotension Status: Chronic (8) Acute kidney injury superimposed on chronic kidney disease Status: Acute (9) T2DM (type 2 diabetes mellitus) Status: Chronic Qualifiers: Qualified Codes: E11.9 - Type 2 diabetes mellitus without complications (10) Anemia Status: Chronic Qualifiers: Qualified Codes: D50.8 - Other iron deficiency anemias (11) HTN (hypertension) Clinical Quality Measures DVT/VTE Risk/Contraindication: Risk Factor Score Per Nursin RFS Level Per Nursing on Admit: 2=Moderate SANJANA KOWALSKI DO Feb 20, 2020 05:49
[2020-02-20] MEDS: FERROUS SULF 325 MG (IRON) TAB PO SCH (06:17)
[2020-02-20] MEDS: PIOGLITAZONE 30MG (ACTOS) TAB PO SCH (06:18)
[2020-02-20] MEDS: PANTOPRAZOLE 20 MG TABLET (PROTONIX) PO SCH (09:39)
[2020-02-20] MEDS: ASPIRIN E.C. 81 MG (ECOTRIN) TAB PO SCH (09:39)
[2020-02-20] MEDS: KCL 20 MEQ TAB (K-DUR) PO SCH (09:39)
[2020-02-20] MEDS: SENNA W/DOCUSATE (SENOKOT S) TABLET PO SCH (09:39)
[2020-02-20] MEDS: VITAMIN E 180 MG (400 UNITS) CAP PO SCH (09:39)
[2020-02-20] MEDS: polyethylene glycoL POWDER 17 GM (MIRALAX) PACK PO SCH (09:39)
[2020-02-20] MEDS: DICLOFENAC 1% GEL 100 GM (VOLTAREN) TUBE TP SCH (09:40)
--- NOTE | 2020-02-20 10:58 | Physical Therapy Daily Note ---
PT Daily Note-Current Subjective Pt in recliner and agrees to tx. Pt is eager to go home. Mental Status Patient Orientation: Person, Place, Time, Situation Transfers SCALE: Activities may be completed with or without assistive devices. 9-Wcfyvkzqnh-purzkek completes the activity by him/herself with no assistance from a helper. 5-Set-up or Clean-up Assistance-helper sets up or cleans up; patient completes activity. [place] assists only prior to or following the activity. 4-Supervision or Touching Assistance-helper provides verbal cues and/or touching/steadying and/or contact guard assistance as patient completes activity. Assistance may be provided throughout the activity or intermittently. 3-Partial/Moderate Assistance-helper does LESS THAN HALF the effort. [place] lifts, holds or supports trunk or limbs, but provides less than half the effort. 2-Substantial/Maximal Assistance-helper does MORE THAN HALF the effort. [place] lifts or holds trunk or limbs and provides more than half the effort. 1-Zyzieqwse-tiohqo does ALL the effort. Patient does none of the effort to complete the activity. Or, the assistance of 2 or more helpers is required for the patient to complete the activity. If activity was not attempted, code reason: 7-Patient Refused. 9-Not Applicable-not attempted and the patient did not perform the activity before the current illness, exacerbation or injury. 10-Not Attempted due to Environmental Limitations-(lack of equipment, weather restraints, etc.). 88-Not Attempted due to Medical Conditions or Safety Concerns. Roll Left & Right (QC): 6 Sit to Lying (QC): 6 Lying to Sitting/Side of Bed(Q: 6 Sit to Stand (QC): 6 Chair/Mou-tb-Ilrff Xfer(QC): 6 Toilet Transfer (QC): 6 Car Transfer (QC): 6 Gait Training Does the Patient Walk?: Yes Distance: 150 Walk 10 feet (QC): 6 Walk 50 ft with 2 Turns(QC): 6 Walk 150 ft (QC): 6 Walking 10ft/uneven surface-QC: 6 Gait Assistive Device: FWW Wheelchair Training Does the Pt Use a Wheelchair?: No Stair Training Stair Training: Handrails/: 1 handrail #of Steps: 4 1 Step (curb) (QC): 6 4 Steps (QC): 6 12 Steps (QC): 6 Stairs: Pattern: Step to Balance Picking up an Object (QC): 6 Treatments Pt sit to stand from recliner, transfers to bed and performs bed mobility. Pt amb in hallway, over uneven surface, and toward car for a car transfer. Pt amb to stairs, completes 4 steps x3, and amb back to room. Pt returns to recliner and was left with all needs met, call light in hand. Assessment Current Status: Good Progress Pt overall increased strength, endurance, and safety. PT Short Term Goals Short Term Goals Time Frame: Feb 20, 2020 Roll Left & Right: 5 Sit to lyin Lying to sitting on side of be: 5 Sit to stand: 5 Chair/vyy-lu-obslg transfer: 5 Walk 10 feet: 5 Walk 50 feet with two turns: 5 Walk 150 feet: 5 PT Longterm Goals Longterm Goals PT Longterm Goals Time Frame: Mar 05, 2020 Roll Left & Right (QC): 6 Sit to Lying (QC): 6 Lying-Sitting on Side/Bed(QC): 6 Sit to Stand (QC): 6 Chair/Xvf-un-Bfpgn Xfer(QC): 6 Toilet Transfer (QC): 6 Car Transfer (QC): 6 Does the Patient Walk: Yes Walk 10 feet (QC): 6 Walk 50ft with 2 Turns (QC): 6 Walk 150 ft (QC): 6 Walking 10ft on Uneven Surface: 6 1 Step (curb) (QC): 4 4 Steps (QC): 4 12 Steps (QC): 4 Picking up an Object (QC): 4 Wheel 50 feet with 2 turns (QC: 9 Wheel 150 feet: 9 PT Plan Treatment/Plan Treatment Plan: Continue Plan of Care Treatment Plan: Bed Mobility, Education, Functional Activity Jean, Functional Strength, Group Therapy, Gait, Safety, Therapeutic Exercise, Transfers Treatment Duration: Mar 05, 2020 Frequency: At least 5 of 7 days/Wk (IRF) Estimated Hrs Per Day: 1.5 hours per day Patient and/or Family Agrees t: Yes Safety Risks/Education Patient Education: Gait Training, Transfer Techniques, Steps, Correct Positioning, Safety Issues Teaching Recipient: Patient Teaching Methods: Discussion Response to Teaching: Verbalize Understanding Time/GCodes Time In: 1030 Time Out: 1045 Total Billed Treatment Time: 15 Total Billed Treatment 1, LUIS FELIPE MURRAY MARKETING INFORMATION MANAGER Feb 20, 2020 10:58
--- NOTE | 2020-02-20 11:09 | Therapy Team Discharge Summary ---
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 Pt admits with QCs as follows: eating 6, UB dressing 5, LB dressing 3, footwear 4, toilet hygiene 4. Pt has sc, tub/ shower, gbs at home. Pt and OT work towards higher fx IND with ADL tasks through the following skilled therapeutic activities: safety training, ADL retraining, UE functional strengthening/ endurance with HEP and functional balance/ ambulation for safe d/c. Pt limited by orthostatic hypotension (though does not c/o lightheadedness), limited motivation for therapy, and difficult carry over from tx to tx session. Pt d/c's home with d/c of OT, no AD recommendations as pt as sc/ gbs per pt. Pt d/c's with final QCs as: eating 6, showering 4, UB dress 6, LB dress 4, footwear 4, and toilet hygiene 4. Decreased Activ Tolerance, Decreased Safety Aware, Decreased UE Strength, Impaired Funct Balance, Impaired I ADL's, Impaired Self-Care Skills PT Assistant Superintendent For Curriculum Goals Assisted Goals PT Assisted Goals Time Frame: Mar 05, 2020 Roll Left to Right (QC): 6 Sit to Lying (QC): 6 Lying-Sitting on Side/Bed(QC): 6 Sit to Stand (QC): 6 Chair/Fsn-dm-Sckpu Xfer(QC): 6 Car Transfer (QC): 6 Does the Patient Walk: Yes Walk 10 feet (QC): 6 Walk 10ft-Uneven Surface(QC): 6 Walk 50ft with 2 Turns (QC): 6 Walk 150 ft (QC): 6 Wheel 50 feet with 2 turns (QC: 9 1 Step (curb) (QC): 4 4 Steps (QC): 4 12 Steps (QC): 4 Picking up an Object (QC): 4 OT Assisted Goals Assisted Goals Time Frame: Feb 27, 2020 Eating (QC): 6 Oral Hygiene (QC): 6 Shower/Bathe Self (QC): 6 Upper Body Dressing (QC): 6 Lower Body Dressing (QC): 6 On/Off Footwear (QC): 6 Toileting Hygiene (QC): 6 Toilet/Commode Transfer (QC): 6 Additional Goals: 1-Demonstrate ADL Tasks, 2-Verbalize Understanding, 3- ImproveStrength/Jean 1=Demonstrate adherence to instructed precautions during ADL tasks. 2=Patient will verbalize/demonstrate understanding of assistive devices/m odifications for ADL. 3=Patient will improve strength/tolerance for activity to enable patient to perform ADL's. Speech Assistant Superintendent For Curriculum Goals Assisted Goals Patient will improve cognitive-communication necessary for safety and daily living tasks with minimal assist. FERMIN REID OTR Feb 20, 2020 11:09
--- NOTE | 2020-02-20 15:34 | NUR ---
CM/SS DISCHARGE Patient was discharged to home with his spouse and family support. HHC: Coordinated with their choice agency, [facility]. Agency will begin services tomorrow. Faxed continuum of care information including discharge instructions and orders. DME: Arranged FWW through family choice agency, [facility]. Item was delivered to patient hospital room for their convenience. Unit RN aware of all plans.
[2020-02-20 16:49] VITALS: BP 118/63
== END 2020-02-20 12:45 | disposition home health service (06) | DRG 93 ==
PROVIDERS: ADMIT Internal Medicine; ATTEND Internal Medicine
DX: G72.81 Critical illness myopathy (principal); I12.9 Hypertensive chronic kidney disease with stage 1 through stage 4 chronic kidney disease, or unspecified chronic kidney disease; N18.3 Chronic kidney disease, stage 3 (moderate); E11.22 Type 2 diabetes mellitus with diabetic chronic kidney disease; E11.40 Type 2 diabetes mellitus with diabetic neuropathy, unspecified; Z91.81 History of falling; D63.1 Anemia in chronic kidney disease; Z66 Do not resuscitate; E87.6 Hypokalemia; E78.5 Hyperlipidemia, unspecified; K21.9 Gastro-esophageal reflux disease without esophagitis; F03.90 Unspecified dementia, unspecified severity, without behavioral disturbance, psychotic disturbance, mood disturbance, and anxiety; I95.1 Orthostatic hypotension; Z95.4 Presence of other heart-valve replacement; I25.2 Old myocardial infarction; Z87.891 Personal history of nicotine dependence
CPT/HCPCS: 36415; 80053; 82728; 82962; 83540; 83735; 85007; 85025; 85027

== ENCOUNTER 2020-03-07 12:25 | Outpatient (RCR) | payer MEDICARE, OTHER ==
[~2020-03-07 12:25] MED LIST changes: +ASPI-1238 PO; -ASPI-983 PO; +DICL100G18 TP; +FERR160T5 PO; +PIOG45TA7 PO; +POTA10TA36 PO; +VIT E; +ZOLP6.252 PO; -ZOLP6.2525 PO; +ZOLP6.2538 PO
[2020-04-16] MEDS ORDERED: ZOLP6.252 PO (13:55)
[2020-04-16] MEDS ORDERED: APIX5TAB PO (13:55)
[2020-04-16] MEDS ORDERED: CHOL100045 PO (13:55)
[2020-04-16] MEDS ORDERED: FERR325T18 PO (13:55)
[2020-04-16] MEDS ORDERED: MULT-1136 PO (13:55)
[2020-04-16] MEDS ORDERED: MIRA50TA PO (13:55)
[2020-04-16] MEDS ORDERED: DILT-27 PO (13:55)
[2020-04-19] MEDS ORDERED: PANT40TA52 PO (10:08)
[2020-04-19] MEDS ORDERED: AMOX-358 PO (12:47)
== END 2020-06-05 | disposition still patient (30) ==
LOC: CARD 12:25
PROVIDERS: ATTEND Internal Medicine Interventional Cardiology
DX: I34.0 Nonrheumatic mitral (valve) insufficiency (principal); I48.0 Paroxysmal atrial fibrillation; I51.7 Cardiomegaly; Z95.2 Presence of prosthetic heart valve
CPT/HCPCS: 93306

== ENCOUNTER 2020-04-15 17:13 | Inpatient (IN) | payer MEDICARE, OTHER ==
[2020-04-15] VITALS (9 sets, daily range): BP systolic 105–127; BP diastolic 57–70
[~2020-04-15] VITALS: Ht 182.8 cm; Wt 101.0 kg
--- NOTE | 2020-04-15 17:25 | ED General ---
General Stated Complaint: FALL;HEAD INJURY Source of Information: Patient, EMS History of Present Illness Date Seen by Provider: Apr 15, 2020 Time Seen by Provider: 17:18 Initial Comments Patient is a 84-year-old male who presents to the emergency room by EMS after a fall today. Patient states that he was walking in the kitchen and he is not sure what caused him to fall but he did fall down and hit his head. Patient denies any complaints of injury at this time. He states he has been feeling poorly for about the last 2 weeks his appetite has been diminished. He states he occasionally drinks a little sip of water and has some Pepsi. Patient is noted to be diabetic he has recently been diagnosed with A. fib. Patient was in the hospital approximately 6 weeks ago with pneumonia and sepsis. According to EMS the stated to them that he has been having some increasing swelling over the past 2 weeks that is been significant. Patient denies being short of breath. He denies chest pain, abdominal pain. No problems with bowel or bladder. He denies any recent fevers, chills, cough, congestion. He is alert and oriented at this time. Patient is hard of hearing. Associated Systoms: Denies Symptoms Allergies and Home Medications Allergies Coded Allergies: No Known Drug Allergies (Unverified , 07/13/17) Home Medications Apixaban 5 Mg Tablet, 5 MG PO BID, (Reported) Aspirin 81 Mg Tablet.dr, 81 MG PO BID, (Reported) Cholecalciferol (Vitamin D3) 25 Mcg Tablet, 25 MCG PO DAILY, (Reported) Diltiazem HCl 120 Mg Cap.er.24h, 120 MG PO DAILY, (Reported) Ferrous Sulfate 325 Mg Tablet, 325 MG PO DAILY, (Reported) Lactobac Cmb #3/Fos/Pantethine 1 Each Capsule, 1 EACH PO HS, (Reported) Mirabegron 50 Mg Tab.er.24h, 50 MG PO HS, (Reported) Multivitamin 1 Each Tablet, 1 EACH PO DAILY, (Reported) Omeprazole 20 Mg Capsule.dr, 20 MG PO DAILY, (Reported) Pioglitazone HCl 45 Mg Tablet, 45 MG PO DAILY, (Reported) Pravastatin Sodium 10 Mg Tablet, 10 MG PO HS, (Reported) Tamsulosin HCl 0.4 Mg Cap, 0.4 MG PO HS, (Reported) Zolpidem Tartrate 6.25 Mg Tab.mphase, 6.25 MG PO HS, (Reported) Patient Home Medication List Home Medication List Reviewed: Yes Review of Systems Review of Systems Constitutional: no symptoms reported Respiratory: No cough, No short of breath, No wheezing Cardiovascular: No palpitations; other (Swelling bilateral lower extremities and his face) Gastrointestinal: No abdominal pain Genitourinary: no symptoms reported Musculoskeletal: no symptoms reported Skin: no symptoms reported All Other Systems Reviewed Negative Unless Noted: Yes Past Stcwhwr-Openkc-Omvlhp Hx Patient Social History Type Used: Cigarettes Former Smoker, Quit: Feb 12, 1990 2nd Hand Smoke Exposure: No Recent Hopitalizations: Yes (1 month ago) Immunizations Up To Date Tetanus Booster (TDap): Unknown Date of Pneumonia Vaccine: Feb 13, 2016 Seasonal Allergies Seasonal Allergies: No Past Medical History Surgeries: Yes (BOVINE AORTIC VALVE REPLACEMENT; CARDIAC CATHS; APPY; KNEE REPLACEMENT) Appendectomy, Joint Replacement, Orthopedic, Valve Replacement Respiratory: Yes (PNA with Sepsis december of 2019) Pneumonia Currently Using CPAP: No Currently Using BIPAP: No Cardiac: Yes (MILD [place] -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;CARDIAC CATHS-NO INTERVENTION;BOVINE AORTIC RAKEL) High Cholesterol, Valvular Heart Disease Neurological: Yes (HOSPITALIZATION RELATED DELIRIUM) Sexually Transmitted Disease: No HIV/AIDS: No Genitourinary: Yes Prostate Problems, Epi/Hypospadias Gastrointestinal: Yes Gastroesophageal Reflux Musculoskeletal: Yes (KNEE REPLACEMENT) Arthritis Endocrine: Yes Diabetes, 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) Hearing Impairment: Hard of Hearing, Bilateral Hearing Aide Cancer: Yes Skin Did You Recieve Any Treatments: Yes What Type of Treatment Did You: Surgical Intervention Psychosocial: No Integumentary: No Blood Disorders: No Family Medical History Alcoholism G8 BROTHER Arthritis 19 MOTHER Completed stroke 19 FATHER Diabetes mellitus 19 MOTHER Hypertension 19 FATHER 19 MOTHER Myocardial infarction G8 SISTER Heart Disease, CAD Over 55 Years Old, Diabetes, Hypertension, Stroke Physical Exam Vital Signs Vital Signs - First Documented 04/15/20 17:13 Temp 36.9 Pulse 87 Resp 18 B/P (MAP) 104/65 (78) Pulse Ox 100 O2 Delivery Nasal Cannula O2 Flow Rate 2.00 Capillary Refill : Height, Weight, BMI Height: '" Weight: lbs. oz. kg; 28.17 BMI Method: General Appearance: No Apparent Distress, WD/WN Eyes: Bilateral Eye Normal Inspection HEENT: PERRL/EOMI, Moist Mucous Membranes Neck: Full Range of Motion, Non Tender Respiratory: Chest Non Tender, Lungs Clear, Normal Breath Sounds Cardiovascular: Diastolic Murmur (Left lower sternal border), Irregularly Irregular, Other (Valvular click is heard) Gastrointestinal: Normal Bowel Sounds, Non Tender, Soft Extremity: Normal Capillary Refill, Pedal Edema Neurologic/Psychiatric: Alert, Oriented x3, No Motor/Sensory Deficits, Normal Mood/Affect, shop manager II-XII Norm as Tested Skin: Normal Color, Warm/Dry Progress/Results/Core Measures Suspected Sepsis SIRS Temperature: Pulse: Respiratory Rate: Laboratory Tests 04/17/20 03:06: White Blood Count 11.7H 04/18/20 02:32: White Blood Count 7.7 04/19/20 03:45: White Blood Count 7.4 Blood Pressure / Mean: Laboratory Tests 04/17/20 03:06: Creatinine 1.09, Platelet Count 233 04/18/20 02:32: Creatinine 1.21, Platelet Count 239 04/19/20 03:45: Creatinine 1.20, Platelet Count 250 Results/Orders Lab Results Laboratory Tests Test 04/17/20 10:45 04/17/20 11:29 04/17/20 16:09 04/17/20 20:18 Range/Units Coronavirus (COVID-19)(PCR) Negative Negative Lab Scanned Report Transfusion Reaction Form [id number] Glucometer 148 H 118 H 70-110 MG/DL Test 04/18/20 02:32 04/18/20 11:36 04/18/20 15:35 04/18/20 20:16 Range/Units White Blood Count 7.7 4.3-11.0 10^3/uL Red Blood Count 2.76 L 4.30-5.52 10^6/uL Hemoglobin 7.7 L 13.3-17.7 g/dL Hematocrit 25 L 40-54 % Mean Corpuscular Volume 89 80-99 fL Mean Corpuscular Hemoglobin 28 25-34 pg Mean Corpuscular Hemoglobin Concent 31 L 32-36 g/dL Red Cell Distribution Width 19.2 H 10.0-14.5 % Platelet Count 239 130-400 10^3/uL Mean Platelet Volume 10.2 9.0-12.2 fL Immature Granulocyte % (Auto) 1 % Neutrophils (%) (Auto) 80 H 42-75 % Lymphocytes (%) (Auto) 8 L 12-44 % Monocytes (%) (Auto) 9 0-12 % Eosinophils (%) (Auto) 2 0-10 % Basophils (%) (Auto) 1 0-10 % Neutrophils # (Auto) 6.1 1.8-7.8 10^3/uL Lymphocytes # (Auto) 0.6 L 1.0-4.0 10^3/uL Monocytes # (Auto) 0.7 0.0-1.0 10^3/uL Eosinophils # (Auto) 0.1 0.0-0.3 10^3/uL Basophils # (Auto) 0.0 0.0-0.1 10^3/uL Immature Granulocyte # (Auto) 0.1 0.0-0.1 10^3/uL Sodium Level 140 135-145 MMOL/L Potassium Level 3.6 3.6-5.0 MMOL/L Chloride Level 108 H 98-107 MMOL/L Carbon Dioxide Level 22 21-32 MMOL/L Anion Gap 10 5-14 MMOL/L Blood Urea Nitrogen 32 H 7-18 MG/DL Creatinine 1.21 0.60-1.30 MG/DL Estimat Glomerular Filtration Rate 57 BUN/Creatinine Ratio 26 Glucose Level 109 H 70-105 MG/DL Calcium Level 8.3 L 8.5-10.1 MG/DL Phosphorus Level 3.1 2.3-4.7 MG/DL Magnesium Level 2.0 1.6-2.4 MG/DL Glucometer 148 H 106 98 70-110 MG/DL Test 04/19/20 03:45 Range/Units White Blood Count 7.4 4.3-11.0 10^3/uL Red Blood Count 2.85 L 4.30-5.52 10^6/uL Hemoglobin 7.8 L 13.3-17.7 g/dL Hematocrit 26 L 40-54 % Mean Corpuscular Volume 90 80-99 fL Mean Corpuscular Hemoglobin 27 25-34 pg Mean Corpuscular Hemoglobin Concent 30 L 32-36 g/dL Red Cell Distribution Width 18.8 H 10.0-14.5 % Platelet Count 250 130-400 10^3/uL Mean Platelet Volume 10.0 9.0-12.2 fL Immature Granulocyte % (Auto) 0 % Neutrophils (%) (Auto) 81 H 42-75 % Lymphocytes (%) (Auto) 9 L 12-44 % Monocytes (%) (Auto) 8 0-12 % Eosinophils (%) (Auto) 2 0-10 % Basophils (%) (Auto) 0 0-10 % Neutrophils # (Auto) 6.0 1.8-7.8 10^3/uL Lymphocytes # (Auto) 0.7 L 1.0-4.0 10^3/uL Monocytes # (Auto) 0.6 0.0-1.0 10^3/uL Eosinophils # (Auto) 0.1 0.0-0.3 10^3/uL Basophils # (Auto) 0.0 0.0-0.1 10^3/uL Immature Granulocyte # (Auto) 0.0 0.0-0.1 10^3/uL Sodium Level 139 135-145 MMOL/L Potassium Level 3.2 L 3.6-5.0 MMOL/L Chloride Level 106 98-107 MMOL/L Carbon Dioxide Level 22 21-32 MMOL/L Anion Gap 11 5-14 MMOL/L Blood Urea Nitrogen 27 H 7-18 MG/DL Creatinine 1.20 0.60-1.30 MG/DL Estimat Glomerular Filtration Rate 58 BUN/Creatinine Ratio 23 Glucose Level 111 H 70-105 MG/DL Calcium Level 8.3 L 8.5-10.1 MG/DL Phosphorus Level 3.5 2.3-4.7 MG/DL Magnesium Level 1.9 1.6-2.4 MG/DL My Orders Medications Given in ED Vital Signs/I&O 04/18/20 04/18/20 04/18/20 04/18/20 18:53 19:00 19:00 19:50 Pulse 79 79 Resp 21 B/P (MAP) 110/62 (78) O2 Delivery Room Air Room Air Room Air 04/18/20 04/18/20 04/18/20 04/18/20 19:53 20:00 21:00 22:00 Temp 36.2 Pulse 87 88 86 78 Resp 20 17 20 37 B/P (MAP) 110/62 (78) 97/62 (74) 113/76 (88) 117/67 (84) Pulse Ox 96 98 93 99 O2 Delivery Room Air Room Air Room Air Room Air 04/18/20 04/19/20 04/19/20 04/19/20 23:00 00:00 00:00 00:02 Temp 36.2 Pulse 77 85 Resp 24 17 B/P (MAP) 116/65 (82) 116/59 (78) Pulse Ox 99 98 O2 Delivery Room Air Room Air Room Air 04/19/20 04/19/20 04/19/20 04/19/20 01:00 01:00 02:00 03:00 Pulse 79 79 83 86 Resp 21 15 28 B/P (MAP) 112/65 (81) 113/70 (84) 99/55 (70) Pulse Ox 96 98 89 O2 Delivery Room Air Room Air Room Air 04/19/20 04/19/20 04/19/20 04/19/20 03:47 03:49 04:00 05:00 Temp 36.6 Pulse 82 86 Resp 24 15 B/P (MAP) 107/96 (100) 111/63 (79) Pulse Ox 94 96 O2 Delivery Room Air Room Air Room Air Capillary Refill : Progress Note : Time: 18:03 Progress Note Patient seen and examined by me, 84-year-old male with chief complaint of generalized weakness and a fall. Evaluation today includes a physical exam as well as laboratory studies to include CBC, Chem-7, bedside Hemoccult study, EKG, chest x-ray CT scan of the brain. Patient was found to have a hemoglobin of 4.9. Fecal occult was grossly positive for dark black stool patient was typed and crossed for 4 units 2 units to be given now and 2 units to be held. Case was discussed with Dr. OLIVA the patient's primary care doctor. She accepts the patient for admission. Case was also discussed with Dr. Campbell General Surgery who will see the patient in consultation. Patient has been made aware of the plan of care and is agreeable. ECG Initial ECG Impression Date: Apr 15, 2020 Initial ECG Impression Time: 17:22 Initial ECG Rate: 86 Initial ECG Rhythm: A Fib/Flutter Initial ECG Impression: Atrial Fibrillation Diagnostic Imaging Diagonstic Imaging: Xray, CT Plain Films/CT/US/NM/MRI: chest Comments cxr: Cardiomegaly; increased pulmonary vascular congestion noted, evidence of median sternotomy in the past, no obvious effusions CT brain: Pending at time of admission [facility] [place], [place] NAME: AGUSTÍN BARAKAT [facility] REC#: [id number] PT STATUS: ADM IN : 1935 PHYSICIAN: BOOGIE CHAVIRA MD ADMIT DATE: 04/15/20/ICU Signed Date of Exam:04/15/20 CHEST 1 VIEW, AP/PA ONLY EXAMINATION: Chest radiograph, portable AP view. DATE: 04/15/2020 6:34 PM hours. INDICATION: 84-year-old male, fall, weakness. COMPARISON: January 23, 2020. FINDINGS: There are median sternotomy wires. There is valvular hardware. Stable overall appearance of the cardiomediastinal silhouette. There is no identified pneumothorax. There is elevation of the right hemidiaphragm. There are bilateral predominantly interstitial opacities with unchanged appearance since the comparison study. IMPRESSION: 1. Grossly unchanged bilateral predominantly interstitial opacities in the lungs since January 23, 2020. This potentially may relate to pulmonary edema, atypical infection, and/or chronic lung changes. At least some components of an acute process is suspected. Dictated by: Dictated on workstation # [id number] Dict: 04/15/20 1835 Trans: 04/15/201905 CV [id number] Interpreted by: DEAN HUNT MD Electronically signed by: DEAN HUNT MD 04/15/201905 [facility] [place], [place] NAME: AGUSTÍN BARAKAT [facility] REC#: [id number] PT STATUS: ADM IN : 1935 PHYSICIAN: BOOGIE CHAVIRA MD ADMIT DATE: 04/15/20/ICU Signed Date of Exam:04/15/20 CT HEAD WO PROCEDURE: CT head without contrast. TECHNIQUE: Multiple contiguous axial images were obtained through the brain without the use of intravenous contrast. Auto Exposure Controls were utilized during the CT exam to meet ALARA standards for radiation dose reduction. INDICATION: Fall and head injury. COMPARISON: Correlation is made with prior head CT of 11/09/2008. FINDINGS: Ventricles and sulci are within normal limits. No sulcal effacement or midline shift is detected. No acute intra-axial or extra-axial hemorrhage is detected. Cisterns are patent. Visualized paranasal sinuses are clear. IMPRESSION: No acute intracranial process is detected. Dictated by: Dictated on workstation # [id number] Dict: 04/15/201829 Trans: 04/15/201854 AS6 [id number] Interpreted by: STEVE POLK MD Electronically signed by: STEVE POLK MD 04/15/201854 Departure Communication (Admissions) Time/Spoke to Admitting Phy: 17:58 Dr Oliva Time/Spoke to Consulting Phy: 18:00 Dr Campbell Impression Primary Impression: Anemia Qualified Codes: D64.9 - Anemia, unspecified Additional Impressions: GI bleed Qualified Codes: K92.2 - Gastrointestinal hemorrhage, unspecified Weakness Disposition: ADMITTED INPATIENT Condition: Stable Admissions Decision to Admit Reason: Admit from ER (General) Decision to Admit/Date: Apr 15, 2020 Time/Decision to Admit Time: 17:45 Departure-Patient Inst. Referrals: NATHANIEL OLIVA MD (PCP/Family) Primary Care Physician BOOGIE CHAVIRA MD Apr 15, 2020 17:25
[2020-04-15 17:39] LABS: MEAN PLATELET VOLUME 10.3 fL (9.0-12.2); WHITE BLOOD COUNT 7.9 10^3/uL (4.3-11.0)
[2020-04-15 17:45] LABS: HEMOGLOBIN 4.9 g/dL (13.3-17.7)
[2020-04-15 17:47] LABS: POTASSIUM 3.5 MMOL/L (3.6-5.0)
[2020-04-15 17:49] LABS: CALCIUM 7.9 MG/DL (8.5-10.1)
[2020-04-15 17:53] LABS: CREATININE SERUM 1.23 MG/DL (0.60-1.30)
[2020-04-15] MEDS ORDERED: PANTOPRAZOLE 40 MG (PROTONIX) VIAL IV ONE (18:15)
[2020-04-15] MEDS ORDERED: PANTOPRAZOLE INJECTION 200 MG in NS (IVPB) 100 ML IV SCH (18:15)
--- NOTE | 2020-04-15 18:23 | NUR ---
TYPE AND SCREEN SENT TO LAB.
--- NOTE | 2020-04-15 18:27 | Consultation - Surgery ---
EVITA NORWOOD MED STUDENT 04/15/20 1827: History of Present Illness History of Present Illness Patient Consulted On(gemini/time) 04/15/20 18:21 Date Seen by Provider: Apr 15, 2020 Time Seen by Provider: 18:10 History of Present Illness Consulted for anemia likely due to upper GI bleed. Pt is a 85 YO male presenting to the ED s/p fall. Hit the back of his head, but denies LOC or other injury. No nausea, vomiting, abdominal pain, SOB, or dizziness, but has had dark stools. Pt has history of appendectomy, valve replacement, and Afib on Eliquis. Hgb is 4.9 Allergies and Home Medications Allergies Coded Allergies: No Known Drug Allergies (Unverified , 07/13/17) Home Medications Apixaban 5 Mg Tablet, 5 MG PO BID, (Reported) Aspirin 81 Mg Tablet.dr, 81 MG PO BID, (Reported) Cholecalciferol (Vitamin D3) 25 Mcg Tablet, 25 MCG PO DAILY, (Reported) Diltiazem HCl 120 Mg Cap.er.24h, 120 MG PO DAILY, (Reported) Ferrous Sulfate 325 Mg Tablet, 325 MG PO DAILY, (Reported) Lactobac Cmb #3/Fos/Pantethine 1 Each Capsule, 1 EACH PO HS, (Reported) Mirabegron 50 Mg Tab.er.24h, 50 MG PO HS, (Reported) Multivitamin 1 Each Tablet, 1 EACH PO DAILY, (Reported) Omeprazole 20 Mg Capsule.dr, 20 MG PO DAILY, (Reported) Pioglitazone HCl 45 Mg Tablet, 45 MG PO DAILY, (Reported) Pravastatin Sodium 10 Mg Tablet, 10 MG PO HS, (Reported) Tamsulosin HCl 0.4 Mg Cap, 0.4 MG PO HS, (Reported) Zolpidem Tartrate 6.25 Mg Tab.mphase, 6.25 MG PO HS, (Reported) Past Wjwkfyg-Jqzgcf-Yarwiu Hx Patient Social History Alcohol Use: Denies Use Recreational Drug Use: No Smoking Status: Former Smoker Former Smoker, Quit: Feb 12, 1990 Type Used: Cigarettes 2nd Hand Smoke Exposure: No Recent Foreign Travel: No Contact w/Someone Who Travel: No Recent Infectious Disease Expo: No Recent Hopitalizations: Yes (1 month ago) Immunizations Up To Date Tetanus Booster (TDap): Unknown Date of Pneumonia Vaccine: Feb 13, 2016 Seasonal Allergies Seasonal Allergies: No Surgeries History of Surgeries: Yes (BOVINE AORTIC VALVE REPLACEMENT; CARDIAC CATHS; APPY; KNEE REPLACEMENT) Surgeries: Appendectomy, Joint Replacement, Orthopedic, Valve Replacement Respiratory History of Respiratory Disorde: Yes (PNA with Sepsis december of 2019) Respiratory Disorders: Pneumonia Cardiovascular History of Cardiac Disorders: Yes (MILD [place] -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;CARDIAC CATHS-NO INTERVENTION;BOVINE AORTIC RAKEL) Cardiac Disorders: Atrial Fibrillation, High Cholesterol, Valvular Heart Disease Neurological History of Neurological Disord: Yes (HOSPITALIZATION RELATED DELIRIUM) Neurological Disorders: Dementia Reproductive System Sexually Transmitted Disease: No HIV/AIDS: No Genitourinary History of Genitourinary Disor: Yes Genitourinary Disorders: Prostate Problems, Epi/Hypospadias Gastrointestinal History of Gastrointestinal Di: Yes Gastrointestinal Disorders: Gastroesophageal Reflux Musculoskeletal History of Musculoskeletal Dis: Yes (KNEE REPLACEMENT) Musculoskeletal Disorders: Arthritis Endocrine History of Endocrine Disorders: Yes Endocrine Disorders: Diabetes, Non-Insulin dep HEENT History of HEENT Disorders: Yes (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) Hearing Impairment: Hard of Hearing, Bilateral Hearing Aide Cancer History of Cancer: Yes Cancer: Skin Psychosocial History of Psychiatric Problem: No Integumentary History of Skin or Integumenta: No Blood Transfusions History of Blood Disorders: No Family Medical History Significant Family History: Heart Disease, CAD Over 55 Years Old, Diabetes, Hypertension, Stroke Family Medial History: Alcoholism G8 BROTHER Arthritis 19 MOTHER Completed stroke 19 FATHER Diabetes mellitus 19 MOTHER Hypertension 19 FATHER 19 MOTHER Myocardial infarction G8 SISTER Review of Systems-General Constitutional: No chills, No fever EENTM: No blurred vision, No double vision Respiratory: No cough, No short of breath Cardiovascular: No chest pain, No palpitations Gastrointestinal: No abdominal pain; other (dark stools) Genitourinary: No dysuria, No hematuria Musculoskeletal: No back pain, No neck pain Skin: No change in hair/nails, No rash Psychiatric/Neurological: Denies Headache; Other (no dizziness) All Other Systems Reviewed Negative Unless Noted: Yes Physical Exam-General Problems Physical Exam Vital Signs Vital Signs - First Documented 04/15/20 17:13 Temp 36.9 Pulse 87 Resp 18 B/P (MAP) 104/65 (78) Pulse Ox 100 O2 Delivery Nasal Cannula O2 Flow Rate 2.00 Capillary Refill : Less Than 3 Seconds General Appearance: WD/WN, no apparent distress Eyes: Bilateral Eye Normal Inspection, Bilateral Eye PERRL, Bilateral Eye EOMI HEENT: PERRL/EOMI, normal ENT inspection, pharynx normal, other (NC/AT) Neck: non-tender, supple, normal inspection Respiratory: chest non-tender, no respiratory distress, no accessory muscle use Cardiovascular: normal peripheral pulses, irregularly irregular, other (normal rate) Gastrointestinal: non tender, soft; No guarding, No rebound Back: normal inspection, no vertebral tenderness Extremities: non-tender, other (RLE more swollen than left) Neurologic/Psychiatric: no motor/sensory deficits, alert, normal mood/affect, other (equal document coordinator strength) Skin: warm/dry, pallor Lymphatic: no adenopathy Data Review Labs Laboratory Tests 04/15/20 17:29: White Blood Count 7.9, Red Blood Count 1.74L, Hemoglobin 4.9*L, Hematocrit 16*L, Mean Corpuscular Volume 93, Mean Corpuscular Hemoglobin 28, Mean Corpuscular Hemoglobin Concent 30L, Red Cell Distribution Width 17.5H, Platelet Count 219, Mean Platelet Volume 10.3, Sodium Level 139, Potassium Level 3.5L, Chloride Level 108H, Carbon Dioxide Level 24, Anion Gap 7, Blood Urea Nitrogen 41H, Creatinine 1.23, Estimat Glomerular Filtration Rate 56, BUN/Creatinine Ratio 33, Glucose Level 153H, Calcium Level 7.9L Assessment/Plan Assessment/Plan Assessment/Plan fall anemia dark stools admit to ICU transfuse and follow NPO Protonix IV hydration EMILIANOEMMA Kristian DO 04/16/202045: History of Present Illness History of Present Illness History of Present Illness Consult requested by Dr. OLIVA for anemia Patient is an 84-year-old male who is brought to the hospital for further evaluation. Patient states that he had a slight fall and hit the back of his head. He had no loss of consciousness and he states that it was just more of a bump. Patient reports having black stools after being on Eliquis. Patient states that he has been feeling weak and believes this is why he fell. Patient was found to have a hemoglobin of 4.9. He had a CT scan of the head that demonstrated no intracranial abnormality. Patient states that he has no abdominal pain no nausea vomiting fever sweats chills shortness of breath or chest pain. Allergies and Home Medications Allergies Coded Allergies: No Known Drug Allergies (Unverified , 07/13/17) Home Medications Apixaban 5 Mg Tablet, 5 MG PO BID, (Reported) Aspirin 81 Mg Tablet.dr, 81 MG PO BID, (Reported) Cholecalciferol (Vitamin D3) 25 Mcg Tablet, 25 MCG PO DAILY, (Reported) Diltiazem HCl 120 Mg Cap.er.24h, 120 MG PO DAILY, (Reported) Ferrous Sulfate 325 Mg Tablet, 325 MG PO DAILY, (Reported) Lactobac Cmb #3/Fos/Pantethine 1 Each Capsule, 1 EACH PO HS, (Reported) Mirabegron 50 Mg Tab.er.24h, 50 MG PO HS, (Reported) Multivitamin 1 Each Tablet, 1 EACH PO DAILY, (Reported) Omeprazole 20 Mg Capsule.dr, 20 MG PO DAILY, (Reported) Pioglitazone HCl 45 Mg Tablet, 45 MG PO DAILY, (Reported) Pravastatin Sodium 10 Mg Tablet, 10 MG PO HS, (Reported) Tamsulosin HCl 0.4 Mg Cap, 0.4 MG PO HS, (Reported) Zolpidem Tartrate 6.25 Mg Tab.mphase, 6.25 MG PO HS, (Reported) Patient Home Medication List Home Medication List Reviewed: Yes Past Npqvdpu-Qkdxiu-Iebzio Hx Reviewed Nursing Assessment Reviewed/Agree w Nursing PMH: Yes Family Medical History Significant Family History: No Pertinent Family Hx Family Medial History: Alcoholism G8 BROTHER Arthritis 19 MOTHER Completed stroke 19 FATHER Diabetes mellitus 19 MOTHER Hypertension 19 FATHER 19 MOTHER Myocardial infarction G8 SISTER Review of Systems-General Constitutional: No chills, No fever; weakness EENTM: No blurred vision, No double vision Respiratory: No cough, No short of breath Cardiovascular: No palpitations Gastrointestinal: No abdominal pain; other (dark stools) Genitourinary: No dysuria, No hematuria Musculoskeletal: No back pain, No joint pain, No neck pain Skin: No change in hair/nails, No rash Psychiatric/Neurological: Denies Headache; Other (no dizziness) All Other Systems Reviewed Negative Unless Noted: Yes (Negative excepted noted.) Physical Exam-General Problems Physical Exam General Appearance: WD/WN, no apparent distress HEENT: PERRL/EOMI, normal ENT inspection, other (NC/AT) Neck: non-tender, supple, normal inspection Respiratory: chest non-tender, no respiratory distress, no accessory muscle use Cardiovascular: normal peripheral pulses, irregularly irregular, other (normal rate) Gastrointestinal: non tender, soft; No guarding, No rebound Back: normal inspection, no CVA tenderness, no vertebral tenderness Extremities: non-tender, other (RLE more swollen than left) Neurologic/Psychiatric: supervisor hand workers II-XII nml as tested, no motor/sensory deficits, alert, normal mood/affect, oriented x 3, other (equal document coordinator strength) Skin: warm/dry, pallor Lymphatic: no adenopathy Assessment/Plan Assessment/Plan Assessment/Plan fall anemia secondary to upper gi bleed dark stools anticoagulation therapy on Eliquis ct head no acute intracranial process admit to ICU transfuse and follow hgb NPO Protonix IV hydration hold anticoagulation Supervisory-Addendum Brief Verification & Attestation Participated in pt care: history, MDM, physical Personally performed: exam, history, MDM, supervision of care Care discussed with: Medical Student Procedures: n/a Results interpretation: Verified all documentation Verification and Attestation of Medical Student E/M Service A medical student performed and documented this service in my presence. I reviewed and verified all information documented by the medical student and made modifications to such information, when appropriate. I personally performed the physical exam and medical decision making. Emma Campbell, Apr 15, 2020,20:48 EVITA NORWOOD MED STUDENT Apr 15, 2020 18:27 EMMA CAMPBELL DO Apr 16, 2020 20:46
--- NOTE | 2020-04-15 18:33 | Diagnostic Imaging Report ---
PROCEDURE: CT head without contrast. TECHNIQUE: Multiple contiguous axial images were obtained through the brain without the use of intravenous contrast. Auto Exposure Controls were utilized during the CT exam to meet ALARA standards for radiation dose reduction. INDICATION: Fall and head injury. COMPARISON: Correlation is made with prior head CT of 11/09/2008. FINDINGS: Ventricles and sulci are within normal limits. No sulcal effacement or midline shift is detected. No acute intra-axial or extra-axial hemorrhage is detected. Cisterns are patent. Visualized paranasal sinuses are clear. IMPRESSION: No acute intracranial process is detected. Dictated by: Dictated on workstation # [id number]
--- NOTE | 2020-04-15 18:34 | NUR ---
MED LIST TO CHART.
--- NOTE | 2020-04-15 18:38 | Diagnostic Imaging Report ---
EXAMINATION: Chest radiograph, portable AP view. DATE: 04/15/2020 6:34 PM hours. INDICATION: 84-year-old male, fall, weakness. COMPARISON: January 23, 2020. FINDINGS: There are median sternotomy wires. There is valvular hardware. Stable overall appearance of the cardiomediastinal silhouette. There is no identified pneumothorax. There is elevation of the right hemidiaphragm. There are bilateral predominantly interstitial opacities with unchanged appearance since the comparison study. IMPRESSION: 1. Grossly unchanged bilateral predominantly interstitial opacities in the lungs since January 23, 2020. This potentially may relate to pulmonary edema, atypical infection, and/or chronic lung changes. At least some components of an acute process is suspected. Dictated by: Dictated on workstation # [id number]
[2020-04-15] MEDS ORDERED: NS IV 500 ML 500 ML ONE (19:16)
--- NOTE | 2020-04-15 19:45 | NUR ---
RECEIVED FROM ED, 84 YEAR OLD MALE WITH DX OF G.I. BLEED. CONSENT OBTAINED FOR TRANSFUSION. PT A/O . PROTONIX DRIP AT 8 MG/HR AND TRANSFUSION OF PRBC'S STARTED AT THIS TIME
[2020-04-15] MEDS ORDERED: CATHETER FLUSH 10 ML SYR IV PRN (20:00)
[2020-04-15] MEDS ORDERED: FUROSEMIDE 40 MG/4 ML INJ (LASIX) IV SCH (20:00)
[2020-04-15] MEDS ORDERED: PANTOPRAZOLE DRIP 200 MG/NS 100 ML IV SCH ×2 (20:00)
[2020-04-15] MEDS ORDERED: NS IV 500 ML 500 ML IV SCH (20:00)
[2020-04-15 21:31] LABS: BILIRUBIN,URINE NEGATIVE (NEGATIVE); CLARITY,URINE CLOUDY; COLOR,URINE YELLOW; GLUCOSE, URINE (UA) NEGATIVE (NEGATIVE); KETONES,URINE NEGATIVE (NEGATIVE); LEUKOCYTE ESTERASE ,URINE 1+ (NEGATIVE); NITRITE,URINE NEGATIVE (NEGATIVE); PROTEIN,URINE NEGATIVE (NEGATIVE)
[2020-04-15 21:40] LABS: BACTERIA,URINE FEW /HPF
[2020-04-15] MEDS: CATHETER FLUSH 10 ML SYR IV SCH (23:47)
[2020-04-16] VITALS (30 sets, daily range): BP systolic 99–142; BP diastolic 46–110
[2020-04-16 03:38] LABS: BASOPHILS % (AUTO) 1 % (0-10); EOSINOPHILS # (AUTO) 0.1 10^3/uL (0.0-0.3); EOSINOPHILS % (AUTO) 1 % (0-10); HEMATOCRIT 21 % (40-54); LYMPHOCYTES # (AUTO) 0.7 10^3/uL (1.0-4.0); LYMPHOCYTES % (AUTO) 7 % (12-44); MEAN CORPUSCULAR HEMOGLOBIN 28 pg (25-34); MEAN CORPUSCULAR HGB CONC 32 g/dL (32-36); MEAN CORPUSCULAR VOLUME 88 fL (80-99); MEAN PLATELET VOLUME 10.3 fL (9.0-12.2); MONOCYTES # (AUTO) 0.6 10^3/uL (0.0-1.0); MONOCYTES % (AUTO) 7 % (0-12); NEUTROPHILS # (AUTO) 7.5 10^3/uL (1.8-7.8); NEUTROPHILS % (AUTO) 84 % (42-75); PLATELET COUNT 207 10^3/uL (130-400); WHITE BLOOD COUNT 8.9 10^3/uL (4.3-11.0)
[2020-04-16 03:40] LABS: HEMOGLOBIN 6.5 g/dL (13.3-17.7)
[2020-04-16 03:51] LABS: ALANINE AMINOTRANSFERASE 13 U/L (0-55); ALBUMIN 2.7 GM/DL (3.2-4.5); ALKALINE PHOSPHATASE 48 U/L (40-136); BILIRUBIN,TOTAL 1.5 MG/DL (0.1-1.0); BUN/CREATININE RATIO 41; CALCIUM 7.7 MG/DL (8.5-10.1); CARBON DIOXIDE 21 MMOL/L (21-32); CHLORIDE 110 MMOL/L (98-107); GFR ESTIMATED > 60; GLUCOSE 135 MG/DL (70-105); PHOSPHORUS 3.1 MG/DL (2.3-4.7); POTASSIUM 3.4 MMOL/L (3.6-5.0); SODIUM 140 MMOL/L (135-145); TOTAL PROTEIN 4.4 GM/DL (6.4-8.2)
--- NOTE | 2020-04-16 04:00 | Pulmonary Consultation ---
CHRISTOPHER FRANCISCO MED STUDENT 04/16/20 0400: History of Present Illness History of Present Illness Date Seen by Provider: Apr 16, 2020 Time Seen by Provider: 03:40 Date of Admission History of Present Illness Igor Glez is an 84 year old man seen today due to a GI bleed and anemia. He was seen in the ED yesterday due to a fall, he is unsure of the cause but reports he believes it could be due to his left leg, which he reports has been 'giving out' lately. He denies any weakness in that leg. In the ED he reported he had dark stools recently, and he was found to have a hgb of 4.9 and fecal occult grossly positive for dark blood. He had two units of blood transfused last night, 04/16. He denies experiencing any light-headedness, pain from his fall, CP, SOB, abdominal pain, n/v, fevers or chills. Allergies and Home Medications Allergies Coded Allergies: No Known Drug Allergies (Unverified , 07/13/17) Home Medications Aspirin 81 Mg Tablet.dr, 81 MG PO BID, (Reported) Diclofenac Sodium 100 Gm Gel..gram., 4 GM TP QID, (Reported) Lactobac Cmb #3/Fos/Pantethine 1 Each Capsule, 1 EACH PO HS, (Reported) Omeprazole 20 Mg Capsule.dr, 20 MG PO DAILY, (Reported) Pioglitazone HCl 45 Mg Tablet, 45 MG PO DAILY, (Reported) Potassium Chloride 10 Meq Tab.er.prt, 10 MEQ PO DAILY Prescribed by: SANJANA KOWALSKI on 02/20/20 0547 Pravastatin Sodium 10 Mg Tablet, 10 MG PO DAILY, (Reported) Tamsulosin HCl 0.4 Mg Cap, 0.4 MG PO HS, (Reported) Past Ybmespm-Pjtidf-Jcqplq Hx Patient Social History Alcohol Use: Denies Use Recreational Drug Use: No Smoking Status: Former Smoker Type Used: Cigarettes Former Smoker, Quit: Feb 12, 1990 2nd Hand Smoke Exposure: No Recent Foreign Travel: No Contact w/Someone Who Travel: No Recent Infectious Disease Expo: No Recent Hopitalizations: Yes (1 month ago) Immunizations Up To Date Tetanus Booster (TDap): Unknown Date of Pneumonia Vaccine: Feb 13, 2016 Seasonal Allergies Seasonal Allergies: No Past Medical History Surgeries: Yes (BOVINE AORTIC VALVE REPLACEMENT; CARDIAC CATHS; APPY; KNEE REPLACEMENT) Appendectomy, Joint Replacement, Orthopedic, Valve Replacement Respiratory: Yes (PNA with Sepsis december of 2019) Pneumonia Currently Using CPAP: No Currently Using BIPAP: No Cardiac: Yes (MILD [place] -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;CARDIAC CATHS-NO INTERVENTION;BOVINE AORTIC RAKEL) Atrial Fibrillation, High Cholesterol, Valvular Heart Disease Neurological: Yes (HOSPITALIZATION RELATED DELIRIUM) Dementia Sexually Transmitted Disease: No HIV/AIDS: No Genitourinary: Yes Prostate Problems, Epi/Hypospadias Gastrointestinal: Yes Gastroesophageal Reflux Musculoskeletal: Yes (KNEE REPLACEMENT) Arthritis Endocrine: Yes Diabetes, 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) Hearing Impairment: Hard of Hearing, Bilateral Hearing Aide Cancer: Yes Skin Did You Recieve Any Treatments: Yes What Type of Treatment Did You: Surgical Intervention Psychosocial: No Integumentary: No Blood Disorders: No Family Medical History Alcoholism G8 BROTHER Arthritis 19 MOTHER Completed stroke 19 FATHER Diabetes mellitus 19 MOTHER Hypertension 19 FATHER 19 MOTHER Myocardial infarction G8 SISTER Heart Disease, CAD Over 55 Years Old, Diabetes, Hypertension, Stroke Review of Systems Constitutional: No: Fever, Chills Eyes: No: Vision change ENT: No: Nose congestion, Throat pain Respiratory: No: Cough, Shortness of breath Cardiovascular: No: Chest Pain, Palpitations, Lt Headedness Gastrointestinal: Melena; No: Nausea, Vomiting, Abdominal Pain, Diarrhea, Constipation Genitourinary: No Dysuria, No Frequency, No Retention Musculoskeletal: No: leg pain Neurological: No: Weakness, Numbness Sepsis Event Evaluation Height, Weight, BMI Height: '" Weight: lbs. oz. kg; 30.16 BMI Method: Exam Exam Vital Signs Date Time Temp Pulse Resp B/P (MAP) Pulse Ox O2 Delivery O2 Flow Rate FiO2 04/16/20 02:01 36.6 83 17 125/60 100 Nasal Cannula 3.00 04/16/20 00:20 36.2 04/16/20 00:00 99 Nasal Cannula 3.00 04/16/20 00:00 89 121/69 (86) 100 Nasal Cannula 3.00 04/15/20 23:28 36.4 84 16 127/65 99 Nasal Cannula 3.00 04/15/20 23:08 36.2 85 21 121/62 100 Nasal Cannula 3.00 9/22/20 23:00 86 25 121/62 (81) 100 Nasal Cannula 3.00 04/15/20 22:00 81 23 123/69 (87) 100 Nasal Cannula 3.00 04/15/20 21:16 100 Nasal Cannula 3.00 04/15/20 21:00 84 18 105/66 (79) 100 Nasal Cannula 3.00 04/15/20 20:14 36.5 83 12 123/70 100 Nasal Cannula 3.00 04/15/20 20:01 36.4 83 18 127/57 100 Nasal Cannula 3.00 04/15/20 20:00 87 12 127/57 (80) 100 Nasal Cannula 3.00 04/15/20 19:46 85 04/15/20 19:45 36.4 88 16 127/57 (80) 100 Nasal Cannula 3.00 04/15/20 19:08 82 18 123/74 100 Nasal Cannula 2.00 04/15/20 17:13 36.9 87 18 104/65 (78) 100 Nasal Cannula 2.00 I & O 04/16/20 07:00 Intake Total 150 ml Balance 150 ml Height & Weight Height: '" Weight: lbs. oz. kg; 30.16 BMI Method: General Appearance: No Apparent Distress, Obese HEENT: PERRL/EOMI; No Scleral Icterus (L), No Scleral Icterus (R) Neck: Normal Inspection, Non Tender, Supple Respiratory: Chest Non Tender, Lungs Clear, Normal Breath Sounds, No Accessory Muscle Use, No Respiratory Distress Cardiovascular: No Edema, Normal Peripheral Pulses, Systolic Murmur, Irregularly Irregular Capillary Refill: Less Than 3 Seconds Peripheral Pulses: 2+ Dorsalis Pedis (R), 2+ Left Dors-Pedis (L), 2+ Radial Pulses (R), 2+ Radial Pulses (L) Gastrointestinal: non tender, soft, no organomegaly, abnormal bowel sounds (hypoactive) Extremity: Normal Capillary Refill, Normal Inspection, Non Tender, No Calf Tenderness Neurologic/Psychiatric: Alert, Oriented x3, No Motor/Sensory Deficits, Normal Mood/Affect Skin: Normal Color, Warm/Dry Results Lab Laboratory Tests 04/15/20 17:29 04/16/20 03:04 Assessment/Plan Assessment/Plan Anemia - Hgb 6.5 04/16 up from 4.9 after two units RBC - Consider transfusion of 1 unit RBC Positive fecal occult, dark stools - suspect upper GI bleed - General surgery following, NPO Hypokalemia - replace Afib - HR in 80s consistently, monitor DM - consider resuming home pioglitazone Bovine Aortic Valve Replacement MYKE CORREIA DO 04/16/20 0548: History of Present Illness History of Present Illness Time Seen by Provider: 05:42 Allergies and Home Medications Allergies Coded Allergies: No Known Drug Allergies (Unverified , 07/13/17) Home Medications Aspirin 81 Mg Tablet.dr, 81 MG PO BID, (Reported) Diclofenac Sodium 100 Gm Gel..gram., 4 GM TP QID, (Reported) Lactobac Cmb #3/Fos/Pantethine 1 Each Capsule, 1 EACH PO HS, (Reported) Omeprazole 20 Mg Capsule.dr, 20 MG PO DAILY, (Reported) Pioglitazone HCl 45 Mg Tablet, 45 MG PO DAILY, (Reported) Potassium Chloride 10 Meq Tab.er.prt, 10 MEQ PO DAILY Prescribed by: SANJANA KOWALSKI on 02/20/20 0547 Pravastatin Sodium 10 Mg Tablet, 10 MG PO DAILY, (Reported) Tamsulosin HCl 0.4 Mg Cap, 0.4 MG PO HS, (Reported) Past Laszetl-Lyewov-Gnxbsg Hx Family Medical History Alcoholism G8 BROTHER Arthritis 19 MOTHER Completed stroke 19 FATHER Diabetes mellitus 19 MOTHER Hypertension 19 FATHER 19 MOTHER Myocardial infarction G8 SISTER Review of Systems Time Seen by Provider: 05:43 Exam Exam General Appearance: No Apparent Distress HEENT: PERRL/EOMI Neck: Normal Inspection, Non Tender, Supple Respiratory: Chest Non Tender, Lungs Clear, Normal Breath Sounds, No Accessory Muscle Use, No Respiratory Distress Cardiovascular: No Edema Gastrointestinal: non tender, soft, no organomegaly Extremity: Normal Capillary Refill, Normal Inspection, Non Tender, No Calf Tenderness Neurologic/Psychiatric: Alert, Oriented x3, No Motor/Sensory Deficits, Normal Mood/Affect Skin: Normal Color, Warm/Dry Assessment/Plan Assessment/Plan Anemia s/p 2 units of PRBC - Hgb 6.5 04/16 up from 4.9 after two units RBC - Monitor Acute GIB - probably upper -Change protonix gtt to Protonix 40mg IV BID - General surgery following, NPO -Hold Eliquis -Monitor Hypokalemia - replace Afib- controlled - monitor DM - Bovine Aortic Valve Replacement CHRISTOPHER FRANCISCO MED STUDENT Apr 16, 2020 04:00 MYKE CORREIA DO Apr 16, 2020 05:48
[2020-04-16] MEDS: KCL 20 MEQ TAB (K-DUR) PO SCH (04:50)
[2020-04-16] MEDS: MAGNESIUM 1 GM/100 ML IVPB 100 ML IV SCH (04:50)
[2020-04-16] MEDS: POTASSIUM CL 10MEQ/50ML IVPB 50 ML IV SCH (04:50)
[2020-04-16] MEDS ORDERED: NS IV 500 ML 500 ML IV SCH ×2 (05:28→05:30)
[2020-04-16] MEDS: inSUlin ASPART (NovoLOG) 1 UNIT/0.01 ML (CHARGE PER UNIT) SC SCH ×4 (06:16→20:35)
[2020-04-16] MEDS: CATHETER FLUSH 10 ML SYR IV SCH ×3 (06:16→22:00)
[2020-04-16] MEDS ORDERED: FLU QUAD HIGH DOSE 240 MCG/0.7 ML 2020-21 (FLUZONE) IM ONE (07:15)
--- NOTE | 2020-04-16 07:26 | Diagnostic Imaging Report ---
INDICATION: Gastrointestinal bleed. Atrial fibrillation Upright portable chest shows cardiomegaly with mild vascular congestion. There is perihilar and basilar discoid atelectasis. No infiltrates are seen. There is no effusion. IMPRESSION: There has been slight improved aeration of the lungs otherwise stable chest compared to the 04/15/2020 study. Dictated by: Dictated on workstation # [id number]
[2020-04-16] MEDS: PANTOPRAZOLE 40 MG (PROTONIX) VIAL IV SCH ×2 (08:31→17:56)
--- NOTE | 2020-04-16 09:33 | History & Physicial ---
MAHIARIANAGEOVANNI MED STUDENT 04/16/20 0933: History of Present Illness History of Present Illness Reason for visit/HPI ACUTE GI BLEEDING & ANEMIA. PT CAME INTO THE ER YESTERDAY WITH 4.9 HGB AND WAS TRANSFUSED 2 UNITS, MELENA AND + OCCULT FECAL BLOOD TEST WAS DISCOVERED. PT ALERT AND COMMUNICATING APON VISIT THIS MORNING. PTS FEELING HIMSELF AND NOT CONFUSED. 2+ GRAVITY DEPENDENT EDEMA IN B/L LE. PT WILL UNDERGO EGD W/ POSSIBLE COLONOSCOPY FOR SUSPECTED UPPER GI BLEEDING LATER TODAY. Date of Admission Apr 15, 2020 at 18:43 Time Seen by a Provider: 08:00 I consulted on this patient on 04/16/20 09:28 Attending Physician Nathaniel Barrientos MD Admitting Physician Nathaniel Barrientos MD Consult Allergies and Home Medications Allergies Coded Allergies: No Known Drug Allergies (Unverified , 07/13/17) Home Medications Apixaban 5 Mg Tablet, 5 MG PO BID, (Reported) Aspirin 81 Mg Tablet.dr, 81 MG PO BID, (Reported) Cholecalciferol (Vitamin D3) 25 Mcg Tablet, 25 MCG PO DAILY, (Reported) Diltiazem HCl 120 Mg Cap.er.24h, 120 MG PO DAILY, (Reported) Ferrous Sulfate 325 Mg Tablet, 325 MG PO DAILY, (Reported) Lactobac Cmb #3/Fos/Pantethine 1 Each Capsule, 1 EACH PO HS, (Reported) Mirabegron 50 Mg Tab.er.24h, 50 MG PO HS, (Reported) Multivitamin 1 Each Tablet, 1 EACH PO DAILY, (Reported) Omeprazole 20 Mg Capsule.dr, 20 MG PO DAILY, (Reported) Pioglitazone HCl 45 Mg Tablet, 45 MG PO DAILY, (Reported) Pravastatin Sodium 10 Mg Tablet, 10 MG PO HS, (Reported) Tamsulosin HCl 0.4 Mg Cap, 0.4 MG PO HS, (Reported) Zolpidem Tartrate 6.25 Mg Tab.mphase, 6.25 MG PO HS, (Reported) Patient Home Medication List Home Medication List Reviewed: Yes Past Slopfat-Qekkas-Xhknlt Hx Patient Social History Alcohol Use: Denies Use Recreational Drug Use: No Smoking Status: Former Smoker Former Smoker, Quit: Feb 12, 1990 Type Used: Cigarettes 2nd Hand Smoke Exposure: No Recent Foreign Travel: No Contact w/other who traveled: No Recent Hopitalizations: Yes (1 month ago) Recent Infectious Disease Expo: No Immunizations Up To Date Tetanus Booster (TDap): Unknown Date of Pneumonia Vaccine: Feb 13, 2016 Seasonal Allergies Seasonal Allergies: No Surgeries Yes (BOVINE AORTIC VALVE REPLACEMENT; CARDIAC CATHS; APPY; KNEE REPLACEMENT) Appendectomy, Joint Replacement, Orthopedic, Valve Replacement Respiratory Yes (PNA with Sepsis december of 2019) Pneumonia Currently Using CPAP: No Currently Using BIPAP: No Cardiovascular Yes (MILD [place] -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;CARDIAC CATHS-NO INTERVENTION;BOVINE AORTIC RAKEL) Atrial Fibrillation, High Cholesterol, Valvular Heart Disease Neurological Yes (HOSPITALIZATION RELATED DELIRIUM) Dementia Reproductive System Sexually Transmitted Disease: No HIV/AIDS: No Genitourinary Yes Prostate Problems, Epi/Hypospadias Gastrointestinal Yes Gastroesophageal Reflux Musculoskeletal Yes (KNEE REPLACEMENT) Arthritis Endocrine History of Endocrine Disorders: Yes Endocrine Disorders: Diabetes, Non-Insulin dep HEENT History of HEENT Disorders: Yes (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 Family Medical History Significant Family History: Heart Disease, CAD Over 55 Years Old, Diabetes, Hypertension, Stroke Family Hx: Alcoholism G8 BROTHER Arthritis 19 MOTHER Completed stroke 19 FATHER Diabetes mellitus 19 MOTHER Hypertension 19 FATHER 19 MOTHER Myocardial infarction G8 SISTER Review of Systems Constitutional: no symptoms reported EENTM: no symptoms reported Respiratory: see HPI Cardiovascular: see HPI Gastrointestinal: No abdominal pain, No constipation, No diarrhea; melena; No nausea, No vomiting Genitourinary: see HPI Musculoskeletal: see HPI Skin: no symptoms reported Psychiatric/Neurological: No Symptoms Reported Physical Exam Vital Signs Vital Signs - First Documented 04/15/20 17:13 Temp 36.9 Pulse 87 Resp 18 B/P (MAP) 104/65 (78) Pulse Ox 100 O2 Delivery Nasal Cannula O2 Flow Rate 2.00 Capillary Refill : Less Than 3 Seconds Height, Weight, BMI Height: '" Weight: lbs. oz. kg; 30.16 BMI Method: General Appearance: No Apparent Distress, WD/WN Eyes: Bilateral Eye Normal Inspection, Bilateral Eye PERRL, Bilateral Eye EOMI Neck: Full Range of Motion, Normal Inspection Respiratory: Chest Non Tender, Lungs Clear, Normal Breath Sounds, No Accessory Muscle Use, No Respiratory Distress Cardiovascular: Normal Peripheral Pulses, Irregularly Irregular (IRREGULAR RHYTHEM HX OF AFIB) Gastrointestinal: No Organomegaly, No Pulsatile Mass, Non Tender, Abnormal Bowel Sounds (HYPOACTIVE BOWEL SOUNDS ) Rectal: Deferred Extremity: Normal Capillary Refill, No Calf Tenderness; No Calf Tenderness; Pedal Edema (B/L 2+ EDEMA LE ON LEGS AND POSTERIOR THIGHS ) Neurologic/Psychiatric: Alert, Oriented x3, No Motor/Sensory Deficits, Normal Mood/Affect Skin: Normal Color, Pallor Lymphatic: No Adenopathy Assessment/Plan Assessment and Plan ACUTE GI BLEEDING - Pt to get EGD today - Positive fecal occult, melena visualized. - suspect upper GI bleed. - General surgery following, NPO ACUTE BLOOD LOSS ANEMIA - Hgb 6.5 04/16 up from 4.9 after two units RBC - give 1 unit RBC today, continue to monitor CBC. get Hgb up over 7.0 and transfuse again if nadirs below this value. HYPOKALEMIA - replace potassium. levels at 3.4 on 04/16 CMP. UTI - U/a neg for nitrates, but 1+ H leukocyte esterase, 2-5 squamous epithelial cells and few H urine bacteria. Await for urine culture results. AFIB - HR in 80s consistently, monitor DM - consider resuming home pioglitazone Bovine Aortic Valve Replacement Admission Diagnosis Admission Status: Inpatient Order (span 2 midnights) Reason for Inpatient Admission: ACUTE GI BLEEDING & ANEMIA Clinical Quality Measures DVT/VTE Risk/Contraindication: Risk Factor Score Per Nursin RFS Level Per Nursing on Admit: 4+=Very High Contraindications-Pharm: Other *list below* Contraindications-Mechi: Other *list below* Other: GI BLEED NATHANIEL BARRIENTOS MD 04/18/20 0841: History of Present Illness History of Present Illness Reason for visit/HPI PT IS AN 84 Y/O MALE WHO IS WELL KNOWN TO ME FROM CLINIC. HE PRESENTED TO THE HOSPITAL AFTER A SYNCOPAL EPISODE AT HOME, HE WAS TRANSPORTED TO THE ER WHERE HE WAS FOUND TO HAVE A UTI AND ACUTE GASTROINTESTINAL BLEEDING WITH A HEMOGLOBIN OF 4.9 AND REPORTING OF TAR-LIKE STOOLS FOR "A WHILE". HE DENIED ANY CHEST PAIN, SHORTNESS OF BREATH, HEADACHE, ABDOMINAL PAIN, NAUSEA. Date of Admission 04/15/2020 Date Seen by a Provider: Apr 16, 2020 Time Seen by a Provider: 08:30 Attending Physician NATHANIEL BARRIENTOS MD Admitting Physician NATHANIEL BARRIENTOS MD Consult EMMA CUMMINGS DO Allergies and Home Medications Allergies Coded Allergies: No Known Drug Allergies (Unverified , 07/13/17) Home Medications Apixaban 5 Mg Tablet, 5 MG PO BID, (Reported) Aspirin 81 Mg Tablet.dr, 81 MG PO BID, (Reported) Cholecalciferol (Vitamin D3) 25 Mcg Tablet, 25 MCG PO DAILY, (Reported) Diltiazem HCl 120 Mg Cap.er.24h, 120 MG PO DAILY, (Reported) Ferrous Sulfate 325 Mg Tablet, 325 MG PO DAILY, (Reported) Lactobac Cmb #3/Fos/Pantethine 1 Each Capsule, 1 EACH PO HS, (Reported) Mirabegron 50 Mg Tab.er.24h, 50 MG PO HS, (Reported) Multivitamin 1 Each Tablet, 1 EACH PO DAILY, (Reported) Omeprazole 20 Mg Capsule.dr, 20 MG PO DAILY, (Reported) Pioglitazone HCl 45 Mg Tablet, 45 MG PO DAILY, (Reported) Pravastatin Sodium 10 Mg Tablet, 10 MG PO HS, (Reported) Tamsulosin HCl 0.4 Mg Cap, 0.4 MG PO HS, (Reported) Zolpidem Tartrate 6.25 Mg Tab.mphase, 6.25 MG PO HS, (Reported) Patient Home Medication List Home Medication List Reviewed: Yes Past Cjquyit-Fxlsuk-Ktgcwv Hx Patient Social History Marrital Status: Living Status: LIVES AT HOME WITH SPOUSE Employed/Student: retired Alcohol Use: Occasionally Uses Smoking Status: Former Smoker 2nd Hand Smoke Exposure: No Physical Abuse Screen: No Sexual Abuse: No Recent Foreign Travel: No Contact w/other who traveled: No Recent Hopitalizations: No Recent Infectious Disease Expo: No Surgeries Yes Respiratory No Cardiovascular Yes Atrial Fibrillation, High Cholesterol Neurological No Reproductive System Hx Reproductive Disorders: No Sexually Transmitted Disease: No HIV/AIDS: No Genitourinary Yes Benign Prostatic Hyperpl, Prostate Problems Gastrointestinal No Musculoskeletal No Endocrine History of Endocrine Disorders: No Psychosocial History of Psychiatric Problem: No Integumentary History of Skin or Integumenta: No Reviewed Nursing Assessment Reviewed/Agree w Nursing PMH: Yes Family Medical History Significant Family History: Heart Disease, Hypertension, Stroke Family Hx: Alcoholism G8 BROTHER Arthritis 19 MOTHER Completed stroke 19 FATHER Diabetes mellitus 19 MOTHER Hypertension 19 FATHER 19 MOTHER Myocardial infarction G8 SISTER Review of Systems Constitutional: No chills, No fever, No malaise; weakness EENTM: hearing loss; No hoarseness, No throat pain Respiratory: No cough, No dyspnea on exertion, No short of breath Cardiovascular: No chest pain; Hx of Intervention; No palpitations Gastrointestinal: No abdominal pain, No nausea, No vomiting; other (THICK, STICKY STOOLS - TAR COLORED) Genitourinary: no symptoms reported Musculoskeletal: no symptoms reported Skin: no symptoms reported Psychiatric/Neurological: Denies Anxiety, Denies Depressed All Other Systems Reviewed Negative Unless Noted: Yes Physical Exam General Appearance: No Apparent Distress, WD/WN Eyes: Bilateral Eye Normal Inspection, Bilateral Eye PERRL, Bilateral Eye EOMI HEENT: PERRL/EOMI, Pharynx Normal Neck: Full Range of Motion, Normal Inspection, Non Tender, Supple Respiratory: Chest Non Tender, Lungs Clear, Normal Breath Sounds, No Accessory Muscle Use, No Respiratory Distress Cardiovascular: Systolic Murmur, Irregularly Irregular Gastrointestinal: Normal Bowel Sounds, No Organomegaly, No Pulsatile Mass, Non Tender, Soft Rectal: Deferred Back: Normal Inspection, No Vertebral Tenderness Extremity: Normal Capillary Refill, Normal Inspection, Normal Range of Motion, Non Tender, No Calf Tenderness, No Pedal Edema Neurologic/Psychiatric: Alert, Oriented x3, No Motor/Sensory Deficits, Normal 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 CUMMINGS - PLANNING ON SCOPE ON 04/17/2020 - NPO STATUS AT THIS TIME - REPLACE WITH ANOTHER UNIT OF BLOOD THIS MORNING - PT GIVEN 2 UNITS LAST NIGHT ON ADMISSION - SERIALLY MONITOR H AND H HYPOKALEMIA - IV POTASSIUM FOR REPLACEMENT, MONITOR LABS UTI - WAITING ON URINE CULTURE REPORT, IV ROCEPHIN AFIB - STABLE RATE, RESUME HOME MEDICATION EXCEPT FOR NOAC DM - HOLD HOME REGIMEN FOR NOW SINCE HE IS NPO Bovine Aortic Valve Replacement - SUPPORTIVE CARE ONLY HX OF EXTREME DELIRIUM ON LAST HOSPITALIZATION WITH CRITICAL CARE MYOPATHY - WILL AMBULATE ABLE, AVOID EXCESSIVE ROOM CHANGES, AVOID EXCESSIVE MOVING FROM ICU TO FLOOR IF ABLE - DUE TO HIS SEVERE DELIRIUM ON HIS LAST ADMISSION WITH PT AT HIGH RISK OF RECURRENCE. Admission Diagnosis ACUTE GI BLEEDING - SUSPECT UPPER GI SOURCE ACUTE BLOOD LOSS ANEMIA CHRONIC ANTICOAGULATION WITH ELIQUIS FOR AFIB HYPOKALEMIA UTI AFIB DM Bovine Aortic Valve Replacement Admission Status: Inpatient Order (span 2 midnights) Reason for Inpatient Admission: PT IS INPATIENT ADMISSION DUE TO SEVERE GASTROINTESTINAL BLEEDING AND UTI - WILL REQUIRE AT LEAST 72+ HOURS IN HOSPITAL GEOVANNI GARRIDO MED STUDENT Apr 16, 2020 09:33 NATHANIEL BARRIENTOS MD Apr 18, 2020 08:41
[2020-04-16 10:08] LABS: HEMOGLOBIN 7.6 g/dL (13.3-17.7)
[2020-04-16] MEDS ORDERED: KCL 20 MEQ TAB (K-DUR) PO ONE (12:00)
[2020-04-16 12:18] LABS: HEMOGLOBIN 7.2 g/dL (13.3-17.7)
--- NOTE | 2020-04-16 13:41 | Progress Note - Surgery ---
EVITA NORWOOD MED STUDENT 04/16/20 1341: Subjective Date Seen by a Provider: Apr 16, 2020 Time Seen by a Provider: 07:20 Subjective/Events-last exam Pt states he is doing well and denies pain. Per nurse, pt is currently on his 3rd transfusion. Had a black stool this morning. CT heaad from last night showed no acute intracranial process. CXR today showed improved aeration of lungs from yesterday's CXR. Hbg today is up to 6.5 from 4.9 yesterday in the ER. Objective Exam Vital Signs Date Time Temp Pulse Resp B/P (MAP) Pulse Ox O2 Delivery O2 Flow Rate FiO2 04/16/20 13:07 36.3 90 20 99/46 97 Room Air 04/16/20 12:54 36.3 04/16/20 11:39 Room Air 04/16/20 11:38 99 Room Air 04/16/20 08:26 36.4 88 16 130/70 100 Room Air 04/16/20 07:37 100 Nasal Cannula 3.00 04/16/20 07:34 36.4 04/16/20 07:30 Room Air 04/16/20 06:37 91 04/16/20 06:00 89 134/75 (94) 100 Nasal Cannula 3.00 04/16/20 06:00 36.4 86 18 134/75 99 Nasal Cannula 3.00 04/16/20 05:43 36.4 85 20 137/68 99 Nasal Cannula 3.00 04/16/20 05:00 79 20 137/68 (91) 100 Nasal Cannula 3.00 04/16/20 04:00 99 Nasal Cannula 3.00 04/16/20 04:00 84 21 117/69 (85) 100 Nasal Cannula 3.00 04/16/20 04:00 36.8 04/16/20 03:02 81 27 113/64 (80) 100 Nasal Cannula 3.00 04/16/20 02:01 36.6 83 17 125/60 100 Nasal Cannula 3.00 04/16/20 02:00 85 18 125/60 (81) 100 Nasal Cannula 3.00 04/16/20 01:00 85 19 126/66 (86) 100 Nasal Cannula 3.00 04/16/20 01:00 85 04/16/20 00:20 36.2 04/16/20 00:00 99 Nasal Cannula 3.00 04/16/20 00:00 89 121/69 (86) 100 Nasal Cannula 3.00 04/15/20 23:28 36.4 84 16 127/65 99 Nasal Cannula 3.00 04/15/20 23:08 36.2 85 21 121/62 100 Nasal Cannula 3.00 04/15/20 23:00 86 25 121/62 (81) 100 Nasal Cannula 3.00 04/15/20 22:00 81 23 123/69 (87) 100 Nasal Cannula 3.00 04/15/20 21:16 100 Nasal Cannula 3.00 04/15/20 21:00 84 18 105/66 (79) 100 Nasal Cannula 3.00 04/15/20 20:14 36.5 83 12 123/70 100 Nasal Cannula 3.00 04/15/20 20:01 36.4 83 18 127/57 100 Nasal Cannula 3.00 04/15/20 20:00 87 12 127/57 (80) 100 Nasal Cannula 3.00 04/15/20 19:46 85 04/15/20 19:45 36.4 88 16 127/57 (80) 100 Nasal Cannula 3.00 04/15/20 19:08 82 18 123/74 100 Nasal Cannula 2.00 04/15/20 17:13 36.9 87 18 104/65 (78) 100 Nasal Cannula 2.00 I & O 04/16/20 07:00 Intake Total 150 ml Balance 150 ml Capillary Refill : Less Than 3 Seconds General Appearance: No Apparent Distress, WD/WN HEENT: PERRL/EOMI, Normal ENT Inspection Neck: Normal Inspection, Supple Respiratory: Chest Non Tender, No Accessory Muscle Use, No Respiratory Distress Cardiovascular: No JVD, Irregularly Irregular (IRREGULAR RHYTHEM HX OF AFIB) Gastrointestinal: non tender, soft, no organomegaly Extremity: Normal Range of Motion, No Calf Tenderness Neurologic/Psychiatric: Alert, Oriented x3, No Motor/Sensory Deficits, Normal Mood/Affect Skin: Normal Color, Pallor Lymphatic: No Adenopathy Results Lab Laboratory Tests 04/15/20 17:29: White Blood Count 7.9, Red Blood Count 1.74L, Hemoglobin 4.9*L, Hematocrit 16*L, Mean Corpuscular Volume 93, Mean Corpuscular Hemoglobin 28, Mean Corpuscular Hemoglobin Concent 30L, Red Cell Distribution Width 17.5H, Platelet Count 219, Mean Platelet Volume 10.3, Sodium Level 139, Potassium Level 3.5L, Chloride Level 108H, Carbon Dioxide Level 24, Anion Gap 7, Blood Urea Nitrogen 41H, Creatinine 1.23, Estimat Glomerular Filtration Rate 56, BUN/Creatinine Ratio 33, Glucose Level 153H, Calcium Level 7.9L 04/15/20 21:26: Urine Color YELLOW, Urine Clarity CLOUDY, Urine pH 6.0, Urine Specific [place] >=1.030, Urine Protein NEGATIVE, Urine Glucose (UA) NEGATIVE, Urine Ketones NEGATIVE, Urine Nitrite NEGATIVE, Urine Bilirubin NEGATIVE, Urine Urobilinogen 0.2, Urine Leukocyte Esterase 1+H, Urine RBC (Auto) NEGATIVE, Urine RBC NONE, Urine WBC 5-10H, Urine Squamous Epithelial Cells 2-5, Urine Crystals NONE, Urine Bacteria FEWH, Urine Casts NONE, Urine Mucus LARGEH, Urine Culture Indicated YES 04/16/20 03:04: White Blood Count 8.9, Red Blood Count 2.33L, Hemoglobin 6.5#*L, Hematocrit 21L, Mean Corpuscular Volume 88, Mean Corpuscular Hemoglobin 28, Mean Corpuscular Hemoglobin Concent 32, Red Cell Distribution Width 18.9H, Platelet Count 207, Mean Platelet Volume 10.3, Sodium Level 140, Potassium Level 3.4L, Chloride Level 110H, Carbon Dioxide Level 21, Anion Gap 9, Blood Urea Nitrogen 45H, Creatinine 1.10, Estimat Glomerular Filtration Rate > 60, BUN/Creatinine Ratio 41, Glucose Level 135H, Calcium Level 7.7L, Immature Granulocyte % (Auto) 1, Neutrophils (%) (Auto) 84H, Lymphocytes (%) (Auto) 7L, Monocytes (%) (Auto) 7, Eosinophils (%) (Auto) 1, Basophils (%) (Auto) 1, Neutrophils # (Auto) 7.5, Lymphocytes # (Auto) 0.7L, Monocytes # (Auto) 0.6, Eosinophils # (Auto) 0.1, Basophils # (Auto) 0.0, Immature Granulocyte # (Auto) 0.1, Corrected Calcium 8.7, Phosphorus Level 3.1, Magnesium Level 2.0, Total Bilirubin 1.5H, Aspartate Amino Transf (AST/SGOT) 17, Alanine Aminotransferase (ALT/SGPT) 13, Alkaline Phosphatase 48, Total Protein 4.4L, Albumin 2.7L 04/16/20 10:00: Hemoglobin 7.6L, Hematocrit 25L 04/16/20 11:36: Glucometer 129H 04/16/20 12:10: Hemoglobin 7.2L, Hematocrit 23L Assessment/Plan Assessment/Plan Assessment/Plan fall anemia dark stools NPO Protonix IV hydration Plan for EGD tomorrow morning Eliquis being held monitor labs Clinical Quality Measures DVT/VTE Risk/Contraindication: Risk Factor Score Per Nursin RFS Level Per Nursing on Admit: 4+=Very High Contraindications-Pharm: Other *list below* Contraindications-Mechi: Other *list below* Other: GI BLEED EMMA CAMPBELL DO 04/16/202057: Subjective Subjective/Events-last exam Feeling well today. Had transfusion of PRBC. On Protonix. Hgb increased. + dark melena stools. NPO. No new complaints. Anticoagulation on hold. Objective Exam General Appearance: No Apparent Distress, WD/WN HEENT: PERRL/EOMI, Normal ENT Inspection Neck: Normal Inspection, Non Tender, Supple Respiratory: Chest Non Tender, No Accessory Muscle Use, No Respiratory Distress Cardiovascular: No JVD, Irregularly Irregular (IRREGULAR RHYTHEM HX OF AFIB) Gastrointestinal: non tender, soft, no organomegaly Extremity: Normal Range of Motion, No Calf Tenderness Neurologic/Psychiatric: Alert, Oriented x3, No Motor/Sensory Deficits, Normal Mood/Affect Skin: Warm/Dry, Pallor Lymphatic: No Adenopathy Assessment/Plan Assessment/Plan Assessment/Plan fall anemia secondary to likely upper gi bleed dark stools/melena long-term anticoagulation NPO Protonix IV hydration Plan for EGD tomorrow morning Eliquis being held monitor labs transfuse prbc as needed consent for EGD Supervisory-Addendum Brief Verification & Attestation Participated in pt care: history, MDM, physical Personally performed: exam, history, MDM, supervision of care Care discussed with: Medical Student Procedures: n/a Results interpretation: Verified all documentation Verification and Attestation of Medical Student E/M Service A medical student performed and documented this service in my presence. I reviewed and verified all information documented by the medical student and made modifications to such information, when appropriate. I personally performed the physical exam and medical decision making. Emma Campbell, Apr 16, 2020,21:01 EVITA NORWOOD MED STUDENT Apr 16, 2020 13:41 EMMA CAMPBELL DO Apr 16, 2020 20:58
[2020-04-16] MEDS ORDERED: DILT-27 PO (13:55)
[2020-04-16] MEDS ORDERED: FERR325T18 PO (13:55)
[2020-04-16] MEDS ORDERED: MULT-1136 PO (13:55)
[2020-04-16] MEDS ORDERED: CHOL100045 PO (13:55)
[2020-04-16] MEDS ORDERED: MIRA50TA PO (13:55)
[2020-04-16] MEDS ORDERED: ZOLP6.252 PO (13:55)
[2020-04-16] MEDS ORDERED: APIX5TAB PO (13:55)
--- NOTE | 2020-04-16 13:55 | NUR ---
SPOKE WITH THE PT- HE SUGGESTED I TALK TO HIS JOAO SINCE SHE TAKES CARE OF HIS MEDS. I CALLED JOAO AND WENT THRU THE EXT MED HISTORY TO COMPLETE THE MED REC ALL MEDICATIONS ARE LISTED ON THE EXT MED HISTORY AND JOAO WAS ABLE TO TELL ME WHEN/HOW THE PT TAKES EACH MED OTC MEDS: ASPIRIN 81MG BID PROBIOTIC IRON MT VIT D3
[2020-04-16 16:13] LABS: HEMOGLOBIN 7.9 g/dL (13.3-17.7)
[2020-04-16 20:21] LABS: HEMOGLOBIN 8.5 g/dL (13.3-17.7)
[2020-04-17] VITALS (25 sets, daily range): BP systolic 96–142; BP diastolic 59–94
[2020-04-17 03:40] LABS: BASOPHILS % (AUTO) 0 % (0-10); EOSINOPHILS % (AUTO) 0 % (0-10); HEMATOCRIT 26 % (40-54); HEMOGLOBIN 8.1 g/dL (13.3-17.7); LYMPHOCYTES # (AUTO) 0.5 10^3/uL (1.0-4.0); LYMPHOCYTES % (AUTO) 4 % (12-44); MEAN CORPUSCULAR HEMOGLOBIN 28 pg (25-34); MEAN CORPUSCULAR HGB CONC 32 g/dL (32-36); MEAN CORPUSCULAR VOLUME 88 fL (80-99); MEAN PLATELET VOLUME 9.9 fL (9.0-12.2); MONOCYTES # (AUTO) 0.8 10^3/uL (0.0-1.0); MONOCYTES % (AUTO) 6 % (0-12); NEUTROPHILS # (AUTO) 10.3 10^3/uL (1.8-7.8); NEUTROPHILS % (AUTO) 88 % (42-75); PLATELET COUNT 233 10^3/uL (130-400); WHITE BLOOD COUNT 11.7 10^3/uL (4.3-11.0)
[2020-04-17 04:02] LABS: CHLORIDE 112 MMOL/L (98-107); POTASSIUM 3.8 MMOL/L (3.6-5.0); SODIUM 143 MMOL/L (135-145)
[2020-04-17 04:03] LABS: CALCIUM 8.3 MG/DL (8.5-10.1)
[2020-04-17 04:04] LABS: GLUCOSE 122 MG/DL (70-105)
[2020-04-17 04:06] LABS: CARBON DIOXIDE 21 MMOL/L (21-32)
[2020-04-17 04:08] LABS: CREATININE SERUM 1.09 MG/DL (0.60-1.30); GFR ESTIMATED > 60; PHOSPHORUS 2.5 MG/DL (2.3-4.7)
[2020-04-17 04:09] LABS: BUN/CREATININE RATIO 36
[2020-04-17 04:10] LABS: MAGNESIUM 2.1 MG/DL (1.6-2.4)
--- NOTE | 2020-04-17 04:14 | Pulmonary Progress Note ---
CHRISTOPHER FRANCISOC MED STUDENT 04/17/20 0414: Subjective Date Seen by a Provider: Apr 17, 2020 Time Seen by a Provider: 03:55 Subjective/Events-last exam Igor Glez is an 84 year old man being seen due to melena and anemia. He has received four blood transfusions since admission, and he will undergo an EGD today. Reports he has continued to have dark stools yesterday. He complains of SOB when he exerts himself that he first noticed last night. No SOB at rest. Denies having any cough, fevers or chills, light-headedness, CP, nausea. Review of Systems General: No Chills, No Fatigue HEENT: No Sinus Congestion, No Sore Throat Pulmonary: Dyspnea; No Cough Cardiovascular: No: Chest Pain, Palpitations, Lt Headedness Gastrointestinal: Melena; No: Nausea, Abdominal Pain Genitourinary: No Dysuria, No Frequency Sepsis Event Evaluation Height, Weight, BMI Height: '" Weight: lbs. oz. kg; 30.16 BMI Method: Exam Exam Vital Signs Date Time Temp Pulse Resp B/P (MAP) Pulse Ox O2 Delivery O2 Flow Rate FiO2 04/17/20 04:00 99 Room Air 04/17/20 01:00 100 04/17/20 00:00 99 Room Air 04/17/20 00:00 36.4 04/16/20 23:00 99 29 116/64 (81) 94 Room Air 04/16/20 22:00 90 14 112/82 (92) 94 Room Air 04/16/20 21:00 86 22 115/71 (86) 95 Room Air 04/16/20 20:00 99 Room Air 04/16/20 20:00 36.0 04/16/20 20:00 104 18 135/80 (98) 92 Room Air 04/16/20 19:00 82 25 137/74 (95) 95 Room Air 04/16/20 19:00 94 04/16/20 18:00 90 28 126/72 (90) 94 Room Air 04/16/20 17:00 93 23 105/51 (69) 100 Room Air 04/16/20 16:29 36.6 87 22 110/54 98 Room Air 04/16/20 16:00 99 Room Air 04/16/20 16:00 36.3 04/16/20 16:00 86 27 121/67 (85) 97 Room Air 04/16/20 15:00 94 30 135/81 (99) 98 Room Air 04/16/20 14:00 92 21 142/81 (101) 98 Room Air 04/16/20 13:23 36.2 94 22 129/83 100 Room Air 04/16/20 13:07 36.3 90 20 99/46 97 Room Air 04/16/20 13:00 87 26 120/74 (89) 98 Room Air 04/16/20 12:54 36.3 04/16/20 12:42 97 04/16/20 12:00 87 11 109/54 (72) 97 Room Air 04/16/20 11:39 Room Air 04/16/20 11:38 99 Room Air 04/16/20 11:00 85 40 130/110 (117) 94 Nasal Cannula 3.00 04/16/20 10:00 93 26 132/85 (101) 97 Nasal Cannula 3.00 04/16/20 09:00 85 14 125/71 (89) 92 Nasal Cannula 3.00 04/16/20 08:26 36.4 88 16 130/70 100 Room Air 04/16/20 08:00 83 23 130/70 (90) 98 Nasal Cannula 3.00 04/16/20 07:37 100 Nasal Cannula 3.00 04/16/20 07:34 36.4 04/16/20 07:30 Room Air 04/16/20 07:00 86 21 120/78 (92) 99 Nasal Cannula 3.00 04/16/20 06:37 91 04/16/20 06:00 89 134/75 (94) 100 Nasal Cannula 3.00 04/16/20 06:00 36.4 86 18 134/75 99 Nasal Cannula 3.00 04/16/20 05:43 36.4 85 20 137/68 99 Nasal Cannula 3.00 04/16/20 05:00 79 20 137/68 (91) 100 Nasal Cannula 3.00 I & O 04/17/20 07:00 Intake Total 100 ml Output Total 1 ml Balance 99 ml Height & Weight Height: '" Weight: lbs. oz. kg; 30.16 BMI Method: General Appearance: No Apparent Distress, WD/WN HEENT: PERRL/EOMI; No Scleral Icterus (L), No Scleral Icterus (R) Neck: Normal Inspection, Non Tender, Supple Respiratory: Chest Non Tender, Lungs Clear, Normal Breath Sounds, No Accessory Muscle Use, No Respiratory Distress Cardiovascular: Normal Peripheral Pulses, Systolic Murmur, Irregularly Irregular, Tachycardia (90s-100s) Capillary Refill: Less Than 3 Seconds Peripheral Pulses: 2+ Dorsalis Pedis (R), 2+ Left Dors-Pedis (L), 2+ Radial Pulses (R), 2+ Radial Pulses (L) Gastrointestinal: non tender, soft, no organomegaly, abnormal bowel sounds (hypoactive) Extremity: Normal Capillary Refill, Non Tender, No Calf Tenderness, Pedal Edema Neurologic/Psychiatric: Alert, Oriented x3, Normal Mood/Affect Skin: Warm/Dry, Pallor Lymphatic: No Adenopathy Results Lab Laboratory Tests 04/15/20 17:29 04/16/20 03:04 04/16/20 10:00 04/16/20 12:10 04/16/20 15:50 04/16/20 20:15 04/17/20 03:06 Assessment/Plan Assessment/Plan Anemia s/p 4 units of PRBC Hgb 8.5, up from 6.5 04/16, 4.9 04/15 Consider holding further transfusion Monitor Acute GIB - probably upper General surgery following, NPO Continue protonix PO Hold Eliquis Monitor Hypokalemia CMP pending Afib- controlled HR reaching 100s today, slowly increasing from mid 80s since admission. Anemia improving, consider afib as cause DM continue SSI Bovine Aortic Valve Replacement MYKE CORREIA DO 04/17/20 0610: Subjective Time Seen by a Provider: 06:04 Exam Exam General Appearance: No Apparent Distress, WD/WN HEENT: PERRL/EOMI Neck: Normal Inspection, Non Tender, Supple Respiratory: Chest Non Tender, Lungs Clear, Normal Breath Sounds, No Accessory Muscle Use, No Respiratory Distress Gastrointestinal: non tender, soft Extremity: Normal Capillary Refill, Non Tender, No Calf Tenderness Assessment/Plan Assessment/Plan Anemia s/p 4 units of PRBC Check BNP -EGD scheduled for today Monitor Acute GIB - probably upper General surgery following, NPO Protonix IV BID Hold Eliquis Monitor Afib- controlled HR reaching 100s today, slowly increasing from mid 80s since admission. Anem ia improving, consider afib as cause DM continue SSI Bovine Aortic Valve Replacement CHRISTOPHER FRANCISCO STUDENT Apr 17, 2020 04:14 MYKE CORREIA DO Apr 17, 2020 06:10
[2020-04-17] MEDS: MAGNESIUM 1 GM/100 ML IVPB 100 ML IV SCH (04:31)
[2020-04-17] MEDS: POTASSIUM CL 10MEQ/50ML IVPB 50 ML IV SCH (04:31)
[2020-04-17] MEDS: KCL 20 MEQ TAB (K-DUR) PO SCH (04:32)
[2020-04-17] MEDS: inSUlin ASPART (NovoLOG) 1 UNIT/0.01 ML (CHARGE PER UNIT) SC SCH ×4 (05:15→21:51)
[2020-04-17] MEDS: CATHETER FLUSH 10 ML SYR IV SCH ×3 (06:17→22:18)
[2020-04-17] MEDS: PANTOPRAZOLE 40 MG (PROTONIX) VIAL IV SCH ×2 (07:41→19:36)
--- NOTE | 2020-04-17 07:51 | Progress Note - Surgery ---
EVITA NORWOOD MED STUDENT 04/17/20 0751: Subjective Date Seen by a Provider: Apr 17, 2020 Time Seen by a Provider: 07:10 Subjective/Events-last exam Pt has no complaints or pain. No nausea or vomiting. Still having dark stools. CXR from yesterday shows slight improvement in aeration from CXR the day prior. WBC today is 11.7 from 8.9 yesterday. Hgb is 8.1. Pt has had 4 blood transfusions. Objective Exam Vital Signs Date Time Temp Pulse Resp B/P (MAP) Pulse Ox O2 Delivery O2 Flow Rate FiO2 04/17/20 07:38 98 Room Air 04/17/20 07:38 36.1 04/17/20 06:00 90 24 125/68 (87) 98 Room Air 04/17/20 05:00 93 27 127/70 (89) 97 Room Air 04/17/20 04:00 89 29 123/69 (87) 97 Room Air 04/17/20 04:00 99 Room Air 04/17/20 03:00 89 22 125/78 (94) 97 Room Air 04/17/20 02:00 90 15 142/87 (105) 96 Room Air 04/17/20 01:00 91 28 131/69 (89) 98 Room Air 04/17/20 01:00 100 04/17/20 00:00 99 Room Air 04/17/20 00:00 98 20 119/72 (88) 93 Room Air 04/17/20 00:00 36.4 04/16/20 23:00 99 29 116/64 (81) 94 Room Air 04/16/20 22:00 90 14 112/82 (92) 94 Room Air 04/16/20 21:00 86 22 115/71 (86) 95 Room Air 04/16/20 20:00 99 Room Air 04/16/20 20:00 36.0 04/16/20 20:00 104 18 135/80 (98) 92 Room Air 04/16/20 19:00 82 25 137/74 (95) 95 Room Air 04/16/20 19:00 94 04/16/20 18:00 90 28 126/72 (90) 94 Room Air 04/16/20 17:00 93 23 105/51 (69) 100 Room Air 04/16/20 16:29 36.6 87 22 110/54 98 Room Air 04/16/20 16:00 99 Room Air 04/16/20 16:00 36.3 04/16/20 16:00 86 27 121/67 (85) 97 Room Air 04/16/20 15:00 94 30 135/81 (99) 98 Room Air 04/16/20 14:00 92 21 142/81 (101) 98 Room Air 04/16/20 13:23 36.2 94 22 129/83 100 Room Air 04/16/20 13:07 36.3 90 20 99/46 97 Room Air 04/16/20 13:00 87 26 120/74 (89) 98 Room Air 04/16/20 12:54 36.3 04/16/20 12:42 97 04/16/20 12:00 87 11 109/54 (72) 97 Room Air 04/16/20 11:39 Room Air 04/16/20 11:38 99 Room Air 04/16/20 11:00 85 40 130/110 (117) 94 Nasal Cannula 3.00 04/16/20 10:00 93 26 132/85 (101) 97 Nasal Cannula 3.00 04/16/20 09:00 85 14 125/71 (89) 92 Nasal Cannula 3.00 04/16/20 08:26 36.4 88 16 130/70 100 Room Air 04/16/20 08:00 83 23 130/70 (90) 98 Nasal Cannula 3.00 I & O 04/17/20 07:00 Intake Total 100 ml Output Total 1 ml Balance 99 ml Capillary Refill : Less Than 3 Seconds General Appearance: No Apparent Distress, WD/WN HEENT: PERRL/EOMI, Normal ENT Inspection Neck: Normal Inspection, Non Tender, Supple Respiratory: Chest Non Tender, No Accessory Muscle Use, No Respiratory Distress Cardiovascular: Normal Peripheral Pulses, Irregularly Irregular Peripheral Pulses: 2+ Dorsalis Pedis (R), 2+ Left Dors-Pedis (L), 2+ Radial Pulses (R), 2+ Radial Pulses (L) Gastrointestinal: non tender, soft Extremity: Normal Inspection, Non Tender Neurologic/Psychiatric: Alert, Oriented x3, Normal Mood/Affect Skin: Warm/Dry, Pallor (improved) Lymphatic: No Adenopathy Results Lab Laboratory Tests 04/16/20 10:00: Hemoglobin 7.6L, Hematocrit 25L 04/16/20 11:36: Glucometer 129H 04/16/20 12:10: Hemoglobin 7.2L, Hematocrit 23L 04/16/20 14:21: Lab Scanned Report Transfusion Reaction Form 04/16/20 15:41: Glucometer 134H 04/16/20 15:50: Hemoglobin 7.9L, Hematocrit 25L 04/16/20 19:17: Glucometer 117H 04/16/20 20:15: Hemoglobin 8.5L, Hematocrit 27L 04/17/20 03:06: White Blood Count 11.7H, Red Blood Count 2.92L, Hemoglobin 8.1L, Hematocrit 26L, Mean Corpuscular Volume 88, Mean Corpuscular Hemoglobin 28, Mean Corpuscular Hemoglobin Concent 32, Red Cell Distribution Width 19.2H, Platelet Count 233, Mean Platelet Volume 9.9, Immature Granulocyte % (Auto) 1, Neutrophils (%) (Auto) 88H, Lymphocytes (%) (Auto) 4L, Monocytes (%) (Auto) 6, Eosinophils (%) (Auto) 0, Basophils (%) (Auto) 0, Neutrophils # (Auto) 10.3H, Lymphocytes # (Aut o) 0.5L, Monocytes # (Auto) 0.8, Eosinophils # (Auto) 0.0, Basophils # (Auto) 0.0, Immature Granulocyte # (Auto) 0.1, Sodium Level 143, Potassium Level 3.8, Chloride Level 112H, Carbon Dioxide Level 21, Anion Gap 10, Blood Urea Nitrogen 39H, Creatinine 1.09, Estimat Glomerular Filtration Rate > 60, BUN/Creatinine Ratio 36, Glucose Level 122H, Calcium Level 8.3L, Phosphorus Level 2.5, Magnesium Level 2.1 04/17/20 06:03: B-Type Natriuretic Peptide 397.2H Microbiology 04/15/20 Urine Culture - Preliminary, Resulted Gram Negative Carter 04/15/20 MRSA Screen - Final, Complete MRSA not isolated Assessment/Plan Assessment/Plan Assessment/Plan fall anemia secondary to likely upper gi bleed dark stools/melena long-term anticoagulation NPO Protonix IV hydration EGD today Eliquis being held monitor labs transfuse prbc as needed Clinical Quality Measures DVT/VTE Risk/Contraindication: Risk Factor Score Per Nursin RFS Level Per Nursing on Admit: 4+=Very High Contraindications-Pharm: Other *list below* Contraindications-Mechi: Other *list below* Other: GI BLEED JORGE CAMPBELL DO 04/18/200: Subjective Subjective/Events-last exam Patient states that he is doing okay. He had dark stools. He is not having any nausea or vomiting. Denies weakness or dizziness. Ready for EGD today. Objective Exam General Appearance: No Apparent Distress, WD/WN HEENT: PERRL/EOMI, Normal ENT Inspection Neck: Normal Inspection, Non Tender Respiratory: Chest Non Tender, No Accessory Muscle Use, No Respiratory Distress Cardiovascular: No JVD, Irregularly Irregular Gastrointestinal: non tender, soft Extremity: Normal Inspection, Non Tender Neurologic/Psychiatric: Alert, Oriented x3, Normal Mood/Affect Skin: Warm/Dry, Pallor (improved) Lymphatic: No Adenopathy Assessment/Plan Assessment/Plan Assessment/Plan fall anemia secondary to likely upper gi bleed dark stools/melena long-term anticoagulation NPO Protonix IV hydration EGD today Eliquis being held monitor labs transfuse prbc as needed Supervisory-Addendum Brief Verification & Attestation Participated in pt care: history, MDM, physical Personally performed: exam, history, MDM, supervision of care Care discussed with: Medical Student Procedures: n/a Results interpretation: Verified all documentation Verification and Attestation of Medical Student E/M Service A medical student performed and documented this service in my presence. I reviewed and verified all information documented by the medical student and made modifications to such information, when appropriate. I personally performed the physical exam and medical decision making. Jorge Campbell, Apr 17, 2020,21:29 EVITA NORWOOD MED STUDENT Apr 17, 2020 07:51 JORGE CAMPBELL DO Apr 18, 2020 21:30
--- NOTE | 2020-04-17 08:43 | Diagnostic Imaging Report ---
EXAM: Portable erect AP chest at 4:11 AM INDICATION: Gastrointestinal bleeding, anemia. The heart is stable in size when compared to the prior exam of 04/16/2020. However, in the interval since the prior study, there has been a mild increase in the atelectasis/infiltrate in each lung base. The mediastinum is not widened. The osseous structures are intact. IMPRESSION: The appearance of the chest has worsened slightly since the prior study as there has been a mild increase in the atelectasis/infiltrate in each lower lobe. A follow-up study would be recommended for continued evaluation. Dictated by: Dictated on workstation # [id number]
--- NOTE | 2020-04-17 08:50 | Progress Note ---
Subjective Subjective Date Seen by Provider: Apr 17, 2020 Time Seen by Provider: 08:20 PT REPORTS THAT HE IS FEELING GOOD, DOES NOT COMPLAIN OF ABDOMINAL PAIN, CONTINUES TO HAVE DARK TAR COLORED STOOLS, DENIES CHEST PAIN. STAFF DENIES CONCERNS FOR DELIRIUM AT THIS TIME. HE IS WAITING ON HIS SCOPE LATER TODAY Review of Systems General: No Chills, No Fatigue HEENT: No Sinus Congestion, No Sore Throat Pulmonary: Dyspnea; No Cough Cardiovascular: No: Chest Pain, Palpitations, Lt Headedness Gastrointestinal: Melena; No: Nausea, Abdominal Pain Genitourinary: No Dysuria, No Frequency Musculoskeletal: No: leg pain Neurological: No: Weakness, Numbness All Other Systems Reviewed All Other Systems Reviewed: Yes (Negative excepted noted.) Objective Exam Vital Signs Vital Signs - First Documented 04/15/20 17:13 Temp 36.9 Pulse 87 Resp 18 B/P (MAP) 104/65 (78) Pulse Ox 100 O2 Delivery Nasal Cannula O2 Flow Rate 2.00 Capillary Refill : Less Than 3 Seconds General Appearance: No Apparent Distress, WD/WN Eyes: Bilateral Eye Normal Inspection, Bilateral Eye PERRL, Bilateral Eye EOMI HEENT: PERRL/EOMI, Normal ENT Inspection Neck: Normal Inspection, Non Tender, Supple Respiratory: Chest Non Tender, No Accessory Muscle Use, No Respiratory Distress Cardiovascular: Normal Peripheral Pulses, Irregularly Irregular Gastrointestinal: No Organomegaly, No Pulsatile Mass, Non Tender, Abnormal Bowel Sounds (HYPOACTIVE BOWEL SOUNDS ) Rectal: Deferred Extremity: Normal Inspection, Non Tender Neurologic/Psychiatric: Alert, Oriented x3, Normal Mood/Affect Skin: Warm/Dry, Pallor (improved) Lymphatic: No Adenopathy Results Lab Laboratory Tests 04/16/20 10:00: Hemoglobin 7.6L, Hematocrit 25L 04/16/20 11:36: Glucometer 129H 04/16/20 12:10: Hemoglobin 7.2L, Hematocrit 23L 04/16/20 14:21: Lab Scanned Report Transfusion Reaction Form 04/16/20 15:41: Glucometer 134H 04/16/20 15:50: Hemoglobin 7.9L, Hematocrit 25L 04/16/20 19:17: Glucometer 117H 04/16/20 20:15: Hemoglobin 8.5L, Hematocrit 27L 04/17/20 03:06: White Blood Count 11.7H, Red Blood Count 2.92L, Hemoglobin 8.1L, Hematocrit 26L, Mean Corpuscular Volume 88, Mean Corpuscular Hemoglobin 28, Mean Corpuscular Hemoglobin Concent 32, Red Cell Distribution Width 19.2H, Platelet Count 233, Mean Platelet Volume 9.9, Immature Granulocyte % (Auto) 1, Neutrophils (%) (Auto) 88H, Lymphocytes (%) (Auto) 4L, Monocytes (%) (Auto) 6, Eosinophils (%) (Auto) 0, Basophils (%) (Auto) 0, Neutrophils # (Auto) 10.3H, Lymphocytes # (Auto) 0.5L, Monocytes # (Auto) 0.8, Eosinophils # (Auto) 0.0, Basophils # (Auto) 0.0, Immature Granulocyte # (Auto) 0.1, Sodium Level 143, Potassium Level 3.8, Chloride Level 112H, Carbon Dioxide Level 21, Anion Gap 10, Blood Urea Nitrogen 39H, Creatinine 1.09, Estimat Glomerular Filtration Rate > 60, BUN/Creatinine Ratio 36, Glucose Level 122H, Calcium Level 8.3L, Phosphorus Level 2.5, Magnesium Level 2.1 04/17/20 06:03: B-Type Natriuretic Peptide 397.2H Microbiology 04/15/20 Urine Culture - Preliminary, Resulted Gram Negative Carter 04/15/20 MRSA Screen - Final, Complete MRSA not isolated Assessment/Plan Assessment/Plan Admission Dx ACUTE GI BLEEDING - SUSPECT UPPER GI SOURCE ACUTE BLOOD LOSS ANEMIA CHRONIC ANTICOAGULATION WITH ELIQUIS FOR AFIB HYPOKALEMIA UTI AFIB DM Bovine Aortic Valve Replacement Assessment and Plan ACUTE GI BLEEDING - SUSPECT UPPER GI SOURCE ACUTE BLOOD LOSS ANEMIA CHRONIC ANTICOAGULATION WITH ELIQUIS FOR AFIB HYPOKALEMIA UTI AFIB DM Bovine Aortic Valve Replacement ACUTE GI BLEEDING - SUSPECT UPPER GI SOURCE - DEFER TO DR. CUMMINGS - PLANNING ON SCOPE TODAY - CONTINUE WITH IV PROTONIX - NPO STATUS AT THIS TIME - SERIALLY MONITOR H AND H HYPOKALEMIA - IV POTASSIUM FOR REPLACEMENT, MONITOR LABS UTI - WAITING ON URINE CULTURE REPORT, IV ROCEPHIN AFIB - STABLE RATE, RESUME HOME MEDICATION EXCEPT FOR NOAC DM - HOLD HOME REGIMEN FOR NOW SINCE HE IS NPO Bovine Aortic Valve Replacement - SUPPORTIVE CARE ONLY HX OF EXTREME DELIRIUM ON LAST HOSPITALIZATION WITH CRITICAL CARE MYOPATHY - WILL AMBULATE ABLE, AVOID EXCESSIVE ROOM CHANGES, AVOID EXCESSIVE MOVING FROM ICU TO FLOOR IF ABLE - DUE TO HIS SEVERE DELIRIUM ON HIS LAST ADMISSION WITH PT AT HIGH RISK OF RECURRENCE. Clinical Quality Measures DVT/VTE Risk/Contraindication: Risk Factor Score Per Nursin RFS Level Per Nursing on Admit: 4+=Very High Contraindications-Pharm: Other *list below* Contraindications-Mechi: Other *list below* Other: GI BLEED NATHANIEL OLIVA MD Apr 17, 2020 08:49
[2020-04-17] MEDS ORDERED: FUROSEMIDE 40 MG/4 ML INJ (LASIX) IVP NR (09:00)
[2020-04-17] MEDS: cefTRIAXone FOR IV USE 1,000 MG in WATER (STERILE) FOR INJECTION 10 ML IV SCH (11:03)
--- NOTE | 2020-04-17 11:15 | NUR ---
PT IN ENDO ROOM 6 C/O SOB, "CHEST FEELS FUNNY", PAIN IN NECK, LABORED BREATHING NOTED. O2 PLACED ON PT PER OXY MASK AT 10L, PLACED ON MONITOR & NOTIFIED ANESTHESIA- NEW ORDER RECEIVED TO GET 12LEAD EGD.
--- NOTE | 2020-04-17 11:30 | NUR ---
ALTAF GAYLE NOTIFIED OF PT UPDATE. NO NEW ORDERS AT THIS TIME.
--- NOTE | 2020-04-17 11:45 | NUR ---
ALTAF AT BEDSIDE TO ASSESS PT.
[2020-04-17] MEDS ORDERED: KCL 20 MEQ TAB (K-DUR) PO NR (12:00)
[2020-04-17] MEDS ORDERED: LACTATED RINGERS 1,000 ML IV ONE (12:28)
[2020-04-17] MEDS ORDERED: PROPOFOL INJECTION 50 ML IV ONE (12:29)
[2020-04-17] MEDS ORDERED: HURRICAINE EXT TUBE (BENZOCAINE) ONE (12:41)
[2020-04-17] MEDS ORDERED: LACTATED RINGERS 1,000 ML IV STA (12:41)
[2020-04-17] MEDS ORDERED: HURRICAINE EXT TUBE (BENZOCAINE) XX PRN (12:45)
--- NOTE | 2020-04-17 14:22 | NUR ---
CM/SS attempted to visit with patient. Patient was taken down for a procedure. CM/SS will continue to follow.
--- NOTE | 2020-04-17 15:50 | Anesthesia-General Post-Op ---
MAC Patient Condition Mental Status/LOC: Same as Preop Cardiovascular: Satisfactory Nausea/Vomiting: Absent Respiratory: Satisfactory Pain: Controlled Complications: Absent Post Op Complications Complications None Follow Up Care/Instructions Patient Instructions None needed. Anesthesiology Discharge Order Discharge Order Patient is doing well, no complaints, stable vital signs, no apparent adverse anesthesia problems. No complications reported per nursing. ALTAF GAYLE CRNA Apr 17, 2020 15:50
[2020-04-17] MEDS: dilTIAZem120 MG (CARDIZEM CD) CAP PO SCH (15:53)
[2020-04-17] MEDS: TAMSULOSIN 0.4 MG (FLOMAX) CAP PO SCH (20:54)
[2020-04-17] MEDS: ZOLPIDEM 5 MG (AMBIEN) TAB PO SCH (20:54)
[2020-04-17] MEDS ORDERED: NON-FORMULARY MEDICATION 1 EA EA (Mirabegron (Myrbetriq) 50 MG) PO SCH (21:00)
[2020-04-18] VITALS (24 sets, daily range): BP systolic 97–130; BP diastolic 62–94
--- NOTE | 2020-04-18 00:58 | OPERATIVE REPORT ---
DATE OF SERVICE: 04/17/2020 PREOPERATIVE DIAGNOSIS: Anemia, suspect upper gastrointestinal bleed, postoperative gastritis of cardia of stomach. PROCEDURE: EGD. SURGEON: Emma Campbell DO ANESTHESIA: Per CEILING INSTALLER. ESTIMATED BLOOD LOSS: None. COMPLICATIONS: None. INDICATIONS: The patient is an 84-year-old male who has been having dark black stools and was found to be anemic. He was admitted and given blood transfusions. He has been on Protonix. He understands risks and benefits of procedure and wished to proceed with procedure. Consent was signed in the chart. DESCRIPTION OF PROCEDURE: The patient was taken to the endoscopy suite, placed in left lateral recumbent position. Timeout was performed. Scope was inserted in mouth, down the esophagus, stomach and into the duodenum without difficulty. There were no polyps, masses or ulcerations within the duodenum. Scope was slowly retracted back into the stomach where it was further insufflated. No polyps, masses or ulcerations within the antrum. Scope was retroflexed noting some gastritis in the cardia that I suspect is the source of his bleeding. Scope was returned to its normal position, slowly withdrawn to distal esophagus, which had no polyps, masses or ulcerations, no erythematous changes. Scope was slowly retracted back until completely removed. The patient tolerated procedure well without any complications and taken to recovery room in stable condition. RECOMMENDATIONS: The patient to continue on current medical management. If he has a drop in hemoglobin, we would repeat EGD. I feel this is the area of the cardia was likely the source; however, continues to drop, we would also recommended colonoscopy. Job ID: [id number] DocumentID: [id number] Dictated Date: 04/17/2020 15:33:57 Cement Handler Date: 04/18/2020 00:57:09 Dictated By: EMMA CAMPBELL DO
[2020-04-18 02:57] LABS: BASOPHILS % (AUTO) 1 % (0-10); EOSINOPHILS # (AUTO) 0.1 10^3/uL (0.0-0.3); EOSINOPHILS % (AUTO) 2 % (0-10); HEMATOCRIT 25 % (40-54); HEMOGLOBIN 7.7 g/dL (13.3-17.7); LYMPHOCYTES # (AUTO) 0.6 10^3/uL (1.0-4.0); LYMPHOCYTES % (AUTO) 8 % (12-44); MEAN CORPUSCULAR HEMOGLOBIN 28 pg (25-34); MEAN CORPUSCULAR HGB CONC 31 g/dL (32-36); MEAN CORPUSCULAR VOLUME 89 fL (80-99); MEAN PLATELET VOLUME 10.2 fL (9.0-12.2); MONOCYTES # (AUTO) 0.7 10^3/uL (0.0-1.0); MONOCYTES % (AUTO) 9 % (0-12); NEUTROPHILS # (AUTO) 6.1 10^3/uL (1.8-7.8); NEUTROPHILS % (AUTO) 80 % (42-75); PLATELET COUNT 239 10^3/uL (130-400); WHITE BLOOD COUNT 7.7 10^3/uL (4.3-11.0)
[2020-04-18 03:00] LABS: POTASSIUM 3.6 MMOL/L (3.6-5.0)
[2020-04-18 03:01] LABS: CALCIUM 8.3 MG/DL (8.5-10.1)
[2020-04-18 03:05] LABS: CREATININE SERUM 1.21 MG/DL (0.60-1.30); PHOSPHORUS 3.1 MG/DL (2.3-4.7)
--- NOTE | 2020-04-18 04:22 | Pulmonary Progress Note ---
CHRISTOPHER FRANCISCO MED STUDENT 04/18/20 0422: Subjective Date Seen by a Provider: Apr 18, 2020 Time Seen by a Provider: 04:05 Subjective/Events-last exam Igor Glez is an 84 year old man being seen due to melena and anemia. He had an EGD yesterday, has noticed tenderness in his neck since then. No other complaints. Denies having any more SOB. Denies light headedness, n/v, abdominal pain. Review of Systems General: No Chills, No Fatigue HEENT: No Sinus Congestion, No Sore Throat Pulmonary: No Dyspnea (reports he is no longer SOB), No Cough Cardiovascular: Edema (b/l LE); No: Chest Pain, Lt Headedness Gastrointestinal: Melena; No: Nausea, Abdominal Pain, Diarrhea, Constipation Genitourinary: No Dysuria, No Frequency Sepsis Event Evaluation Height, Weight, BMI Height: '" Weight: lbs. oz. kg; 30.16 BMI Method: Exam Exam Vital Signs Date Time Temp Pulse Resp B/P (MAP) Pulse Ox O2 Delivery O2 Flow Rate FiO2 04/18/20 03:00 98 24 Room Air 04/18/20 02:00 89 18 118/74 (89) 96 Room Air 04/18/20 01:00 96 04/18/20 01:00 92 15 117/64 (81) Room Air 04/18/20 00:48 36.0 04/18/20 00:00 98 Room Air 04/18/20 00:00 84 16 113/62 (79) Room Air 04/17/20 23:00 89 15 122/66 (84) Room Air 04/17/20 22:00 90 20 110/66 (81) Room Air 04/17/20 21:00 82 17 100/69 (79) Room Air 04/17/20 20:00 98 Room Air 04/17/20 20:00 82 31 110/77 (88) Room Air 04/17/20 19:19 36.2 04/17/20 19:00 90 04/17/20 19:00 92 16 121/68 (85) Room Air 04/17/20 18:00 90 107/66 (80) Room Air 04/17/20 17:00 98 14 108/83 (91) 95 Room Air 04/17/20 16:04 98 Room Air 04/17/20 16:00 84 19 108/70 (83) 98 Room Air 04/17/20 15:24 36.1 04/17/20 15:00 118/68 (85) Room Air 04/17/20 14:28 98 Room Air 04/17/20 14:00 128/63 (84) Room Air 04/17/20 13:13 90 04/17/20 13:00 101/59 (73) Room Air 04/17/20 12:55 93 18 96 OxyMask 5 04/17/20 12:50 92 18 99 OxyMask 10 04/17/20 12:00 Room Air 04/17/20 11:00 97 19 118/83 (95) 99 Room Air 04/17/20 10:00 94 18 112/94 (100) 87 Room Air 04/17/20 09:00 108 21 96/81 (86) 100 Room Air 04/17/20 08:00 84 17 135/87 (103) 94 Room Air 04/17/20 07:38 98 Room Air 04/17/20 07:38 36.1 04/17/20 07:29 87 04/17/20 07:00 88 41 136/93 (107) 93 Room Air 04/17/20 06:00 90 24 125/68 (87) 98 Room Air 04/17/20 05:00 93 27 127/70 (89) 97 Room Air I & O 04/18/20 07:00 Intake Total 1450 ml Output Total 2300 ml Balance -850 ml Height & Weight Height: '" Weight: lbs. oz. kg; 30.16 BMI Method: General Appearance: No Apparent Distress, WD/WN HEENT: PERRL/EOMI, Normal ENT Inspection Neck: Normal Inspection, Non Tender, Supple Respiratory: Chest Non Tender, No Accessory Muscle Use, No Respiratory Distress, Crackles Cardiovascular: Normal Peripheral Pulses, Systolic Murmur, Irregularly Irreg ular Capillary Refill: Less Than 3 Seconds Peripheral Pulses: 2+ Dorsalis Pedis (R), 2+ Left Dors-Pedis (L), 2+ Radial Pulses (R), 2+ Radial Pulses (L) Gastrointestinal: non tender, soft, no organomegaly, abnormal bowel sounds (hypoactive) Extremity: Normal Inspection, Non Tender, Pedal Edema Neurologic/Psychiatric: Alert, Oriented x3, Normal Mood/Affect Skin: Warm/Dry, Pallor (improved) Lymphatic: No Adenopathy Results Lab Laboratory Tests 04/16/20 10:00 04/16/20 12:10 04/16/20 15:50 04/16/20 20:15 04/17/20 03:06 04/18/20 02:32 Assessment/Plan Assessment/Plan Anemia s/p 4 units of PRBC No PRBC transfusion since 04/17 04/18 Hgb 7.7, down from 8.1 on 04/17 04/17 BNP 397.2, CXR shows mild increase in the atelectasis/infiltrate in each lower lobe Monitor Acute GIB - probably upper General surgery following, NPO EGD 04/17 - gastritis noted as suspected bleeding source, recommended monitoring anemia and considering colonoscopy if Hgb continues to fall Protonix IV BID Hold Eliquis Monitor Asymptomatic bacteriuria UA culture shows Proteus mirabilis, sensitivities pending Has been asymptomatic, latest vitals show HR 89, RR 19, last WBC 7.7, he has been afebrile. Monitor, consider antibiotics if symptoms develop or condition worsens Afib- controlled monitor DM continue SSI Bovine Aortic Valve Replacement MYKE CORREIA DO 04/18/20 0706: Assessment/Plan Assessment/Plan Anemia s/p 4 units of PRBC No PRBC transfusion since 04/17 04/18 Hgb 7.7, down from 8.1 on 04/17 04/17 BNP 397.2, CXR shows mild increase in the atelectasis/infiltrate in each lower lobe Monitor Pulmonary edema -Give lasix 40mg x 1 Acute GIB - probably upper General surgery following, NPO EGD 04/17 - gastritis noted as suspected bleeding source, recommended monitoring anemia and considering colonoscopy if Hgb continues to fall Protonix IV BID Hold Eliquis Monitor Asymptomatic bacteriuria UA culture shows Proteus mirabilis, sensitivities pending Has been asymptomatic, latest vitals show HR 89, RR 19, last WBC 7.7, he has been afebrile. Monitor, consider antibiotics if symptoms develop or condition worsens Afib- controlled monitor DM continue SSI Bovine Aortic Valve Replacement I am going to sign off after pt transfers to 4th floor. Please call with any questions or concerns. CHRISTOPHER FRANCISCO MED STUDENT Apr 18, 2020 04:22 MYKE CORREIA DO Apr 18, 2020 07:06
[2020-04-18] MEDS: CATHETER FLUSH 10 ML SYR IV SCH ×3 (06:06→21:03)
[2020-04-18] MEDS: inSUlin ASPART (NovoLOG) 1 UNIT/0.01 ML (CHARGE PER UNIT) SC SCH ×4 (06:06→20:21)
[2020-04-18] MEDS ORDERED: FUROSEMIDE 40 MG/4 ML INJ (LASIX) IVP NR (07:15)
[2020-04-18] MEDS ORDERED: KCL 20 MEQ TAB (K-DUR) PO NR (07:15)
--- NOTE | 2020-04-18 07:32 | Progress Note - Surgery ---
EVITA NORWOOD MED STUDENT 04/18/20 0732: Subjective Date Seen by a Provider: Apr 18, 2020 Time Seen by a Provider: 07:05 Subjective/Events-last exam Pt says he is doing well today and denies CP, SOB, nausea, or vomiting. Says his last BM was yesterday and it was dark colored at that time. EGD was scheduled for yesterday and pt had some dyspnea prior. Decision was made to proceed with EGD and pt did well afterwards. Nurse states pt had some confusion afterwards but is doing well now and thinks this was due to the anesthesia. Hgb is 7.7 today from 8.1 yesterday. Has not had a transfusion since yesterday. WBC is 7.7 from 11.7 yesterday. Objective Exam Vital Signs Date Time Temp Pulse Resp B/P (MAP) Pulse Ox O2 Delivery O2 Flow Rate FiO2 04/18/20 06:00 89 19 117/68 (84) Room Air 04/18/20 05:00 93 23 130/73 (92) Room Air 04/18/20 04:00 36.6 04/18/20 04:00 92 22 113/64 (80) Room Air 04/18/20 04:00 98 Room Air 04/18/20 03:00 98 24 Room Air 04/18/20 02:00 89 18 118/74 (89) 96 Room Air 04/18/20 01:00 96 04/18/20 01:00 92 15 117/64 (81) Room Air 04/18/20 00:48 36.0 04/18/20 00:00 98 Room Air 04/18/20 00:00 84 16 113/62 (79) Room Air 04/17/20 23:00 89 15 122/66 (84) Room Air 04/17/20 22:00 90 20 110/66 (81) Room Air 04/17/20 21:00 82 17 100/69 (79) Room Air 04/17/20 20:00 98 Room Air 04/17/20 20:00 82 31 110/77 (88) Room Air 04/17/20 19:19 36.2 04/17/20 19:00 90 04/17/20 19:00 92 16 121/68 (85) Room Air 04/17/20 18:00 90 107/66 (80) Room Air 04/17/20 17:00 98 14 108/83 (91) 95 Room Air 04/17/20 16:04 98 Room Air 04/17/20 16:00 84 19 108/70 (83) 98 Room Air 04/17/20 15:24 36.1 04/17/20 15:00 118/68 (85) Room Air 04/17/20 14:28 98 Room Air 04/17/20 14:00 128/63 (84) Room Air 04/17/20 13:13 90 04/17/20 13:00 101/59 (73) Room Air 04/17/20 12:55 93 18 96 OxyMask 5 04/17/20 12:50 92 18 99 OxyMask 10 04/17/20 12:00 Room Air 04/17/20 11:00 97 19 118/83 (95) 99 Room Air 04/17/20 10:00 94 18 112/94 (100) 87 Room Air 04/17/20 09:00 108 21 96/81 (86) 100 Room Air 04/17/20 08:00 84 17 135/87 (103) 94 Room Air 04/17/20 07:38 98 Room Air 04/17/20 07:38 36.1 04/17/20 07:29 87 I & O 04/18/20 07:00 Intake Total 1650 ml Output Total 2300 ml Balance -650 ml Capillary Refill : Less Than 3 Seconds General Appearance: No Apparent Distress, WD/WN HEENT: PERRL/EOMI, Normal ENT Inspection Neck: Normal Inspection, Supple Respiratory: Chest Non Tender, No Accessory Muscle Use, No Respiratory Distress Cardiovascular: Normal Peripheral Pulses, Irregularly Irregular, Other (borderline tachycardic at 98) Peripheral Pulses: 2+ Dorsalis Pedis (R), 2+ Left Dors-Pedis (L), 2+ Radial Pulses (R), 2+ Radial Pulses (L) Gastrointestinal: non tender, soft, no organomegaly Extremity: Normal Inspection, Non Tender Neurologic/Psychiatric: Alert, Oriented x3, Normal Mood/Affect Skin: Warm/Dry, Pallor (improved) Lymphatic: No Adenopathy Results Lab Laboratory Tests 04/17/20 10:45: Coronavirus (COVID-19)(PCR) Negative 04/17/20 11:29: Lab Scanned Report Transfusion Reaction Form 04/17/20 16:09: Glucometer 148H 04/17/20 20:18: Glucometer 118H 04/18/20 02:32: White Blood Count 7.7, Red Blood Count 2.76L, Hemoglobin 7.7L, Hematocrit 25L, Mean Corpuscular Volume 89, Mean Corpuscular Hemoglobin 28, Mean Corpuscular Hemoglobin Concent 31L, Red Cell Distribution Width 19.2H, Platelet Count 239, Mean Platelet Volume 10.2, Immature Granulocyte % (Auto) 1, Neutrophils (%) (Auto) 80H, Lymphocytes (%) (Auto) 8L, Monocytes (%) (Auto) 9, Eosinophils (%) (Auto) 2, Basophils (%) (Auto) 1, Neutrophils # (Auto) 6.1, Lymphocytes # (Auto) 0.6L, Monocytes # (Auto) 0.7, Eosinophils # (Auto) 0.1, Basophils # (Auto) 0.0, Immature Granulocyte # (Auto) 0.1, Sodium Level 140, Potassium Level 3.6, Chloride Level 108H, Carbon Dioxide Level 22, Anion Gap 10, Blood Urea Nitrogen 32H, Creatinine 1.21, Estimat Glomerular Filtration Rate 57, BUN/Creatinine Ratio 26, Glucose Level 109H, Calcium Level 8.3L, Phosphorus Level 3.1, Magnesium Level 2.0 Microbiology 04/15/20 Urine Culture - Preliminary, Resulted Proteus mirabilis 04/15/20 MRSA Screen - Final, Complete MRSA not isolated Assessment/Plan Assessment/Plan Assessment/Plan fall anemia secondary to upper gi bleed dark stools/melena long-term anticoagulation Protonix IV hydration Clear liquid diet Eliquis being held monitor labs transfuse prbc as needed Clinical Quality Measures DVT/VTE Risk/Contraindication: Risk Factor Score Per Nursin RFS Level Per Nursing on Admit: 4+=Very High Contraindications-Pharm: Other *list below* Contraindications-Mechi: Other *list below* Other: GI BLEED EMMA CAMPBELL DO 04/18/202140: Subjective Subjective/Events-last exam Feeling well today. Tolerating clears. Hemoglobin minimal drop to 7.7 from 8.1. Patient with no abdominal pain. Denies any nausea vomiting fever sweats chills shortness of breath or chest pain. 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 Norm as Tested Skin: Warm/Dry, Pallor Lymphatic: No Adenopathy Assessment/Plan Assessment/Plan Assessment/Plan fall anemia secondary to upper gi bleed dark stools/melena long-term anticoagulation Gastritis of cardia of stomach Protonix IV hydration Clear liquid diet Eliquis being held monitor labs transfuse prbc as needed If continues to drop hemoglobin would re-scope upper and also consider colonoscopy Supervisory-Addendum Brief Verification & Attestation Participated in pt care: history, MDM, physical Personally performed: exam, history, MDM, supervision of care Care discussed with: Medical Student Procedures: n/a Results interpretation: Verified all documentation Verification and Attestation of Medical Student E/M Service A medical student performed and documented this service in my presence. I reviewed and verified all information documented by the medical student and made modifications to such information, when appropriate. I personally performed the physical exam and medical decision making. Emma Campbell, Apr 18, 2020,21:41 EVITA NORWOOD MED STUDENT Apr 18, 2020 07:32 EMMA CAMPBELL DO Apr 18, 2020 21:41
[2020-04-18] MEDS: PANTOPRAZOLE 40 MG (PROTONIX) VIAL IV SCH ×2 (08:01→18:36)
[2020-04-18] MEDS: cefTRIAXone FOR IV USE 1,000 MG in WATER (STERILE) FOR INJECTION 10 ML IV SCH (08:01)
[2020-04-18] MEDS: dilTIAZem120 MG (CARDIZEM CD) CAP PO SCH (08:01)
[2020-04-18] MEDS ORDERED: HYDROCORTISONE 100 MG/2 ML (Solu-CORTEF) VIAL IV PRN (08:45)
[2020-04-18] MEDS ORDERED: RT-ALBUTEROL SULF 2.5 MG/3 ML PRE-MIX VIAL IH PRN (08:45)
[2020-04-18] MEDS ORDERED: IRON DEXTRAN INJECTION 1,000 MG in NS (IVPB) 250 ML IV ONE (08:45)
[2020-04-18] MEDS ORDERED: IRON DEXTRAN INJECTION 25 MG in NS (IVPB) 5.75 ML IV ONE (08:45)
[2020-04-18] MEDS ORDERED: EPINEPHrine INJECTION 1 MG/ML AMP IM PRN (08:45)
[2020-04-18] MEDS ORDERED: diphenhydrAMINE 50 MG/ML INJ (BENADRYL) IV PRN (08:45)
--- NOTE | 2020-04-18 08:59 | Progress Note ---
Subjective Subjective Date Seen by Provider: Apr 18, 2020 Time Seen by Provider: 08:30 PER STAFF - HE HAD A LITTLE DELIRIUM LAST NIGHT, BUT IT CLEARED QUICKLY AND HE HAS NOT HAD ANY OF THOSE SIMILAR SYMPTOMS TODAY. THEY STATE THAT HE DID WELL WITH THE SCOPE YESTERDAY Review of Systems General: No Chills, No Fatigue HEENT: No Sinus Congestion, No Sore Throat Pulmonary: Dyspnea; No Cough Cardiovascular: No: Chest Pain, Palpitations, Lt Headedness Gastrointestinal: Melena; No: Nausea, Abdominal Pain Genitourinary: No Dysuria, No Frequency Musculoskeletal: No: leg pain Neurological: No: Weakness, Numbness All Other Systems Reviewed All Other Systems Reviewed: Yes Objective Exam Vital Signs Vital Signs - First Documented 04/15/20 17:13 Temp 36.9 Pulse 87 Resp 18 B/P (MAP) 104/65 (78) Pulse Ox 100 O2 Delivery Nasal Cannula O2 Flow Rate 2.00 Capillary Refill : Less Than 3 Seconds General Appearance: No Apparent Distress, WD/WN Eyes: Bilateral Eye Normal Inspection, Bilateral Eye PERRL, Bilateral Eye EOMI HEENT: PERRL/EOMI, Normal ENT Inspection Neck: Normal Inspection, Non Tender, Supple Respiratory: Chest Non Tender, No Accessory Muscle Use, No Respiratory Distress Cardiovascular: Normal Peripheral Pulses, Irregularly Irregular Gastrointestinal: No Organomegaly, No Pulsatile Mass, Non Tender, Abnormal Bowel Sounds (HYPOACTIVE BOWEL SOUNDS ) Rectal: Deferred Back: Normal Inspection, No Vertebral Tenderness Extremity: Normal Inspection, Non Tender Neurologic/Psychiatric: Alert, Oriented x3, Normal Mood/Affect Skin: Warm/Dry, Pallor (improved) Lymphatic: No Adenopathy Results Lab Laboratory Tests 04/17/20 10:45: Coronavirus (COVID-19)(PCR) Negative 04/17/20 11:29: Lab Scanned Report Transfusion Reaction Form 04/17/20 16:09: Glucometer 148H 04/17/20 20:18: Glucometer 118H 04/18/20 02:32: White Blood Count 7.7, Red Blood Count 2.76L, Hemoglobin 7.7L, Hematocrit 25L, Mean Corpuscular Volume 89, Mean Corpuscular Hemoglobin 28, Mean Corpuscular Hemoglobin Concent 31L, Red Cell Distribution Width 19.2H, Platelet Count 239, Mean Platelet Volume 10.2, Immature Granulocyte % (Auto) 1, Neutrophils (%) (Auto) 80H, Lymphocytes (%) (Auto) 8L, Monocytes (%) (Auto) 9, Eosinophils (%) (Auto) 2, Basophils (%) (Auto) 1, Neutrophils # (Auto) 6.1, Lymphocytes # (Auto) 0.6L, Monocytes # (Auto) 0.7, Eosinophils # (Auto) 0.1, Basophils # (Auto) 0.0, Immature Granulocyte # (Auto) 0.1, Sodium Level 140, Potassium Level 3.6, Chloride Level 108H, Carbon Dioxide Level 22, Anion Gap 10, Blood Urea Nitrogen 32H, Creatinine 1.21, Estimat Glomerular Filtration Rate 57, BUN/Creatinine Ratio 26, Glucose Level 109H, Calcium Level 8.3L, Phosphorus Level 3.1, Magnesium Level 2.0 Microbiology 04/15/20 Urine Culture - Preliminary, Resulted Proteus mirabilis 04/15/20 MRSA Screen - Final, Complete MRSA not isolated Assessment/Plan Assessment/Plan Admission Dx ACUTE GI BLEEDING - SUSPECT UPPER GI SOURCE ACUTE BLOOD LOSS ANEMIA CHRONIC ANTICOAGULATION WITH ELIQUIS FOR AFIB HYPOKALEMIA UTI AFIB DM Bovine Aortic Valve Replacement Assessment and Plan ACUTE GI BLEEDING - SUSPECT UPPER GI SOURCE ACUTE BLOOD LOSS ANEMIA CHRONIC ANTICOAGULATION WITH ELIQUIS FOR AFIB HYPOKALEMIA UTI AFIB DM Bovine Aortic Valve Replacement ACUTE GI BLEEDING - SUSPECT UPPER GI SOURCE - DEFER TO DR. CUMMINGS - EGD SHOWED IRRITATION OF CARDIA IN STOMACH - NO ULCERATIVE BLEEDING SITE. - CONTINUE WITH IV PROTONIX - SERIALLY MONITOR H AND H - IRON DEFICIENCY - GIVE DOSE OF IRON IV TODAY HYPOKALEMIA - IV POTASSIUM FOR REPLACEMENT, MONITOR LABS UTI - WAITING ON URINE CULTURE REPORT, IV ROCEPHIN AFIB - STABLE RATE, RESUME HOME MEDICATION EXCEPT FOR NOAC DM - HOLD HOME REGIMEN FOR NOW SINCE HE IS NPO Bovine Aortic Valve Replacement - SUPPORTIVE CARE ONLY HX OF EXTREME DELIRIUM ON LAST HOSPITALIZATION WITH CRITICAL CARE MYOPATHY - WILL AMBULATE ABLE, AVOID EXCESSIVE ROOM CHANGES, AVOID EXCESSIVE MOVING FROM ICU TO FLOOR IF ABLE - DUE TO HIS SEVERE DELIRIUM ON HIS LAST ADMISSION WITH PT AT HIGH RISK OF RECURRENCE. Admission Dx ACUTE GI BLEEDING - SUSPECT UPPER GI SOURCE ACUTE BLOOD LOSS ANEMIA CHRONIC ANTICOAGULATION WITH ELIQUIS FOR AFIB HYPOKALEMIA UTI AFIB DM Bovine Aortic Valve Replacement Clinical Quality Measures Admission Status Admission Dx ACUTE GI BLEEDING - SUSPECT UPPER GI SOURCE ACUTE BLOOD LOSS ANEMIA CHRONIC ANTICOAGULATION WITH ELIQUIS FOR AFIB HYPOKALEMIA UTI AFIB DM Bovine Aortic Valve Replacement DVT/VTE Risk/Contraindication: Risk Factor Score Per Nursin RFS Level Per Nursing on Admit: 4+=Very High Contraindications-Pharm: Other *list below* Contraindications-Mechi: Other *list below* Other: GI BLEED NATHANIEL OLIVA MD Apr 18, 2020 08:59
[2020-04-18] MEDS: NS IV 500 ML 500 ML IV SCH (10:34)
--- NOTE | 2020-04-18 14:15 | Physician Query Clarification ---
"Physician Query-General Query to Physician: The medical record reflects the following clinical scenario: History/Risk factors: Home meds: ASA and Eliquis Clinical Findings: HGB down to 4.9, EGD showing Gastritis Treatment: Transfused 4 units, EGD, Holding Eliquis monitoring H/H Question: What condition best reflects the above clinical scenario? Please document response in the Progress notes or Discharge Summary. 1. Upper GI bleed likely due to Anticoagulants 2. Acute GI Bleeding/Chronic Anticoagulation (as currently documented) 3. Other , with explanation of the clinical findings 4. Clinically undetermined, no explanation for the clinical findings Please remember a lack of response to the above will prompt a phone page by CDI/coding staff In responding to this query, please exercise your independent professional judgment. The purpose of this communication is to more accurately reflect the complexity of your patients condition. The fact that a question is asked does not imply that any particular answer is desired or expected. Thank you for timely response to this clarification. Melvina Goodman, MSN, RN RN Specialist-Clinical Doc Improvement CD -Health Info Mgmt Operations [address] [facility] t: [phone] | f: [phone] If you are unable to reach me at my extension, I may be working from home. Satish oakes contact me at [phone] PHYSICIAN RESPONSE: Based on the clinical findings in the record, please respond to the query above on this document as an addendum. Physician Response: Physician Response acute gi bleeding due to anticoagulation and oral iron use If you have questions please contact: Industrial Workers: Ext: Thank you for your time and cooperation. Clinical Wine Cellar Stock Clerk/Industrial Workers This is a permanent part of the medical record MELVINA GOODMAN Apr 18, 2020 14:15 NATHANIEL OLIVA MD Apr 19, 2020 10:46"
--- NOTE | 2020-04-18 14:26 | NUR ---
SEBASTIAN/RAOUL visited with patient for discharge planning. Plan: Patient will return home at time of discharge with a script for Outpatient Physical Therapy. SEBASTIAN/RAOUL visited with the patient. He reports that he is doing well today. He was pleasant and willing to discuss discharge. He states that he lives a home with his Shyla and she helps take of his medications. He states he does get around well but has to use his walker every once in a while. The patent stated his or daughter Arely would know more. SEBASTIAN/SS asked for permission to call Shyla or Arely. He gave verbal consent. SEBASTIAN/SS attempted to contact patient's Shyla. She is in the hospital having surgery today. SEBASTIAN/SS contacted the patient's daughter Arely. She reports that the patient has been doing well at home and with outpatient physical therapy until he started getting weak. The patient was discharged from Inpatient Rehab with [facility]. He is not currently on service. Arely states that the patient was participating in Outpatient physical therapy through [facility]. SEBASTIAN/RAOUL reached out to the patient's physician to discuss plan of care for discharge. She states that patient will continue with outpatient Physical Therapy. SEBASTIAN/SS informed Arely. No further needs at this time.
--- NOTE | 2020-04-18 14:41 | NUR ---
"RD ASSESSMENT PMHx: pneumonia; hypercholesterolemia; dementia; GERD; DM; BPH PT INTERACTION: Pt was awake and pleasant during nutrition assessment. Note pt has hx of dementia and delirium per chart review. Pt states current appetite is good, but was poor recently. Note avg PO intake 75% x3meal, per chart review. Pt states following a regular diet at home, and has no issues with chewing/swallowing food. Pt states no recent issues with nausea, vomiting, constipation, and diarrhea. Note last BM was 04/17, and pt not currently on bowel regimen per chart review. Pt states unsure of recent wt changes. Note recent 20# wt gain x2mon, per chart review. Pt states current DM management is pretty good. Note unable to determine recent HbA1c, per chart review. ABNORMAL NUTRITION-RELATED LAB VALUES LOW: Ca 8.3 HIGH: Cl 108; BUN 32; glu 109 Est. kcal needs: 2000 kcal | 20 kcal/kg Est. Pro needs: 80 g Pro | 0.8 g Pro/kg PES STATEMENT: Given current PO intake, no nutrition diagnosis at this time (NO-1.1) INTERVENTION: Continue with current diet order of Clear Liquid diet. Would recommend diet advancement as medically able and as tolerated. Did not offer diet education on DM management at this time, d/t pt's dementia. Will offer diet education with family present. Will continue to follow and reassess as pt needs, intake, and status change. Haylee Acuña, MS, RD, LD"
[2020-04-18] MEDS: TAMSULOSIN 0.4 MG (FLOMAX) CAP PO SCH (21:31)
[2020-04-18] MEDS: ZOLPIDEM 5 MG (AMBIEN) TAB PO SCH (21:31)
[2020-04-19] VITALS (11 sets, daily range): BP systolic 99–122; BP diastolic 55–96
[2020-04-19] MEDS: NS IV 500 ML 500 ML IV SCH (01:05)
[2020-04-19 04:11] LABS: POTASSIUM 3.2 MMOL/L (3.6-5.0)
[2020-04-19 04:12] LABS: BASOPHILS % (AUTO) 0 % (0-10); EOSINOPHILS # (AUTO) 0.1 10^3/uL (0.0-0.3); EOSINOPHILS % (AUTO) 2 % (0-10); HEMATOCRIT 26 % (40-54); HEMOGLOBIN 7.8 g/dL (13.3-17.7); LYMPHOCYTES # (AUTO) 0.7 10^3/uL (1.0-4.0); LYMPHOCYTES % (AUTO) 9 % (12-44); MEAN CORPUSCULAR HEMOGLOBIN 27 pg (25-34); MEAN CORPUSCULAR HGB CONC 30 g/dL (32-36); MEAN CORPUSCULAR VOLUME 90 fL (80-99); MONOCYTES # (AUTO) 0.6 10^3/uL (0.0-1.0); MONOCYTES % (AUTO) 8 % (0-12); NEUTROPHILS % (AUTO) 81 % (42-75); PLATELET COUNT 250 10^3/uL (130-400); WHITE BLOOD COUNT 7.4 10^3/uL (4.3-11.0)
[2020-04-19 04:13] LABS: CALCIUM 8.3 MG/DL (8.5-10.1)
[2020-04-19 04:17] LABS: CREATININE SERUM 1.2 MG/DL (0.60-1.30); PHOSPHORUS 3.5 MG/DL (2.3-4.7)
[2020-04-19 04:20] LABS: MAGNESIUM 1.9 MG/DL (1.6-2.4)
[2020-04-19] MEDS: inSUlin ASPART (NovoLOG) 1 UNIT/0.01 ML (CHARGE PER UNIT) SC SCH (04:37)
--- NOTE | 2020-04-19 05:01 | Pulmonary Progress Note ---
Subjective Time Seen by a Provider: 05:00 Subjective/Events-last exam No complications noted. Sepsis Event Evaluation Height, Weight, BMI Height: '" Weight: lbs. oz. kg; 30.16 BMI Method: Exam Exam Vital Signs Date Time Temp Pulse Resp B/P (MAP) Pulse Ox O2 Delivery O2 Flow Rate FiO2 04/19/20 03:49 Room Air 04/19/20 03:47 36.6 04/19/20 02:00 83 15 113/70 (84) 98 Room Air 04/19/20 01:00 79 21 112/65 (81) 96 Room Air 04/19/20 01:00 79 04/19/20 00:02 36.2 04/19/20 00:00 Room Air 04/19/20 00:00 85 17 116/59 (78) 98 Room Air 04/18/20 23:00 77 24 116/65 (82) 99 Room Air 04/18/20 22:00 78 37 117/67 (84) 99 Room Air 04/18/20 21:00 86 20 113/76 (88) 93 Room Air 04/18/20 20:00 88 17 97/62 (74) 98 Room Air 04/18/20 19:53 36.2 87 20 110/62 (78) 96 Room Air 04/18/20 19:50 Room Air 04/18/20 19:00 79 21 110/62 (78) Room Air 04/18/20 19:00 79 04/18/20 18:53 Room Air 04/18/20 18:00 79 30 111/65 (80) Room Air 04/18/20 17:00 85 10 100/69 (79) Room Air 04/18/20 16:39 98 Room Air 04/18/20 16:00 86 10 110/72 (85) Room Air 04/18/20 16:00 36.8 04/18/20 15:00 82 15 121/62 (81) Room Air 04/18/20 14:00 90 24 120/71 (87) Room Air 04/18/20 13:00 85 24 101/70 (80) Room Air 04/18/20 13:00 105 04/18/20 12:00 98 Room Air 04/18/20 12:00 100 13 122/74 (90) Room Air 04/18/20 11:00 84 18 109/63 (78) Room Air 04/18/20 10:55 Room Air 04/18/20 10:00 87 18 121/79 (93) Room Air 04/18/20 09:00 77 31 109/66 (80) 96 Room Air 04/18/20 08:12 36.3 04/18/20 08:08 98 Room Air 04/18/20 08:00 88 25 107/64 (78) Room Air 04/18/20 07:00 87 04/18/20 07:00 92 10 113/94 (100) Room Air 04/18/20 06:00 89 19 117/68 (84) Room Air I & O 04/19/20 07:00 Intake Total 2276.25 ml Output Total 0 ml Balance 2276.25 ml Height & Weight Height: '" Weight: lbs. oz. 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 Acute GIB - probably upper General surgery following, NPO EGD 04/17 - gastritis noted as suspected bleeding source, recommended monitoring anemia and considering colonoscopy if Hgb continues to fall Protonix IV BID Hold Eliquis Monitor Asymptomatic bacteriuria UA culture shows Proteus mirabilis, sensitivities pending Has been asymptomatic, latest vitals show HR 89, RR 19, last WBC 7.7, he has been afebrile. Monitor, consider antibiotics if symptoms develop or condition worsens Afib- controlled monitor DM continue SSI Bovine Aortic Valve Replacement Probable discharge today. MYKE CORREIA DO Apr 19, 2020 05:01
[2020-04-19] MEDS ORDERED: MAGNESIUM 1 GM/100 ML IVPB 100 ML IV SCH (06:00)
[2020-04-19] MEDS ORDERED: KCL 20 MEQ TAB (K-DUR) PO SCH (06:00)
[2020-04-19] MEDS ORDERED: POTASSIUM CL 10MEQ/50ML IVPB 50 ML IV SCH (06:00)
[2020-04-19] MEDS: CATHETER FLUSH 10 ML SYR IV SCH (06:15)
[2020-04-19] MEDS ORDERED: KCL 20 MEQ TAB (K-DUR) PO ONE ×2 (08:00→10:00)
--- NOTE | 2020-04-19 08:18 | Progress Note ---
Subjective Subjective Time Seen by Provider: 07:40 PT DENIES ANY COMPLAINTS AND FEELS MUCH IMPROVED SINCE HIS ADMISSION. PT IS ALERT AND COMMUNICATING. PTS LAST STOOL WAS YESTERDAY, STOOL WAS MELENA. HGB HAS PROGRESSED TO 7.8 FROM 7.7 YESTERDAY LABS. PERIPHERAL EDEMA IN LE HAS INCREASED SINCE LAST VISIT (04/16), NOW 4+. 04/18 URINE CULTURE SHOWED OVER 100K CFU FOR PROTEUS MIRABILIS. Review of Systems General: No Chills, No Night Sweats, No Fatigue HEENT: No Sinus Congestion, No Sore Throat Pulmonary: No Dyspnea, No Cough, No Pleuritic Chest Pain Cardiovascular: Edema; No: Chest Pain, Palpitations, Lt Headedness Gastrointestinal: Melena; No: Nausea, Vomiting, Abdominal Pain, Diarrhea, Constipation Genitourinary: No Dysuria, No Frequency Musculoskeletal: No: leg pain Neurological: No: Weakness, Numbness All Other Systems Reviewed All Other Systems Reviewed: Yes Objective Exam Vital Signs Vital Signs - First Documented 04/15/20 17:13 Temp 36.9 Pulse 87 Resp 18 B/P (MAP) 104/65 (78) Pulse Ox 100 O2 Delivery Nasal Cannula O2 Flow Rate 2.00 Capillary Refill : Less Than 3 Seconds General Appearance: No Apparent Distress, WD/WN Eyes: Bilateral Eye Normal Inspection, Bilateral Eye PERRL, Bilateral Eye EOMI HEENT: PERRL/EOMI, Moist Mucous Membranes Neck: Full Range of Motion, Non Tender Respiratory: Chest Non Tender, Lungs Clear, Normal Breath Sounds, No Accessory Muscle Use Cardiovascular: Diastolic Murmur (Left lower sternal border), Irregularly Irregular, Other (Valvular click is heard) Gastrointestinal: Normal Bowel Sounds, Non Tender, Soft Rectal: Deferred Back: Normal Inspection, No Vertebral Tenderness Extremity: Normal Capillary Refill, Pedal Edema (LE 4+) Neurologic/Psychiatric: Alert, Oriented x3, No Motor/Sensory Deficits, Normal Mood/Affect, regional transportation manager II-XII Norm as Tested Skin: Normal Color, Warm/Dry Lymphatic: No Adenopathy Results Lab Laboratory Tests 04/18/20 11:36: Glucometer 148H 04/18/20 15:35: Glucometer 106 04/18/20 20:16: Glucometer 98 04/19/20 03:45: White Blood Count 7.4, Red Blood Count 2.85L, Hemoglobin 7.8L, Hematocrit 26L, Mean Corpuscular Volume 90, Mean Corpuscular Hemoglobin 27, Mean Corpuscular H emoglobin Concent 30L, Red Cell Distribution Width 18.8H, Platelet Count 250, Mean Platelet Volume 10.0, Immature Granulocyte % (Auto) 0, Neutrophils (%) (Auto) 81H, Lymphocytes (%) (Auto) 9L, Monocytes (%) (Auto) 8, Eosinophils (%) (Auto) 2, Basophils (%) (Auto) 0, Neutrophils # (Auto) 6.0, Lymphocytes # (Auto) 0.7L, Monocytes # (Auto) 0.6, Eosinophils # (Auto) 0.1, Basophils # (Auto) 0.0, Immature Granulocyte # (Auto) 0.0, Sodium Level 139, Potassium Level 3.2L, Chloride Level 106, Carbon Dioxide Level 22, Anion Gap 11, Blood Urea Nitrogen 27H, Creatinine 1.20, Estimat Glomerular Filtration Rate 58, BUN/Creatinine Ratio 23, Glucose Level 111H, Calcium Level 8.3L, Phosphorus Level 3.5, Magnesium Level 1.9 Microbiology 04/15/20 Urine Culture - Final, Complete Mixed Bacterial Nyasia Proteus mirabilis 04/15/20 MRSA Screen - Final, Complete MRSA not isolated Assessment/Plan Assessment/Plan Admission Dx ACUTE GI BLEEDING & ANEMIA Reason for Inpatient Admission: ACUTE GI BLEEDING - SUSPECT UPPER GI SOURCE ACUTE BLOOD LOSS ANEMIA CHRONIC ANTICOAGULATION WITH ELIQUIS FOR AFIB HYPOKALEMIA HYPOCALCEMIA UTI AFIB DM Bovine Aortic Valve Replacement ACUTE GI BLEEDING - SUSPECT UPPER GI SOURCE - DEFER TO DR. CUMMINGS - EGD SHOWED IRRITATION OF CARDIA IN STOMACH - NO ULCERATIVE BLEEDING SITE. - CONTINUE WITH IV PROTONIX - SERIALLY MONITOR H AND H. HGB CHANGED FROM 7.7 YESTERDAY TO 7.8 TODAY. - IRON DEFICIENCY - GIVE LASIX FOR PERIPHERAL EDEMA HYPOKALEMIA & HYPOCALCEMIA. - IV POTASSIUM FOR REPLACEMENT, POTASSIUM DROPPED DOWN TO 3.2 TODAY. MONITOR CMP. UTI - 04/18 URINE CULTURE SHOWED 100K CFU P. MIRABILIS, IV ROCEPHIN AFIB - STABLE RATE, RESUME HOME MEDICATION EXCEPT FOR NOAC DM - HOLD HOME REGIMEN FOR NOW SINCE HE IS NPO Bovine Aortic Valve Replacement - SUPPORTIVE CARE ONLY HX OF EXTREME DELIRIUM ON LAST HOSPITALIZATION WITH CRITICAL CARE MYOPATHY - WILL AMBULATE ABLE, AVOID EXCESSIVE ROOM CHANGES, AVOID EXCESSIVE MOVING FROM ICU TO FLOOR IF ABLE - DUE TO HIS SEVERE DELIRIUM ON HIS LAST ADMISSION WITH PT AT HIGH RISK OF RECURRENCE. Admission Dx ACUTE GI BLEEDING - Pt to get EGD today - Positive fecal occult, melena visualized. - suspect upper GI bleed. - General surgery following, NPO ACUTE BLOOD LOSS ANEMIA - Hgb 6.5 04/16 up from 4.9 after two units RBC - give 1 unit RBC today, continue to monitor CBC. get Hgb up over 7.0 and transfuse again if nadirs below this value. HYPOKALEMIA - replace potassium. levels at 3.4 on 04/16 CMP. UTI - U/a neg for nitrates, but 1+ H leukocyte esterase, 2-5 squamous epithelial cells and few H urine bacteria. Await for urine culture results. AFIB - HR in 80s consistently, monitor DM - consider resuming home pioglitazone Bovine Aortic Valve Replacement Clinical Quality Measures Admission Status Admission Dx ACUTE GI BLEEDING - Pt to get EGD today - Positive fecal occult, melena visualized. - suspect upper GI bleed. - General surgery following, NPO ACUTE BLOOD LOSS ANEMIA - Hgb 6.5 04/16 up from 4.9 after two units RBC - give 1 unit RBC today, continue to monitor CBC. get Hgb up over 7.0 and transfuse again if nadirs below this value. HYPOKALEMIA - replace potassium. levels at 3.4 on 04/16 CMP. UTI - U/a neg for nitrates, but 1+ H leukocyte esterase, 2-5 squamous epithelial cells and few H urine bacteria. Await for urine culture results. AFIB - HR in 80s consistently, monitor DM - consider resuming home pioglitazone Bovine Aortic Valve Replacement DVT/VTE Risk/Contraindication: Risk Factor Score Per Nursin RFS Level Per Nursing on Admit: 4+=Very High Contraindications-Pharm: Other *list below* Contraindications-Mechi: Other *list below* Other: GI BLEED Supervisory-Addendum Brief Verification & Attestation Participated in pt care: history, physical Personally performed: history Care discussed with: Medical Student Procedures: n/a Results interpretation: Verified all documentation HISTORY AND PE PERFORMED BY CHUY GARRIDO, RE-EVALUATED BY DR OLIVA. SEE MY DC SUMMARY GEOVANNI GARRIDO MED STUDENT Apr 19, 2020 08:18 NATHANIEL OLIVA MD Apr 19, 2020 12:50
--- NOTE | 2020-04-19 08:35 | Diagnostic Imaging Report ---
Indication: Dyspnea, history of gastrointestinal bleed and anemia. Comparison: 04/18/2020. Discussion: Single portable upright view of the chest was obtained. Stable normal heart size. Median sternotomy is stable. Groundglass infiltrates are noted bilaterally, left greater than right, nonspecific. Findings could be seen with pneumonia, viral pneumonia not excluded. Atelectasis or edema may also be present. No pleural fluid or pneumothorax. No osseous abnormality. Impression: 1. Nonspecific bilateral groundglass infiltrates as described, stable. Dictated by: Dictated on workstation # [id number]
[2020-04-19] MEDS ORDERED: KCL 20 MEQ TAB (K-DUR) PO NR (08:45)
--- NOTE | 2020-04-19 09:51 | Progress Note - Surgery ---
Subjective Time Seen by a Provider: 09:38 Subjective/Events-last exam Pt seen and examined, no complaints. Denies abdominal pain, nausea, vomiting and melena. Review of Systems Pulmonary: No Dyspnea, No Cough Cardiovascular: No: Chest Pain Gastrointestinal: No: Nausea, Vomiting, Abdominal Pain Objective Exam Vital Signs Date Time Temp Pulse Resp B/P (MAP) Pulse Ox O2 Delivery O2 Flow Rate FiO2 04/19/20 09:01 36.1 93 16 122/75 (91) 93 Room Air 04/19/20 08:59 93 13 122/75 (91) 97 Room Air 04/19/20 08:00 89 04/19/20 07:27 Room Air 04/19/20 07:08 36.3 04/19/20 07:00 89 04/19/20 07:00 89 10 113/64 (80) 92 Room Air 04/19/20 06:00 88 21 107/61 (76) 92 Room Air 04/19/20 05:00 86 15 111/63 (79) 96 Room Air 04/19/20 04:00 82 24 107/96 (100) 94 Room Air 04/19/20 03:49 Room Air 04/19/20 03:47 36.6 04/19/20 03:00 86 28 99/55 (70) 89 Room Air 04/19/20 02:00 83 15 113/70 (84) 98 Room Air 04/19/20 01:00 79 21 112/65 (81) 96 Room Air 04/19/20 01:00 79 04/19/20 00:02 36.2 04/19/20 00:00 Room Air 04/19/20 00:00 85 17 116/59 (78) 98 Room Air 04/18/20 23:00 77 24 116/65 (82) 99 Room Air 04/18/20 22:00 78 37 117/67 (84) 99 Room Air 04/18/20 21:00 86 20 113/76 (88) 93 Room Air 04/18/20 20:00 88 17 97/62 (74) 98 Room Air 04/18/20 19:53 36.2 87 20 110/62 (78) 96 Room Air 04/18/20 19:50 Room Air 04/18/20 19:00 79 21 110/62 (78) Room Air 04/18/20 19:00 79 04/18/20 18:53 Room Air 04/18/20 18:00 79 30 111/65 (80) Room Air 04/18/20 17:00 85 10 100/69 (79) Room Air 04/18/20 16:39 98 Room Air 04/18/20 16:00 86 10 110/72 (85) Room Air 04/18/20 16:00 36.8 04/18/20 15:00 82 15 121/62 (81) Room Air 04/18/20 14:00 90 24 120/71 (87) Room Air 04/18/20 13:00 85 24 101/70 (80) Room Air 04/18/20 13:00 105 04/18/20 12:00 98 Room Air 04/18/20 12:00 100 13 122/74 (90) Room Air 04/18/20 11:00 84 18 109/63 (78) Room Air 04/18/20 10:55 Room Air 04/18/20 10:00 87 18 121/79 (93) Room Air I & O 04/19/20 07:00 Intake Total 2496.25 ml Output Total 230 ml Balance 2266.25 ml Capillary Refill : Less Than 3 Seconds General Appearance: No Apparent Distress, WD/WN HEENT: PERRL/EOMI, Moist Mucous Membranes Respiratory: Chest Non Tender, Lungs Clear, Normal Breath Sounds, No Accessory Muscle Use Cardiovascular: Diastolic Murmur (Left lower sternal border), Irregularly Irregular, Other (Valvular click is heard) Peripheral Pulses: 2+ Dorsalis Pedis (R), 2+ Left Dors-Pedis (L), 2+ Radial Pulses (R), 2+ Radial Pulses (L) Gastrointestinal: non tender, soft Extremity: Pedal Edema (LE 4+) Neurologic/Psychiatric: Alert, Oriented x3, Normal Mood/Affect Skin: Normal Color, Warm/Dry Results Lab Laboratory Tests 04/18/20 11:36: Glucometer 148H 04/18/20 15:35: Glucometer 106 04/18/20 20:16: Glucometer 98 04/19/20 03:45: White Blood Count 7.4, Red Blood Count 2.85L, Hemoglobin 7.8L, Hematocrit 26L, Mean Corpuscular Volume 90, Mean Corpuscular Hemoglobin 27, Mean Corpuscular Hemoglobin Concent 30L, Red Cell Distribution Width 18.8H, Platelet Count 250, Mean Platelet Volume 10.0, Immature Granulocyte % (Auto) 0, Neutrophils (%) (Auto) 81H, Lymphocytes (%) (Auto) 9L, Monocytes (%) (Auto) 8, Eosinophils (%) (Auto) 2, Basophils (%) (Auto) 0, Neutrophils # (Auto) 6.0, Lymphocytes # (Auto) 0.7L, Monocytes # (Auto) 0.6, Eosinophils # (Auto) 0.1, Basophils # (Auto) 0.0, Immature Granulocyte # (Auto) 0.0, Sodium Level 139, Potassium Level 3.2L, Chloride Level 106, Carbon Dioxide Level 22, Anion Gap 11, Blood Urea Nitrogen 27H, Creatinine 1.20, Estimat Glomerular Filtration Rate 58, BUN/Creatinine Ratio 23, Glucose Level 111H, Calcium Level 8.3L, Phosphorus Level 3.5, Magnesium Level 1.9 Microbiology 04/15/20 Urine Culture - Final, Complete Mixed Bacterial Nyasia Proteus mirabilis 04/15/20 MRSA Screen - Final, Complete MRSA not isolated Assessment/Plan Assessment/Plan Assessment/Plan GI bleed -probably secondary to irritation in Cardia Anemia Afib Pt is anemic but stable and no more episodes of melena. Most likely he bled from the area in the cardia; unfortunately, he is likely to bleed again because he has to be on Eliquis for Afib. He is stable and ok to go from surgery standpoint. Clinical Quality Measures DVT/VTE Risk/Contraindication: Risk Factor Score Per Nursin RFS Level Per Nursing on Admit: 4+=Very High Contraindications-Pharm: Other *list below* Contraindications-Mechi: Other *list below* Other: GI BLEED VIJAYA LEO DO Apr 19, 2020 09:51
--- NOTE | 2020-04-19 10:03 | Discharge Summary ---
Diagnosis/Chief Complaint Date of Admission Apr 15, 2020 at 18:43 Date of Discharge Discharge Date: Apr 19, 2020 Discharge Time: 1200 Admission Diagnosis Admission Diagnosis ACUTE GI BLEEDING - SUSPECT UPPER GI SOURCE ACUTE BLOOD LOSS ANEMIA CHRONIC ANTICOAGULATION WITH ELIQUIS FOR AFIB HYPOKALEMIA UTI AFIB DM Bovine Aortic Valve Replacement Discharge Diagnosis ACUTE GI BLEEDING - FROM CARDIA OF STOMACH ACUTE BLOOD LOSS ANEMIA DUE TO ANTICOAGULATION AND ORAL IRON SUPPLEMENTATION CHRONIC ANTICOAGULATION WITH ELIQUIS FOR AFIB HYPOKALEMIA UTI AFIB DM Bovine Aortic Valve Replacement Reason Hospital Visit PT IS AN 84 Y/O MALE WHO IS WELL KNOWN TO ME FROM CLINIC. HE PRESENTED TO THE HOSPITAL AFTER A SYNCOPAL EPISODE AT HOME, HE WAS TRANSPORTED TO THE ER WHERE HE WAS FOUND TO HAVE A UTI AND ACUTE GASTROINTESTINAL BLEEDING WITH A HEMOGLOBIN OF 4.9 AND REPORTING OF TAR-LIKE STOOLS FOR "A WHILE". HE DENIED ANY CHEST PAIN, SHORTNESS OF BREATH, HEADACHE, ABDOMINAL PAIN, NAUSEA. Discharge Summary Procedures: EGD Consultations DR. CUMMINGS - SURGEON Discharge Physical Examination Allergies: Coded Allergies: No Known Drug Allergies (Unverified , 07/13/17) Vitals & I&Os Vital Signs Date Time Temp Pulse Resp B/P (MAP) Pulse Ox O2 Delivery O2 Flow Rate FiO2 04/19/20 10:07 36.2 90 17 115/73 (87) 97 Room Air 04/17/20 12:55 5 General Appearance: Alert, Oriented X3, Cooperative, No Acute Distress HEENT: Atraumatic, PERRLA, Mucous Memb Moist/[place] Respiratory: Clear to Auscultation Cardiovascular: Regular Rate, Other (II/ MARRY) Abdominal: Normal Bowel Sounds, Soft, No Tenderness Extremities: Other (3+ PITTING EDEMA BILATERAL LOWER LEGS TO KNEES) Skin: No Rashes, No Breakdown Neuro: Cranial Nerves 3-12 NL Psych/Mental Status: Mental Status NL, Mood NL Hospital Course ACUTE GI BLEEDING - FROM CARDIA OF STOMACH ACUTE BLOOD LOSS ANEMIA DUE TO ANTICOAGULATION AND ORAL IRON SUPPLEMENTATION CHRONIC ANTICOAGULATION WITH ELIQUIS FOR AFIB HYPOKALEMIA UTI AFIB DM Bovine Aortic Valve Replacement ACUTE GI BLEEDING - - DEFER TO DR. CUMMINGS - EGD SHOWED IRRITATION OF CARDIA IN STOMACH - NO ULCERATIVE BLEEDING SITE. - CONTINUE WITH IV PROTONIX WHILE IN HOSPITAL, TRANSITIONED TO ORAL PROTONIX BID - SERIALLY MONITOR H AND H - NEXT TO BE DONE ON 04/21/2020 OUTPATIENT - IRON DEFICIENCY - GAVE DOSE OF IRON IV ON 04/18/2020 INSTEAD OF ORAL IRON SUPPLEMENTATION HYPOKALEMIA - PT GIVEN ORAL POTASSIUM FOR REPLACEMENT, MONITOR LABS UTI -PROTEUS - RX SENT TO PHARMACY - [facility] AND FAMILY APPRISED OF NEED TO TALKBACK HOST ANTIBIOTIC AFIB - STABLE RATE, RESUME ELIQUIS ON DISCHARGE AND HOLDING ASPIRIN AT THIS TIME DM - RESUME HOME REGIMEN ON DISCHARGE Bovine Aortic Valve Replacement - SUPPORTIVE CARE ONLY DISCHARGE TO HOME IN CARE OF SPOUSE AND THEIR NIECE WHO IS CARING FOR DOROTHY IN THEIR HOME. PLANNING ON RESUMPTION OF PHYSICAL THERAPY OUTPATIENT ON DISCHARGE AND HE WILL ALSO HAVE LABS DRAWN ON 04/21/2020 HE IS TO STOP HIS ORAL IRON SUPPLEMENTATION DUE TO GI UPSET. Pending Labs Discharge Condition at discharge IMPROVED Instructions to patient/family Please see electronic discharge instructions given to patient. Discharge Medications Reviewed and agree with Discharge Medication list on patient's Discharge Instruction sheet Clinical Quality Measures DVT/VTE Risk/Contraindication: Risk Factor Score Per Nursin RFS Level Per Nursing on Admit: 4+=Very High Contraindications-Pharm: Other *list below* Contraindications-Mechi: Other *list below* Other: GI BLEED NATHANIEL OLIVA MD Apr 19, 2020 10:03
[2020-04-19] MEDS ORDERED: PANT40TA52 PO (10:08)
--- NOTE | 2020-04-19 10:12 | Discharge Inst-Simple/Standard ---
Discharge Inst-Standard Reconcile Patient Problems Problems Reviewed?: Yes Discharge Medications New, Converted or Re-Newed RX: Transmitted to Pharmacy Patient Instructions/Follow Up Plan of Care/Instructions/FU: 1 wk [facility] 2 wks cardiology resume outpatient therapy check labs on TUESDAY at [facility] 04/21/2020 Activity as Tolerated: Yes Discharge Diet: ADA Diet Health Concerns: gi bleeding afib diabetes anemia Return to The Hospital For: return to hospital for acute blood in stools, worsening shortness of breath, worsening gi bleeding NATHANIEL OLIVA MD Apr 19, 2020 10:12
[2020-04-19] MEDS ORDERED: FUROSEMIDE 40 MG/4 ML INJ (LASIX) IVP NR (10:30)
[2020-04-19] MEDS: cefTRIAXone FOR IV USE 1,000 MG in WATER (STERILE) FOR INJECTION 10 ML IV SCH (10:43)
[2020-04-19] MEDS: dilTIAZem120 MG (CARDIZEM CD) CAP PO SCH (10:44)
[2020-04-19] MEDS: PANTOPRAZOLE 40 MG (PROTONIX) VIAL IV SCH (10:44)
[2020-04-19] MEDS ORDERED: AMOX-358 PO (12:47)
== END 2020-04-19 11:15 | disposition home or self-care (01) | DRG 378 ==
LOC: EDUNIT# 17:13 → ER 17:14 → ICU 18:43
PROVIDERS: ADMIT Family Medicine; ATTEND Family Medicine
PROC: 0DJ08ZZ Inspection of Upper Intestinal Tract, Via Natural or Artificial Opening Endoscopic (ICD-10-PCS; principal; 2020-04-17 12:30)
DX: K29.71 Gastritis, unspecified, with bleeding (principal); D62 Acute posthemorrhagic anemia; I48.92 Unspecified atrial flutter; N39.0 Urinary tract infection, site not specified; E11.9 Type 2 diabetes mellitus without complications; I48.91 Unspecified atrial fibrillation; E87.6 Hypokalemia; E83.51 Hypocalcemia; F03.90 Unspecified dementia, unspecified severity, without behavioral disturbance, psychotic disturbance, mood disturbance, and anxiety; E78.00 Pure hypercholesterolemia, unspecified; K21.9 Gastro-esophageal reflux disease without esophagitis; M19.91 Primary osteoarthritis, unspecified site; I25.2 Old myocardial infarction; Z79.01 Long term (current) use of anticoagulants; Z95.2 Presence of prosthetic heart valve; Z87.891 Personal history of nicotine dependence
CPT/HCPCS: 36415; 70450; 71045; 80048; 80053; 81000; 82274; 82330; 82962; 83735; 83880; 84100; 85014; 85018; 85025; 85027; 86850; 86900; 86901; 86920; 87077; 87081; 87088; 87186; 87635; 93005; 93041

== ENCOUNTER → 2020-04-30 | Outpatient (CLI) | payer MEDICARE, OTHER ==
[~2020-04-30] MED LIST changes: +AMOX-358 PO; +APIX5TAB PO; +CHOL100045 PO; +DILT-27 PO; +FERR325T18 PO; +PANT40TA52 PO; +RT-ALBUTEROL SULF 2.5 MG/3 ML PRE-MIX VIAL INH ONE
== END ==
LOC: RT 13:00
PROVIDERS: ATTEND Internal Medicine Interventional Cardiology
DX: I34.0 Nonrheumatic mitral (valve) insufficiency (principal)
CPT/HCPCS: 94060; 94726; 94729

== ENCOUNTER → 2020-04-30 | Outpatient (CLI) | payer MEDICARE, OTHER ==
[~2020-04-30] MED LIST changes: -RT-ALBUTEROL SULF 2.5 MG/3 ML PRE-MIX VIAL INH ONE
[2020-04-30 16:00] LABS: BASOPHILS % (AUTO) 0 % (0-10); EOSINOPHILS % (AUTO) 1 % (0-10); HEMATOCRIT 32 % (40-54); HEMOGLOBIN 9.5 g/dL (13.3-17.7); LYMPHOCYTES # (AUTO) 0.5 10^3/uL (1.0-4.0); LYMPHOCYTES % (AUTO) 9 % (12-44); MEAN CORPUSCULAR HEMOGLOBIN 28 pg (25-34); MEAN CORPUSCULAR HGB CONC 30 g/dL (32-36); MEAN CORPUSCULAR VOLUME 95 fL (80-99); MEAN PLATELET VOLUME 10.6 fL (9.0-12.2); MONOCYTES % (AUTO) 9 % (0-12); NEUTROPHILS # (AUTO) 4.9 10^3/uL (1.8-7.8); NEUTROPHILS % (AUTO) 81 % (42-75); PLATELET COUNT 201 10^3/uL (130-400)
[2020-04-30 16:01] LABS: MONOCYTES # (AUTO) 0.5 10^3/uL (0.0-1.0)
== END ==
LOC: LAB 15:35
PROVIDERS: ATTEND Family Medicine
DX: D64.9 Anemia, unspecified (principal)
CPT/HCPCS: 36415; 85025

== ENCOUNTER 2020-05-25 15:43 | Emergency (ER) | payer MEDICARE, OTHER ==
[~2020-05-25] VITALS: Ht 172 cm; Wt 87.0 kg
--- NOTE | 2020-05-25 15:55 | ED General ---
General Stated Complaint: FALL/R KNEE PAIN History of Present Illness Date Seen by Provider: May 25, 2020 Time Seen by Provider: 15:55 Initial Comments 85-year-old male presents following a syncope event. Patient had just gotten up after having a bowel movement any urinary movement from the stool. after he standing, he became dizzy and had a brief syncope episode. Patient has known mild GI bleed with chronic dark stool. He has some chronic anemia they're concerned that maybe his blood levels too low. Patient's also on a 1 L daily fluid restriction.. Patient complains some mild pain in his right knee otherwise no other complaints. No reports of cough, fever, chills, nausea or vomiting. He denied cp, sob prior to syncope event Allergies and Home Medications Allergies Coded Allergies: No Known Drug Allergies (Unverified , 07/13/17) Home Medications Amoxicillin/Potassium Clav 1 Each Tablet, 1 EACH PO BID Prescribed by: NATHANIEL BARRIENTOS on 04/19/20 1247 Apixaban 5 Mg Tablet, 5 MG PO BID, (Reported) Cholecalciferol (Vitamin D3) 25 Mcg Tablet, 25 MCG PO DAILY, (Reported) Diltiazem HCl 120 Mg Cap.er.24h, 120 MG PO DAILY, (Reported) Lactobac Cmb #3/Fos/Pantethine 1 Each Capsule, 1 EACH PO HS, (Reported) Mirabegron 50 Mg Tab.er.24h, 50 MG PO HS, (Reported) Multivitamin 1 Each Tablet, 1 EACH PO DAILY, (Reported) Pantoprazole Sodium 40 Mg Tablet.dr, 40 MG PO BID Prescribed by: NATHANIEL BARRIENTOS on 04/19/20 1008 Pioglitazone HCl 45 Mg Tablet, 45 MG PO DAILY, (Reported) Pravastatin Sodium 10 Mg Tablet, 10 MG PO HS, (Reported) Tamsulosin HCl 0.4 Mg Cap, 0.4 MG PO HS, (Reported) Zolpidem Tartrate 6.25 Mg Tab.mphase, 6.25 MG PO HS, (Reported) Patient Home Medication List Home Medication List Reviewed: Yes Review of Systems Review of Systems Constitutional: No chills; dizziness; No fever, No malaise, No weakness EENTM: no symptoms reported Respiratory: No cough, No orthopnea, No short of breath Cardiovascular: No chest pain, No palpitations Gastrointestinal: see HPI; No abdominal pain, No nausea, No vomiting Genitourinary: no symptoms reported Musculoskeletal: see HPI Skin: no symptoms reported Psychiatric/Neurological: No Symptoms Reported Past Crzoiai-Xfirtq-Ukxzpz Hx Past Med/Social Hx: Reviewed Nursing Past Med/Soc Hx Patient Social History Type Used: Cigarettes Former Smoker, Quit: Feb 12, 1990 2nd Hand Smoke Exposure: No Recent Foreign Travel: No Contact w/Someone Who Travel: No Recent Hopitalizations: No Immunizations Up To Date Tetanus Booster (TDap): Unknown Date of Pneumonia Vaccine: Feb 13, 2016 Seasonal Allergies Seasonal Allergies: No Past Medical History Surgeries: Yes Appendectomy, Joint Replacement, Orthopedic, Valve Replacement Respiratory: No Pneumonia Currently Using CPAP: No Currently Using BIPAP: No Cardiac: Yes Atrial Fibrillation, High Cholesterol Neurological: No Dementia Reproductive Disorders: No Sexually Transmitted Disease: No HIV/AIDS: No Genitourinary: Yes Benign Prostatic Hyperpl, Prostate Problems Gastrointestinal: No Gastroesophageal Reflux Musculoskeletal: No Arthritis Endocrine: No Diabetes, 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) Hearing Impairment: Hard of Hearing, Bilateral Hearing Aide Cancer: Yes Skin Did You Recieve Any Treatments: Yes What Type of Treatment Did You: Surgical Intervention Psychosocial: No Integumentary: No Blood Disorders: No Family Medical History Alcoholism G8 BROTHER Arthritis 19 MOTHER Completed stroke 19 FATHER Diabetes mellitus 19 MOTHER Hypertension 19 FATHER 19 MOTHER Myocardial infarction G8 SISTER Heart Disease, Hypertension, Stroke Physical Exam Vital Signs Vital Signs - First Documented 05/25/20 15:44 Temp 36.8 Pulse 81 Resp 18 B/P (MAP) 114/70 (85) Pulse Ox 99 O2 Delivery Room Air Capillary Refill : Height, Weight, BMI Height: '" Weight: lbs. oz. 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 Skin: Normal Color, Warm/Dry Progress/Results/Core Measures Suspected Sepsis SIRS Temperature: Pulse: Respiratory Rate: Laboratory Tests 05/25/20 15:54: White Blood Count 12.6H Blood Pressure / Mean: Laboratory Tests 05/25/20 15:54: Creatinine 2.18H, INR Comment 1.7H, Platelet Count 253, Total Bilirubin 0.4 Results/Orders Lab Results Laboratory Tests Test 05/25/20 15:54 05/25/20 17:30 Range/Units White Blood Count 12.6 H 4.3-11.0 10^3/uL Red Blood Count 2.89 L 4.30-5.52 10^6/uL Hemoglobin 8.2 L 13.3-17.7 g/dL Hematocrit 26 L 40-54 % Mean Corpuscular Volume 89 80-99 fL Mean Corpuscular Hemoglobin 28 25-34 pg Mean Corpuscular Hemoglobin Concent 32 32-36 g/dL Red Cell Distribution Width 16.6 H 10.0-14.5 % Platelet Count 253 130-400 10^3/uL Mean Platelet Volume 10.9 9.0-12.2 fL Immature Granulocyte % (Auto) 1 % Neutrophils (%) (Auto) 88 H 42-75 % Lymphocytes (%) (Auto) 5 L 12-44 % Monocytes (%) (Auto) 5 0-12 % Eosinophils (%) (Auto) 0 0-10 % Basophils (%) (Auto) 0 0-10 % Neutrophils # (Auto) 11.1 H 1.8-7.8 10^3/uL Lymphocytes # (Auto) 0.6 L 1.0-4.0 10^3/uL Monocytes # (Auto) 0.6 0.0-1.0 10^3/uL Eosinophils # (Auto) 0.0 0.0-0.3 10^3/uL Basophils # (Auto) 0.0 0.0-0.1 10^3/uL Immature Granulocyte # (Auto) 0.2 H 0.0-0.1 10^3/uL Neutrophils % (Manual) 87 % Lymphocytes % (Manual) 9 % Monocytes % (Manual) 4 % Hypochromasia MODERATE Poikilocytosis SLIGHT Anisocytosis MODERATE Prothrombin Time 20.0 H 12.2-14.7 SEC INR Comment 1.7 H 0.8-1.4 Activated Partial Thromboplast Time 37 H 24-35 SEC Sodium Level 133 L 135-145 MMOL/L Potassium Level 4.9 3.6-5.0 MMOL/L Chloride Level 101 98-107 MMOL/L Carbon Dioxide Level 19 L 21-32 MMOL/L Anion Gap 13 5-14 MMOL/L Blood Urea Nitrogen 59 H 7-18 MG/DL Creatinine 2.18 H 0.60-1.30 MG/DL Estimat Glomerular Filtration Rate 29 BUN/Creatinine Ratio 27 Glucose Level 208 H 70-105 MG/DL Calcium Level 9.0 8.5-10.1 MG/DL Corrected Calcium 9.3 8.5-10.1 MG/DL Total Bilirubin 0.4 0.1-1.0 MG/DL Aspartate Amino Transf (AST/SGOT) 24 5-34 U/L Alanine Aminotransferase (ALT/SGPT) 20 0-55 U/L Alkaline Phosphatase 63 40-136 U/L Troponin I < 0.028 <0.028 NG/ML B-Type Natriuretic Peptide 108.6 H <100.0 PG/ML Total Protein 6.4 6.4-8.2 GM/DL Albumin 3.6 3.2-4.5 GM/DL Urine Color YELLOW Urine Clarity CLEAR Urine pH 5.0 5-9 Urine Specific [place] 1.020 1.016-1.022 Urine Protein NEGATIVE NEGATIVE Urine Glucose (UA) NEGATIVE NEGATIVE Urine Ketones NEGATIVE NEGATIVE Urine Nitrite NEGATIVE NEGATIVE Urine Bilirubin NEGATIVE NEGATIVE Urine Urobilinogen 0.2 < = 1.0 MG/DL Urine Leukocyte Esterase TRACE H NEGATIVE Urine RBC (Auto) NEGATIVE NEGATIVE Urine RBC NONE /HPF Urine WBC 5-10 H /HPF Urine Squamous Epithelial Cells NONE /HPF Urine Crystals NONE /LPF Urine Bacteria FEW H /HPF Urine Casts PRESENT /LPF Urine Hyaline Casts 0-2 H /LPF Urine Mucus NEGATIVE /LPF Urine Culture Indicated YES My Orders Orders - RAMON,ERIC L DO BNP (05/25/20 15:51) Cbc With Automated Diff (05/25/20 15:51) Comprehensive Metabolic Panel (05/25/20 15:51) Protime With Inr (05/25/20 15:51) Partial Thromboplastin Time (05/25/20 15:51) Troponin I (05/25/20 15:51) Ua Culture If Indicated (05/25/20 15:51) Chest 1 View, Ap/Pa Only (05/25/20 15:51) Knee, Right, 3 Views (05/25/20 15:51) Ed Iv/Invasive Line Start (05/25/20 15:51) Ekg Tracing (05/25/20 15:51) Manual Differential (05/25/20 15:54) Ed Iv/Invasive Line Start (05/25/20 16:45) Ns Iv 500 Ml (Sodium Chloride 0.9%) (05/25/20 16:45) Urine Culture (05/25/20 17:30) Medications Given in ED Vital Signs/I&O 05/25/20 23:59 Intake Total 500 ml Balance 500 ml Capillary Refill : Progress Note : Time: 17:51 Progress Note Patient with some mild acute kidney injury/dehydration. I suspect this is from that fluid restriction. He has a questionable urine but no urinary symptoms. This time he is requesting be a little home. He has an appointment with his primary care provider Dr. Barrientos tomorrow. I do think this is probably appropriate. Ask him to mention his kidney studies when he sees her tomorrow. Patient likely a little dizziness from some dehydration and a vasovagal episode. He is discharged home in stable condition Departure Impression Primary Impression: Syncope Qualified Codes: R55 - Syncope and collapse Additional Impressions: Dehydration Acute kidney failure, unspecified Qualified Codes: N17.9 - Acute kidney failure, unspecified Disposition: 01 HOME, SELF-CARE Condition: Stable Departure-Patient Inst. Referrals: NATHANIEL BARRIENTOS MD (PCP/Family) Primary Care Physician Patient Instructions: Acute Kidney Injury (DC), Syncope (Fainting) (DC) Add. Discharge Instructions: Keep your appointment with Dr. Barrientos tomorrow Return to the ER as needed Copy Copies To 1: NATHANIEL BARRIENTOS MD, TREVOR L DO May 25, 2020 15:55
[2020-05-25 16:13] LABS: BASOPHILS % (AUTO) 0 % (0-10); EOSINOPHILS % (AUTO) 0 % (0-10); HEMATOCRIT 26 % (40-54); HEMOGLOBIN 8.2 g/dL (13.3-17.7); LYMPHOCYTES # (AUTO) 0.6 10^3/uL (1.0-4.0); LYMPHOCYTES % (AUTO) 5 % (12-44); MEAN CORPUSCULAR HEMOGLOBIN 28 pg (25-34); MEAN CORPUSCULAR HGB CONC 32 g/dL (32-36); MEAN CORPUSCULAR VOLUME 89 fL (80-99); MEAN PLATELET VOLUME 10.9 fL (9.0-12.2); MONOCYTES # (AUTO) 0.6 10^3/uL (0.0-1.0); MONOCYTES % (AUTO) 5 % (0-12); NEUTROPHILS # (AUTO) 11.1 10^3/uL (1.8-7.8); NEUTROPHILS % (AUTO) 88 % (42-75); PLATELET COUNT 253 10^3/uL (130-400); WHITE BLOOD COUNT 12.6 10^3/uL (4.3-11.0)
--- NOTE | 2020-05-25 16:14 | NUR ---
RADIOLOGY AT BEDSIDE
[2020-05-25 16:17] LABS: ALBUMIN 3.6 GM/DL (3.2-4.5)
[2020-05-25 16:18] LABS: CHLORIDE 101 MMOL/L (98-107); POTASSIUM 4.9 MMOL/L (3.6-5.0); SODIUM 133 MMOL/L (135-145)
[2020-05-25 16:20] LABS: GLUCOSE 208 MG/DL (70-105); INR 1.7 (0.8-1.4); TOTAL PROTEIN 6.4 GM/DL (6.4-8.2)
[2020-05-25 16:21] LABS: CARBON DIOXIDE 19 MMOL/L (21-32)
[2020-05-25 16:22] LABS: BILIRUBIN,TOTAL 0.4 MG/DL (0.1-1.0)
[2020-05-25 16:23] LABS: ALKALINE PHOSPHATASE 63 U/L (40-136)
[2020-05-25 16:24] LABS: CREATININE SERUM 2.18 MG/DL (0.60-1.30); GFR ESTIMATED 29
[2020-05-25 16:25] LABS: BUN/CREATININE RATIO 27
[2020-05-25 16:27] LABS: ALANINE AMINOTRANSFERASE 20 U/L (0-55)
--- NOTE | 2020-05-25 16:28 | Diagnostic Imaging Report ---
INDICATION: Trauma. EXAMINATION: Chest, 05/25/2020. COMPARISON: 04/19/2020. FINDINGS: The cardiomediastinal silhouette is unremarkable. The pulmonary vasculature is within normal limits. The lungs and pleural spaces are clear. IMPRESSION: No evidence of an acute cardiopulmonary process. Dictated by: Dictated on workstation # [id number]
--- NOTE | 2020-05-25 16:29 | Diagnostic Imaging Report ---
INDICATION: Right knee pain. EXAMINATION: Three views of the right knee. 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 Components are all in good alignment. There is no evidence of hardware loosening. No cortical fracture. No evidence of osteolysis. IMPRESSION: Normal appearing arthroplasty of right knee without acute change. Dictated by: Dictated on workstation # [id number]
[2020-05-25 16:38] LABS: ANISOCYTOSIS MODERATE; HYPOCHROMASIA MODERATE; LYMPHOCYTES % (MANUAL) 9 %; MONOCYTES % (MANUAL) 4 %; NEUTROPHILS % (MANUAL) 87 %; POIKILOCYTOSIS SLIGHT
[2020-05-25] MEDS ORDERED: NS IV 500 ML 500 ML IV ONE (16:45)
[2020-05-25 17:33] LABS: BILIRUBIN,URINE NEGATIVE (NEGATIVE); CLARITY,URINE CLEAR; COLOR,URINE YELLOW; GLUCOSE, URINE (UA) NEGATIVE (NEGATIVE); KETONES,URINE NEGATIVE (NEGATIVE); LEUKOCYTE ESTERASE ,URINE TRACE (NEGATIVE); NITRITE,URINE NEGATIVE (NEGATIVE); PROTEIN,URINE NEGATIVE (NEGATIVE)
[2020-05-25 17:40] LABS: BACTERIA,URINE FEW /HPF; HYALINE CASTS, URINE 0-2 /LPF
[2020-05-25 18:29] VITALS: BP 96/51
--- NOTE | 2020-05-25 18:29 | NUR ---
PT DISCHARGED TO HOME W/ INSTR. PT TO F/U W/ DR OLIVA SCHEDULED, CONTINUE MEDS DIRECTED ET RETURN IF SYMPTOMS CHANGE OR GET WORSE. UNDERSTANDING VOICED.
== END 2020-05-25 18:29 | disposition home or self-care (01) ==
LOC: EDUNIT# 15:43 → ER 15:44
DX: R55 Syncope and collapse (principal); E86.0 Dehydration; N17.9 Acute kidney failure, unspecified; E11.9 Type 2 diabetes mellitus without complications; K21.9 Gastro-esophageal reflux disease without esophagitis; E78.00 Pure hypercholesterolemia, unspecified; N40.0 Benign prostatic hyperplasia without lower urinary tract symptoms; Z85.828 Personal history of other malignant neoplasm of skin; Z87.891 Personal history of nicotine dependence; Z82.61 Family history of arthritis; Z83.3 Family history of diabetes mellitus; Z82.49 Family history of ischemic heart disease and other diseases of the circulatory system; Z79.01 Long term (current) use of anticoagulants
CPT/HCPCS: 36415; 71045; 73562; 80053; 81000; 83880; 84484; 85007; 85027; 85610; 85730; 87088; 93005

== ENCOUNTER 2020-05-27 05:40 | Outpatient (RCR) | payer MEDICARE, OTHER ==
[~2020-05-27] VITALS: Ht 182 cm; Wt 88.1 kg
== END 2020-05-28 09:44 | disposition home or self-care (01) ==
LOC: PREOP 05:40
PROVIDERS: ATTEND Surgery
DX: Z01.812 Encounter for preprocedural laboratory examination (principal); Z20.828 Contact with and (suspected) exposure to other viral communicable diseases
CPT/HCPCS: 87635

== ENCOUNTER 2020-05-30 14:01 | Day surgery (SDC) | payer MEDICARE, OTHER ==
[~2020-05-30] VITALS: Ht 182 cm; Wt 88.1 kg
[2020-05-30] MEDS ORDERED: LACTATED RINGERS 1,000 ML IV STA (14:02)
[2020-05-30] MEDS ORDERED: LACTATED RINGERS 0 ML IV ONE (14:03)
--- NOTE | 2020-05-30 14:09 | Progress Note-Pre Operative ---
Pre-Operative Progress Note H&P Reviewed The H&P was reviewed, patient examined and no changes noted. Date Seen by Provider: May 30, 2020 Time Seen by Provider: 14:09 Date H&P Reviewed: May 30, 2020 Time H&P Reviewed: 14:09 Pre-Operative Diagnosis: melena, iron def anemia EMMA CUMMINGS DO May 30, 2020 14:09
[2020-05-30 14:15] VITALS: BP 118/80
[2020-05-30] MEDS ORDERED: HURRICAINE EXT TUBE (BENZOCAINE) XX PRN (14:15)
[2020-05-30] MEDS ORDERED: PROPOFOL INJECTION 50 ML IV ONE (14:34)
[2020-05-30] MEDS ORDERED: MIDAZOLAM 2 MG/2 ML (VERSED) VIAL ONE (14:34)
[2020-05-30] MEDS ORDERED: LACTATED RINGERS 1,000 ML IV ONE (15:04)
[2020-05-30] MEDS ORDERED: proPOfol 200 MG/20 ML (DIPRIVAN) VIAL IV ONE (15:22)
[2020-05-30 15:45] VITALS: BP 88/56
[2020-05-30 15:50] VITALS: BP 87/62
--- NOTE | 2020-05-30 15:54 | Progress Note-Post Operative ---
Post-Operative Progess Note Surgeon (s)/Library Technical Assistant (s) Surgeon EMMA CUMMINGS DO Library Technical Assistant: na Pre-Operative Diagnosis melena, iron def anemia Post-Operative Diagnosis normal egd, diverticulosis, colon polyps, internal hemorrhoids Procedure & Operative Findings Date of Procedure 05/30/20 Procedure Performed/Findings egd c biopsies, colonoscopy c snare polypectomy x 1 and hot bx polypectomy x 3 Anesthesia Type per foundry tender Estimated Blood Loss Estimated blood loss (mL): scant Specimens/Packing Specimens Removed antrum, ge, polyps EMMA CUMMINGS DO May 30, 2020 15:54
[2020-05-30 15:55] VITALS: BP 87/62
--- NOTE | 2020-05-30 15:55 | Discharge Inst-Simple/Standard ---
Discharge Inst-Standard Patient Instructions/Follow Up Plan of Care/Instructions/FU: Adrian 2 weeks Hold carla 4 days then restart Activity as Tolerated: Yes Discharge Diet: Regular Diet EMMA CUMMINGS DO May 30, 2020 15:55
[2020-05-30 16:20] VITALS: BP 134/76
--- NOTE | 2020-06-01 08:25 | OPERATIVE REPORT ---
DATE OF SERVICE: 05/30/2020 PREOPERATIVE DIAGNOSES: Melena and iron deficiency anemia. POSTOPERATIVE DIAGNOSIS: Internal hemorrhoids, colon polyps. Normal esophagogastroduodenoscopy. PROCEDURE: EGD with biopsies, colonoscopy with snare polypectomy x1 and hot biopsy polypectomy x3. SURGEON: Emma Campbell DO ANESTHESIA: Per [employer]CEL[employer] ENAMEL LABORER. ESTIMATED BLOOD LOSS: Scant. COMPLICATIONS: None. INDICATIONS: The patient is an 85-year-old male with iron deficiency anemia and having melena. He understands risks and benefits of procedures and wished to proceed with procedure. Consent was signed in the chart. DESCRIPTION OF PROCEDURE: The patient was taken to the endoscopy suite, placed in left lateral recumbent position. Timeout was performed. Scope was inserted in mouth, down the esophagus, stomach and into the duodenum without difficulty. There were no polyps, masses or ulcerations within the duodenum. Scope was slowly retracted back into the stomach where it was further insufflated. No polyps, masses or ulcerations within the antrum. Biopsy of the antrum was obtained. Scope was retroflexed noting no other pathology. Scope was returned to its normal position, slowly withdrawn to distal esophagus. There were no polyps, masses or ulcerations. Scope was slowly retracted back until completely removed. Digital rectal exam was performed. There were no palpable polyps, masses or ulcerations. Scope was inserted in the rectum, advanced all the way to cecum without difficulty. Within the cecum, a flat polyp, which hot biopsy polypectomy was performed and fulgurated. Scope was then slowly retracted back in the ascending colon, another polyp was present, which hot biopsy polypectomy was performed. Scope was continuously retracted back. In the transverse colon, another small polyp was present for which hot biopsy polypectomy was performed. Scope was then continuously retracted back into the sigmoid colon where a larger pedunculated polyp was present for which snare polypectomy was performed. There were also some diverticulosis through the sigmoid colon. Scope was then continuously retracted back in the rectum, it was also retroflexed noting no other pathology except for internal hemorrhoids. Scope was returned to its normal position, slowly withdrawn until completely removed. The patient tolerated procedure well without any complications. He was taken to recovery room in stable condition. RECOMMENDATIONS: The patient will continue on current medications. I do not find any active source of bleeding; however, could be from diverticular bleed, internal hemorrhoids or from polyps since he is on anticoagulation. If he had any rebleed, we would repeat endoscopy. Otherwise, we will follow up in the office in two to three weeks to discuss pathology results. Job ID: [id number] DocumentID: [id number] Dictated Date: 05/31/2020 21:57:31 Event Coordinator Date: 06/01/2020 08:23:35 Dictated By: EMMA CAMPBELL DO
== END 2020-05-30 16:25 | disposition home or self-care (01) ==
LOC: ENDO 14:01
PROVIDERS: ATTEND Surgery
DX: D12.0 Benign neoplasm of cecum (principal); D12.2 Benign neoplasm of ascending colon; D12.3 Benign neoplasm of transverse colon; D12.5 Benign neoplasm of sigmoid colon; D50.9 Iron deficiency anemia, unspecified; K92.1 Melena; K64.8 Other hemorrhoids; I10 Essential (primary) hypertension; I48.91 Unspecified atrial fibrillation; K21.9 Gastro-esophageal reflux disease without esophagitis; E11.9 Type 2 diabetes mellitus without complications; M19.90 Unspecified osteoarthritis, unspecified site; N40.0 Benign prostatic hyperplasia without lower urinary tract symptoms; I12.9 Hypertensive chronic kidney disease with stage 1 through stage 4 chronic kidney disease, or unspecified chronic kidney disease; E11.22 Type 2 diabetes mellitus with diabetic chronic kidney disease; N18.30 Chronic kidney disease, stage 3 unspecified; I48.0 Paroxysmal atrial fibrillation; I34.0 Nonrheumatic mitral (valve) insufficiency; E66.9 Obesity, unspecified; Z68.26 Body mass index [BMI] 26.0-26.9, adult; Z79.02 Long term (current) use of antithrombotics/antiplatelets; Z79.01 Long term (current) use of anticoagulants; Z79.82 Long term (current) use of aspirin; Z79.899 Other long term (current) drug therapy; Z87.891 Personal history of nicotine dependence; Z80.0 Family history of malignant neoplasm of digestive organs; Z82.3 Family history of stroke
CPT/HCPCS: 82962; 88305

== ENCOUNTER → 2020-09-12 | Outpatient (CLI) | payer MEDICARE, OTHER | LOC: CARD 09:30 | PROVIDERS: ATTEND Internal Medicine Cardiovascular Disease | DX: I11.9 Hypertensive heart disease without heart failure (principal); I08.3 Combined rheumatic disorders of mitral, aortic and tricuspid valves | CPT/HCPCS: 93306 ==

== ENCOUNTER → 2020-09-15 | Outpatient (CLI) | payer MEDICARE, OTHER ==
[~2020-09-15] VITALS: Ht 177 cm; Wt 90.0 kg
[~2020-09-15] MED LIST changes: +CATHETER FLUSH 10 ML SYR IV PRN; +REGADENOSON 0.4 MG/5 ML SYR (LEXISCAN) IV ONE
[2020-09-15 09:00] VITALS: BP 136/89
--- NOTE | 2020-09-15 16:32 | Cardiology Stress Test Report ---
Stress Test Report Date of Procedure/Referring: Date of Procedure: Sep 15, 2020 PCP Whit Benjamin MD Admitting Physician Rosario Barrientos MD Indications: Hypertension Baseline Heart Rate: 97 Baseline Blood Pressure: Blood Pressure Systolic: 136 Blood Pressure Diastolic: 89 Baseline Vitals Vital Signs Date Time Temp Pulse Resp B/P (MAP) Pulse Ox O2 Delivery O2 Flow Rate FiO2 09/15/20 09:00 97 136/89 (105) 96 Baseline EKG: Baseline EKG: atrial fibrillation Summary After explaining the procedure to the patient, he signed a consent and then brought to the stress nuclear laboratory. Patient received 0.4 mg Lexiscan for stress test, ECG, heart rate and blood pressure were monitored continuously. Resting and stress dose of radio tracer were injected, imaging was acquired and reviewed in short axis, horizontal long axis and vertical long axis views. TID: 1.07 SSS: 1 SDS: 1 EF: 64 1. Patient tolerated Lexiscan well 2. Baseline atrial fibrillation persisted during test 3. No significant ischemia or infarction on SPECT images 4. Normal left ventricular size, EF 64 percent, gated images are unreliable due to atrial fibrillation WHIT BENJAMIN MD Sep 15, 2020 16:32
== END ==
LOC: CARD 08:00
PROVIDERS: ATTEND Internal Medicine Cardiovascular Disease
DX: I10 Essential (primary) hypertension (principal); R07.9 Chest pain, unspecified
CPT/HCPCS: 78452; 93017; A9502

== ENCOUNTER 2021-03-11 15:44 | Emergency (ER) | payer MEDICARE, OTHER ==
[~2021-03-11 15:44] MED LIST changes: -CATHETER FLUSH 10 ML SYR IV PRN; -REGADENOSON 0.4 MG/5 ML SYR (LEXISCAN) IV ONE
--- NOTE | 2021-03-11 16:04 | ED Cough/URI ---
General Chief Complaint: Cough/Cold/Flu Symptoms Stated Complaint: COUGH / SOB / LETHARGY Source: patient Exam Limitations: no limitations (TONY MELVIN APRN) History of Present Illness Date Seen by Provider: Mar 11, 2021 Time Seen by Provider: 13:55 Initial Comments to ER with cough short of breath and fatigue for a few days. and daughter are ill with similar symptoms. Timing/Duration: just prior to arrival Prior Episodes/Possible Cause: no prior episodes Associated Symptoms: cough (TONY MELVIN APRN) Allergies and Home Medications Allergies Coded Allergies: No Known Drug Allergies (Unverified , 05/27/20) Home Medications Apixaban 5 Mg Tablet, 5 MG PO BID, (Reported) Cefuroxime Axetil 250 Mg Tablet, 250 MG PO BID Prescribed by: TONY MELVIN on 03/11/211810 Cholecalciferol (Vitamin D3) 25 Mcg Tablet, 25 MCG PO DAILY, (Reported) Diltiazem HCl 120 Mg Cap.er.24h, 120 MG PO DAILY, (Reported) Lactobac Cmb #3/Fos/Pantethine 1 Each Capsule, 1 EACH PO HS, (Reported) Mirabegron 50 Mg Tab.er.24h, 50 MG PO HS, (Reported) Multivitamin 1 Each Tablet, 1 EACH PO DAILY, (Reported) Pantoprazole Sodium 40 Mg Tablet.dr, 40 MG PO BID Prescribed by: NATHANIEL OLIVA on 04/19/20 1008 Pioglitazone HCl 45 Mg Tablet, 45 MG PO DAILY, (Reported) Pravastatin Sodium 10 Mg Tablet, 10 MG PO HS, (Reported) Prednisone 20 Mg Tab, 40 MG PO DAILY Prescribed by: TONY MELVIN on 03/11/211810 Tamsulosin HCl 0.4 Mg Cap, 0.4 MG PO HS, (Reported) Zolpidem Tartrate 6.25 Mg Tab.mphase, 6.25 MG PO HS, (Reported) Patient Home Medication List Home Medication List Reviewed: Yes (TONY MELVIN APRN) Review of Systems Review of Systems Constitutional: see HPI EENTM: see HPI, nose congestion Respiratory: see HPI, cough Cardiovascular: no symptoms reported Genitourinary: no symptoms reported Musculoskeletal: no symptoms reported Skin: no symptoms reported Psychiatric/Neurological: No Symptoms Reported Hematologic/Lymphatic: No Symptoms Reported Immunological/Allergic: no symptoms reported (TONY MELVIN APRN) Past Tpkiqdl-Icbryl-Aqsmey Hx Patient Social History Tobacco Use?: No Substance use?: No Alcohol Use?: No Pt feels they are or have been: No (TONY MELVIN APRN) Immunizations Up To Date Tetanus Booster (TDap): Unknown PED Vaccines UTD: No First/Initial COVID19 Vaccinat: 08/14 Second COVID19 Vaccination Mason: 08/14 COVID19 Vaccine Stewardesses Teacher: Astrid (TONY MELVIN APRN) Seasonal Allergies Seasonal Allergies: No (TONY MELVIN APRN) Past Medical History Surgeries: Yes (TKR) Appendectomy, Joint Replacement, Orthopedic, Valve Replacement Respiratory: No Pneumonia Currently Using CPAP: No Currently Using BIPAP: No Cardiac: Yes Atrial Fibrillation, High Cholesterol, Valvular Heart Disease Neurological: Yes ( STATES CONFUSED AT TIMES) Dementia Reproductive Disorders: No Sexually Transmitted Disease: No HIV/AIDS: No Genitourinary: Yes Benign Prostatic Hyperpl, Prostate Problems Gastrointestinal: Yes Gastroesophageal Reflux Musculoskeletal: Yes Arthritis Endocrine: Yes Diabetes, 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) Hearing Impairment: Hard of Hearing, Bilateral Hearing Aide Cancer: Yes Skin Did You Recieve Any Treatments: Yes What Type of Treatment Did You: Surgical Intervention Psychosocial: No Integumentary: No Blood Disorders: No Adverse Reaction/Blood Tranf: No (HAS HAD BLOOD WITH NO REACTION) (TONY MELVIN APRN) Family Medical History Alcoholism G8 BROTHER Arthritis 19 MOTHER Completed stroke 19 FATHER Diabetes mellitus 19 MOTHER Hypertension 19 FATHER 19 MOTHER Myocardial infarction G8 SISTER Heart Disease, Hypertension, Stroke (TONY MELVIN APRN) Physical Exam Vital Signs - First Documented 03/11/21 16:00 Temp 36.8 Pulse 94 Resp 20 B/P (MAP) 109/95 (100) Pulse Ox 95 O2 Delivery Room Air (CHUCK RAE MD) Capillary Refill : (TONY MELVIN APRN) Height: '" Weight: lbs. oz. kg; 28.72 BMI Method: General Appearance: WD/WN, no apparent distress Eyes: Bilateral Eye Normal Inspection, Bilateral Eye PERRL, Bilateral Eye EOMI HEENT: PERRL/EOMI, normal ENT inspection Neck: non-tender, full range of motion Respiratory: no respiratory distress, no accessory muscle use, other (Bibasilar crackles otherwise good air movement) Cardiovascular: regular rate, rhythm, no murmur Gastrointestinal: normal bowel sounds, non tender, soft Extremities: normal range of motion, non-tender Neurologic/Psychiatric: alert, normal mood/affect, oriented x 3 Skin: normal color, warm/dry (TONY MELVIN APRN) Progress/Results/Core Measures Suspected Sepsis SIRS Temperature: Pulse: Respiratory Rate: Blood Pressure / Mean: (TONY MELVIN APRN) Results/Orders Lab Results Laboratory Tests Test 03/11/21 15:55 Range/Units Influenza Type A (RT-PCR) Not Detected Not Detecte Influenza Type B (RT-PCR) Not Detected Not Detecte SARS-CoV-2 RNA (RT-PCR) Not Detected Not Detecte (CHUCK RAE MD) Vital Signs/I&O 03/11/21 03/11/21 03/11/21 16:00 16:00 18:55 Temp 36.8 36.8 Pulse 94 94 Resp 20 20 B/P (MAP) 109/95 (100) 109/95 (100) Pulse Ox 95 95 O2 Delivery Room Air Room Air Room Air (CHUCK RAE MD) Vital Signs/I&O Capillary Refill : (TONY MELVIN APRN) Departure Impression Primary Impression: Bronchitis Disposition: 01 HOME, SELF-CARE Condition: Stable Departure-Patient Inst. Decision time for Depature: 18:10 (TONY MELVIN APRN) Referrals: NATHANIEL OLIVA MD (PCP/Family) Primary Care Physician Patient Instructions: Bronchitis, Adult ED Scripts Cefuroxime Axetil (Cefuroxime) 250 Mg Tablet 250 MG PO BID, #10 TAB Prov: TONY MELVIN APRN 03/11/21 Prednisone (Prednisone) 20 Mg Tab 40 MG PO DAILY, #6 TAB 0 Refills Prov: TONY MELVIN APRN 03/11/21 ATTENDING PHYSICIAN NOTE: I was physically present as attending physician in the emergency department during the care of this patient, but I was not directly involved in the decision making or delivery of care for this patient. (CHUCK RAE MD) TONY MELVIN APRN Mar 11, 2021 16:04 CHUCK RAE MD Mar 11, 2021 22:06
[2021-03-11] MEDS ORDERED: PRD20T PO (18:11)
[2021-03-11] MEDS ORDERED: CEFU250T80 PO (18:11)
[2021-03-11] MEDS ORDERED: predniSONE 20 MG TAB PO ONE (18:15)
[2021-03-11] MEDS ORDERED: CEPHALEXIN 250 MG (KEFLEX) CAP PO SCH (18:15)
--- NOTE | 2021-03-11 18:16 | Diagnostic Imaging Report ---
EXAMINATION: Chest radiograph, portable AP view. DATE: 03/11/2021 6:08 PM INDICATION: 85-year-old male, cough for 2 to 3 weeks. COMPARISON: May 25, 2020. FINDINGS: There are median sternotomy wires. Heart size and mediastinal contours are unchanged. There is no identified pneumothorax. There is blunting of the right lateral costophrenic angle. Similar to the comparison exam. There is no otherwise noted interval focal airspace consolidation. IMPRESSION: 1. Blunting of the right lateral costophrenic angle which may relate to small effusion, atelectasis and/or infiltrate. This is fairly similar to May 25, 2020. 2. No otherwise identified interval focal airspace consolidation. Dictated by: Dictated on workstation # [id number]
[2021-03-11 18:55] VITALS: BP 109/95
--- OUTSIDE RECORDS SUMMARY | 2021-03-11 21:36 | XMS REPORT | Encounter Summary ---
Author Author [facility] Organization [facility] Address Unknown Phone Unavailable Care Team Providers Care [employer] Distributor Name Role Phone Rosario Barrientos MD PCP Dion Parikh MD Unavailable Yury Darden MD Unavailable Danika Borjas MD [facility]available [facility] gar[facility] MD 3 Reason for Visit * Auth/Cert Referred By Contact Referred To Contact Status Reason Specialty Diagnoses / Procedures Diagnoses Nonrheumatic mitral valve regurgitation Procedures VA R & L HRT CATH WINJX HRT ART& L VENTR IMG VA PRQ TRLUML CORONARY STENT W/ANGIO ONE ART/BRNCH ANGIOGRAPHY CORONARY ARTERY WITH RIGHT AND LEFT HEART CATHETERIZATION POSSIBLE PERCUTANEOUS CORONARY STENT PLACEMENT WITH ANGIOPLASTY Encounter Details Care Team Description Date Type Department Raquel Storey MD [address] [facility] [place] [address] Mitral regurgitation 01/21/2021 Hospital Laboratory: Center for En[facility] [address] [facility] [facility] [place] [address] Social History Date Tobacco Use Types Packs/Day Years Used Quit: 1986 Former Smoker Smokeless Tobacco: Never Used Comments Alcohol Use Standard Drinks/Week 7 cans per year Yes 1 (1 standard drink = 0.6 o z pure alcohol) Sex Assigned at Date Recorded Male 04/30/2020 1:30 PM CDT Date Recorded COVID-19 Exposure Response 01/21/2021 9:24 AM CDT In the last month, have you been in contact with No / Unsure someone who was confirmed or suspected to have Coronavirus / COVID-19? documented as of this encounter Last Filed Vital Signs Reading Time Taken Comments Vital Sign 116/74 01/21/2021 2:00 PM CDT Blood Pressure 81 01/21/2021 2:00 PM CDT Pulse - - Temperature - - Respiratory Rate 95% 01/21/2021 1:31 PM CDT Oxygen Saturation - - Inhaled Oxygen Concentration - - Weight - - Height - - Body Mass Index documented in this encounter Functional Status Date of Assessment Functional Status Response 05/05/2020 Does the patient have a hearing impairment: Yes 12/18/2019 Does the patient have a visual impairment: No - read ers 12/18/2019 Does the patient have impaired ambulation: No 12/18/2019 Does the patient have an activity of daily living No (ADL) impairment: 12/18/2019 Does the patient have an instrumental activity of No daily living (IADL) impairment: Date of Assessment Cognitive Status Response 12/18/2019 Does the patient have a cognitive impairment: No documented as of this encounter Medications at Time of Discharge Start Date End Date Medication Sig Dispensed Refills 03/22/2020 dilTIAZem CD (CARDIZEM Take 120 mg 0 CD) 120 mg capsule by mouth daily. 05/18/2020 furosemide (LASIX) 40 mg Take one 30 tablet 1 tablet tablet by mouth daily. 01/14/2021 JANUVIA 50 mg Take 1 tablet 0 by mouth daily. 12/04/2020 nebivoloL (BYSTOLIC) 10 Take 1 tab at 2 tablet 0 mg tabletIndications: 8pm the night pre-procedure before the test and 1 tab at 8am the morning of the test. Indications: pre-procedure 05/18/[address] Take one 60 tablet 1 (PROTONIX) 40 mg tablet tablet by mouth twice daily. 05/18/2020 potassium chloride SR Take two 60 tablet 1 (K-DUR) 20 mEq tablet tablets by mouth daily. 08/10/2017 pravastatin (PRAVACHOL) Take 10 mg by 0 10 mg tablet mouth at bedtime daily. rivaroxaban (XARELTO) 15 Take 15 mg by 0 mg tablet mouth daily. Take with food. 05/18/2020 spironolactone Take one-half 15 tablet 1 (ALDACTONE) 25 mg tablet tablet by mouth daily. Take with food. 07/27/2017 tamsulosin (FLOMAX) 0.4 Take 0.4 mg 0 mg capsule by mouth daily. 03/07/2020 zolpidem CR (AMBIEN CR) TAKE 1 0 6.25 mg tablet TABLET(S) ORAL EVERY NIGHT AT BEDTIME documented as of this encounter Discharge Disposition Code Departure Means Destination Disposition Wheelchair Home or Self Care documented in this encounter Progress Notes * Lorelei Delarosa, [employer] - 01/21/2021 2:26 PM CDT Post Cardiac Procedure Progress Note Name: Agustín Glez Jr. : 1935 Age: 85 y.o. Admit Date: 01/21/2021 Discharge Date: 01/21/2021 Attending Physician: Dr. Raquel Storey MD Service: Med-Cardiovascular Reason for hospitalization: right cardiac catheterization Hospital Problems Principal Problem: Mitral regurgitation Active Problems: CKD (chronic kidney disease) History of aortic valve replacement Persistent atrial fibrillation (HCC) Admission Lab/Radiology studies notable for: Hematology: Lab Results Component Value Date HGB 12.9 01/19/2021 HCT 39.2 01/19/2021 PLTCT 169 01/19/2021 WBC 6.9 01/19/2021 MCV 85.5 01/19/2021 MCHC 32.8 01/19/2021 MPV 9.1 01/19/2021 RDW 16.6 01/19/2021 , General Chemistry: Lab Results Component Value Date NA 136 01/21/2021 K 4.5 01/21/2021 CL 105 01/21/2021 GAP 8 01/21/2021 BUN 20 01/21/2021 CR 1.85 01/21/2021 GLU 130 01/21/2021 CA 9.1 01/21/2021 ALBUMIN 3.9 01/19/2021 MG 2.3 01/19/2021 TOTBILI 1.0 01/19/2021 , HgbA1C: Lab Results Component Value Date HGBA1C 7.5 01/19/2021 and Lipid Profile: Lab Results Component Value Date CHOL 163 01/19/2021 TRIG 128 01/19/2021 HDL 29 01/19/2021 LDL 108 01/19/2021 VLDL 26 01/19/2021 Brief Hospital Course: Agustín Glez Jr. is a 85 y.o. with valvular cardiomyopathy, heart failu re with preserved ejection fraction, significant mitral valve disease with sever e MR and mild mitral stenosis, s/p AVR with bioprosthetic valve in 2008, persist ent atrial fibrillation on chronic anticoagulation, hypertension, type 2 diabete s, chronic kidney disease, COPD and prior GI bleed. Patient's most recent echoc ardiogram was performed in April 2020 and showed preserved EF with severe left atrial enlargement and severe mitral annular calcification. He has severe abrahan ral valve regurgitation and mild mitral stenosis with a gradient of 5 mmHg at a heart rate of 85 bpm. The bioprosthetic valve was well-seated without dysfunct ion, and PASP was estimated to be 46 mmHg. His estimated central venous pressu re was normal, weight at that time was 202 pounds. He had a MARCY the following day which confirmed calcified mitral leaflets and restricted motion. The gradi ent at that time was estimated to be 45 mmHg at 86 bpm, mitral valve area 2 cm by planimetry, and severe mitral valve regurgitation with 2 jets, mostly medial and lateral, with the more severe jet being the medial 1. There was intermitt ent systolic flow reversal in the right superior pulmonary vein and blunted syst olic flow in the other pulmonary veins. His TR was considered mild to moderate , and there was no problem identified with a bioprosthetic aortic valve. He reis s severe left atrial enlargement and moderate right atrial enlargement. No thr ombus was identified. Cardiac cath was performed 05/16/2020 with RA 8 to 9 mmHg, PA 41/18 mmHg, mean 2 5 mmHg, PCW 15 mmHg with V wave up to 32 mmHg. The TPG 10 mmHg, and cardiac ind ex was 2.75/m by Marti method, 2.1 is from prescribed by thermodilution. Left heart cath revealed no significant gradient across aortic valve was LVEDP 16 mmH g. There was no obstructive coronary artery disease identified, mild luminal ir regularities in the LAD, circumflex, and RCA. He was seen in clinic by Dr. Freeman on 01/19/2021 with report of fatigue an d ARANDA which is caused him to slow down over the past few years. He is currently being evaluated for the Donaldson trial for transcatheter mitral valve replacement. He was felt by the surgical team not to be a candidate for surgical MVR given his age and comorbidities. Decision made to pursue right cardiac catheterizati on as part of preprocedure work-up. Right cardiac catheterization on 01/21/2021 elevated mean pulmonary artery pressu re in the setting of an elevated pulmonary artery occlusive pressure and promine nt V-wave, all consistent with severe mitral insufficiency.. Patient to continue with evaluation for Donaldson trial. His post procedure course was uncomplicated and he was discharged home in stable condition Upon discharge the patient and family were given post procedure instructions/res trictions as well as written instructions ( see Discharge instructions). _ Discharge Plan/Recommendations: Follow up: Structural heart team will coordinate further appts as deemed appropr iate. Disease Prevention: Lipid management: Fasting lipid profile as above showing and LDL of 108. 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 Hypertension: BP controlled on current regimen Diabetes: NA Tobacco: Social History Tobacco Use Smoking status: Former Smoker Quit date: 1986 Years since quittin.5 Smokeless tobacco: Never Used Substance Use Topics Alcohol use: Yes Alcohol/week: 1.0 standard drinks Types: 1 Cans of beer per week Comment: 7 cans per year Drug use: No Obesity: There is no height or weight on file to calculate BMI. Heart healthy d iet, exercise and weight loss encouraged Physical Exam: right IJ D/I, without evidence of hematoma, bleeding, or bruit. Distal pulses intact. Pt was ambulatory in the halls without complaint prior to discharge. BP 116/74 | Pulse 81 | SpO2 95% Consult: none Significant Diagnostic Studies and Procedures: 01/21/2021 right cardiac catheterization Elevated mean pulmonary artery pressure in the setting of an elevated pulmonary artery occlusive pressure and prominent V-wave, all consistent with severe naeem l insufficiency. Patient instructions/medications: Cardiac Diet Limiting unhealthy fats and cholesterol is the most important step you can take in reducing your risk for cardiovascular disease. Unhealthy fats include satur ated and trans fats. Monitor your sodium and cholesterol intake. Restrict your sodium to 2g (grams) or 2000mg (milligrams) daily, and your cholesterol to 200mg daily. If you have questions regarding your diet at home, you may contact a dietitian tricia t . Report These Signs and Symptoms Please contact your doctor if you have any of the following symptoms: Chest scott n, shortness of breath, lightheadedness, dizziness, near fainting, palpitations, abd pain, back pain, or bleeding. Risk Reduction Plan Cardiac Event Personal Risk Factor Reduction Plan Take this sheet to your physician to show treatment recommendations Agustín Glez Jr. Admission Date: 01/21/2021 LOS: @LOS@ Blood Pressure Risk Goal: Keep blood pressure below 130/80 Your Numbers: BP Readings from Last 1 Encounters: 01/21/21 : (!) 124/90 Plan: High blood pressure is the single most important risk factor for cardiac e vents because it's the #1 cause of cardiac events. Take medication as prescribe d and monitor your blood pressure. Abnormal lipids (fats in blood) Risk Goal: Total Cholesterol: <200 LDL (bad cholesterol): primary prevention <100 LDL (bad cholesterol): secondary prevention < 70 HDL ("good" cholesterol): >40 for men, >50 for women Triglycerides: <150 Your Numbers: Cholesterol Date Value Ref Range Status 01/19/2021 163 <200 MG/DL Final LDL Date Value Ref Range Status 01/19/2021 108 (H) <100 mg/dL Final HDL Date Value Ref Range Status 01/19/2021 29 (L) >40 MG/DL Final Triglycerides Date Value Ref Range Status 01/19/2021 128 <150 MG/DL Final Plan: Diets high in saturated fat, trans fat and cholesterol can raise blood cho lesterol levels increasing your risk of having a cardiac event. Take medication as prescribed and eat a heart healthy, low sodium diet. Smoking Risk Goals: If you smoke, STOP! Plan: Smoking DOUBLES your risk of having a cardiac event. Quitting can greatly reduce your risk. To register for smoking cessation program call [phone] or visit www.smokefree.gov Diabetes Risk Goal: Non-diabetic: Below 5.7% Goal for diabetic: Less than 7% Your Numbers: Hemoglobin A1C Date Value Ref Range Status 01/19/2021 7.5 (H) 4.0 - 6.0 % Final Comment: The ADA recommends that most patients with type 1 and type 2 diabetes maintain an A1c level <7%. Plan: If you have diabetes, even if treated, you are at an increased risk of hav ing a cardiac event. Alcohol Use Risk Goal: Alcohol use can lead to a cardiac event. Plan: For men, limit intake to no more than 2 drinks per day. For women, limit intake to no more than one drink per day. Weight Management Risk Goal: Healthy: BMI is 18.5 to 24.9 Overweight: BMI is 25 to 29.9 Obese: BMI is 30 or higher Morbid Obesity: BMI [...] Your Numbers: Your Plan: If you have questions about your diet after you go home, you can call a kirit pratt at [phone] Physical Activity Risk Goal: Patients should have approval by a physician prior to beginning an exercis e program. Plan: Try to get at least 30 minutes of moderate physical activity five days a w [place] or 20 minutes of vigorous physical activity three days a week with your doct or's approval. To the Neurology and the NeuroSurg Discharge order sets set add a new order in t he education section titled "Risk Reduction Plan", in the comments section add t rea following (default select this new order for neuro and neuro surg and ensure this information is added to the AVS). Questions About Your Stay For questions or concerns regarding your hospital stay: - DURING BUSINESS HOURS (8:00 AM - 4:30 PM): Call [phone] and asked to be transferred to your discharge attending physic antoine. - AFTER BUSINESS HOURS (4:30 PM - 8:00 AM, on weekends, or holidays): Call [phone] and ask the scouring train operator to page the on-call doctor for the discha rge attending physician. Discharging attending physician: RAQUEL STOREY [[id number]] Procedure Specific Activity *Resume your normal activity in 2 days. Incision Care *Call if there is an increase in pain, swelling, or redness. *DO NOT soak incision in water. *NO tub baths, hot tubs, or swimming. *You may shower after discharge. Current Discharge Medication List CONTINUE these medications which have NOT CHANGED Details dilTIAZem CD (CARDIZEM CD) 120 mg capsule Take 120 mg by mouth daily. PRESCRIPTION TYPE: Historical Med furosemide (LASIX) 40 mg tablet Take one tablet by mouth daily. Qty: 30 tablet, Refills: 1 PRESCRIPTION TYPE: Normal JANUVIA 50 mg Take 1 tablet by mouth daily. PRESCRIPTION TYPE: Historical Med nebivoloL (BYSTOLIC) 10 mg tablet Take 1 tab at 8pm the night before the test an d 1 tab at 8am the morning of the test. Indications: pre-procedure Qty: 2 tablet, Refills: 0 PRESCRIPTION TYPE: Normal Associated Diagnoses: Essential hypertension pantoprazole DR (PROTONIX) 40 mg tablet Take one tablet by mouth twice daily. Qty: 60 tablet, Refills: 1 PRESCRIPTION TYPE: Normal potassium chloride SR (K-DUR) 20 mEq tablet Take two tablets by mouth daily. Qty: 60 tablet, Refills: 1 PRESCRIPTION TYPE: Normal pravastatin (PRAVACHOL) 10 mg tablet Take 10 mg by mouth at bedtime daily. PRESCRIPTION TYPE: Historical Med rivaroxaban (XARELTO) 15 mg tablet Take 15 mg by mouth daily. Take with food. PRESCRIPTION TYPE: Historical Med spironolactone (ALDACTONE) 25 mg tablet Take one-half tablet by mouth daily. Nate e with food. Qty: 15 tablet, Refills: 1 PRESCRIPTION TYPE: Normal tamsulosin (FLOMAX) 0.4 mg capsule Take 0.4 mg by mouth daily. PRESCRIPTION TYPE: Historical Med zolpidem CR (AMBIEN CR) 6.25 mg tablet TAKE 1 TABLET(S) ORAL EVERY NIGHT AT BEDT NOLA PRESCRIPTION TYPE: Historical Med Signed: MADAI Milton 01/21/2021 cc: Primary Care Physician: Rosario Barrientos Referring physicians: Additional provider(s): * Anjana Rodriguez, MARIUSZ - 01/21/2021 2:25 PM CDT Patient discharged to home with all belongings. Discharge instructions, med rec onciliation and home wound care instructions given and explained to patient and family both verbally and written. Accompanied by RN. No complaints of pain or discomfort. R IJ remains clean, dry, and intact with no evidence of a hematoma after ambulation. Patient escorted [facility] via . Patient to follow up with [facility] ([facility]) or on-call physician with any additional questions or concerns. All contact numbers provided. Patient and family acceptant of DC instuctions and report understanding to all information. * Vale Arenas RN - 01/20/2021 11:57 AM CDT Cardiovascular Labs Scheduling Checklist 1. Date of procedure:01/21 2. Arrival time:0930 (RESCHEDULE FROM PREVIOUS DAY) 3. Patient instructed NPO after MN; clear liquids until: 0830 4. Instructed to check-in at the [facility] registration desk and bring phot o id, insurance cards and a current list of home medications. Pack an overnight bag in the event you are admitted overnight: Y 5. If you have a history of sleep apnea and use a C-Pap or Bi-Pap machine, pleas e bring it with you to the hospital: N 6. Have a emt driver available upon discharge as you may not be cleared to drive for 24 or 48 hours post procedure. (exception is RHC/biopsy patient with internal j ugular approach not receiving sedation): Y 7. If the patient's language preference is other than Pashto, please indicated muckleshoot language and need for food safety auditor: N 8. Patient instructed to drink 64 oz water the day before their procedure if stephanie licable and not contraindicated: Y 9. Patient instructed no caffeine for 24 hours before procedure: Y 10. Pre-procedure medications reviewed: Y-PER PER-PROC INSTRUCTIONS 12/17 Hold the following Medications: Continue to take the followin. General Anesthesia/MAC and/or PVC ablations: Type and Cross required: N 12. Contrast allergy with need for contrast allergy prophylaxis: N 13. Patient instructed to bath with antibacterial soap or surgical scrub:Y 14. List all same day pre-procedure requirements, i.e. Labs/H&P/EKG:N 15. List any same day pre-procedure appointments:N 16. List any isolation precautions and organism:N 17. List any special considerations: N- 18. Patient instructed to prepare for delays as there may be urgent or emergent cases: Y 19. Updated visitor guidelines reviewed (1 visitor allowed in CVLPP: must wear a mask, Not permitted to stay the night and must leave by 1800): Y 20. Patient acknowledges understanding of pre-procedure instructions: Y-[facility] documented in this encounter H&P Notes * Lorelei Delarosa APRN-NP - 01/21/2021 7:39 AM CDT Images from the original note were not included. Patient presents for cardiac procedure. Please see previously completed H&P below. TITA Bautista (pager [phone]) Mahsa Freeman MD Physician Specialty: Advanced Heart Failure and Transplant Cardiology Progress Notes Addendum Creation Time: 01/19/21830 Related encounter: Office Visit from 01/19/2021 in Cardiology: [facility] Addendum Date of Service: 01/19/2021 Agustín Glez Jr. is a 85 y.o. male. HPI Agustín Glez Jr. is a 85 y.o. male from [place], [place] being evaluated in the advanced heart failure clinic after referral from Dr. Monaco for valvular c ardiomyopathy/HFpEF with significant mitral valve disease: Severe mitral valve r egurgitation with mild mitral valve stenosis. He follows with his primary cardi ologist Dr. Eris Benjamin. He is status post aortic valve replacement with biopr osthetic valve in 2008, and he also has persistent atrial fib on chronic anticoa gulation, hypertension, diabetes, chronic kidney disease, COPD, and prior GI ble ed. His most recent echocardiogram was performed on 05/12/2020: EF 55 to 60% wi th severe left atrial enlargement and severe mitral annular calcification. He h as severe mitral valve regurgitation and mild mitral stenosis with a gradient of 5 mmHg at a heart rate of 85 bpm. The bioprosthetic valve was well-seated with out dysfunction, and PASP was estimated to be 46 mmHg. His estimated central ve nous pressure was normal, weight at that time was 202 pounds. He had a MARCY the following day which confirmed calcified mitral leaflets and restricted motion. The gradient at that time was estimated to be 45 mmHg at 86 bpm, mitral valve ar ea 2 cm by planimetry, and severe mitral valve regurgitation with 2 jets, most ly medial and lateral, with the more severe jet being the medial 1. There was i ntermittent systolic flow reversal in the right superior pulmonary vein and blun dorinda systolic flow in the other pulmonary veins. His TR was considered mild to m oderate, and there was no problem identified with a bioprosthetic aortic valve. He has severe left atrial enlargement and moderate right atrial enlargement. N o thrombus was identified. Cardiac cath was performed 05/16/2020 with RA 8 to 9 mmHg, PA 41/18 mmHg, mean 2 5 mmHg, PCW 15 mmHg with V wave up to 32 mmHg. The TPG 10 mmHg, and cardiac ind ex was 2.75/m by Marti method, 2.1 is from prescribed by thermodilution. Left heart cath revealed no significant gradient across aortic valve was LVEDP 16 mmH g. There was no obstructive coronary artery disease identified, mild luminal ir regularities in the LAD, circumflex, and RCA. Today he reports fatigue and dyspnea on exertion has caused him to slow down ove r the last few years, and he would like to walk more. 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 He lives with his dog and two cats as well a s his of 60 years. He had an admission for heart failure in April 2020. He currently denies exertional chest pain, irregular heartbeat/palpitations, di zzy spells, syncope/near syncope, edema, orthopnea, and paroxysmal nocturnal dys pnea. His home blood pressure is typically 120-130/70-80. His weight monitore d on home scale has been 200-212 pounds. Edema he was having last year resolved on current dose of lasix. No recent bleeding issues on Xarelto. Appetite is g ood, though he doesn't eat as much as he used to. Sugars have been elevated, th ough he was dringing pepsi and eating candy, and he has moderated his carbohydra te intake, additionally his family physician started Januvia. Vitals: 01/19/21 0823 01/19/21 0824 BP: 130/64 BP Source: Arm, Right Upper Patient Position: Sitting Pulse: 81 SpO2: 100% Weight: 94.5 kg (208 lb 6.4 oz) 94.4 kg (208 lb 3.2 oz) Height: 1.778 m (5' 10") 1.778 m (5' 10") PainSc: Zero Zero Body mass index is 29.87 kg/m. Past Medical History Patient Active Problem List Diagnosis Date Noted Hearing reduced Acute on chronic diastolic heart failure ([facility]) 05/05/2020 History of aortic valve replacement 05/05/2020 Persistent atrial fibrillation ([facility]) 05/05/2020 COPD (chronic obstructive pulmonary disease) ([facility]) 05/05/2020 Acute on chronic heart failure with preserved ejection fraction (HFpEF) ([facility] ) 05/05/2020 CKD (chronic kidney disease) Diabetes mellitus ([facility]) Hypertension Mitral regurgitation Urinary incontinence without sensory awareness 12/18/2019 Urinary frequency 05/16/2018 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 HENT: Negative. Eyes: Negative. Cardiovascular: Positive for dyspnea on exertion. Respiratory: Negative. Endocrine: Negative. Hematologic/Lymphatic: Negative. Skin: Negative. Musculoskeletal: Negative. Gastrointestinal: Negative. Genitourinary: Negative. Neurological: Negative. Psychiatric/Behavioral: Negative. Allergic/Immunologic: Negative. All other systems reviewed and are negative. Physical Exam Constitutional: He appears well-developed and well-nourished. HENT: Head: Normocephalic. Mouth/Throat: Oropharynx is clear and moist. Eyes: Conjunctivae are normal. Neck: Normal range of motion. No JVD present. Normal carotid pulses. Cardiovascular: Normal rate, irregularly irregular rhythm, normal heart sounds a nd intact distal pulses. Exam reveals no gallop and no friction rub. Apical hol osystolic murmur heard. Pulmonary/Chest: Effort normal and breath sounds normal. No respiratory distress . He has no wheezes. He has no rales. He exhibits no chest wall tenderness. Abdominal: Soft. Bowel sounds are normal. He exhibits no distension. There is no tenderness. Musculoskeletal: Normal range of motion and muscular tone. He exhibits no edema. Neurological: He is alert and oriented to person, place, and time. No focal defi cits. Skin: Skin is warm. No erythema. Psychiatric: He has a normal mood and affect. Judgment, behavior, and thought co ntent normal. Cardiovascular Studies Problems Addressed Today Encounter Diagnoses Name Primary? Nonrheumatic mitral valve regurgitation Yes Chronic heart failure with preserved ejection fraction (HFpEF) ([facility]) Nonobstructive atherosclerosis of coronary artery PAF (paroxysmal atrial fibrillation) ([facility]) Chronic anticoagulation Essential hypertension Type 2 diabetes mellitus without complication, unspecified whether alf insulin use ([facility]) Assessment and Plan Today he is warm, normotensive, euvolemic, and with stable NYHA functional class III symptoms of chronic diastolic heart failure (HFpEF) with underlying valvula r cardiomyopathy: He has a calcific mitral valve with severe regurgitation and m ild stenosis. EKG performed in clinic today is A. fib at a rate of 62 bpm with QRS 102 ms, QTC 4 4 ms. He is currently being evaluated for the Donaldson trial fo r transcatheter mitral valve replacement. He was felt by the surgical team to n ot be a candidate for surgical mitral valve replacement given his age and comorb idities. From a heart failure standpoint, he is warm, normotensive, euvolemic, and with stable to progressive NYHA functional class II symptoms. He has minima l luminal irregularities but no obstructive coronary artery disease. He is sche duled to have repeat right heart cath, carotid duplex, and pulmonary function te sting. His diuretic will be continued at current dose and labs will be rechecked today. I will not make medication changes at this time, and he will continue to follow locally with his primary gas plumber Dr. Schulz for his A. fib, nonobstructi ve coronary artery disease, hypertension, and additional risk factor modificatio n. Patient Instructions 1. Med changes today: none 2. Please write down your weight, blood pressure, and heart rate daily and bring this log to all clinic visits. 3. Labs today: BNP, CMP, Mg, CBC, iron panel, lipids, A1C. 4. Return to see Dr. Freeman as needed, can follow with Dr. Benjamin locally. Orders Placed This Encounter BNP (B-TYPE NATRIURETIC PEPTI) COMPREHENSIVE METABOLIC PANEL MAGNESIUM HEMOGLOBIN A1C LIPID PROFILE IRON + BINDING CAPACITY + %SAT+ FERRITIN today Thank you for allowing me to participate in the care of this patient. Please do not hesitate to contact me should you have any questions or concerns. Addendum: Labs were reviewed collected earlier today. Notably, LDL is elevated at 108, creatinine is stable at 2, hemoglobin A1c is 7.5%, BNP is only mildly el evated at 125, and iron studies are consistent with iron deficiency anemia with ferritin 38, iron 52 (12% saturation), and TIBC 429. Based on the above, he anum ht elicit from IV iron infusions, which ideally would be arranged locally, and w ould consider high intensity statin therapy, especially as he is a diabetic his LDL goal should be below 70. I will defer to his primary gas plumber and prima ry care physician for medication management. Mahsa Freeman MD, PhD [facility] Card[facility] Pager [phone] I spent 50 minutes in this encounter including approximately 30 minutes in couns elicarlos on his heart disease. We reviewed the above treatment plan, went over ris ks/benefits/alternatives to the therapies, and all questions were answered to hi s satisfaction. Current Medications (including today's revisions) dilTIAZem CD (CARDIZEM CD) 120 mg capsule Take 120 mg by mouth daily. furosemide (LASIX) 40 mg tablet Take one tablet by mouth daily. nebivoloL (BYSTOLIC) 10 mg tablet Take 1 tab at 8pm the night before the boni t and 1 tab at 8am the morning of the test. Indications: pre-procedure pantoprazole DR (PROTONIX) 40 mg tablet Take one tablet by mouth twice daily . (Patient taking differently: Take 40 mg by mouth daily.) potassium chloride SR (K-DUR) 20 mEq tablet Take two tablets by mouth daily. (Patient taking differently: Take 20 mEq by mouth daily.) pravastatin (PRAVACHOL) 10 mg tablet Take 10 mg by mouth at bedtime daily. rivaroxaban (XARELTO) 15 mg tablet Take 15 mg by mouth daily. Take with food . spironolactone (ALDACTONE) 25 mg tablet Take one-half tablet by mouth daily. Take with food. tamsulosin (FLOMAX) 0.4 mg capsule Take 0.4 mg by mouth daily. zolpidem CR (AMBIEN CR) 6.25 mg tablet TAKE 1 TABLET(S) ORAL EVERY NIGHT AT BEDTIME Revision History documented in this encounter Procedure Notes * Raquel Storey MD - 01/21/2021 12:31 PM CDT Associated Order(s): CARDIAC CATH REPORT [facility] Cardiology at [facility] CARDIAC CATHETERIZATION REPORT Page 1 AGUSTÍN Ferguson : 1935 KU#: [id number] MR #/Billing ID #: [id number] / [id number] DATE: 01/21/2021 WALL COVERING INSTALLER: Raquel Storey MD DICTATING PROVIDER: Raquel Storey MD REFERRING PHYSICIAN: Raquel Storey MD PROCEDURES PERFORMED: Right heart catheterization. PROCEDURE: Mr. Glez is an 85-year-old male with a history of severe mitral i nsufficiency, who is being evaluated for consideration of transcatheter mitral v alve replacement. He presented for invasive right heart hemodynamics. On arriv al to the label rewinder, he was hemodynamically stable and pain free. Moderate IV co nscious sedation was monitored by myself, nursing, and technical staff for a tot al duration of 0 minutes. The right neck was then prepped and draped in typical fashion. We infiltrated the right neck with approximately 5 mL of 1% lidocaine and, under ultrasound guidance, gained access to the right internal jugular vei n utilizing a micropuncture needle. A 7-Spanish venous sheath was advanced witho ut complication. We obtained right heart hemodynamics. Upon completion of proc edure, all catheters and wires were removed and he was transferred back to his oom, hemodynamically stable and pain free. FINDINGS: Right heart catheterization: 1. Blood pressure is 146/86 with a mean arterial pressure of 110. 2. The heart rate is 71. 3. RA is 12. 4. RV is 40/12. 5. PA is 42/22 with a mean PA of 29. 6. Pulmonary artery occlusive pressure is 18 with a prominent V-wave up to 50 mm Hg. 7. Transpulmonary gradient is 11 with a pulmonary vascular resistance of 3 Wood units. 8. The aortic sat is 100, RA sat is 66, PA sat is 66 9. The estimated Marti output is 4.4 L/minute with an index of 2.1 L/minute per s q m. 10. The thermodilution output is 3.35 L/minute with an index of 1.58 L/minute pe r sq m. ASSESSMENT AND PLAN: Elevated mean pulmonary artery pressure in the setting of an elevated pulmonary artery occlusive pressure and prominent V-wave, all consis tent with severe mitral insufficiency. MD WILLIAN Vasquez/Yaa /[id number] cc: - Raquel Storey MD documented in this encounter Plan of Treatment Not on filedocumented as of this encounter Goals Goal Patient Associated Recent Progress Patient-Stat Aut hor Goal Type Problems ed? [facility] Kaden Walker RN documented as of this encounter Procedures Comments Procedure Name Priority Date/Time Associated Diag nosis POC GLUCOSE 01/21/2021 12:59 PM CDT CARDIAC CATH REPORT 01/21/2021 12:31 PM CDT HC O2HGB SAT-VENOUS POC 01/21/2021 12:25 PM CDT HC O2HGB SAT-VENOUS POC 01/21/2021 12:20 PM CDT HC BASIC METABOLIC PANEL STAT 01/21/2021 10:13 AM CDT POC GLUCOSE 01/21/2021 10:08 AM CDT CARDIAC CATH REPORT Routine 01/21/2021 Nonrheumat ic mitral valve 9:43 AM CDT regurgitation TELEMETRY STRIPS-SCAN 01/21/2021 12:00 AM CDT PROCEDURE RECORD-SCAN 01/21/2021 12:00 AM CDT CARDIAC CATH REPORT Routine 12/17/2020 Nonrheumat ic mitral valve 1:38 PM CDT regurgitation documented in this encounter Results * POC GLUCOSE (01/21/2021 12:59 PM CDT) Glucose, POC 96 70 - 100 MG/DL MAIN LAB Specimen Performing Organization Address City/State/ZIP Code [place] Number MAIN LAB [address] [place] [address] * CARDIAC CATH REPORT (01/21/2021 12:31 PM CDT) Procedure Note Raquel Storey MD - 01/21/2021 12:31 PM CDT [facility] Cardiology at [facility] CARDIAC CATHETERIZATION REPORT Page 1 AGUSTÍN Ferguson : 1935 #: [id number] MR #/Billing ID #: [id number] / [id number] DATE: 01/21/2021 WALL COVERING INSTALLER: Raquel Storey MD DICTATING PROVIDER: Raquel Storey MD REFERRING PHYSICIAN: Raquel Storey MD PROCEDURES PERFORMED: Right heart catheterization. PROCEDURE: Mr. Glez is an 85-year-old male with a history of severe mitral insufficiency, who is being evaluated for consideration of transcatheter mitral valve replacement. He presented for invasive right heart hemodynamics. On arrival to the label rewinder, he was hemodynamically stable and pain free. Moderate IV conscious sedation was monitored by myself, nursing, and technical staff for a total duration of 0 minutes. The right neck was then prepped and draped in typical fashion. We infiltrated the right neck with approximately 5 mL of 1% lidocaine and, under ultrasound guidance, gained access to the right internal jugular vein utilizing a micropuncture needle. A 7-Spanish venous sheath was advanced without complication. We obtained right heart hemodynamics. Upon completion of procedure, all catheters and wires were removed and he was transferred back to his room, hemodynamically stable and pain free. FINDINGS: Right heart catheterization: 1. Blood pressure is 146/86 with a mean arterial pressure of 110. 2. The heart rate is 71. 3. RA is 12. 4. RV is 40/12. 5. PA is 42/22 with a mean PA of 29. 6. Pulmonary artery occlusive pressure i s 18 with a prominent V-wave up to 50 mmHg. 7. Transpulmonary gradient is 11 with a pulmonary vascular resistance of 3 Wood units. 8. The aortic sat is 100, RA sat is 66, PA sat is 66 9. The estimated Marti output is 4.4 L/mi nute with an index of 2.1 L/minute per sq m. 10. The thermodilution output is 3.35 L/ minute with an index of 1.58 L/minute per sq m. ASSESSMENT AND PLAN: Elevated mean pulmonary artery pressure in the setting of an elevated pulmonary artery occlusive pressure and prominent V-wave, all consistent with severe mitral insufficiency. MD WILLIAN Vasquez/Yaa /[id number] cc: - Raquel Storey MD Performing Organization Address City/[facility] Code [place] Number OTHER OUTSIDE LAB * O2HGB SAT-VENOUS POC (01/21/2021 12:25 PM CDT) O2HGB 66.1 55 - 71 % MAIN LAB SAT-Venous POC Specimen Performing Organization Address [facility] P [place] Number [facility] MAIN LAB [address] [place] [address] * O2HGB SAT-VENOUS POC (01/21/2021 12:20 PM CDT) O2HGB 66.1 55 - 71 % [facility] MAIN LAB SAT-Venous POC Specimen Performing Organization Address [facility] [place] Number [facility] MAIN LAB [address] [place] [address] * BASIC METABOLIC PANEL (01/21/2021 10:13 AM CDT) Sodium 136 (L) 137 - 147 MMOL/L [facility] MAIN LAB Potassium 4.5 3.5 - 5.1 MMOL/L [facility] MAIN LAB Chloride 105 98 - 110 MMOL/L [facility] MAIN LAB CO2 23 21 - 30 MMOL/L [facility] MAIN [facility] Anion Gap 8 3 - 12 [facility] MAIN [facility] Glucose 130 (H) 70 - 100 MG/DL [facility] MAIN LAB Blood Urea 20 7 - 25 MG/DL [facility] MAIN LAB Nitrogen Creatinine 1.85 (H) 0.4 - 1.24 MG/DL [facility] MAIN LAB Calcium 9.1 8.5 - 10.6 MG/DL [facility] MAIN LAB eGFR Non 35 (L) >60 mL/min [facility] MAIN LAB Comment: [place] The eGFR is not validated f or use in drug dosing adjustments. Continue to use estimated creatinine clearance per dosing reference text. Please contact the Clinical Pharmacist for questions. eGFR 42 (L) >60 mL/min [facility] MAIN LAB [place] Comment: The eGFR is not validated for use in drug dosing adjustments. Continue to use estimated creatinine clearance per dosing reference text. Please contact the Clinical Pharmacist for questions. Specimen Blood Performing Organization Address City/State/ZIP Code [place] Number MAIN LAB [address] [place] [address] * POC GLUCOSE (01/21/2021 10:08 AM CDT) Glucose, POC 124 (H) 70 - 100 MG/DL [facility] MAIN LAB Specimen Performing Organization Address City/State/ZIP Code [place] Number [facility] [address] [place] [address] * PROCEDURE RECORD-SCAN (01/21/2021 12:00 AM CDT) Narrative Performed At This result has an attachment that is n ot available. Ordered by an unspecified provider. * TELEMETRY STRIPS-SCAN (01/21/2021 12:00 AM CDT) Narrative Performed At This result has an attachment that is n ot available. Ordered by an unspecified provider. documented in this encounter Visit Diagnoses Diagnosis Mitral regurgitation - Primary Mitral valve disorders Nonrheumatic mitral valve regurgitation Persistent atrial fibrillation (HCC) Atrial fibrillation CKD (chronic kidney disease) Chronic kidney disease, unspecified History of aortic valve replacement Heart valve replaced by other means documented in this encounter Administered Medications Action Date Dose Rate Site Medication Order MAR Action acetaminophen (TYLENOL) tablet 650 mg 650 mg, Oral, EVERY 4 HOURS PRN, Starting on Tue01/21/21 at 0943, Until Tue01/21/21 at 1714, Pain non-opioid: may be used alone or in combination wit h opioid analgesia, TOTAL ACETAMINOPHEN DOSE NOT TO EXCEED 4GM DAILY, Pre-Op aluminum/magnesium hydroxide (MAALOX) oral suspension 30 mL 30 mL, Oral, EVERY 4 HOURS PRN, Starting on Tue01/21/21 at 0943, Until Tue01/21/21 at 1714, Indigestion/Heartburn, Pre-Op 01/21/2021 10:31 AM CDT 325 mg aspirin tablet 325 mg Given 325 mg, Oral, ONCE, 1 dose, On Tue01/21/21 at 0945, Give NOW prior to CV procedure., Pre-Op diphenhydrAMINE (BENADRYL) capsule 25 m g 25 mg, Oral, EVERY 4 HOURS PRN, Starting on Tue01/21/21 at 1230, Until Tue01/21/21 at 1714, Rash diphenhydrAMINE (BENADRYL) injection 25 mg 25 mg, Intravenous, EVERY 4 HOURS PRN, Starting on Tue01/21/21 at 1230, Until Tue01/21/21 at 1714, Rash docusate (COLACE) capsule 100 mg 100 mg, Oral, DAILY PRN, Starting on Tue01/21/21 at 0943, Until Tue01/21/21 at 1714, Constipation PO, Hold for loos e stools., Pre-Op nitroglycerin (NITROSTAT) tablet 0.4 mg 0.4 mg, Sublingual, EVERY 5 MIN PRN, Starting on Tue01/21/21 at 0943, Until Tue01/21/21 at 1714, Chest Pain, Not to exceed 3 doses per incident of chest pain. Notify physician if chest pain persists after 3 doses., Pre-Op 01/21/2021 11:06 AM CDT 20 mL/hr sodium chloride 0.9 % infusion Dose/Rate 500 mL, 500 mL, Intravenous, at 100 Change mL/hr, CONTINUOUS, Starting on Tue01/21/21 at 1045, Until Tue01/21/21 at 1714 500 mL 100 mL/hr Given - New Bag 01/21/2021 10:33 AM CDT temazepam (RESTORIL) capsule 15 mg 15 mg, Oral, AT BEDTIME PRN, Starting o n Tue01/21/21 at 0943, Until Tue01/21/21 at 1714, Insomnia, Pre-Op documented in this encounter Active and Recently Administered Medications Times are shown in CDT. 01/20/2021 01/21/2021 Medication Order 01/19/2021 1031 (Given - Provider: Anjana Rodriguez, MARIUSZ) aspirin tablet 325 mg (COMPLETED) 325 mg, Oral, ONCE, 1 dose, Tue01/21/21 at 0945, Give NOW prior to CV procedure., Pre-Op 01/20/2021 01/21/2021 Medication Order 01/19/2021 1033 (Given - New Bag - Provider: Anjana Rodriguez RN)1106 (Dose/Rate Change - Provider: Anjana Rodriguez RN - Comment: Verbal order Dr. Storey) sodium chloride 0.9 % infusion 500 mL, 500 mL, Intravenous, at 100 mL/hr, CONTINUOUS, Starting Tue01/21/21 at 1045, Until Tue01/21/21 at 1714 01/20/2021 01/21/2021 Medication Order 01/19/2021 acetaminophen (TYLENOL) tablet 650 mg 650 mg, Oral, EVERY 4 HOURS PRN, Starting Tue01/21/21 at 0943, Until Tue01/21/21 at 1714, Pain non-opioid: may b e used alone or in combination with opioi d analgesia, TOTAL ACETAMINOPHEN DOSE NOT TO EXCEED 4GM DAILY, Pre-Op aluminum/magnesium hydroxide (MAALOX) oral suspension 30 mL 30 mL, Oral, EVERY 4 HOURS PRN, Starting Tue01/21/21 at 0943, Until Tue01/21/21 at 1714, Indigestion/Heartburn, Pre-Op diphenhydrAMINE (BENADRYL) capsule 25 mg(Linked Group 1) 25 mg, Oral, EVERY 4 HOURS PRN, Starting Tue01/21/21 at 1230, Until Tue01/21/21 at 1714, Rash diphenhydrAMINE (BENADRYL) injection 25 mg(Linked Group 1) 25 mg, Intravenous, EVERY 4 HOURS PRN, Starting Tue01/21/21 at 1230, Until Tue01/21/21 at 1714, Rash docusate (COLACE) capsule 100 mg 100 mg, Oral, DAILY PRN, Starting Tue01/21/21 at 0943, Until Tue01/21/21 at 1714, Constipation PO, Hold for loose stools., Pre-Op nitroglycerin (NITROSTAT) tablet 0.4 mg 0.4 mg, Sublingual, EVERY 5 MIN PRN, Starting Tue01/21/21 at 0943, Until Tue01/21/21 at 1714, Chest Pain, Not to exceed 3 doses per incident of chest pain. Notify physician if chest pain persists after 3 doses., Pre-Op temazepam (RESTORIL) capsule 15 mg 15 mg, Oral, AT BEDTIME PRN, Starting Tue01/21/21 at 0943, Until Tue01/21/21 at 1714, Insomnia, Pre-Op Order Group 1: diphenhydrAMINE (BENADRYL) capsule 25 m gJump to med 25 mg, Oral, EVERY 4 HOURS PRN, Starti ng Tue01/21/21 at 1230, Until Tue01/21/21 at 1714, Rash Or diphenhydrAMINE (BENADRYL) injection 25 mgJump to med 25 mg, Intravenous, EVERY 4 HOURS PRN, Starting Tue01/21/21 at 1230, Until Tue01/21/21 at 1714, Rash documented in this encounter Orders First Ordered Date Medications Ordered That Might Not Have Count Last Ordered Date Been Administered acetaminophen (TYLENOL) tablet 650 mg 1 01/21/2021 aluminum/magnesium hydroxide (MAALOX) 1 01/21/2021 oral suspension 30 mL diphenhydrAMINE (BENADRYL) capsule 25 mg 1 01/21/2021 diphenhydrAMINE (BENADRYL) injection 25 1 01/21/2021 mg docusate (COLACE) capsule 100 mg 1 01/21 nitroglycerin (NITROSTAT) tablet 0.4 mg 1 01/21/2021 temazepam (RESTORIL) capsule 15 mg 1 First Ordered Date Diet Count Last Ordered Date DISCHARGE DIET CARDIAC 1 01/21/2021 First Ordered Date Nursing Count Last Ordered Date DISCHARGE ACTIVITY OTHER 1 01/21/2021 DISCHARGE CONTACT 1 01/21/2021 DISCHARGE SIGNS/SYMPTOMS 1 01/21/2021 DISCHARGE WOUND CARE 1 01/21/2021 RISK REDUCTION PLAN 1 01/21/2021 First Ordered Date Discharge Count Last Ordered Date DISCHARGE PATIENT NOW 1 01/21/2021 First Ordered Date Vital Signs Count Last Ordered Date VITAL SIGNS 1 01/21/2021 First Ordered Date Cardiac Cath Count Last Ordered Date 12/17/2020 CARDIAC CATH REPORT 2 01/21/2021 First Ordered Date Intake & Output Count Last Ordered Date INTAKE AND OUTPUT 1 01/21/2021 documented in this encounter Additional Health Concerns Assessment Noted Time A fall risk assessment has been completed for the pat ient 01/21/2021 10:00 AM CDT PHQ-2 Depression Total Score: 0 07/07/2020 11:07 AM SHORE HAND DREDGE OR BARGE documented as of this encounter
--- OUTSIDE RECORDS SUMMARY | 2021-03-11 21:36 | XMS REPORT | Encounter Summary ---
Author Author [facility] Organization [facility] Address Unknown Phone Unavailable Care Team Providers Care Transportation Escort Name Role Phone Rosario Barrientos MD PCP Dion Parikh MD Unavailable Yury Darden MD Unavailable Danika Borjas MD [facility]available [facility] 3 Encounter Details Care Team Description Date Type Department Zach Conte RN 02/03/2021 Research Cardiology: Center for Encounter [facility] [address], [address] [place] [address] Social History Date Tobacco Use [...] / COVID-19? documented as of this encounter Functional Status Date of Assessment Functional Status Response 01/19/2021 Does the patient have a hearing impairment: Yes 01/19/2021 Does the patient have a visual impairment: No 01/19/2021 Does the patient have impaired ambulation: Yes 01/19/2021 Does the patient have an activity of daily living No (ADL) impairment: 01/19/2021 Does the patient have an instrumental activity of No daily living (IADL) impairment: Date of Assessment Cognitive Status Response 01/19/2021 Does the patient have a cognitive impairment: No documented as of this encounter Miscellaneous Notes * Research - Zach Conte RN - 02/03/2021 1:26 PM CDT Was reviewing all testing and found that TTE was not scheduled. Have scheduled this for 02/[address] [facility]. Spoke to patient's and she underst ands. documented in this encounter Plan of Treatment Not on filedocumented as of this encounter Goals Goal Patient Associated Recent Progress Patient-Stat Aut hor Goal Type Problems ed? 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
--- OUTSIDE RECORDS SUMMARY | 2021-03-11 21:36 | XMS REPORT | Encounter Summary ---
Author Author [facility] Organization [facility] Address Unknown Phone Unavailable Care Team Providers Care Skidder Operator Name Role Phone Rosario Barrientos MD PCP Dion Parikh MD Unavailable Yury Darden MD Unavailable Danika Borjas MD Unavailable [facility] 3 Reason for Referral * Test (Routine) Referred By Contact Referred To Contact Status Reason Specialty Diagnoses / Procedures Bill Monaco MD [address] [facility] [address] [place] [address] New Request Diagnoses Acute on chronic diastolic heart failure (HCC) Mitral valve insufficiency, unspecified etiology P rocedures 2D + DOPPLER ECHO Electronically signed by Bill Monaco MD at Encounter Details Care Team Description Date Type Department Zach Conte RN 02/03/2021 Research Cardiology: Center for [facility] [address], [address] [place] [address] Social History Date Tobacco Use [...] impairment: No documented as of this encounter Plan of Treatment Order Schedule Name Type Priority Associated Diag noses Expected: 02/04/2021, Expires: 2 2D + DOPPLER ECHO ECHO Routine Acute on chr onic diastolic heart failure (HCC) Mitral valve insufficiency, unspecified etiology documented as of this encounter Goals Goal Patient Associated Recent Progress Patient-Stat Aut hor Goal Type Problems ed? [facility] No Kaden Ott RN documented as of this encounter Visit Diagnoses Diagnosis Acute on chronic diastolic heart failur e (HCC) - Primary Acute on chronic diastolic heart failur e Mitral valve insufficiency, unspecified etiology documented in this encounter Additional Health Concerns Assessment Noted Time A fall risk assessment has been completed for the pat ient 01/21/2021 10:00 AM CDT PHQ-2 Depression Total Score: 0 07/07/2020 11:07 AM COASTAL TUG MATE documented as of this encounter
--- OUTSIDE RECORDS SUMMARY | 2021-03-11 21:36 | XMS REPORT | Encounter Summary ---
Author Author [facility] Organization [facility] Address Unknown Phone Unavailable Care Team Providers Care Spikemaking Supervisor Name Role Phone Rosario Barrientos MD PCP Dion Parikh MD Unavailable Yury Darden MD Unavailable Danika Borjas MD Unavailable [facility] 3 Encounter Details Care Team Description Date Type Department 01/19/2021 Travel Social History Date Tobacco Use Types Packs/Day Years Used Quit: 1986 Former Smoker Smokeless Tobacco: Never Used Comments Alcohol Use Standard Drinks/Week 7 cans per year Yes 1 (1 standard drink = 0.6 o z pure alcohol) Sex Assigned at Date Recorded Male 04/30/2020 1:30 PM CDT Date Recorded COVID-19 Exposure Response 01/19/2021 7:02 AM CDT In the last month, have [...] as of this encounter Plan of Treatment Not on filedocumented as of this encounter Goals Goal Patient Associated Recent Progress Patient-Stat Aut hor Goal Type Problems ed? [facility] No Kaden Ott RN documented as of this encounter Visit Diagnoses Not on filedocumented in this encounter Additional Health Concerns Assessment Noted Time A fall risk assessment has been completed for the pat ient 01/19/2021 8:24 AM CDT PHQ-2 Depression Total Score: 0 07/07/2020 11:07 AM BEADWORKER documented as of this encounter
--- OUTSIDE RECORDS SUMMARY | 2021-03-11 21:36 | XMS REPORT | Encounter Summary ---
Author Author [facility] Organization [facility] Address Unknown Phone Unavailable Care Team Providers Care Business Case Analyst Name Role Phone Rosario Barrientos MD PCP Dion Parikh MD Unavailable Yury Darden MD Unavailable Danika Borjas MD Unavailable Mahsa Freeman MD 3 Reason for Visit * Reason Comments New To Provider MARCY and heart cath 01/20 Encounter Details Care Team Description Date Type Department Mahsa Freeman MD [address] [facility] [place] [address] New To Provider (MARCY and heart cath 01/20 ) 01/19/2021 Office Visit Cardiology: [facility] [address] [place] [address] 1, [address] [place] [address] Social History Date Tobacco Use [...] Signs Reading Time Taken Comments Vital Sign 130/64 01/19/2021 8:24 AM CDT Blood Pressure 81 01/19/2021 8:24 AM CDT Pulse - - Temperature - - Respiratory Rate 100% 01/19/2021 8:24 AM CDT Oxygen Saturation - - Inhaled Oxygen Concentration 94.4 kg (208 lb 3.2 oz) 01/19/2021 8:24 AM CDT Weight 177.8 cm (5' 10") 01/19/2021 8:24 AM CDT Height 29.87 01/19/2021 8:24 AM CDT Body Mass Index documented in this encounter [...] impairment: No documented as of this encounter Patient Instructions * Patient Instructions* Mahsa Freeman MD - 01/19/2021 8:30 AM CDT 1. Med changes today: none 2. Please write down your weight, blood pressure, and heart rate daily and bring this log to all clinic visits. 3. Labs today: BNP, CMP, Mg, CBC, iron panel, lipids, A1C. 4. Return to see Dr. Freeman as needed, can follow with Dr. Benjamin locally. Please call the office with any questions or concerns [phone] (nurse triage ). To schedule or change an appointment call [phone]. Mahsa Freeman MD, PhD Ariane Muller, KAYLYN Shankar, MARIUSZ [facility] documented in this encounter Progress Notes * Mahsa Freeman MD - 01/19/2021 8:30 AM CDT Date of Service: 01/19/2021 Igor Glez Jr. is a 85 y.o. male. HPI Igor Glez Jr. is a 85 y.o. male from [place], [place] being evaluated in the advanced heart [...] enlargement and moderate right atrial enlargement. No thrombus was identified. 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 He lives with his dog and two cats as well as his of 60 years. He had an admission for heart failure in April 2020. He currently denies exertional chest pain, irregular heartbeat/palpitations, di zzy spells, syncope/near syncope, edema, orthopnea, and paroxysmal nocturnal dys pnea. His home blood pressure is typically 120-130/70-80. His weight monitored on home scale has been 200-212 pounds. Edema he was having last year resolved on current dose of lasix. No recent bleeding issues on Xarelto. Appetite is go od, though he doesn't eat as much as he used to. Sugars have been elevated, tho ugh he was dringing pepsi and eating candy, and he has moderated his carbohydrat e intake, additionally his family physician started Januvia. [...] reduced Acute on chronic diastolic heart failure (HCC) 05/05/2020 History of aortic valve replacement 05/05/2020 Persistent atrial fibrillation (HCC) 05/05/2020 COPD (chronic obstructive pulmonary disease) ([facility]) 05/05/2020 Acute on chronic heart failure with preserved ejection fraction (HFpEF) ([facility] ) 05/05/2020 CKD (chronic kidney disease) Diabetes mellitus ([facility]) Hypertension Mitral regurgitation Urinary incontinence without sensory awareness 12/18/2019 Urinary frequency 05/16/2018 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 Added automatically from request for surgery [id number] 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 Review of Systems [...] heart failure with preserved ejection fraction (HFpEF) ([facility]) Nonobstructive atherosclerosis of coronary artery PAF (paroxysmal atrial fibrillation) ([facility]) Chronic anticoagulation Essential hypertension Type 2 diabetes mellitus without complication, 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 EKG performed in clinic today is A. fib at a rate of 62 bpm with QRS 102 ms, QTC 4 4 ms. He is currently being evaluated for the Churdan trial fo r transcatheter mitral valve replacement. [...] continue to follow locally with his primary tire wrapper Dr. Schulz for his A. fib, nonobstructi [...] 70. I will defer to his primary tire wrapper and prima care physician for medication management. Mahsa Freeman MD, PhD [facility] Trans[facility] Cardiology Pager [phone] I spent 50 minutes in this encounter including approximately 30 minutes in couns eling on his heart disease. We reviewed the [...] 1 TABLET(S) ORAL EVERY NIGHT AT BEDTIME documented in this encounter Plan of Treatment Not on filedocumented as of this encounter Goals Goal Patient Associated Recent Progress Patient-Stat Aut hor Goal Type Problems ed? [facility] Kaden Walker RN documented as of this encounter Procedures Comments Procedure Name Priority Date/Time Associated Diag nosis ECG-SCAN 01/19/2021 12:00 AM CDT documented in this encounter Results * IRON + BINDING CAPACITY + %SAT+ FERRITIN (01/19/2021 9:51 AM CDT) Iron 52 50 - 185 MCG/DL [facility] Iron 429 (H) 270 - 380 MCG/DL [facility] Binding-TIBC % Saturation 12 (L) 28 - 42 % [facility] Ferritin 38 30 - 300 NG/ML [facility] Specimen Blood Performing Organization Address City/State/ZIP Code [place] Number [facility] [address] [place] [address] * LIPID PROFILE (01/19/2021 9:51 AM CDT) Cholesterol 163 <200 MG/DL [facility] Triglycerides 128 <150 MG/DL [facility] HDL 29 (L) >40 MG/DL [facility] LDL 108 (H) <100 mg/dL [facility] VLDL 26 MG/DL [facility] Non HDL 134 MG/DL [facility] Cholesterol Comment: Calculated non-HDL Cholesterol (non-HDL-C) indirectly measures LDL-C, Lp(a), IDL-C, and VLDL-C. It is a surrogate marker for Apoprotein B. Goal should be less than 130 mg/dL. Specimen Blood Performing Organization Address City/[facility]/ZIP Code [place] Number [facility] [address] [place] [address] * HEMOGLOBIN A1C (01/19/2021 9:51 AM CDT) Hemoglobin A1C 7.5 (H) 4.0 - 6.0 % [facility] Comment: The ADA recommends that most patients with type 1 and type 2 diabetes maintain an A1c level <7%. Specimen Blood Performing Organization Address City/[facility]/ZIP Code [place] Number [facility] [address] [place] [address] * MAGNESIUM (01/19/2021 9:51 AM CDT) Magnesium 2.3 1.6 - 2.6 mg/dL [facility] Specimen Blood Performing Organization Address [facility] [place] Number [facility] [address] [place] [address] * COMPREHENSIVE METABOLIC PANEL (01/19/2021 9:51 AM CDT) Sodium 136 (L) 137 - 147 MMOL/L [facility] Potassium 4.8 3.5 - 5.1 MMOL/L [facility] Chloride 102 98 - 110 MMOL/L [facility] Glucose 141 (H) 70 - 100 MG/DL [facility] Blood Urea 22 7 - 25 MG/DL [facility] Nitrogen Creatinine 2.00 (H) 0.4 - 1.24 MG/DL [facility] Calcium 9.4 8.5 - 10.6 MG/DL [facility] Total Protein 7.0 6.0 - 8.0 G/DL [facility] Total Bilirubin 1.0 0.3 - 1.2 MG/DL [facility] Albumin 3.9 3.5 - 5.0 G/DL [facility] Alk Phosphatase 85 25 - 110 U/L [facility] AST (SGOT) 16 7 - 40 U/L [facility] CO2 25 21 - 30 MMOL/L [facility] ALT (SGPT) 7 7 - 56 U/L [facility] Anion Gap 9 3 - 12 [facility] eGFR Non 32 (L) >60 mL/min [facility] Comment: [place] The eGFR is not validated f or use in drug dosing adjustments. Continue to use estimated creatinine clearance per dosing reference text. Please contact the Clinical Pharmacist for questions. eGFR 39 (L) >60 mL/min [facility] [place] Comment: The eGFR is not validated for use in drug dosing adjustments. Continue to use estimated creatinine clearance per dosing reference text. Please contact the Clinical Pharmacist for questions. Specimen Blood Performing Organization Address City/State/ZIP Code [place] Number [facility] [address] [place] [address] * BNP (B-TYPE NATRIURETIC PEPTI) (01/19/2021 9:51 AM CDT) B Type 125.0 (H) 0 - 100 PG/ML [facility] Natriuretic Peptide Specimen Blood Performing Organization Address City/State/ZIP Code [place] Number [facility] [address] [place] [address] * ECG-SCAN (01/19/2021 12:00 AM CDT) Narrative Performed At This result has an attachment that is n ot available. Ordered by an unspecified provider. documented in this encounter Visit Diagnoses Diagnosis Nonrheumatic mitral valve regurgitation - Primary Chronic heart failure with preserved ej ection fraction (HFpEF) (HCC) Nonobstructive atherosclerosis of coron ismaar artery PAF (paroxysmal atrial fibrillation) ([facility]) Atrial fibrillation Chronic anticoagulation Long-term (current) use of anticoagulan ts Essential hypertension Unspecified essential hypertension Type 2 diabetes mellitus without compli cation, unspecified whether shelter insulin use (HCC) documented in this encounter Historical Medications * This list may reflect changes made after this encounter. Start Date End Date Medication Sig Dispensed Refills 01/14/2021 JANUVIA 50 mg Take 1 tablet 0 by mouth daily. added in this encounter Additional Health Concerns Assessment Noted Time A fall risk assessment has been completed for the pat ient 01/19/2021 8:24 AM CDT PHQ-2 Depression Total Score: 0 07/07/2020 11:07 AM SPA ASSOCIATE documented as of this encounter
--- OUTSIDE RECORDS SUMMARY | 2021-03-11 21:36 | XMS REPORT | Encounter Summary ---
Author Author [facility] Organization [facility] Address Unknown Phone Unavailable Care Team Providers Care Diver Tender Name Role Phone Rosario Barrientos MD PCP Dion Parikh MD Unavailable Yury Darden MD Unavailable Danika Borjas MD Unavailable [facility]sa garces MD 3 Encounter Details Care Team Description Date Type Department 02/20/2021 Documentation Health Information Management: [facility], [address] [address] Social History Date Tobacco Use Types Packs/Day [...] Patient-Stat Aut hor Goal Type Problems ed? 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
--- OUTSIDE RECORDS SUMMARY | 2021-03-11 21:36 | XMS REPORT | Encounter Summary ---
Author Author [facility] Organization [facility] Address Unknown Phone Unavailable Care Team Providers Care It Quality Analyst Name Role Phone Rosario Barrientos MD PCP Dion Parikh MD Unavailable Yury Darden MD Unavailable Danika Borjas MD Unavailable [facility] center[facility] garces MD 3 Encounter Details Care Team Description Date Type Department Berny Storey MD [address] [facility] [place] [address] 01/19/2021 Hospital Pulmonary Function Lab: Encounter [address], [address] [place] [address] Social History Date Tobacco Use Types Packs/Day [...] Discharge Disposition Code Departure Means Destination Disposition Home Home or Self Care documented in this encounter Plan of Treatment Not on filedocumented as of this encounter Goals Goal Patient Associated Recent Progress Patient-Stat Aut hor Goal Type Problems ed? [facility] No Kaden Ott RN documented as of this encounter Procedures Comments Procedure Name Priority Date/Time Associated Diag nosis PFT COMPLETE PULM Routine 01/19/2021 Nonrheumatic mitral valve FUNCTION 10:17 AM CDT regurgitation Pre-op evaluation documented in this encounter Results * PFT COMPLETE PULM FUNCTION (01/19/2021 10:17 AM CDT) FVC-Pre 3.62 L [facility] FVC-%Pred-pre 98 % [facility] FVC-Post 3.48 L [facility] FVC-%Pred-Post 94 % [facility] FEV1-Pre 2.89 L [facility] FEV1-%Pred-Pre 107 % [facility] FEV1-Post 2.97 L [facility] FEV1-%Pred-Post 110 % [facility] FEV1/FVC-Pre 80 % [facility] [id number] 59 % [facility] [id number] 2.82 L/sec [facility] [id number]-%Pred-P 153 % [facility] re [id number] 3.50 L/sec [facility] [id number]-%Pred-P 190 % [facility] ost PEF-Post 470.3 L/min [facility] RVPleth-Pre 1.98 L [facility] RVPleth-%Pred-P 72 % [facility] re TLCPleth-Pre 5.72 L [facility] TLCPleth-%Pred- 81 % [facility] Pre DLCOunc-Pre 15.98 ml/min/mmHg [facility] DLCOunc-%Pred-P 71 % [facility] re DLCOunc-#SD -1.078 ml/min/mmHg [facility] DLCOcor-#SD -0.934 ml/min/mmHg [facility] DLVA-Pred 3.50 ml/min/mmHg/L [facility] DLVA-Pre 3.36 ml/min/mmHg/L [facility] DLVA-%Pred-Pre 96 % [facility] DLVA-SD 0.73 ml/min/mmHg/L [facility] DLVA-LLN 2.04 ml/min/mmHg/L [facility] DLVA-ULN 4.96 ml/min/mmHg/L [facility] DLVA-#SD -0.185 ml/min/mmHg/L [facility] [id number] 78 % [facility] Specimen Narrative Performed At This result has an attachment that is n ot available. 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
--- OUTSIDE RECORDS SUMMARY | 2021-03-11 21:36 | XMS REPORT | Encounter Summary ---
Author Author [facility] Organization [facility] Address Unknown Phone Unavailable Care Team Providers Care Fish Processing Supervisor Name Role Phone Rosario Barrientos MD PCP Dion Parikh MD Unavailable Yury Darden MD Unavailable Danika Borjas MD Unavailable [facility] garces MD 3 Encounter Details Care Team Description Date Type Department Zach Conte RN 02/20/2021 Research Cardiology: [facility] [address] [facility], [address] [place] [address] Social History Date Tobacco Use [...] Patient-Stat Aut hor Goal Type Problems ed? [facility] No Kaden Ott RN documented as of this encounter Visit Diagnoses Not on filedocumented in this encounter Additional Health Concerns Assessment Noted Time A fall risk assessment has been completed for the pat ient 01/21/2021 10:00 AM CDT PHQ-2 Depression Total Score: 0 07/07/2020 11:07 AM BIOCHEMISTRY SPECIALIST documented as of this encounter
--- OUTSIDE RECORDS SUMMARY | 2021-03-11 21:36 | XMS REPORT | Encounter Summary ---
Author Author [facility] Organization [facility] Address Unknown Phone Unavailable Care Team Providers Care Undercutter Operator Name Role Phone Rosario Barrientos MD PCP Dion Parikh MD Unavailable Yury Darden MD Unavailable Danika Borjas MD Unavailable [facility] gar[facility] MD 3 Reason for Visit * Auth/Cert Referred By Contact Referred To Contact Status Reason Specialty Diagnoses / Procedures Diagnoses Nonrheumatic mitral valve regurgitation Procedures NY R & L HRT CATH WINJX HRT ART& L VENTR IMG NY PRQ TRLUML CORONARY STENT W/ANGIO ONE ART/BRNCH ANGIOGRAPHY CORONARY ARTERY WITH RIGHT AND LEFT HEART CATHETERIZATION POSSIBLE PERCUTANEOUS CORONARY STENT PLACEMENT WITH ANGIOPLASTY Encounter Details Care Team Description Date Type Department Raquel Storey MD [address] [facility] [place] [address] ANGIOGRAPHY CORONARY ARTERY WITH RIGHT A ND LEFT HEART CATHETERIZATION 01/21/2021 Surgery Laboratory: [facility] [address] [place] [address] Surgery Details Trauma Case? Date/Time Status Location OR Service Patient Class Case Class Case Type 01/21/21 Posted HC2 LEAD GENERATION REPRESENTATIVE CV Lab 03 Interventi Planned El ective - 12:55 PM onal Extended Treating Cardiology Recovery conditions that are not life or limb threatenin g Panel 1 Procedure LRB Anes Op Region Wound Class Com ments ANGIOGRAPHY CORONARY N/A Sedation ARTERY WITH RIGHT AND LEFT HEART CATHETERIZATION POSSIBLE PERCUTANEOUS N/A Sedation WORK-UP FOR APOLLO. CORONARY STENT PLACEMENT WITH ANGIOPLASTY Panel Surgeon Surgeon Role Service 1 Raquel Storey MD Primary Interventional Card iology Special Needs 01/20 NEEDS: H&P/EKG/ CHECK LABS 0[address]ARC[address]/CVM JMH06/[id number] PER CM, MOVE FROM 01/20 TO 01/21, SENT EMAIL JASON ([id number])12/17 [place], [place] (118 MILES), [address], NEEDS CATH CONSENT PRIOR TO MARCY JASON ([id number]) Social History Date Tobacco Use Types Packs/Day [...] this encounter Progress Notes * Lorelei Delarosa, KAYLYN-GOLF SHOE SPIKE ASSEMBLER - 01/21/2021 2:26 PM CDT Post Cardiac Procedure Progress Note Name: Agustín Glez JrJake : 1935 Age: 85 y.o. Admit Date: [...] He is currently being evaluated for the Trevorton trial for transcatheter mitral valve replacement. He [...] insufficiency.. Patient to continue with evaluation for Trevorton trial. His post procedure course was uncomplicated [...] as above showing and LDL of 108. PROPERTY UTILIZATION OFFICER pr avastatin 10 mg daily. Hypertension: BP [...] To register for smoking cessation program call [phone] or visit www.smokefree.gov Diabetes Risk Goal: Non-diabetic: [...] you can call a kirit pratt at [phone] Physical Activity Risk Goal: Patients should have approval by a physician prior to beginning an exercis e program. Plan: Try to get at least 30 minutes of moderate physical activity five days a w [place] or 20 minutes of vigorous physical activity three days a week with your doct or's approval. To the Neurology and the NeuroSurg Discharge order sets set add a new order in t he education section titled "Risk Reduction Plan", in the comments section add t he following (default select this new order for neuro and neuro surg and ensure this information is added to the AVS). Questions About Your Stay For questions or concerns regarding your hospital stay: - DURING BUSINESS HOURS (8:00 AM - 4:30 PM): Call [phone] and asked to be transferred to your discharge attending physic antoine. - AFTER BUSINESS HOURS (4:30 PM - 8:00 AM, on weekends, or holidays): Call [phone] and ask the wastewater operator to page the on-call doctor for the discha rge attending physician. Discharging attending physician: RAQUEL STOREY [[id number]] Procedure Specific Activity *Resume your normal activity [...] MADAI [place] 01/21/2021 cc: Primary Care Physician: Rsoario Barrientos Referring physicians: Additional provider(s): * Anjana Rodriguez RN - 01/21/2021 2:25 PM CDT Patient discharged to home with all belongings. Discharge instructions, med rec onciliation and home wound care instructions given and explained to patient and family both verbally and written. Accompanied by RN. No complaints of pain or discomfort. R IJ remains clean, dry, and intact with no evidence of a hematoma after ambulation. Patient escorted [facility] via . Patient to follow up with [facility] Cardiology ([facility]) or on-call physician with any additional questions or concerns. All contact numbers provided. Patient and family acceptant of DC instuctions and report understanding to all information. * Vale Arenas RN - 01/20/2021 11:57 AM CDT Cardiovascular Labs Scheduling Checklist 1. Date of procedure:01/21 2. Arrival time:0930 (RESCHEDULE FROM PREVIOUS DAY) 3. Patient instructed NPO after MN; clear liquids until: 829 4. Instructed to check-in at the [facility] registration desk and bring phot o id, insurance cards and a current list of home medications. Pack an overnight bag in the event you are admitted overnight: Y 5. If you have a history of sleep apnea and use a C-Pap or Bi-Pap machine, pleas e bring it with you to the hospital: N 6. Have a car driver available upon discharge as you may not be cleared to drive for 24 or 48 hours post procedure. (exception is RHC/biopsy patient with internal j ugular approach not receiving sedation): Y 7. If the patient's language preference is other than Iranian, please indicated [place] language and need for japanese interpreter: N 8. Patient instructed to drink 64 [...] 20. Patient acknowledges understanding of pre-procedure instructions: Y-[facility] CCINATED documented in this encounter H&P Notes * Lorelei Delarosa APRN-GOLF SHOE SPIKE ASSEMBLER - 01/21/2021 7:39 AM CDT Images from the original note were not included. Patient presents for cardiac procedure. Please see previously completed H&P below. TITA Bautista (pager [phone]) Mahsa Freeman MD Physician Specialty: Advanced Heart Failure and Transplant Cardiology Progress Notes Addendum Creation Time: 01/19/21830 Related encounter: Office Visit from 01/19/2021 in Cardiology: [facility] Addendum Date of Service: 01/19/2021 Agustín Glez Jr. is a 85 y.o. male. HPI Agustín Glez Jr. is a 85 y.o. 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 [...] continue to follow locally with his primary implant coordinator Dr. Schulz for his A. fib, nonobstructi [...] 70. I will defer to his primary implant coordinator and prima care physician for medication management. Mahsa Freeman MD, PhD Advanced Heart Failure and Transplant Cardiology Pager [phone] I spent 50 minutes in this encounter including approximately 30 minutes in couns braden on his heart disease. We reviewed the [...] PM CDT Associated Order(s): CARDIAC CATH REPORT [facility] CARDIAC CATHETERIZATION REPORT Page 1 AGUSTÍN Ferguson : 1935 #: [id number] DANNIELLE MR #/Billing ID #: [id number] / [id number] DATE: 01/21/2021 MINGLE OPERATOR: Raquel Storey MD DICTATING PROVIDER: Raquel Storey MD REFERRING PHYSICIAN: Raquel Storey MD PROCEDURES PERFORMED: Right heart catheterization. PROCEDURE: Mr. Glez is an 85-year-old male with a history of severe mitral i nsufficiency, who is being evaluated for consideration of transcatheter mitral v alve replacement. He presented for invasive right heart hemodynamics. On arriv al to the chemical laboratory assistant, he was hemodynamically stable and pain free. [...] vei n utilizing a micropuncture needle. A 7-[place] venous sheath was advanced witho ut complication. We obtained right heart hemodynamics. Upon completion of proc edure, all catheters and wires were removed and he was transferred back to his r oom, hemodynamically stable and pain free. FINDINGS: [...] with severe mitral insufficiency. MD WILLIAN Vasquez/Yaa /[id number] cc: - Raquel Storey MD documented in this encounter Plan of Treatment Not on filedocumented as of this encounter Goals Goal Patient Associated Recent Progress Patient-Stat Aut hor Goal Type Problems ed? [facility] No Kaden Ott RN documented as of [...] Glucose, POC 96 70 - 100 MG/DL [facility] Specimen Performing Organization Address City/State/ZIP Code [place] Number MAIN LAB [address] [place] [address] * CARDIAC CATH REPORT (01/21/2021 12:31 PM CDT) Procedure Note Raquel Storey MD - 01/21/2021 12:31 PM CDT [facility] CARDIAC CATHETERIZATION REPORT Page 1 AGUSTÍN Ferguson : 1935 #: [id number] MR #/Billing ID #: [id number] / [id number] DATE: 01/21/2021 MINGLE OPERATOR: Raquel Storey MD DICTATING PROVIDER: Raquel Storey MD REFERRING PHYSICIAN: Raquel Storey MD PROCEDURES PERFORMED: Right heart catheterization. PROCEDURE: Mr. Glez is an 85-year-old male with a history of severe mitral insufficiency, who is being evaluated for consideration of transcatheter mitral valve replacement. He presented for invasive right heart hemodynamics. On arrival to the chemical laboratory assistant, he was hemodynamically stable and pain free. [...] jugular vein utilizing a micropuncture needle. A 7-[place] venous sheath was advanced without complication. We [...] with severe mitral insufficiency. MD WILLIAN Vasquez/Yaa /[id number] cc: - Raquel Storey MD Performing Organization Address City/State/ZIP Code [place] Number OTHER OUTSIDE LAB * O2HGB SAT-VENOUS POC (01/21/2021 12:25 PM CDT) O2HGB 66.1 55 - 71 % [facility] SAT-Venous POC Specimen Performing Organization Address City/[facility] [address]/ZIP Code [place] Number [facility] [address] [place] [address] * O2HGB SAT-VENOUS POC (01/21/2021 12:20 PM CDT) O2HGB 66.1 55 - 71 % [facility] SAT-Venous POC Specimen Performing Organization Address City/[facility] [address]/[facility] [place] Number [facility] [address] [place] [address] * BASIC METABOLIC PANEL (01/21/2021 10:13 AM CDT) Pathologist [facility] Sodium 136 (L) 137 - 147 MMOL/L [...] (L) >60 mL/min [facility] Comment: [place] The eGFR is not validated f or use in drug dosing adjustments. Continue to use estimated creatinine clearance per dosing reference text. Please contact the Clinical Pharmacist for questions. eGFR 42 (L) >60 mL/min [facility] [place] Comment: The eGFR is not validated for use in drug dosing adjustments. Continue to use estimated creatinine clearance per dosing reference text. Please contact the Clinical Pharmacist for questions. Specimen Blood Performing Organization Address [facility] [address]/ZIP Code [place] Number [facility] [address] [place] [address] * POC GLUCOSE (01/21/2021 10:08 AM CDT) Glucose, POC 124 (H) 70 - 100 MG/DL [facility] Specimen Performing Organization Address City/[facility] [address]/[facility] [place] Number [facility] [address] [place] [address] * PROCEDURE RECORD-SCAN (01/21/2021 12:00 AM CDT) Narrative Performed At This result has an attachment that is n ot available. Ordered by an unspecified provider. * TELEMETRY STRIPS-SCAN (01/21/2021 12:00 AM CDT) Narrative Performed At This result has an attachment that is n ot available. Ordered by an unspecified provider. documented in this encounter Visit Diagnoses Diagnosis Nonrheumatic mitral valve regurgitation documented in this encounter Administered Medications Action [...] Been Administered acetaminophen (TYLENOL) tablet 650 mg 01/21/2021 aluminum/magnesium hydroxide (MAALOX) 01/21/2021 oral suspension 30 mL diphenhydrAMINE (BENADRYL) capsule 25 mg 01/21/2021 diphenhydrAMINE (BENADRYL) injection 25 1 01/21/2021 mg docusate (COLACE) capsule 100 mg 01/21 nitroglycerin (NITROSTAT) tablet 0.4 mg 1 [...] Depression Total Score: 0 07/07/2020 11:07 AM RADIAGRAPH OPERATOR documented as of this encounter
--- OUTSIDE RECORDS SUMMARY | 2021-03-11 21:36 | XMS REPORT | Encounter Summary ---
Author Author [facility] Organization [facility] Address Unknown Phone Unavailable Care Team Providers Care Continuous Pillowcase Cutter Name Role Phone Rosario Barrientos MD PCP Dion Parikh MD Unavailable Yury Darden MD Unavailable Danika Borjas MD Unavailable Mahsa Freeman MD 3 Encounter Details Care Team Description Date Type Department Mahsa Freeman MD [address] [facility] [address] [place] [address] 01/19/2021 Hospital Laboratory: Main Ca mpus, Encounter [facility] [address] [facility] [address] [place] [address] Social History Date Tobacco Use Types Packs/Day [...] Patient-Stat Aut hor Goal Type Problems ed? [facility] No Kaden Ott RN documented as of this encounter Procedures Comments Procedure Name Priority Date/Time Associated Diag nosis HC IRON BINDING CAPACITY Routine 01/19/2021 Nonrh eumatic mitral valve + %SAT 9:51 AM CDT regurgitation Chronic heart failure with preserved ejection fraction (HFpEF) (HCC) Nonobstructive atherosclerosis of coronary artery HC CBC,AUTOMATED Routine 01/19/2021 Pre-procedure lab exam 9:51 AM CDT Nonrheumatic mitral valve regurgitation HC B-TYPE NATRIURETIC Routine 01/19/2021 Nonrheum atic mitral valve PEPTIDE 9:51 AM CDT regurgitation Chronic heart failure with preserved ejection fraction (HFpEF) (HCC) Nonobstructive atherosclerosis of coronary artery HC MAGNESIUM Routine 01/19/2021 Nonrheumatic mi tral valve 9:51 AM CDT regurgitation Chronic heart failure with preserved ejection fraction (HFpEF) (HCC) Nonobstructive atherosclerosis of coronary artery HC HEMOGLOBIN A1C Routine 01/19/2021 Nonrheumatic mitral valve 9:51 AM CDT regurgitation Chronic heart failure with preserved ejection fraction (HFpEF) (HCC) Nonobstructive atherosclerosis of coronary artery Type 2 diabetes mellitus without complication, unspecified whether buttermaker continuous churn insulin use (HCC) HC Routine 01/19/2021 Nonrheumatic mi tral valve LIPID-5:CHOL/TRG/HDL/LDL+ 9:51 AM CDT regurgitati on VLDL Chronic heart failure with preserved ejection fraction (HFpEF) (HCC) Nonobstructive atherosclerosis of coronary artery HC COMPREHENSIVE Routine 01/19/2021 Nonrheumatic mitral valve METABOLIC PANEL 9:51 AM CDT regurgitation Chronic heart failure with preserved ejection fraction (HFpEF) (HCC) Nonobstructive atherosclerosis of coronary artery documented in this encounter Results * LIPID PROFILE (01/19/2021 9:51 AM CDT) [...] 130 mg/dL. Specimen Blood Performing Organization Address City/[facility]/ZIP Code [place] Number [facility] [address] [place] [address] * CBC (01/19/2021 9:51 AM CDT) White Blood 6.9 4.5 - 11.0 K/UL [facility] Cells RBC 4.59 4.4 - 5.5 M/UL [facility] Hemoglobin 12.9 (L) 13.5 - 16.5 GM/DL [facility] Hematocrit 39.2 (L) 40 - 50 % [facility] MCV 85.5 80 - 100 FL [facility] MCH 28.1 26 - 34 PG [facility] MCHC 32.8 32.0 - 36.0 G/DL [facility] RDW 16.6 (H) 11 - 15 % [facility] Platelet Count 169 150 - 400 K/UL [facility] MPV 9.1 7 - 11 FL [facility] Specimen Blood Performing Organization Address [facility] [place] Number [facility] [address] [place] [address] * BNP (B-TYPE NATRIURETIC PEPTI) (01/19/2021 9:51 AM CDT) B Type 125.0 (H) 0 - 100 PG/ML [facility] Natriuretic Peptide Specimen Blood Performing Organization Address City/[facility] [place] Number [facility] [address] [place] [address] * COMPREHENSIVE METABOLIC PANEL (01/19/2021 9:51 AM [...] (L) >60 mL/min [facility] Comment: [place] The eGFR is not validated f or use in drug dosing adjustments. Continue to use estimated creatinine clearance per dosing reference text. Please contact the Clinical Pharmacist for questions. eGFR 39 (L) >60 mL/min [facility] [place] Comment: The eGFR is not validated for use in drug dosing adjustments. Continue to use estimated creatinine clearance per dosing reference text. Please contact the Clinical Pharmacist for questions. Specimen Blood Performing Organization Address City/State/ZIP Code [place] Number [facility] [address] [place] [address] * MAGNESIUM (01/19/2021 9:51 AM CDT) Magnesium 2.3 1.6 - 2.6 mg/dL [facility] Specimen Blood Performing Organization Address City/State/ZIP Code [place] Number [facility] [address] [place] [address] * HEMOGLOBIN A1C (01/19/2021 9:51 AM CDT) Hemoglobin A1C 7.5 (H) 4.0 - 6.0 % [facility] Comment: The ADA recommends that most patients with type 1 and type 2 diabetes maintain an A1c level <7%. Specimen Blood Performing Organization Address City/State/ZIP Code [place] Number MAIN LAB [address] [place] [address] * IRON + BINDING CAPACITY + %SAT+ [...] Number [facility] [address] [place] [address] documented in this encounter Visit Diagnoses Diagnosis Nonrheumatic mitral valve regurgitation Chronic heart failure with preserved ej ection fraction (HFpEF) (HCC) Nonobstructive atherosclerosis of coron isamar artery Type 2 diabetes mellitus without compli cation, unspecified whether buttermaker continuous churn insulin use ([facility]) Pre-procedure lab exam Pre-procedural laboratory examination documented in this encounter Additional Health Concerns Assessment Noted Time A fall risk assessment has been completed for the pat ient 01/19/2021 8:24 AM CDT PHQ-2 Depression Total Score: 0 07/07/2020 11:07 AM COMMUNICATIONS WRITER documented as of this encounter
--- OUTSIDE RECORDS SUMMARY | 2021-03-11 21:36 | XMS REPORT | Encounter Summary ---
Author Author [facility] Organization [facility] Address Unknown Phone Unavailable Care Team Providers Care K 9 Handler/ Deputy Name Role Phone Rosario Barrientos MD PCP Dion Parikh MD Unavailable Yury Darden MD Unavailable Danika Borjas MD Unavailable [facility] MD 3 Encounter Details Care Team Description Date Type Department 01/21/2021 Travel Social History Date Tobacco Use Types [...] Problems ed? [facility] No Kaden Ott RN documented as of this encounter Visit Diagnoses Not on filedocumented in this encounter Additional Health Concerns Assessment Noted Time A fall risk assessment has been completed for the pat ient 01/21/2021 10:00 AM CDT PHQ-2 Depression Total Score: 0 07/07/2020 11:07 AM LOSS PREVENTION INVESTIGATOR documented as of this encounter
--- OUTSIDE RECORDS SUMMARY | 2021-03-11 21:36 | XMS REPORT | Encounter Summary ---
Author Author [facility] Organization [facility] Address Unknown Phone Unavailable Care Team Providers Care Jewelry Coater Name Role Phone Rosario Barrientos MD PCP Dion Parikh MD Unavailable Yury Darden MD Unavailable Danika Borjas MD Unavailable [facility] 3 Encounter Details Care Team Description Date Type Department Purvi Null, CHEMICAL CHECKER [id number] [place] [address] 01/20/2021 Anesthesia Cardiology:Center f or [facility] [address], [address] [place] [address] Anesthesia Record Responsible Anesthesiologist Anesthesia Start Time Anesthesi a Stop Time Procedure Name S EC-TRANSESOPHAGEAL ECHO (canceled) No events on file. Meds * No agents on file. * No blood administrations on file. No LDAs on file. documented in this encounter Social History Date Tobacco Use Types Packs/Day [...] Patient-Stat Aut hor Goal Type Problems ed? [facility] No Kaden Ott RN documented as of this encounter Visit Diagnoses Not on filedocumented in this encounter Additional Health Concerns Assessment Noted Time A fall risk assessment has been completed for the pat ient 01/19/2021 8:24 AM CDT PHQ-2 Depression Total Score: 0 07/07/2020 11:07 AM REMNANT SORTER documented as of this encounter
--- OUTSIDE RECORDS SUMMARY | 2021-03-11 21:36 | XMS REPORT | Encounter Summary ---
Author Author [facility] Organization [facility] Address Unknown Phone Unavailable Care Team Providers Care Cash Manager Name Role Phone Rosario Barrientos MD PCP Dion Parikh MD Unavailable Yury Darden MD Unavailable Danika Borjas MD [facility]available [facility] Reason for Referral * Consult, Test & Treat (Routine) Referred By Contact Referred To Contact Status Reason Specialty Diagnoses / Procedures Berny Storey MD [address] [place] [id number] [facility] [address] [phone] Authorized Cardiology Diagnoses Nonrheumatic mitral valve regurgitation Pre-op evaluation P rocedures PV CAROTID ARTERY DUPLEX SCAN VA DUPLEX SCAN EXTRACRANIAL ART COMPL BI STUDY Electronically signed by Berny Storey MD at Reason for Visit * Consult, Test & Treat (Routine) Referred By Contact Referred To Contact Status Reason Specialty Diagnoses / Procedures Berny Storey MD [address] [place] [id number] [facility] 4000 [facility], [address] [address] Authorized Cardiology Diagnoses Nonrheumatic mitral valve regurgitation Pre-op evaluation P rocedures PV CAROTID ARTERY DUPLEX SCAN VA DUPLEX SCAN EXTRACRANIAL ART COMPL BI STUDY Encounter Details Care Team Description Date Type Department Mahsa Freeman MD [address] [facility] [address] [place], [place] [id number] 01/19/2021 Hospital Cardiology:Center f or Encounter [facility] [address] [facility] [address] [place] [address] Social History Date Tobacco Use [...] Patient-Stat Aut hor Goal Type Problems ed? [facility] Kaden Walker RN documented as of this encounter Procedures Comments Procedure Name Priority Date/Time Associated Diag nosis PV CAROTID ARTERY DUPLEX Routine 01/19/2021 [facility] 8:03 AM CDT regurgitation Pre-op evaluation documented in this encounter Results * PV CAROTID ARTERY DUPLEX SCAN (01/19/2021 8:03 AM CDT) LEFT CCA DIST 0.63 m/s OTHER OUTSIDE SYS LAB LEFT CCA DIST 0.20 m/s OTHER OUTSIDE GREEN LAB LEFT CCA PROX 0.62 m/s OTHER OUTSIDE SYS LAB LEFT CCA PROX 0.18 m/s OTHER OUTSIDE GREEN LAB LEFT ICA DIST 0.59 m/s OTHER OUTSIDE SYS LAB LEFT ICA DIST 0.17 m/s OTHER OUTSIDE GREEN LAB LEFT ICA MID 0.52 m/s OTHER OUTSIDE SYS LAB LEFT ICA MID 0.16 m/s OTHER OUTSIDE GREEN LAB LEFT ICA PROX 0.40 m/s OTHER OUTSIDE SYS LAB LEFT ICA PROX 0.14 m/s OTHER OUTSIDE GREEN LAB LEFT ECA SYS 0.92 m/s OTHER OUTSIDE LAB LEFT SUBCLAVIAN 0.93 m/s OTHER OUTSIDE SYS LAB LEFT VERTEBRAL 0.44 m/s OTHER OUTSIDE SYS LAB RIGHT CCA DIST 0.42 m/s OTHER OUTSIDE SYS LAB RIGHT CCA DIST 0.13 m/s OTHER OUTSIDE GREEN LAB RIGHT CCA PROX 0.61 m/s OTHER OUTSIDE SYS LAB RIGHT CCA PROX 0.13 m/s OTHER OUTSIDE GREEN LAB RIGHT ICA DIST 0.73 m/s OTHER OUTSIDE SYS LAB RIGHT ICA DIST 0.23 m/s OTHER OUTSIDE GREEN LAB RIGHT ICA MID 0.41 m/s OTHER OUTSIDE SYS LAB RIGHT ICA MID 0.11 m/s OTHER OUTSIDE GREEN LAB RIGHT ICA PROX 0.37 m/s OTHER OUTSIDE SYS LAB RIGHT ICA PROX 0.10 m/s OTHER OUTSIDE GREEN LAB RIGHT ECA SYS 1.10 m/s OTHER OUTSIDE LAB RIGHT 0.43 m/s OTHER OUTSIDE SUBCLAVIAN SYS LAB RIGHT VERTEBRAL 0.37 m/s OTHER OUTSIDE SYS LAB CV ECHO PV Renny Harris RVT OTHER OUTSIDE [employer] LAB RIGHT ICA/CCA 1.7 m/s OTHER OUTSIDE SYS LAB Cardiology Em Epiq OTHER OUTSIDE Ultrasound LAB Machine LEFT ICA/CCA 0.94 m/s OTHER OUTSIDE SYS LAB Specimen Narrative Performed At OTHER OUTSIDE LAB 1. Mild atheromatous plaque visualized in bilateral common and internal carotid arteries 2. No hemodynamically significant (>50% ) stenosis measured in the common and internal carotid arteries bilateral ly 3. There is normal antegrade flow in bi lateral vertebral arteries 4. No evidence of proximal subclavian s tenosis bilaterally 5. Irregular cardiac rhythm by spectral Doppler There are no prior studies for comparis on. 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
--- OUTSIDE RECORDS SUMMARY | 2021-03-11 21:36 | XMS REPORT | Encounter Summary ---
Author Author [facility] Organization [facility] Address Unknown Phone Unavailable Care Team Providers Care Grades 9 Thru 12 Visiting Teacher Name Role Phone Rosario Barrientos MD PCP Dion Parikh MD Unavailable Yury Darden MD Unavailable Danika Borjas MD Unavailable Encounter Details Care Team Description Date Type Department Alee Reveles RN 01/16/2021 Telephone Cardiology:Center f or [facility] [address] [place] [address] Social History Date Tobacco Use Types Packs/Day Years Used Quit: 1986 Former Smoker Smokeless Tobacco: Never Used Comments Alcohol Use Standard Drinks/Week 7 cans per year Yes 1 (1 standard drink = 0.6 o z pure alcohol) Sex Assigned at Date Recorded Male 04/30/2020 1:30 PM CDT Date Recorded COVID-19 Exposure Response 01/02/2021 9:06 AM CDT In the last month, have [...] as of this encounter Miscellaneous Notes * Telephone Encounter - Alee Reveles RN - 01/16/2021 11:57 AM CDT This is a reminder that you have a scheduled MARCY on 01/20/21 at 0800 Please remember to not eat or drink after midnight except for sips of water ONLY with morning medications which should include all heart medications such as: bl ood pressure medications, antiarrhythmic and blood thinners if you normally take those in the morning. Please do not take any diuretics or vitamins. Additionall y, please do not consume any mints or cough drops the day of your procedure. Please arrive 60 minutes before your appointment time in order to be prepared fo r the procedure. You must have a courtesy car driver present or available to escort you home. If you have any questions please feel free to contact your [facility]) [facility] nurses at [phone]. 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
--- OUTSIDE RECORDS SUMMARY | 2021-03-11 21:36 | XMS REPORT | Clinical Summary ---
Author Author [facility] Organization [facility] Address Unknown Phone Unavailable Care Team Providers Care Exceptional Children Teacher Assistant Name Role Phone Rosario Barrientos MD PCP Dion Parikh MD Unavailable uYry Darden MD Unavailable Danika Borjas MD Unavailable [facility] hospital[facility] garces MD 3 Source Comments Some departments are not documenting in the electronic medical record. If you d o not see the information that you expected, contact Release of Information in [facility] Health Information Management department at [phone] for further assistan ce in locating additional records.[facility] Allergies No Known Active Allergies Medications End Date Status Medication Sig Dispensed Refills Start Date Active pravastatin (PRAVACHOL) Take 10 mg by 0 10 mg tablet mouth at 8 bedtime daily. Active tamsulosin (FLOMAX) 0.4 Take 0.4 mg 0 mg capsule by mouth 8 daily. Active dilTIAZem CD (CARDIZEM Take 120 mg 0 02 CD) 120 mg capsule by mouth 0 daily. Active zolpidem CR (AMBIEN CR) TAKE 1 0 6.25 mg tablet TABLET(S) 0 ORAL EVERY NIGHT AT BEDTIME Active pantoprazole DR Take one 60 tablet 1 (PROTONIX) 40 mg tablet tablet by 0 mouth twice daily. Additional Information Patient taking differently: 40 mg Oral DAILY, Informant: Spouse, Reported on 01/20/2021 Active spironolactone Take one-half 15 tablet 1 (ALDACTONE) 25 mg tablet tablet by 0 mouth daily. Take with food. Active furosemide (LASIX) 40 mg Take one 30 tablet 1 1 tablet tablet by 0 mouth daily. Active potassium chloride SR Take two 60 tablet 1 04/25 (K-DUR) 20 mEq tablet tablets by 0 mouth daily. Additional Information Patient taking differently: 20 mEq Oral DAILY, Informant: Spouse, Reported on 01/20/2021 Active rivaroxaban (XARELTO) 15 Take 15 mg by 0 mg tablet mouth daily. Take with food. Active nebivoloL (BYSTOLIC) 10 Take 1 tab at 2 tablet 0 mg tabletIndications: 8pm the night 1 pre-procedure before the test and 1 tab at 8am the morning of the test. Indications: pre-procedure Active JANUVIA 50 mg Take 1 tablet 0 by mouth 1 daily. Active Problems Problem Noted Date Acute on chronic diastolic heart failure 05/05/2020 History of aortic valve replacement 05/05/2020 Persistent atrial fibrillation 05/05/2020 COPD (chronic obstructive pulmonary disease) 020 Acute on chronic heart failure with preserved ejectio n fraction (HFpEF) 05/05/2020 Urinary incontinence without sensory awareness 12/17 Urinary frequency 05/16/2018 Postprocedural stricture of anterior urethra 018 Overview: Formatting of this note might be differ ent from the original. Added automatically from request for carmen haylee [id number] 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 Mitral regurgitation CKD (chronic kidney disease) Diabetes mellitus Hypertension Hearing reduced Encounters Care Team Description Date Type Specialty 02/20/2021 Documentation Zach Conte RN 02/20/2021 Research Cardiology Encounter Zach Conte RN 02/18/2021 Research Cardiology Encounter Zach Conte RN 02/03/2021 Research Cardiology Encounter Zach Conte, MARIUSZ 02/03/2021 Research Cardiology Encounter Berny Storey MD ANGIOGRAPHY CORONARY ARTERY WITH RIGHT A ND LEFT HEART CATHETERIZATION 01/21/2021 Surgery Cardiology Berny Storey MD Mitral regurgitation 01/21/2021 Hospital Cardiology Encounter 01/21/2021 Travel Purvi Null CRNA 01/20/2021 Anesthesia Cardiology Event Phillip Murphy MD 01/20/2021 Anesthesia Cardiology Event Berny Storey MD Lobell, Samuel S, MD Canceled (Patient-Unable to perform exam ) 01/20/2021 Hospital Cardiology Encounter 01/20/2021 Travel Berny Storey MD 01/19/2021 Hospital Encounter Mahsa Freeman MD 01/19/2021 Hospital Lab Encounter Mahsa Freeman MD New To Provider (MARCY and heart cath 01/20 ) 01/19/2021 Office Visit Cardiology Mahsa Freeman MD 01/19/2021 Hospital Cardiology Encounter 01/19/2021 Travel Alee Reveles RN 01/16/2021 Telephone Cardiology Soha Camarillo APRN-CASE MAKING MACHINE OPERATOR 01/02/2021 Hospital Lab Encounter Danika Borjas MD Chronic kidney disease, stage 4 (severe) (HCC) (Primary Dx); Screening for hematuria or proteinuria; Essential hypertension; Vitamin D deficiency 01/02/2021 Office Visit Nephrology 01/02/2021 Travel Taylor Scott RN Nonrheumatic mitral valve regurgitation (Primary Dx) 12/17/2020 Prep for Case Cardiology Bill Monaco MD 12/09/2020 Hospital Radiology Encounter Bill Monaco MD Stage 3b chronic kidney disease (HCC) (P rimary Dx); Nonrheumatic mitral valve regurgitation 12/09/2020 Infusion Infusion 12/09/2020 Travel from Last 3 Months Immunizations Name Administration Dates Next Due Flu Vaccine =>65 YO 05/15/2020 High-Dose Quadrivalent (PF) Tdap Vaccine 01/17/2017 Surgical History Surgery Date Site/Laterality Comments HX APPENDECTOMY HX CHOLECYSTECTOMY HX HEART CATHETERIZATION COLONOSCOPY URETHROPLASTY 01/27/2018 Perineum/N/A PERINEAL URETHR OSTOMY performed by Chepe Chandler MD at Main OR/Periop AORTIC VALVE REPLACEMENT 07/25/2008 - [place] 07/24/2009 Medical History Medical History Date Comments Cancer of skin Diabetes mellitus (HCC) Arthritis Hearing reduced Cancer (HCC) mlanoma on back Mitral regurgitation CKD (chronic kidney disease) Hypertension Obesity PAF (paroxysmal atrial fibrillation) (HCC) Family History Medical History Relation Name Comments Stroke Father Hypertension Maternal Aunt Stroke Maternal Grandmother Diabetes Mother Cancer Paternal bladder Grandmother Depression Sister Diabetes Sister Relation Name Status Comments Father Maternal Aunt Maternal Grandmother Mother Paternal Grandmother Sister Social History Date Tobacco Use Types Packs/Day Years Used Quit: 1986 Former Smoker Smokeless Tobacco: Never Used Tobacco Cessation: Counseling Given: No Comments Alcohol Use Standard Drinks/Week 7 cans per year Yes 1 (1 standard drink = 0.6 o z pure alcohol) Sex Assigned at Date Recorded Male 04/30/2020 1:30 PM CDT Last Filed Vital Signs Reading Time Taken Comments Vital Sign 116/74 01/21/2021 2:00 PM CDT Blood Pressure 81 01/21/2021 2:00 PM CDT Pulse 37 C (98.6 F) 10/27/2020 2:06 PM CDT Temperature 16 10/27/2020 2:06 PM CDT Respiratory Rate 95% 01/21/2021 1:31 PM CDT Oxygen Saturation - - Inhaled Oxygen Concentration 94.3 kg (208 lb) 01/20/2021 4:29 PM CDT Weight 177.8 cm (5' 10") 01/20/2021 4:29 PM CDT Height 29.84 01/20/2021 4:29 PM CDT Body Mass Index Plan of Treatment Health Maintenance Due Date Last Done Comments MEDICARE ANNUAL WELLNESS 1935 VISIT PNEUMONIA (PPSV23) 1941 VACCINE (1 of 2 - PPSV23) DILATED EYE EXAM 1953 FOOT EXAM 1953 PHYSICAL (COMPREHENSIVE) 1953 EXAM SHINGLES RECOMBINANT 1985 VACCINE (1 of 2) INFLUENZA VACCINE 04/24/2021 05/15/2020 HBA1C 07/21/2021 01/19/2021, 05/05/2020 MICROALBUMIN 01/02/2022 01/02/2021, 03/28/2020 DTAP/TDAP VACCINES (2 - 01/17/2027 01/17/2017 Td or Tdap) COVID-19 VACCINE Completed 09/18/2020, 08/21/2020 Goals Goal Patient Associated Recent Progress Patient-Stat Aut hor Goal Type Problems ed? [facility] No Kaden Ott RN Procedures Comments Procedure Name Priority Date/Time Associated [...] ic mitral valve 9:43 AM CDT regurgitation PROCEDURE RECORD-SCAN 01/21/2021 12:00 AM CDT TELEMETRY STRIPS-SCAN 01/21/2021 12:00 AM CDT MARCY W/O CONTRAST & W/ 3D Routine 01/20/2021 Nonrh eumatic mitral valve ON CART 4:28 PM CDT regurgitation POC GLUCOSE 01/20/2021 2:58 PM CDT ECG-SCAN 01/20/2021 12:00 AM CDT PFT COMPLETE PULM Routine 01/19/2021 Nonrheumatic mitral valve FUNCTION 10:17 AM CDT regurgitation Pre-op evaluation HC Routine 01/19/2021 Nonrheumatic mi tral valve LIPID-5:CHOL/TRG/HDL/LDL+ 9:51 AM CDT regurgitati on VLDL Chronic heart failure with preserved ejection fraction (HFpEF) ([facility]) Nonobstructive atherosclerosis of coronary artery HC CBC,AUTOMATED [...] 2 diabetes mellitus without complication, unspecified whether supervisor intermediates insulin use (HCC) HC IRON BINDING CAPACITY Routine 01/19/2021 Nonrh eumatic mitral valve + %SAT 9:51 AM CDT regurgitation Chronic heart failure with preserved ejection fraction (HFpEF) (HCC) Nonobstructive atherosclerosis of coronary artery PV CAROTID ARTERY DUPLEX Routine 01/19/2021 Nonrh eumatic mitral valve SCAN 8:03 AM CDT regurgitation Pre-op evaluation ECG-SCAN 01/19/2021 12:00 AM CDT HC 25-OH VITAMIN D Routine 01/02/2021 Chronic kid javy disease, 10:38 AM CDT stage 4 (severe) (HCC) HC BASIC METABOLIC PANEL Routine 01/02/2021 Chron ic kidney disease, 10:38 AM CDT stage 4 (severe) (HCC) HC PTH Routine 01/02/2021 Chronic kidney disease, 10:38 AM CDT stage 4 (severe) (HCC) HC MICROALB/CR RATIO, Routine 01/02/2021 Chronic kidney disease, RANDOM 9:56 AM CDT stage 4 (severe) (H [facility]) POC URINE DIPSTICK AUTO Routine 01/02/2021 Chroni c kidney disease, READ stage 4 (severe) (HCC) CARDIAC CATH REPORT Routine 12/17/2020 Nonrheumat ic mitral valve 1:[address] CARDIAC STRUCTURE WO/W Routine 12/09/2020 Exam ination of CONT 11:24 AM CDT participant in clin ical trial Nonrheumatic mitral valve regurgitation CT LMTD CHEST W CARDIAC Routine 12/09/2020 Examin ation of 11:24 AM CDT participant in clinical trial Nonrheumatic mitral valve regurgitation from Last 3 Months Results * POC GLUCOSE (01/21/2021 12:59 PM CDT) Only the most recent of 3 results within the time period is included. Glucose, POC 96 70 - 100 MG/DL MAIN LAB Specimen Performing Organization Address City/State/ZIP Code [place] Number MAIN LAB [address] [place] [address] * CARDIAC CATH REPORT (01/21/2021 12:31 PM CDT) Procedure Note Berny Storey MD - 01/21/2021 12:31 PM CDT [facility] CARDIAC CATHETERIZATION REPORT Page 1 AGUSTÍN Ferguson : 1935 #: [id number] MR #/Billing ID #: [id number] / [id number] DATE: 01/21/2021 BATTER SCALER: Berny Storey MD DICTATING PROVIDER: Berny Storey MD REFERRING PHYSICIAN: Berny Storey MD PROCEDURES PERFORMED: Right heart catheterization. PROCEDURE: Mr. Glez is an 85-year-old male with a history of severe mitral insufficiency, who is being evaluated for consideration of transcatheter mitral valve replacement. He presented for invasive right heart hemodynamics. On arrival to the mechanical laboratory technician, he was hemodynamically stable and pain free. [...] jugular vein utilizing a micropuncture needle. A 7-Icelandic venous sheath was advanced without complication. We [...] with severe mitral insufficiency. MD WILLIAN Vasquez/Yaa /[id number] cc: - Berny Storey MD Performing Organization Address City/State/ZIP Code [place] Number OTHER OUTSIDE LAB * O2HGB SAT-VENOUS POC (01/21/2021 12:25 PM CDT) Only the most recent of 2 results within the time period is included. O2HGB 66.1 55 - 71 % [facility] MAIN [facility] SAT-Venous POC Specimen Performing Organization Address City/State/ZIP Code [place] Number [facility] [address] [place] [address] * BASIC METABOLIC PANEL (01/21/2021 10:13 AM CDT) Only the most recent of 2 results within the time period is included. Sodium 136 (L) 137 - 147 MMOL/L [...] (L) >60 mL/min [facility] Comment: [place] The eGFR is not validated f or use in drug dosing adjustments. Continue to use estimated creatinine clearance per dosing reference text. Please contact the Clinical Pharmacist for questions. eGFR 42 (L) >60 mL/min [facility] MAIN LAB [place] Comment: The eGFR is not validated for use in drug dosing adjustments. Continue to use estimated creatinine clearance per dosing reference text. Please contact the Clinical Pharmacist for questions. Specimen Blood Performing Organization Address City/State/ZIP Code [place] Number MAIN LAB [address] [place] [address] * TELEMETRY STRIPS-SCAN (01/21/2021 12:00 AM CDT) Narrative Performed At This result has an attachment that is n ot available. Ordered by an unspecified provider. * PROCEDURE RECORD-SCAN (01/21/2021 12:00 AM CDT) Narrative Performed At This result has an attachment that is n ot available. Ordered by an unspecified provider. * TRANSESOPHAGEAL ECHO (01/20/2021 4:28 PM CDT) BSA 2.16 m2 OTHER OUTSIDE LAB Referring Berny Storey OTHER OUTSIDE Provider LAB CV ECHO SEE Quintanilla RN Anesthesia staff OTHER OUT SIDE RESPIRATORY THERAPY TECHNICIAN LAB Cardiology Em Epiq OTHER OUTSIDE Ultrasound LAB Machine MV mean 3 mmHg OTHER OUTSIDE gradient LAB LVOT diameter 2.2 cm OTHER OUTSIDE LAB LVOT area 3.80 cm2 OTHER OUTSIDE LAB LVOT peak VTI 15.0 cm OTHER OUTSIDE LAB Vn Nyquist 0.39 m/s OTHER OUTSIDE LAB Radius 0.9 cm OTHER OUTSIDE LAB Mr max janet 4.0 m/s OTHER OUTSIDE LAB LVOT stroke 57.02 cm3 OTHER OUTSIDE volume LAB MR SHUN EROA 0.50 cm2 OTHER OUTSIDE LAB ECHO EF 60 % OTHER OUTSIDE LAB TR PEAK 2 m/s OTHER OUTSIDE VELOCITY LAB RV SYSTOLIC 16 OTHER OUTSIDE PRESSURE LAB LVOT peak janet 0.9 m/s OTHER OUTSIDE LAB Specimen Narrative Performed At OTHER OUTSIDE LAB 3-D imaging was performed during the pr ocedure for further evaluation of cardiac structure and function. The left ventricle is normal in size and function, estimated ejection fraction is 60%. The right ventricle size and functio n appears normal Severe biatrial enlargement. Left at rial appendage is free of thrombus. Depressed appendage emptying velocity. Severe mitral annular calcification, mildly restricted anterior and posterior leaflets. Mild mitral steno sis, mean gradient 3-4 mmHg. There is severe central mitral valve regurgit ation, EROA 0.5 cm Bioprosthetic valve in aortic positi on, normal function. No paravalvular regurgitation. Stroke-volume 57 mL, cardiac output 4.5 L, cardiac index 2.11 L/m. Performing Organization Address City/State/ZIP Code [place] Number OTHER OUTSIDE LAB * ECG-SCAN (01/20/2021 12:00 AM CDT) Narrative Performed At This result has an attachment that is n ot available. Ordered by an unspecified provider. * PFT COMPLETE PULM FUNCTION (01/19/2021 10:17 AM CDT) FVC-Pre 3.62 L [facility] PFT MAIN FVC-%Pred-pre 98 % [facility] PFT MAIN FVC-Post 3.48 L [facility] PFT MAIN FVC-%Pred-Post 94 % [facility] PFT MAIN FEV1-Pre 2.89 L [facility] PFT MAIN FEV1-%Pred-Pre 107 % [facility] PFT MAIN FEV1-Post 2.97 L [facility] PFT MAIN FEV1-%Pred-Post 110 % [facility] PFT MAIN FEV1/FVC-Pre 80 % [facility] PFT MAIN [id number] 59 % [facility] PFT MAIN [id number] 2.82 L/sec [facility] PFT MAIN [id number]-%Pred-P 153 % [facility] PFT MAIN re [id number] 3.50 L/sec [facility] PFT MAIN [id number]-%Pred-P 190 % [facility] PFT MAIN ost PEF-Post [...] MAIN DLVA-#SD -0.185 ml/min/mmHg/L [facility] PFT MAIN [id number] 78 % [facility] PFT MAIN Specimen Narrative Performed At This result has an attachment that is n ot available. Performing Organization Address City/State/ZIP Code [place] Number [facility] PFT MAIN [address] [place] [address] 12 * IRON + BINDING CAPACITY + %SAT+ [...] [place] Number [facility] MAIN LAB [address] [place] [id number] * CBC (01/19/2021 9:51 AM CDT) White [...] MAIN LAB Specimen Blood Performing Organization Address City/[facility] Code [place] Number [facility] MAIN LAB [address] [place] [address] * BNP (B-TYPE NATRIURETIC PEPTI) (01/19/2021 9:51 AM CDT) B Type 125.0 (H) 0 - 100 PG/ML [facility] MAIN LAB Natriuretic Peptide Specimen Blood Performing Organization Address [facility] Code [place] Number [facility] MAIN [facility] [address] [place] [address] * MAGNESIUM (01/19/2021 9:51 AM CDT) Magnesium 2.3 1.6 - 2.6 mg/dL [facility] MAIN LAB Specimen Blood Performing Organization Address [facility] [place] Number [facility] MAIN LAB [address] [place] [id number] * HEMOGLOBIN A1C (01/19/2021 9:51 AM CDT) Hemoglobin A1C 7.5 (H) 4.0 - 6.0 % [facility] MAIN LAB Comment: The ADA recommends that most patients with type 1 and type 2 diabetes maintain an A1c level <7%. Specimen Blood Performing Organization Address [facility] [place] Number [facility] MAIN LAB [address] [place] [address] * LIPID PROFILE (01/19/2021 9:51 AM CDT) [...] 130 mg/dL. Specimen Blood Performing Organization Address City/[facility]/ZIP Code [place] Number [facility] MAIN LAB [address] [place] [address] * COMPREHENSIVE METABOLIC PANEL (01/19/2021 9:51 AM [...] (L) >60 mL/min [facility] MAIN LAB Comment: [place] The eGFR is not validated f or use in drug dosing adjustments. Continue to use estimated creatinine clearance per dosing reference text. Please contact the Clinical Pharmacist for questions. eGFR 39 (L) >60 mL/min [facility]IN [facility] [place] Comment: The eGFR is not validated for use in drug dosing adjustments. Continue to use estimated creatinine clearance per dosing reference text. Please contact the Clinical Pharmacist for questions. Specimen Blood Performing Organization Address City/State/ZIP Code [place] Number [facility] MAIN [facility] [address] [place] [address] * PV CAROTID ARTERY DUPLEX SCAN (01/19/2021 [...] ECHO PV Renny Harris RVT OTHER OUTSIDE RESPIRATORY THERAPY TECHNICIAN LAB RIGHT ICA/CCA 1.7 m/s OTHER OUTSIDE [...] [place] Number OTHER OUTSIDE LAB * ECG-SCAN (01/19/2021 12:00 AM CDT) Narrative Performed At This result has an attachment that is n ot available. Ordered by an unspecified provider. * PARATHYROID HORMONE (01/02/2021 10:38 AM CDT) PTH Hormone 132.3 (H) 10 - 65 PG/ML [facility] MAIN LAB Specimen Blood Performing Organization Address City/[facility] Code [place] Number [facility] MAIN LAB [address] [place] [address] * 25-OH VITAMIN D (D2 + D3) (01/02/2021 10:38 AM CDT) Vitamin 42.0 30 - 80 NG/ML [facility] MAIN LAB D(25-OH)Total Specimen Blood Performing Organization Address [facility] [place] Number [facility] MAIN LAB [address] [place] [address] * MICROALB/CR RATIO-URINE RANDOM (01/02/2021 9:56 AM CDT) Microalbumin, <7.0 <19 MCG/ML [facility] MAIN LAB Random Creatinine, 43 MG/DL [facility] MAIN LAB Random Specimen Urine - Urine Performing Organization Address [facility] [place] Number [facility] MAIN LAB [address] [place] [address] * POC URINE DIPSTICK AUTO READ (01/02/2021) Urine Glucose neg IN CLINIC POC Urine Bilirubin neg IN CLINIC POC Urine Ketone neg IN CLINIC POC Urine Specific 1.015 IN CLINIC [place] POC Urine Blood POC neg IN CLINIC Urine PH POC 5.0 IN CLINIC Urine Protein neg IN CLINIC POC Urine 0.2 IN CLINIC Urobilinogen POC Urine Nitrite neg IN CLINIC POC Urine TR IN CLINIC Leukocytes POC Color,UA IN CLINIC Turbidity,UA IN CLINIC Specimen Urine - Urine Performing Organization Address [facility] [place] Number IN CLINIC * CT LMTD CHEST W CARDIAC (12/09/2020 11:24 AM CDT) Specimen Impressions Performed At 1. Cardiomegaly with marked left atri al and moderate right atrial enlargement. [facility] RAD RESULTS Filling defect in a portion of the left atrial appendage may represent slow flow or a small amount of thrombus. This cou ld be further evaluated with delayed imaging or transesophageal echocardiogr aphy. 2. Marked mitral annular calcificatio n with mild calcifications in the mitral valve leaflets as described above. 3. Dilated pulmonary trunk may be see n with pulmonary hypertension. 4. Subpleural, basal reticulation com patible with interstitial lung abnormality (LISETH). These findings have been described in the asymptomatic elderly population but may also be seen in early interstitial lung disease such as usual interstitial pneumonia (UIP). Consider correlation with pulmonary function tests and patient symptoms eren t may be associated with interstitial lung disease. By my electronic signature, I attest th at I have personally reviewed the images for this examination and formulated the interpretations and opinions expressed in this report Finalized by Julián Hernandez M.D. o n 12/10/2020 10:30 AM. Dictated by Ranjit Hamilton M.D. on 12/10/2020 8:30 A M. Narrative Performed At CT CARDIAC STRUCTURE WO/W CONT, CT LMTD CHEST W CARDI AC [facility] RAD RESULTS INDICATION: Mitral regurgitation with atrial fibrillation undergoing evaluation for pulmonary vein ablation therapy. Prior interventions: Transesophageal ec hocardiogram 05/13/2020: moderately dilated right atrium; calcific thickeni ng of the mitral leaflets with mild stenosis (mean gradient 4-5 mmHg) naeem l valve annulus 2.0 sq cm by 3-D planimetry; severe mitral regurgitation ; severe left atrial dilatation; patent foramen ovale with [id number] intera trial shunt Comparison: Chest radiograph 05/11/2020 . Technique: CT of the heart and pulmonar y veins was performed with precontrast scans for localization. Dynamic contras t-enhanced scans were performed during bolus contrast administration. Multipla julianne reformations were performed. Findings: Pulmonary venous anatomy is within the spectrum of normal variation. There is a normal branching pattern without early branching (first order branch > 0.5 cm). On the right side: SPV + IPV On the left side: SPV + IPV The left atrium measures 70 mm in great est AP diameter. The heart is enlarged with marked left atrial and moderate right atrial dilatation. Trace linear focus of contr ast extending across the posteroinferior interatrial septum from the left atrium to the right atrium (series 10, images 113-115). Bioprosthetic aortic valve re placement. Mild calcification of the anterior greater than posterior mitral leaflets. Marked mitral annular calcification. Low-attenuation filling defect image image 52 series 5. Right coronary dominance. There is mild to moderate coronary artery calcification indicating coronary arter y disease, although the study was not tailored to evaluate for coronary arter y stenoses. Pericardial effusion is absent. Minimal focal calcification of the pericardium along the right cardiac border, consistent with post surgical c hanges. Ascending aorta measures 3.5 cm. Mild calcification, indicating atherosc lerosis. Multiple mildly enlarged mediastinal ly mph nodes, some of which demonstrate central internal calcification suggesti ng granulomatous disease. Minimal paraseptal emphysema. Dependent atelect asis. Cholecystectomy. Right adrenal adenoma. Thoracic spondylosis. Prior me pavan sternotomy with chronic appearing lower sternal dehiscence. Dilated pulmo nary trunk measuring 3.9 cm. Hepatic hypoattenuating lesion is not well amanda acterized. Mild peripheral reticulation and architectural distortion with some peripheral bronchiolectasis. Procedure Note Interface, Radiant Results - 12/10/2020 10:[address] CARDIAC STRUCTURE WO/W CONT, CT LMTD CHEST W CARDIAC INDICATION: Mitral regurgitation with atrial fibrillation undergoing evaluation for pulmonary vein ablation therapy. Prior interventions: Transesophageal echocardiogram 05/13/2020: moderately dilated right atrium; calcific thickening of the mitral leaflets with mild stenosis (mean gradient 4-5 mmHg) mitral valve annulus 2.0 sq cm by 3-D planimetry; severe mitral regurgitation; severe left atrial dilatation; patent foramen ovale with [id number]-[id number] interatrial shunt Comparison: Chest radiograph 05/11/2020. Technique: CT of the heart and pulmonary veins was performed with precontrast scans for localization. Dynamic contrast-enhanced scans were performed during bolus contrast administration. Multiplanar reformations were performed. Findings: Pulmonary venous anatomy is within the spectrum of normal variation. There is a normal branching pattern without early branching (first order branch > 0.5 cm). On the right side: SPV + IPV On the left side: SPV + IPV The left atrium measures 70 mm in greatest AP diameter. The heart is enlarged with marked left atrial and moderate right atrial dilatation. Trace linear focus of contrast extending across the posteroinferior interatrial septum from the left atrium to the right atrium (series 10, images 113-115). Bioprosthetic aortic valve replacement. Mild calcification of the anterior greater than posterior mitral leaflets. Marked mitral annular calcification. Low-attenuation filling defect image image 52 series 5. Right coronary dominance. There is mild to moderate coronary artery calcification indicating coronary artery disease, although the study was not tailored to evaluate for coronary artery stenoses. Pericardial effusion is absent. Minimal focal calcification of the pericardium along the right cardiac border, consistent with post surgical changes. Ascending aorta measures 3.5 cm. Mild calcification, indicating atherosclerosis. Multiple mildly enlarged mediastinal lymph nodes, some of which demonstrate central internal calcification suggesting granulomatous disease. Minimal paraseptal emphysema. Dependent atelectasis. Cholecystectomy. Right adrenal adenoma. Thoracic spondylosis. Prior median sternotomy with chronic appearing lower sternal dehiscence. Dilated pulmonary trunk measuring 3.9 cm. Hepatic hypoattenuating lesion is not well characterized. Mild peripheral reticulation and architectural distortion with some peripheral bronchiolectasis. IMPRESSION 1. Cardiomegaly with marked left atrial and moderate right atrial enlargement. Filling defect in a portion of the left atrial appendage may represent slow flow or a small amount of thrombus. This could be further evaluated with delayed imaging or transesophageal echocardiography. 2. Marked mitral annular calcification with mild calcifications in the mitral valve leaflets as described above. 3. Dilated pulmonary trunk may be seen with pulmonary hypertension. 4. Subpleural, basal reticulation joselo tible with interstitial lung abnormality (LISETH). These findings have been described in the asymptomatic elderly population but may also be seen in early interstitial lung disease such as usual interstitial pneumonia (UIP). Consider correlation with pulmonary function tests and patient symptoms that may be associated with interstitial lung disease. By my electronic signature, I attest that I have personally reviewed the images for this examination and formulated the interpretations and opinions expressed in this report Finalized by Julián Hernandez M.D. on 12/10/2020 10:30 AM. Dictated by Ranjit Hamilton M.D. on 12/10/2020 8:30 AM. Performing Organization Address City/State/ZIP Code [place] Number [facility] * CT CARDIAC STRUCTURE WO/W CONT (12/09/2020 11:24 AM CDT) Specimen Impressions Performed At 1. Cardiomegaly with marked left atri al and moderate right atrial enlargement. [facility] Filling defect in a portion of the left atrial appendage may represent slow flow or a small amount of thrombus. This cou ld be further evaluated with delayed imaging or transesophageal echocardiogr aphy. 2. Marked mitral annular calcificatio n with mild calcifications in the mitral valve leaflets as described above. 3. Dilated pulmonary trunk may be see n with pulmonary hypertension. 4. Subpleural, basal reticulation com patible with interstitial lung abnormality (LISETH). These findings have been described in the asymptomatic elderly population but may also be seen in early interstitial lung disease such as usual interstitial pneumonia (UIP). Consider correlation with pulmonary function tests and patient symptoms eren t may be associated with interstitial lung disease. By my electronic signature, I attest th at I have personally reviewed the images for this examination and formulated the interpretations and opinions expressed in this report Finalized by Julián Hernandez M.D. o n 12/10/2020 10:30 AM. Dictated by Ranjit Hamilton M.D. on 12/10/2020 8:30 A M. Narrative Performed At [facility] CARDIAC STRUCTURE WO/W CONT, CT LMTD CHEST W CARDIAC INDICATION: Mitral regurgitation with atrial fibrillation undergoing evaluation for pulmonary vein ablation therapy. Prior interventions: Transesophageal ec hocardiogram 05/13/2020: moderately dilated right atrium; calcific thickeni ng of the mitral leaflets with mild stenosis (mean gradient 4-5 mmHg) naeem l valve annulus 2.0 sq cm by 3-D planimetry; severe mitral regurgitation ; severe left atrial dilatation; patent foramen ovale with [id number] intera trial shunt Comparison: Chest radiograph 05/11/2020 . Technique: CT of the heart and pulmonar y veins was performed with precontrast scans for localization. Dynamic contras t-enhanced scans were performed during bolus contrast administration. Multipla julianne reformations were performed. Findings: Pulmonary venous anatomy is within the spectrum of normal variation. There is a normal branching pattern without early branching (first order branch > 0.5 cm). On the right side: SPV + IPV On the left side: SPV + IPV The left atrium measures 70 mm in great est AP diameter. The heart is enlarged with marked left atrial and moderate right atrial dilatation. Trace linear focus of contr ast extending across the posteroinferior interatrial septum from the left atrium to the right atrium (series 10, images 113-115). Bioprosthetic aortic valve re placement. Mild calcification of the anterior greater than posterior mitral leaflets. Marked mitral annular calcification. Low-attenuation filling defect image image 52 series 5. Right coronary dominance. There is mild to moderate coronary artery calcification indicating coronary arter y disease, although the study was not tailored to evaluate for coronary arter y stenoses. Pericardial effusion is absent. Minimal focal calcification of the pericardium along the right cardiac border, consistent with post surgical c hanges. Ascending aorta measures 3.5 cm. Mild calcification, indicating atherosc lerosis. Multiple mildly enlarged mediastinal ly mph nodes, some of which demonstrate central internal calcification suggesti ng granulomatous disease. Minimal paraseptal emphysema. Dependent atelect asis. Cholecystectomy. Right adrenal adenoma. Thoracic spondylosis. Prior me pavan sternotomy with chronic appearing lower sternal dehiscence. Dilated pulmo nary trunk measuring 3.9 cm. Hepatic hypoattenuating lesion is not well amanda acterized. Mild peripheral reticulation and architectural distortion with some peripheral bronchiolectasis. Procedure Note Interface, [facility] Results - 12/10/2020 10:[address] CARDIAC STRUCTURE WO/W CONT, CT LMTD CHEST W CARDIAC INDICATION: Mitral regurgitation with atrial fibrillation undergoing evaluation for pulmonary vein ablation therapy. Prior interventions: Transesophageal echocardiogram 05/13/2020: moderately dilated right atrium; calcific thickening of the mitral leaflets with mild stenosis (mean gradient 4-5 mmHg) mitral valve annulus 2.0 sq cm by 3-D planimetry; severe mitral regurgitation; severe left atrial dilatation; patent foramen ovale with [id number] interatrial shunt Comparison: Chest radiograph 05/11/2020. Technique: CT of the heart and pulmonary veins was performed with precontrast scans for localization. Dynamic contrast-enhanced scans were performed during bolus contrast administration. Multiplanar reformations were performed. Findings: Pulmonary venous anatomy is within the spectrum of normal variation. There is a normal branching pattern without early branching (first order branch > 0.5 cm). On the right side: SPV + IPV On the left side: SPV + IPV The left atrium measures 70 mm in greatest AP diameter. The heart is enlarged with marked left atrial and moderate right atrial dilatation. Trace linear focus of contrast extending across the posteroinferior interatrial septum from the left atrium to the right atrium (series 10, images 113-115). Bioprosthetic aortic valve replacement. Mild calcification of the anterior greater than posterior mitral leaflets. Marked mitral annular calcification. Low-attenuation filling defect image image 52 series 5. Right coronary dominance. There is mild to moderate coronary artery calcification indicating coronary artery disease, although the study was not tailored to evaluate for coronary artery stenoses. Pericardial effusion is absent. Minimal focal calcification of the pericardium along the right cardiac border, consistent with post surgical changes. Ascending aorta measures 3.5 cm. Mild calcification, indicating atherosclerosis. Multiple mildly enlarged mediastinal lymph nodes, some of which demonstrate central internal calcification suggesting granulomatous disease. Minimal paraseptal emphysema. Dependent atelectasis. Cholecystectomy. Right adrenal adenoma. Thoracic spondylosis. Prior median sternotomy with chronic appearing lower sternal dehiscence. Dilated pulmonary trunk measuring 3.9 cm. Hepatic hypoattenuating lesion is not well characterized. Mild peripheral reticulation and architectural distortion with some peripheral bronchiolectasis. IMPRESSION 1. Cardiomegaly with marked left atrial and moderate right atrial enlargement. Filling defect in a portion of the left atrial appendage may represent slow flow or a small amount of thrombus. This could be further evaluated with delayed imaging or transesophageal echocardiography. 2. Marked mitral annular calcification with mild calcifications in the mitral valve leaflets as described above. 3. Dilated pulmonary trunk may be seen with pulmonary hypertension. 4. Subpleural, basal reticulation joselo tible with interstitial lung abnormality (LISETH). These findings have been described in the asymptomatic elderly population but may also be seen in early interstitial lung disease such as usual interstitial pneumonia (UIP). Consider correlation with pulmonary function tests and patient symptoms that may be associated with interstitial lung disease. By my electronic signature, I attest that I have personally reviewed the images for this examination and formulated the interpretations and opinions expressed in this report Finalized by Julián Hernandez M.D. on 12/10/2020 10:30 AM. Dictated by Ranjit [place] M.D. on 12/10/2020 8:30 AM. Performing Organization Address City/State/ZIP Code [place] [facility] from Last 3 Months Insurance Type Payer Benefit Subscriber ID Effective Phone Address Plan / Dates Group Medicare MEDICARE MEDICARE [id number] 2000- PART A AND Present B NATIONAL ASSN LETTER 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 necessary based on Dx 05/18/2020 1:42 PM DNAR-Full 05/17/2020 2:52 PM Intervention Provider has discussed Code Status Yes w/Patient or Family? Does the patient want any intervention Yes for a pre-arrest emergency which would necessitate transfer to an ICU setting? Respiratory emergency: does the patient No want to have intubation with mechanical ventilation? Symptomatic/hypotensive dysrhythmia with Not discuss ed a pulse: does the patient want cardioversion? Hypotension: does the patient want the Yes use of vasopressors if needed for blood pressure? Respiratory emergency: does the patient Yes want to have a trial of non-invasive positive pressure ventilation (NIPPV/BiPAP)? If all questions were answered "No", Instruction DNAR-FI is not the correct resuscitation Acknowledge d status order, please refer to reference links below to help you determine the correct order: 05/17/2020 2:52 PM Full Code 05/16/2020 8:45 AM Provider has discussed Code Status Yes w/Patient or Family? 05/16/2020 8:45 AM DNAR-Full 05/05/2020 5:58 PM Intervention Provider has discussed Code Status Yes w/Patient or Family? Does the patient want any intervention Yes for a pre-arrest emergency which would necessitate transfer to an ICU setting? Respiratory emergency: does the patient No want to have intubation with mechanical ventilation? Symptomatic/hypotensive dysrhythmia with Yes a pulse: does the patient want cardioversion? Hypotension: does the patient want the Yes use of vasopressors if needed for blood pressure? Respiratory emergency: does the patient Yes want to have a trial of non-invasive positive pressure ventilation (NIPPV/BiPAP)?
--- OUTSIDE RECORDS SUMMARY | 2021-03-11 21:36 | XMS REPORT | Encounter Summary ---
Author Author [facility] Organization [facility] Address Unknown Phone Unavailable Care Team Providers Care [employer] Advisor Name Role Phone Rosario Barrientos MD PCP Dion Parikh MD Unavailable Yury Darden MD Unavailable Danika Borjas MD [facility] Encounter Details Care Team Description Date Type Department 01/20/2021 Travel Social History Date Tobacco Use Types Packs/Day Years Used Quit: 1986 Former Smoker Smokeless Tobacco: Never Used Comments Alcohol Use Standard Drinks/Week 7 cans per year Yes 1 (1 standard drink = 0.6 o z pure alcohol) Sex Assigned at Date Recorded Male 04/30/2020 1:30 PM CDT Date Recorded COVID-19 Exposure Response 01/20/2021 7:16 AM CDT In the last month, have [...] Aut hor Goal Type Problems ed? 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
--- OUTSIDE RECORDS SUMMARY | 2021-03-11 21:36 | XMS REPORT | Encounter Summary ---
Author Author [facility] Organization [facility] Address Unknown Phone Unavailable Care Team Providers Care Medical Claims Assistant Name Role Phone Rosario Barrientos MD PCP Dion Parikh MD Unavailable Yury Darden MD Unavailable Danika Borjas MD Unavailable [facility] 3 Reason for Referral * Test (Routine) Referred By Contact Referred To Contact Status Reason Specialty Diagnoses / Procedures Berny Storey MD [address] [place] [address] [facility] [address] [address] Authorized Cardiology Diagnoses Nonrheumatic mitral valve regurgitation P rocedures TRANSESOPHAGEAL ECHO HI ECHO TRANSESOPHAG R-T 2D W/PRB IMG ACQUISJ I&R HI DOP ECHOCARD COLOR FLOW VELOCITY MAPPING Electronically signed by Berny Storey MD at Reason for Visit * Test (Routine) Referred By Contact Referred To Contact Status Reason Specialty Diagnoses / Procedures Berny Storey MD [address] [place] [id number] [facility] [address] [address] Authorized Cardiology Diagnoses Nonrheumatic mitral valve regurgitation P rocedures TRANSESOPHAGEAL ECHO HI ECHO TRANSESOPHAG R-T 2D W/PRB IMG ACQUISJ I&R HI DOP ECHOCARD COLOR FLOW VELOCITY MAPPING Encounter Details Care Team Description Date Type Department Berny Storey MD 4000 [facility] [id number] [place] [address] [phone] David Candelario MD [id number] [place], [place] [id number] Canceled (Patient-Unable to perform exam ) 01/20/2021 Hospital Cardiology:Center f or Encounter [facility] 4000 [facility] [address] [place] [address] Social History Date Tobacco Use [...] Signs Reading Time Taken Comments Vital Sign 126/82 01/20/2021 4:35 PM CDT Blood Pressure 85 01/20/2021 4:35 PM CDT Pulse - - Temperature - - Respiratory Rate 96% 01/20/2021 4:35 PM CDT Oxygen Saturation - - Inhaled Oxygen Concentration 94.3 kg (208 lb) 01/20/2021 4:29 PM CDT Weight 177.8 cm (5' 10") 01/20/2021 4:29 PM CDT Height 29.84 01/20/2021 4:29 PM CDT Body Mass Index documented in this [...] impairment: No documented as of this encounter Discharge Instructions * Patient Instructions* Socorro Calhoun RN - 01/20/2021 8:00 AM CDT CARDIOLOGY PROCEDURES POST SEDATION INSTRUCTIONS Patient Name: Igor Glez Jr. Date: 01/20/2021 Please follow the instructions listed below: The following day you may experience a minor sore throat. Please have someone accompany you, as YOU SHOULD NOT drive or operate machinery for at least 12-24 hours following the procedure. There may be some residual effects from the sedatives during the procedure. Do not drive a vehicle for up to 24 hours after receiving sedation. Do not operate heavy or potentially harmful equipment Do not make legally binding decisions Do not drink alcohol for up to 24 hours Do not communicate through social media for 24 hours. . If you have question or concerns about this procedure, please contact the Card iology office at , and ask to speak to one of the nurses. Current Medications List: dilTIAZem CD (CARDIZEM CD) 120 mg capsule Take 120 mg by mouth daily. furosemide (LASIX) 40 mg tablet Take one tablet by mouth daily. JANUVIA 50 mg Take 1 tablet by mouth daily. nebivoloL (BYSTOLIC) 10 [...] 1 TABLET(S) ORAL EVERY NIGHT AT BEDTIME Instructions Given To: patient and Instructions Given By: Socorro Calhoun RN documented in this encounter Medications at Time of Discharge [...] documented in this encounter Progress Notes * Socorro Calhoun RN - 01/20/2021 8:00 AM CDT Pre-Operative Assessment for TESS or Cardioversion Date of Service: 01/20/2021 Igor Glez Jr. is a 85 y.o. y.o. male. With significant valvular card iomyopathy, mitral valve regurg/stenosis, a fib on chronic anticoagulation, s/p AVR, HTN, DM, CKD, COPD and GI bleed ..., who is referred for TESS Indication: Ap ollo trial . he has been compliant with his rivaroxaban (Xarelto) Missed dose: Yes, patient told to hold for cath procedure and ... bleeding. he is Positive for: GERD, Loos e/False teeth, Hx. Head/Neck surgery/radiation, Hx. Chest surgery/radiation and Hx. GI Bleeding and Positive for: COPD / Asthma. 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 Cancer of skin CKD (chronic kidney disease) Diabetes mellitus (HCC) Hearing reduced Hypertension Mitral regurgitation Obesity PAF (paroxysmal atrial fibrillation) (HCC) Surgical History: Surgical History: Procedure Laterality Date AORTIC VALVE REPLACEMENT 2008 Bovine PERINEAL URETHROSTOMY N/A 01/27/2018 Performed by Chepe Chandler MD at [facility] OR COLONOSCOPY HX APPENDECTOMY HX CHOLECYSTECTOMY HX HEART CATHETERIZATION Social History Social History Tobacco Use Smoking status: Former Smoker Quit date: 1986 Years since quittin.5 Smokeless tobacco: Never Used Substance Use Topics Alcohol use: Yes Alcohol/week: 1.0 standard drinks Types: 1 Cans of beer per week Comment: 7 cans per year Drug use: No Allergies No Known Allergies Current Medications Current Outpatient Medications on File Prior to Encounter Medication Sig Dispense Refill dilTIAZem CD (CARDIZEM CD) 120 mg capsule Take 120 mg by mouth daily. furosemide (LASIX) 40 mg tablet Take one tablet by mouth daily. 30 tablet 1 JANUVIA 50 mg Take 1 tablet by mouth daily. nebivoloL (BYSTOLIC) 10 mg tablet Take 1 tab at 8pm the night before the boni t and 1 tab at 8am the morning of the test. Indications: pre-procedure [address] (PROTONIX) 40 mg tablet Take one tablet by mouth twice daily . (Patient taking differently: Take 40 mg by mouth daily.) 60 tablet 1 potassium chloride SR (K-DUR) 20 mEq tablet Take two tablets by mouth daily. (Patient taking differently: Take 20 mEq by mouth daily.) 60 tablet 1 pravastatin (PRAVACHOL) 10 mg tablet Take 10 mg by mouth at bedtime daily. rivaroxaban (XARELTO) 15 mg tablet Take 15 mg by mouth daily. Take with food . spironolactone (ALDACTONE) 25 mg tablet Take one-half tablet by mouth daily. Take with food. 15 tablet 1 tamsulosin (FLOMAX) 0.4 mg capsule Take 0.4 mg by mouth daily. zolpidem CR (AMBIEN CR) 6.25 mg tablet TAKE 1 TABLET(S) ORAL EVERY NIGHT AT BEDTIME No current facility-administered medications on file prior to encounter. Vitals Estimated body mass index is 29.86 kg/m as calculated from the following: Height as of this encounter: 1.778 m (5' 10"). Weight as of this encounter: 94.4 kg (208 lb 1.8 oz). Patient appears alert and oriented: Yes NPO: for greater than 8 hours Inpatient IV status: rfa 22 Diagnostic Tests White Blood Cells Date Value Ref Range Status 01/19/2021 6.9 4.5 - 11.0 K/UL Final Hemoglobin Date Value Ref Range Status 01/19/2021 12.9 (L) 13.5 - 16.5 GM/DL Final Hematocrit Date Value Ref Range Status 01/19/2021 39.2 (L) 40 - 50 % Final Platelet Count Date Value Ref Range Status 01/19/2021 169 150 - 400 K/UL Final Sodium Date Value Ref Range Status 01/19/2021 136 (L) 137 - 147 MMOL/L Final Potassium Date Value Ref Range Status 01/19/2021 4.8 3.5 - 5.1 MMOL/L Final Magnesium Date Value Ref Range Status 01/19/2021 2.3 1.6 - 2.6 mg/dL Final Blood Urea Nitrogen Date Value Ref Range Status 01/19/2021 22 7 - 25 MG/DL Final Creatinine Date Value Ref Range Status 01/19/2021 2.00 (H) 0.4 - 1.24 MG/DL Final Glucose Date Value Ref Range Status 01/19/2021 141 (H) 70 - 100 MG/DL Final Last MAC INR Flow Sheet Entry: Last recorded Lab results: No results found for: INR APTT Date Value Ref Range Status 05/16/2020 113.3 (H) 24.0 - 36.5 SEC Final Blood Cultures Resulted Micro Last 72 Hrs No results found Last TESS date: 05/03/2020 Last Cardioversion date: None Echo procedures within the past 30 days: No results found. Device Information on File No results found for: GENERATOR, EPDEVTYP Additional Comments: None Plan: Dr. Cobos will plan to proceed with the TESS. * Socorro Calhoun RN - 01/20/2021 8:00 AM CDT Care Plan Care Category & Patient Outcome Goal Met Treatment/ Interventions Plan of the Day RN Name Cardiovascular Hemodynamic stability and adequate peripheral perfusion. Yes Refer to patient's chart. Monitor VS per sedation standard. Monitor ECG continu ously. Assess/maintain IV patency. Socorro Calhoun RN Respiratory Patent airway, ease of respiration, and adequate oxygenation. Yes Refer to patient's chart. Maintain open airway. Assess respirations. Monitor O2 saturations. Titrate O2 to keep sat>= 95% or baseline. Socorro Calhoun RN Psychological/Emotional/Spiritual [place] with procedure with support in place. Spiritual needs are addressed. Yes Refer to patient's chart. Provide adequate and thorough instructions. Provide a caring and supportive environment. Communicate patients concerns with othe r members of the health team. Socorro Calhoun RN Pain Patients pain goal met. Yes Refer to patient's chart. Prepare patient for potentially uncomfortable procedu re. Observe for verbal/nonverbal complaints of pain. Assess pain. Provide com fort measures. Socorro Calhoun RN Safety/Fall Risk Free from injury, security maintained. Yes High Risk Refer to patient's chart. Follow nursing standard of practice for high risks fall patients. Socorro Calhoun RN Knowledge Base Verbalize understanding of procedure/information provided. Yes Refer to patient's chart. Describe the procedure along with what symptoms to ex pect. Evaluate patients understanding of procedure. Encourage patient to as k questions. Provide additional information as needed. Socorro Calhoun RN * Alee Reveles RN - 01/20/2021 8:00 AM CDT Patient arrived for tess, per his patient had 1/4 to 1/2 donut this am 0530- 0600 . Will reschedule tess to 8 hours from ingestion of donut. Again instruction s given not to eat or drink anything. Family verbalized understanding. * Alee Reveles RN - 01/20/2021 8:00 AM CDT Care Plan Care Category & Patient Outcome Goal Met Treatment/ Interventions Plan of the Day RN Name Cardiovascular Hemodynamic stability and adequate peripheral perfusion. Yes Refer to patient's chart. Monitor VS per sedation standard. Monitor ECG continu ously. Assess/maintain IV patency. Alee Reveles RN Respiratory Patent airway, ease of respiration, and adequate oxygenation. Yes Refer to patient's chart. Maintain open airway. Assess respirations. Monitor O2 saturations. Titrate O2 to keep sat>= 95% or baseline. Alee Reveles RN Psychological/Emotional/Spiritual [place] with procedure with support in place. Spiritual needs are addressed. Yes Refer to patient's chart. Provide adequate and thorough instructions. Provide a caring and supportive environment. Communicate patients concerns with othe r members of the health team. Alee Reveles RN Pain Patients pain goal met. Yes Refer to patient's chart. Prepare patient for potentially uncomfortable procedu re. Observe for verbal/nonverbal complaints of pain. Assess pain. Provide com fort measures. Alee Reveles RN Safety/Fall Risk Free from injury, security maintained. Yes High Risk Refer to patient's chart. Follow nursing standard of practice for high risks fall patients. Alee Reveles RN Knowledge Base Verbalize understanding of procedure/information provided. Yes Refer to patient's chart. Describe the procedure along with what symptoms to ex pect. Evaluate patients understanding of procedure. Encourage patient to as k questions. Provide additional information as needed. Alee Reveles RN documented in this encounter Plan of Treatment Not on filedocumented as of this encounter Goals Goal Patient Associated Recent Progress Patient-Stat Aut hor Goal Type Problems ed? [facility] No Kaden Ott RN documented as of this encounter Procedures Comments Procedure Name Priority Date/Time Associated Diag nosis TESS W/O CONTRAST & W/ 3D Routine 01/20/2021 Nonrh eumatic mitral valve ON CART 4:28 PM CDT regurgitation POC GLUCOSE 01/20/2021 2:58 PM CDT ECG-SCAN 01/20/2021 12:00 AM CDT documented in this encounter Results * TRANSESOPHAGEAL ECHO (01/20/2021 4:28 PM CDT) BSA 2.16 m2 OTHER OUTSIDE LAB Referring Berny Jeannette [place] OTHER OUTSIDE Provider LAB CV ECHO SEE Quintanilla RN Anesthesia staff OTHER OUT SIDE MANAGER TRANSFER LAB Cardiology Em Epiq OTHER OUTSIDE Ultrasound LAB Machine MV mean 3 mmHg OTHER OUTSIDE gradient LAB LVOT diameter 2.2 cm OTHER OUTSIDE LAB LVOT area 3.80 cm2 OTHER OUTSIDE LAB LVOT peak VTI 15.0 cm OTHER OUTSIDE LAB Vn Nyquist 0.39 m/s OTHER OUTSIDE LAB Radius 0.9 cm OTHER OUTSIDE LAB Mr max jnaet 4.0 m/s OTHER OUTSIDE LAB LVOT stroke 57.02 cm3 OTHER OUTSIDE volume LAB MR PISA EROA 0.50 cm2 OTHER OUTSIDE LAB ECHO [...] [place] Number OTHER OUTSIDE LAB * POC GLUCOSE (01/20/2021 2:58 PM CDT) Glucose, POC 118 (H) 70 - 100 MG/DL [facility] Specimen Performing Organization Address City/State/ZIP Code [place] Number [facility] [address] [place] [address] * ECG-SCAN (01/20/2021 12:00 AM CDT) Narrative Performed At This result has an attachment that is n ot available. Ordered by an unspecified provider. 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
== END 2021-03-11 18:55 | disposition home or self-care (01) ==
LOC: EDUNIT# 15:44 → ER 15:47
DX: J40 Bronchitis, not specified as acute or chronic (principal); K21.9 Gastro-esophageal reflux disease without esophagitis; E78.00 Pure hypercholesterolemia, unspecified; N40.0 Benign prostatic hyperplasia without lower urinary tract symptoms; I48.91 Unspecified atrial fibrillation; E11.9 Type 2 diabetes mellitus without complications; Z20.822 Contact with and (suspected) exposure to COVID-19; Z79.899 Other long term (current) drug therapy; Z79.01 Long term (current) use of anticoagulants
CPT/HCPCS: 71045; 87636

== ENCOUNTER → 2021-09-25 | Outpatient (CLI) | payer MEDICARE, OTHER ==
[~2021-09-25] MED LIST changes: +CEFU250T80 PO; +CHOL10004 PO; -CHOL100045 PO; -POTA10TA36 PO; +POTA10TA37 PO; +PRD20T PO
== END ==
LOC: CARD 11:00
PROVIDERS: ATTEND Internal Medicine Cardiovascular Disease
DX: I08.3 Combined rheumatic disorders of mitral, aortic and tricuspid valves (principal); I11.9 Hypertensive heart disease without heart failure
CPT/HCPCS: 93306

== ENCOUNTER 2022-01-04 11:11 | Outpatient (RCR) | payer MEDICARE, OTHER ==
[2021-12-28 11:00] VITALS: BP 121/74
[2021-12-28] MEDS: FERRIC CARBOXYMALTOSE INJ 750 MG in NS (IVPB) 250 ML IV SCH (11:53)
[~2022-01-04] VITALS: Ht 177.8 cm; Wt 94.0 kg
[2022-01-04 11:10] VITALS: BP 135/80
[2022-01-04] MEDS: FERRIC CARBOXYMALTOSE INJ 750 MG in NS (IVPB) 250 ML IV SCH (12:00)
== END 2022-01-04 12:25 | disposition home or self-care (01) ==
LOC: SDC 11:11
PROVIDERS: ATTEND Family Medicine
DX: D50.9 Iron deficiency anemia, unspecified (principal)
CPT/HCPCS: 96365

== ENCOUNTER 2022-04-08 12:15 | Inpatient (IN) | payer MEDICARE, OTHER ==
[~2022-04-08] VITALS: Ht 177.8 cm; Wt 93.7 kg
[~2022-04-08 12:15] MED LIST changes: +POTA-177 PO; -POTA10TA37 PO
[2022-04-08] MEDS ORDERED: PANTOPRAZOLE 40 MG (PROTONIX) VIAL IV ONE (12:45)
[2022-04-08] MEDS ORDERED: ONDANSETRON 4 MG/2 ML (SDV) Z0FRAN IVP ONE (12:45)
[2022-04-08] MEDS ORDERED: PANTOPRAZOLE INJECTION 200 MG in NS (IVPB) 100 ML IV SCH (12:45)
--- NOTE | 2022-04-08 12:49 | ED GI ---
General Chief Complaint: Abdominal/GI Problems Stated Complaint: POSSIBLE GI BLEED Source of Information: Patient Exam Limitations: No Limitations History of Present Illness Date Seen by Provider: Apr 08, 2022 Time Seen by Provider: 12:36 Initial Comments Here with report of vomiting coffee-ground emesis today. Started having some st omach upset yesterday after eating at [employer]. He did have some Zofran yesterday and did not have much relief. Called his doctor's office today who had prescription sent out for him. They called the doctor's office back after noting the dark coffee-ground emesis and she encouraged him to come to the emergency department which she has done. He denies any significant pain but does have some nausea. He is hiccuping. He is on Coumadin for A. fib and valve repair. He has had lower GI bleed previously. Denies fever chills or other concerns currently. Timing/Duration: 12-24 Hours Severity/Quality: Moderate Location: Epigastric Radiation: No Radiation Associated Symptoms: No Back Pain, No Chest Pain, No Fever/Chills; Nausea/Vomiting Allergies and Home Medications Allergies Coded Allergies: No Known Drug Allergies (Unverified , 05/27/20) Patient Home Medication List Home Medication List Reviewed: Yes Apixaban (Eliquis) 5 Mg Tablet, 5 MG PO BID, (Reported) Entered as Reported by: VERONICA JOHNSON on 04/16/20 1355 Cefuroxime Axetil (Cefuroxime) 250 Mg Tablet, 250 MG PO BID Prescribed by: TONY MELVIN on 03/11/21 181 Cholecalciferol (Vitamin D3) (Vitamin D3) 25 Mcg Tablet, 25 MCG PO DAILY, (Reported) Entered as Reported by: VERONICA JOHNSON on 04/16/20 1355 Diltiazem HCl (Diltiazem 24Hr ER) 120 Mg Cap.er.24h, 120 MG PO DAILY, (Reported) Entered as Reported by: VERNOICA JOHNSON on 04/16/20 1355 Lactobac Cmb #3/Fos/Pantethine (Probiotic & Acidophilus Cap) 1 Each Capsule, 1 EACH PO HS, (Reported) Entered as Reported by: VERONICA JOHNSON on 01/14/20 1508 Mirabegron (Myrbetriq) 50 Mg Tab.er.24h, 50 MG PO HS, (Reported) Entered as Reported by: VERONICA JOHNSON on 04/16/20 1355 Multivitamin (Multivitamin) 1 Each Tablet, 1 EACH PO DAILY, (Reported) Entered as Reported by: VERONICA JOHNSON on 04/16/20 1355 Pantoprazole Sodium (Pantoprazole Sodium) 40 Mg Tablet.dr, 40 MG PO BID Prescribed by: NATHANIEL BARRIENTOS on 04/19/20 1008 Pioglitazone HCl (Actos) 45 Mg Tablet, 45 MG PO DAILY, (Reported) Entered as Reported by: MIKE MORALES on 02/13/20 1413 Pravastatin Sodium (Pravastatin Sodium) 10 Mg Tablet, 10 MG PO HS, (Reported) Entered as Reported by: MIKE MORALES on 02/13/20 1413 Prednisone (Prednisone) 20 Mg Tab, 40 MG PO DAILY Prescribed by: TONY MELVIN on 03/11/21 1811 Tamsulosin HCl (Flomax) 0.4 Mg Cap, 0.4 MG PO HS, (Reported) Entered as Reported by: VERONICA JOHNSON on 01/14/20 1506 Zolpidem Tartrate (Ambien Cr) 6.25 Mg Tab.mphase, 6.25 MG PO HS, (Reported) Entered as Reported by: VERONICA JOHNSON on 04/16/20 1355 Review of Systems Review of Systems Constitutional: see HPI; No chills, No fever EENTM: No Nose Congestion, No Throat Pain Respiratory: Denies Cough, Denies Shortness of Air, Denies SOA at Rest Cardiovascular: Denies Chest Pain, Denies Edema Gastrointestinal: See HPI, Nausea, Vomiting Genitourinary: No Symptoms Reported Musculoskeletal: no symptoms reported Skin: no symptoms reported All Other Systems Reviewed Negative Unless Noted: Yes Past Pqhlsty-Rcecfb-Xyirkv Hx Patient Social History Tobacco Use?: No Substance use?: No Alcohol Use?: No Pt feels they are or have been: No Immunizations Up To Date Tetanus Booster (TDap): Unknown PED Vaccines UTD: No First/Initial COVID19 Vaccinat: 08/14 Second COVID19 Vaccination Mason: 09/14 Third COVID19 Vaccination Date: YES Seasonal Allergies Seasonal Allergies: No Past Medical History Surgery/Hospitalization HX: URINARY RETENTION, CHF, HTN KNEE, AORTIC VALVE REPLACEMENT, HEART CLIP, URETER BYPASS Surgeries: Yes (TKR) Appendectomy, Joint Replacement, Orthopedic, Valve Replacement Respiratory: No Pneumonia Currently Using CPAP: No Currently Using BIPAP: No Cardiac: Yes Atrial Fibrillation, High Cholesterol, Valvular Heart Disease Neurological: Yes ( STATES CONFUSED AT TIMES) Dementia Reproductive Disorders: No Sexually Transmitted Disease: No HIV/AIDS: No Genitourinary: Yes Benign Prostatic Hyperpl, Prostate Problems Gastrointestinal: Yes Gastroesophageal Reflux Musculoskeletal: Yes Arthritis Endocrine: Yes Diabetes, 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) Hearing Impairment: Hard of Hearing, Bilateral Hearing Aide Cancer: Yes Skin Did You Recieve Any Treatments: Yes What Type of Treatment Did You: Surgical Intervention Psychosocial: No Integumentary: No Blood Disorders: No Adverse Reaction/Blood Tranf: No (HAS HAD BLOOD WITH NO REACTION) Family Medical History Reviewed Nursing Family Hx Alcoholism G8 BROTHER Arthritis 19 MOTHER Completed stroke 19 FATHER Diabetes mellitus 19 MOTHER Hypertension 19 FATHER 19 MOTHER Myocardial infarction G8 SISTER Heart Disease, Hypertension, Stroke Physical Exam Vital Signs Vital Signs - First Documented 04/08/22 12:20 Temp 36.4 Pulse 93 Resp 20 B/P (MAP) 124/67 (86) Capillary Refill : Height/Weight/BMI Height: '" Weight: lbs. oz. kg; 28.72 BMI Method: General Appearance: WD/WN, no apparent distress HEENT: PERRL/EOMI, pharynx normal Neck: full range of motion, supple Respiratory: lungs clear, normal breath sounds Cardiovascular: no murmur, irregularly irregular Gastrointestinal: normal bowel sounds, non tender, soft Extremities: non-tender, normal inspection Back: normal inspection, no CVA tenderness, no vertebral tenderness Neurologic/Psychiatric: alert, oriented x 3 Skin: normal color, warm/dry Progress/Results/Core Measures Results/Orders Lab Results Laboratory Tests Test 04/08/22 12:29 Range/Units White Blood Count 19.4 H 4.3-11.0 10^3/uL Red Blood Count 4.61 4.30-5.52 10^6/uL Hemoglobin 13.6 13.3-17.7 g/dL Hematocrit 42 40-54 % Mean Corpuscular Volume 90 80-99 fL Mean Corpuscular Hemoglobin 30 25-34 pg Mean Corpuscular Hemoglobin Concent 33 32-36 g/dL Red Cell Distribution Width 17.2 H 10.0-14.5 % Platelet Count 165 130-400 10^3/uL Mean Platelet Volume 10.6 9.0-12.2 fL Immature Granulocyte % (Auto) 1 % Neutrophils (%) (Auto) 92 H 42-75 % Lymphocytes (%) (Auto) 3 L 12-44 % Monocytes (%) (Auto) 5 0-12 % Eosinophils (%) (Auto) 0 0-10 % Basophils (%) (Auto) 0 0-10 % Neutrophils # (Auto) 17.7 H 1.8-7.8 10^3/uL Lymphocytes # (Auto) 0.5 L 1.0-4.0 10^3/uL Monocytes # (Auto) 1.0 0.0-1.0 10^3/uL Eosinophils # (Auto) 0.0 0.0-0.3 10^3/uL Basophils # (Auto) 0.0 0.0-0.1 10^3/uL Immature Granulocyte # (Auto) 0.1 0.0-0.1 10^3/uL Neutrophils % (Manual) 93 % Lymphocytes % (Manual) 3 % Monocytes % (Manual) 4 % Eosinophils % (Manual) 0 % Basophils % (Manual) 0 % Band Neutrophils 0 % Blood Morphology Comment NORMAL Prothrombin Time 32.3 H 12.2-14.7 SEC INR Comment 3.1 H 0.8-1.4 Gastric Fluid Occult Blood POSITIVE H NEGATIVE Sodium Level 140 135-145 MMOL/L Potassium Level 4.5 3.6-5.0 MMOL/L Chloride Level 101 98-107 MMOL/L Carbon Dioxide Level 21 21-32 MMOL/L Anion Gap 18 H 5-14 MMOL/L Blood Urea Nitrogen 33 H 7-18 MG/DL Creatinine 1.83 H 0.60-1.30 MG/DL Estimat Glomerular Filtration Rate 35 BUN/Creatinine Ratio 18 Glucose Level 233 H 70-105 MG/DL Calcium Level 9.2 8.5-10.1 MG/DL Corrected Calcium 9.4 8.5-10.1 MG/DL Total Bilirubin 1.0 0.1-1.0 MG/DL Aspartate Amino Transf (AST/SGOT) 16 5-34 U/L Alanine Aminotransferase (ALT/SGPT) 11 0-55 U/L Alkaline Phosphatase 89 40-136 U/L Total Protein 6.6 6.4-8.2 GM/DL Albumin 3.7 3.2-4.5 GM/DL My Orders Orders - SAHIL CRUZ MD Cbc With Automated Diff (04/08/22 12:41) Comprehensive Metabolic Panel (04/08/22 12:41) Type And Screen (04/08/22 12:41) Ed Iv/Invasive Line Start (04/08/22 12:41) Monitor-Rhythm Ecg Trace Only (04/08/22 12:41) Ondansetron Injection (Zofran Injectio (04/08/22 12:45) Ed Iv/Invasive Line Start (04/08/22 12:41) Protime With Inr (04/08/22 12:41) Occult Blood,Gastric Fluid (04/08/22 12:41) Ns (Ivpb) (Sodium C... W/Pantoprazole In (04/08/22 12:45) Pantoprazole Injection (Protonix Injecti (04/08/22 12:45) Manual Differential (04/08/22 12:29) Medications Given in ED Current Medications Medications Dose Ordered Sig/Mary Kate Route Start Time Stop Time Status Last Admin Dose Admin Ondansetron HCl 4 mg ONCE ONCE IVP 04/08/22 12:45 04/08/22 12:46 DC 04/08/22 13:21 4 MG Pantoprazole 80 mg ONCE ONCE IV 04/08/22 12:45 04/08/22 12:46 DC 04/08/22 13:21 80 MG Vital Signs/I&O 04/08/22 12:20 Temp 36.4 Pulse 93 Resp 20 B/P (MAP) 124/67 (86) Progress Progress Note : Progress Note Seen and evaluated. IV, labs, Gastroccult fluid, Protonix 80 mg IV and 8 mg/h drip ordered. Monitor patient. 1350: I did discuss the case with Dr. Caba who will happily see the patient in consult. I will make contact with Dr. BARRIENTOS for admission. Monitor patient. 1358: I did discuss the case with Dr. Barrientos. She accepts patient for admission, inpatient status. Family will discuss how aggressive to be with therapy. Patient excepts admission unknown is okay with further discussion. Patient is DNR. Departure Communication (Admissions) Time/Spoke to Admitting Phy: 13:50 Impression Primary Impression: Upper GI bleed Disposition: 09 ADMITTED INPATIENT Condition: Stable Admissions Decision to Admit Reason: Admit from ER (General) Decision to Admit/Date: Apr 08, 2022 Time/Decision to Admit Time: 13:50 Departure-Patient Inst. Referrals: NATHANIEL BARRIENTOS MD (PCP/Family) Primary Care Physician SAHIL CRUZ MD Apr 08, 2022 12:47
[2022-04-08 12:50] LABS: BASOPHILS % (AUTO) 0 % (0-10); EOSINOPHILS % (AUTO) 0 % (0-10); HEMATOCRIT 42 % (40-54); HEMOGLOBIN 13.6 g/dL (13.3-17.7); LYMPHOCYTES # (AUTO) 0.5 10^3/uL (1.0-4.0); LYMPHOCYTES % (AUTO) 3 % (12-44); MEAN CORPUSCULAR HEMOGLOBIN 30 pg (25-34); MEAN CORPUSCULAR HGB CONC 33 g/dL (32-36); MEAN CORPUSCULAR VOLUME 90 fL (80-99); MEAN PLATELET VOLUME 10.6 fL (9.0-12.2); MONOCYTES % (AUTO) 5 % (0-12); NEUTROPHILS # (AUTO) 17.7 10^3/uL (1.8-7.8); NEUTROPHILS % (AUTO) 92 % (42-75); PLATELET COUNT 165 10^3/uL (130-400); WHITE BLOOD COUNT 19.4 10^3/uL (4.3-11.0)
[2022-04-08 12:53] LABS: ALBUMIN 3.7 GM/DL (3.2-4.5)
[2022-04-08 12:54] LABS: POTASSIUM 4.5 MMOL/L (3.6-5.0)
[2022-04-08 12:55] LABS: CALCIUM 9.2 MG/DL (8.5-10.1)
[2022-04-08 12:56] LABS: TOTAL PROTEIN 6.6 GM/DL (6.4-8.2)
[2022-04-08 13:00] LABS: CREATININE SERUM 1.83 MG/DL (0.60-1.30); INR 3.1 (0.8-1.4); PROTHROMBIN TIME PATIENT 32.3 SEC (12.2-14.7)
[2022-04-08 13:05] LABS: OCCULT BLOOD,GASTRIC FLUID POSITIVE (NEGATIVE)
[2022-04-08 13:43] LABS: BAND NEUTROPHILS 0 %; BASOPHILS % (MANUAL) 0 %; EOSINOPHILS % (MANUAL) 0 %; LYMPHOCYTES % (MANUAL) 3 %; MONOCYTES % (MANUAL) 4 %; NEUTROPHILS % (MANUAL) 93 %; RBC MORPH NORMAL
--- NOTE | 2022-04-08 16:06 | Consultation - Surgery ---
NAVA LYNN 04/08/22 1606: History of Present Illness History of Present Illness Patient Consulted On(gemini/time) 04/08/22 16:01 Date Seen by Provider: Apr 08, 2022 Time Seen by Provider: 03:45 History of Present Illness 86yo Male with PMH of [place], diabetes, AFib, and GERD presented with a chief complaint of spitting up blood. He has had two episodes of emesis that he described as black. The first episode was yesterday around noon after eating. He said the emesis came out of nowhere and from what he can recall he had no nausea prior to the event. When asked if he took any medicine after vomiting the first time he said he does not recall. He had a second episode of emesis this morning at 1000 which was larger volume and black, after this time he came to the hospital. He denies pain throughout the episodes of emesis, and he denies having any pain now. He has no nausea at this time and does not feel the urge to vomit again. His last BM was this morning before he came to the hospital, he said it was loose but denied BRB or melena. Allergies and Home Medications Allergies Coded Allergies: No Known Drug Allergies (Unverified , 05/27/20) Patient Home Medication List Apixaban (Eliquis) 5 Mg Tablet, 5 MG PO BID, (Reported) Entered as Reported by: VERONICA JOHNSON on 04/16/20 1355 Cefuroxime Axetil (Cefuroxime) 250 Mg Tablet, 250 MG PO BID Prescribed by: TONY MELVIN on 03/11/211810 Cholecalciferol (Vitamin D3) (Vitamin D3) 25 Mcg Tablet, 25 MCG PO DAILY, (Reported) Entered as Reported by: VERONICA JOHNSON on 04/16/20 1355 Diltiazem HCl (Diltiazem 24Hr ER) 120 Mg Cap.er.24h, 120 MG PO DAILY, (Reported) Entered as Reported by: VERONICA JOHNSON on 04/16/20 1355 Lactobac Cmb #3/Fos/Pantethine (Probiotic & Acidophilus Cap) 1 Each Capsule, 1 EACH PO HS, (Reported) Entered as Reported by: VERONICA JOHNSON on 01/14/20 1508 Mirabegron (Myrbetriq) 50 Mg Tab.er.24h, 50 MG PO HS, (Reported) Entered as Reported by: VERONICA JOHNSON on 04/16/20 1355 Multivitamin (Multivitamin) 1 Each Tablet, 1 EACH PO DAILY, (Reported) Entered as Reported by: VERONICA JOHNSON on 04/16/20 1355 Pantoprazole Sodium (Pantoprazole Sodium) 40 Mg Tablet.dr, 40 MG PO BID Prescribed by: NATHANIEL OLIVA on 04/19/20 1008 Pioglitazone HCl (Actos) 45 Mg Tablet, 45 MG PO DAILY, (Reported) Entered as Reported by: MIKE MORALES on 02/13/20 1413 Pravastatin Sodium (Pravastatin Sodium) 10 Mg Tablet, 10 MG PO HS, (Reported) Entered as Reported by: MIKE MORALES on 02/13/20 1413 Prednisone (Prednisone) 20 Mg Tab, 40 MG PO DAILY Prescribed by: TONY MELVIN on 03/11/21 1811 Tamsulosin HCl (Flomax) 0.4 Mg Cap, 0.4 MG PO HS, (Reported) Entered as Reported by: VERONICA JOHNSON on 01/14/20 1506 Zolpidem Tartrate (Ambien Cr) 6.25 Mg Tab.mphase, 6.25 MG PO HS, (Reported) Entered as Reported by: VERONICA JOHNSON on 04/16/20 1355 Past Cftmojf-Wgbdlm-Tmptrx Hx Patient Social History Smoking Status: Former Smoker (quit 30 years ago) Former Smoker, Quit: Feb 12, 1990 Type Used: Cigarettes 2nd Hand Smoke Exposure: Yes Recent Hopitalizations: Yes (APR 2020-[facility] FOR HEART FAILURE) Alcohol Use?: Yes (occasional beer with dinner) Have you traveled recently?: No Immunizations Up To Date Tetanus Booster (TDap): Unknown PED Vaccines UTD: No Date of Pneumonia Vaccine: Feb 13, 2016 Date of Influenza Vaccine: Apr 28, 2020 Seasonal Allergies Seasonal Allergies: No Surgeries History of Surgeries: Yes (TKR, ureter bypass) Surgeries: Appendectomy, Gallbladder (cholecystectomy), Joint Replacement, Orthopedic, Valve Replacement Respiratory History of Respiratory Disorde: Yes Respiratory Disorders: Pneumonia Cardiovascular History of Cardiac Disorders: Yes Cardiac Disorders: Atrial Fibrillation, Heart Attack, High Cholesterol, Valvular Heart Disease Neurological History of Neurological Disord: No (no stroke, no hx of seizure) Reproductive System Hx Reproductive Disorders: No Sexually Transmitted Disease: No HIV/AIDS: No Genitourinary History of Genitourinary Disor: Yes Genitourinary Disorders: Benign Prostatic Hyperpl, Prostate Problems Gastrointestinal History of Gastrointestinal Di: Yes Gastrointestinal Disorders: Gastroesophageal Reflux, Gastrointestinal Bleed (LGIB around a year and a half ago) Musculoskeletal History of Musculoskeletal Dis: Yes Musculoskeletal Disorders: Arthritis Endocrine History of Endocrine Disorders: Yes Endocrine Disorders: Diabetes, Non-Insulin dep HEENT History of HEENT Disorders: Yes Hearing Impairment: Hard of Hearing, Bilateral Hearing Aide Cancer History of Cancer: Yes Cancer: Skin (melanoma, removed on two occasions) Psychosocial History of Psychiatric Problem: No (no anxiety or depression) Integumentary History of Skin or Integumenta: Yes (melanoma) Blood Transfusions History of Blood Disorders: No Adverse Reaction to a Blood Tr: No (HAS HAD BLOOD WITH NO REACTION) Family Medical History Significant Family History: Heart Disease, Hypertension, Stroke Family Medial History: Alcoholism G8 BROTHER Arthritis 19 MOTHER Completed stroke 19 FATHER Diabetes mellitus 19 MOTHER Hypertension 19 FATHER 19 MOTHER Myocardial infarction G8 SISTER Review of Systems-General Constitutional: No chills, No fever, No weight loss EENTM: No hoarseness, No throat pain, No throat swelling Respiratory: cough; No short of breath; other (hiccups) Cardiovascular: No chest pain; Hx of Intervention; No syncope Gastrointestinal: No abdominal pain; diarrhea; No dysphagia; hematemesis (black emesis); No melena, No nausea Genitourinary: No dysuria, No hematuria; other (history of urologic surgery) Musculoskeletal: back pain (chronic); No neck pain Skin: dryness, hx of skin cancer, other (thin) Psychiatric/Neurological: Denies Headache, Denies Weakness Physical Exam-General Problems Physical Exam Vital Signs Vital Signs - First Documented 04/08/22 12:20 Temp 36.4 Pulse 93 Resp 20 B/P (MAP) 124/67 (86) Capillary Refill : General Appearance: no apparent distress, obese HEENT: PERRL/EOMI, other (bloodshot eyes b/l) Neck: non-tender, supple Respiratory: lungs clear, normal breath sounds, no respiratory distress, no accessory muscle use Cardiovascular: irregularly irregular, other (normal rate) Peripheral Pulses: 2+ Dorsalis Pedis (R), 2+ Left Dors-Pedis (L), 2+ Radial Pulses (R), 2+ Radial Pulses (L) Gastrointestinal: non tender, soft Back: no CVA tenderness, no vertebral tenderness Extremities: non-tender, no pedal edema, no calf tenderness Neurologic/Psychiatric: alert, oriented x 3 Skin: cool, other, pallor Lymphatic: no adenopathy Data Review Labs Laboratory Tests 04/08/22 12:29: White Blood Count 19.4H, Red Blood Count 4.61, Hemoglobin 13.6, Hematocrit 42, Mean Corpuscular Volume 90, Mean Corpuscular Hemoglobin 30, Mean Corpuscular Hemoglobin Concent 33, Red Cell Distribution Width 17.2H, Platelet Count 165, Mean Platelet Volume 10.6, Immature Granulocyte % (Auto) 1, Neutrophils (%) (Auto) 92H, Lymphocytes (%) (Auto) 3L, Monocytes (%) (Auto) 5, Eosinophils (%) (Auto) 0, Basophils (%) (Auto) 0, Neutrophils # (Auto) 17.7H, Lymphocytes # (Auto) 0.5L, Monocytes # (Auto) 1.0, Eosinophils # (Auto) 0.0, Basophils # (Auto) 0.0, Immature Granulocyte # (Auto) 0.1, Neutrophils % (Manual) 93, Lymphocytes % (Manual) 3, Monocytes % (Manual) 4, Eosinophils % (Manual) 0, Basophils % (Manual) 0, Band Neutrophils 0, Blood Morphology Comment NORMAL, Prothrombin Time 32.3H, INR Comment 3.1H, Gastric Fluid Occult Blood POSITIVEH, Sodium Level 140, Potassium Level 4.5, Chloride Level 101, Carbon Dioxide Level 21, Anion Gap 18H, Blood Urea Nitrogen 33H, Creatinine 1.83H, Estimat Glomerular Filtration Rate 35, BUN/Creatinine Ratio 18, Glucose Level 233H, Calcium Level 9.2, Corrected Calcium 9.4, Total Bilirubin 1.0, Aspartate Amino Transf (AST/SGOT) 16, Alanine Aminotransferase (ALT/SGPT) 11, Alkaline Phosphatase 89, Total Protein 6.6, Albumin 3.7 VIJAYA LEO DO 04/08/22 1705: History of Present Illness History of Present Illness Time Seen by Provider: 16:41 History of Present Illness Surgery asked to consult regarding coffee ground emesis. HPI per ED:Here with report of vomiting coffee-ground emesis today. Started having some stomach upset yesterday after eating at [employer]. He did have some Zofran yesterday and did not have much relief. Called his doctor's office today who had prescription sent out for him. They called the doctor's office back after noting the dark coffee-ground emesis and she encouraged him to come to the emergency department which she has done. He denies any significant pain but does have some nausea. He is hiccuping. He is on Coumadin for A. fib and valve repair. He has had lower GI bleed previously. Denies fever chills or other concerns currently. I spoke to pt's daughter and then to pt; he is very hard of hearing. Denied abdominal pain. He was started on IV Protonix drip and is on Coumadin. He has not had any more vomiting. He has hx of Lower GI bleed about 2 yrs ago (Hg got down to 4), but only polyps found nothing major. Allergies and Home Medications Allergies Coded Allergies: No Known Drug Allergies (Unverified , 05/27/20) Patient Home Medication List Home Medication List Reviewed: Yes Apixaban (Eliquis) 5 Mg Tablet, 5 MG PO BID, (Reported) Entered as Reported by: VERONICA JOHNSON on 04/16/20 1355 Cefuroxime Axetil (Cefuroxime) 250 Mg Tablet, 250 MG PO BID Prescribed by: TONY MELVIN on 03/11/21 181 Cholecalciferol (Vitamin D3) (Vitamin D3) 25 Mcg Tablet, 25 MCG PO DAILY, (Reported) Entered as Reported by: VERONICA JOHNSON on 04/16/20 1355 Diltiazem HCl (Diltiazem 24Hr ER) 120 Mg Cap.er.24h, 120 MG PO DAILY, (Reported) Entered as Reported by: VERONICA JOHNSON on 04/16/20 1355 Lactobac Cmb #3/Fos/Pantethine (Probiotic & Acidophilus Cap) 1 Each Capsule, 1 EACH PO HS, (Reported) Entered as Reported by: VERONICA JOHNSON on 01/14/20 1508 Mirabegron (Myrbetriq) 50 Mg Tab.er.24h, 50 MG PO HS, (Reported) Entered as Reported by: VERONICA JOHNSON on 04/16/20 1355 Multivitamin (Multivitamin) 1 Each Tablet, 1 EACH PO DAILY, (Reported) Entered as Reported by: VERONICA JOHNSON on 04/16/20 1355 Pantoprazole Sodium (Pantoprazole Sodium) 40 Mg Tablet.dr, 40 MG PO BID Prescribed by: NATHANIEL OLIVA on 04/19/20 1008 Pioglitazone HCl (Actos) 45 Mg Tablet, 45 MG PO DAILY, (Reported) Entered as Reported by: MIKE MORALES on 02/13/20 1413 Pravastatin Sodium (Pravastatin Sodium) 10 Mg Tablet, 10 MG PO HS, (Reported) Entered as Reported by: MIKE MORALES on 02/13/20 1413 Prednisone (Prednisone) 20 Mg Tab, 40 MG PO DAILY Prescribed by: TONY MELVIN on 03/11/21 1811 Tamsulosin HCl (Flomax) 0.4 Mg Cap, 0.4 MG PO HS, (Reported) Entered as Reported by: VERONICA JOHNSON on 01/14/20 1506 Zolpidem Tartrate (Ambien Cr) 6.25 Mg Tab.mphase, 6.25 MG PO HS, (Reported) Entered as Reported by: VERONICA JOHNSON on 04/16/20 1355 Past Kxrqcpy-Zpnpwi-Ovhedl Hx Patient Social History Smoking Status: Former Smoker (quit 30 years ago) Alcohol Use?: Yes (occasional beer with dinner) Surgeries History of Surgeries: Yes (TKR, ureter bypass) Surgeries: Appendectomy, Gallbladder (cholecystectomy), Joint Replacement, Orthopedic, Valve Replacement Respiratory History of Respiratory Disorde: Yes Respiratory Disorders: COPD Cardiovascular History of Cardiac Disorders: Yes Cardiac Disorders: Atrial Fibrillation, Heart Attack, High Cholesterol, Valvular Heart Disease Neurological History of Neurological Disord: No (no stroke, no hx of seizure) Gastrointestinal History of Gastrointestinal Di: Yes Gastrointestinal Disorders: Gastroesophageal Reflux, Gastrointestinal Bleed (LGIB around a year and a half ago), Diverticulosis Musculoskeletal History of Musculoskeletal Dis: Yes Musculoskeletal Disorders: Arthritis Endocrine History of Endocrine Disorders: No HEENT History of HEENT Disorders: Yes Hearing Impairment: Hard of Hearing Cancer History of Cancer: Yes Cancer: Skin (melanoma, removed on two occasions) Psychosocial History of Psychiatric Problem: No (no anxiety or depression) Family Medical History Significant Family History: Heart Disease, Diabetes, Hypertension Family Medial History: Alcoholism G8 BROTHER Arthritis 19 MOTHER Completed stroke 19 FATHER Diabetes mellitus 19 MOTHER Hypertension 19 FATHER 19 MOTHER Myocardial infarction G8 SISTER Review of Systems-General Constitutional: No chills, No fever, No weight loss EENTM: No hoarseness, No throat pain, No throat swelling Respiratory: cough; No short of breath Cardiovascular: No chest pain; Hx of Intervention; No syncope Gastrointestinal: No abdominal pain; diarrhea; No dysphagia; hematemesis (black emesis); No melena, No nausea Genitourinary: No dysuria, No hematuria Musculoskeletal: back pain (chronic), joint pain, joint swelling; No neck pain Skin: dryness, hx of skin cancer, other (thin) Psychiatric/Neurological: Denies Anxiety, Denies Depressed, Denies Headache, Denies Weakness Physical Exam-General Problems Physical Exam General Appearance: no apparent distress, obese Eyes: Bilateral Eye PERRL, Bilateral Eye EOMI HEENT: pharynx normal; No scleral icterus (R), No scleral icterus (L); other (bloodshot eyes b/l) Neck: non-tender, supple Respiratory: lungs clear, normal breath sounds, no respiratory distress, no accessory muscle use Cardiovascular: irregularly irregular, other (normal rate) Peripheral Pulses: 2+ Dorsalis Pedis (R), 2+ Left Dors-Pedis (L), 2+ Radial Pulses (R), 2+ Radial Pulses (L) Gastrointestinal: non tender, soft, other (diastasis recti) Back: no CVA tenderness, no vertebral tenderness Extremities: non-tender, no pedal edema, no calf tenderness Neurologic/Psychiatric: alert, oriented x 3 Skin: cool, pallor Lymphatic: no adenopathy (neck, groin) Assessment/Plan Assessment/Plan Assessment/Plan Coffee Ground Emesis - probable UGI bleed Recent Valve Sx Long-term Anticoagulation Afib I spoke with pt's daughter and she already talked to her brother (who has power of erisa attorney), they want to be conservative at this point and monitor H/H. They don't want to foster to do any procedure. I think this is a very reasonable idea/plan, he is older and if we are not going to do a major surgery; why do the minor procedure. They can change their mind at any time. I will follow along in case he needs EGD or more. I also discussed this case with ED physician. Supervisory-Addendum Brief Verification & Attestation Participated in pt care: history, MDM, physical Personally performed: exam, history, MDM, supervision of care Care discussed with: Medical Student Procedures: n/a Verification and Attestation of Medical Student E/M Service A medical student performed and documented this service. I then reviewed and verified all information documented by the medical student and made modifications to such information, when appropriate. I personally performed a physical exam, medical decision making and then discussed any differences between the notes and made revisions as necessary to create one note. Vijaya Leo , 04/08/22 , 17:11 NAVA YLNN Apr 08, 2022 16:06 VIJAYA LEO DO Apr 08, 2022 17:05
[2022-04-08 16:07] VITALS: BP 118/69
[2022-04-08] MEDS ORDERED: ONDANSETRON 4 MG/2 ML (SDV) Z0FRAN IVP PRN (16:15)
[2022-04-08] MEDS: NS IV 1000 ML 1,000 ML IV SCH (16:37)
[2022-04-08] MEDS: PANTOPRAZOLE DRIP 200 MG/NS 100 ML IV SCH ×2 (17:24)
[2022-04-08 19:21] VITALS: BP 111/66
--- NOTE | 2022-04-08 19:37 | History & Physical ---
History of Present Illness History of Present Illness Reason for visit/HPI Jonnathan Glez is an 86 y/o male who is known to me from clinic. He reports that he had stomach upset this morning, vomited all over the porch, and his called the office to report that they thought he had food poisoning. We asked Gwen if he had any blood or black or dark brown flecks in the emesis. She denied seeing anything indicative of blood, but did note that he ate "ground beef and drank coffee this morning" and it was hard to tell. We advised her that if there was anything like that to take him to the ER and we sent out carafate and zofran to the pharmacy. He started to get sick again and they took him to the ER for eval/treatment. Jonnathan currently denies abdominal pain, nausea or any other acute concerns at this time. Date of Admission Apr 08, 2022 at 14:00 Date Seen by a Provider: Apr 08, 2022 Time Seen by a Provider: 16:45 I consulted on this patient on 04/08/22 19:30 Attending Physician Nathaniel Barrientos MD Admitting Physician Admitting Physician: Nathaniel Barrientos MD Attending Physician: Nathaniel Barrientos MD Consult Dr. Caba Allergies and Home Medications Allergies Coded Allergies: No Known Drug Allergies (Unverified , 05/27/20) Patient Home Medication List Home Medication List Reviewed: Yes Apixaban (Eliquis) 5 Mg Tablet, 5 MG PO BID, (Reported) Entered as Reported by: VERONICA JOHNSON on 04/16/20 135 Last Action: Held Cefuroxime Axetil (Cefuroxime) 250 Mg Tablet, 250 MG PO BID Prescribed by: TONY MELVIN on 03/11/211 Last Action: Held Cholecalciferol (Vitamin D3) (Vitamin D3) 25 Mcg Tablet, 25 MCG PO DAILY, (Reported) Entered as Reported by: VERONICA JOHNSON on 04/16/20 135 Last Action: Held Diltiazem HCl (Diltiazem 24Hr ER) 120 Mg Cap.er.24h, 120 MG PO DAILY, (Reported) Entered as Reported by: VERONICA JOHNSON on 04/16/20 135 Last Action: Reviewed Lactobac Cmb #3/Fos/Pantethine (Probiotic & Acidophilus Cap) 1 Each Capsule, 1 EACH PO HS, (Reported) Entered as Reported by: VERONICA JOHNSON on 01/14/20 1508 Last Action: Held Mirabegron (Myrbetriq) 50 Mg Tab.er.24h, 50 MG PO HS, (Reported) Entered as Reported by: VERONICA JOHNSON on 04/16/20 135 Last Action: Held Multivitamin (Multivitamin) 1 Each Tablet, 1 EACH PO DAILY, (Reported) Entered as Reported by: VERONICA JOHNSON on 04/16/20 135 Last Action: Held Pantoprazole Sodium (Pantoprazole Sodium) 40 Mg Tablet.dr, 40 MG PO BID Prescribed by: NATHANIEL BARRIENTOS on 04/19/20 1008 Last Action: Reviewed Pioglitazone HCl (Actos) 45 Mg Tablet, 45 MG PO DAILY, (Reported) Entered as Reported by: MIKE MORALES on 02/13/20 141 Last Action: Held Pravastatin Sodium (Pravastatin Sodium) 10 Mg Tablet, 10 MG PO HS, (Reported) Entered as Reported by: MIKE MORALES on 02/13/20 141 Last Action: Held Tamsulosin HCl (Flomax) 0.4 Mg Cap, 0.4 MG PO HS, (Reported) Entered as Reported by: VERONICA JOHNSON on 01/14/20 150 Last Action: Reviewed Zolpidem Tartrate (Ambien Cr) 6.25 Mg Tab.mphase, 6.25 MG PO HS, (Reported) Entered as Reported by: VERONICA JOHNSON on 04/16/20 135 Last Action: Held Discontinued Medications Prednisone (Prednisone) 20 Mg Tab, 40 MG PO DAILY Prescribed by: TONY MELVIN on 03/11/211810 Last Action: Discontinued Past Zrgtnpc-Hrgzxe-Nhyrlv Hx Patient Social History Marrital Status: Living Status: lives at home with spouse and their niece who is their caregiver Employed/Student: retired (post[employer]) Tobacco Use?: No Smoking Status: Former Smoker (quit 30 years ago) Use of E-Cig and/or Vaping dev: No Substance use?: Yes Substance type: Caffeine Substance frequency: Daily Alcohol Use?: Yes (occasional beer with dinner) Pt feels they are or have been: No Immunizations Up To Date Date of Influenza Vaccine: Apr 28, 2020 First/Initial COVID19 Vaccinat: 08/14 Second COVID19 Vaccination Mason: 09/14 Tetanus Booster (TDap): Unknown Hepatitis A: No Hepatitis B: No PED Vaccines UTD: No Date of Pneumonia Vaccine: Feb 13, 2016 Seasonal Allergies Seasonal Allergies: No Current Status Advance Directives: No Communicates: Verbally Primary Language: Slovak Preferred Spoken Language: Slovak Sensory deficits: Hearing impairment Implanted or Applied Medical D: Heart mechanical device, Orthopedic hardware Past Medical History Surgeries: Appendectomy, Gallbladder (cholecystectomy), Joint Replacement, Orthopedic, Valve Replacement COPD Currently Using CPAP: No Currently Using BIPAP: No Atrial Fibrillation, Heart Attack, High Cholesterol, Valvular Heart Disease Sexually Transmitted Disease: No HIV/AIDS: No Benign Prostatic Hyperpl, Prostate Problems Gastroesophageal Reflux, Gastrointestinal Bleed (LGIB around a year and a half a go), Diverticulosis Arthritis Diabetes, Non-Insulin dep Hearing Impairment: Hard of Hearing Skin (melanoma, removed on two occasions) Did You Recieve Any Treatments: Yes What Type of Treatment Did You: Surgical Intervention Blood Disorders: No Adverse Reaction/Blood Tranf: No (HAS HAD BLOOD WITH NO REACTION) Family Medical History Reviewed and Corrections made Alcoholism G8 BROTHER Arthritis 19 MOTHER Completed stroke 19 FATHER Diabetes mellitus 19 MOTHER Hypertension 19 FATHER 19 MOTHER Myocardial infarction G8 SISTER Heart Disease, Diabetes, Hypertension Review of Systems Constitutional: No chills, No fever, No malaise, No weakness EENTM: No hoarseness, No throat pain Respiratory: No cough, No dyspnea on exertion, No short of breath Cardiovascular: No chest pain, No palpitations Gastrointestinal: abdominal pain; No constipation, No diarrhea, No dysphagia; hematemesis; No loss of appetite; nausea, vomiting Genitourinary: No dysuria; frequency, incontinence (urge) Musculoskeletal: joint pain; No muscle pain, No muscle weakness Skin: No dryness, No lesions, No rash Psychiatric/Neurological: Denies Anxiety, Denies Depressed, Denies Weakness All Other Systems Reviewed Negative Unless Noted: Yes Physical Exam Vital Signs Vital Signs - First Documented 04/08/22 04/08/22 04/08/22 12:20 15:45 16:07 Temp 36.4 Pulse 93 Resp 20 B/P (MAP) 124/67 (86) Pulse Ox 98 O2 Delivery Room Air Capillary Refill : Height, Weight, BMI Height: '" Weight: lbs. oz. kg; 29.63 BMI Method: General Appearance: No Apparent Distress, WD/WN HEENT: PERRL/EOMI, Pharynx Normal Neck: Full Range of Motion, Supple Respiratory: Chest Non Tender, Lungs Clear, Normal Breath Sounds, No Accessory Muscle Use, No Respiratory Distress Cardiovascular: Systolic Murmur Gastrointestinal: Normal Bowel Sounds, Non Tender, Soft Rectal: Deferred Extremity: Normal Capillary Refill, Non Tender, No Calf Tenderness, No Pedal Edema Neurologic/Psychiatric: Alert, Oriented x3, Normal Mood/Affect Skin: Normal Color, Warm/Dry Lymphatic: No Adenopathy Assessment/Plan Assessment and Plan Acute Gastrointestinal bleeding Leukocytosis 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 Caba, pt given carafate, protonix in the ER. - Family has decided against EGD at this time, plan for conservative treatment/therapy with oral carafate and IV protonix drip. 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 Chronic Atrial fibrillation - restart home diltiazem dosing tomorrow if able to take PO meds - hold anticoagulation due to bleeding Advanced Age with hx of severe delirium - supportive care - Diabetes Mellitus - hold medications at this time. 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
[2022-04-08] MEDS ORDERED: SUCRALFATE 1 GM (CARAFATE) TAB ONE (20:08)
[2022-04-08 20:10] LABS: HEMOGLOBIN 12.2 g/dL (13.3-17.7)
[2022-04-08] MEDS: SUCRALFATE 1 GM (CARAFATE) TAB PO SCH (20:13)
[2022-04-08 20:36] VITALS: BP 111/66
[2022-04-08] MEDS ORDERED: SUCRALFATE 1 GM (CARAFATE) TAB PO SCH (21:00)
[2022-04-08] MEDS ORDERED: PANTOPRAZOLE 40 MG (PROTONIX) VIAL IV SCH (21:00)
[2022-04-08 23:25] VITALS: BP 113/64
[2022-04-09 04:24] VITALS: BP 107/65
[2022-04-09 05:40] LABS: HEMOGLOBIN 10.6 g/dL (13.3-17.7); MEAN PLATELET VOLUME 10.6 fL (9.0-12.2); WHITE BLOOD COUNT 12.6 10^3/uL (4.3-11.0)
[2022-04-09 05:54] LABS: ALBUMIN 2.9 GM/DL (3.2-4.5); BILIRUBIN,TOTAL 0.8 MG/DL (0.1-1.0); CALCIUM 8.1 MG/DL (8.5-10.1); CREATININE SERUM 1.71 MG/DL (0.60-1.30); POTASSIUM 4.4 MMOL/L (3.6-5.0)
[2022-04-09] MEDS: NS IV 1000 ML 1,000 ML IV SCH ×2 (05:54→17:06)
[2022-04-09] MEDS: SUCRALFATE 1 GM (CARAFATE) TAB PO SCH ×3 (08:11→20:11)
--- NOTE | 2022-04-09 08:23 | Progress Note - Surgery ---
NAVA LYNN 04/09/22 0823: Subjective Date Seen by a Provider: Apr 09, 2022 Time Seen by a Provider: 08:00 Subjective/Events-last exam Patient says he feels good today. He denied having emesis last night, when I spoke with the RN she informed me he had 2 episodes of emesis, she described the first as coffee-ground and the second as clear. He did endorse having 2 bowel movements since we spoke yesterday and both of them were loose, black, and tarry. He is in no pain. Review of Systems General: No Chills, No Night Sweats; Fatigue (has been present for nearly a month) HEENT: No Head Aches, No Dysphasia, No Sore Throat Pulmonary: No Dyspnea, No Cough; Other (hiccups) Cardiovascular: No: Chest Pain, Lt Headedness Gastrointestinal: Vomiting, Diarrhea, Melena, Other (bowel incontinence); No: Nausea, Abdominal Pain Genitourinary: No Dysuria; Incontinence; No Hematuria Musculoskeletal: No: neck pain, shoulder pain, back pain, leg pain Neurological: Weakness (for nearly a month), Confusion Objective Exam Vital Signs Date Time Temp Pulse Resp B/P (MAP) Pulse Ox O2 Delivery O2 Flow Rate FiO2 04/09/22 04:24 37.3 75 18 107/65 (79) 97 Room Air 04/08/22 23:25 37.5 84 18 113/64 (80) 93 Room Air 04/08/22 20:36 37.1 84 18 111/66 (81) 95 Room Air 04/08/22 20:00 Room Air 04/08/22 19:21 37.1 84 16 111/66 (81) 95 04/08/22 16:07 36.5 83 18 118/69 (85) 98 Room Air 04/08/22 15:45 Room Air 04/08/22 15:22 36.4 78 20 127/59 04/08/22 12:20 36.4 93 20 124/67 (86) I & O 04/09/22 07:00 Intake Total 2410 ml Balance 2410 ml Capillary Refill : General Appearance: No Apparent Distress, Obese HEENT: PERRL/EOMI; No Scleral Icterus (L), No Scleral Icterus (R) Neck: Non Tender, Supple Respiratory: Lungs Clear, Normal Breath Sounds, No Accessory Muscle Use, No Respiratory Distress Cardiovascular: Irregularly Irregular, Other (regular rate) Peripheral Pulses: 1+ Dorsalis Pedis (R), 1+ Left Dors-Pedis (L); 2+ Radial Pulses (R), 2+ Radial Pulses (L) Gastrointestinal: non tender, distended, other (well healed past surgical scars) Extremity: Non Tender, No Calf Tenderness, No Pedal Edema Neurologic/Psychiatric: Alert, Oriented x3, Normal Mood/Affect Skin: Warm/Dry, Other (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) Lymphatic: No Adenopathy Results Lab Laboratory Tests 04/08/22 12:29: White Blood Count 19.4H, Red Blood Count 4.61, Hemoglobin 13.6, Hematocrit 42, Mean Corpuscular Volume 90, Mean Corpuscular Hemoglobin 30, Mean Corpuscular Hemoglobin Concent 33, Red Cell Distribution Width 17.2H, Platelet Count 165, Mean Platelet Volume 10.6, Immature Granulocyte % (Auto) 1, Neutrophils (%) (Auto) 92H, Lymphocytes (%) (Auto) 3L, Monocytes (%) (Auto) 5, Eosinophils (%) (Auto) 0, Basophils (%) (Auto) 0, Neutrophils # (Auto) 17.7H, Lymphocytes # (Auto) 0.5L, Monocytes # (Auto) 1.0, Eosinophils # (Auto) 0.0, Basophils # (Auto) 0.0, Immature Granulocyte # (Auto) 0.1, Neutrophils % (Manual) 93, Lymphocytes % (Manual) 3, Monocytes % (Manual) 4, Eosinophils % (Manual) 0, Basophils % (Manual) 0, Band Neutrophils 0, Blood Morphology Comment NORMAL, Prothrombin Time 32.3H, INR Comment 3.1H, Gastric Fluid Occult Blood POSITIVEH, Sodium Level 140, Potassium Level 4.5, Chloride Level 101, Carbon Dioxide Level 21, Anion Gap 18H, Blood Urea Nitrogen 33H, Creatinine 1.83H, Estimat Glomerular Filtration Rate 35, BUN/Creatinine Ratio 18, Glucose Level 233H, Calcium Level 9.2, Corrected Calcium 9.4, Total Bilirubin 1.0, Aspartate Amino Transf (AST/SGOT) 16, Alanine Aminotransferase (ALT/SGPT) 11, Alkaline Phosphatase 89, Total Protein 6.6, Albumin 3.7 04/08/22 20:03: Hemoglobin 12.2L, Hematocrit 38L 9/16/22 05:22: White Blood Count 12.6H, Red Blood Count 3.55L, Hemoglobin 10.6L, Hematocrit 32L , Mean Corpuscular Volume 90, Mean Corpuscular Hemoglobin 30, Mean Corpuscular Hemoglobin Concent 33, Red Cell Distribution Width 17.4H, Platelet Count 129L, Mean Platelet Volume 10.6, Sodium Level 137, Potassium Level 4.4, Chloride Level 105, Carbon Dioxide Level 21, Anion Gap 11, Blood Urea Nitrogen 47H, Creatinine 1.71H, Estimat Glomerular Filtration Rate 39, BUN/Creatinine Ratio 27, Glucose Level 150H, Calcium Level 8.1L, Corrected Calcium 9.0, Total Bilirubin 0.8, Aspartate Amino Transf (AST/SGOT) 13, Alanine Aminotransferase (ALT/SGPT) 11, Alkaline Phosphatase 61, Total Protein 5.0L, Albumin 2.9L, Percent Immature Platelet Fraction 4.4 Assessment/Plan Assessment/Plan Assessment/Plan Coffee Ground Emesis - probable UGI bleed Melena Recent Valve Sx Long-term Anticoagulation Afib Patient hgb decreased from 13.6 on admission to 10.6 this AM. Will monitor with q12 H/H and transfuse if needed. Continue IV fluids, sucralfate and pantoprazole. Clinical Quality Measures DVT/VTE Risk/Contraindication: Contraindications-Pharm: Other *list below* Other: pt has gi bleed KANG CABA DO 04/09/22 1259: Subjective Time Seen by a Provider: 11:29 Subjective/Events-last exam Pt seen and examined, no new complaints. He did have some melena. Review of Systems General: No Chills, No Night Sweats; Fatigue (has been present for nearly a month) HEENT: No Head Aches Pulmonary: No Dyspnea, No Cough; Other (hiccups) Cardiovascular: No: Chest Pain, Lt Headedness Gastrointestinal: Vomiting, Diarrhea, Melena, Other (bowel incontinence); No: Nausea, Abdominal Pain Genitourinary: No Dysuria; Incontinence; No Hematuria Neurological: Weakness (for nearly a month), Confusion Objective Exam General Appearance: No Apparent Distress, Obese HEENT: Moist Mucous Membranes; No Scleral Icterus (L), No Scleral Icterus (R) Respiratory: Lungs Clear, Normal Breath Sounds, No Accessory Muscle Use, No Respiratory Distress Cardiovascular: Irregularly Irregular, Other (regular rate) Gastrointestinal: non tender, distended, other (well healed past surgical scars) Extremity: No Calf Tenderness, No Pedal Edema Neurologic/Psychiatric: Alert, Oriented x3 Skin: Warm/Dry, Other (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 Will monitor with q12 H/H and transfuse if needed; would hold blood thinners. Continue IV fluids, sucralfate and pantoprazole. Supervisory-Addendum Brief Verification & Attestation Participated in pt care: history, MDM, physical Personally performed: exam, history, MDM, supervision of care Care discussed with: Medical Student Procedures: n/a Verification and Attestation of Medical Student E/M Service A medical student performed and documented this service. I then reviewed and verified all information documented by the medical student and made modifications to such information, when appropriate. I personally performed a physical exam, medical decision making and then discussed any differences between the notes and made revisions as necessary to create one note. Kang Caba , 04/09/22 , 13:01 NAVA LYNN Apr 09, 2022 08:23 KANG CABA DO Apr 09, 2022 12:59
[2022-04-09 11:56] VITALS: BP 111/68
[2022-04-09] MEDS ORDERED: POTA-51 PO (15:10)
[2022-04-09] MEDS ORDERED: WRF1T PO ×2 (15:10)
[2022-04-09] MEDS ORDERED: SITA100T12 PO (15:10)
[2022-04-09] MEDS ORDERED: FURO40TA4 PO (15:10)
[2022-04-09] MEDS ORDERED: NF-CRES10T PO (15:10)
[2022-04-09] MEDS ORDERED: PANT40TA52 PO (15:10)
[2022-04-09 15:43] VITALS: BP 125/69
--- NOTE | 2022-04-09 16:29 | Progress Note ---
Subjective Subjective Date Seen by Provider: Apr 09, 2022 Time Seen by Provider: 07:45 Pt reports that he is feeling better. the pt is eating a liquid diet and he denies any abdominal pain, nausea, gi upset or other issues today. His family wants to be as conservative as possible, and they do not want to do an EGD if needed. Review of Systems General: No Chills, No Night Sweats; Fatigue (has been present for nearly a month) HEENT: No Head Aches Pulmonary: No Dyspnea, No Cough; Other (hiccups) Cardiovascular: No: Chest Pain, Lt Headedness Gastrointestinal: Vomiting, Diarrhea, Melena, Other (bowel incontinence); No: Nausea, Abdominal Pain Genitourinary: No Dysuria; Incontinence; No Hematuria Musculoskeletal: No: neck pain, shoulder pain, back pain, leg pain Neurological: Weakness (for nearly a month), Confusion All Other Systems Reviewed All Other Systems Reviewed: Yes Objective Exam Vital Signs Vital Signs Date Time Temp Pulse Resp B/P (MAP) Pulse Ox O2 Delivery O2 Flow Rate FiO2 04/09/22 15:43 36.4 88 20 125/69 (87) 100 Room Air 04/09/22 11:56 37.1 84 18 111/68 (82) 96 Room Air 04/09/22 08:00 Room Air 04/09/22 04:24 37.3 75 18 107/65 (79) 97 Room Air 04/08/22 23:25 37.5 84 18 113/64 (80) 93 Room Air 04/08/22 20:36 37.1 84 18 111/66 (81) 95 Room Air 04/08/22 20:00 Room Air 04/08/22 19:21 37.1 84 16 111/66 (81) 95 I & O 04/09/22 07:00 Intake Total 2410 ml Balance 2410 ml General Appearance: No Apparent Distress, Obese Eyes: Bilateral Eye PERRL, Bilateral Eye EOMI HEENT: Moist Mucous Membranes; No Scleral Icterus (L), No Scleral Icterus (R) Neck: Non Tender, Supple Respiratory: Lungs Clear, Normal Breath Sounds, No Accessory Muscle Use, No Respiratory Distress Cardiovascular: Irregularly Irregular, Other (regular rate) Gastrointestinal: Normal Bowel Sounds, Non Tender, Soft Rectal: Deferred Extremity: No Calf Tenderness, No Pedal Edema Neurologic/Psychiatric: Alert, Oriented x3 Skin: Warm/Dry, Other (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) Lymphatic: No Adenopathy Results Lab Laboratory Tests 04/08/22 20:03: Hemoglobin 12.2L, Hematocrit 38L 04/09/22 05:22: Hemoglobin 10.6L, Hematocrit 32L, White Blood Count 12.6H, Red Blood Count 3.55L , Mean Corpuscular Volume 90, Mean Corpuscular Hemoglobin 30, Mean Corpuscular Hemoglobin Concent 33, Red Cell Distribution Width 17.4H, Platelet Count 129L, Mean Platelet Volume 10.6, Percent Immature Platelet Fraction 4.4, Sodium Level 137, Potassium Level 4.4, Chloride Level 105, Carbon Dioxide Level 21, Anion Gap 11, Blood Urea Nitrogen 47H, Creatinine 1.71H, Estimat Glomerular Filtration Rate 39, BUN/Creatinine Ratio 27, Glucose Level 150H, Calcium Level 8.1L, Corrected Calcium 9.0, Total Bilirubin 0.8, Aspartate Amino Transf (AST/SGOT) 13, Alanine Aminotransferase (ALT/SGPT) 11, Alkaline Phosphatase 61, Total Protein 5.0L, Albumin 2.9L Assessment/Plan Assessment/Plan Admission Dx Acute Gastrointestinal bleeding Leukocytosis 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 Caba, pt given carafate, protonix in the ER. - Family has decided against EGD at this time, plan for conservative treatment/therapy with oral carafate and IV protonix drip. 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 Chronic Atrial fibrillation - restart home diltiazem dosing - hold anticoagulation due to bleeding Advanced Age with hx of severe delirium - supportive care - Diabetes Mellitus - hold medications at this time. 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
[2022-04-09] MEDS: PANTOPRAZOLE DRIP 200 MG/NS 100 ML IV SCH ×2 (17:06)
[2022-04-09 19:08] VITALS: BP 109/66
[2022-04-10 00:18] VITALS: BP 98/58
[2022-04-10 01:12] VITALS: BP 115/71
[2022-04-10 04:02] VITALS: BP 110/56
[2022-04-10] MEDS: NS IV 1000 ML 1,000 ML IV SCH (06:53)
[2022-04-10 07:41] VITALS: BP 100/61
[2022-04-10 08:44] LABS: HEMOGLOBIN 10.1 g/dL (13.3-17.7)
[2022-04-10] MEDS: SUCRALFATE 1 GM (CARAFATE) TAB PO SCH ×2 (09:39→13:13)
--- NOTE | 2022-04-10 10:06 | Progress Note - Surgery ---
NAVA LYNN 04/10/22 1006: Subjective Date Seen by a Provider: Apr 10, 2022 Time Seen by a Provider: 09:55 Subjective/Events-last exam Patient claims he is doing well today. He has not had an episode of emesis or a BM since he was seen yesterday morning. He states he is in no pain. He is voi ding normally. He says he has not been out of the bed since he got to the hospital. Review of Systems General: No Chills, No Night Sweats HEENT: No Head Aches, No Dysphasia, No Sore Throat Pulmonary: No Dyspnea, No Cough Cardiovascular: No: Chest Pain, Lt Headedness Gastrointestinal: No: Nausea, Vomiting, Abdominal Pain Genitourinary: No Dysuria, No Hematuria Musculoskeletal: No: neck pain, back pain, leg pain Neurological: Confusion; No: Weakness Objective Exam Vital Signs Date Time Temp Pulse Resp B/P (MAP) Pulse Ox O2 Delivery O2 Flow Rate FiO2 04/10/22 07:41 36.2 60 16 100/61 (74) 97 Room Air 04/10/22 04:02 36.4 70 16 110/56 (74) 98 Room Air 04/10/22 01:12 80 18 115/71 (86) 97 Room Air 04/10/22 00:18 36.5 65 16 98/58 (71) 97 Room Air 04/09/22 20:00 Room Air 04/09/22 19:08 36.4 82 16 109/66 (80) 99 Room Air 04/09/22 15:43 36.4 88 20 125/69 (87) 100 Room Air 04/09/22 11:56 37.1 84 18 111/68 (82) 96 Room Air I & O 04/10/22 07:00 Intake Total 1930 ml Balance 1930 ml Capillary Refill : General Appearance: No Apparent Distress, Obese HEENT: PERRL/EOMI; No Scleral Icterus (L), No Scleral Icterus (R) Neck: Non Tender, Supple Respiratory: Lungs Clear, Normal Breath Sounds, No Accessory Muscle Use, No Respiratory Distress Cardiovascular: Irregularly Irregular, Other (regular rate) Peripheral Pulses: 1+ Dorsalis Pedis (R), 1+ Left Dors-Pedis (L); 2+ Radial Pulses (R), 2+ Radial Pulses (L) Gastrointestinal: non tender, distended, other (well healed past surgical scars) Extremity: Non Tender, No Calf Tenderness, No Pedal Edema Neurologic/Psychiatric: Alert, Oriented x3 Skin: Warm/Dry, Other (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) Lymphatic: No Adenopathy (cervical) Results Lab Laboratory Tests 04/10/22 08:39: Hemoglobin 10.1L, Hematocrit 31L Assessment/Plan Assessment/Plan Assessment/Plan Coffee Ground Emesis- none today Melena- none today Patient hgb stable at 10.1 from 10.6 yesterday, was 13.6 on admission. Will monitor with AM H/H and transfuse if needed. Continue IV fluids, sucralfate and pantoprazole. Clinical Quality Measures DVT/VTE Risk/Contraindication: Contraindications-Pharm: Other *list below* Other: pt has gi bleed KANG CABA DO 04/10/22 1141: Subjective Time Seen by a Provider: 10:38 Subjective/Events-last exam Pt seen and examined, no new complaints and denies emesis. Review of Systems General: No Chills, No Night Sweats HEENT: No Head Aches, No Sore Throat Pulmonary: No Dyspnea, No Cough Cardiovascular: No: Lt Headedness Gastrointestinal: No: Nausea, Vomiting, Abdominal Pain Objective Exam General Appearance: No Apparent Distress, Obese HEENT: PERRL/EOMI; No Scleral Icterus (L), No Scleral Icterus (R) Respiratory: Lungs Clear, Normal Breath Sounds, No Accessory Muscle Use, No Respiratory Distress Cardiovascular: Irregularly Irregular, Other (regular rate) Gastrointestinal: distended, other (well healed past surgical scars) Extremity: No Pedal Edema Skin: Other (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) Assessment/Plan Assessment/Plan Assessment/Plan Anemia Coffee Ground Emesis- none today Melena- none today Patient hgb basically stable at 10.1 from 10.6 yesterday, was 13.6 on admission. Will monitor with AM H/H and transfuse if needed. Continue IV fluids, sucralfate and pantoprazole. Continue to hold blood thinner. Supervisory-Addendum Brief Verification & Attestation Participated in pt care: history, MDM, physical Personally performed: exam, history, MDM, supervision of care Care discussed with: Medical Student Procedures: n/a Verification and Attestation of Medical Student E/M Service A medical student performed and documented this service. I then reviewed and verified all information documented by the medical student and made modifications to such information, when appropriate. I personally performed a physical exam, medical decision making and then discussed any differences between the notes and made revisions as necessary to create one note. Kang Caba , 04/10/22 , 11:41 NAVA LYNN Apr 10, 2022 10:06 KANG CABA DO Apr 10, 2022 11:41
[2022-04-10] MEDS ORDERED: SUCR1TAB PO (11:41)
[2022-04-10] MEDS ORDERED: PANT40TA52 PO ×2 (11:41)
[2022-04-10 12:14] VITALS: BP 104/55
[2022-04-10 14:20] VITALS: BP 104/55
[2022-04-10 15:56] LABS: INR 3.1 (0.8-1.4); PROTHROMBIN TIME PATIENT 32.7 SEC (12.2-14.7)
== END 2022-04-10 14:25 | disposition home or self-care (01) | DRG 378 ==
LOC: EDUNIT# 12:15 → ER 12:16 → 4TH 14:00
PROVIDERS: ADMIT Family Medicine; ATTEND Internal Medicine
DX: K92.2 Gastrointestinal hemorrhage, unspecified (principal); N17.9 Acute kidney failure, unspecified; I48.20 Chronic atrial fibrillation, unspecified; N18.32 Chronic kidney disease, stage 3b; Z79.01 Long term (current) use of anticoagulants; Z79.899 Other long term (current) drug therapy; Z95.2 Presence of prosthetic heart valve; E78.00 Pure hypercholesterolemia, unspecified; K21.9 Gastro-esophageal reflux disease without esophagitis; M19.90 Unspecified osteoarthritis, unspecified site; Z87.891 Personal history of nicotine dependence; F15.90 Other stimulant use, unspecified, uncomplicated; J44.9 Chronic obstructive pulmonary disease, unspecified; I25.2 Old myocardial infarction; N40.0 Benign prostatic hyperplasia without lower urinary tract symptoms; D72.829 Elevated white blood cell count, unspecified; I12.9 Hypertensive chronic kidney disease with stage 1 through stage 4 chronic kidney disease, or unspecified chronic kidney disease; G47.00 Insomnia, unspecified; E11.22 Type 2 diabetes mellitus with diabetic chronic kidney disease; D64.9 Anemia, unspecified
CPT/HCPCS: 36415; 80053; 82271; 85007; 85014; 85018; 85027; 85610; 86850; 86900; 86901; 93041

== ENCOUNTER → 2022-06-23 | Outpatient (CLI) | payer MEDICARE, OTHER ==
[~2022-06-23] MED LIST changes: +FURO40TA4 PO; +NF-CRES10T PO; +POTA-51 PO; +SITA100T12 PO; +SUCR1TAB PO; +WRF1T PO
== END ==
LOC: CARD 07:44
PROVIDERS: ATTEND Internal Medicine Cardiovascular Disease
DX: I11.9 Hypertensive heart disease without heart failure (principal); I34.0 Nonrheumatic mitral (valve) insufficiency; Z95.2 Presence of prosthetic heart valve
CPT/HCPCS: 93306